=== PATIENT | female | born 1955 ===

== ENCOUNTER 2016-09-30 17:43 | Inpatient (IN) | payer MEDICARE, MEDICAID ==
[2016-09-30 17:44] VITALS: BMI 88.4
--- NOTE | 2016-09-30 18:06 | C.PDOC ---
History Of Present Illness 61 year old patient, with a past medical history of diabetes, hypertension, bilateral above knee amputation, chronic kidney disease, and chronic anemic on procrit, is brought to the ED by ambulance from [facility] for low hemoglobin and worsening renal function. Patient is generally awake and alert. She does not have dementia. Patient denies headache, nausea, vomiting, fever, chills, or any other complaints at this time. Time Seen by Provider: 09/30/16 18:09 Chief Complaint (Nursing): Medical Clearance History Per: Patient, EMS History/Exam Limitations: no limitations Onset/Duration Of Symptoms: Other Current Symptoms Are (Timing): Still Present Severity: None Pain Scale Rating Of: 0 Reports Recently: Treated By A Physician Recent travel outside of the [place]: No Additional History Per: EMS, Correction Past Medical History Reviewed: Historical Data, Nursing Documentation, Vital Signs Vital Signs: Last Vital Signs Temp 97.7 F 09/30/16 18:50 Pulse 64 09/30/16 17:46 Resp 18 09/30/16 17:46 BP 128/63 09/30/16 17:46 Pulse Ox 100 09/30/16 18:56 - Medical History PMH: Anemia, Anxiety, Asthma, COPD, Depression, Diabetes, Emphysema, HTN, Hypercholesterolemia, Hyperlipidemia, Peripheral Edema, Pneumonia, Chronic Kidney Disease Surgical History: - [facility] Procedures AMPUTATION STUMP NICKI (06/24/14) ANGIOPLASTY OR ATHERECTOMY OF OTHER NON-CORONARY VESSEL(S) (12/14/06) APPLICATION OF SPLINT (10/23/04) BELOW KNEE AMPUTAT NEC (12/14/06) CENTRAL VENOUS CATHETER PLACEMENT WITH GUIDANCE (01/30/15) CONTR ABD ARTERIOGRM NEC (10/28/06) CONTR CEREBR ARTERIOGRAM (09/27/04) CONTRAST AORTOGRAM (12/14/06) CONTRAST ARTERIOGRAM NEC (12/14/06) CONTRAST ARTERIOGRAM-LEG (10/28/06) CORONAR ARTERIOGR-2 CATH (08/17/06) DRAINAGE OF GALLBLADDER WITH DRAINAGE DEVICE, PERC APPROACH (02/21/15) ESOPHAGOGASTRODUODENOSCOPY [EGD] W/CLOSED BIOPSY (12/04/11) EXCIS DEBRIDE OF WOUND, INFECT, OR BURN (10/08/11) EXCISION OF SMALL INTESTINE, ENDO, DIAGN (06/26/16) EXCISION OF STOMACH, ENDO, DIAGN (02/21/15) FLUOROSCOPY R UP EXTREM VEIN W L OSM CONTRAST, GUIDANCE (04/08/16) INJECT ANTICOAGULANT (09/18/06) INJECT/INFUSE NEC (05/15/06) INSERTION OF INFUSION DEV INTO SUP VENA CAVA, PERC APPROACH (06/26/16) INSERTION OF [id number] PERIPHERAL VESSEL STENT(S) (10/28/06) INSERTION OF ONE VASCULAR STENT (09/18/06) INSERTION OF THREE VASCULAR STENTS (09/18/06) INTRODUCE OF OTH THERAP SUBST INTO RESP TRACT, VIA OPENING (02/21/15) LEFT HEART CARDIAC CATH (08/17/06) LT HEART ANGIOCARDIOGRAM (08/17/06) MAGNETIC RESONANCE IMAGING OF BRAIN AND BRAIN STEM (05/21/03) MRI OF OTHER AND UNSPECIFIED SITES (09/27/04) NEBULIZER THERAPY (05/26/12) NON-INVASIVE MECHANICAL VENTILATION (10/08/11) NONEXCIS DEBRID OF WOUND, INFECT, OR BURN (09/08/14) PACKED CELL TRANSFUSION (07/18/14) PERC ANGIOPLASTY OR ATHERECTOMY OF PRECER (EXTRACRAN) VES(S) (09/18/06) PERC INSERTION OF CAROTID ARTERY STENT(S) (09/18/06) PROCEDURE ON SINGLE VESSEL (09/18/06) PROCEDURE ON TWO VESSELS (09/18/06) TRANSFUSE NONAUT RED BLOOD CELLS IN PERIPH VEIN, PERC (06/26/16) ULTRASONOGRAPHY OF RIGHT UPPER EXTREMITY VEINS, GUIDANCE (04/08/16) ULTRASONOGRAPHY OF SUPERIOR VENA CAVA, GUIDANCE (12/13/15) UPPER LIMB ENDARTERECTOM (12/14/06) VACCINATION NEC (09/08/14) VENOUS CATHETERIZATION NEC (05/06/12) Family History: States: Unknown Family Hx - Social History Hx Tobacco Use: No Hx Alcohol Use: No Hx Substance Use: No - Immunization History Hx Tetanus Toxoid Vaccination: No Review Of Systems Except As Marked, All Systems Reviewed And Found Negative. Constitutional: Negative for: Fever Gastrointestinal: Negative for: Nausea, Vomiting Neurological: Negative for: Headache Physical Exam - Physical Exam Appears: Non-toxic, No Acute Distress Skin: Warm, Dry, Pale Head: Atraumatic, Normacephalic Eye(s): bilateral: EOMI, Conjunctiva Pale Ear(s): Bilateral: Normal Nose: Normal Oral Mucosa: Moist Lips: Pale Throat: Normal Neck: Normal ROM, Supple Chest: Symmetrical Cardiovascular: Rhythm Regular Respiratory: Normal Breath Sounds (poor air entry), No Rales, No Rhonchi, No Wheezing Gastrointestinal/Abdominal: Soft, No Tenderness, No Guarding, No Rebound, Other (morbidly obese) Rectal: Hemorrhoids, Other (normal brown stool in vault; no gross blood) Back: Normal Inspection, No CVA Tenderness Pelvic: Normal External Exam, Other (groin: excoritated and red from wearing diaper) Extremity: Other (no pressure sores; bilateral stumps are clean and well) Neurological/Psych: Oriented x3 ED Course And Treatment O2 Sat by Pulse Oximetry: 100 (room air) Pulse Ox Interpretation: Normal Progress Note: Plan: VBG, Labs, EKG, Chest x-ray. Case discussed with Dr. Sanders who states the patient usually goes to [facility]. It is requested patient be admitted to the hospitalist for occult bleeding. Medical Decision Making Medical Decision Making: Spoke with Dr. Sanders, requesting hospitalist Disposition - Disposition Disposition: HOSPITALIZED Disposition Time: 18:58 Condition: GUARDED - Clinical Impression Clinical Impression: Diabetes mellitus, Anemia, Chronic renal insufficiency - Scribe Statement The provider has reviewed the documentation as recorded by the Scribjeremiah Abdi Provider Attestation: All medical record entries made by the Scribe were at my direction and personally dictated by me. I have reviewed the chart and agree that the record accurately reflects my personal performance of the history, physical exam, medical decision making, and the department course for this patient. I have also personally directed, reviewed, and agree with the discharge instructions and disposition. Physician Patient Turnover Patient Signed Over To: Vinny Patton Handoff Comments: patient with multiple medical problems sent for anemia and renal isuficiency, pendung labs and dispo
--- NOTE | 2016-09-30 18:45 | RAD ---
HISTORY: Sepsis Patient COMPARISON: Chest x-ray performed 06/27/16 TECHNIQUE: Chest, one view. FINDINGS: Examination limited by habitus. LUNGS: Biapical pleural thickening. Mild pulmonary venous congestion. Small left pleural effusion and or atelectasis/infiltrate. No definite pneumothorax. Please note that chest x-ray has limited sensitivity for the detection of pulmonary masses. CARDIOVASCULAR: Cardiomegaly. OSSEOUS STRUCTURES: Degenerative changes. Osseous demineralization. VISUALIZED UPPER ABDOMEN: Unremarkable. OTHER FINDINGS: None. IMPRESSION: Mild pulmonary venous congestion. Small left pleural effusion and or atelectasis/infiltrate. Cardiomegaly.
[2016-09-30 19:06] LABS: VENOUS BLOOD GAS BASE EXCESS 7.4 mmol/L (0.0-2.0); VENOUS BLOOD GAS PCO2 60 mmHg (40-60); VENOUS BLOOD PH 7.37 (7.32-7.43)
[2016-09-30 19:07] LABS: RBC URINE 75 /hpf (0-3); URINE BILIRUBIN NEGATIVE (NEGATIVE); URINE COLOR Yellow (YELLOW); URINE GLUCOSE (UA) NORMAL (Normal); URINE KETONE NEGATIVE (NEGATIVE); URINE PROTEIN 2+ mg/dL (NEGATIVE); URINE UROBILINOGEN NORMAL mg/dL (0.2-1.0); WBC CLUMPS MANY /hpf; WBC URINE 4193 /hpf (0-5)
[2016-09-30 19:08] LABS: URINE BACTERIA MANY (<OCC); URINE BLOOD 2+ (NEGATIVE); URINE LEUKOCYTE ESTERASE 3+ Leu/uL (Negative)
[2016-09-30 19:09] LABS: BASO # 0.1 K/uL (0.0-0.2); EOS # 0.3 K/uL (0.0-0.7); MONO # 0.5 K/uL (0.0-0.8); MONO % 6.6 % (0.0-10.0)
[2016-09-30] MEDS ORDERED: Ciprofloxacin 400mg/200ml D5W 400 MG/200 ML BAG IVPB STA (19:09)
[2016-09-30 19:12] LABS: POTASSIUM 5.4 mmol/L (3.6-5.2)
[2016-09-30 19:13] LABS: BASO % 0.9 % (0.0-2.0); EOS % 3.5 % (0.0-4.0); HEMATOCRIT 22.1 % (34.0-47.0); LYMPH # 1.2 K/uL (1.0-4.3); LYMPH % 14.8 % (20.0-40.0); MEAN CELL VOLUME 89.6 fL (81.0-99.0); MEAN CORPUSCULAR HEMOGLOBIN 27.6 pg (27.0-31.0); MEAN CORPUSCULAR HGB CONC 30.9 g/dL (33.0-37.0); MEAN PLATELET VOLUME 11.4 fL (7.2-11.7); RED CELL DISTRIBUTION WIDTH 16.5 % (11.5-14.5)
[2016-09-30 19:14] LABS: BILIRUBIN,TOTAL 0.6 mg/dL (0.2-1.3); TOTAL PROTEIN 7.1 g/dL (6.3-8.3)
[2016-09-30 19:15] LABS: CALCIUM 8.5 mg/dl (8.6-10.4)
[2016-09-30 19:26] LABS: TROPONIN I 0.052 ng/mL (0.00-0.120)
[2016-09-30] MEDS ORDERED: Ciprofloxacin 400mg/200ml D5W 400 MG/200 ML BAG IVPB ONE (19:49)
--- NOTE | 2016-09-30 20:11 | CP.PCM.HP ---
<Rashaad Mix - Last Filed: 10/01/16 03:39> History of Present Illness - History of Present Illness History of Present Illness: CC: "shortness of breath" 61 F with PMH anemia, asthma/COPD on O2, DM, HTN, HLD, CKD, bilateral lower extremity amputations [facility] and worsening renal function. As per staff, [facility] noticed the low hemoglobin and poor renal function on labs that were drawn. Patient stated that she was here because of shortness of breath for last 4-5 days. Patient is a poor historian. Patient does not have dementia and is AAO x 3. Besides the shortness of breath, patient did not really complain of much. She denies any pain currently. Nothing exacerbates shortness of breath while oxygen helps. Admits to cough with some production. Denies fever/chills, cp, palpitations, abd pain, n/v/d, constipation, incontinence, urinary symptoms. PMD: Dr. Bee PMH: anemia, asthma/COPD on O2, DM, HTN, HLD, CKD, bilateral lower extremity amputations Meds: As per EMR Allergy: imipenem/cilastatin, oxycodone PSH: bilateral AKA FH: unknown Social: denies tobacco/etoh/illicit drug use, lives at [facility] Present on Admission - Present on Admission Any Indicators Present on Admission: Yes History of DVT/PE: No History of Uncontrolled Diabetes: Yes Urinary Catheter: No Decubitus Ulcer Present: No Review of Systems - Constitutional Constitutional: absent: Chills, Headache - EENT Eyes: absent: Blurred Vision Ears: absent: Ear Discharge, Dizziness Nose/Mouth/Throat: absent: Nasal Congestion, Nasal Discharge, Nose Pain - Cardiovascular Cardiovascular: Dyspnea, Dyspnea on Exertion. absent: Chest Pain, Chest Pain at Rest, Chest Pain with Activity, Claudication, Diaphoresis, Lightheadedness, Palpitations - Respiratory Respiratory: Cough, Dyspnea, Dyspnea on Exertion. absent: Hemoptysis, Wheezing - Gastrointestinal Gastrointestinal: absent: Abdominal Pain, Constipation, Diarrhea, Fecal Incontinence, Nausea, Vomiting - Genitourinary Genitourinary: absent: Change in Urinary Stream, Difficulty Urinating, Dysuria - Musculoskeletal Musculoskeletal: absent: Numbness, Stiffness, Tingling - Integumentary Integumentary: absent: Lesions, New Lesions, Sores - Neurological Neurological: absent: Dizziness, Numbness, Syncope, Tingling, Tremor, Vertigo - Psychiatric Psychiatric: absent: Anxiety, Homicidal Ideation, Suicidal Ideation - Endocrine Endocrine: Fatigue. absent: Palpitations, Polydipsia, Polyphagia, Polyuria - Hematologic/Lymphatic Hematologic: absent: Easy Bleeding, Easy Bruising, Lymphadenopathy Past Patient History - Infectious Disease Hx of Infectious Diseases: None - Past Medical History & Family History Past Medical History?: Yes - Past Social History Smoking Status: Never Smoked - CARDIAC Hx Hypercholesterolemia: Yes Hx Hypertension: Yes Hx Peripheral Edema: Yes - PULMONARY Hx Asthma: Yes Hx Chronic Obstructive Pulmonary Disease (COPD): Yes Hx Emphysema: Yes Hx Pneumonia: Yes - HEENT Hx HEENT Problems: Yes (WEARS RX GLASSES) Hx Glaucoma: Yes - RENAL Hx Chronic Kidney Disease: Yes - HEMATOLOGICAL/ONCOLOGICAL Hx Anemia: Yes - INTEGUMENTARY Hx Dermatological Problems: Yes Other/Comment: notes from last pt visit/previous triage:redness under both breasts and b/l abd folds, healed skin to buttocks and sacrum - GASTROINTESTINAL Hx Gastrointestinal Disorders: Yes Other/Comment: obesity - GENITOURINARY/GYNECOLOGICAL Hx Genitourinary Disorders: Yes Hx Incontinence: Yes Hx Urinary Tract Infection: Yes - PSYCHIATRIC Hx Anxiety: Yes Hx Depression: Yes Hx Substance Use: No - ANESTHESIA Hx Anesthesia: Yes Hx Anesthesia Reactions: No Hx Malignant Hyperthermia: No Meds Allergies/Adverse Reactions: Allergies Allergy/AdvReac Type Severity Reaction Status Date / Time cilastatin sodium Allergy RASH Verified 09/30/16 17:52 [From Primaxin] imipenem [From Primaxin] Allergy RASH Verified 09/30/16 17:52 oxycodone Allergy RASH Verified 09/30/16 17:52 Physical Exam - Constitutional Appears: Non-toxic, No Acute Distress - Head Exam Head Exam: ATRAUMATIC, NORMOCEPHALIC - Eye Exam Eye Exam: EOMI, Normal appearance Pupil Exam: PERRL - ENT Exam ENT Exam: Mucous Membranes Moist - Neck Exam Neck exam: Positive for: Full Rom, Normal Inspection - Respiratory Exam Respiratory Exam: Clear to Auscultation Bilateral, NORMAL BREATHING PATTERN. absent: Accessory Muscle Use, Rales, Rhonchi, Wheezes, Respiratory Distress - Cardiovascular Exam Cardiovascular Exam: REGULAR RHYTHM, +S1, +S2 - GI/Abdominal Exam GI & Abdominal Exam: Normal Bowel Sounds, Soft. absent: Distended, Firm, Guarding, Rebound, Tenderness - Rectal Exam Rectal Exam: Hemorrhoids - Extremities Exam Additional comments: no pressure ulcer patient has bilateral AKA - Back Exam Back exam: absent: CVA tenderness (L), CVA tenderness (R) - Neurological Exam Neurological exam: Alert, CN II-XII Intact, Oriented x3 - Psychiatric Exam Psychiatric exam: Normal Affect, Normal Mood - Skin Skin Exam: Dry, Intact, Pallor Results - Vital Signs Recent Vital Signs: Last Vital Signs Temp 97.7 F 09/30/16 18:50 Pulse 64 09/30/16 17:46 Resp 18 09/30/16 17:46 BP 128/63 09/30/16 17:46 Pulse Ox 100 09/30/16 19:01 - Labs Result Diagrams: 09/30/16 18:59 09/30/16 18:59 Assessment & Plan - Assessment and Plan (Free Text) Plan: Anemia Telemetry hgb 6.8 transfuse 2 units Nephrology consult, Dr. Saeed, help appreciated Iron studies Protein electrophoresis studies Immunofixation Beta-2 microglobulins Procrit 10,000 unit SC MWF NS 60 cc/hr Dyspnea history of asthma and COPD CXR: mild pulmonary congestion. small left pleural effusion vs infiltrate/ atelectasis (see full report) Duonebs Cefepime 1 gm IVPB Q12H Azithromycin 500 mg IVPB daily Lasix 40 mg PO BID DM ISS Accuchecks Insulin aspart 20 units SC ACB/15 units SC ACD HTN Hydralazine 75 mg PO TID HLD Crestor 10 mg PO HS CKD Nephrology consult, Dr. Saeed, help appreciated NS 60 cc/hr Bun/Cr 71/3.7 Prophylactic Measures chemical anticoagulation contraindicated to FOBT+ and anemia Miralax 17 gm PO daily Protonix 40 mg PO daily Gabapentin 100 mg PO TID Maalox 30 ml PO Q6H PRN Tylenol 650 mg PO Q6H PRN HHD with mod carb, renal <Remi Blackwood - Last Filed: 10/01/16 06:19> Results - Vital Signs Recent Vital Signs: Last Vital Signs Temp 98.4 F 10/01/16 04:40 Pulse 72 10/01/16 04:40 Resp 20 10/01/16 04:40 BP 126/51 L 10/01/16 04:40 Pulse Ox 100 10/01/16 04:40 - Labs Result Diagrams: 09/30/16 18:59 09/30/16 18:59 Labs: Laboratory Results - last 24 hr 09/30/16 09/30/16 19:43 21:40 POC Glucose (mg/dL) 135 H Blood Type O POSITIVE Antibody Screen Negative Assessment & Plan - Date & Time Date: 10/01/16 (I have seen and examined the patient. I agree with the findings and plan of care as documented by Dr. Mix. Patient with anemia. Also with CKD. Consult to Nephro. Transfuse 2 units. Iron studies. Retic count. Monitor vitals closely. Also with history of diabetes. NISS and Accuchecks. Monitor for acute changes.) Time: 06:18 Attending/Attestation - Attestation I have personally seen and examined this patient.: Yes I have fully participated in the care of the patient.: Yes I have reviewed all pertinent clinical information: Yes
[2016-09-30] MEDS ORDERED: Alum-Mag Hydrox-Simethicone Susp (30 mL) PO PRN (20:39)
--- NOTE | 2016-09-30 21:07 | CP.PCM.CON ---
History of Present Illness - History of Present Illness History of Present Illness: pt seen and examined, full consult is dictated #[id number] 1. jignesh on ckd 2. anemia 3. r/o MGUS r/o MM repeat sif,uif,upep,spep, fe,tibc, ferritin Past Patient History - Infectious Disease Hx of Infectious Diseases: None - Past Medical History & Family History Past Medical History?: Yes - Past Social History Smoking Status: Never Smoked - CARDIAC Hx Hypercholesterolemia: Yes Hx Hypertension: Yes Hx Peripheral Edema: Yes - PULMONARY Hx Asthma: Yes Hx Chronic Obstructive Pulmonary Disease (COPD): Yes Hx Emphysema: Yes Hx Pneumonia: Yes - HEENT Hx HEENT Problems: Yes (WEARS RX GLASSES) Hx Glaucoma: Yes - RENAL Hx Chronic Kidney Disease: Yes - HEMATOLOGICAL/ONCOLOGICAL Hx Anemia: Yes - INTEGUMENTARY Hx Dermatological Problems: Yes Other/Comment: notes from last pt visit/previous triage:redness under both breasts and b/l abd folds, healed skin to buttocks and sacrum - GASTROINTESTINAL Hx Gastrointestinal Disorders: Yes Other/Comment: obesity - GENITOURINARY/GYNECOLOGICAL Hx Genitourinary Disorders: Yes Hx Incontinence: Yes Hx Urinary Tract Infection: Yes - PSYCHIATRIC Hx Anxiety: Yes Hx Depression: Yes Hx Substance Use: No - ANESTHESIA Hx Anesthesia: Yes Hx Anesthesia Reactions: No Hx Malignant Hyperthermia: No Meds Allergies/Adverse Reactions: Allergies Allergy/AdvReac Type Severity Reaction Status Date / Time cilastatin sodium Allergy RASH Verified 09/30/16 17:52 [From Primaxin] imipenem [From Primaxin] Allergy RASH Verified 09/30/16 17:52 oxycodone Allergy RASH Verified 09/30/16 17:52 - Medications Medications: Current Medications Acetaminophen (Tylenol 325mg Tab) 650 mg PO Q6H PRN PRN Reason: Fever >100.4 F Al Hydrox/Mg Hydrox/Simethicone (Maalox Plus 30 Ml) 30 ml PO Q6 PRN PRN Reason: Heartburn Albuterol/Ipratropium (Duoneb 3 Mg/0.5 Mg (3 Ml) Ud) 3 ml IH RQ4 [facility] Aspirin (Ecotrin) 81 mg PO DAILY [facility] Calcium Acetate (Phoslo) 667 mg PO AC [facility] Carvedilol (Coreg) 12.5 mg PO BID [facility] Dorzolamide HCl (Trusopt) 1 ml OU BID [facility] Epoetin Armin (Procrit) 10,000 unit SC MWF [facility] Stop: 10/06/16 09:01 Furosemide (Lasix) 40 mg PO BID [facility] Gabapentin (Neurontin) 100 mg PO TID [facility] Home Med (Brimonidine 0.15% [Alphagan P 0.15% Opht]) 1 drop OU TID [facility] Hydralazine HCl (Apresoline) 75 mg PO TID [facility] Azithromycin 500 mg/ Sodium (Chloride) 250 mls @ 250 mls/hr IVPB DAILY [facility] Cefepime HCl (Maxipime Iv 1 Gm Premix) 1 gm in 50 mls @ 100 mls/hr IVPB Q12 [facility] Insulin Aspart (Novolog Mix 70/30 (70/30 Units/Ml)) 15 units SC ACD [facility] Insulin Aspart (Novolog Mix 70/30 (70/30 Units/Ml)) 20 units SC ACB [facility] Insulin Human Regular (Novolin R) 0 unit SC ACHS [facility] PRN Reason: Protocol Lorazepam (Ativan) 1 mg PO TID PRN PRN Reason: Anxiety Pantoprazole Sodium (Protonix Ec Tab) 40 mg PO 0630 [facility] Polyethylene Glycol (Miralax) 17 gm PO DAILY [facility] Rosuvastatin Calcium (Crestor) 10 mg PO HS [facility] Results - Vital Signs Recent Vital Signs: Last Vital Signs Temp 97.7 F 09/30/16 18:50 Pulse 64 09/30/16 17:46 Resp 18 09/30/16 17:46 BP 128/63 09/30/16 17:46 Pulse Ox 100 09/30/16 19:01 - Labs Result Diagrams: 09/30/16 18:59 09/30/16 18:59 Labs: Laboratory Results - last 24 hr 09/30/16 19:43 Blood Type O POSITIVE Antibody Screen Negative
[2016-09-30] MEDS ORDERED: Sodium Chloride 0.45% 1,000 ML IV SCH (21:30)
[2016-09-30] MEDS: Cefepime IV 1 gm in Dextrose 1 GM/50 ML BAG IVPB SCH (21:42)
[2016-09-30] MEDS: (Novolin R) Insulin Human Regular 100 units/ml vial SC SCH (22:08)
[2016-10-01] MEDS: Albuterol-Ipratrop 3 mg / 0.5 (3 ml) UD IH SCH ×6 (00:10→23:51)
--- NOTE | 2016-10-01 05:41 | CON ---
DATE: 09/30/2016 The patient is located in room 652, bed A. REQUESTING PHYSICIAN: Dr. Remi Blackwood. REASON FOR RENAL CONSULTATION: Increased BUN and creatinine and for further evaluation and anemia. HISTORY OF PRESENT ILLNESS: The patient is a 61-year-old obese female with a bilateral amputee and a history of longstanding hypertension, diabetes, hyperlipidemia, chronic kidney disease, anxiety, anemia, COPD, asthma, depression, resident of senior care, was admitted through the Emergency Department . The patient was brought in by ambulance from [place], for low H and H and worsening renal function. The patient is awake, not in acute distress. Denies any headache, denies any nausea, vomiting. Denies any fever, cough. Denies any chills. Denies any dysuria or frequency. Denies any black stool and blood in the stool. PAST MEDICAL HISTORY: Significant for longstanding hypertension, diabetes, hyperlipidemia, chronic kidney disease, COPD, asthma, depression, and chronic kidney disease. PAST SURGICAL HISTORY: Status post bilateral below knee amputation. ALLERGIES: SHE IS ALLERGIC TO MARCELO AND IMIPENEM AND OXYCODONE. SOCIAL HISTORY: No smoking, no alcohol, no drugs. FAMILY HISTORY: Not significant. REVIEW OF SYSTEMS: Significant for anemia. All other review of systems are reviewed and are negative. PHYSICAL EXAMINATION: VITAL SIGNS: Blood pressure 147/74, pulse 80, respirations 18, temperature 97.8 , saturation 100%, height 5 feet and weight is 207 pounds. GENERAL: The patient is a 61-year-old elderly female, obese, with bilateral amputation. HEENT: Pupils normal, reactive to light and accommodation. Conjunctivae pale. Sclerae anicteric. Tongue is moist. NECK: Trachea midline. LUNGS: Symmetric on both sides. Bilateral breath sounds present. No crackles. CARDIOVASCULAR: [place] in the fifth intercostal space midclavicular line. S1 and S2 audible. No murmur or gallop. ABDOMEN: Normal in appearance. The patient has mild tenderness in the left lower quadrant and also left flank region. Bowel sounds present. No guarding, no rigidity. No hepatosplenomegaly. CENTRAL NERVOUS SYSTEM: The patient is alert, awake, oriented x 2-3. Sensory and motor system is grossly within normal limits. EXTREMITIES: Bilateral AKA. CURRENT MEDICATIONS: Include as follows: Hydralazine 75 mg p.o. t.i.d. azithromycin 500 mg p.o. 5 mg IV piggyback daily and eyedrops, also Coreg 12.5 mg p.o. b.i.d., Crestor 10 mg at bedtime, DuoNeb inhaler, Ecotrin 81 mg daily, Lasix 40 mg p.o. b.i.d., Maxipime 1 gram q. 12, MiraLax 17 grams p.o. daily, Neurontin 100 mg p.o. t.i.d., Novolin R for sliding scale, NovoLog 70/30 mix 20 units subQ ACD and 15 units subQ ACD, and PhosLo 667 mg p.o. b.i.d., Procrit 10, 000 units 3 times a week, Thursday, Thursday, Thursday, Protonix 40 mg daily, IV fluids half normal saline at 60 mL per hour started. LABORATORY DATA: Include as follows: As of 2016, WBC 8, hemoglobin 6.8 , hematocrit is 22.1, , ABG: pH 7.37 and pCO2 16, pO2 55, bicarbonate is 20 and saturation 95.4, sodium 130, potassium 5.4, chloride 99, CO2 32, BUN 71, creatinine 3.7, and glucose is 90, calcium 8.5, total bili 0.6, AST 22, ALT 17, alkaline phosphatase 50, troponin 0.052, and proBNP 7440, total protein 7.1, albumin is 3.5. Urinalysis: Yellow, turbid, pH is 6, , protein 2+, glucose normal, ketones negative, blood 2+, nitrites negative, bilirubin negative, urobilinogen normal, leukocyte esterase 3+, WBC 4193, RBCs 75 and WBCs, many, bacteria many. Stool for occult blood is positive. Influenza A and B is negative. SUMMARY: The patient is a 61-year-old elderly obese female with hypertension, diabetes, chronic kidney disease, anemia with bilateral amputation and left flank pain. 1. Renal failure, [id number] kidney disease versus progression of chronic kidney disease. Etiology is not clear, rule out diabetic nephropathy, rule out hypertensive nephrosclerosis. r/o MUGS 2. Severe anemia, most likely multifactorial, iron deficiency and cannot rule out ongoing GI loss. 3. Hypertension, c/w current meds , low na diet 4. COPD, c/w nasal o2 We will also repeat a urine immunofixation, serum immunofixation, and protein electrophoresis and also check iron, TIBC, ferritin level. We will continue IV fluids half normal saline at 60 mL per hour. Repeat CBC, BMP in a.m. after transfusion. We will follow with you. Thank you for allowing me to participate in your patient's care and transfuse as per the primary team. Asha Saeed MD cc: [id number] TT: 10/01/2016 05:41:10 Confirmation # [id number] Dictation # [id number] MTDD
[2016-10-01] MEDS: Pantoprazole 40 mg EC Tab PO SCH (06:27)
[2016-10-01 06:38] LABS: BASO % 0.6 % (0.0-2.0); EOS # 0.3 K/uL (0.0-0.7); EOS % 3.7 % (0.0-4.0); HEMATOCRIT 23.7 % (34.0-47.0); LYMPH # 0.8 K/uL (1.0-4.3); LYMPH % 12.2 % (20.0-40.0); MEAN CELL VOLUME 89.4 fL (81.0-99.0); MEAN CORPUSCULAR HEMOGLOBIN 28.4 pg (27.0-31.0); MEAN CORPUSCULAR HGB CONC 31.7 g/dL (33.0-37.0); MEAN PLATELET VOLUME 11.3 fL (7.2-11.7); MONO # 0.4 K/uL (0.0-0.8); MONO % 6.1 % (0.0-10.0); RED CELL DISTRIBUTION WIDTH 15.9 % (11.5-14.5); WHITE BLOOD COUNT 6.7 K/uL (4.8-10.8)
[2016-10-01 06:44] LABS: INR 1.1
[2016-10-01 07:11] LABS: CHOLESTEROL 101 mg/dL (0-199); IRON 51 ug/dL (37-170)
[2016-10-01 07:18] LABS: CHLORIDE 92 mmol/L (98-107)
[2016-10-01 07:19] LABS: POTASSIUM 4.4 mmol/L (3.6-5.2); SODIUM 129 mmol/L (132-148)
[2016-10-01 07:21] LABS: BILIRUBIN,TOTAL < 0.1 mg/dL (0.2-1.3); CARBON DIOXIDE 32 mmol/L (22-30); GFR AFRICAN-AMERICAN 14
[2016-10-01 07:22] LABS: ALB/GLOB RATIO 0.9 (1.0-2.1); ALKALINE PHOSPHATASE 54 U/L (38-126); ALT/SGPT 24 U/L (9-52); AST/SGOT 13 U/L (14-36); BLOOD UREA NITROGEN 66 mg/dL (7-17); CALCIUM 8.2 mg/dl (8.6-10.4); GLUCOSE,RANDOM 136 mg/dL (65-105); TOTAL PROTEIN 6.1 g/dL (6.3-8.3)
[2016-10-01 07:28] LABS: T4 8.92 ug/dL (5.5-11.0)
[2016-10-01 07:41] LABS: THYROID STIMULATING HORMONE 2.45 mIU/L (0.46-4.68)
[2016-10-01] MEDS: (Novolog Mix 70/30) Insulin Aspart/Insulin Aspar 100 units/ml SC SCH ×2 (08:53→17:54)
[2016-10-01] MEDS: (Novolin R) Insulin Human Regular 100 units/ml vial SC SCH ×4 (08:54→23:11)
[2016-10-01] MEDS: EPOETIN ALFA 10,000 UNIT/ML ML SC SCH (08:58)
[2016-10-01] MEDS ORDERED: Home Med 1 UNIT (Brimonidine 0.15% [Alphagan P 0.15% Opht] 1 DROP) OU SCH (10:00)
[2016-10-01] MEDS: Cefepime IV 1 gm in Dextrose 1 GM/50 ML BAG IVPB SCH (10:39)
[2016-10-01] MEDS: POLYETHYLENE GLYCOL 3350 17 GM/Dose PACKET PO SCH (10:41)
[2016-10-01] MEDS: Brimonidine 0.2% Opth Sol (5ml) OU SCH ×3 (11:00→17:55)
[2016-10-01] MEDS: Azithromycin 500 MG in Sodium Chloride 0.9% 250 ML IVPB SCH (11:00)
[2016-10-01] MEDS: Dorzolamide 2% Opht Sol 10ml OU SCH ×2 (11:26→17:56)
--- NOTE | 2016-10-01 12:39 | CP.PCM.CON ---
<Lizeth Scott - Last Filed: 10/01/16 13:34> History of Present Illness - History of Present Illness History of Present Illness: Gastroenterology Fellow/PGY4 Consult Note 61 year old female with history of COPD/asthma on oxygen supplementation, Bilateral AKA, CKD, Hypertension, Hyperlipidemia, and normocytic anemia previously requiring blood transfusions, most recently on discharge 07/01/16 presenting from nursing facility with anemia and worsening renal function. Patient is a poor historian with moments of confusion. She notes being short of breath when not using oxygen supplementation with associated productive cough for the last four days. Denies nausea, vomiting, hematemesis, hemoptysis, abdominal pain, distension, bloating, heartburn, indigestion, acid reflux, diarrhea, constipation, melena, hematochezia, or unintentional weight loss. EGD 11/2011 showed a gastric hyperplastic polyp. Nursing records show no NSAIDs administered. EGD with EUS 02/2015showed acute on chronic emphysematous cholecystitis with eventual percutaneous cholecystostomy tube placement and a gastric hyperplastic polyp. Most recent EGD 06/30/16 to evaluate anemia showed nonbleeding gaastric erosions, erythematous duodenopathy, and a moderate-sized hiatal hernia. Patient refused colonoscopy previously scheduled during inpatient stay on 07/01/16. Family-denies colon cancer Social- denies tobacco, alcohol, illicit drug use Surgery- Bilateral AKA, left labial bartholian abscess debridement Review of Systems - Review of Systems Review of Systems: A 12-point review of systems negative except for as above Past Patient History - Infectious Disease Hx of Infectious Diseases: None - Past Medical History & Family History Past Medical History?: Yes - Past Social History Smoking Status: Never Smoked - CARDIAC Hx Hypercholesterolemia: Yes Hx Hypertension: Yes Hx Peripheral Edema: Yes - PULMONARY Hx Asthma: Yes Hx Chronic Obstructive Pulmonary Disease (COPD): Yes Hx Emphysema: Yes Hx Pneumonia: Yes - HEENT Hx HEENT Problems: Yes (WEARS RX GLASSES) Hx Glaucoma: Yes - RENAL Hx Chronic Kidney Disease: Yes - HEMATOLOGICAL/ONCOLOGICAL Hx Anemia: Yes - INTEGUMENTARY Hx Dermatological Problems: Yes Other/Comment: notes from last pt visit/previous triage:redness under both breasts and b/l abd folds, healed skin to buttocks and sacrum - GASTROINTESTINAL Hx Gastrointestinal Disorders: Yes Other/Comment: obesity - GENITOURINARY/GYNECOLOGICAL Hx Genitourinary Disorders: Yes Hx Incontinence: Yes Hx Urinary Tract Infection: Yes - PSYCHIATRIC Hx Anxiety: Yes Hx Depression: Yes Hx Substance Use: No - ANESTHESIA Hx Anesthesia: Yes Hx Anesthesia Reactions: No Hx Malignant Hyperthermia: No Meds Allergies/Adverse Reactions: Allergies Allergy/AdvReac Type Severity Reaction Status Date / Time cilastatin sodium Allergy RASH Verified 09/30/16 17:52 [From Primaxin] imipenem [From Primaxin] Allergy RASH Verified 09/30/16 17:52 oxycodone Allergy RASH Verified 09/30/16 17:52 - Medications Medications: Current Medications Acetaminophen (Tylenol 325mg Tab) 650 mg PO Q6H PRN PRN Reason: Fever >100.4 F Al Hydrox/Mg Hydrox/Simethicone (Maalox Plus 30 Ml) 30 ml PO Q6 PRN PRN Reason: Heartburn Albuterol/Ipratropium (Duoneb 3 Mg/0.5 Mg (3 Ml) Ud) 3 ml IH RQ4 [facility] Last Admin: 10/01/16 11:20 Dose: 3 ml Aspirin (Ecotrin) 81 mg PO DAILY [facility] Brimonidine Tartrate (Alphagan 0.2% Opht) 0 ml OU TID [facility] Last Admin: 10/01/16 11:00 Dose: 1 drop Calcium Acetate (Phoslo) 667 mg PO AC [facility] Last Admin: 10/01/16 08:52 Dose: 667 mg Carvedilol (Coreg) 12.5 mg PO BID [facility] Last Admin: 10/01/16 10:37 Dose: 12.5 mg Dorzolamide HCl (Trusopt) 1 ml OU BID [facility] Last Admin: 10/01/16 11:26 Dose: 1 drop Epoetin Armin (Procrit) 10,000 unit RI MWF [facility] Stop: 10/06/16 09:01 Last Admin: 10/01/16 08:58 Dose: 10,000 unit Furosemide (Lasix) 40 mg PO BID [facility] Last Admin: 10/01/16 10:37 Dose: 40 mg Gabapentin (Neurontin) 100 mg PO TID [facility] Last Admin: 10/01/16 10:37 Dose: 100 mg Hydralazine HCl (Apresoline) 75 mg PO TID [facility] Last Admin: 10/01/16 10:37 Dose: 75 mg Azithromycin 500 mg/ Sodium (Chloride) 250 mls @ 250 mls/hr IVPB DAILY [facility] Last Admin: 10/01/16 11:00 Dose: 250 mls/hr Sodium Chloride (Sodium Chloride 0.45%) 1,000 mls @ 60 mls/hr IV .[id number] [facility] Last Admin: 10/01/16 03:34 Dose: 60 mls/hr Cefepime HCl 0.5 gm/ Dextrose 50 mls @ 100 mls/hr IVPB DAILY [facility] Insulin Aspart (Novolog Mix 70/30 (70/30 Units/Ml)) 15 units SC ACD [facility] Insulin Aspart (Novolog Mix 70/30 (70/30 Units/Ml)) 20 units SC ACB [facility] Last Admin: 10/01/16 08:53 Dose: 20 units Insulin Human Regular (Novolin R) 0 unit SC ACHS [facility] PRN Reason: Protocol Last Admin: 10/01/16 08:54 Dose: 3 unit Lorazepam (Ativan) 1 mg PO TID PRN PRN Reason: Anxiety Pantoprazole Sodium (Protonix Ec Tab) 40 mg PO 0630 [facility] Last Admin: 10/01/16 06:27 Dose: 40 mg Polyethylene Glycol (Miralax) 17 gm PO DAILY [facility] Last Admin: 10/01/16 10:41 Dose: Not Given Rosuvastatin Calcium (Crestor) 10 mg PO HS [facility] Last Admin: 09/30/16 22:54 Dose: 10 mg Physical Exam - Constitutional Appears: Non-toxic, No Acute Distress - Head Exam Head Exam: ATRAUMATIC, NORMOCEPHALIC - Eye Exam Eye Exam: EOMI, PERRL Pupil Exam: PERRL. absent: Miosis, Mydriatic - ENT Exam ENT Exam: Mucous Membranes Moist, Normal Oropharynx - Neck Exam Neck exam: Positive for: Full Rom, Normal Inspection - Respiratory Exam Respiratory Exam: Clear to Auscultation Bilateral, Rhonchi. absent: Rales, Wheezes - Cardiovascular Exam Cardiovascular Exam: RRR, +S1, +S2. absent: Gallop, Rubs - GI/Abdominal Exam GI & Abdominal Exam: Guarding, Normal Bowel Sounds, Soft, Tenderness. absent: Distended, Organomegaly, Rebound, Rigid Additional comments: diffuse severe tenderness to palpation - Rectal Exam Rectal Exam: Hemorrhoids, NORMAL INSPECTION. absent: Black Stool, Bloody Stool , Fecal Impaction Additional comments: green stool in rectal vault - Extremities Exam Additional comments: B/L AKA, stumps without erythema or induration; thighs with normal inspection - Neurological Exam Neurological exam: Alert, Oriented x3 - Psychiatric Exam Psychiatric exam: Normal Affect, Normal Mood - Skin Skin Exam: Dry, Intact, Normal Color, Warm Results - Vital Signs Recent Vital Signs: Last Vital Signs Temp 98.4 F 10/01/16 07:10 Pulse 77 10/01/16 10:21 Resp 20 10/01/16 07:10 BP 131/51 L 10/01/16 10:37 Pulse Ox 100 10/01/16 07:10 - Labs Result Diagrams: 10/01/16 13:20 10/01/16 06:25 Labs: Laboratory Results - last 24 hr 09/30/16 09/30/16 10/01/16 19:43 21:40 06:25 WBC RBC Hgb Hct MCV MCH MCHC RDW Plt Count MPV Neut % (Auto) Lymph % (Auto) Traverse % (Auto) Eos % (Auto) Baso % (Auto) Neut # Lymph # Traverse # Eos # Baso # PT INR APTT Sodium Potassium Chloride Carbon Dioxide Anion Gap BUN Creatinine Est GFR ( Amer) Est GFR (Non-Af Amer) POC Glucose (mg/dL) 135 H Random Glucose Calcium Iron TIBC % Saturation Ferritin 165.0 Total Bilirubin AST ALT Alkaline Phosphatase Troponin I 0.0590 Total Protein Albumin Globulin Albumin/Globulin Ratio Triglycerides 119 D Cholesterol 101 LDL Cholesterol Direct < 30 HDL Cholesterol 42 Thyroxine (T4) 8.92 TSH 3rd Generation 2.45 Blood Type O POSITIVE Antibody Screen Negative 10/01/16 10/01/16 10/01/16 06:25 06:25 06:25 WBC 6.7 RBC 2.66 L Hgb 7.5 L Hct 23.7 L MCV 89.4 MCH 28.4 MCHC 31.7 L RDW 15.9 H Plt Count 168 MPV 11.3 Neut % (Auto) 77.4 H Lymph % (Auto) 12.2 L Traverse % (Auto) 6.1 Eos % (Auto) 3.7 Baso % (Auto) 0.6 Neut # 5.2 Lymph # 0.8 L Traverse # 0.4 Eos # 0.3 Baso # 0.0 PT 11.8 INR 1.1 APTT 35 H Sodium Potassium Chloride Carbon Dioxide Anion Gap BUN Creatinine Est GFR ( Amer) Est GFR (Non-Af Amer) POC Glucose (mg/dL) Random Glucose Calcium Iron 51 TIBC 172 L % Saturation 30 Ferritin Total Bilirubin AST ALT Alkaline Phosphatase Troponin I Total Protein Albumin Globulin Albumin/Globulin Ratio Triglycerides Cholesterol LDL Cholesterol Direct HDL Cholesterol Thyroxine (T4) TSH 3rd Generation Blood Type Antibody Screen 10/01/16 10/01/16 10/01/16 06:25 06:35 11:08 WBC RBC Hgb Hct MCV MCH MCHC RDW Plt Count MPV Neut % (Auto) Lymph % (Auto) Traverse % (Auto) Eos % (Auto) Baso % (Auto) Neut # Lymph # Traverse # Eos # Baso # PT INR APTT Sodium 129 L Potassium 4.4 Chloride 92 L Carbon Dioxide 32 H Anion Gap 9 L BUN 66 H Creatinine 3.9 H Est GFR ( Amer) 14 Est GFR (Non-Af Amer) 12 POC Glucose (mg/dL) 201 H 121 H Random Glucose 136 H Calcium 8.2 L Iron TIBC % Saturation Ferritin Total Bilirubin < 0.1 L AST 13 L D ALT 24 Alkaline Phosphatase 54 Troponin I 0.0600 Total Protein 6.1 L Albumin 2.8 L Globulin 3.2 Albumin/Globulin Ratio 0.9 L Triglycerides Cholesterol LDL Cholesterol Direct HDL Cholesterol Thyroxine (T4) TSH 3rd Generation Blood Type Antibody Screen Assessment & Plan - Assessment and Plan (Free Text) Assessment: 61 year old female with history of COPD/asthma on oxygen supplementation, Bilateral AKA, CKD, Hypertension, Hyperlipidemia, and normocytic anemia previously requiring blood transfusions, most recently on discharge 07/01/16 presenting from nursing facility with anemia and worsening renal function. Active treatment of abdominal pain, acute on chronic normocytic anemia s/p 1 of 2 units pRBCs, and acute renal insufficiency on CKD. Most recent EGD 06/30/16 to evaluate anemia showed nonbleeding gaastric erosions, erythematous duodenopathy, and a moderate-sized hiatal hernia. Patient refused colonoscopy previously scheduled during inpatient stay on 07/01/16. Plan: >no overt signs of GI blood loss >rectal exam performed showed green stool >ordered CT A/P PO contrast >NPO, await CT results >trial clear liquids once acute pathology ruled out >continue PPI >supportive care: antiemetics, pain control >serial CBC pending >daily labs >on Cefepime and Azithromycin for HCAP coverage >on Lasix for volume overload >will discuss colonoscopy evaluation to evaluate anemia >patient refused colonoscopy evaluation on 07/01/16 >episodes of confusion during history taking >will contact family if unable to make medical decisions for further care >further recommendations based on workup <Ervin Mendez - Last Filed: 10/01/16 13:53> Meds - Medications Medications: Current Medications Acetaminophen (Tylenol 325mg Tab) 650 mg PO Q6H PRN PRN Reason: Fever >100.4 F Al Hydrox/Mg Hydrox/Simethicone (Maalox Plus 30 Ml) 30 ml PO Q6 PRN PRN Reason: Heartburn Albuterol/Ipratropium (Duoneb 3 Mg/0.5 Mg (3 Ml) Ud) 3 ml IH RQ4 [facility] Last Admin: 10/01/16 11:20 Dose: 3 ml Aspirin (Ecotrin) 81 mg PO DAILY [facility] Brimonidine Tartrate (Alphagan 0.2% Opht) 0 ml OU TID [facility] Last Admin: 10/01/16 11:00 Dose: 1 drop Calcium Acetate (Phoslo) 667 mg PO AC [facility] Last Admin: 10/01/16 12:40 Dose: Not Given Carvedilol (Coreg) 12.5 mg PO BID [facility] Last Admin: 10/01/16 10:37 Dose: 12.5 mg Dorzolamide HCl (Trusopt) 1 ml OU BID [facility] Last Admin: 10/01/16 11:26 Dose: 1 drop Epoetin Armin ([facility]) [facility] Stop: 10/06/16 09:01 Last Admin: 10/01/16 08:58 Dose: 10,000 unit Furosemide (Lasix) 40 mg PO BID [facility] Last Admin: 10/01/16 10:37 Dose: 40 mg Gabapentin (Neurontin) 100 mg PO TID [facility] Last Admin: 10/01/16 10:37 Dose: 100 mg Hydralazine HCl (Apresoline) 75 mg PO TID [facility] Last Admin: 10/01/16 10:37 Dose: 75 mg Azithromycin 500 mg/ Sodium (Chloride) 250 mls @ 250 mls/hr IVPB DAILY [facility] Last Admin: 10/01/16 11:00 Dose: 250 mls/hr Sodium Chloride (Sodium Chloride 0.45%) 1,000 mls @ 60 mls/hr IV .[id number] [facility] Last Admin: 10/01/16 03:34 Dose: 60 mls/hr Cefepime HCl 0.5 gm/ Dextrose 50 mls @ 100 mls/hr IVPB DAILY [facility] Insulin Aspart (Novolog Mix 70/30 (70/30 Units/Ml)) 15 units SC ACD [facility] Insulin Aspart (Novolog Mix 70/30 (70/30 Units/Ml)) 20 units SC ACB [facility] Last Admin: 10/01/16 08:53 Dose: 20 units Insulin Human Regular (Novolin R) 0 unit SC ACHS [facility] PRN Reason: Protocol Last Admin: 10/01/16 12:39 Dose: Not Given Lorazepam (Ativan) 1 mg PO TID PRN PRN Reason: Anxiety Pantoprazole Sodium (Protonix Ec Tab) 40 mg PO 0630 [facility] Last Admin: 10/01/16 06:27 Dose: 40 mg Polyethylene Glycol (Miralax) 17 gm PO DAILY [facility] Last Admin: 10/01/16 10:41 Dose: Not Given Rosuvastatin Calcium (Crestor) 10 mg PO HS [facility] Last Admin: 09/30/16 22:54 Dose: 10 mg Results - Vital Signs Recent Vital Signs: Last Vital Signs Temp 98.4 F 10/01/16 07:10 Pulse 77 10/01/16 10:21 Resp 20 10/01/16 07:10 BP 131/51 L 10/01/16 10:37 Pulse Ox 100 10/01/16 07:10 - Labs Result Diagrams: 10/01/16 13:20 10/01/16 06:25 Labs: Laboratory Results - last 24 hr 09/30/16 09/30/16 10/01/16 19:43 21:40 06:25 WBC RBC Hgb Hct MCV MCH MCHC RDW Plt Count MPV Neut % (Auto) Lymph % (Auto) Traverse % (Auto) Eos % (Auto) Baso % (Auto) Neut # Lymph # Traverse # Eos # Baso # PT INR APTT Sodium Potassium Chloride Carbon Dioxide Anion Gap BUN Creatinine Est GFR ( Amer) Est GFR (Non-Af Amer) POC Glucose (mg/dL) 135 H Random Glucose Calcium Iron TIBC % Saturation Ferritin 165.0 Total Bilirubin AST ALT Alkaline Phosphatase Troponin I 0.0590 Total Protein Albumin Globulin Albumin/Globulin Ratio Triglycerides 119 D Cholesterol 101 LDL Cholesterol Direct < 30 HDL Cholesterol 42 Thyroxine (T4) 8.92 TSH 3rd Generation 2.45 Blood Type O POSITIVE Antibody Screen Negative 10/01/16 10/01/16 10/01/16 06:25 06:25 06:25 WBC 6.7 RBC 2.66 L Hgb 7.5 L Hct 23.7 L MCV 89.4 MCH 28.4 MCHC 31.7 L RDW 15.9 H Plt Count 168 MPV 11.3 Neut % (Auto) 77.4 H Lymph % (Auto) 12.2 L Traverse % (Auto) 6.1 Eos % (Auto) 3.7 Baso % (Auto) 0.6 Neut # 5.2 Lymph # 0.8 L Traverse # 0.4 Eos # 0.3 Baso # 0.0 PT 11.8 INR 1.1 APTT 35 H Sodium Potassium Chloride Carbon Dioxide Anion Gap BUN Creatinine Est GFR ( Amer) Est GFR (Non-Af Amer) POC Glucose (mg/dL) Random Glucose Calcium Iron 51 TIBC 172 L % Saturation 30 Ferritin Total Bilirubin AST ALT Alkaline Phosphatase Troponin I Total Protein Albumin Globulin Albumin/Globulin Ratio Triglycerides Cholesterol LDL Cholesterol Direct HDL Cholesterol Thyroxine (T4) TSH 3rd Generation Blood Type Antibody Screen 10/01/16 10/01/16 10/01/16 06:25 06:35 11:08 WBC RBC Hgb Hct MCV MCH MCHC RDW Plt Count MPV Neut % (Auto) Lymph % (Auto) Traverse % (Auto) Eos % (Auto) Baso % (Auto) Neut # Lymph # Traverse # Eos # Baso # PT INR APTT Sodium 129 L Potassium 4.4 Chloride 92 L Carbon Dioxide 32 H Anion Gap 9 L BUN 66 H Creatinine 3.9 H Est GFR ( Amer) 14 Est GFR (Non-Af Amer) 12 POC Glucose (mg/dL) 201 H 121 H Random Glucose 136 H Calcium 8.2 L Iron TIBC % Saturation Ferritin Total Bilirubin < 0.1 L AST 13 L D ALT 24 Alkaline Phosphatase 54 Troponin I 0.0600 Total Protein 6.1 L Albumin 2.8 L Globulin 3.2 Albumin/Globulin Ratio 0.9 L Triglycerides Cholesterol LDL Cholesterol Direct HDL Cholesterol Thyroxine (T4) TSH 3rd Generation Blood Type Antibody Screen 10/01/16 13:20 WBC 5.5 RBC 2.47 L Hgb 6.9 L Hct 22.0 L MCV 88.9 MCH 28.1 MCHC 31.6 L RDW 16.0 H Plt Count 148 MPV 10.5 Neut % (Auto) 76.7 H Lymph % (Auto) 12.3 L Traverse % (Auto) 7.3 Eos % (Auto) 2.8 Baso % (Auto) 0.9 Neut # 4.3 Lymph # 0.7 L Traverse # 0.4 Eos # 0.2 Baso # 0.0 PT INR APTT Sodium Potassium Chloride Carbon Dioxide Anion Gap BUN Creatinine Est GFR ( Amer) Est GFR (Non-Af Amer) POC Glucose (mg/dL) Random Glucose Calcium Iron TIBC % Saturation Ferritin Total Bilirubin AST ALT Alkaline Phosphatase Troponin I Total Protein Albumin Globulin Albumin/Globulin Ratio Triglycerides Cholesterol LDL Cholesterol Direct HDL Cholesterol Thyroxine (T4) TSH 3rd Generation Blood Type Antibody Screen Attending/Attestation - Attestation I have personally seen and examined this patient.: Yes I have fully participated in the care of the patient.: Yes I have reviewed all pertinent clinical information: Yes Notes (Text): 10/01/16 13:46 I have seen and examined patient with GI fellow. Agree with above documentation with the following additions. In brief, this is a 61 year old female with complex medical history including COPD, DM, CKD, HTN, PVD s/p bilateral below knee amputations, who presents to hospital with progressive anemia and worsening renal function. GI called for evaluation of anemia with presence of blood in stool. She describes a productive cough along with dyspnea on minimal exertion/movements for the past few days. She currently is seen resting in bed and complains of diffuse abdominal pain but otherwise denies vomiting, diarrhea, fever/chills, weight loss, melena, rectal bleeding, or change in bowel habits. She had an EGD recently in June 2016 which showed non-bleeding gastric erosions, no prior colonoscopy. CKD Anemia, normocytic, blood in stool DM HTN PVD s/p b/l lower extremity amputations COPD, productive cough Abdominal pain - H/H stable, s/p PRBC transfusion, continue to monitor. Rectal exam performed at bedside shows presence of soft green stool, no blood in rectal vault or mass lesions palpated. - Obtain CT abdomen/pelvis given diffuse abdominal pain and worsening anemia - Obtain iron studies - Continue with PPI therapy - Clear liquid diet as tolerated - Continue with antibiotic therapy as per medical team - Will continue to monitor patient clinical course
[2016-10-01 13:30] LABS: BASO % 0.9 % (0.0-2.0); EOS # 0.2 K/uL (0.0-0.7); EOS % 2.8 % (0.0-4.0); LYMPH # 0.7 K/uL (1.0-4.3); LYMPH % 12.3 % (20.0-40.0); MEAN CELL VOLUME 88.9 fL (81.0-99.0); MEAN CORPUSCULAR HEMOGLOBIN 28.1 pg (27.0-31.0); MEAN CORPUSCULAR HGB CONC 31.6 g/dL (33.0-37.0); MEAN PLATELET VOLUME 10.5 fL (7.2-11.7); MONO # 0.4 K/uL (0.0-0.8); MONO % 7.3 % (0.0-10.0); WHITE BLOOD COUNT 5.5 K/uL (4.8-10.8)
[2016-10-01] MEDS ORDERED: Iohexol 240 (50 ml) PO ONE ×2 (14:30→17:45)
--- NOTE | 2016-10-01 14:39 | CT ---
PROCEDURE: CT Chest without contrast HISTORY: SOB COMPARISON: None. TECHNIQUE: Contiguous axial images were obtained through the chest without intravenous contrast enhancement. Sagittal and coronal reconstructions were performed. Radiation dose (DLP): 882.51 mGy-cm. This CT exam was performed using one or more of the following dose reduction techniques: Automated exposure control, adjustment of the mA and/or kV according to patient size, and/or use of iterative reconstruction technique. FINDINGS: LUNGS: Mild emphysematous change in the lung apices. Bilateral lower lobe compressive atelectasis secondary to pleural effusions. No lito pulmonary infiltrate. MEDIASTINUM: Unremarkable thoracic aorta. No aneurysm. Mild cardiomegaly. Small pericardial effusion. Coronary arterial calcification. Main pulmonary artery unremarkable. No vascular congestion. Solitary enlarged right paratracheal node, 1.3 cm short axis. Uncertain significance. No other enlarged mediastinal or hilar nodes appreciated. PLEURA: Moderate bilateral pleural effusion. BONES: No fracture. No destructive lesion. UPPER ABDOMEN: Grossly unremarkable. OTHER FINDINGS: None. IMPRESSION: Moderate bilateral pleural effusion. Bilateral lower lobe compressive atelectasis. Small pericardial effusion with mild cardiomegaly. Coronary arterial calcification. No lito pulmonary infiltrate. Minimal bilateral apical emphysematous change.
[2016-10-01] MEDS ORDERED: Dextrose 50% SYRINGE Inj (50 ml) IV STA (16:06)
[2016-10-01] MEDS ORDERED: Dextrose 50% SYRINGE Inj (50 ml) ONE (16:09)
--- NOTE | 2016-10-01 18:27 | CON ---
DATE: 10/01/2016 REASON FOR CONSULTATION: Abnormal EKG with evidence of inferolateral ischemia. HISTORY OF PRESENT ILLNESS: The patient is a 61-year-old female, a alf resident wh o has a history of hypertension, diabetes mellitus, history of bilateral above-knee amputation, histo ry of chronic renal insufficiency, was brought in because of GI bleeding. A 12-lead EKG was consiste nt with inferolateral ischemia. The patient was in sinus rhythm. The patient denies chest pain at t his time. The patient was evaluated by me in June of this year when she was admitted because of unresponsiveness when she was waiting ENT specialist's office. The patient at that time had borderli ne troponin elevation. The patient had an echocardiographic study in March of last year which rev ealed normal ejection fraction. SOCIAL HISTORY: The patient is nonsmoker, nondrinker. MEDICATIONS: The patient on hydralazine 75 mg t.i.d., Zithromax 500 mg daily, cefepime 0.5 mg daily, Coreg 12.5 mg once a day, Crestor 10 mg at bedtime, aspirin 81 mg daily, Lasix 40 mg p.o. twice a da y, gabapentin 100 mg t.i.d., PhosLo 1 tablet once a day, Protonix 40 mg p.o. once a day, half-normal saline at 60 mL/hour. REVIEW OF SYSTEMS: No fever or chills. No reported hypertension. No reported ventricular arrhythmi a. PHYSICAL EXAMINATION: GENERAL: The patient is a middle-aged female who does not appear to be in acute distress. VITAL SIGNS: Blood pressure 159/53, heart rate 71, temperature 97.6, respiration 20. HEENT: Pale conjunctivae. CHEST: Clear. HEART: S1, S2 regular. ABDOMEN: Soft. EXTREMITIES: Bilateral below-knee amputation. LABORATORY DATA: CBC: WBC 5.5; hemoglobin 6.9; hematocrit 22.0; platelet count 148,000. SMA-7: So dium 129, potassium 4.4, chloride 92, CO2 of 32, glucose 136, BUN 66, creatinine 3.9. Two sets of tr oponins were negative. EKG revealed sinus rhythm, inferolateral ischemic ST-T wave changes. Repeat PTT 35, INR is 1.1. Chest x-ray revealed significant cardiomegaly with mild CHF. ASSESSMENT: 1. Consider diastolic heart failure. 2. Anemia, most likely related to underlying gastrointestinal bleeding. 3. Chronic renal insufficiency. 4. Inferolateral ischemic EKG changes. Myocardial infarction is ruled out. 5. Peripheral vascular disease, status post bilateral below-knee amputation. RECOMMENDATIONS: Continue hydralazine 75 mg t.i.d. Continue IV Zithromax and IV cefepime. Continue Crestor 10 mg once a day, aspirin 81 mg once a day. Change Lasix to 40 mg intravenously daily. I w ill follow echocardiographic study performed today. Jaquan Solano MD cc: [id number] TT: 10/01/2016 18:26:27 Confirmation # [id number] Dictation # [id number] dn
--- NOTE | 2016-10-01 19:07 | CP.PCM.PN ---
Subjective - Date & Time of Evaluation Date of Evaluation: 10/01/16 Time of Evaluation: 19:06 - Subjective Subjective: pt seen and examined, follow up consult is dictated #[id number] Objective - Vital Signs/Intake and Output Vital Signs (last 24 hours): Temp Pulse Resp BP Pulse Ox 97.9 F 77 18 156/59 H 100 10/01/16 18:06 10/01/16 18:06 10/01/16 18:06 10/01/16 18:06 10/01/16 15:41 Intake and Output: 10/01/16 10/02/16 18:59 06:59 Intake Total 1535 Balance 1535 - Medications Medications: Current Medications Acetaminophen (Tylenol 325mg Tab) 650 mg PO Q6H PRN PRN Reason: Fever >100.4 F Al Hydrox/Mg Hydrox/Simethicone (Maalox Plus 30 Ml) 30 ml PO Q6 PRN PRN Reason: Heartburn Albuterol/Ipratropium (Duoneb 3 Mg/0.5 Mg (3 Ml) Ud) 3 ml IH RQ4 [facility] Last Admin: 10/01/16 15:54 Dose: 3 ml Aspirin (Ecotrin) 81 mg PO DAILY [facility] Brimonidine Tartrate (Alphagan 0.2% Opht) 0 ml OU TID [facility] Last Admin: 10/01/16 17:55 Dose: 1 drop Calcium Acetate (Phoslo) 667 mg PO AC [facility] Last Admin: 10/01/16 17:26 Dose: Not Given Carvedilol (Coreg) 12.5 mg PO BID [facility] Last Admin: 10/01/16 10:37 Dose: 12.5 mg Dorzolamide HCl (Trusopt) 1 ml OU BID [facility] Last Admin: 10/01/16 17:56 Dose: 1 drop Epoetin Ramin (Procrit) 10,[address] MWF [facility] Stop: 10/06/16 09:01 Last Admin: 10/01/16 08:58 Dose: 10,000 unit Furosemide (Lasix) 40 mg IVP DAILY [facility] Gabapentin (Neurontin) 100 mg PO TID [facility] Last Admin: 10/01/16 17:55 Dose: 100 mg Hydralazine HCl (Apresoline) 75 mg PO TID [facility] Last Admin: 10/01/16 14:55 Dose: Not Given Azithromycin 500 mg/ Sodium (Chloride) 250 mls @ 250 mls/hr IVPB DAILY [facility] Last Admin: 10/01/16 11:00 Dose: 250 mls/hr Sodium Chloride (Sodium Chloride 0.45%) 1,000 mls @ 60 mls/hr IV .[id number] [facility] Last Admin: 10/01/16 03:34 Dose: 60 mls/hr Cefepime HCl 0.5 gm/ Dextrose 50 mls @ 100 mls/hr IVPB DAILY [facility] Insulin Aspart (Novolog Mix 70/30 (70/30 Units/Ml)) 15 units SC ACD [facility] Last Admin: 10/01/16 17:54 Dose: Not Given Insulin Aspart (Novolog Mix 70/30 (70/30 Units/Ml)) 20 units SC ACB [facility] Last Admin: 10/01/16 08:53 Dose: 20 units Insulin Human Regular (Novolin R) 0 unit SC ACHS [facility] PRN Reason: Protocol Last Admin: 10/01/16 17:55 Dose: Not Given Lorazepam (Ativan) 1 mg PO TID PRN PRN Reason: Anxiety Pantoprazole Sodium (Protonix Ec Tab) 40 mg PO 0630 [facility] Last Admin: 10/01/16 06:27 Dose: 40 mg Polyethylene Glycol (Miralax) 17 gm PO DAILY [facility] Last Admin: 10/01/16 10:41 Dose: Not Given Rosuvastatin Calcium (Crestor) 10 mg PO HS [facility] Last Admin: 09/30/16 22:54 Dose: 10 mg - Labs Labs: 10/01/16 13:20 10/01/16 06:25 PT 11.8 SECONDS (9.7-12.2) 10/01/16 06:25 INR 1.1 10/01/16 06:25 APTT 35 SECONDS (21-34) H 10/01/16 06:25
--- NOTE | 2016-10-01 19:53 | CP.PCM.PN ---
<Erickson Adams - Last Filed: 10/01/16 19:51> Subjective - Date & Time of Evaluation Date of Evaluation: 10/01/16 Time of Evaluation: 09:00 - Subjective Subjective: Dr. Adams PGY 1 Hospitalist Note Patient seen and examined at bedside. She notes some leg cramping due to the foot of the bed being elevated. She reports her breathing has improved and denies any chest pain, SOB fever, chills, nausea, or vomiting, She has some mild abdominal tenderness but says she has not had a BM yet today. Per nursing, no adverse events over night. Objective - Vital Signs/Intake and Output Vital Signs (last 24 hours): Temp Pulse Resp BP Pulse Ox 98 F 78 20 160/61 H 100 10/01/16 18:51 10/01/16 18:51 10/01/16 18:51 10/01/16 18:51 10/01/16 15:41 Intake and Output: 10/01/16 10/02/16 18:59 06:59 Intake Total 1535 Balance 1535 - Medications Medications: Current Medications Acetaminophen (Tylenol 325mg Tab) 650 mg PO Q6H PRN PRN Reason: Fever >100.4 F Al Hydrox/Mg Hydrox/Simethicone (Maalox Plus 30 Ml) 30 ml PO Q6 PRN PRN Reason: Heartburn Albuterol/Ipratropium (Duoneb 3 Mg/0.5 Mg (3 Ml) Ud) 3 ml IH RQ4 [facility] Last Admin: 10/01/16 15:54 Dose: 3 ml Aspirin (Ecotrin) 81 mg PO DAILY [facility] Brimonidine Tartrate (Alphagan 0.2% Opht) 0 ml OU TID [facility] Last Admin: 10/01/16 17:55 Dose: 1 drop Calcium Acetate (Phoslo) 667 mg PO AC [facility] Last Admin: 10/01/16 17:26 Dose: Not Given Carvedilol (Coreg) 12.5 mg PO BID [facility] Last Admin: 10/01/16 10:37 Dose: 12.5 mg Dorzolamide HCl (Trusopt) 1 ml OU BID [facility] Last Admin: 10/01/16 17:56 Dose: 1 drop Epoetin Armin (Procrit) 10,000 unit SC F [facility] Stop: 10/06/16 09:01 Last Admin: 10/01/16 08:58 Dose: 10,000 unit Furosemide (Lasix) 40 mg IVP DAILY [facility] Gabapentin (Neurontin) 100 mg PO TID [facility] Last Admin: 10/01/16 17:55 Dose: 100 mg Hydralazine HCl (Apresoline) 75 mg PO TID [facility] Last Admin: 10/01/16 14:55 Dose: Not Given Azithromycin 500 mg/ Sodium (Chloride) 250 mls @ 250 mls/hr IVPB DAILY [facility] Last Admin: 10/01/16 11:00 Dose: 250 mls/hr Sodium Chloride (Sodium Chloride 0.45%) 1,000 mls @ 60 mls/hr IV .[id number] [facility] Last Admin: 10/01/16 03:34 Dose: 60 mls/hr Cefepime HCl 0.5 gm/ Dextrose 50 mls @ 100 mls/hr IVPB DAILY [facility] Insulin Aspart (Novolog Mix 70/30 (70/30 Units/Ml)) 15 units SC ACD [facility] Last Admin: 10/01/16 17:54 Dose: Not Given Insulin Aspart (Novolog Mix 70/30 (70/30 Units/Ml)) 20 units SC ACB [facility] Last Admin: 10/01/16 08:53 Dose: 20 units Insulin Human Regular (Novolin R) 0 unit SC ACHS [facility] PRN Reason: Protocol Last Admin: 10/01/16 17:55 Dose: Not Given Lorazepam (Ativan) 1 mg PO TID PRN PRN Reason: Anxiety Pantoprazole Sodium (Protonix Ec Tab) 40 mg PO 0630 [facility] Last Admin: 10/01/16 06:27 Dose: 40 mg Polyethylene Glycol (Miralax) 17 gm PO DAILY [facility] Last Admin: 10/01/16 10:41 Dose: Not Given Rosuvastatin Calcium (Crestor) 10 mg PO HS [facility] Last Admin: 09/30/16 22:54 Dose: 10 mg - Labs Labs: 10/01/16 13:20 10/01/16 06:25 PT 11.8 SECONDS (9.7-12.2) 10/01/16 06:25 INR 1.1 10/01/16 06:25 APTT 35 SECONDS (21-34) H 10/01/16 06:25 - Constitutional Appears: Non-toxic, No Acute Distress - Head Exam Head Exam: ATRAUMATIC, NORMOCEPHALIC - Eye Exam Eye Exam: EOMI, Normal appearance, PERRL Pupil Exam: NORMAL ACCOMODATION, PERRL - ENT Exam ENT Exam: Mucous Membranes Moist, Normal Oropharynx - Neck Exam Neck Exam: Normal Inspection - Respiratory Exam Respiratory Exam: Clear to Ausculation Bilateral, NORMAL BREATHING PATTERN. absent: Rales, Rhonchi, Wheezes - Cardiovascular Exam Cardiovascular Exam: REGULAR RHYTHM, +S1, +S2. absent: Gallop, Rubs, Murmur - GI/Abdominal Exam GI & Abdominal Exam: Soft, Tenderness (left lower quadrant), Normal Bowel Sounds - Extremities Exam Extremities Exam: absent: Normal Inspection (bilateral lower extrememity amputation), Tenderness - Neurological Exam Neurological Exam: Alert, Awake, CN II-XII Intact, Oriented x3 - Psychiatric Exam Psychiatric exam: Normal Affect, Normal Mood - Skin Skin Exam: Dry, Intact, Normal Color, Warm Assessment and Plan - Assessment and Plan (Free Text) Plan: Anemia * Nephrology consult, Dr. Saeed, help appreciated * GI consulted, Dr. Reyna, help appreicated * FOBT positive * Patient on telemetry * Initial hgb 6.8, repeat 7.5 * Transfused only 1 unit, will transfuse 2 more as repeat hgb dropped to 6.9 * Iron studies: Iron 51, TIBC 172, 30% sat, Ferritin 165/ * F/U Protein electrophoresis studies * F/u Immunofixation * f/u Beta-2 microglobulins * Procrit 10,000 unit SC MWF * NS 60 cc/hr Dyspnea * history of asthma and COPD * CXR: mild pulmonary congestion. small left pleural effusion vs infiltrate/ atelectasis (see full report) * Duonebs * Cefepime 1 gm IVPB Q12H * Azithromycin 500 mg IVPB daily * Lasix 40 mg PO BID DM * ISS * Accuchecks * Insulin aspart 20 units SC ACB/15 units SC ACD HTN * Hydralazine 75 mg PO TID, held due to hypotension HLD * Crestor 10 mg PO HS CKD * Nephrology consult, Dr. Saeed, help appreciated * NS 60 cc/hr * Bun/Cr 766/3.9 Prophylactic Measures * chemical anticoagulation contraindicated to FOBT+ and anemia * Miralax 17 gm PO daily * Protonix 40 mg PO daily * Gabapentin 100 mg PO TID * Maalox 30 ml PO Q6H PRN * Tylenol 650 mg PO Q6H PRN * HHD with mod carb, renal Assesment and plan discussed with attending physician. <Ondina Esqueda V - Last Filed: 01/01/17 00:16> Objective - Vital Signs/Intake and Output Vital Signs (last 24 hours): Temp Pulse Resp BP Pulse Ox 98.9 F 92 H 20 121/46 L 100 10/07/16 16:00 10/07/16 16:00 10/07/16 16:00 10/07/16 16:00 10/07/16 16:00 - Labs Labs: 10/07/16 08:32 10/07/16 08:32 PT 12.1 SECONDS (9.7-12.2) 10/02/16 11:22 INR 1.1 10/02/16 11:22 APTT 35 SECONDS (21-34) H 10/01/16 06:25 Attending/Attestation - Attestation I have personally seen and examined this patient.: Yes I have fully participated in the care of the patient.: Yes I have reviewed all pertinent clinical information, including history, physical exam and plan: Yes
[2016-10-02] MEDS: Dextrose 5%/0.9% NS 1,000 ML IV SCH ×2 (02:35→20:47)
[2016-10-02 03:00] LABS: TOTAL PROTEIN, SERUM 5.8 g/dL (6.1-8.1)
[2016-10-02] MEDS: Albuterol-Ipratrop 3 mg / 0.5 (3 ml) UD IH SCH ×6 (03:15→23:32)
[2016-10-02] MEDS: Pantoprazole 40 mg EC Tab PO SCH (05:49)
--- NOTE | 2016-10-02 06:20 | CARD ---
APPROVED REPORT EXAM: Two-dimensional and M-mode echocardiogram with Doppler and color Doppler. Other Information Quality : GoodRhythm : NSR INDICATION Congestive Heart Failure ckd RISK FACTORS Hypertension Obesity Hyperlipidemia Diabetes M-Mode DIMENSIONS RVDd2.65 (2.1-3.2cm)Left Atrium (MM)3.64 (2.5-4.0cm) IVSd1.41 (0.7-1.1cm)Aortic Root2.91 (2.2-3.7cm) LVDd4.82 (4.0-5.6cm)Aortic Cusp Exc.2.00 (1.5-2.0cm) PWd1.19 (0.7-1.1cm)FS (%) 38 % LVDs2.99 (2.0-3.8cm)LVEF (%)68 (>50%) Mitral Valve MV E Goyoyyym383.2cm/sMV A Eilpcnxb54.8cm/sE/A ratio1.2 TDI E/Lateral E'0.0E/Medial E'0.0 Tricuspid Valve TR Peak Hyehalpt557th/sTR Peak Gr.[id number] LEFT VENTRICLE The left ventricle is normal size. There is normal left ventricular wall thickness. Left ventricle systolic function is normal. The Ejection Fraction is 65-70%. There is normal LV segmental wall motion. The left ventricular diastolic function is normal. RIGHT VENTRICLE The right ventricle is normal size. There is normal right ventricular wall thickness. The right ventricular systolic function is normal. ATRIA The left atrium size is normal. The right atrium size is normal. The interatrial septum is intact with no evidence for an atrial septal defect. AORTIC VALVE The aortic valve is normal in structure. No aortic regurgitation is present. There is no aortic valvular stenosis. There is no aortic valvular vegetation. MITRAL VALVE The mitral valve is normal in structure. There is no evidence of mitral valve prolapse. There is no mitral valve stenosis. Mitral regurgitation is mild. TRICUSPID VALVE The tricuspid valve is normal in structure. There is mild tricuspid regurgitation. Right ventricular systolic pressure is estimated at 30-40 mmHg. There is mild pulmonary hypertension. PULMONIC VALVE The pulmonic valve is not well visualized. There is mild pulmonic valvular regurgitation. GREAT VESSELS The aortic root is normal in size. PERICARDIAL EFFUSION There is no significant pericardial effusion. <Conclusion> Left ventricle systolic function is normal. The Ejection Fraction is 65-70%. No aortic regurgitation is present. Mitral regurgitation is mild. There is mild tricuspid regurgitation. There is mild pulmonary hypertension. There is mild pulmonic valvular regurgitation.
--- NOTE | 2016-10-02 07:49 | CARD ---
APPROVED REPORT EKG Measurement Heart [id number] IN [id number] <Conclusion> Normal sinus rhythm T wave abnormality, consider inferolateral ischemia Abnormal ECG
--- NOTE | 2016-10-02 08:18 | PN ---
DATE: 10/01/2016 REQUESTED BY: Dr. Remi Blackwood. REASON FOR RENAL FOLLOWUP: Increased BUN and creatinine, further evaluation. HISTORY OF PRESENT ILLNESS: The patient is a 61-year-old elderly obese female with a past medical history significant for COPD, asthma on oxygen and bilateral AKA, CKD, hypertension, hyperlipidemia, diabetes, anemia, history of gastrointestinal bleed in the past. Status post EGD on 06/30/2016, was found to have nonbleeding gastric erosions Now the patient was admitted with low H and H and increased BUN and creatinine. The patient is not in acute distress. Denies any headache. Denies any chest pain, palpitation. No nausea, vomiting. PHYSICAL EXAMINATION: VITAL SIGNS: Blood pressure 156/59, pulse 77, respiration 18, temperature 97.9. Height 5 feet, weight is 207 pounds, BMI 40.4. GENERAL: The patient is a 61-year-old elderly female with bilateral above-knee amputation. HEENT: Pupils normal, reactive to light and accommodation. Conjunctivae slightly pale. Sclerae anicteric. Tongue is moist. NECK: Trachea is midline. LUNGS: Symmetric on both sides. Bilateral breath sounds present. No crackles. CARDIOVASCULAR: Brilliant in the fifth intercostal space midclavicular line. S1 and S2 audible. No murmur, no gallop. ABDOMEN: Normal in appearance, soft, tympanic. No guarding, no rigidity. No hepatosplenomegaly. CENTRAL NERVOUS SYSTEM: The patient is alert, awake, oriented x 2-3. Sensory and motor system is grossly within normal limits. EXTREMITIES: Bilateral above-knee amputation. CURRENT MEDICATIONS: Include as follows: Alphagan eyedrops, hydralazine 75 mg p.o. t.i.d., 81.1 mg p.o. t.i.d., azithromycin 500 mg daily, cefepime 500 mg daily, Coreg 12.5 mg p.o. b.i.d., Crestor 10 mg at bedtime, DuoNeb inhaler, Ecotrin 81 mg daily, Lasix 40 mg IV daily, Maalox 30 mL q. 6 hours p.r.n., MiraLax 17 grams p.o. daily, Neurontin 100 mg p.o. t.i.d., insulin Novolin R for sliding scale, NovoLog 70/30 20 units subQ before breakfast, 15 units subQ before dinner, PhosLo 667 mg p.o. before meals, Procrit 10,000 units 3 times a week, Thursday, Thursday, Thursday, Protonix 40 mg p.o., IV fluids half normal saline at 60 mL per hour, Tylenol 650 p.o. q. 6 hours p.r.n.,. LABORATORY DATA: Include as follows: As of 10/01/2016. WBC 5.5, hemoglobin 6.9, hematocrit is 22, platelets 148. Chem 7 this morning, sodium 129, potassium 4.4, chloride 92, CO2 32, BUN 66, creatinine 3.9, glucose 136, calcium 8.2, iron is 51, TIBC 172, saturation 30, ferritin 165, total bilirubin 0.1, AST 30, ALT 24, alkaline phosphatase is 54, troponin 0.06, total protein 6.1, albumin is 2.8, globulin 3.2, TSH is 2.45, cholesterol 101, LDL less than 30, HDL 42. Thyroxine is 8.9. Urine culture is positive for gram-negative rods. SUMMARY: The patient is a 61-year-old obese female with hypertension, diabetes, chronic obstructive pulmonary disease, asthma, chronic kidney disease , anemia, increased BUN and creatinine and low H and H. IMPRESSION AND PLAN: 1. 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 2. Anemia, most likely secondary to chronic kidney disease and rule out gastrointestinal bleed and rule out multiple myeloma. 3. Hypertension. 4. Diabetes. Continue insulin, NovoLog 70/30 and also continue blood pressure medications, hydralazine and Coreg, and titrate hydralazine as needed and follow up with GI for further management. The patient is being transfused 1 unit of packed RBC this evening. Will follow with you. Thank you for allowing me to participate in your patient's care. Will check a 24-hour urine protein and creatinine clearance and also will check urine immunofixation. Also, will check serum kappa and lambda light chains. Asha Saeed MD cc: [id number] TT: 10/02/2016 00:29:24 Confirmation # [id number] Dictation # [id number] franny SAMS
[2016-10-02] MEDS: (Novolog Mix 70/30) Insulin Aspart/Insulin Aspar 100 units/ml SC SCH ×2 (08:53→18:36)
[2016-10-02] MEDS: (Novolin R) Insulin Human Regular 100 units/ml vial SC SCH ×4 (08:53→22:00)
--- NOTE | 2016-10-02 09:37 | CP.PCM.PN ---
<SoniaLizeth - Last Filed: 10/02/16 09:35> Subjective - Date & Time of Evaluation Date of Evaluation: 10/02/16 Time of Evaluation: 09:35 - Subjective Subjective: Gastroenterology Fellow/PGY4 Progress Note Patient did not sleep well due to multiple entrances to patient room with blood transfusion. Notes continued abdominal discomfort. No bowel movement. A 12- point review of systems negative except for as above. Objective - Vital Signs/Intake and Output Vital Signs (last 24 hours): Temp Pulse Resp BP Pulse Ox 98.0 F 89 20 152/61 H 100 10/02/16 07:10 10/02/16 07:10 10/02/16 07:10 10/02/16 07:10 10/02/16 07:10 Intake and Output: 10/02/16 10/02/16 06:59 18:59 Intake Total 470 375 Balance 470 375 - Medications Medications: Current Medications Acetaminophen (Tylenol 325mg Tab) 650 mg PO Q6H PRN PRN Reason: Fever >100.4 F Al Hydrox/Mg Hydrox/Simethicone (Maalox Plus 30 Ml) 30 ml PO Q6 PRN PRN Reason: Heartburn Albuterol/Ipratropium (Duoneb 3 Mg/0.5 Mg (3 Ml) Ud) 3 ml IH RQ4 [facility] Last Admin: 10/02/16 07:26 Dose: 3 ml Aspirin (Ecotrin) 81 mg PO DAILY [facility] Brimonidine Tartrate (Alphagan 0.2% Opht) 0 ml OU TID [facility] Last Admin: 10/01/16 17:55 Dose: 1 drop Calcium Acetate (Phoslo) 667 mg PO AC [facility] Last Admin: 10/02/16 08:54 Dose: Not Given Carvedilol (Coreg) 12.5 mg PO BID [facility] Last Admin: 10/01/16 10:37 Dose: 12.5 mg Dorzolamide HCl (Trusopt) 1 ml OU BID [facility] Last Admin: 10/01/16 17:56 Dose: 1 drop Epoetin Armin (Procrit) 10,000 unit SC MWF [facility] Stop: 10/06/16 09:01 Last Admin: 10/01/16 08:58 Dose: 10,000 unit Furosemide (Lasix) 40 mg IVP DAILY [facility] Gabapentin (Neurontin) 100 mg PO TID [facility] Last Admin: 10/01/16 17:55 Dose: 100 mg Hydralazine HCl (Apresoline) 75 mg PO TID [facility] Last Admin: 10/01/16 14:55 Dose: Not Given Azithromycin 500 mg/ Sodium (Chloride) 250 mls @ 250 mls/hr IVPB DAILY [facility] Last Admin: 10/01/16 11:00 Dose: 250 mls/hr Cefepime HCl 0.5 gm/ Dextrose 50 mls @ 100 mls/hr IVPB DAILY [facility] Dextrose/Sodium Chloride (Dextrose 5%/0.9% Ns 1000 Ml) 1,000 mls @ 60 mls/hr IV .[id number] [facility] Last Admin: 10/02/16 02:35 Dose: 60 mls/hr Insulin Aspart (Novolog Mix 70/30 (70/30 Units/Ml)) 15 units SC ACD [facility] Last Admin: 10/01/16 17:54 Dose: Not Given Insulin Aspart (Novolog Mix 70/30 (70/30 Units/Ml)) 20 units SC ACB [facility] Last Admin: 10/02/16 08:53 Dose: Not Given Insulin Human Regular (Novolin R) 0 unit SC ACHS [facility] PRN Reason: Protocol Last Admin: 10/02/16 08:53 Dose: Not Given Lorazepam (Ativan) 1 mg PO TID PRN PRN Reason: Anxiety Pantoprazole Sodium (Protonix Ec Tab) 40 mg PO 0630 [facility] Last Admin: 10/02/16 05:49 Dose: 40 mg Polyethylene Glycol (Miralax) 17 gm PO DAILY [facility] Last Admin: 10/01/16 10:41 Dose: Not Given Rosuvastatin Calcium (Crestor) 10 mg PO HS [facility] Last Admin: 10/01/16 23:10 Dose: 10 mg - Labs Labs: 10/01/16 13:20 10/01/16 06:25 PT 11.8 SECONDS (9.7-12.2) 10/01/16 06:25 INR 1.1 10/01/16 06:25 APTT 35 SECONDS (21-34) H 10/01/16 06:25 - Constitutional Appears: Non-toxic, No Acute Distress - Head Exam Head Exam: ATRAUMATIC, NORMOCEPHALIC - Eye Exam Eye Exam: EOMI, PERRL Pupil Exam: PERRL. absent: Miosis, Mydriatic - ENT Exam ENT Exam: Mucous Membranes Moist, Normal Oropharynx - Neck Exam Neck Exam: Full ROM, Normal Inspection - Respiratory Exam Respiratory Exam: Clear to Ausculation Bilateral. absent: Rales, Rhonchi, Wheezes - Cardiovascular Exam Cardiovascular Exam: RRR, +S1, +S2. absent: Gallop, Rubs - GI/Abdominal Exam GI & Abdominal Exam: Soft, Tenderness, Normal Bowel Sounds. absent: Distended, Firm, Guarding, Rigid, Organomegaly, Rebound - Extremities Exam Additional comments: B/L AKA - Neurological Exam Neurological Exam: Alert, Awake, Oriented x3 - Psychiatric Exam Psychiatric exam: Normal Affect, Normal Mood - Skin Skin Exam: Dry, Intact, Normal Color, Warm Assessment and Plan - Assessment and Plan (Free Text) Assessment: 61 year old female with history of COPD/asthma on oxygen supplementation, Bilateral AKA, CKD, Hypertension, Hyperlipidemia, and normocytic anemia previously requiring blood transfusions, most recently on discharge 07/01/16 presenting from nursing facility with anemia and worsening renal function. Active treatment of abdominal pain, acute on chronic normocytic anemia s/p 3 units pRBCs, and acute renal insufficiency on CKD. Most recent EGD 06/30/16 to evaluate anemia showed nonbleeding gaastric erosions, erythematous duodenopathy , and a moderate-sized hiatal hernia. Patient refused colonoscopy previously scheduled during inpatient stay on 07/01/16. Plan: >no overt signs of GI blood loss >pending CT A/P PO contrast >advance to full liquid diet >supportive care: antiemetics, PPI, pain control >CT chest- moderate B/L pleural effusions >medical team- cefepime, azithromycin, Lasix >medical optimization prior to colonoscopy evaluation >further recommendations based on clinical course <Ervin Mendez - Last Filed: 10/02/16 11:52> Objective - Vital Signs/Intake and Output Vital Signs (last 24 hours): Temp Pulse Resp BP Pulse Ox 98.0 F 89 20 152/60 H 100 10/02/16 07:10 10/02/16 07:10 10/02/16 07:10 10/02/16 10:58 10/02/16 07:10 Intake and Output: 10/02/16 10/02/16 06:59 18:59 Intake Total 470 375 Balance 470 375 - Medications Medications: Current Medications Acetaminophen (Tylenol 325mg Tab) 650 mg PO Q6H PRN PRN Reason: Fever >100.4 F Al Hydrox/Mg Hydrox/Simethicone (Maalox Plus 30 Ml) 30 ml PO Q6 PRN PRN Reason: Heartburn Albuterol/Ipratropium (Duoneb 3 Mg/0.5 Mg (3 Ml) Ud) 3 ml IH RQ4 [facility] Last Admin: 10/02/16 11:01 Dose: 3 ml Aspirin (Ecotrin) 81 mg PO DAILY [facility] Brimonidine Tartrate (Alphagan 0.2% Opht) 0 ml OU TID [facility] Last Admin: 10/02/16 10:43 Dose: 1 drop Calcium Acetate (Phoslo) 667 mg PO AC [facility] Last Admin: 10/02/16 08:54 Dose: Not Given Carvedilol (Coreg) 12.5 mg PO BID [facility] Last Admin: 10/01/16 10:37 Dose: 12.5 mg Dorzolamide HCl (Trusopt) 1 ml OU BID [facility] Last Admin: 10/02/16 10:43 Dose: 1 drop Epoetin Armin (Procrit) 10,000 unit SC MWF [facility] Stop: 10/06/16 09:01 Last Admin: 10/01/16 08:58 Dose: 10,000 unit Furosemide (Lasix) 40 mg IVP DAILY [facility] Last Admin: 10/02/16 10:58 Dose: 40 mg Gabapentin (Neurontin) 100 mg PO TID [facility] Last Admin: 10/02/16 10:42 Dose: 100 mg Hydralazine HCl (Apresoline) 75 mg PO TID [facility] Last Admin: 10/01/16 14:55 Dose: Not Given Azithromycin 500 mg/ Sodium (Chloride) 250 mls @ 250 mls/hr IVPB DAILY [facility] Last Admin: 10/02/16 11:05 Dose: 250 mls/hr Cefepime HCl 0.5 gm/ Dextrose 50 mls @ 100 mls/hr IVPB DAILY [facility] Last Admin: 10/02/16 10:31 Dose: 100 mls/hr Dextrose/Sodium Chloride (Dextrose 5%/0.9% Ns 1000 Ml) 1,000 mls @ 60 mls/hr IV .[id number] [facility] Last Admin: 10/02/16 02:35 Dose: 60 mls/hr Insulin Aspart (Novolog Mix 70/30 (70/30 Units/Ml)) 15 units SC ACD [facility] Last Admin: 10/01/16 17:54 Dose: Not Given Insulin Aspart (Novolog Mix 70/30 (70/30 Units/Ml)) 20 units SC ACB [facility] Last Admin: 10/02/16 08:53 Dose: Not Given Insulin Human Regular (Novolin R) 0 unit SC ACHS [facility] PRN Reason: Protocol Last Admin: 10/02/16 08:53 Dose: Not Given Lorazepam (Ativan) 1 mg PO TID PRN PRN Reason: Anxiety Pantoprazole Sodium (Protonix Ec Tab) 40 mg PO 0630 [facility] Last Admin: 10/02/16 05:49 Dose: 40 mg Polyethylene Glycol (Miralax) 17 gm PO DAILY [facility] Last Admin: 10/02/16 10:44 Dose: 17 gm Rosuvastatin Calcium (Crestor) 10 mg PO HS [facility] Last Admin: 10/01/16 23:10 Dose: 10 mg - Labs Labs: 10/02/16 11:22 10/01/16 06:25 PT 11.8 SECONDS (9.7-12.2) 10/01/16 06:25 INR 1.1 10/01/16 06:25 APTT 35 SECONDS (21-34) H 10/01/16 06:25 Attending/Attestation - Attestation I have personally seen and examined this patient.: Yes I have fully participated in the care of the patient.: Yes I have reviewed all pertinent clinical information, including history, physical exam and plan: Yes Notes (Text): 10/02/16 11:47 I have seen and examined patient with GI fellow. No acute events overnight. She endorses persistent right sided abdominal pain, but otherwise denies nausea , vomiting, diarrhea, fever/chills. She is hungry and asking for her diet to be advanced. Review of vitals shows elevated BP. Obesity COPD / pneumonia CKD PVD s/p bilateral lower extremity amputations HTN Anemia, chronic disease CT imaging reviewed by me showing no acute GI pathology - Liquid diet as tolerated - Continue to monitor H/H s/p PRBC transfusion - Continue with antibiotic therapy as per medical team - Renal workup in progress with 24 hr urine collection given progressive deterioration in renal function - Patient would benefit from colonoscopy evaluation, however can be performed electively as outpatient following resolution of acute symptoms
--- NOTE | 2016-10-02 10:40 | CT ---
PROCEDURE: CT Abdomen and Pelvis without IV contrast. HISTORY: Abdominal pain, anemia COMPARISON: Report from CT abdomen and pelvis without IV contrast performed 12/17/15 (images were not available for review) TECHNIQUE: Contiguous axial images of the abdomen and pelvis. Oral contrast was administered. No IV contrast given. Coronal and Sagittal reformats generated and reviewed. Radiation dose: Total exam DLP = 1169.23 mGy-cm. This CT exam was performed using one or more of the following dose reduction techniques: Automated exposure control, adjustment of the mA and/or kV according to patient size, and/or use of iterative reconstruction technique. FINDINGS: There is limited evaluation of the solid organs without the administration of IV contrast. LOWER THORAX: Partially imaged moderate pericardial effusion. Coronary artery and atherosclerotic calcifications. Moderate bilateral pleural effusions and bilateral compressive consolidations. LIVER: Tiny right hepatic lobe calcification, nonspecific. Otherwise grossly unremarkable unenhanced appearance. GALLBLADDER AND BILE DUCTS: Unremarkable unenhanced appearance. PANCREAS: Fatty atrophy of the pancreas. SPLEEN: Unremarkable unenhanced appearance. ADRENALS: Unremarkable unenhanced appearance. KIDNEYS AND URETERS: No hydronephrosis or obstructing renal calculus. BLADDER: Decompressed urinary bladder containing air. Allred catheter present. REPRODUCTIVE: Uterus is present. APPENDIX: The appendix appears within normal limits of caliber. No secondary signs of acute appendicitis. BOWEL: The stomach is nondistended. The bowel loops appear within normal limits of caliber without evidence of intestinal obstruction. PERITONEUM: No significant free fluid. No definite free air. LYMPH NODES: No bulky lymphadenopathy identified. VASCULATURE: Dense atherosclerotic calcifications of the aorta and branches. No aortic aneurysm. BONES: Fuse osseous demineralization limits evaluation for acute fracture lines. Multilevel degenerative changes. OTHER FINDINGS: 11 mm fat containing umbilical hernia. IMPRESSION: Partially imaged moderate pericardial effusion. Moderate bilateral pleural effusions and bilateral compressive consolidations. Decompressed urinary bladder containing air ; this may be secondary to instrumentation with recent placement of Allred catheter however recommend correlation with urinalysis. Cystitis cannot be excluded. Additional findings as above.
[2016-10-02] MEDS: Brimonidine 0.2% Opth Sol (5ml) OU SCH ×3 (10:43→18:43)
[2016-10-02] MEDS: Dorzolamide 2% Opht Sol 10ml OU SCH ×2 (10:43→18:42)
[2016-10-02] MEDS: POLYETHYLENE GLYCOL 3350 17 GM/Dose PACKET PO SCH (10:44)
[2016-10-02] MEDS: Azithromycin 500 MG in Sodium Chloride 0.9% 250 ML IVPB SCH (11:05)
[2016-10-02 11:28] LABS: BASO % 0.4 % (0.0-2.0); EOS # 0.2 K/uL (0.0-0.7); EOS % 3.1 % (0.0-4.0); HEMATOCRIT 31.3 % (34.0-47.0); LYMPH # 0.8 K/uL (1.0-4.3); LYMPH % 11.3 % (20.0-40.0); MEAN CELL VOLUME 87.8 fL (81.0-99.0); MEAN CORPUSCULAR HEMOGLOBIN 28.9 pg (27.0-31.0); MEAN CORPUSCULAR HGB CONC 32.9 g/dL (33.0-37.0); MEAN PLATELET VOLUME 10.6 fL (7.2-11.7); MONO # 0.5 K/uL (0.0-0.8); MONO % 7.4 % (0.0-10.0); RED CELL DISTRIBUTION WIDTH 15.3 % (11.5-14.5); WHITE BLOOD COUNT 7.2 K/uL (4.8-10.8)
[2016-10-02 11:42] LABS: INR 1.1
[2016-10-02 11:45] LABS: POTASSIUM 4.1 mmol/L (3.6-5.2)
[2016-10-02 11:48] LABS: BILIRUBIN,TOTAL 0.8 mg/dL (0.2-1.3); CALCIUM 7.9 mg/dl (8.6-10.4); PHOSPHOROUS 5.4 mg/dL (2.5-4.5); TOTAL PROTEIN 6.5 g/dL (6.3-8.3)
[2016-10-02 11:50] LABS: MAGNESIUM 2.9 mg/dL (1.6-2.3)
--- NOTE | 2016-10-02 14:26 | PN ---
DATE: 10/02/2016 SUBJECTIVE: The patient denies chest pain. She he is experiencing abdominal discomfort. PHYSICAL EXAMINATION: VITAL SIGNS: Blood pressure 152/60, heart rate 93, temperature 98, respirations 20. HEENT: Pale conjunctivae. CHEST: Clear. HEART: S1, S2 regular. EXTREMITIES: Reveal bilateral above-knee amputation. LABORATORIES: Today's BUN and creatinine are 63 and 3.4, potassium is within normal limits at 4.1 an d glucose is within normal limit at 84. Calcium is within normal 7.9. Phosphorus is above normal at 5.4. Today's hemoglobin and hematocrit 10.3 and 31.3, white count and platelet count are within nor mal limits. Abdomen and pelvis CT scan: Partially imaged moderate pericardial effusion. Moderate b ilateral pleural effusion and bilateral compression consolidation. Decompression of the bladder cont aining air. This may be secondary to instrumentation with recent placement of Allred catheter. [facility] er, recommended correlation with the urinalysis. Cystitis cannot be excluded. ASSESSMENT: 1. Rule out diastolic heart failure. 2. Anemia, status post packed RBC transfusion. 3. Worsening chronic renal insufficiency. 4. Inferolateral ischemic ST-T wave changes by EKG. 5. Peripheral vascular disease, status post bilateral above-knee amputation. 6. Pericardial effusion noted on the recent abdomen CT scan. My review of the echocardiograph study that was performed yesterday revealed no significant pericardial effusion. The ejection fraction is within normal limits at 65-70%. RECOMMENDATIONS: Continue current hydralazine 75 mg t.i.d. Continue IV Zithromax 500 mg daily, IV c efepime at 0.5 gram daily, Coreg at 12.5 mg twice a day, Crestor at 10 mg once a day, aspirin 81 mg o nce a day, Lasix 40 mg intravenous once a day. Jaquan Solano MD cc: [id number] TT: 10/02/2016 14:25:40 Confirmation # [id number] Dictation # [id number] tn
--- NOTE | 2016-10-02 17:21 | CP.PCM.PN ---
Subjective - Date & Time of Evaluation Date of Evaluation: 10/02/16 Time of Evaluation: 17:21 - Subjective Subjective: pt seen and examined, follow up consult is dictated #[id number] Objective - Vital Signs/Intake and Output Vital Signs (last 24 hours): Temp Pulse Resp BP Pulse Ox 98.1 F 82 20 152/60 H 100 10/02/16 15:49 10/02/16 15:49 10/02/16 15:49 10/02/16 10:58 10/02/16 15:49 Intake and Output: 10/02/16 10/02/16 06:59 18:59 Intake Total 470 1235 Output Total 1000 Balance 470 235 - Medications Medications: Current Medications Acetaminophen (Tylenol 325mg Tab) 650 mg PO Q6H PRN PRN Reason: Fever >100.4 F Al Hydrox/Mg Hydrox/Simethicone (Maalox Plus 30 Ml) 30 ml PO Q6 PRN PRN Reason: Heartburn Albuterol/Ipratropium (Duoneb 3 Mg/0.5 Mg (3 Ml) Ud) 3 ml IH RQ4 [facility] Last Admin: 10/02/16 11:01 Dose: 3 ml Aspirin (Ecotrin) 81 mg PO DAILY [facility] Brimonidine Tartrate (Alphagan 0.2% Opht) 0 ml OU TID [facility] Last Admin: 10/02/16 13:17 Dose: 1 drop Calcium Acetate (Phoslo) 667 mg PO AC [facility] Last Admin: 10/02/16 12:53 Dose: 667 mg Carvedilol (Coreg) 12.5 mg PO BID [facility] Last Admin: 10/01/16 10:37 Dose: 12.5 mg Dorzolamide HCl (Trusopt) 1 ml OU BID [facility] Last Admin: 10/02/16 10:43 Dose: 1 drop Epoetin Armin (Procrit) 10,000 unit SC MWF [facility] Stop: 10/06/16 09:01 Last Admin: 10/01/16 08:58 Dose: 10,000 unit Furosemide (Lasix) 40 mg IVP DAILY [facility] Last Admin: 10/02/16 10:58 Dose: 40 mg Gabapentin (Neurontin) 100 mg PO TID [facility] Last Admin: 10/02/16 13:17 Dose: 100 mg Hydralazine HCl (Apresoline) 75 mg PO TID [facility] Last Admin: 10/01/16 14:55 Dose: Not Given Azithromycin 500 mg/ Sodium (Chloride) 250 mls @ 250 mls/hr IVPB DAILY [facility] Last Admin: 10/02/16 11:05 Dose: 250 mls/hr Cefepime HCl 0.5 gm/ Dextrose 50 mls @ 100 mls/hr IVPB DAILY [facility] Last Admin: 10/02/16 10:31 Dose: 100 mls/hr Dextrose/Sodium Chloride (Dextrose 5%/0.9% Ns 1000 Ml) 1,000 mls @ 60 mls/hr IV .[id number] [facility] Last Admin: 10/02/16 02:35 Dose: 60 mls/hr Insulin Aspart (Novolog Mix 70/30 (70/30 Units/Ml)) 15 units SC ACD [facility] Last Admin: 10/01/16 17:54 Dose: Not Given Insulin Aspart (Novolog Mix 70/30 (70/30 Units/Ml)) 20 units SC ACB [facility] Last Admin: 10/02/16 08:53 Dose: Not Given Insulin Human Regular (Novolin R) 0 unit SC ACHS [facility] PRN Reason: Protocol Last Admin: 10/02/16 12:30 Dose: Not Given Lorazepam (Ativan) 1 mg PO TID PRN PRN Reason: Anxiety Pantoprazole Sodium (Protonix Ec Tab) 40 mg PO 0630 [facility] Last Admin: 10/02/16 05:49 Dose: 40 mg Polyethylene Glycol (Miralax) 17 gm PO DAILY [facility] Last Admin: 10/02/16 10:44 Dose: 17 gm Rosuvastatin Calcium (Crestor) 10 mg PO HS [facility] Last Admin: 10/01/16 23:10 Dose: 10 mg - Labs Labs: 10/02/16 11:22 10/02/16 11:22 PT 12.1 SECONDS (9.7-12.2) 10/02/16 11:22 INR 1.1 10/02/16 11:22 APTT 35 SECONDS (21-34) H 10/01/16 06:25
--- NOTE | 2016-10-02 18:06 | CP.PCM.PN ---
<Erickson Adams - Last Filed: 10/02/16 18:02> Subjective - Date & Time of Evaluation Date of Evaluation: 10/02/16 Time of Evaluation: 07:00 - Subjective Subjective: Dr. Adams PG 1 Hospitalist Note Patient seen and evaluate at bedside using wire fence erector service(#[id number]). The patient states after getting blood she is feeling much stronger. Her SOB has mildly improved. She states her abdomen has been tender due to being constipated. She says her last bowel movement was a few days ago. She says when she does have a bowel moment it is hard and hurts. she denies any chest pain, fever, chills, nausea, or vomiting. Per nursing, patient received 3 units of blood but no adverse events. Objective - Vital Signs/Intake and Output Vital Signs (last 24 hours): Temp Pulse Resp BP Pulse Ox 98.1 F 82 20 152/60 H 100 10/02/16 15:49 10/02/16 15:49 10/02/16 15:49 10/02/16 10:58 10/02/16 15:49 Intake and Output: 10/02/16 10/02/16 06:59 18:59 Intake Total 470 1235 Output Total 1000 Balance 470 235 - Medications Medications: Current Medications Acetaminophen (Tylenol 325mg Tab) 650 mg PO Q6H PRN PRN Reason: Fever >100.4 F Al Hydrox/Mg Hydrox/Simethicone (Maalox Plus 30 Ml) 30 ml PO Q6 PRN PRN Reason: Heartburn Albuterol/Ipratropium (Duoneb 3 Mg/0.5 Mg (3 Ml) Ud) 3 ml IH RQ4 [facility] Last Admin: 10/02/16 11:01 Dose: 3 ml Aspirin (Ecotrin) 81 mg PO DAILY [facility] Brimonidine Tartrate (Alphagan 0.2% Opht) 0 ml OU TID [facility] Last Admin: 10/02/16 13:17 Dose: 1 drop Calcium Acetate (Phoslo) 667 mg PO AC [facility] Last Admin: 10/02/16 12:53 Dose: 667 mg Carvedilol (Coreg) 12.5 mg PO BID [facility] Last Admin: 10/01/16 10:37 Dose: 12.5 mg Dorzolamide HCl (Trusopt) 1 ml OU BID [facility] Last Admin: 10/02/16 10:43 Dose: 1 drop Epoetin Armin (Procrit) 10,000 unit SC MWF [facility] Stop: 10/06/16 09:01 Last Admin: 10/01/16 08:58 Dose: 10,000 unit Furosemide (Lasix) 40 mg IVP DAILY [facility] Last Admin: 10/02/16 10:58 Dose: 40 mg Gabapentin (Neurontin) 100 mg PO TID [facility] Last Admin: 10/02/16 13:17 Dose: 100 mg Hydralazine HCl (Apresoline) 75 mg PO TID [facility] Last Admin: 10/01/16 14:55 Dose: Not Given Azithromycin 500 mg/ Sodium (Chloride) 250 mls @ 250 mls/hr IVPB DAILY [facility] Last Admin: 10/02/16 11:05 Dose: 250 mls/hr Cefepime HCl 0.5 gm/ Dextrose 50 mls @ 100 mls/hr IVPB DAILY [facility] Last Admin: 10/02/16 10:31 Dose: 100 mls/hr Dextrose/Sodium Chloride (Dextrose 5%/0.9% Ns 1000 Ml) 1,000 mls @ 60 mls/hr IV .[id number] [facility] Last Admin: 10/02/16 02:35 Dose: 60 mls/hr Insulin Aspart (Novolog Mix 70/30 (70/30 Units/Ml)) 15 units SC ACD [facility] Last Admin: 10/01/16 17:54 Dose: Not Given Insulin Aspart (Novolog Mix 70/30 (70/30 Units/Ml)) 20 units SC ACB [facility] Last Admin: 10/02/16 08:53 Dose: Not Given Insulin Human Regular (Novolin R) 0 unit SC ACHS [facility] PRN Reason: Protocol Last Admin: 10/02/16 12:30 Dose: Not Given Lorazepam (Ativan) 1 mg PO TID PRN PRN Reason: Anxiety Pantoprazole Sodium (Protonix Ec Tab) 40 mg PO 0630 [facility] Last Admin: 10/02/16 05:49 Dose: 40 mg Polyethylene Glycol (Miralax) 17 gm PO DAILY [facility] Last Admin: 10/02/16 10:44 Dose: 17 gm Rosuvastatin Calcium (Crestor) 10 mg PO HS [facility] Last Admin: 10/01/16 23:10 Dose: 10 mg - Labs Labs: 10/02/16 11:22 10/02/16 11:22 PT 12.1 SECONDS (9.7-12.2) 10/02/16 11:22 INR 1.1 10/02/16 11:22 APTT 35 SECONDS (21-34) H 10/01/16 06:25 - Constitutional Appears: Non-toxic, No Acute Distress - Head Exam Head Exam: ATRAUMATIC, NORMOCEPHALIC - Eye Exam Eye Exam: EOMI, Normal appearance, PERRL Pupil Exam: NORMAL ACCOMODATION, PERRL - ENT Exam ENT Exam: Mucous Membranes Moist, Normal Oropharynx - Neck Exam Neck Exam: Normal Inspection. absent: Tenderness, Thyromegaly - Respiratory Exam Respiratory Exam: Clear to Ausculation Bilateral, NORMAL BREATHING PATTERN. absent: Rales, Rhonchi, Wheezes - Cardiovascular Exam Cardiovascular Exam: REGULAR RHYTHM, +S1, +S2. absent: Gallop, Rubs, Murmur - GI/Abdominal Exam GI & Abdominal Exam: Soft, Tenderness (RLQ and LLQ), Normal Bowel Sounds. absent: Distended, Guarding - Extremities Exam Extremities Exam: absent: Normal Inspection (bilateral lower extrememity amputation), Tenderness - Neurological Exam Neurological Exam: Alert, Awake, CN II-XII Intact, Oriented x3 - Psychiatric Exam Psychiatric exam: Normal Affect, Normal Mood - Skin Skin Exam: Dry, Intact, Normal Color, Warm Assessment and Plan - Assessment and Plan (Free Text) Plan: Anemia * Nephrology consult, Dr. Saeed, help appreciated * GI consulted, Dr. Reyna, help appreicated * Likely from chronic kidney disease vs multiple myeloma vs GI bleed * Abdominal CT shows partial pericardial effusion, bilaterl pleural effusions, urinary bladder containing air [see full report] * FOBT positive * Patient on telemetry * Initial hgb 6.8 and transfused 3 units HGB currently 10.3 * Iron studies: Iron 51, TIBC 172, 30% sat, Ferritin 165/ * F/U Protein electrophoresis studies * Immunofixation shows faint IgG and Lambda against a dense polyclonal background may represent developing plasma cell disorder. * Beta-2 microglobulins 18.0 H * Procrit 10,000 unit SC MWF * NS 60 cc/hr Dyspnea * history of asthma and COPD * CXR: mild pulmonary congestion. small left pleural effusion vs infiltrate/ atelectasis (see full report) * Chest CT shows bilateral pleural effusions, bilateral lower lobe compresive atelectasis, small pericardial effusion with mild cardiomegaly [see full report] * Duonebs * Cefepime 1 gm IVPB Q12H * Azithromycin 500 mg IVPB daily * Lasix 40 mg PO BID UTI * Urine cultures grew gram negative rods * continue azithromycin and cefepime * await sensitivities DM * ISS * Accuchecks * Insulin aspart 20 units SC ACB/15 units SC ACD HTN * Hydralazine 75 mg PO TID, held due to hypotension * Resume coreg 12.5 mg PO BID due to BP rising. HLD * Crestor 10 mg PO HS CKD * Nephrology consult, Dr. Saeed, help appreciated * obtaining 24 hr urine protein and creatinine clearance with urine immunofixation * f/u repeat urinalysis * NS 60 cc/hr * Bun/Cr 63/3.4 Prophylactic Measures * chemical anticoagulation contraindicated to FOBT+ and anemia * Miralax 17 gm PO daily * Protonix 40 mg PO daily * Gabapentin 100 mg PO TID * Maalox 30 ml PO Q6H PRN * Tylenol 650 mg PO Q6H PRN * HHD with mod carb, renal Assesment and plan discussed with attending physician. <Ondina Esqueda V - Last Filed: 01/01/17 00:17> Objective - Vital Signs/Intake and Output Vital Signs (last 24 hours): Temp Pulse Resp BP Pulse Ox 98.9 F 92 H 20 121/46 L 100 10/07/16 16:00 10/07/16 16:00 10/07/16 16:00 10/07/16 16:00 10/07/16 16:00 - Labs Labs: 10/07/16 08:32 10/07/16 08:32 PT 12.1 SECONDS (9.7-12.2) 10/02/16 11:22 INR 1.1 10/02/16 11:22 APTT 35 SECONDS (21-34) H 10/01/16 06:25 Attending/Attestation - Attestation I have personally seen and examined this patient.: Yes I have fully participated in the care of the patient.: Yes I have reviewed all pertinent clinical information, including history, physical exam and plan: Yes
--- NOTE | 2016-10-02 23:54 | PN ---
DATE: 10/02/2016 LOCATION: The patient is located in room 652, bed A. REQUESTED BY: Dr. Ondina Esqueda. REASON FOR RENAL CONSULTATION: Follow up chronic kidney disease stage IV-V and for further evaluation. HISTORY OF PRESENT ILLNESS: The patient is a 61-year-old obese female with a past medical history significant for long-standing hypertension, diabetes , asthma, depression, bilateral AKA, was in the half-way and history of anemia, gastritis, hiatal hernia, who was sent from the half-way with low H and H and increased BUN and creatinine. The patient received 2 units of packed RBC today. The patient is feeling better, not in acute distress, denies any headache, dizziness. Denies any chest pain, palpitation. No abdominal pain, no nausea, vomiting, diarrhea. A 24-hour urine protein and creatinine clearance is in progress. PHYSICAL EXAMINATION: VITAL SIGNS: As follows: Blood pressure this morning 152/60, pulse 88, respiration 20, temperature 98.1, saturation 100%, height 5 feet, weight is 207 pounds. GENERAL: The patient is a 61-year-old elderly obese female, moderately built and moderately nourished, not in distress. HEENT: Pupils normal, reactive to light and accommodation. Conjunctivae pink. Sclerae anicteric. Tongue is moist. NECK: Trachea is midline. LUNGS: Symmetric on both sides. Bilateral breath sounds present. Clear on auscultation. CARDIOVASCULAR: [place] in the fifth intercostal space midclavicular line. S1 and S2 audible. No murmur or gallop. ABDOMEN: Normal in appearance, soft, tympanic. No guarding, no rigidity. No hepatosplenomegaly. CENTRAL NERVOUS SYSTEM: The patient is alert, awake, oriented x 3. Sensory system is grossly within normal limits. Motor normal. EXTREMITIES: Bilateral AKA. CURRENT MEDICATIONS: Include as follows, Alphagan eyedrops and hydralazine 75 p.o. t.i.d., 81.1 mg p.o. t.i.d., azithromycin 500 mg daily, cefepime 0.5 grams daily, Coreg 12.5 mg p.o. b.i.d., Crestor 10 mg p.o. at bedtime, DuoNeb inhaler , Ecotrin 81 mg p.o. daily, Lasix 40 mg IV daily and Maalox and MiraLax, gabapentin 100 mg p.o. t.i.d., Novolin R for sliding scale, NovoLog mix 70/30 20 units subQ before breakfast and 70/30 15 units before dinner, PhosLo 667 mg p.o., and Procrit 10,000 units subQ 3 times a week, Protonix 40 mg daily, eyedrops, and Tylenol. LABORATORY DATA: Include as follows: As of 10/02/2016. WBC 7.2, hemoglobin 10.3, hematocrit is 31.3, platelets 151. Sodium is 132, potassium 4.1, chloride 94, CO2 31, BUN 60, creatinine 3.4 and GFR is 17 mL, and glucose is 107 , calcium is 7.9, phosphorus is 5.4 and magnesium 2.9, total bilirubin 0.8, AST 16, ALT 22, alkaline phosphatase 51, total protein 6.5, albumin is 3.2. Serum protein electrophoresis pending. Serum immunofixation, faint band in the gamma IgG and lambda is present aganist a dense polyclonal background. This may represent reaction to inflammatory process and developing plasma cell disorder cannot be excluded. Influenza A and B antibody is negative. CT of the abdomen and pelvis as of 10/01/2016 partially is moderate pericardial effusion, moderate bilateral pleural effusions and bilateral compressive consolidations, decompressed urinary bladder .. This may be secondary to instrumentation with recent placement of Allred catheter. Cystitis cannot be excluded. CT of the chest as of 10/01/2016: Impression: Moderate bilateral pleural effusions, bilateral lower lobe compressive atelectasis, small pericardial effusion with mild cardiomegaly, coronary artery calcification, no flank pulmonary infiltrate , minimal bilaterally apical emphysematous change. SUMMARY: 1. The patient is a 61-year-old obese elderly patient with hypertension, diabetes, chronic obstructive pulmonary disease, asthma, depression, anemia, bilateral above-knee amputation with increased BUN and creatinine, low H and H and status post transfusion and positive monoclonal IgG lambda on immunofixation. 2. Chronic kidney disease IV, rule out diabetic nephropathy, rule out underlying chronic glomerulonephritis such as focal segmental glomerulo sclerosis. 3. Hypertension. Blood pressure is stable. Continue her current medication, hydralazine. 5. Anemia, status post transfusion. H and H is stable. Rule out multiple myeloma, rule out MGUS. Consider hematology evaluation. The patient may need bone marrow biopsy. We will also check PTH intact level. Will follow with you. 6. Continue PhosLo 667 mg 1 tablet p.o. t.i.d. Consider to change PhosLo to Renvela due to coronary calcification. 7. Lasix 40 mg IV q. 12 hours and titrate as needed. Thank you for allowing me to participate in your patient's care. Asha Saeed MD cc: [id number] TT: 10/02/2016 23:53:49 Confirmation # [id number] Dictation # [id number] mn MTDD
[2016-10-03] MEDS: Albuterol-Ipratrop 3 mg / 0.5 (3 ml) UD IH SCH ×5 (03:28→21:30)
[2016-10-03] MEDS: Pantoprazole 40 mg EC Tab PO SCH (05:44)
[2016-10-03 06:31] LABS: BASO % 0.4 % (0.0-2.0); EOS # 0.2 K/uL (0.0-0.7); EOS % 2.7 % (0.0-4.0); HEMATOCRIT 29.9 % (34.0-47.0); LYMPH # 0.8 K/uL (1.0-4.3); LYMPH % 10.8 % (20.0-40.0); MEAN CELL VOLUME 89.3 fL (81.0-99.0); MEAN CORPUSCULAR HEMOGLOBIN 28.7 pg (27.0-31.0); MEAN CORPUSCULAR HGB CONC 32.1 g/dL (33.0-37.0); MEAN PLATELET VOLUME 10.7 fL (7.2-11.7); MONO # 0.7 K/uL (0.0-0.8); MONO % 9.3 % (0.0-10.0); RED CELL DISTRIBUTION WIDTH 15.5 % (11.5-14.5); WHITE BLOOD COUNT 7.1 K/uL (4.8-10.8)
[2016-10-03 06:46] LABS: POTASSIUM 4.3 mmol/L (3.6-5.2)
[2016-10-03 06:48] LABS: BILIRUBIN,TOTAL 0.6 mg/dL (0.2-1.3)
[2016-10-03 06:49] LABS: ALB/GLOB RATIO 0.9 (1.0-2.1); CALCIUM 7.7 mg/dl (8.6-10.4); TOTAL PROTEIN 5.9 g/dL (6.3-8.3)
[2016-10-03] MEDS: (Novolog Mix 70/30) Insulin Aspart/Insulin Aspar 100 units/ml SC SCH ×2 (08:02→19:03)
[2016-10-03] MEDS: (Novolin R) Insulin Human Regular 100 units/ml vial SC SCH ×4 (08:02→22:03)
[2016-10-03 08:06] LABS: BETA 1 GLOBULIN 0.3 g/dL (0.4-0.6); BETA 2 GLOBULIN 0.4 g/dL (0.2-0.5); GAMMA GLOBULIN 1.2 g/dL (0.8-1.7)
[2016-10-03 08:24] LABS: RBC URINE 2 /hpf (0-3); URINE BACTERIA RARE (<OCC); URINE BILIRUBIN NEGATIVE (NEGATIVE); URINE BLOOD NEGATIVE (NEGATIVE); URINE COLOR Yellow (YELLOW); URINE GLUCOSE (UA) 1+ mg/dL (Normal); URINE KETONE NEGATIVE (NEGATIVE); URINE LEUKOCYTE ESTERASE 3+ Leu/uL (Negative); URINE PROTEIN 3+ mg/dL (NEGATIVE); URINE UROBILINOGEN NORMAL mg/dL (0.2-1.0); WBC URINE 10 /hpf (0-5)
[2016-10-03] MEDS: EPOETIN ALFA 10,000 UNIT/ML ML SC SCH (08:41)
[2016-10-03] MEDS ORDERED: Vancomycin 1 gm/NS 200 ml 1 GM/200 ML BAG IVPB STA (10:27)
[2016-10-03] MEDS: Azithromycin 500 MG in Sodium Chloride 0.9% 250 ML IVPB SCH (10:28)
--- NOTE | 2016-10-03 10:38 | CP.PCM.PN ---
Subjective - Date & Time of Evaluation Date of Evaluation: 10/03/16 Time of Evaluation: 10:37 - Subjective Subjective: pt seen and examined, follow up consult is dictated #[id number] increase lasix to 40 mg iv/po bid renal function is stable, consider hematology evaluation to r/o MM r/o MGUS Objective - Vital Signs/Intake and Output Vital Signs (last 24 hours): Temp Pulse Resp BP Pulse Ox 98.2 F 80 20 136/54 L 100 10/03/16 07:20 10/03/16 07:20 10/03/16 07:20 10/03/16 07:20 10/03/16 07:20 Intake and Output: 10/03/16 10/03/16 06:59 18:59 Intake Total 300 Output Total 1300 Balance -1000 - Medications Medications: Current Medications Acetaminophen (Tylenol 325mg Tab) 650 mg PO Q6H PRN PRN Reason: Fever >100.4 F Al Hydrox/Mg Hydrox/Simethicone (Maalox Plus 30 Ml) 30 ml PO Q6 PRN PRN Reason: Heartburn Albuterol/Ipratropium (Duoneb 3 Mg/0.5 Mg (3 Ml) Ud) 3 ml IH RQ4 [facility] Last Admin: 10/03/16 07:54 Dose: 3 ml Aspirin (Ecotrin) 81 mg PO DAILY [facility] Brimonidine Tartrate (Alphagan 0.2% Opht) 0 ml OU TID [facility] Last Admin: 10/02/16 18:43 Dose: 1 drop Calcium Acetate (Phoslo) 667 mg PO AC [facility] Last Admin: 10/03/16 08:41 Dose: 667 mg Carvedilol (Coreg) 12.5 mg PO BID [facility] Last Admin: 10/02/16 18:35 Dose: 12.5 mg Dorzolamide HCl (Trusopt) 1 ml OU BID [facility] Last Admin: 10/02/16 18:42 Dose: 1 drop Epoetin Armin (Procrit) 10,000 unit SC MWF [facility] Stop: 10/06/16 09:01 Last Admin: 10/03/16 08:41 Dose: 10,000 unit Furosemide (Lasix) 40 mg IVP BID [facility] Gabapentin (Neurontin) 100 mg PO TID [facility] Last Admin: 10/02/16 18:36 Dose: 100 mg Hydralazine HCl (Apresoline) 75 mg PO TID [facility] Last Admin: 10/01/16 14:55 Dose: Not Given Azithromycin 500 mg/ Sodium (Chloride) 250 mls @ 250 mls/hr IVPB DAILY [facility] Last Admin: 10/03/16 10:28 Dose: 250 mls/hr Cefepime HCl 0.5 gm/ Dextrose 50 mls @ 100 mls/hr IVPB DAILY [facility] Last Admin: 10/03/16 09:34 Dose: 100 mls/hr Dextrose/Sodium Chloride (Dextrose 5%/0.9% Ns 1000 Ml) 1,000 mls @ 60 mls/hr IV .[id number] [facility] Last Admin: 10/02/16 20:47 Dose: Not Given Vancomycin/Sodium Chloride (Vancocin) 1 gm in 200 mls @ 133.333 mls/hr IVPB STAT [facility] Stop: 10/03/16 11:56 Insulin Aspart (Novolog Mix 70/30 (70/30 Units/Ml)) 15 units SC ACD [facility] Last Admin: 10/02/16 18:36 Dose: 15 units Insulin Aspart (Novolog Mix 70/30 (70/30 Units/Ml)) 20 units SC ACB [facility] Last Admin: 10/03/16 08:02 Dose: Not Given Insulin Human Regular (Novolin R) 0 unit SC ACHS [facility] PRN Reason: Protocol Last Admin: 10/03/16 08:02 Dose: Not Given Lorazepam (Ativan) 1 mg PO TID PRN PRN Reason: Anxiety Pantoprazole Sodium (Protonix Ec Tab) 40 mg PO 0630 [facility] Last Admin: 10/03/16 05:44 Dose: 40 mg Polyethylene Glycol (Miralax) 17 gm PO DAILY [facility] Last Admin: 10/02/16 10:44 Dose: 17 gm Rosuvastatin Calcium (Crestor) 10 mg PO HS [facility] Last Admin: 10/02/16 21:05 Dose: 10 mg - Labs Labs: 10/03/16 06:23 10/03/16 06:23 PT 12.1 SECONDS (9.7-12.2) 10/02/16 11:22 INR 1.1 10/02/16 11:22 APTT 35 SECONDS (21-34) H 10/01/16 06:25
[2016-10-03] MEDS: POLYETHYLENE GLYCOL 3350 17 GM/Dose PACKET PO SCH (10:56)
[2016-10-03] MEDS: Brimonidine 0.2% Opth Sol (5ml) OU SCH ×3 (10:56→18:56)
[2016-10-03] MEDS: Dorzolamide 2% Opht Sol 10ml OU SCH ×2 (10:56→18:56)
--- NOTE | 2016-10-03 13:12 | CP.PCM.PN ---
Subjective - Date & Time of Evaluation Date of Evaluation: 10/03/16 Time of Evaluation: 13:09 - Subjective Subjective: RFV: Anemia S: No acute events. Complains of loose stool x 2 days, but generally has hard stools and constipatoin. refuses miralax. Objective - Vital Signs/Intake and Output Vital Signs (last 24 hours): Temp Pulse Resp BP Pulse Ox 98.2 F 80 20 180/75 H 100 10/03/16 07:20 10/03/16 07:20 10/03/16 07:20 10/03/16 10:56 10/03/16 07:20 Intake and Output: 10/03/16 10/03/16 06:59 18:59 Intake Total 300 Output Total 1300 Balance -1000 - Medications Medications: Current Medications Acetaminophen (Tylenol 325mg Tab) 650 mg PO Q6H PRN PRN Reason: Fever >100.4 F Al Hydrox/Mg Hydrox/Simethicone (Maalox Plus 30 Ml) 30 ml PO Q6 PRN PRN Reason: Heartburn Albuterol/Ipratropium (Duoneb 3 Mg/0.5 Mg (3 Ml) Ud) 3 ml IH RQ4 [facility] Last Admin: 10/03/16 11:19 Dose: 3 ml Aspirin (Ecotrin) 81 mg PO DAILY [facility] Brimonidine Tartrate (Alphagan 0.2% Opht) 0 ml OU TID [facility] Last Admin: 10/03/16 10:56 Dose: 1 drop Calcium Acetate (Phoslo) 667 mg PO AC [facility] Last Admin: 10/03/16 12:50 Dose: 667 mg Carvedilol (Coreg) 12.5 mg PO BID [facility] Last Admin: 10/03/16 10:56 Dose: 12.5 mg Docusate Sodium (Colace) 100 mg PO TID [facility] Dorzolamide HCl (Trusopt) 1 ml OU BID [facility] Last Admin: 10/03/16 10:56 Dose: 1 drop Epoetin Armin (Procrit) 10,000 unit SC MWF [facility] Stop: 10/06/16 09:01 Last Admin: 10/03/16 08:41 Dose: 10,000 unit Furosemide (Lasix) 40 mg IVP BID [facility] Last Admin: 10/03/16 10:56 Dose: 40 mg Gabapentin (Neurontin) 100 mg PO TID [facility] Last Admin: 10/03/16 10:58 Dose: 100 mg Hydralazine HCl (Apresoline) 75 mg PO TID [facility] Last Admin: 10/01/16 14:55 Dose: Not Given Azithromycin 500 mg/ Sodium (Chloride) 250 mls @ 250 mls/hr IVPB DAILY [facility] Last Admin: 10/03/16 10:28 Dose: 250 mls/hr Cefepime HCl 0.5 gm/ Dextrose 50 mls @ 100 mls/hr IVPB DAILY [facility] Last Admin: 10/03/16 09:34 Dose: 100 mls/hr Insulin Aspart (Novolog Mix 70/30 (70/30 Units/Ml)) 15 units SC ACD [facility] Last Admin: 10/02/16 18:36 Dose: 15 units Insulin Aspart (Novolog Mix 70/30 (70/30 Units/Ml)) 20 units SC ACB [facility] Last Admin: 10/03/16 08:02 Dose: Not Given Insulin Human Regular (Novolin R) 0 unit SC ACHS [facility] PRN Reason: Protocol Last Admin: 10/03/16 12:50 Dose: 1 unit Lorazepam (Ativan) 1 mg PO TID PRN PRN Reason: Anxiety Pantoprazole Sodium (Protonix Ec Tab) 40 mg PO 0630 [facility] Last Admin: 10/03/16 05:44 Dose: 40 mg Rosuvastatin Calcium (Crestor) 10 mg PO HS [facility] Last Admin: 10/02/16 21:05 Dose: 10 mg Saccharomyces Boulardii (Florastor) 250 mg PO BID [facility] - Labs Labs: 10/03/16 06:23 10/03/16 06:23 PT 12.1 SECONDS (9.7-12.2) 10/02/16 11:22 INR 1.1 10/02/16 11:22 APTT 35 SECONDS (21-34) H 10/01/16 06:25 - Constitutional Appears: No Acute Distress, Chronically Ill - Head Exam Head Exam: ATRAUMATIC, NORMOCEPHALIC - Eye Exam Eye Exam: Normal appearance. absent: Scleral icterus - ENT Exam ENT Exam: Mucous Membranes Moist, Normal Oropharynx - Respiratory Exam Respiratory Exam: Clear to Ausculation Bilateral, NORMAL BREATHING PATTERN. absent: Respiratory Distress - Cardiovascular Exam Cardiovascular Exam: REGULAR RHYTHM, +S1, +S2 - GI/Abdominal Exam GI & Abdominal Exam: Soft. absent: Distended, Tenderness Additional comments: obese - Neurological Exam Neurological Exam: Alert, Oriented x3 Assessment and Plan - Assessment and Plan (Free Text) Assessment: 61 year old female with h/o morbid obesity, PVD s/p BL LE amputations, CKD, COPD , HTN with anemia. 1. Anemia 2. Constipation Plan: - diet as tolerated - Monitor Hgb - recommend outpatient colonoscopy - probably has anemia of chronic disease or renal failure - stop miralax as patient refuses - start colace tid instead for now
--- NOTE | 2016-10-03 16:28 | PN ---
DATE: 10/03/2016 The patient appears cheerful. She denies chest pain or abdominal pain. PHYSICAL EXAMINATION: VITAL SIGNS: Blood pressure 180/75, heart rate 81, temperature 98.2. HEENT: Pale conjunctivae. CHEST: Clear. HEART: S1, S2 regular. ABDOMEN: Soft. EXTREMITIES: Bilateral above-knee amputations. LABORATORIES: Today's BUN and creatinine are 60 and 3.0. Potassium is within normal limits. Glucos e is elevated at 125. Hemoglobin and hematocrit 9.6 and 29.9. White count and platelet count are wi thin normal limits. ASSESSMENT: 1. Anemia, status post packed RBC transfusion. 2. Advanced renal insufficiency. 3. Inferolateral ischemic EKG changes. Myocardial infarction is ruled out. 4. Peripheral vascular disease, status post bilateral above-knee amputations. 5. Gram-positive bacteremia. 6. Escherichia coli urinary tract infection, vancomycin-resistant Enterococci. RECOMMENDATIONS: Continue hydralazine at 75 mg t.i.d. Continue IV Zithromax at 500 mg daily, IV cef epime at 0.5 grams daily. Continue Lasix 40 mg intravenously twice a day, aspirin 81 mg once a day, Crestor 10 mg once a day. Jaquan Solano MD cc: [id number] TT: 10/03/2016 16:28:09 Confirmation # [id number] Dictation # [id number] lauro
--- NOTE | 2016-10-03 17:03 | CP.PCM.CON ---
History of Present Illness - History of Present Illness History of Present Illness: dictated Past Patient History - Infectious Disease Hx of Infectious Diseases: None - Past Medical History & Family History Past Medical History?: Yes - Past Social History Smoking Status: Never Smoked - CARDIAC Hx Hypertension: Yes - PULMONARY Hx Asthma: Yes Hx Chronic Obstructive Pulmonary Disease (COPD): Yes Hx Emphysema: Yes Hx Pneumonia: Yes - HEENT Hx HEENT Problems: Yes (WEARS RX GLASSES) Hx Glaucoma: Yes - RENAL Hx Chronic Kidney Disease: Yes - ENDOCRINE/METABOLIC Hx Diabetes Mellitus Type 2: Yes - HEMATOLOGICAL/ONCOLOGICAL Hx Anemia: Yes - INTEGUMENTARY Hx Dermatological Problems: Yes Other/Comment: notes from last pt visit/previous triage:redness under both breasts and b/l abd folds, healed skin to buttocks and sacrum - GASTROINTESTINAL Hx Gastrointestinal Disorders: Yes Other/Comment: obesity - GENITOURINARY/GYNECOLOGICAL Hx Genitourinary Disorders: Yes Hx Incontinence: Yes Hx Urinary Tract Infection: Yes - PSYCHIATRIC Hx Anxiety: Yes Hx Depression: Yes Hx Substance Use: No - ANESTHESIA Hx Anesthesia: Yes Hx Anesthesia Reactions: No Hx Malignant Hyperthermia: No Meds Allergies/Adverse Reactions: Allergies Allergy/AdvReac Type Severity Reaction Status Date / Time cilastatin sodium Allergy RASH Verified 09/30/16 17:52 [From Primaxin] imipenem [From Primaxin] Allergy RASH Verified 09/30/16 17:52 oxycodone Allergy RASH Verified 09/30/16 17:52 - Medications Medications: Current Medications Acetaminophen (Tylenol 325mg Tab) 650 mg PO Q6H PRN PRN Reason: Fever >100.4 F Al Hydrox/Mg Hydrox/Simethicone (Maalox Plus 30 Ml) 30 ml PO Q6 PRN PRN Reason: Heartburn Albuterol/Ipratropium (Duoneb 3 Mg/0.5 Mg (3 Ml) Ud) 3 ml IH RQ4 [facility] Last Admin: 10/03/16 11:19 Dose: 3 ml Aspirin (Ecotrin) 81 mg PO DAILY [facility] Brimonidine Tartrate (Alphagan 0.2% Opht) 0 ml OU TID [facility] Last Admin: 10/03/16 13:27 Dose: 1 drop Calcium Acetate (Phoslo) 667 mg PO AC [facility] Last Admin: 10/03/16 12:50 Dose: 667 mg Carvedilol (Coreg) 12.5 mg PO BID [facility] Last Admin: 10/03/16 10:56 Dose: 12.5 mg Docusate Sodium (Colace) 100 mg PO TID [facility] Last Admin: 10/03/16 13:27 Dose: 100 mg Dorzolamide HCl (Trusopt) 1 ml OU BID [facility] Last Admin: 10/03/16 10:56 Dose: 1 drop Epoetin Armin (Procrit) 10,000 unit SC MWF [facility] Stop: 10/06/16 09:01 Last Admin: 10/03/16 08:41 Dose: 10,000 unit Furosemide (Lasix) 40 mg IVP BID [facility] Last Admin: 10/03/16 10:56 Dose: 40 mg Gabapentin (Neurontin) 100 mg PO TID [facility] Last Admin: 10/03/16 13:27 Dose: 100 mg Hydralazine HCl (Apresoline) 75 mg PO TID [facility] Last Admin: 10/01/16 14:55 Dose: Not Given Tigecycline 100 mg/ Sodium (Chloride) 100 mls @ 100 mls/hr IVPB ONCE ONE Stop: 10/03/16 17:56 Tigecycline 50 mg/ Dextrose 100 mls @ 100 mls/hr IVPB Q12H [facility] Insulin Aspart (Novolog Mix 70/30 (70/30 Units/Ml)) 15 units SC ACD [facility] Last Admin: 10/02/16 18:36 Dose: 15 units Insulin Aspart (Novolog Mix 70/30 (70/30 Units/Ml)) 20 units SC ACB [facility] Last Admin: 10/03/16 08:02 Dose: Not Given Insulin Human Regular (Novolin R) 0 unit SC ACHS [facility] PRN Reason: Protocol Last Admin: 10/03/16 12:50 Dose: 1 unit Lorazepam (Ativan) 1 mg PO TID PRN PRN Reason: Anxiety Pantoprazole Sodium (Protonix Ec Tab) 40 mg PO 0630 [facility] Last Admin: 10/03/16 05:44 Dose: 40 mg Rosuvastatin Calcium (Crestor) 10 mg PO HS [facility] Last Admin: 10/02/16 21:05 Dose: 10 mg Saccharomyces Boulardii (Florastor) 250 mg PO BID [facility] Results - Vital Signs Recent Vital Signs: Last Vital Signs Temp 98.2 F 10/03/16 07:20 Pulse 81 10/03/16 13:00 Resp 20 10/03/16 07:20 BP 180/75 H 10/03/16 10:56 Pulse Ox 100 10/03/16 07:20 - Labs Result Diagrams: 10/03/16 06:23 10/03/16 06:23 Labs: Laboratory Results - last 24 hr 10/01/16 10/02/16 10/02/16 06:25 21:34 21:48 WBC RBC Hgb Hct MCV MCH MCHC RDW Plt Count MPV Neut % (Auto) Lymph % (Auto) [place] % (Auto) Eos % (Auto) Baso % (Auto) Neut # Lymph # [place] # Eos # Baso # Sodium Potassium Chloride Carbon Dioxide Anion Gap BUN Creatinine Est GFR ( Amer) Est GFR (Non-Af Amer) POC Glucose (mg/dL) 62 L 55 L Random Glucose Calcium Total Bilirubin AST ALT Alkaline Phosphatase Total Protein Albumin Albumin (PEP) 2.8 L Globulin Albumin/Globulin Ratio Khtur-6-Uscruolww 0.3 Lyfaq-1-Lyhehzuir 0.7 Ejnh-4-Oubpvses 0.3 L Vwmw-2-Bvwneaam 0.4 Gamma Globulins 1.2 Abnorm Protein Band 1 TEST NOT PERFORMED Abnorm Protein Band 2 TEST NOT PERFORMED Abnorm Protein Band 3 TEST NOT PERFORMED Urine Color Urine Clarity Urine pH Ur Specific [place] Urine Protein Urine Glucose (UA) Urine Ketones Urine Blood Urine Nitrate Urine Bilirubin Urine Urobilinogen Ur Leukocyte Esterase Urine WBC (Auto) Urine RBC (Auto) Ur Squamous Epith Cells Urine Bacteria Urine Collection Time Urine Total Volume Creatinine Clearance Ur Protein 24 Hr Calc BRYAN & SPEP Interp See note 10/02/16 10/03/16 10/03/16 22:08 00:54 00:54 WBC RBC Hgb Hct MCV MCH MCHC RDW Plt Count MPV Neut % (Auto) Lymph % (Auto) [place] % (Auto) Eos % (Auto) Baso % (Auto) Neut # Lymph # [place] # Eos # Baso # Sodium Potassium Chloride Carbon Dioxide Anion Gap BUN Creatinine 3.4 H Est GFR ( Amer) Est GFR (Non-Af Amer) POC Glucose (mg/dL) 73 Random Glucose Calcium Total Bilirubin AST ALT Alkaline Phosphatase Total Protein Albumin Albumin (PEP) Globulin Albumin/Globulin Ratio Oleco-4-Exmvvclsf Jeokc-9-Jznwfigvb Msli-1-Nsietjrk Wzms-4-Vvxoltak Gamma Globulins Abnorm Protein Band 1 Abnorm Protein Band 2 Abnorm Protein Band 3 Urine Color Urine Clarity Urine pH Ur Specific [place] Urine Protein Urine Glucose (UA) Urine Ketones Urine Blood Urine Nitrate Urine Bilirubin Urine Urobilinogen Ur Leukocyte Esterase Urine WBC (Auto) Urine RBC (Auto) Ur Squamous Epith Cells Urine Bacteria Urine Collection Time 24 24 Urine Total Volume 2400 2400 Creatinine Clearance 12.0 L Ur Protein 24 Hr Calc BRYAN & SPEP Interp 10/03/16 10/03/16 10/03/16 02:24 06:22 06:23 WBC 7.1 RBC 3.35 L Hgb 9.6 L Hct 29.9 L MCV 89.3 MCH 28.7 MCHC 32.1 L RDW 15.5 H Plt Count 141 MPV 10.7 Neut % (Auto) 76.8 H Lymph % (Auto) 10.8 L [place] % (Auto) 9.3 Eos % (Auto) 2.7 Baso % (Auto) 0.4 Neut # 5.4 Lymph # 0.8 L [place] # 0.7 Eos # 0.2 Baso # 0.0 Sodium Potassium Chloride Carbon Dioxide Anion Gap BUN Creatinine Est GFR ( Amer) Est GFR (Non-Af Amer) POC Glucose (mg/dL) 102 144 H Random Glucose Calcium Total Bilirubin AST ALT Alkaline Phosphatase Total Protein Albumin Albumin (PEP) Globulin Albumin/Globulin Ratio [place]da[place]-0-Tgvtvtpbp Pprlv-1-Baermirfq Mxtn-6-Rxwrjgjp Hqbb-1-Pyklfmko Gamma Globulins Abnorm Protein Band 1 Abnorm Protein Band 2 Abnorm Protein Band 3 Urine Color Urine Clarity Urine pH Ur Specific [place] Urine Protein Urine Glucose (UA) Urine Ketones Urine Blood Urine Nitrate Urine Bilirubin Urine Urobilinogen Ur Leukocyte Esterase Urine WBC (Auto) Urine RBC (Auto) Ur Squamous Epith Cells Urine Bacteria Urine Collection Time Urine Total Volume Creatinine Clearance Ur Protein 24 Hr Calc BRYAN & SPEP Interp 10/03/16 10/03/16 10/03/16 06:23 08:11 08:37 WBC RBC Hgb Hct MCV MCH MCHC RDW Plt Count MPV Neut % (Auto) Lymph % (Auto) [place] % (Auto) Eos % (Auto) Baso % (Auto) Neut # Lymph # [place] # Eos # Baso # Sodium 132 Potassium 4.3 Chloride 97 L Carbon Dioxide 30 Anion Gap 9 L BUN 60 H Creatinine 3.0 H Est GFR ( Amer) 19 Est GFR (Non-Af Amer) 16 POC Glucose (mg/dL) Random Glucose 125 H Calcium 7.7 L Total Bilirubin 0.6 AST 18 ALT 16 Alkaline Phosphatase 44 Total Protein 5.9 L Albumin 2.8 L Albumin (PEP) Globulin 3.0 Albumin/Globulin Ratio 0.9 L Ndgzg-9-Uvwvbtxfv Sumfs-3-Zpuekawep Pumz-5-Erxrzrtg Dsob-5-Zrbpeiwq Gamma Globulins Abnorm Protein Band 1 Abnorm Protein Band 2 Abnorm Protein Band 3 Urine Color Yellow Urine Clarity Hazy Urine pH 7.0 Ur Specific [place] 1.009 Urine Protein 3+ H Urine Glucose (UA) 1+ Urine Ketones Negative Urine Blood Negative Urine Nitrate Negative Urine Bilirubin Negative Urine Urobilinogen Normal Ur Leukocyte Esterase 3+ H Urine WBC (Auto) 10 H Urine RBC (Auto) 2 Ur Squamous Epith Cells 6 H Urine Bacteria Rare Urine Collection Time 24 Urine Total Volume 2400 Creatinine Clearance Ur Protein 24 Hr Calc 9864.0 H BRYAN & SPEP Interp 10/03/16 11:56 WBC RBC Hgb Hct MCV MCH MCHC RDW Plt Count MPV Neut % (Auto) Lymph % (Auto) [place] % (Auto) Eos % (Auto) Baso % (Auto) Neut # Lymph # [place] # Eos # Baso # Sodium Potassium Chloride Carbon Dioxide Anion Gap BUN Creatinine Est GFR ( Amer) Est GFR (Non-Af Amer) POC Glucose (mg/dL) 194 H Random Glucose Calcium Total Bilirubin AST ALT Alkaline Phosphatase Total Protein Albumin Albumin (PEP) Globulin Albumin/Globulin Ratio Swqcq-3-Mhvbvwjdj Sckdc-8-Lbxrgqzjn Dwdl-3-Srcbigvj Gbqj-3-Bikmsbww Gamma Globulins Abnorm Protein Band 1 Abnorm Protein Band 2 Abnorm Protein Band 3 Urine Color Urine Clarity Urine pH Ur Specific [place] Urine Protein Urine Glucose (UA) Urine Ketones Urine Blood Urine Nitrate Urine Bilirubin Urine Urobilinogen Ur Leukocyte Esterase Urine WBC (Auto) Urine RBC (Auto) Ur Squamous Epith Cells Urine Bacteria Urine Collection Time Urine Total Volume Creatinine Clearance Ur Protein 24 Hr Calc BRYAN & SPEP Interp
[2016-10-03] MEDS: Saccharomyces Boulardi 250 mg Cap PO SCH (18:54)
--- NOTE | 2016-10-03 21:29 | CP.PCM.PN ---
<Erickson Adams - Last Filed: 10/03/16 21:26> Subjective - Date & Time of Evaluation Date of Evaluation: 10/03/16 Time of Evaluation: 07:15 - Subjective Subjective: Dr. Adams PG 1 Hospitalist Note Patient seen and evaluate at bedside She states her SOB has improved and she had a soft bowel movment which improved her breathing and abdominal pain. She states it was liquid and she did not like this but it made her abdomen feel better. She reports some burning when she urinates but denies any chest pain, fever, chills, nausea, or vomiting. Per nursing, patient no adverse events. Objective - Vital Signs/Intake and Output Vital Signs (last 24 hours): Temp Pulse Resp BP Pulse Ox 98.0 F 81 20 160/80 H 100 10/03/16 15:30 10/03/16 15:30 10/03/16 15:30 10/03/16 18:56 10/03/16 15:30 Intake and Output: 10/03/16 10/04/16 18:59 06:59 Intake Total 1010 Balance 1010 - Medications Medications: Current Medications Acetaminophen (Tylenol 325mg Tab) 650 mg PO Q6H PRN PRN Reason: Fever >100.4 F Al Hydrox/Mg Hydrox/Simethicone (Maalox Plus 30 Ml) 30 ml PO Q6 PRN PRN Reason: Heartburn Albuterol/Ipratropium (Duoneb 3 Mg/0.5 Mg (3 Ml) Ud) 3 ml IH RQ4 [facility] Last Admin: 10/03/16 11:19 Dose: 3 ml Aspirin (Ecotrin) 81 mg PO DAILY [facility] Brimonidine Tartrate (Alphagan 0.2% Opht) 0 ml OU TID [facility] Last Admin: 10/03/16 18:56 Dose: 1 drop Calcium Acetate (Phoslo) 667 mg PO AC [facility] Last Admin: 10/03/16 18:55 Dose: 667 mg Carvedilol (Coreg) 12.5 mg PO BID [facility] Last Admin: 10/03/16 18:55 Dose: 12.5 mg Docusate Sodium (Colace) 100 mg PO TID [facility] Last Admin: 10/03/16 19:15 Dose: 100 mg Dorzolamide HCl (Trusopt) 1 ml OU BID [facility] Last Admin: 10/03/16 18:56 Dose: 1 drop Epoetin Armin (Procrit) 10,000 unit SC MWF [facility] Stop: 10/06/16 09:01 Last Admin: 10/03/16 08:41 Dose: 10,000 unit Furosemide (Lasix) 40 mg IVP BID [facility] Last Admin: 10/03/16 18:56 Dose: 40 mg Gabapentin (Neurontin) 100 mg PO TID [facility] Last Admin: 10/03/16 18:55 Dose: 100 mg Hydralazine HCl (Apresoline) 75 mg PO TID [facility] Last Admin: 10/01/16 14:55 Dose: Not Given Tigecycline 50 mg/ Sodium (Chloride) 100 mls @ 100 mls/hr IVPB Q12H [facility] Insulin Aspart (Novolog Mix 70/30 (70/30 Units/Ml)) 15 units SC ACD [facility] Last Admin: 10/03/16 19:03 Dose: Not Given Insulin Aspart (Novolog Mix 70/30 (70/30 Units/Ml)) 20 units SC ACB [facility] Last Admin: 10/03/16 08:02 Dose: Not Given Insulin Human Regular (Novolin R) 0 unit SC ACHS [facility] PRN Reason: Protocol Last Admin: 10/03/16 19:05 Dose: 1 unit Lorazepam (Ativan) 1 mg PO TID PRN PRN Reason: Anxiety Pantoprazole Sodium (Protonix Ec Tab) 40 mg PO 0630 [facility] Last Admin: 10/03/16 05:44 Dose: 40 mg Rosuvastatin Calcium (Crestor) 10 mg PO HS [facility] Last Admin: 10/02/16 21:05 Dose: 10 mg Saccharomyces Boulardii (Florastor) 250 mg PO BID [facility] Last Admin: 10/03/16 18:54 Dose: 250 mg - Labs Labs: 10/03/16 06:23 10/03/16 06:23 PT 12.1 SECONDS (9.7-12.2) 10/02/16 11:22 INR 1.1 10/02/16 11:22 APTT 35 SECONDS (21-34) H 10/01/16 06:25 - Constitutional Appears: Non-toxic, No Acute Distress - Head Exam Head Exam: ATRAUMATIC, NORMOCEPHALIC - Eye Exam Eye Exam: EOMI, Normal appearance, PERRL Pupil Exam: NORMAL ACCOMODATION, PERRL - ENT Exam ENT Exam: Mucous Membranes Moist, Normal Oropharynx - Neck Exam Neck Exam: Normal Inspection - Respiratory Exam Respiratory Exam: Decreased Breath Sounds (bilateral lower lobes), Clear to Ausculation Bilateral, Wheezes, NORMAL BREATHING PATTERN. absent: Rales, Rhonchi - Cardiovascular Exam Cardiovascular Exam: REGULAR RHYTHM, +S1, +S2. absent: Gallop, Rubs, Murmur - GI/Abdominal Exam GI & Abdominal Exam: Soft, Normal Bowel Sounds. absent: Distended, Firm, Guarding, Tenderness - Extremities Exam Extremities Exam: Normal Capillary Refill. absent: Normal Inspection ( bilateral lower extremeity amputation), Tenderness - Neurological Exam Neurological Exam: Alert, Awake, CN II-XII Intact, Oriented x3 - Psychiatric Exam Psychiatric exam: Normal Affect, Normal Mood - Skin Skin Exam: Dry, Intact, Normal Color, Warm Assessment and Plan - Assessment and Plan (Free Text) Plan: Anemia * Nephrology consult, Dr. Saeed, help appreciated * GI consulted, Dr. Reyna, help appreicated * Likely from chronic kidney disease vs multiple myeloma vs GI bleed * Abdominal CT shows partial pericardial effusion, bilaterl pleural effusions, urinary bladder containing air [see full report] * FOBT positive * Patient on telemetry * Initial hgb 6.8 and transfused 3 units HGB currently 9.6 * Iron studies: Iron 51, TIBC 172, 30% sat, Ferritin 165/ * Protein electrophoresis studies show alpha 1 and 2 normal, low Beta 1 * Immunofixation shows faint IgG and Lambda against a dense polyclonal background may represent developing plasma cell disorder. * Beta-2 microglobulins 18.0 H * Procrit 10,000 unit SC MWF * NS 60 cc/hr Dyspnea * history of asthma and COPD * CXR: mild pulmonary congestion. small left pleural effusion vs infiltrate/ atelectasis (see full report) * Chest CT shows bilateral pleural effusions, bilateral lower lobe compresive atelectasis, small pericardial effusion with mild cardiomegaly [see full report] * Duonebs * Cefepime 1 gm IVPB Q12H * Azithromycin 500 mg IVPB daily * Lasix 40 mg PO BID UTI * Urine cultures grew gram negative rods * continue azithromycin and cefepime * ESBL + * contact precautions * ID consulted, follow up recs DM * ISS * Accuchecks * Insulin aspart 20 units SC ACB/15 units SC ACD HTN * Hydralazine 75 mg PO TID, held due to hypotension * Resume coreg 12.5 mg PO BID due to BP rising. HLD * Crestor 10 mg PO HS CKD * Nephrology consult, Dr. Saeed, help appreciated * obtaining 24 hr urine protein and creatinine clearance with urine immunofixation * urinalysis +LE * NS 60 cc/hr * Bun/Cr 60/3.0 * 24 hr urine protein 9864.0 Prophylactic Measures * chemical anticoagulation contraindicated to FOBT+ and anemia * Miralax 17 gm PO daily * Protonix 40 mg PO daily * Gabapentin 100 mg PO TID * Maalox 30 ml PO Q6H PRN * Tylenol 650 mg PO Q6H PRN * HHD with mod carb, renal Assesment and plan discussed with attending physician. <Ondina Esqueda V - Last Filed: 01/01/17 00:18> Objective - Vital Signs/Intake and Output Vital Signs (last 24 hours): Temp Pulse Resp BP Pulse Ox 98.9 F 92 H 20 121/46 L 100 10/07/16 16:00 10/07/16 16:00 10/07/16 16:00 10/07/16 16:00 10/07/16 16:00 - Labs Labs: 10/07/16 08:32 10/07/16 08:32 PT 12.1 SECONDS (9.7-12.2) 10/02/16 11:22 INR 1.1 10/02/16 11:22 APTT 35 SECONDS (21-34) H 10/01/16 06:25 Attending/Attestation - Attestation I have personally seen and examined this patient.: Yes I have fully participated in the care of the patient.: Yes I have reviewed all pertinent clinical information, including history, physical exam and plan: Yes
--- NOTE | 2016-10-03 21:34 | CON ---
DATE: 10/03/2016 REQUESTING PHYSICIAN: Dr. Esqueda. HISTORY OF PRESENT ILLNESS: This patient is a 61-year-old female. She was admitted here with shortn ess of breath on 09/30/16. I am asked to see her because of abnormal cultures. She is a 61-year-old. She is obese with a history of asthma, COPD, diabetes type 2, hypertension, hyperlipidemia, chronic kidney disease and bilateral lower extremity amputations. She was brought in by the ambulance from [facility] with worsening kidney functions and anemia. She had low hemoglobin. She is on oxyge n at this time. She denies any urinary symptoms. She has bilateral AKA and comes from the [facility] with shortness of breath and anemia. PAST MEDICAL HISTORY: Is significant for anemia, asthma, COPD, diabetes, hypertension, hyperlipidemi a, renal failure and bilateral lower extremity amputations. ALLERGIES: SHE IS ALLERGIC TO IMIPENEM AND OXYCODONE. PAST SURGICAL HISTORY: Bilateral AKA. FAMILY HISTORY: Not known SOCIAL HISTORY: She is an ex-smoker. No history of ETOH or drug abuse. She lives [facility]. REVIEW OF SYSTEMS: She denied any chills or any headaches. She has no ear, nose or throat problems. She did come in with shortness of breath. Denied any chest pain. She has been wheezing. She also had cough, dyspnea on exertion. No history of nausea, vomiting, or diarrhea. She denied any dysuri a. She is bedbound because of AKA. No muscle problems. No joint pains. No neurological problems. No psych problems reported. MEDICATIONS: I find she is on albuterol, hydroxide, aspirin, Zithromax, calcium acetate, Coreg , cefepime, Colace, Epogen, furosemide, gabapentin, hydralazine, insulin, lorazepam, pantoprazole, Cr estor, and vancomycin, which was just discontinued; she got a gram today. PHYSICAL EXAMINATION: VITAL SIGNS: She has a blood pressure of 180/75, pulse is 81. Temperature this morning was 98.2 and saturation 100%. GENERAL: She is alert, awake. Her voice is kind of hoarse, unable to comprehend much. She is on 2 liters nasal cannula. HEENT: Head is atraumatic, normocephalic. Appears . Her eyes are reacting to light. Tongue i s dry. NECK: Supple. FISH is flat. LUNGS: Have bilateral mild expiratory wheeze. HEART: S1, S2 is regular. No murmurs appreciated. ABDOMEN: Flabby, nontender, no guarding, no rigidity present. EXTREMITIES: Has bilateral AKA stumps. Has healed surgical scars and there is no drainage. BACK: I cannot evaluate , she is obese. LABORATORY DATA: White count is 7.1, hemoglobin 9.6, hematocrit 29.9, platelet count is 141. Sodium is 132, potassium is 4.3, chloride is 97, CO2 is 30, BUN is 60 and creatinine is 3, so she does have renal failure. She did get 1 dose of this. She had a chest CT done 2 days back and the chest CT/CA T scan shows moderate bilateral pleural effusion, bilateral lower lobe compressive atelectasis, small pericardial effusion with mild cardiomegaly, no lito pulmonary infiltrate, minimal bilateral apical emphysematous changes noted. She also had abdominal and pelvic CT that showed partially imaged mod erate pericardial effusion, moderate bilateral pleural effusion with consolidation, decompressed urin hussein bladder, so cystitis cannot be excluded. So, has as cystitis. At this time, her culture reports I want to go over. The culture shows GPCs and they have not been finalized, whether it is Staphyloc occus aureus or Staphylococcus epi. Actually there is a coagulase negative staph. She does not have any IV, she only has a Hep-Lock. The urine has E. coli, which is Tygacil sensitive, gentamicin sens itive, Bactrim sensitive, but she is in renal failure. So at this time, will cover her for the chronic obstructive pulmonary disease exacerbation. She did get 1 dose of vancomycin, but I think that is probably a contaminant. Will repeat the blood cultures again tomorrow. It may be due to her skin; she is obese and has comes from a longterm and she d oes not have any catheters and she is on cefepime and Zithromax at this time. Will discontinue the Z ithromax and discontinue the cefepime and get her on Tygacil at this time and will follow with you. Maggie López MD cc: [id number] TT: 10/03/2016 21:34:08 Confirmation # [id number] Dictation # [id number] dn
--- NOTE | 2016-10-03 22:51 | PN ---
DATE: 10/03/2016 REQUESTING PHYSICIAN: Dr. Ondina Esqueda REASON FOR FOLLOWUP: Acute renal failure on chronic kidney disease. HISTORY OF PRESENT ILLNESS: The patient is a 61-year-old elderly obese female with a history of longstanding hypertension, diabetes, COPD, asthma, chronic kidney disease, bilateral AKA. Was admitted with severe anemia. The patient is feeling much better this morning, not in acute distress and denies any headache, dizziness. Denies any chest pain, palpitations. Denies any fever or cough. PHYSICAL EXAMINATION: VITAL SIGNS: This morning as follows: Blood pressure 180/75, pulse 81, respirations 20, temperature 98. Height is 5 feet, weight is 207 pounds. GENERAL: The patient is a 61-year-old elderly female, not in acute distress. HEENT: Pupils normal, reactive to light and accommodation. Conjunctivae pink. Sclerae anicteric. Tongue is moist. NECK: Trachea is midline. LUNGS: Symmetric on both sides. Bilateral breath sounds present. Occasional basal crackles present. CARDIOVASCULAR: Boaz in the fifth intercostal space, midclavicular line. ABDOMEN: Normal in appearance, soft, tympanitic. No guarding, no rigidity. No hepatosplenomegaly. CENTRAL NERVOUS SYSTEM: The patient is alert, awake, oriented x 3. Nonfocal neuro examination. Cranial nerves II through XII grossly intact. Sensory and motor system is within normal limits. EXTREMITIES: Bilateral AKA. MEDICATIONS: Include Alphagan eyedrops, hydralazine 75 mg p.o. t.i.d., , Colace 100 mg p.o. t.i.d., Coreg 12.5 mg p.o. b.i.d., Crestor 10 mg at bedtime, DuoNeb inhaler, Ecotrin 81 mg p.o. daily, Florastor 250 mg p.o. b.i.d., Lasix 40 mg IV b.i.d., Neurontin 100 mg p.o. t.i.d., Novolin 70/30 at 20 units subQ a.c.b. and 50 units a.c.d., Procrit 10,000 units 3 times a week, Protonix 40 mg p.o. daily , tigecycline 50 mg q. 12 hours, and also Tylenol 650 p.o. q. 6 hours. LABORATORY DATA: Include as follows: As of 10/03/2016, WBC 7.1, hemoglobin 9.6 , hematocrit is 29.9, platelets 141. Sodium 132, potassium 4.3, chloride 97, CO2 of 30, BUN 60, creatinine 3.0. Glucose 125, calcium 7.7, total protein 5.9 , albumin is 2.8, globulin is 3.0. Urinalysis: Yellow, hazy, pH is 7, specific gravity 1009, protein 3+, glucose 1+, leukocyte esterase 3+, WBC 10, RBC 2 and squamous epithelial 6. A 24-hour urine collection: : 24-hour urine protein is 9.8 grams and creatinine clearance is about 12. Stool for leukocytes is negative and stool for C. diff toxin is negative. SUMMARY: The patient is a 61-year-old elderly female with hypertension , diabetes, chronic obstructive pulmonary disease, asthma, chronic kidney disease, anemia, who was admitted with worsening renal function and low H and H. 1. Renal failure, olddg-gv-awhmrig kidney disease. Renal function is stable. Etiology is not clear, rule out diabetic nephropathy, rule out monoclonal gammopathy of undetermined significance. 2. Anemia, etiology is not clear. Again cannot rule out secondary to chronic kidney disease, rule out iron deficiency anemia, rule out multiple myeloma, rule out monoclonal gammopathy of undetermined significance. 3. Congestive heart failure. 4. Hypertension We will continue Epogen 3 times a week and continue Lasix 40 mg q. 12 hours. We will follow with you. Thank you for allowing me to participate in your patient's care. Asha Saeed MD cc: [phone] TT: 10/03/2016 22:50:45 Confirmation # [id number] Dictation # [id number] ln MTDD
[2016-10-04] MEDS: Albuterol-Ipratrop 3 mg / 0.5 (3 ml) UD IH SCH ×6 (00:18→19:41)
--- NOTE | 2016-10-04 01:43 | CP.PCM.PN ---
Addendum entered and electronically signed by Kisha Seay 10/04/16 02:40: Patient had BP of 190/98 She was given stat dose of hydralazine 10mg IVP Repeat BP 150/63 Patient had no complaints of chest pain, palpitations, SOB Original Note: <DawoodKisha craig - Last Filed: 10/04/16 02:35> Subjective - Date & Time of Evaluation Date of Evaluation: 10/04/16 Time of Evaluation: 02:35 - Subjective Subjective: PGY1 Medicine note for Dr. Esqueda Patient seen and examined at bedside. Patient was complaining that the blood pressure cuff was hurting her arm a lot and was refusing to have her BP measured. Patient denied any chest pain, palpitations, SOB, cough, abdominal pain, nausea, vomiting, bowel/bladder complaints, pain in her legs. Objective - Vital Signs/Intake and Output Vital Signs (last 24 hours): Temp Pulse Resp BP Pulse Ox 98.3 F 86 20 177/72 H 100 10/03/16 23:30 10/03/16 23:30 10/03/16 23:30 10/03/16 23:30 10/03/16 23:30 Intake and Output: 10/03/16 10/04/16 18:59 06:59 Intake Total 1010 Balance 1010 - Medications Medications: Current Medications Acetaminophen (Tylenol 325mg Tab) 650 mg PO Q6H PRN PRN Reason: Fever >100.4 F Al Hydrox/Mg Hydrox/Simethicone (Maalox Plus 30 Ml) 30 ml PO Q6 PRN PRN Reason: Heartburn Albuterol/Ipratropium (Duoneb 3 Mg/0.5 Mg (3 Ml) Ud) 3 ml IH RQ4 [facility] Last Admin: 10/04/16 00:18 Dose: Not Given Aspirin (Ecotrin) 81 mg PO DAILY [facility] Brimonidine Tartrate (Alphagan 0.2% Opht) 0 ml OU TID [facility] Last Admin: 10/03/16 18:56 Dose: 1 drop Calcium Acetate (Phoslo) 667 mg PO AC [facility] Last Admin: 10/03/16 18:55 Dose: 667 mg Carvedilol (Coreg) 12.5 mg PO BID [facility] Last Admin: 10/03/16 18:55 Dose: 12.5 mg Docusate Sodium (Colace) 100 mg PO TID [facility] Last Admin: 10/03/16 19:15 Dose: 100 mg Dorzolamide HCl (Trusopt) 1 ml OU BID [facility] Last Admin: 10/03/16 18:56 Dose: 1 drop Epoetin Armin (Procrit) 10,000 unit SC MWF [facility] Stop: 10/06/16 09:01 Last Admin: 10/03/16 08:41 Dose: 10,000 unit Furosemide (Lasix) 40 mg IVP BID [facility] Last Admin: 10/03/16 18:56 Dose: 40 mg Gabapentin (Neurontin) 100 mg PO TID [facility] Last Admin: 10/03/16 18:55 Dose: 100 mg Hydralazine HCl (Apresoline) 75 mg PO TID [facility] Last Admin: 10/01/16 14:55 Dose: Not Given Tigecycline 50 mg/ Sodium (Chloride) 100 mls @ 100 mls/hr IVPB Q12H [facility] Insulin Aspart (Novolog Mix 70/30 (70/30 Units/Ml)) 15 units SC ACD [facility] Last Admin: 10/03/16 19:03 Dose: Not Given Insulin Aspart (Novolog Mix 70/30 (70/30 Units/Ml)) 20 units SC ACB [facility] Last Admin: 10/03/16 08:02 Dose: Not Given Insulin Human Regular (Novolin R) 0 unit SC ACHS [facility] PRN Reason: Protocol Last Admin: 10/03/16 22:03 Dose: Not Given Lorazepam (Ativan) 1 mg PO TID PRN PRN Reason: Anxiety Pantoprazole Sodium (Protonix Ec Tab) 40 mg PO 0630 [facility] Last Admin: 10/03/16 05:44 Dose: 40 mg Rosuvastatin Calcium (Crestor) 10 mg PO HS [facility] Last Admin: 10/03/16 22:02 Dose: 10 mg Saccharomyces Boulardii (Florastor) 250 mg PO BID [facility] Last Admin: 10/03/16 18:54 Dose: 250 mg - Labs Labs: 10/03/16 06:23 10/03/16 06:23 PT 12.1 SECONDS (9.7-12.2) 10/02/16 11:22 INR 1.1 10/02/16 11:22 APTT 35 SECONDS (21-34) H 10/01/16 06:25 - Constitutional Appears: Non-toxic, No Acute Distress - Head Exam Head Exam: NORMAL INSPECTION - Eye Exam Eye Exam: Normal appearance - ENT Exam ENT Exam: Mucous Membranes Moist - Neck Exam Neck Exam: Normal Inspection - Respiratory Exam Respiratory Exam: Wheezes, NORMAL BREATHING PATTERN. absent: Rales, Rhonchi - Cardiovascular Exam Cardiovascular Exam: REGULAR RHYTHM, +S1, +S2 - GI/Abdominal Exam GI & Abdominal Exam: Soft, Normal Bowel Sounds. absent: Tenderness - Extremities Exam Additional comments: b/l LE amputation - Neurological Exam Neurological Exam: Alert, Awake - Psychiatric Exam Psychiatric exam: Anxious - Skin Skin Exam: Dry, Intact, Normal Color, Warm Assessment and Plan - Assessment and Plan (Free Text) Assessment: 61 F with PMH anemia, asthma/COPD on O2, DM, HTN, HLD, CKD, bilateral lower extremity amputations was brought in by ambulance [facility] for severe anemia and worsening renal function Plan: Anemia * Nephrology consult, Dr. Saeed, help appreciated * GI consulted, Dr. Reyna, help appreicated * Likely from chronic kidney disease vs multiple myeloma vs GI bleed * Abdominal CT shows partial pericardial effusion, bilaterl pleural effusions, urinary bladder containing air [see full report] * FOBT positive * Patient on telemetry * Initial hgb 6.8 and transfused 3 units HGB currently 9.6 * Iron studies: Iron 51, TIBC 172, 30% sat, Ferritin 165/ * Protein electrophoresis studies show alpha 1 and 2 normal, low Beta 1 * Immunofixation shows faint IgG and Lambda against a dense polyclonal background may represent developing plasma cell disorder. * Beta-2 microglobulins 18.0 H * Procrit 10,000 unit SC MWF * NS 60 cc/hr Dyspnea * history of asthma and COPD * CXR: mild pulmonary congestion. small left pleural effusion vs infiltrate/ atelectasis (see full report) * Chest CT shows bilateral pleural effusions, bilateral lower lobe compresive atelectasis, small pericardial effusion with mild cardiomegaly [see full report] * Duonebs * Cefepime 1 gm IVPB Q12H * Azithromycin 500 mg IVPB daily * Lasix 40 mg PO BID UTI * Urine cultures grew gram negative rods * continue azithromycin and cefepime * ESBL + * contact precautions * ID consulted, follow up recs DM * ISS * Accuchecks * Insulin aspart 20 units SC ACB/15 units SC ACD HTN * Hydralazine 75 mg PO TID, held due to hypotension * Resume coreg 12.5 mg PO BID due to BP rising. HLD * Crestor 10 mg PO HS CKD * Nephrology consult, Dr. Saeed, help appreciated * obtaining 24 hr urine protein and creatinine clearance with urine immunofixation * urinalysis +LE * NS 60 cc/hr * Bun/Cr 60/3.0 * 24 hr urine protein 9864.0 Prophylactic Measures * chemical anticoagulation contraindicated to FOBT+ and anemia * Miralax 17 gm PO daily * Protonix 40 mg PO daily * Gabapentin 100 mg PO TID * Maalox 30 ml PO Q6H PRN * Tylenol 650 mg PO Q6H PRN * HHD with mod carb, renal <Ondina Esqueda V - Last Filed: 10/04/16 16:06> Objective - Vital Signs/Intake and Output Vital Signs (last 24 hours): Temp Pulse Resp BP Pulse Ox 98.1 F 85 20 158/72 H 100 10/04/16 13:25 10/04/16 13:25 10/04/16 08:08 10/04/16 13:25 10/04/16 08:08 Intake and Output: 10/04/16 10/04/16 06:59 18:59 Intake Total 370 Balance 370 - Medications Medications: Current Medications Acetaminophen (Tylenol 325mg Tab) 650 mg PO Q6H PRN PRN Reason: Fever >100.4 F Al Hydrox/Mg Hydrox/Simethicone (Maalox Plus 30 Ml) 30 ml PO Q6 PRN PRN Reason: Heartburn Last Admin: 10/04/16 10:34 Dose: 30 ml Albuterol/Ipratropium (Duoneb 3 Mg/0.5 Mg (3 Ml) Ud) 3 ml IH RQ4 [facility] Last Admin: 10/04/16 13:12 Dose: 3 ml Aspirin (Ecotrin) 81 mg PO DAILY [facility] Brimonidine Tartrate (Alphagan 0.2% Opht) 0 ml OU TID [facility] Last Admin: 10/04/16 10:38 Dose: 10 drop Calcium Acetate (Phoslo) 667 mg PO AC [facility] Last Admin: 10/04/16 08:20 Dose: 667 mg Carvedilol (Coreg) 12.5 mg PO BID [facility] Last Admin: 10/04/16 10:35 Dose: 12.5 mg Docusate Sodium (Colace) 100 mg PO TID [facility] Last Admin: 10/04/16 10:36 Dose: 100 mg Dorzolamide HCl (Trusopt) 1 ml OU BID [facility] Last Admin: 10/04/16 10:38 Dose: 1 drop Epoetin Armin (Procrit) 10,000 unit SC MWF [facility] Stop: 10/06/16 09:01 Last Admin: 10/03/16 08:41 Dose: 10,000 unit Furosemide (Lasix) 40 mg IVP BID [facility] Last Admin: 10/04/16 10:39 Dose: 40 mg Gabapentin (Neurontin) 100 mg PO TID [facility] Last Admin: 10/04/16 10:36 Dose: 100 mg Hydralazine HCl (Apresoline) 75 mg PO TID [facility] Last Admin: 10/01/16 14:55 Dose: Not Given Tigecycline 50 mg/ Sodium (Chloride) 100 mls @ 100 mls/hr IVPB Q12H [facility] Last Admin: 10/04/16 05:30 Dose: 100 mls/hr Insulin Aspart (Novolog Mix 70/30 (70/30 Units/Ml)) 15 units SC ACD [facility] Last Admin: 10/03/16 19:03 Dose: Not Given Insulin Aspart (Novolog Mix 70/30 (70/30 Units/Ml)) 20 units SC ACB [facility] Last Admin: 10/04/16 08:15 Dose: 20 units Insulin Human Regular (Novolin R) 0 unit SC ACHS [facility] PRN Reason: Protocol Last Admin: 10/04/16 08:15 Dose: 1 unit Lorazepam (Ativan) 1 mg PO TID PRN PRN Reason: Anxiety Pantoprazole Sodium (Protonix Ec Tab) 40 mg PO 0630 [facility] Last Admin: 10/04/16 05:31 Dose: 40 mg Rosuvastatin Calcium (Crestor) 10 mg PO HS [facility] Last Admin: 10/03/16 22:02 Dose: 10 mg Saccharomyces Boulardii (Florastor) 250 mg PO BID [facility] Last Admin: 10/04/16 10:37 Dose: 250 mg - Labs Labs: 10/04/16 08:30 10/04/16 08:30 PT 12.1 SECONDS (9.7-12.2) 10/02/16 11:22 INR 1.1 10/02/16 11:22 APTT 35 SECONDS (21-34) H 10/01/16 06:25 Attending/Attestation - Attestation I have personally seen and examined this patient.: Yes I have fully participated in the care of the patient.: Yes I have reviewed all pertinent clinical information, including history, physical exam and plan: Yes Notes (Text): Patient seen, examined, and case discussed with day-time resident. Patient seen at bedside. Patient reports she has had three bowel movements which looks like diarrhea and questionable black. Advised CP and nurse, next time she has diarrhea to collect samples for C. dif, occult blood, ova and parasite, and culture. It was reportable black?? Hemoglobin is stable given patient has required 3 units of PRBC transfusion during hospitalization. Patient does not have sacral decub per examination. Patient's AKA are clean, do not appear infected. Patient's upper extremities do not appear swollen. Assessment/Plan 1) Anemia * Nephrology consult, Dr. Saeed, help appreciated * GI consulted, Dr. Reyna, help appreciated * Abdominal/Pelvis PO Contrast CT (10/02/16): partial pericardial effusion, bilateral pleural effusions, b/l Compressive consolidations. Decompress urinary bladder (patient has bahena) * CT Chest (10/01/16): moderate b/l pleural effusion. B/L lower lobe compressive atelectasis. Small pericardial effusion with mild cardiomegaly. Coronary arterial calcification. No lito pulmonary infiltrate. Minimal b/l apical emphysematous change. * FOBT positive * Patient on telemetry * Iron studies: Iron 51, TIBC 172, 30% sat, Ferritin 165 * Procrit 10,000 unit SC MWF (2 out of 3) given * GI has signed off. Recommended for outpatient colonoscopy per 10/03 note * Patient has received 3 units of PRBC during hospitalization * Hgb on admission: 6.8---->10.4 2) Dyspnea * history of COPD * CXR: mild pulmonary congestion. small left pleural effusion vs infiltrate/ atelectasis (see full report) * Chest CT shows bilateral pleural effusions, bilateral lower lobe compresive atelectasis, small pericardial effusion with mild cardiomegaly [see full report] * Duonebs * Cefepime 1 gm IVPB Q12H * Azithromycin 500 mg IVPB daily * Lasix 40 mg IV BID 3) ESBL + UTI * Infectious disease (Dr. López) on board-->help appreciated * ESBL+ UTI (09/30/16) * Patient started on loading dose of Tigecycline 100mg IVX1, and Tigecycline 50mg IV Q12 hours (active since 10/03/16) * Florastor 250mg PO bid 4) Diabetes type 2 * Uncontrolled * Accuchecks QAC and HS * Novolog 70/30 20 units SC ACB/15 units SC ACD * Pending [id number] * Gabapentin 100 mg PO TID 5) Hypertension * Uncontrolled * Note: patient requires bigger blood pressure cuff and they use a smaller one which causes great pressure for her * Lasix 40mg IV BID * Coreg 12.5mg PO bid * Hydralazine held on 10/01 due to hypotension 6) Hyperlipidemia * Crestor 10mg POqHS * LDL< 30, HDL 42, chol: 101, T 7) Acute on Chronic Kidney Disease * Nephrology consult, Dr. Saeed, help appreciated * obtaining 24 hr urine protein and creatinine clearance with urine immunofixation * urinalysis +LE * NS 60 cc/hr * Bun/Cr 60/3.0 * 24 hr urine protein 9864.0 * Phoslo 667mg PO AC * EPO 10,000 units SC MWF 8) Bactermia * 09/30/16 18:45 Blood Culture: no growth after 3 days * 09/30/16 18:49 Blood culture: gram positive cocci-->given one time dose of Vancomycin 500mg IV X1 * 10/03/16 11:28 Blood culture: No growth after 24 hours * 10/03/16 15:30 Blood culture: No growth after 24 hours * Likely contamination 9) Congestive Heart Failure * Echocardiogram (10/02/16): left ventricle systolic function is normal, EF: 65- 70%, no aortic regurgitation is present, mitral regurgitation is mild, mild trciuspid regurgitation, mild pulmonary hypertension, mild pulmonic valvular regurgitation * Cardiology (Dr. Solano) on board help appreciated * Coreg 12.5mg PO bid * Crestor 10mg POqHS * Aspirin 81mg Po daily * Lasix 40mg IV BID * Chronic Diastolic dysfunction * No pericardial effusion noted on Echo. 10) Prophylactic Measures * chemical anticoagulation contraindicated to FOBT+ and anemia * Protonix 40 mg PO daily for GI ppx * Tylenol 650 mg PO Q6H PRN * HHD with mod carb, renal 11) Diarrhea * stop colace and miralax * Ordered for stool studies and C. dif
[2016-10-04] MEDS: Pantoprazole 40 mg EC Tab PO SCH (05:31)
[2016-10-04 07:06] LABS: CREATININE, 24 HOUR URINE 0.84 g/24 h (0.63-2.50); CREATININE, URINE 0.35 g/L
[2016-10-04] MEDS: (Novolog Mix 70/30) Insulin Aspart/Insulin Aspar 100 units/ml SC SCH ×2 (08:15→18:01)
[2016-10-04] MEDS: (Novolin R) Insulin Human Regular 100 units/ml vial SC SCH ×4 (08:15→21:45)
[2016-10-04 08:49] LABS: BASO % 0.5 % (0.0-2.0); EOS # 0.2 K/uL (0.0-0.7); EOS % 2.3 % (0.0-4.0); HEMATOCRIT 32.2 % (34.0-47.0); LYMPH # 0.5 K/uL (1.0-4.3); LYMPH % 6.1 % (20.0-40.0); MEAN CELL VOLUME 89.8 fL (81.0-99.0); MEAN CORPUSCULAR HEMOGLOBIN 29.1 pg (27.0-31.0); MEAN CORPUSCULAR HGB CONC 32.4 g/dL (33.0-37.0); MEAN PLATELET VOLUME 10.8 fL (7.2-11.7); MONO # 0.6 K/uL (0.0-0.8); MONO % 6.9 % (0.0-10.0); NRBC % 0.1 % (0.0-2.0); PLATELET COUNT 150 K/uL (130-400); RED CELL DISTRIBUTION WIDTH 15.2 % (11.5-14.5); WHITE BLOOD COUNT 8.5 K/uL (4.8-10.8)
[2016-10-04 09:09] LABS: POTASSIUM 4.2 mmol/L (3.6-5.2)
[2016-10-04 09:11] LABS: BILIRUBIN,TOTAL 0.5 mg/dL (0.2-1.3)
[2016-10-04 09:12] LABS: ALB/GLOB RATIO 0.9 (1.0-2.1); CALCIUM 8.1 mg/dl (8.6-10.4); TOTAL PROTEIN 6.3 g/dL (6.3-8.3)
[2016-10-04 09:17] LABS: MAGNESIUM 2.7 mg/dL (1.6-2.3); PHOSPHOROUS 4.9 mg/dL (2.5-4.5)
[2016-10-04 10:35] LABS: TOTAL CELLS COUNTED 100
[2016-10-04 10:36] LABS: NEUTROPHIL 87 % (50-75)
[2016-10-04] MEDS: Saccharomyces Boulardi 250 mg Cap PO SCH ×2 (10:37→18:00)
[2016-10-04] MEDS: Brimonidine 0.2% Opth Sol (5ml) OU SCH ×3 (10:38→17:59)
[2016-10-04] MEDS: Dorzolamide 2% Opht Sol 10ml OU SCH ×2 (10:38→17:59)
--- NOTE | 2016-10-04 11:23 | CP.PCM.PN ---
Subjective - Date & Time of Evaluation Date of Evaluation: 10/04/16 Time of Evaluation: 11:22 - Subjective Subjective: pt seen and examined, follow up consult is dictated #[id number] Objective - Vital Signs/Intake and Output Vital Signs (last 24 hours): Temp Pulse Resp BP Pulse Ox 98 F 90 20 182/74 H 100 10/04/16 08:08 10/04/16 08:08 10/04/16 08:08 10/04/16 10:39 10/04/16 08:08 Intake and Output: 10/04/16 10/04/16 06:59 18:59 Intake Total 370 Balance 370 - Medications Medications: Current Medications Acetaminophen (Tylenol 325mg Tab) 650 mg PO Q6H PRN PRN Reason: Fever >100.4 F Al Hydrox/Mg Hydrox/Simethicone (Maalox Plus 30 Ml) 30 ml PO Q6 PRN PRN Reason: Heartburn Last Admin: 10/04/16 10:34 Dose: 30 ml Albuterol/Ipratropium (Duoneb 3 Mg/0.5 Mg (3 Ml) Ud) 3 ml IH RQ4 [facility] Last Admin: 10/04/16 08:21 Dose: 3 ml Aspirin (Ecotrin) 81 mg PO DAILY [facility] Brimonidine Tartrate (Alphagan 0.2% Opht) 0 ml OU TID [facility] Last Admin: 10/04/16 10:38 Dose: 10 drop Calcium Acetate (Phoslo) 667 mg PO AC [facility] Last Admin: 10/04/16 08:20 Dose: 667 mg Carvedilol (Coreg) 12.5 mg PO BID [facility] Last Admin: 10/04/16 10:35 Dose: 12.5 mg Docusate Sodium (Colace) 100 mg PO TID [facility] Last Admin: 10/04/16 10:36 Dose: 100 mg Dorzolamide HCl (Trusopt) 1 ml OU BID [facility] Last Admin: 10/04/16 10:38 Dose: 1 drop Epoetin Armin (Procrit) 10,000 unit SC MWF [facility] Stop: 10/06/16 09:01 Last Admin: 10/03/16 08:41 Dose: 10,000 unit Furosemide (Lasix) 40 mg IVP BID [facility] Last Admin: 10/04/16 10:39 Dose: 40 mg Gabapentin (Neurontin) 100 mg PO TID [facility] Last Admin: 10/04/16 10:36 Dose: 100 mg Hydralazine HCl (Apresoline) 75 mg PO TID [facility] Last Admin: 10/01/16 14:55 Dose: Not Given Tigecycline 50 mg/ Sodium (Chloride) 100 mls @ 100 mls/hr IVPB Q12H [facility] Last Admin: 10/04/16 05:30 Dose: 100 mls/hr Insulin Aspart (Novolog Mix 70/30 (70/30 Units/Ml)) 15 units SC ACD [facility] Last Admin: 10/03/16 19:03 Dose: Not Given Insulin Aspart (Novolog Mix 70/30 (70/30 Units/Ml)) 20 units SC ACB [facility] Last Admin: 10/04/16 08:15 Dose: 20 units Insulin Human Regular (Novolin R) 0 unit SC ACHS [facility] PRN Reason: Protocol Last Admin: 10/04/16 08:15 Dose: 1 unit Lorazepam (Ativan) 1 mg PO TID PRN PRN Reason: Anxiety Pantoprazole Sodium (Protonix Ec Tab) 40 mg PO 0630 [facility] Last Admin: 10/04/16 05:31 Dose: 40 mg Rosuvastatin Calcium (Crestor) 10 mg PO HS [facility] Last Admin: 10/03/16 22:02 Dose: 10 mg Saccharomyces Boulardii (Florastor) 250 mg PO BID [facility] Last Admin: 10/04/16 10:37 Dose: 250 mg - Labs Labs: 10/04/16 08:30 10/04/16 08:30 PT 12.1 SECONDS (9.7-12.2) 10/02/16 11:22 INR 1.1 10/02/16 11:22 APTT 35 SECONDS (21-34) H 10/01/16 06:25
--- NOTE | 2016-10-04 15:13 | PN ---
DATE: 10/04/2016 SUBJECTIVE: The patient denies any chest pain or shortness of breath. PHYSICAL EXAMINATION: VITAL SIGNS: Blood pressure 158/72, heart rate 85, temperature 98.1, respirations 20. HEENT: Pale conjunctivae. CHEST: Clear. HEART: S1, S2 regular. EXTREMITIES: Bilateral above-knee amputation. LABORATORIES: Today's BUN and creatinine 61 and 3.0. Glucose is 176, calcium is 8.1. Magnesium is 2.7 and phosphorus 4.9, both magnesium and phosphorus are above normal. Today's hemoglobin and hemat ocrit 10.4 and 33.2, white count and platelet count are within normal limit. ASSESSMENT: 1. Advanced renal insufficiency. 2. Bilateral pleural effusions, compression atelectasis. 3. Hypertension. 4. Urinary tract infection . 5. Ischemic inferolateral EKG changes, myocardial infarction is ruled out. RECOMMENDATIONS: Continue hydralazine 75 mg b.i.d., Coreg 12.5 mg twice a day, Crestor 10 mg once a day, aspirin 81 mg once a day, Lasix 40 mg intravenous twice a day. The patient is being followed by his patient relations specialist, Dr. Saeed. Jaquan Solano MD cc: [id number] TT: 10/04/2016 15:12:35 Confirmation # [id number] Dictation # [id number] david
[2016-10-04] MEDS: Cefepime IV 1 gm in Dextrose 1 GM/50 ML BAG IVPB SCH (17:57)
[2016-10-04] MEDS: Lactobacillus Acidophilus 500 MU Cap PO SCH (18:02)
--- NOTE | 2016-10-04 19:44 | CP.PCM.PN ---
Subjective - Date & Time of Evaluation Date of Evaluation: 10/04/16 Time of Evaluation: 03:15 - Subjective Subjective: dictated Objective - Vital Signs/Intake and Output Vital Signs (last 24 hours): Temp Pulse Resp BP Pulse Ox 97 F L 81 20 196/82 H 100 10/04/16 15:00 10/04/16 15:00 10/04/16 15:00 10/04/16 18:01 10/04/16 15:00 - Medications Medications: Current Medications Acetaminophen (Tylenol 325mg Tab) 650 mg PO Q6H PRN PRN Reason: Fever >100.4 F Al Hydrox/Mg Hydrox/Simethicone (Maalox Plus 30 Ml) 30 ml PO Q6 PRN PRN Reason: Heartburn Last Admin: 10/04/16 10:34 Dose: 30 ml Albuterol/Ipratropium (Duoneb 3 Mg/0.5 Mg (3 Ml) Ud) 3 ml IH RQ4 [facility] Last Admin: 10/04/16 19:41 Dose: 3 ml Aspirin (Ecotrin) 81 mg PO DAILY [facility] Brimonidine Tartrate (Alphagan 0.2% Opht) 0 ml OU TID [facility] Last Admin: 10/04/16 17:59 Dose: 1 drop Calcium Acetate (Phoslo) 667 mg PO AC [facility] Last Admin: 10/04/16 18:01 Dose: 667 mg Carvedilol (Coreg) 12.5 mg PO BID [facility] Last Admin: 10/04/16 18:01 Dose: 12.5 mg Dorzolamide HCl (Trusopt) 1 ml OU BID [facility] Last Admin: 10/04/16 17:59 Dose: 1 drop Epoetin Armin (Procrit) 10,000 unit MN MWF [facility] Stop: 10/06/16 09:01 Last Admin: 10/03/16 08:41 Dose: 10,000 unit Furosemide (Lasix) 40 mg IVP BID [facility] Last Admin: 10/04/16 18:00 Dose: 40 mg Gabapentin (Neurontin) 100 mg PO TID [facility] Last Admin: 10/04/16 18:01 Dose: 100 mg Hydralazine HCl (Apresoline) 75 mg PO TID [facility] Last Admin: 10/04/16 18:00 Dose: 75 mg Tigecycline 50 mg/ Sodium (Chloride) 100 mls @ 100 mls/hr IVPB Q12H [facility] Last Admin: 10/04/16 17:58 Dose: 100 mls/hr Cefepime HCl (Maxipime Iv 1 Gm Premix) 1 gm in 50 mls @ 100 mls/hr IVPB Q24H [facility] Last Admin: 10/04/16 17:57 Dose: 100 mls/hr Insulin Aspart (Novolog Mix 70/30 (70/30 Units/Ml)) 15 units SC ACD [facility] Last Admin: 10/04/16 18:01 Dose: Not Given Insulin Aspart (Novolog Mix 70/30 (70/30 Units/Ml)) 20 units SC ACB [facility] Last Admin: 10/04/16 08:15 Dose: 20 units Insulin Human Regular (Novolin R) 0 unit SC ACHS [facility] PRN Reason: Protocol Last Admin: 10/04/16 17:58 Dose: 1 unit Lactobacillus Acidophilus (Bacid Acidophilus) 1 cap PO BID [facility] Last Admin: 10/04/16 18:02 Dose: 1 cap Lorazepam (Ativan) 1 mg PO TID PRN PRN Reason: Anxiety Pantoprazole Sodium (Protonix Ec Tab) 40 mg PO 0630 [facility] Last Admin: 10/04/16 05:31 Dose: 40 mg Rosuvastatin Calcium (Crestor) 10 mg PO HS [facility] Last Admin: 10/03/16 22:02 Dose: 10 mg Saccharomyces Boulardii (Florastor) 250 mg PO BID [facility] Last Admin: 10/04/16 18:00 Dose: 250 mg - Labs Labs: 10/04/16 08:30 10/04/16 08:30 PT 12.1 SECONDS (9.7-12.2) 10/02/16 11:22 INR 1.1 10/02/16 11:22 APTT 35 SECONDS (21-34) H 10/01/16 06:25
[2016-10-05] MEDS: Albuterol-Ipratrop 3 mg / 0.5 (3 ml) UD IH SCH ×6 (01:33→19:26)
[2016-10-05] MEDS: Pantoprazole 40 mg EC Tab PO SCH (06:26)
[2016-10-05 07:50] LABS: BASO % 0.6 % (0.0-2.0); EOS # 0.2 K/uL (0.0-0.7); EOS % 2.8 % (0.0-4.0); HEMATOCRIT 32.9 % (34.0-47.0); LYMPH # 0.8 K/uL (1.0-4.3); LYMPH % 10.8 % (20.0-40.0); MEAN CELL VOLUME 89.8 fL (81.0-99.0); MEAN CORPUSCULAR HEMOGLOBIN 28.9 pg (27.0-31.0); MEAN CORPUSCULAR HGB CONC 32.2 g/dL (33.0-37.0); MEAN PLATELET VOLUME 10.8 fL (7.2-11.7); MONO # 0.6 K/uL (0.0-0.8); MONO % 8.2 % (0.0-10.0); NRBC % 0.1 % (0.0-2.0); RED CELL DISTRIBUTION WIDTH 15.3 % (11.5-14.5); WHITE BLOOD COUNT 7.6 K/uL (4.8-10.8)
[2016-10-05 08:09] LABS: POTASSIUM 3.9 mmol/L (3.6-5.2)
[2016-10-05 08:11] LABS: ALB/GLOB RATIO 0.9 (1.0-2.1); BILIRUBIN,TOTAL 0.5 mg/dL (0.2-1.3); CALCIUM 8.6 mg/dl (8.6-10.4); PHOSPHOROUS 5.4 mg/dL (2.5-4.5); TOTAL PROTEIN 6.1 g/dL (6.3-8.3)
[2016-10-05 08:12] LABS: MAGNESIUM 2.6 mg/dL (1.6-2.3)
[2016-10-05] MEDS: (Novolin R) Insulin Human Regular 100 units/ml vial SC SCH ×4 (08:20→23:08)
[2016-10-05] MEDS: (Novolog Mix 70/30) Insulin Aspart/Insulin Aspar 100 units/ml SC SCH ×2 (08:25→18:28)
[2016-10-05] MEDS: Lactobacillus Acidophilus 500 MU Cap PO SCH ×2 (10:03→18:27)
[2016-10-05] MEDS: Dorzolamide 2% Opht Sol 10ml OU SCH ×2 (10:05→23:07)
[2016-10-05] MEDS: Brimonidine 0.2% Opth Sol (5ml) OU SCH ×3 (10:06→23:07)
[2016-10-05] MEDS: Saccharomyces Boulardi 250 mg Cap PO SCH ×2 (10:06→18:26)
[2016-10-05] MEDS: Cefepime IV 1 gm in Dextrose 1 GM/50 ML BAG IVPB SCH (16:10)
--- NOTE | 2016-10-05 17:50 | CP.PCM.PN ---
<Bhanu Aguilar - Last Filed: 10/05/16 18:09> Subjective - Date & Time of Evaluation Date of Evaluation: 10/05/16 Time of Evaluation: 17:45 - Subjective Subjective: Medicine progress note. Attending: Dr. Esqueda Pt seen and examined at bedside. No acute distress. pt continues to have diarrhea, multiple episodes. Non bloody. Will give immodium. Denies fevers, chills, vomiting, syncope, cp, sob. Objective - Vital Signs/Intake and Output Vital Signs (last 24 hours): Temp Pulse Resp BP Pulse Ox 99.4 F 88 20 142/74 99 10/05/16 16:00 10/05/16 16:00 10/05/16 16:00 10/05/16 16:00 10/05/16 16:00 Intake and Output: 10/05/16 10/05/16 06:59 18:59 Intake Total 390 100 Balance 390 100 - Medications Medications: Current Medications Acetaminophen (Tylenol 325mg Tab) 650 mg PO Q6H PRN PRN Reason: Fever >100.4 F Last Admin: 10/05/16 10:04 Dose: 650 mg Al Hydrox/Mg Hydrox/Simethicone (Maalox Plus 30 Ml) 30 ml PO Q6 PRN PRN Reason: Heartburn Last Admin: 10/04/16 10:34 Dose: 30 ml Albuterol/Ipratropium (Duoneb 3 Mg/0.5 Mg (3 Ml) Ud) 3 ml IH RQ4 [facility] Last Admin: 10/05/16 15:40 Dose: 3 ml Aspirin (Ecotrin) 81 mg PO DAILY [facility] Brimonidine Tartrate (Alphagan 0.2% Opht) 0 ml OU TID [facility] Last Admin: 10/05/16 13:44 Dose: 1 drop Calcium Acetate (Phoslo) 667 mg PO AC [facility] Last Admin: 10/05/16 12:05 Dose: 667 mg Carvedilol (Coreg) 12.5 mg PO BID [facility] Last Admin: 10/05/16 10:03 Dose: 12.5 mg Dorzolamide HCl (Trusopt) 1 ml OU BID [facility] Last Admin: 10/05/16 10:05 Dose: 1 drop Epoetin Armin (Procrit) 10,000 unit SC F [facility] Stop: 10/06/16 09:01 Last Admin: 10/03/16 08:41 Dose: 10,000 unit Furosemide (Lasix) 40 mg IVP BID [facility] Last Admin: 10/05/16 10:01 Dose: 40 mg Gabapentin (Neurontin) 100 mg PO TID [facility] Last Admin: 10/05/16 13:42 Dose: 100 mg Hydralazine HCl (Apresoline) 75 mg PO TID [facility] Last Admin: 10/05/16 13:41 Dose: 75 mg Tigecycline 50 mg/ Sodium (Chloride) 100 mls @ 100 mls/hr IVPB Q12H [facility] Last Admin: 10/05/16 06:25 Dose: 100 mls/hr Cefepime HCl (Maxipime Iv 1 Gm Premix) 1 gm in 50 mls @ 100 mls/hr IVPB Q24H [facility] Last Admin: 10/05/16 16:10 Dose: 100 mls/hr Insulin Aspart (Novolog Mix 70/30 (70/30 Units/Ml)) 15 units SC ACD [facility] Last Admin: 10/04/16 18:01 Dose: Not Given Insulin Aspart (Novolog Mix 70/30 (70/30 Units/Ml)) 20 units SC ACB [facility] Last Admin: 10/05/16 08:25 Dose: 20 units Insulin Human Regular (Novolin R) 0 unit SC ACHS [facility] PRN Reason: Protocol Last Admin: 10/05/16 12:05 Dose: 1 unit Lactobacillus Acidophilus (Bacid Acidophilus) 1 cap PO BID [facility] Last Admin: 10/05/16 10:03 Dose: 1 cap Loperamide HCl (Imodium) 2 mg PO QID PRN PRN Reason: Diarrhea Last Admin: 10/05/16 11:58 Dose: 2 mg Lorazepam (Ativan) 1 mg PO TID PRN PRN Reason: Anxiety Pantoprazole Sodium (Protonix Ec Tab) 40 mg PO 0630 [facility] Last Admin: 10/05/16 06:26 Dose: 40 mg Rosuvastatin Calcium (Crestor) 10 mg PO HS [facility] Last Admin: 10/04/16 21:33 Dose: 10 mg Saccharomyces Boulardii (Florastor) 250 mg PO BID [facility] Last Admin: 10/05/16 10:06 Dose: 250 mg - Labs Labs: 10/05/16 07:38 10/05/16 07:38 PT 12.1 SECONDS (9.7-12.2) 10/02/16 11:22 INR 1.1 10/02/16 11:22 APTT 35 SECONDS (21-34) H 10/01/16 06:25 - Constitutional Appears: Non-toxic, No Acute Distress - Head Exam Head Exam: ATRAUMATIC, NORMAL INSPECTION, NORMOCEPHALIC - Eye Exam Eye Exam: EOMI - ENT Exam ENT Exam: Mucous Membranes Moist - Neck Exam Neck Exam: Full ROM, Normal Inspection - Respiratory Exam Respiratory Exam: NORMAL BREATHING PATTERN. absent: Respiratory Distress - Cardiovascular Exam Cardiovascular Exam: REGULAR RHYTHM, +S1, +S2 - GI/Abdominal Exam GI & Abdominal Exam: Distended, Normal Bowel Sounds. absent: Tenderness - Extremities Exam Additional comments: B/L amputations - Back Exam Back Exam: NORMAL INSPECTION - Neurological Exam Neurological Exam: Alert, Awake - Psychiatric Exam Psychiatric exam: Agitated - Skin Skin Exam: Dry, Intact, Normal Color, Warm Assessment and Plan - Assessment and Plan (Free Text) Assessment: This is a 61 year old female with past medical hx of anemia, asthma/COPD on O2 , DM, HTN, HLD, CKD, bilateral lower extremity amputations was brought in by ambulance from detention for severe anemia and worsening renal function Anemia * Nephrology consult, Dr. Saeed, help appreciated * GI consulted, Dr. Reyna, help appreicated * Likely from chronic kidney disease vs multiple myeloma vs GI bleed * Abdominal CT shows partial pericardial effusion, bilaterl pleural effusions, urinary bladder containing air [see full report] * FOBT positive * Patient on telemetry * Initial hgb 6.8 and transfused 3 units HGB currently stable * Iron studies: Iron 51, TIBC 172, 30% sat, Ferritin 165 * Protein electrophoresis studies show alpha 1 and 2 normal, low Beta 1 * Immunofixation shows faint IgG and Lambda against a dense polyclonal background may represent developing plasma cell disorder. * Beta-2 microglobulins 18.0 H * Procrit 10,000 unit SC MWF * NS 60 cc/hr Dyspnea * history of asthma and COPD * CXR: mild pulmonary congestion. small left pleural effusion vs infiltrate/ atelectasis (see full report) * Chest CT shows bilateral pleural effusions, bilateral lower lobe compresive atelectasis, small pericardial effusion with mild cardiomegaly [see full report] * Duonebs * Cefepime 1 gm IVPB daily day 2 * Lasix 40 mg PO BID UTI * Urine cultures grew gram negative rods * continue cefepime , tigecycline 50 mg q 12 * ESBL + * contact precautions * ID consulted, follow up recs * f/u repeat urine culture straight cath DM * ISS * Accuchecks * Insulin aspart 20 units SC ACB/15 units SC ACD HTN * Hydralazine 75 mg PO TID, held due to hypotension * Resume coreg 12.5 mg PO BID due to BP rising. HLD * Crestor 10 mg PO HS CKD * Nephrology consult, Dr. Saeed, help appreciated * obtaining 24 hr urine protein and creatinine clearance with urine immunofixation * urinalysis +LE * 24 hr urine protein 9864.0 Prophylactic Measures * chemical anticoagulation contraindicated to FOBT+ and anemia * Protonix 40 mg PO daily * will add imodium for diarrhea * Gabapentin 100 mg PO TID * Maalox 30 ml PO Q6H PRN * Tylenol 650 mg PO Q6H PRN * HHD with mod carb, renal <Ondina Esqueda V - Last Filed: 01/01/17 00:18> Objective - Vital Signs/Intake and Output Vital Signs (last 24 hours): Temp Pulse Resp BP Pulse Ox 98.9 F 92 H 20 121/46 L 100 10/07/16 16:00 10/07/16 16:00 10/07/16 16:00 10/07/16 16:00 10/07/16 16:00 - Labs Labs: 10/07/16 08:32 10/07/16 08:32 PT 12.1 SECONDS (9.7-12.2) 10/02/16 11:22 INR 1.1 10/02/16 11:22 APTT 35 SECONDS (21-34) H 10/01/16 06:25 Attending/Attestation - Attestation I have personally seen and examined this patient.: Yes I have fully participated in the care of the patient.: Yes I have reviewed all pertinent clinical information, including history, physical exam and plan: Yes
--- NOTE | 2016-10-05 17:51 | PN ---
DATE: 10/05/2016 SUBJECTIVE: The patient is cheerful with her Mother's Day gifts and the daughter is at the bedside. She denies any chest pain. She complains of right earache. PHYSICAL EXAMINATION: VITAL SIGNS: Blood pressure 141/ , heart rate 78, temperature 98.8, respiration 18. HEENT: Pale conjunctivae. CHEST: Clear. HEART: S1, S2 regular. EXTREMITIES: Bilateral above-knee amputation. LABORATORIES: Hemoglobin and hematocrit 10.6 and 32.9, white count and platelet count are within nor mal limits. Today's 67 and 2.9. Glucose 128. ASSESSMENT: 1. Anemia, status post packed RBC transfusion. 2. Chronic renal insufficiency. 3. Abnormal EKG with evidence of inferolateral ischemia. Myocardial infarction is ruled out. 4. Peripheral vascular disease, status post bilateral above-knee amputation. 5. Right earache. 6. Urinary tract infection. RECOMMENDATIONS: Continue current hydralazine 75 mg t.i.d., Coreg 12.5 mg twice a day, aspirin 81 mg once a day, Lasix 40 mg intravenous twice a day, Protonix 40 mg p.o. once a day. I requested ENT co nsultation from Dr. Irizarry and discussed the case with the patient's daughter at the bedside. Jaquan Solano MD cc: [id number] TT: 10/05/2016 17:50:52 Confirmation # [id number] Dictation # [id number] mn
[2016-10-06] MEDS: Albuterol-Ipratrop 3 mg / 0.5 (3 ml) UD IH SCH (01:04)
[2016-10-06] MEDS: Pantoprazole 40 mg EC Tab PO SCH (06:17)
[2016-10-06 07:11] LABS: BASO # 0.1 K/uL (0.0-0.2); EOS # 0.2 K/uL (0.0-0.7); EOS % 2.3 % (0.0-4.0); LYMPH % 10.1 % (20.0-40.0); MEAN CELL VOLUME 89.1 fL (81.0-99.0); MEAN CORPUSCULAR HEMOGLOBIN 29.2 pg (27.0-31.0); MEAN CORPUSCULAR HGB CONC 32.7 g/dL (33.0-37.0); MEAN PLATELET VOLUME 10.6 fL (7.2-11.7); MONO # 0.8 K/uL (0.0-0.8); MONO % 7.9 % (0.0-10.0); NRBC % 0.1 % (0.0-2.0); RED CELL DISTRIBUTION WIDTH 15.5 % (11.5-14.5); WHITE BLOOD COUNT 9.5 K/uL (4.8-10.8)
--- NOTE | 2016-10-06 07:26 | PN ---
DATE: 10/04/2016 SUBJECTIVE: The patient is complaining of having diarrhea and scared to eat, but she denies any urinary symptoms. Her voice is kind of hoarse, cannot make out much. PHYSICAL EXAMINATION Much: VITAL SIGNS: T-max is 97.1, pulse is 81, blood pressure is 147/62, respirations are 20. HEENT: Head is atraumatic, normocephalic. NECK: Supple. LUNGS: Clear. No crackles or rales heard. HEART: S1, S2 is _regular____. ABDOMEN: Soft, flabby, nontender. EXTREMITIES: She has bilateral AKA's. LABORATORY DATA: White count is 8.5, hemoglobin 10.4, hematocrit 32.2, platelet count is 150. Chemistry shows sodium 135, potassium 4.2, chloride 96, CO2 is 29, BUN is 61, creatinine is 3.0. So she has renal insufficiency. Clostridium difficile has been negative. It has been checked twice and she is being worked up for gammopathy. I found her culture; her culture showed blood culture was Staphylococcus epidermidis and the repeat cultures are negative. I think it was probably a contaminant. She has a peripheral IV. 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 I am still waiting for the ID and sensitivity. Hence, I have left the Maxipime on as it would cover salmonella and salmonella-type organisms if that is growing in the stool and at this time she is on 2 antibiotics. Will put her on Bacid and will follow further and she remains with renal insufficiency, bilateral BKA and is being worked up for monoclonal gammopathy of undetermined significance. Maggie López MD cc: [id number] TT: 10/04/2016 20:08:21 Confirmation # [id number] Dictation # [id number] luis miguel SAMS
[2016-10-06 07:27] LABS: POTASSIUM 3.7 mmol/L (3.6-5.2)
--- NOTE | 2016-10-06 07:28 | PN ---
DATE: 10/04/2016 The patient is located in room 667, bed B. REQUESTED BY: Dr. Ondina Arellano REASON FOR RENAL CONSULTATION: Followup of CKD for further evaluation. HISTORY OF PRESENT ILLNESS: The patient is a 61-year-old elderly obese female with a history of longstanding hypertension, diabetes, CHF, anemia, COPD, asthma and bilateral amputations who was admitted with anemia and increased BUN and creatinine. The patient received 2 units of packed RBC since she was admitted to the hospital. H and H is stable. The patient is not in acute distress. The patient is also being treated for CHF with Lasix. The patient is not in acute distress. No chest pain, no palpitations, no fever and no cough. Complains of loose bowel movements. PHYSICAL EXAMINATION: VITAL SIGNS: This afternoon, blood pressure 182/74, pulse 90, respirations 20, temperature 98.1 and saturation 100% on 2 liters nasal cannula. Height 5 feet and weight is 207 pounds. GENERAL: The patient is a 61-year-old elderly female with bilateral amputations , not in distress. HEENT: Pupils normal, reactive to light and accommodation. Conjunctivae pink. Sclerae anicteric. Tongue is moist. NECK: Trachea is midline. LUNGS: Symmetric on both sides. Bilateral breath sounds present. Occasional basal crackles present. CARDIOVASCULAR: [place] in the fifth intercostal space midclavicular line. S1 and S2 audible. No murmur or gallop. ABDOMEN: Normal in appearance. Soft and tympanic. No guarding and no rigidity. No hepatosplenomegaly. CENTRAL NERVOUS SYSTEM: The patient is alert, awake, oriented x 3 and nonfocal on examination. Sensory and motor system is within normal limits. EXTREMITIES: Bilateral AKA. CURRENT MEDICATIONS: Include as follows:, hydralazine 75 mg p.o. t.i.d., ASA81 mg p.o. t.i.d., , Coreg 12.5 mg b.i.d., Crestor 10 mg p.o. at bedtime, DuoNeb inhaler, Ecotrin 81 mg p.o. daily, Florastor 250 mg p.o. b.i.d., Lasix 40 mg IV b.i.d., Maalox and also Neurontin 100 mg p.o. t.i.d., Novolin R for sliding scale, NovoLog 70/30 15 units subcu a.c.d. and PhosLo 667 mg p.o., Procrit 10,000 units 3 times a week, Protonix 40 mg daily, tigecycline, Tylenol. LABORATORY DATA: Include as follows: As of 10/04/2016 WBC 8.5, hemoglobin 10.5 , hematocrit is 32.2 and platelets 150. Sodium 135, potassium is 4.2, chloride 96, CO2 29, BUN 61, glucose 176, calcium 8.1, phosphorus 4.9 and magnesium 2.7. Total bilirubin 0.5, AST 16, ALT 15, alk phos is 57, total protein 6.3, albumin is 3 and vancomycin level is 13.7. Stool for occult blood is positive. Stool C. diff toxin is negative. As of 09/30/2016, urine culture is positive for E. coli and blood culture positive for Staph aureus and coag negative. Urine culture positive for E. coli and sensitive to Bactrim and also nitrofurantoin, gentamicin and tigecycline. A repeat blood culture as of 10/03 is negative day #1 and urine culture positive for multiple species and stool culture, SUMMARY: The patient is a 61-year-old obese female with hypertension, diabetes, anemia, chronic kidney disease and asthma who was admitted with low H and H and increased BUN and creatinine. 1. Acute renal failure on chronic kidney disease: Renal function is slightly better. The etiology is not clear, rule out diabetic nephropathy with massive proteinuria. Rule out MGUS and multiple myeloma also. 2. Anemia secondary to CKD, rule out multiple myeloma, rule out MGUS. 3. CHF. 4. Hypertension. 5. Proteinuria, rule out DM nephropathy versus chronic GN. Workup is so far within normal limits. Serological workup, hepatitis B and C. Continue gentle IV hydration. Continue gentle diuresis. Continue IV antibiotics as per the ID recommendations. Consider bone marrow biopsy when the patient is stable. Will follow with you. Thank you for allowing me to participate in your patient's care. Asha Saeed MD cc: [phone] TT: 10/04/2016 22:44:19 Confirmation # [id number] Dictation # [id number] sn MTDD
[2016-10-06 07:30] LABS: ALB/GLOB RATIO 0.8 (1.0-2.1); BILIRUBIN,TOTAL 0.5 mg/dL (0.2-1.3); PHOSPHOROUS 5.2 mg/dL (2.5-4.5); TOTAL PROTEIN 5.5 g/dL (6.3-8.3)
[2016-10-06 07:31] LABS: CALCIUM 7.9 mg/dl (8.6-10.4); MAGNESIUM 2.3 mg/dL (1.6-2.3)
[2016-10-06] MEDS: (Novolog Mix 70/30) Insulin Aspart/Insulin Aspar 100 units/ml SC SCH ×2 (08:36→17:47)
--- NOTE | 2016-10-06 08:36 | CON ---
DATE: 10/06/2016 REASON FOR CONSULTATION: Hearing loss history. This is a 61-year-old female with a multiple-year history of hearing loss in both ears, constant and moderate in intensity. No ringing. The patient states that she has had pain in the right ear for th e past 10 days, which has resolved. There is no pain now. The pain was constant and mild to moderat e in intensity. PAST MEDICAL HISTORY: As noted in the chart by me. MEDICATIONS: As noted in the chart by me. PHYSICAL EXAMINATION: HEAD: Atraumatic, normocephalic. FACE: Good facial movements bilaterally. CONSTITUTIONAL: Well-developed, well-nourished. COMMUNICATION: The patient communicates very appropriately. However, the patient has history of a C VA. Therefore, she speaks slowly. EXTERNAL NOSE AND EARS: No masses, no lesions, no erythema, no edema. EARS: Wax noted in both ear canals obstructing the TM partially. However, TM can be viewed. There is no fluid noted behind the TM and ____ obstructed view. INTERNAL NOSE: Deviated septum. No masses, no lesions, no erythema, no edema. ORAL CAVITY, OROPHARYNX: No masses, no lesions, no erythema, no edema. LIPS, GUMS: No masses, no lesions, no erythema, no edema. NECK: Supple. THYROID: No thyromegaly. No goiter. LYMPH NODES: No lymphadenopathy of the neck. ASSESSMENT: 1. Hearing loss. 2. Ear wax. 3. Deviated septum. PLAN: The patient is to follow up in the office for ear wax removal and hearing test as an outpatien t. Yogi Irizarry MD cc: [phone] TT: 10/06/2016 08:36:04 Confirmation # [id number] Dictation # [id number] david
[2016-10-06] MEDS: EPOETIN ALFA 10,000 UNIT/ML ML SC SCH (08:37)
[2016-10-06] MEDS: (Novolin R) Insulin Human Regular 100 units/ml vial SC SCH ×4 (08:37→22:00)
[2016-10-06] MEDS: Lactobacillus Acidophilus 500 MU Cap PO SCH ×2 (10:25→18:08)
[2016-10-06] MEDS: Saccharomyces Boulardi 250 mg Cap PO SCH ×2 (10:26→18:07)
[2016-10-06] MEDS: Brimonidine 0.2% Opth Sol (5ml) OU SCH ×3 (10:27→18:06)
[2016-10-06] MEDS: Dorzolamide 2% Opht Sol 10ml OU SCH ×2 (10:28→18:07)
--- NOTE | 2016-10-06 10:56 | RAD ---
HISTORY: effusions COMPARISON: Comparison made with prior chest radiograph 09/30/2016. Comparison also made with CT scan chest 10/01/2016 FINDINGS: LUNGS: Mild pulmonary venous congestive changes. Mild early bilateral lower lobe atelectasis/infiltrate changes and small bilateral effusions. In the PLEURA: No apparent pneumothorax apparent. CARDIOVASCULAR: Heart appears enlarged. OSSEOUS STRUCTURES: No significant abnormalities. VISUALIZED UPPER ABDOMEN: Normal. OTHER FINDINGS: None. IMPRESSION: Mild pulmonary vascular congestive changes. Mild bilateral lower lobe early atelectasis/infiltrate changes and small bilateral effusions. Cardiomegaly.
[2016-10-06 15:10] LABS: RBC URINE 3 /hpf (0-3); URINE BACTERIA RARE (<OCC); URINE BILIRUBIN NEGATIVE (NEGATIVE); URINE BLOOD NEGATIVE (NEGATIVE); URINE COLOR Yellow (YELLOW); URINE GLUCOSE (UA) 1+ mg/dL (Normal); URINE HYALINE CAST 0-2 /lpf (0-2); URINE KETONE NEGATIVE (NEGATIVE); URINE LEUKOCYTE ESTERASE 1+ Leu/uL (Negative); URINE PROTEIN 2+ mg/dL (NEGATIVE); URINE UROBILINOGEN NORMAL mg/dL (0.2-1.0); WBC URINE 12 /hpf (0-5)
[2016-10-06 15:55] VITALS: RESP 20
--- NOTE | 2016-10-06 16:17 | CP.PCM.PN ---
Subjective - Date & Time of Evaluation Date of Evaluation: 10/06/16 Time of Evaluation: 04:00 - Subjective Subjective: dictated Objective - Vital Signs/Intake and Output Vital Signs (last 24 hours): Temp Pulse Resp BP Pulse Ox 98.4 F 69 20 100/60 100 10/06/16 15:51 10/06/16 15:51 10/06/16 15:51 10/06/16 15:51 10/06/16 15:51 Intake and Output: 10/06/16 10/06/16 06:59 18:59 Intake Total 390 Balance 390 - Medications Medications: Current Medications Acetaminophen (Tylenol 325mg Tab) 650 mg PO Q6H PRN PRN Reason: Fever >100.4 F Last Admin: 10/05/16 10:04 Dose: 650 mg Al Hydrox/Mg Hydrox/Simethicone (Maalox Plus 30 Ml) 30 ml PO Q6 PRN PRN Reason: Heartburn Last Admin: 10/04/16 10:34 Dose: 30 ml Aspirin (Ecotrin) 81 mg PO DAILY [facility] Brimonidine Tartrate (Alphagan 0.2% Opht) 0 ml OU TID [facility] Last Admin: 10/06/16 14:24 Dose: 1 drop Calcium Acetate (Phoslo) 667 mg PO AC [facility] Last Admin: 10/06/16 12:37 Dose: 667 mg Carvedilol (Coreg) 12.5 mg PO BID [facility] Last Admin: 10/06/16 10:26 Dose: 12.5 mg Dorzolamide HCl (Trusopt) 1 ml OU BID [facility] Last Admin: 10/06/16 10:28 Dose: 1 drop Furosemide (Lasix) 40 mg IVP BID [facility] Last Admin: 10/06/16 10:28 Dose: 40 mg Gabapentin (Neurontin) 100 mg PO TID [facility] Last Admin: 10/06/16 14:24 Dose: 100 mg Hydralazine HCl (Apresoline) 75 mg PO TID [facility] Last Admin: 10/06/16 14:24 Dose: 75 mg Tigecycline 50 mg/ Sodium (Chloride) 100 mls @ 100 mls/hr IVPB Q12H [facility] Last Admin: 10/06/16 06:17 Dose: 100 mls/hr Insulin Aspart (Novolog Mix 70/30 (70/30 Units/Ml)) 15 units SC ACD [facility] Last Admin: 10/05/16 18:28 Dose: Not Given Insulin Aspart (Novolog Mix 70/30 (70/30 Units/Ml)) 20 units SC ACB [facility] Last Admin: 10/06/16 08:36 Dose: 20 units Insulin Human Regular (Novolin R) 0 unit SC ACHS [facility] PRN Reason: Protocol Last Admin: 10/06/16 11:52 Dose: Not Given Lactobacillus Acidophilus (Bacid Acidophilus) 1 cap PO BID [facility] Last Admin: 10/06/16 10:25 Dose: 1 cap Loperamide HCl (Imodium) 2 mg PO QID PRN PRN Reason: Diarrhea Last Admin: 10/06/16 12:40 Dose: 2 mg Lorazepam (Ativan) 1 mg PO TID PRN PRN Reason: Anxiety Pantoprazole Sodium (Protonix Ec Tab) 40 mg PO 0630 [facility] Last Admin: 10/06/16 06:17 Dose: 40 mg Rosuvastatin Calcium (Crestor) 10 mg PO HS [facility] Last Admin: 10/05/16 22:02 Dose: 10 mg Saccharomyces Boulardii (Florastor) 250 mg PO BID [facility] Last Admin: 10/06/16 10:26 Dose: 250 mg - Labs Labs: 10/06/16 07:05 10/06/16 07:05 PT 12.1 SECONDS (9.7-12.2) 10/02/16 11:22 INR 1.1 10/02/16 11:22 APTT 35 SECONDS (21-34) H 10/01/16 06:25
--- NOTE | 2016-10-06 16:44 | PN ---
DATE: 10/06/2016 She has still been complaining of diarrhea and has been on Imodium. She denies any fever, no chills. No shortness of breath. I have discontinued her Maxipime as she has not needed and Tygacil will be tomorrow day 5, can be discontinued. Her urine culture, however, comes out multiple species. She i s obese with bilateral amputee, but I would call off the antibiotics tomorrow. PHYSICAL EXAMINATION VITAL SIGNS: T-max is 98.4, pulse 69, blood pressure is 100/60, respirations are 20. HEENT: Head is atraumatic, normocephalic. NECK: Supple. LUNGS: Clear, occasional wheeze. HEART: S1, S2 is regular. ABDOMEN: Soft. EXTREMITIES: Bilateral amputee. LABORATORY DATA: White count is 9.5. Creatinine is 2.8 and BUN is 75. So, creatinine is little bet ter and UA done today shows only 1+ leukocyte, WBC 12, RBC 3, but shows 2+ protein, so she is being f ollowed by the piccoloist also. We will see what they have to say. Maggie López MD cc: [id number] TT: 10/06/2016 16:44:06 Confirmation # [id number] Dictation # [id number] sn
--- NOTE | 2016-10-06 17:54 | CP.PCM.PN ---
<Erickson Adams - Last Filed: 10/06/16 17:50> Subjective - Date & Time of Evaluation Date of Evaluation: 10/06/16 Time of Evaluation: 07:45 - Subjective Subjective: Dr. Adams PGY 1 Hospitalist Note Patient seen and evaluated at bedside. She complains of abdominal pain and diarrhea so she is afraid to eat. Per the tech, she has soft bowel movements and not liquid. She has complained of constipation the past few days. She denies any fever, chills, nausea, SOB, or chest pain. Per nursing, the patient complains of hand pain due to the IVS's Objective - Vital Signs/Intake and Output Vital Signs (last 24 hours): Temp Pulse Resp BP Pulse Ox 98.4 F 69 20 100/60 100 10/06/16 15:51 10/06/16 15:51 10/06/16 15:51 10/06/16 15:51 10/06/16 15:51 Intake and Output: 10/06/16 10/06/16 06:59 18:59 Intake Total 390 Balance 390 - Medications Medications: Current Medications Acetaminophen (Tylenol 325mg Tab) 650 mg PO Q6H PRN PRN Reason: Fever >100.4 F Last Admin: 10/05/16 10:04 Dose: 650 mg Al Hydrox/Mg Hydrox/Simethicone (Maalox Plus 30 Ml) 30 ml PO Q6 PRN PRN Reason: Heartburn Last Admin: 10/04/16 10:34 Dose: 30 ml Aspirin (Ecotrin) 81 mg PO DAILY [facility] Brimonidine Tartrate (Alphagan 0.2% Opht) 0 ml OU TID [facility] Last Admin: 10/06/16 14:24 Dose: 1 drop Calcium Acetate (Phoslo) 667 mg PO AC [facility] Last Admin: 10/06/16 12:37 Dose: 667 mg Carvedilol (Coreg) 12.5 mg PO BID [facility] Last Admin: 10/06/16 10:26 Dose: 12.5 mg Dorzolamide HCl (Trusopt) 1 ml OU BID [facility] Last Admin: 10/06/16 10:28 Dose: 1 drop Furosemide (Lasix) 40 mg IVP BID [facility] Last Admin: 10/06/16 10:28 Dose: 40 mg Gabapentin (Neurontin) 100 mg PO TID [facility] Last Admin: 10/06/16 14:24 Dose: 100 mg Hydralazine HCl (Apresoline) 75 mg PO TID [facility] Last Admin: 10/06/16 14:24 Dose: 75 mg Tigecycline 50 mg/ Sodium (Chloride) 100 mls @ 100 mls/hr IVPB Q12H [facility] Last Admin: 10/06/16 06:17 Dose: 100 mls/hr Insulin Aspart (Novolog Mix 70/30 (70/30 Units/Ml)) 15 units SC ACD [facility] Last Admin: 10/05/16 18:28 Dose: Not Given Insulin Aspart (Novolog Mix 70/30 (70/30 Units/Ml)) 20 units SC ACB [facility] Last Admin: 10/06/16 08:36 Dose: 20 units Insulin Human Regular (Novolin R) 0 unit SC ACHS [facility] PRN Reason: Protocol Last Admin: 10/06/16 11:52 Dose: Not Given Lactobacillus Acidophilus (Bacid Acidophilus) 1 cap PO BID [facility] Last Admin: 10/06/16 10:25 Dose: 1 cap Loperamide HCl (Imodium) 2 mg PO QID PRN PRN Reason: Diarrhea Last Admin: 10/06/16 12:40 Dose: 2 mg Lorazepam (Ativan) 1 mg PO TID PRN PRN Reason: Anxiety Pantoprazole Sodium (Protonix Ec Tab) 40 mg PO 0630 [facility] Last Admin: 10/06/16 06:17 Dose: 40 mg Rosuvastatin Calcium (Crestor) 10 mg PO HS [facility] Last Admin: 10/05/16 22:02 Dose: 10 mg Saccharomyces Boulardii (Florastor) 250 mg PO BID [facility] Last Admin: 10/06/16 10:26 Dose: 250 mg - Labs Labs: 10/06/16 07:05 10/06/16 07:05 PT 12.1 SECONDS (9.7-12.2) 10/02/16 11:22 INR 1.1 10/02/16 11:22 APTT 35 SECONDS (21-34) H 10/01/16 06:25 - Constitutional Appears: Non-toxic, No Acute Distress - Head Exam Head Exam: ATRAUMATIC, NORMOCEPHALIC - Eye Exam Eye Exam: EOMI, Normal appearance, PERRL Pupil Exam: NORMAL ACCOMODATION, PERRL - ENT Exam ENT Exam: Mucous Membranes Moist. absent: Normal Oropharynx - Neck Exam Neck Exam: Full ROM, Normal Inspection. absent: Tenderness - Respiratory Exam Respiratory Exam: Clear to Ausculation Bilateral, NORMAL BREATHING PATTERN. absent: Rales, Rhonchi, Wheezes - Cardiovascular Exam Cardiovascular Exam: REGULAR RHYTHM, +S1, +S2. absent: Gallop, Rubs, Murmur - GI/Abdominal Exam GI & Abdominal Exam: Guarding (LLQ), Soft, Tenderness (diffuse), Normal Bowel Sounds - Extremities Exam Extremities Exam: absent: Normal Inspection (Bilateral lower extremity ampuation ), Tenderness - Neurological Exam Neurological Exam: Alert, Awake, CN II-XII Intact, Oriented x3 - Psychiatric Exam Psychiatric exam: Normal Affect, Normal Mood - Skin Skin Exam: Dry, Intact, Normal Color, Warm Assessment and Plan - Assessment and Plan (Free Text) Assessment: This is a 61 year old female with past medical hx of anemia, asthma/COPD on O2 , DM, HTN, HLD, CKD, bilateral lower extremity amputations was brought in by ambulance from senior living for severe anemia and worsening renal function. Found to have a UTI and complaint of SOB. Plan: Anemia * Nephrology consult, Dr. Saeed, help appreciated * GI consulted, Dr. Reyna, help appreicated * Likely from chronic kidney disease vs multiple myeloma vs GI bleed * Abdominal CT shows partial pericardial effusion, bilaterl pleural effusions, urinary bladder containing air [see full report] * FOBT positive * Patient on telemetry * Initial hgb 6.8 and transfused 3 units HGB currently stable * Iron studies: Iron 51, TIBC 172, 30% sat, Ferritin 165 * Protein electrophoresis studies show alpha 1 and 2 normal, low Beta 1 * Immunofixation shows faint IgG and Lambda against a dense polyclonal background may represent developing plasma cell disorder. * Beta-2 microglobulins 18.0 H * Procrit 10,000 unit SC MWF Dyspnea * history of asthma and COPD * CXR: mild pulmonary congestion. small left pleural effusion vs infiltrate/ atelectasis (see full report) * Chest CT shows bilateral pleural effusions, bilateral lower lobe compresive atelectasis, small pericardial effusion with mild cardiomegaly [see full report] * Duonebs * Cefepime 1 gm IVPB daily day 2 * Lasix 40 mg PO BID Abdominal Pain * Abdominal CT showed moderate pleural effusion, pericardial effusion, and decromressed urinary bladder [see full report] * continue maalox * imodium given for diarrhea * continue bacid UTI * Urine cultures grew gram negative rods * continue cefepime , tigecycline 50 mg q 12 * ESBL + * contact precautions * ID consulted, follow up recs * PICC line ordered due to poor IV access * f/u repeat urine culture straight cath DM * ISS * Accuchecks * Insulin aspart 20 units SC ACB/15 units SC ACD HTN * Hydralazine 75 mg PO TID, held due to hypotension * Resume coreg 12.5 mg PO BID due to BP rising. HLD * Crestor 10 mg PO HS CKD * Nephrology consult, Dr. Saeed, help appreciated * obtaining 24 hr urine protein and creatinine clearance with urine immunofixation * urinalysis +LE * 24 hr urine protein 9864.0 Prophylactic Measures * chemical anticoagulation contraindicated to FOBT+ and anemia * Protonix 40 mg PO daily * Gabapentin 100 mg PO TID * Maalox 30 ml PO Q6H PRN * Tylenol 650 mg PO Q6H PRN * HHD with mod carb, renal Assessment and plan discussed with attending. <Barrett Olivo H - Last Filed: 10/06/16 18:39> Objective - Vital Signs/Intake and Output Vital Signs (last 24 hours): Temp Pulse Resp BP Pulse Ox 98.4 F 67 20 100/60 100 10/06/16 15:51 10/06/16 16:00 10/06/16 15:51 10/06/16 15:51 10/06/16 15:51 Intake and Output: 10/06/16 10/06/16 06:59 18:59 Intake Total 390 Balance 390 - Medications Medications: Current Medications Acetaminophen (Tylenol 325mg Tab) 650 mg PO Q6H PRN PRN Reason: Fever >100.4 F Last Admin: 10/05/16 10:04 Dose: 650 mg Al Hydrox/Mg Hydrox/Simethicone (Maalox Plus 30 Ml) 30 ml PO Q6 PRN PRN Reason: Heartburn Last Admin: 10/04/16 10:34 Dose: 30 ml Aspirin (Ecotrin) 81 mg PO DAILY [facility] Brimonidine Tartrate (Alphagan 0.2% Opht) 0 ml OU TID [facility] Last Admin: 10/06/16 18:06 Dose: 1 drop Calcium Acetate (Phoslo) 667 mg PO AC [facility] Last Admin: 10/06/16 18:07 Dose: 667 mg Carvedilol (Coreg) 12.5 mg PO BID [facility] Last Admin: 10/06/16 10:26 Dose: 12.5 mg Dorzolamide HCl (Trusopt) 1 ml OU BID [facility] Last Admin: 10/06/16 18:07 Dose: 1 drop Furosemide (Lasix) 40 mg IVP BID [facility] Last Admin: 10/06/16 10:28 Dose: 40 mg Gabapentin (Neurontin) 100 mg PO TID [facility] Last Admin: 10/06/16 18:07 Dose: 100 mg Hydralazine HCl (Apresoline) 75 mg PO TID [facility] Last Admin: 10/06/16 18:23 Dose: Not Given Tigecycline 50 mg/ Sodium (Chloride) 100 mls @ 100 mls/hr IVPB Q12H [facility] Last Admin: 10/06/16 18:08 Dose: 100 mls/hr Insulin Aspart (Novolog Mix 70/30 (70/30 Units/Ml)) 15 units SC ACD [facility] Last Admin: 10/06/16 17:47 Dose: Not Given Insulin Aspart (Novolog Mix 70/30 (70/30 Units/Ml)) 20 units SC ACB [facility] Last Admin: 10/06/16 08:36 Dose: 20 units Insulin Human Regular (Novolin R) 0 unit SC ACHS [facility] PRN Reason: Protocol Last Admin: 10/06/16 17:47 Dose: Not Given Lactobacillus Acidophilus (Bacid Acidophilus) 1 cap PO BID [facility] Last Admin: 10/06/16 18:08 Dose: 1 cap Loperamide HCl (Imodium) 2 mg PO QID PRN PRN Reason: Diarrhea Last Admin: 10/06/16 12:40 Dose: 2 mg Lorazepam (Ativan) 1 mg PO TID PRN PRN Reason: Anxiety Pantoprazole Sodium (Protonix Ec Tab) 40 mg PO 0630 [facility] Last Admin: 10/06/16 06:17 Dose: 40 mg Rosuvastatin Calcium (Crestor) 10 mg PO HS [facility] Last Admin: 10/05/16 22:02 Dose: 10 mg Saccharomyces Boulardii (Florastor) 250 mg PO BID [facility] Last Admin: 10/06/16 18:07 Dose: 250 mg - Labs Labs: 10/06/16 07:05 10/06/16 07:05 PT 12.1 SECONDS (9.7-12.2) 10/02/16 11:22 INR 1.1 10/02/16 11:22 APTT 35 SECONDS (21-34) H 10/01/16 06:25 Attending/Attestation - Attestation I have personally seen and examined this patient.: Yes I have fully participated in the care of the patient.: Yes I have reviewed all pertinent clinical information, including history, physical exam and plan: Yes Notes (Text): 10/06/16 18:33 Medical Attending: Patient was seen and examined by me, Agree with the above note by the resident. Reviewed previous notes and discussed with lpn medical assistant as this is the first time I am meeting patient. Patient is comming from senior living. History of bilateral BKA as well as DM, COPD, CKD The patient has several problems - she intially came with anemia that probably is secondary to a history of ongoing CKD for sometime now. Also she intially had + urine and + blood cultures - the repeat studies are negative at this time. She remains on IV abx. Today will repeat the UA as well as a repeat CXRAY. thank you Barrett Olivo
[2016-10-07] MEDS: Pantoprazole 40 mg EC Tab PO SCH (05:48)
[2016-10-07] MEDS: (Novolin R) Insulin Human Regular 100 units/ml vial SC SCH ×2 (08:41→11:39)
[2016-10-07 08:44] LABS: BASO # 0.1 K/uL (0.0-0.2); BASO % 0.7 % (0.0-2.0); EOS # 0.3 K/uL (0.0-0.7); EOS % 3.3 % (0.0-4.0); HEMATOCRIT 33.8 % (34.0-47.0); LYMPH # 1.1 K/uL (1.0-4.3); LYMPH % 13.3 % (20.0-40.0); MEAN CELL VOLUME 90.1 fL (81.0-99.0); MEAN CORPUSCULAR HEMOGLOBIN 28.7 pg (27.0-31.0); MEAN CORPUSCULAR HGB CONC 31.9 g/dL (33.0-37.0); MEAN PLATELET VOLUME 10.2 fL (7.2-11.7); MONO # 0.7 K/uL (0.0-0.8); MONO % 8.3 % (0.0-10.0); NRBC % 0.1 % (0.0-2.0); RED CELL DISTRIBUTION WIDTH 15.6 % (11.5-14.5); WHITE BLOOD COUNT 8.2 K/uL (4.8-10.8)
[2016-10-07 08:58] LABS: POTASSIUM 3.6 mmol/L (3.6-5.2)
[2016-10-07 09:00] LABS: ALB/GLOB RATIO 0.7 (1.0-2.1); BILIRUBIN,TOTAL 0.4 mg/dL (0.2-1.3); TOTAL PROTEIN 5.5 g/dL (6.3-8.3)
[2016-10-07 09:01] LABS: CALCIUM 8.1 mg/dl (8.6-10.4)
[2016-10-07] MEDS: Lactobacillus Acidophilus 500 MU Cap PO SCH (09:45)
[2016-10-07] MEDS: (Novolog Mix 70/30) Insulin Aspart/Insulin Aspar 100 units/ml SC SCH (09:46)
[2016-10-07] MEDS: Brimonidine 0.2% Opth Sol (5ml) OU SCH ×2 (09:47→14:22)
[2016-10-07] MEDS: Dorzolamide 2% Opht Sol 10ml OU SCH (09:48)
[2016-10-07] MEDS: Saccharomyces Boulardi 250 mg Cap PO SCH (10:05)
--- NOTE | 2016-10-07 14:24 | CP.PCM.DIS ---
<Erickson Adams - Last Filed: 10/07/16 19:16> Provider - Provider Date of Admission: 09/30/16 19:31 Attending physician: Ondina Esqueda DO Consults: Dr. Jaquan Irizarry Time Spent in preparation of Discharge (in minutes): 55 Hospital Course - Lab Results Lab Results: Micro Results 10/03/16 11:28 Blood Blood Culture - Preliminary NO GROWTH AFTER 4 DAYS 10/06/16 15:00 Urine,Catheterized Urine Culture - Final No Growth (<1,000 CFU/ML) 10/03/16 15:30 Blood Blood Culture - Preliminary NO GROWTH AFTER 3 DAYS 10/03/16 15:15 Stool Stool Culture - Final NO SALMONELLA, SHIGELLA OR CAMPYLOBACTER ISOLATED. 10/03/16 15:15 Rectum Ova and Parasite Concentrate Exam - Final 10/03/16 Unknown Urine,Allred Urine Culture - Final MULTIPLE SPECIES. SUGGEST REPEAT SPECIMEN. Most Recent Lab Values WBC 8.2 K/uL (4.8-10.8) 10/07/16 08:32 RBC 3.75 Mil/uL (3.80-5.20) L 10/07/16 08:32 Hgb 10.8 g/dL (11.0-16.0) L 10/07/16 08:32 Hct 33.8 % (34.0-47.0) L 10/07/16 08:32 MCV 90.1 fL (81.0-99.0) 10/07/16 08:32 MCH 28.7 pg (27.0-31.0) 10/07/16 08:32 MCHC 31.9 g/dL (33.0-37.0) L 10/07/16 08:32 RDW 15.6 % (11.5-14.5) H 10/07/16 08:32 Plt Count 170 K/uL (130-400) 10/07/16 08:32 MPV 10.2 fL (7.2-11.7) 10/07/16 08:32 Neut % (Auto) 74.4 % (50.0-75.0) 10/07/16 08:32 Lymph % (Auto) 13.3 % (20.0-40.0) L 10/07/16 08:32 Cook % (Auto) 8.3 % (0.0-10.0) 10/07/16 08:32 Eos % (Auto) 3.3 % (0.0-4.0) 10/07/16 08:32 Baso % (Auto) 0.7 % (0.0-2.0) 10/07/16 08:32 Neut # 6.1 K/uL (1.8-7.0) 10/07/16 08:32 Lymph # 1.1 K/uL (1.0-4.3) 10/07/16 08:32 Cook # 0.7 K/uL (0.0-0.8) 10/07/16 08:32 Eos # 0.3 K/uL (0.0-0.7) 10/07/16 08:32 Baso # 0.1 K/uL (0.0-0.2) 10/07/16 08:32 Neutrophils % (Manual) 87 % (50-75) H 10/04/16 08:30 Lymphocytes % (Manual) 6 % (20-40) L 10/04/16 08:30 Monocytes % (Manual) 7 % (0-10) 10/04/16 08:30 Platelet Estimate Normal (NORMAL) 10/04/16 08:30 Polychromasia Slight 10/04/16 08:30 Hypochromasia (manual) Slight 10/04/16 08:30 Poikilocytosis (manual Slight 10/04/16 08:30 Anisocytosis (manual) Slight 10/04/16 08:30 Microcytosis (manual) Slight 10/04/16 08:30 Macrocytosis (manual) Slight 10/04/16 08:30 Tear Drop Cells Slight 10/04/16 08:30 Ovalocytes Slight 10/04/16 08:30 PT 12.1 SECONDS (9.7-12.2) 10/02/16 11:22 INR 1.1 10/02/16 11:22 APTT 35 SECONDS (21-34) H 10/01/16 06:25 pO2 55 mm/Hg (30-55) 09/30/16 19:00 VBG pH 7.37 (7.32-7.43) 09/30/16 19:00 VBG pCO2 60 mmHg (40-60) 09/30/16 19:00 VBG HCO3 30.4 mmol/L 09/30/16 19:00 VBG Total CO2 36.5 mmol/L (22-28) H 09/30/16 19:00 VBG O2 Sat (Calc) 95.4 % (40-65) H 09/30/16 19:00 VBG Base Excess 7.4 mmol/L (0.0-2.0) H 09/30/16 19:00 VBG Potassium 5.2 mmol/L (3.6-5.2) 09/30/16 19:00 Sodium 133.0 mmol/l (132-148) 09/30/16 19:00 Chloride 101.0 mmol/L (98-107) 09/30/16 19:00 Glucose 86 mg/dl (65-105) 09/30/16 19:00 Lactate 0.6 mmol/L (0.7-2.1) L 09/30/16 19:00 Sodium 137 mmol/L (132-148) 10/07/16 08:32 Potassium 3.6 mmol/L (3.6-5.2) 10/07/16 08:32 Chloride 100 mmol/L (98-107) 10/07/16 08:32 Carbon Dioxide 27 mmol/L (22-30) 10/07/16 08:32 Anion Gap 13 (10-20) 10/07/16 08:32 BUN 80 mg/dL (7-17) H 10/07/16 08:32 Creatinine 3.1 MG/DL (0.7-1.2) H 10/07/16 08:32 Est GFR ( Amer) 18 10/07/16 08:32 Est GFR (Non-Af Amer) 15 10/07/16 08:32 POC Glucose (mg/dL) 129 mg/dL (65-110) H 10/07/16 11:37 Random Glucose 87 mg/dL (65-105) 10/07/16 08:32 Hemoglobin A1c 6.2 % (4.2-6.5) 10/04/16 16:56 Calcium 8.1 mg/dl (8.6-10.4) L 10/07/16 08:32 Phosphorus 5.2 mg/dL (2.5-4.5) H 10/06/16 07:05 Magnesium 2.3 mg/dL (1.6-2.3) 10/06/16 07:05 Iron 51 ug/dL (37-170) 10/01/16 06:25 TIBC 172 ug/dL (250-450) L 10/01/16 06:25 % Saturation 30 (20-55) 10/01/16 06:25 Ferritin 165.0 ng/mL 10/01/16 06:25 Total Bilirubin 0.4 mg/dL (0.2-1.3) 10/07/16 08:32 AST 16 U/L (14-36) 10/07/16 08:32 ALT 23 U/L (9-52) 10/07/16 08:32 Alkaline Phosphatase 57 U/L (38-126) 10/07/16 08:32 Troponin I 0.0590 ng/mL (0.00-0.120) 10/01/16 06:25 NT-Pro-B Natriuret Pep 7540 pg/mL (0-900) H 09/30/16 18:59 Total Protein 5.5 g/dL (6.3-8.3) L 10/07/16 08:32 Total Protein (PEP) 5.8 g/dL (6.1-8.1) L 10/01/16 06:25 Albumin 2.2 g/dL (3.5-5.0) L 10/07/16 08:32 Albumin (PEP) 2.8 g/dL (3.8-4.8) L 10/01/16 06:25 Globulin 3.2 gm/dL (2.2-3.9) 10/07/16 08:32 Albumin/Globulin Ratio 0.7 (1.0-2.1) L 10/07/16 08:32 Knspe-8-Zymfczuxw 0.3 g/dL (0.2-0.3) 10/01/16 06:25 Fesau-4-Adhosbwzr 0.7 g/dL (0.5-0.9) 10/01/16 06:25 Amnk-0-Rloesfxt 0.3 g/dL (0.4-0.6) L 10/01/16 06:25 Unfh-0-Tbelayhj 0.4 g/dL (0.2-0.5) 10/01/16 06:25 Befk-1-Erdmrayzktqev 18.00 mg/L (<or= 2.51) H 10/01/16 06:25 Gamma Globulins 1.2 g/dL (0.8-1.7) 10/01/16 06:25 Abnorm Protein Band 1 TEST NOT PERFORMED 10/01/16 06:25 Abnorm Protein Band 2 TEST NOT PERFORMED 10/01/16 06:25 Abnorm Protein Band 3 TEST NOT PERFORMED 10/01/16 06:25 Triglycerides 119 mg/dL (0-149) D 10/01/16 06:25 Cholesterol 101 mg/dL (0-199) 10/01/16 06:25 LDL Cholesterol Direct < 30 mg/dL (0-129) 10/01/16 06:25 HDL Cholesterol 42 mg/dL (30-70) 10/01/16 06:25 Thyroxine (T4) 8.92 ug/dL (5.5-11.0) 10/01/16 06:25 TSH 3rd Generation 2.45 mIU/L (0.46-4.68) 10/01/16 06:25 Venous Blood Potassium 5.2 mmol/L (3.6-5.2) 09/30/16 19:00 Urine Color Yellow (YELLOW) 10/06/16 14:58 Urine Clarity Clear (Clear) 10/06/16 14:58 Urine pH 6.0 (5.0-8.0) 10/06/16 14:58 Ur Specific Mason 1.011 (1.003-1.030) 10/06/16 14:58 Urine Protein 2+ mg/dL (NEGATIVE) H 10/06/16 14:58 Urine Glucose (UA) 1+ mg/dL (Normal) 10/06/16 14:58 Urine Ketones Negative mg/dL (NEGATIVE) 10/06/16 14:58 Urine Blood Negative (NEGATIVE) 10/06/16 14:58 Urine Nitrate Negative (NEGATIVE) 10/06/16 14:58 Urine Bilirubin Negative (NEGATIVE) 10/06/16 14:58 Urine Urobilinogen Normal mg/dL (0.2-1.0) 10/06/16 14:58 Ur Leukocyte Esterase 1+ Rustam/uL (Negative) H 10/06/16 14:58 Urine WBC (Auto) 12 /hpf (0-5) H 10/06/16 14:58 Urine RBC (Auto) 3 /hpf (0-3) 10/06/16 14:58 Urine WBC Clumps (Auto) Many /hpf (NONE) H 09/30/16 18:52 Ur Squamous Epith Cells 6 /hpf (0-5) H 10/03/16 08:11 Urine Bacteria Rare (<OCC) 10/06/16 14:58 Hyaline Casts 0-2 /lpf (0-2) 10/06/16 14:58 Urine Collection Time 24 HRS 10/03/16 08:37 Urine Total Volume 2400 mL 10/03/16 08:37 Urine Creatinine 0.35 g/L 10/01/16 08:37 Ur Creatinine 24 Hour 0.84 g/24 h (0.63-2.50) 10/01/16 08:37 Creatinine Clearance 12.0 mL/min (87-107) L 10/03/16 00:54 Ur Total Protein 24 Hr 7942 mg/24 h (<150) H 10/01/16 08:37 Protein/Creat Ratio 24h 9481 mg/g creat (</=84) H 10/01/16 08:37 Urine Total Protein 3309 mg/L (50-240) H 10/01/16 08:37 Ur Protein 24 Hr Calc 9864.0 mg/24hr (42-225) H 10/03/16 08:37 Stool Occult Blood Positive (NEGATIVE) H 10/04/16 13:54 Stool Leukocytes, Qual Negative (NEGATIVE) 10/03/16 16:00 Random Vancomycin 13.79 ug/mL 10/04/16 08:30 BRYAN & SPEP Interp See note 10/01/16 06:25 Serum Immunofixation See note 10/01/16 06:25 C. difficile Ag & Toxin Negative (NEGATIVE) 10/04/16 Unknown Influenza Typ A,B (EIA) Negative for flu a/b (NEGATIVE) 09/30/16 18:07 Blood Type O POSITIVE 09/30/16 19:43 Antibody Screen Negative 09/30/16 19:43 - Hospital Course Hospital Course: CC: "shortness of breath" HPI: 61 F with PMH anemia, asthma/COPD on O2, DM, HTN, HLD, CKD, bilateral lower extremity amputations was brought in by ambulance from shelter for severe anemia and worsening renal function. As per staff, shelter noticed the low hemoglobin and poor renal function on labs that were drawn. Patient stated that she was here because of shortness of breath for last 4-5 days. Patient is a poor historian. Patient does not have dementia and is AAO x 3. Besides the shortness of breath, patient did not really complain of much. She denies any pain currently. Nothing exacerbates shortness of breath while oxygen helps. Admits to cough with some production. Denies fever/chills, cp, palpitations, abd pain, n/v/d, constipation, incontinence, urinary symptoms. Hospital course: Patient is a 61 y/o F who presented with complaint of SOB. She was found to be anemic with worsening renal function. A chest x ray performed showed mild pulmonary congestion. small left pleural effusion vs infiltrate/ atelectasis. A chest CT was performed showing bilateral pleural effusions, bilateral lower lobe compresive atelectasis, small pericardial effusion with mild cardiomegally. She complained of abdominal pain and a CT of the abdomen showed moderate pleural effusion, pericardial effusion, and decromressed urinary bladder. Nephrology, cardiology, and GI were consulted. The patient was transfused 3 units of PRBC and started on procrit. Immunofixation was performed showing faint IgG and Lambda against a dense polyclonal background may represent developing plasma cell disorder. Her cardiac enzymes remained negative and no changes to her EKG. 24 hour urine was collected showing elevated protein confirming CKD. She was found to have a UTI which grew ESBL and ID was consulted. She was started on IV tigecycline. Her SOB and abdominal pain improved. A repeat urine and blood culture was performed negative for growth. She was determined medically stable for discharge. She was sent back to the nursing facility with 1 day of Tigacycline and advised to resume home medications and see her regular doctor. If her symptoms worsen, she is to return to the emergency room. This is a brief summary of the patient's stay at this facility. For more detail , see patient's full chart. - Date & Time of H&P Date of H&P: 09/30/16 Time of H&P: 20:11 Discharge Exam - Head Exam Head Exam: ATRAUMATIC, NORMOCEPHALIC - Eye Exam Eye Exam: EOMI, Normal appearance, PERRL Pupil Exam: NORMAL ACCOMODATION, PERRL - ENT Exam ENT Exam: Mucous Membranes Moist, Normal Oropharynx - Respiratory Exam Respiratory Exam: NORMAL BREATHING PATTERN. absent: Rales, Rhonchi, Wheezes - Cardiovascular Exam Cardiovascular Exam: REGULAR RHYTHM, +S1, +S2. absent: Gallop, Rubs, Systolic Murmur - GI/Abdominal Exam GI & Abdominal Exam: Normal Bowel Sounds, Soft. absent: Distended, Firm, Guarding, Tenderness - Extremities Exam Additional comments: bilateral lower ext amputation - Back Exam Back exam: absent: NORMAL INSPECTION, rash noted, tenderness - Neurological Exam Neurological exam: Alert, CN II-XII Intact, Oriented x3 - Psychiatric Exam Psychiatric exam: Normal Affect, Normal Mood - Skin Skin Exam: Dry, Intact, Normal Color, Warm Discharge Plan - Follow Up Plan Condition: FAIR Disposition: REHAB FACILITY/REHAB UNIT Instructions: Heart Failure (DC), Gastrointestinal Bleeding (DC), Acute Kidney Injury (DC), Renal Failure Diet (DC), Diabetes Mellitus Type 2 in Adults (DC), Basic Carbohydrate Counting (DC), Hypertension (DC), Anemia (DC) Additional Instructions: You are medically stable for discharge. You will need one more day of antibiotic therapy of Tigacycline at the shelter. Please make sure to see your primary care physician. If your symptoms worsen or new symptoms arise, please return to the emergency department. <Barrett Olivo - Last Filed: 10/08/16 07:48> Provider - Provider Date of Admission: 09/30/16 19:31 Attending physician: Ondina Esqueda, Hospital Course - Lab Results Lab Results: Micro Results 10/03/16 15:30 Blood Blood Culture - Preliminary NO GROWTH AFTER 4 DAYS 10/03/16 11:28 Blood Blood Culture - Preliminary NO GROWTH AFTER 4 DAYS 10/06/16 15:00 Urine,Catheterized Urine Culture - Final No Growth (<1,000 CFU/ML) 10/03/16 15:15 Stool Stool Culture - Final NO SALMONELLA, SHIGELLA OR CAMPYLOBACTER ISOLATED. 10/03/16 15:15 Rectum Ova and Parasite Concentrate Exam - Final 10/03/16 Unknown Urine,Allred Urine Culture - Final MULTIPLE SPECIES. SUGGEST REPEAT SPECIMEN. Most Recent Lab Values WBC 8.2 K/uL (4.8-10.8) 10/07/16 08:32 RBC 3.75 Mil/uL (3.80-5.20) L 10/07/16 08:32 Hgb 10.8 g/dL (11.0-16.0) L 10/07/16 08:32 Hct 33.8 % (34.0-47.0) L 10/07/16 08:32 MCV 90.1 fL (81.0-99.0) 10/07/16 08:32 MCH 28.7 pg (27.0-31.0) 10/07/16 08:32 MCHC 31.9 g/dL (33.0-37.0) L 10/07/16 08:32 RDW 15.6 % (11.5-14.5) H 10/07/16 08:32 Plt Count 170 K/uL (130-400) 10/07/16 08:32 MPV 10.2 fL (7.2-11.7) 10/07/16 08:32 Neut % (Auto) 74.4 % (50.0-75.0) 10/07/16 08:32 Lymph % (Auto) 13.3 % (20.0-40.0) L 10/07/16 08:32 Cook % (Auto) 8.3 % (0.0-10.0) 10/07/16 08:32 Eos % (Auto) 3.3 % (0.0-4.0) 10/07/16 08:32 Baso % (Auto) 0.7 % (0.0-2.0) 10/07/16 08:32 Neut # 6.1 K/uL (1.8-7.0) 10/07/16 08:32 Lymph # 1.1 K/uL (1.0-4.3) 10/07/16 08:32 Cook # 0.7 K/uL (0.0-0.8) 10/07/16 08:32 Eos # 0.3 K/uL (0.0-0.7) 10/07/16 08:32 Baso # 0.1 K/uL (0.0-0.2) 10/07/16 08:32 Neutrophils % (Manual) 87 % (50-75) H 10/04/16 08:30 Lymphocytes % (Manual) 6 % (20-40) L 10/04/16 08:30 Monocytes % (Manual) 7 % (0-10) 10/04/16 08:30 Platelet Estimate Normal (NORMAL) 10/04/16 08:30 Polychromasia Slight 10/04/16 08:30 Hypochromasia (manual) Slight 10/04/16 08:30 Poikilocytosis (manual Slight 10/04/16 08:30 Anisocytosis (manual) Slight 10/04/16 08:30 Microcytosis (manual) Slight 10/04/16 08:30 Macrocytosis (manual) Slight 10/04/16 08:30 Tear Drop Cells Slight 10/04/16 08:30 Ovalocytes Slight 10/04/16 08:30 PT 12.1 SECONDS (9.7-12.2) 10/02/16 11:22 INR 1.1 10/02/16 11:22 APTT 35 SECONDS (21-34) H 10/01/16 06:25 pO2 55 mm/Hg (30-55) 09/30/16 19:00 VBG pH 7.37 (7.32-7.43) 09/30/16 19:00 VBG pCO2 60 mmHg (40-60) 09/30/16 19:00 VBG HCO3 30.4 mmol/L 09/30/16 19:00 VBG Total CO2 36.5 mmol/L (22-28) H 09/30/16 19:00 VBG O2 Sat (Calc) 95.4 % (40-65) H 09/30/16 19:00 VBG Base Excess 7.4 mmol/L (0.0-2.0) H 09/30/16 19:00 VBG Potassium 5.2 mmol/L (3.6-5.2) 09/30/16 19:00 Sodium 133.0 mmol/l (132-148) 09/30/16 19:00 Chloride 101.0 mmol/L (98-107) 09/30/16 19:00 Glucose 86 mg/dl (65-105) 09/30/16 19:00 Lactate 0.6 mmol/L (0.7-2.1) L 09/30/16 19:00 Sodium 137 mmol/L (132-148) 10/07/16 08:32 Potassium 3.6 mmol/L (3.6-5.2) 10/07/16 08:32 Chloride 100 mmol/L (98-107) 10/07/16 08:32 Carbon Dioxide 27 mmol/L (22-30) 10/07/16 08:32 Anion Gap 13 (10-20) 10/07/16 08:32 BUN 80 mg/dL (7-17) H 10/07/16 08:32 Creatinine 3.1 MG/DL (0.7-1.2) H 10/07/16 08:32 Est GFR ( Amer) 18 10/07/16 08:32 Est GFR (Non-Af Amer) 15 10/07/16 08:32 POC Glucose (mg/dL) 154 mg/dL (65-110) H 10/07/16 16:58 Random Glucose 87 mg/dL (65-105) 10/07/16 08:32 Hemoglobin A1c 6.2 % (4.2-6.5) 10/04/16 16:56 Calcium 8.1 mg/dl (8.6-10.4) L 10/07/16 08:32 Phosphorus 5.2 mg/dL (2.5-4.5) H 10/06/16 07:05 Magnesium 2.3 mg/dL (1.6-2.3) 10/06/16 07:05 Iron 51 ug/dL (37-170) 10/01/16 06:25 TIBC 172 ug/dL (250-450) L 10/01/16 06:25 % Saturation 30 (20-55) 10/01/16 06:25 Ferritin 165.0 ng/mL 10/01/16 06:25 Total Bilirubin 0.4 mg/dL (0.2-1.3) 10/07/16 08:32 AST 16 U/L (14-36) 10/07/16 08:32 ALT 23 U/L (9-52) 10/07/16 08:32 Alkaline Phosphatase 57 U/L (38-126) 10/07/16 08:32 Troponin I 0.0590 ng/mL (0.00-0.120) 10/01/16 06:25 NT-Pro-B Natriuret Pep 7540 pg/mL (0-900) H 09/30/16 18:59 Total Protein 5.5 g/dL (6.3-8.3) L 10/07/16 08:32 Total Protein (PEP) 5.8 g/dL (6.1-8.1) L 10/01/16 06:25 Albumin 2.2 g/dL (3.5-5.0) L 10/07/16 08:32 Albumin (PEP) 2.8 g/dL (3.8-4.8) L 10/01/16 06:25 Globulin 3.2 gm/dL (2.2-3.9) 10/07/16 08:32 Albumin/Globulin Ratio 0.7 (1.0-2.1) L 10/07/16 08:32 Zkuou-8-Mdogmairj 6.2 Relative % 10/01/16 08:37 Ryqnr-8-Vawovdqmb 6.1 Relative % 10/01/16 08:37 Beta Globulins 10.9 Relative % 10/01/16 08:37 Eqhb-2-Jkdterli 0.3 g/dL (0.4-0.6) L 10/01/16 06:25 Ixup-8-Fhotcqnd 0.4 g/dL (0.2-0.5) 10/01/16 06:25 Vrrg-1-Idseluqckugfq 18.00 mg/L (<or= 2.51) H 10/01/16 06:25 Gamma Globulins 16.5 Relative % 10/01/16 08:37 Abnorm Protein Band 1 TEST NOT PERFORMED 10/01/16 06:25 Abnorm Protein Band 2 TEST NOT PERFORMED 10/01/16 06:25 Abnorm Protein Band 3 TEST NOT PERFORMED 10/01/16 06:25 Triglycerides 119 mg/dL (0-149) D 10/01/16 06:25 Cholesterol 101 mg/dL (0-199) 10/01/16 06:25 LDL Cholesterol Direct < 30 mg/dL (0-129) 10/01/16 06:25 HDL Cholesterol 42 mg/dL (30-70) 10/01/16 06:25 Thyroxine (T4) 8.92 ug/dL (5.5-11.0) 10/01/16 06:25 TSH 3rd Generation 2.45 mIU/L (0.46-4.68) 10/01/16 06:25 Venous Blood Potassium 5.2 mmol/L (3.6-5.2) 09/30/16 19:00 Urine Color Yellow (YELLOW) 10/06/16 14:58 Urine Clarity Clear (Clear) 10/06/16 14:58 Urine pH 6.0 (5.0-8.0) 10/06/16 14:58 Ur Specific Mason 1.011 (1.003-1.030) 10/06/16 14:58 Urine Protein 2+ mg/dL (NEGATIVE) H 10/06/16 14:58 Urine Glucose (UA) 1+ mg/dL (Normal) 10/06/16 14:58 Urine Ketones Negative mg/dL (NEGATIVE) 10/06/16 14:58 Urine Blood Negative (NEGATIVE) 10/06/16 14:58 Urine Nitrate Negative (NEGATIVE) 10/06/16 14:58 Urine Bilirubin Negative (NEGATIVE) 10/06/16 14:58 Urine Urobilinogen Normal mg/dL (0.2-1.0) 10/06/16 14:58 Ur Leukocyte Esterase 1+ Rustam/uL (Negative) H 10/06/16 14:58 Urine WBC (Auto) 12 /hpf (0-5) H 10/06/16 14:58 Urine RBC (Auto) 3 /hpf (0-3) 10/06/16 14:58 Urine WBC Clumps (Auto) Many /hpf (NONE) H 09/30/16 18:52 Ur Squamous Epith Cells 6 /hpf (0-5) H 10/03/16 08:11 Urine Bacteria Rare (<OCC) 10/06/16 14:58 Hyaline Casts 0-2 /lpf (0-2) 10/06/16 14:58 Urine Collection Time 24 HRS 10/03/16 08:37 Urine Total Volume 2400 mL 10/03/16 08:37 Urine Creatinine 0.35 g/L 10/01/16 08:37 Ur Creatinine 24 Hour 0.84 g/24 h (0.63-2.50) 10/01/16 08:37 Creatinine Clearance 12.0 mL/min (87-107) L 10/03/16 00:54 Ur Total Protein 24 Hr 7942 mg/24 h (<150) H 10/01/16 08:37 Protein/Creat Ratio 24h 9481 mg/g creat (</=84) H 10/01/16 08:37 Urine Total Protein 3309 mg/L (50-240) H 10/01/16 08:37 Ur Protein 24 Hr Calc 9864.0 mg/24hr (42-225) H 10/03/16 08:37 Urine Albumin (PEP) 60.3 Relative % 10/01/16 08:37 Ur Protein Fractions See note 10/01/16 08:37 Stool Occult Blood Positive (NEGATIVE) H 10/04/16 13:54 Stool Leukocytes, Qual Negative (NEGATIVE) 10/03/16 16:00 Random Vancomycin 13.79 ug/mL 10/04/16 08:30 BRYAN & SPEP Interp See note 10/01/16 06:25 Serum Immunofixation See note 10/01/16 06:25 C. difficile Ag & Toxin Negative (NEGATIVE) 10/04/16 Unknown Influenza Typ A,B (EIA) Negative for flu a/b (NEGATIVE) 09/30/16 18:07 Blood Type O POSITIVE 09/30/16 19:43 Antibody Screen Negative 09/30/16 19:43 Attending/Attestation - Attestation I have personally seen and examined this patient.: Yes I have fully participated in the care of the patient.: Yes I have reviewed all pertinent clinical information, including history, physical exam and plan: Yes Notes (Text): Medical Attending: Patient was seen and examined by me. Agree with the above note by the medical device engineer. This is a patient with multiple medical problems and history of bilateral amputations. When she first came to the hospital she had extensive anemia and this was felt to be secondary to the patient's ongoing chronic kidney disease. She received 3 units of PRBCs and we have been following the Hgb and it has been stable for the past several days. She also has been on abx as well, as mentioned above in resident note she did have positive cultures and the repeat cultures have been negative. She will need one more additional day of IV abx when she returns to shelter thank you
[2016-10-07 15:10] LABS: GAMMA GLOBULIN 16.5 Relative %
--- NOTE | 2016-10-07 15:22 | CP.PCM.PN ---
Subjective - Date & Time of Evaluation Date of Evaluation: 10/07/16 Time of Evaluation: 03:15 - Subjective Subjective: dictated Objective - Vital Signs/Intake and Output Vital Signs (last 24 hours): Temp Pulse Resp BP Pulse Ox 98.2 F 85 20 145/63 99 10/07/16 08:11 10/07/16 08:11 10/07/16 08:11 10/07/16 09:53 10/07/16 08:11 Intake and Output: 10/07/16 10/07/16 06:59 18:59 Intake Total 300 Balance 300 - Medications Medications: Current Medications Acetaminophen (Tylenol 325mg Tab) 650 mg PO Q6H PRN PRN Reason: Fever >100.4 F Last Admin: 10/05/16 10:04 Dose: 650 mg Al Hydrox/Mg Hydrox/Simethicone (Maalox Plus 30 Ml) 30 ml PO Q6 PRN PRN Reason: Heartburn Last Admin: 10/04/16 10:34 Dose: 30 ml Aspirin (Ecotrin) 81 mg PO DAILY [facility] Brimonidine Tartrate (Alphagan 0.2% Opht) 0 ml OU TID [facility] Last Admin: 10/07/16 14:22 Dose: 1 drop Calcium Acetate (Phoslo) 667 mg PO AC [facility] Last Admin: 10/07/16 11:57 Dose: 667 mg Carvedilol (Coreg) 12.5 mg PO BID [facility] Last Admin: 10/07/16 09:44 Dose: 12.5 mg Dorzolamide HCl (Trusopt) 1 ml OU BID [facility] Last Admin: 10/07/16 09:48 Dose: 1 drop Furosemide (Lasix) 40 mg IVP BID [facility] Last Admin: 10/07/16 09:53 Dose: 40 mg Gabapentin (Neurontin) 100 mg PO TID [facility] Last Admin: 10/07/16 14:28 Dose: 100 mg Hydralazine HCl (Apresoline) 75 mg PO TID [facility] Last Admin: 10/07/16 14:22 Dose: 75 mg Tigecycline 50 mg/ Sodium (Chloride) 100 mls @ 100 mls/hr IVPB Q12H [facility] Last Admin: 10/07/16 05:35 Dose: 100 mls/hr Insulin Aspart (Novolog Mix 70/30 (70/30 Units/Ml)) 15 units SC ACD [facility] Last Admin: 10/06/16 17:47 Dose: Not Given Insulin Aspart (Novolog Mix 70/30 (70/30 Units/Ml)) 20 units SC ACB [facility] Last Admin: 10/07/16 09:46 Dose: 20 units Insulin Human Regular (Novolin R) 0 unit SC ACHS [facility] PRN Reason: Protocol Last Admin: 10/07/16 11:39 Dose: Not Given Lactobacillus Acidophilus (Bacid Acidophilus) 1 cap PO BID [facility] Last Admin: 10/07/16 09:45 Dose: 1 cap Loperamide HCl (Imodium) 2 mg PO QID PRN PRN Reason: Diarrhea Last Admin: 10/06/16 12:40 Dose: 2 mg Lorazepam (Ativan) 1 mg PO TID PRN PRN Reason: Anxiety Pantoprazole Sodium (Protonix Ec Tab) 40 mg PO 0630 [facility] Last Admin: 10/07/16 05:48 Dose: 40 mg Rosuvastatin Calcium (Crestor) 10 mg PO HS [facility] Last Admin: 10/06/16 21:57 Dose: 10 mg Saccharomyces Boulardii (Florastor) 250 mg PO BID [facility] Last Admin: 10/07/16 10:05 Dose: Not Given - Labs Labs: 10/07/16 08:32 10/07/16 08:32 PT 12.1 SECONDS (9.7-12.2) 10/02/16 11:22 INR 1.1 10/02/16 11:22 APTT 35 SECONDS (21-34) H 10/01/16 06:25
[2016-10-07 16:19] VITALS: BP 121/46; PULSE 92; TEMP 98.9; O2SAT 100
== END 2016-10-07 17:42 | DRG 812 ==
LOC: C.ER 17:43 → C.6T 19:31
PROVIDERS: ADMIT Hospitalist; ATTEND Hospitalist
PROC: 30233N1 Transfusion of Nonautologous Red Blood Cells into Peripheral Vein, Percutaneous Approach (ICD-10-PCS; principal; 2016-10-03)
DX: D50.9 Iron deficiency anemia, unspecified (principal); N17.9 Acute kidney failure, unspecified; E11.22 Type 2 diabetes mellitus with diabetic chronic kidney disease; E11.51 Type 2 diabetes mellitus with diabetic peripheral angiopathy without gangrene; I12.9 Hypertensive chronic kidney disease with stage 1 through stage 4 chronic kidney disease, or unspecified chronic kidney disease; N18.9 Chronic kidney disease, unspecified; E11.649 Type 2 diabetes mellitus with hypoglycemia without coma; J44.9 Chronic obstructive pulmonary disease, unspecified; J45.909 Unspecified asthma, uncomplicated; F32.9 Major depressive disorder, single episode, unspecified; E78.5 Hyperlipidemia, unspecified; E66.9 Obesity, unspecified; H40.9 Unspecified glaucoma; Z89.612 Acquired absence of left leg above knee; Z89.611 Acquired absence of right leg above knee; Z79.4 Long term (current) use of insulin; Z87.440 Personal history of urinary (tract) infections; Z99.81 Dependence on supplemental oxygen; Z87.01 Personal history of pneumonia (recurrent)

== ENCOUNTER 2016-11-14 18:30 | Inpatient (IN) | payer MEDICARE, MEDICAID ==
[2016-11-14 18:30] VITALS: BMI 45.9
--- NOTE | 2016-11-14 19:24 | C.PDOC ---
Chief Complaint (Nursing): Altered Mental Status Past Medical History Vital Signs: Last Vital Signs Temp 98.2 F 11/14/16 19:03 Pulse Resp BP Pulse Ox - Medical History PMH: Anemia, Anxiety, Asthma, COPD, Depression, Diabetes, Emphysema, HTN, Hypercholesterolemia, Hyperlipidemia, Peripheral Edema, Pneumonia, Chronic Kidney Disease Surgical History: - [facility] Procedures AMPUTATION STUMP NICKI (06/24/14) ANGIOPLASTY OR ATHERECTOMY OF OTHER NON-CORONARY VESSEL(S) (12/14/06) APPLICATION OF SPLINT (10/23/04) BELOW KNEE AMPUTAT NEC (12/14/06) CENTRAL VENOUS CATHETER PLACEMENT WITH GUIDANCE (01/30/15) CONTR ABD ARTERIOGRM NEC (10/28/06) CONTR CEREBR ARTERIOGRAM (09/27/04) CONTRAST AORTOGRAM (12/14/06) CONTRAST ARTERIOGRAM NEC (12/14/06) CONTRAST ARTERIOGRAM-LEG (10/28/06) CORONAR ARTERIOGR-2 CATH (08/17/06) DRAINAGE OF GALLBLADDER WITH DRAINAGE DEVICE, PERC APPROACH (02/21/15) ESOPHAGOGASTRODUODENOSCOPY [EGD] W/CLOSED BIOPSY (12/04/11) EXCIS DEBRIDE OF WOUND, INFECT, OR BURN (10/08/11) EXCISION OF SMALL INTESTINE, ENDO, DIAGN (06/26/16) EXCISION OF STOMACH, ENDO, DIAGN (02/21/15) FLUOROSCOPY R UP EXTREM VEIN W L OSM CONTRAST, GUIDANCE (04/08/16) INJECT ANTICOAGULANT (09/18/06) INJECT/INFUSE NEC (05/15/06) INSERT INFUSION DEV IN R INT JUGULAR VEIN, PERC (10/31/16) INSERTION OF INFUSION DEV INTO SUP VENA CAVA, PERC APPROACH (06/26/16) INSERTION OF [id number] PERIPHERAL VESSEL STENT(S) (10/28/06) INSERTION OF ONE VASCULAR STENT (09/18/06) INSERTION OF THREE VASCULAR STENTS (09/18/06) INTRODUCE OF OTH THERAP SUBST INTO RESP TRACT, VIA OPENING (02/21/15) LEFT HEART CARDIAC CATH (08/17/06) LT HEART ANGIOCARDIOGRAM (08/17/06) MAGNETIC RESONANCE IMAGING OF BRAIN AND BRAIN STEM (05/21/03) MRI OF OTHER AND UNSPECIFIED SITES (09/27/04) NEBULIZER THERAPY (01/02/13) NON-INVASIVE MECHANICAL VENTILATION (10/08/11) NONEXCIS DEBRID OF WOUND, INFECT, OR BURN (09/08/14) PACKED CELL TRANSFUSION (07/18/14) PERC ANGIOPLASTY OR ATHERECTOMY OF PRECER (EXTRACRAN) VES(S) (09/18/06) PERC INSERTION OF CAROTID ARTERY STENT(S) (09/18/06) PERFORMANCE OF URINARY FILTRATION, SINGLE (10/31/16) PROCEDURE ON SINGLE VESSEL (09/18/06) PROCEDURE ON TWO VESSELS (09/18/06) TRANSFUSE NONAUT RED BLOOD CELLS IN PERIPH VEIN, PERC (10/31/16) ULTRASONOGRAPHY OF RIGHT JUGULAR VEINS, GUIDANCE (10/31/16) ULTRASONOGRAPHY OF RIGHT UPPER EXTREMITY VEINS, GUIDANCE (04/08/16) ULTRASONOGRAPHY OF SUPERIOR VENA CAVA, GUIDANCE (12/13/15) UPPER LIMB ENDARTERECTOM (12/14/06) VACCINATION NEC (09/08/14) VENOUS CATHETERIZATION NEC (05/06/12) Family History: States: Unknown Family Hx - Social History Hx Tobacco Use: No Hx Alcohol Use: No Hx Substance Use: No - Immunization History Hx Tetanus Toxoid Vaccination: No
--- NOTE | 2016-11-14 19:25 | C.PDOC ---
History Of Present Illness 61 y/o female brought by EMS from retirement for altered mental status and vomiting. Patient has been in altered mental status since 1745 and is currently at ED unresponsive. Patient is on Dialysis x3 times a week, last dialysis was yesterday. Chief Complaint (Nursing): Altered Mental Status History Per: EMS History/Exam Limitations: Clinical Condition Usual Baseline: Non-responsive Past Medical History Reviewed: Historical Data, Nursing Documentation, Vital Signs Vital Signs: Last Vital Signs Temp 98.2 F 11/14/16 19:03 Pulse 109 H 11/14/16 20:19 Resp 18 11/14/16 20:19 BP 124/78 11/14/16 20:19 Pulse Ox 100 11/14/16 21:39 - Medical History PMH: Anemia, Anxiety, Asthma, COPD, Depression, Diabetes, Emphysema, HTN, Hypercholesterolemia, Hyperlipidemia, Peripheral Edema, Pneumonia, Chronic Kidney Disease Surgical History: - [facility] Procedures AMPUTATION STUMP NICKI (06/24/14) ANGIOPLASTY OR ATHERECTOMY OF OTHER NON-CORONARY VESSEL(S) (12/14/06) APPLICATION OF SPLINT (10/23/04) BELOW KNEE AMPUTAT NEC (12/14/06) CENTRAL VENOUS CATHETER PLACEMENT WITH GUIDANCE (01/30/15) CONTR ABD ARTERIOGRM NEC (10/28/06) CONTR CEREBR ARTERIOGRAM (09/27/04) CONTRAST AORTOGRAM (12/14/06) CONTRAST ARTERIOGRAM NEC (12/14/06) CONTRAST ARTERIOGRAM-LEG (10/28/06) CORONAR ARTERIOGR-2 CATH (08/17/06) DRAINAGE OF GALLBLADDER WITH DRAINAGE DEVICE, PERC APPROACH (02/21/15) ESOPHAGOGASTRODUODENOSCOPY [EGD] W/CLOSED BIOPSY (12/04/11) EXCIS DEBRIDE OF WOUND, INFECT, OR BURN (10/08/11) EXCISION OF SMALL INTESTINE, ENDO, DIAGN (06/26/16) EXCISION OF STOMACH, ENDO, DIAGN (02/21/15) FLUOROSCOPY R UP EXTREM VEIN W L OSM CONTRAST, GUIDANCE (04/08/16) INJECT ANTICOAGULANT (09/18/06) INJECT/INFUSE NEC (05/15/06) INSERT INFUSION DEV IN R INT JUGULAR VEIN, PERC (10/31/16) INSERTION OF INFUSION DEV INTO SUP VENA CAVA, PERC APPROACH (06/26/16) INSERTION OF [id number] PERIPHERAL VESSEL STENT(S) (10/28/06) INSERTION OF ONE VASCULAR STENT (09/18/06) INSERTION OF THREE VASCULAR STENTS (09/18/06) INTRODUCE OF OTH THERAP SUBST INTO RESP TRACT, VIA OPENING (02/21/15) LEFT HEART CARDIAC CATH (08/17/06) LT HEART ANGIOCARDIOGRAM (08/17/06) MAGNETIC RESONANCE IMAGING OF BRAIN AND BRAIN STEM (05/21/03) MRI OF OTHER AND UNSPECIFIED SITES (09/27/04) NEBULIZER THERAPY (05/26/12) NON-INVASIVE MECHANICAL VENTILATION (10/08/11) NONEXCIS DEBRID OF WOUND, INFECT, OR BURN (09/08/14) PACKED CELL TRANSFUSION (07/18/14) PERC ANGIOPLASTY OR ATHERECTOMY OF PRECER (EXTRACRAN) VES(S) (09/18/06) PERC INSERTION OF CAROTID ARTERY STENT(S) (09/18/06) PERFORMANCE OF URINARY FILTRATION, SINGLE (10/31/16) PROCEDURE ON SINGLE VESSEL (09/18/06) PROCEDURE ON TWO VESSELS (09/18/06) TRANSFUSE NONAUT RED BLOOD CELLS IN PERIPH VEIN, PERC (10/31/16) ULTRASONOGRAPHY OF RIGHT JUGULAR VEINS, GUIDANCE (10/31/16) ULTRASONOGRAPHY OF RIGHT UPPER EXTREMITY VEINS, GUIDANCE (04/08/16) ULTRASONOGRAPHY OF SUPERIOR VENA CAVA, GUIDANCE (12/13/15) UPPER LIMB ENDARTERECTOM (12/14/06) VACCINATION NEC (09/08/14) VENOUS CATHETERIZATION NEC (05/06/12) Family History: States: Unknown Family Hx - Social History Hx Tobacco Use: No Hx Alcohol Use: No Hx Substance Use: No - Immunization History Hx Tetanus Toxoid Vaccination: No Review Of Systems Review Of Systems: ROS cannot be obtained secondary to pt's inabilty to answer questions. Physical Exam - Physical Exam Appears: Other (Lethargic, Non verbal) Skin: Warm Oral Mucosa: Moist Cardiovascular: Rhythm Regular, No Murmur Respiratory: Normal Breath Sounds, No Rales, No Rhonchi, No Wheezing Gastrointestinal/Abdominal: Soft, No Tenderness, No Guarding, No Rebound Extremity: No Pedal Edema, Other (Bilateral Amputation above knees) Neurological/Psych: Other (Non-verbal, Unresponsive ) ED Course And Treatment - Laboratory Results Result Diagrams: 11/14/16 19:32 11/14/16 19:32 ECG: Interpreted By Me, Viewed By Me ECG Rhythm: Sinus Rhythm, Nonspecific Changes ECG Interpretation: No Acute Changes, Abnormal Interpretation Of ECG: NSR, non spc ST-T changes. Abnormal tarcings. Rate From EC O2 Sat by Pulse Oximetry: 100 (RA) Pulse Ox Interpretation: Normal Medical Decision Making Medical Decision Making: Patient intubated 7 1/2 tube pH 7.04 Elevated pCO2 Disposition Discussed With Dr.: Remi Blackwood Doctor Will See Patient In The: Hospital Counseled Patient/Family Regarding: Diagnosis - Disposition Referrals: Mark Sheikh MD [Staff Provider] - (for ICU admission) Disposition: HOSPITALIZED Disposition Time: 21:42 Condition: GUARDED - POA Present On Arrival: None - Clinical Impression Clinical Impression: Respiratory failure, COPD (chronic obstructive pulmonary disease), ESRD (end stage renal disease) on dialysis - Scribe Statement The provider has reviewed the documentation as recorded by the Scribjeremiah Samaniego All medical record entries made by the Scribe were at my direction and personally dictated by me. I have reviewed the chart and agree that the record accurately reflects my personal performance of the history, physical exam, medical decision making, and the department course for this patient. I have also personally directed, reviewed, and agree with the discharge instructions and disposition.
[2016-11-14 19:40] LABS: BASO % 0.5 % (0.0-2.0); EOS # 0.1 K/uL (0.0-0.7); EOS % 1.6 % (0.0-4.0); HEMOGLOBIN 13.2 g/dL (11.0-16.0); LYMPH # 0.6 K/uL (1.0-4.3); LYMPH % 7.2 % (20.0-40.0); MEAN CELL VOLUME 91.8 fL (81.0-99.0); MEAN CORPUSCULAR HEMOGLOBIN 28.6 pg (27.0-31.0); MEAN CORPUSCULAR HGB CONC 31.2 g/dL (33.0-37.0); MEAN PLATELET VOLUME 10.9 fL (7.2-11.7); MONO # 0.4 K/uL (0.0-0.8); NEUT # 7.3 K/uL (1.8-7.0); NEUT % 85.7 % (50.0-75.0); NRBC % 0.2 % (0.0-2.0); PLATELET COUNT 184 K/uL (130-400); RBC 4.62 Mil/uL (3.80-5.20); RED CELL DISTRIBUTION WIDTH 18.4 % (11.5-14.5); WHITE BLOOD COUNT 8.5 K/uL (4.8-10.8)
[2016-11-14 19:47] LABS: ALBUMIN 2.9 g/dL (3.5-5.0)
[2016-11-14 19:50] LABS: ALB/GLOB RATIO 0.8 (1.0-2.1)
--- NOTE | 2016-11-14 20:39 | CT ---
EXAM: CT Head Without Intravenous Contrast CLINICAL HISTORY: 61 years old, female; Signs and symptoms; Other: Unresponsive; Additional info: Unresponsiveness TECHNIQUE: Axial computed tomography images of the head/brain without intravenous contrast. This CT exam was performed using one or more of the following dose reduction techniques: automated exposure control, adjustment of the mA and/or kV according to patient size, and/or use of iterative reconstruction technique. EXAM DATE/TIME: Exam ordered 11/14/2016 7:22 PM COMPARISON: No relevant prior studies available. FINDINGS: Artifacts: Motion artifact degrades image quality. Brain: Low-density is noted within the periventricular white matter extending into the de leon radiata and centrum semiovale bilaterally. 3 mm focal low density in the right basal ganglia suggests small lacunar infarct. A nonspecific punctate gyral calcification is noted high in the right posterior parietal occipital lobe and is unchanged from previous. No hemorrhage. No edema. Ventricles: Unremarkable. No ventriculomegaly. Bones/joints: Unremarkable. No acute fracture. Soft tissues: There are multiple punctate calcifications noted within the subcutaneous fat overlying the bony calvarium. Some are tubular in nature suggesting a vascular etiology . Sinuses: Unremarkable as visualized. No acute sinusitis. Mastoid air cells: There is opacification of the mastoid air cells bilaterally. Other findings: There is mild age-appropriate atrophy. IMPRESSION: 1. No change from 06/26/2016 2. Small vessel ischemic change noted in the deep white matter. 3. 3 mm lacunar infarct in right basal ganglia. No change. 4. Bilateral mastoid air cell opacification. No change from previous..
[2016-11-14 21:09] LABS: VENOUS BLOOD GAS BASE EXCESS -0.9 mmol/L (0.0-2.0); VENOUS BLOOD GAS PCO2 124 mmHg (40-60); VENOUS BLOOD GAS PO2 66 mm/Hg (30-55); VENOUS BLOOD PH 7.04 (7.32-7.43)
[2016-11-14 21:14] LABS: ANISOCYTOSIS SLIGHT; BASOPHIL 1 % (0-2); LYMPHOCYTE 5 % (20-40); MONOCYTE 4 % (0-10); NEUTROPHIL 90 % (50-75); PLATELET ESTIMATE NORMAL (NORMAL); TOTAL CELLS COUNTED 100
[2016-11-14] MEDS ORDERED: Propofol 10 mg/ml Inj (20 ML) ONE (21:22)
[2016-11-14 21:38] LABS: SQUAMOUS EPITHIAL 25 /hpf (0-5); URINE BILIRUBIN NEGATIVE (NEGATIVE); URINE BLOOD 1+ (NEGATIVE); URINE CLARITY Turbid (Clear); URINE COLOR Yellow (YELLOW); URINE GLUCOSE (UA) 3+ mg/dL (Normal); URINE LEUKOCYTE ESTERASE 2+ Leu/uL (Negative); URINE NITRATE NEGATIVE (NEGATIVE); URINE PROTEIN 2+ mg/dL (NEGATIVE); URINE UROBILINOGEN NORMAL mg/dL (0.2-1.0)
[2016-11-14] MEDS ORDERED: Labetalol 25mg/5ml Syringe IV STA (22:06)
[2016-11-14] MEDS ORDERED: Labetalol 25mg/5ml Syringe ONE ×3 (22:13→23:42)
[2016-11-14] MEDS ORDERED: Labetalol 25mg/5ml Syringe IVP STA ×2 (22:50→23:36)
--- NOTE | 2016-11-14 23:28 | CP.PCM.HP ---
<Tala Delacruz - Last Filed: 11/15/16 03:35> History of Present Illness - History of Present Illness History of Present Illness: Chief Complaint: "Altered Mental Status" 61 year old female who presents to the emergency room for altered mental status. Unable to get a good history because patient was intubated and not alert. As per Emergency Room nurse the patient was admitted for altered mental status from the skilled nursing. Per the EMS they stated the patient is normally alert and oriented to person, time and place at baseline. PMD: as per skilled nursing records Dr. Lisset Bee History was noted from the skilled nursing: Past Medical History: Diabetes, Hypertension, hypercholesterolemia, peripheral neuropathy, peripheral vascular disease, chronic obstructive pulmonary disease, anemia, constipation, anxiety, GERD, urinary tract infections, obesity, glaucoma , insomnia, Chronic Kidney Disease Past Surgical History:Complete traumatic amputation at the knee level bilaterally Medications: unable to get information as patient is intubated Allergies: unable to get information as patient is intubated Family History:unable to get information as patient is intubated Social: Patient lives in [facility]: [place] Present on Admission - Present on Admission Any Indicators Present on Admission: Yes History of Uncontrolled Diabetes: Yes Review of Systems - Review of Systems Systems not reviewed;Unavailable: Intubated (Could not get ROS because the patient is intubated) Past Patient History - Infectious Disease Hx of Infectious Diseases: None - Past Medical History & Family History Past Medical History?: Yes - Past Social History Smoking Status: Never Smoked - CARDIAC Hx Hypercholesterolemia: Yes Hx Hypertension: Yes Hx Peripheral Edema: Yes - PULMONARY Hx Asthma: Yes Hx Chronic Obstructive Pulmonary Disease (COPD): Yes Hx Emphysema: Yes Hx Pneumonia: Yes - HEENT Hx HEENT Problems: Yes (WEARS RX GLASSES) Hx Glaucoma: Yes - RENAL Hx Chronic Kidney Disease: Yes - HEMATOLOGICAL/ONCOLOGICAL Hx Anemia: Yes - INTEGUMENTARY Hx Dermatological Problems: Yes Other/Comment: notes from last pt visit/previous triage:redness under both breasts and b/l abd folds, healed skin to buttocks and sacrum - GASTROINTESTINAL Hx Gastrointestinal Disorders: Yes Other/Comment: obesity - GENITOURINARY/GYNECOLOGICAL Hx Genitourinary Disorders: Yes Hx Incontinence: Yes Hx Urinary Tract Infection: Yes - PSYCHIATRIC Hx Anxiety: Yes Hx Depression: Yes Hx Substance Use: No - ANESTHESIA Hx Anesthesia: Yes Hx Anesthesia Reactions: No Hx Malignant Hyperthermia: No Meds Allergies/Adverse Reactions: Allergies Allergy/AdvReac Type Severity Reaction Status Date / Time cilastatin sodium Allergy RASH Verified 11/14/16 18:46 [From Primaxin] imipenem [From Primaxin] Allergy RASH Verified 11/14/16 18:46 oxycodone Allergy RASH Verified 11/14/16 18:46 Physical Exam - Constitutional Additional comments: Patient is intubated - Neck Exam Neck exam: Positive for: Normal Inspection - Respiratory Exam Additional comments: Patient is Intubated - Cardiovascular Exam Cardiovascular Exam: REGULAR RHYTHM, +S1, +S2 - GI/Abdominal Exam GI & Abdominal Exam: Normal Bowel Sounds, Soft - Neurological Exam Neurological exam: Altered Results - Vital Signs Recent Vital Signs: Last Vital Signs Temp 98.2 F 11/14/16 19:03 Pulse 93 H 11/14/16 23:22 Resp 19 11/14/16 23:22 BP 240/78 H 11/14/16 23:22 Pulse Ox 100 11/14/16 23:22 - Labs Result Diagrams: 11/14/16 19:32 11/14/16 19:32 Assessment & Plan - Assessment and Plan (Free Text) Assessment: 61 year old female who presents to the emergency room for altered mental status. Plan: 1.) Altered Mental Status * Intubated * Admitted to ICU * NPO Diet * f/u Chest X-ray * f/u with patient's Son: Corey Edwards 2.) Diabetes * Novolin 3.) Chronic Kidney Disease * Nephrology Consult: Dr. Ant Lee ---> help appreciated 4.) Hypertension * Hydralazine 10mg IVP Q6H * Labetalol 20mg 5.) COPD * Duoneb 3ml INH RQ2 PRN for shortness of breath * Duoneb 3ml INH RQ4 ELIZABETH .) Prophylaxis * Heparin 5,000 units IV Q12 * Protonix 40mg IVP Daily <Remi Blackwood - Last Filed: 11/15/16 06:27> Results - Vital Signs Recent Vital Signs: Last Vital Signs Temp 98.4 F 11/15/16 04:00 Pulse 113 H 11/15/16 04:09 Resp 18 11/15/16 04:09 BP 107/81 11/15/16 04:10 Pulse Ox 100 11/15/16 04:09 - Labs Result Diagrams: 11/14/16 19:32 11/14/16 19:32 Labs: Laboratory Results - last 24 hr 11/15/16 11/15/16 11/15/16 00:55 01:38 04:20 Puncture Site Rb Rr pCO2 30 L 36 pO2 72 L 229 H HCO3 26.1 23.8 ABG pH 7.51 H 7.41 ABG Total CO2 24.8 23.9 ABG O2 Saturation 98.5 H 99.7 H ABG Base Excess 1.5 -1.4 ABG Hemoglobin 12.2 13.4 ABG Carboxyhemoglobin 1.6 H 1.4 POC ABG HHb (Measured) 1.5 0.3 ABG Methemoglobin 1.4 1.4 Rg Test Na Pos A-a O2 Difference 318.0 154.0 Respiratory Index 4.4 0.7 Hgb O2 Saturation 95.5 96.9 Mechanical Rate 20 14 FiO2 60.0 60.0 Tidal Volume 450 450 PEEP 5 5 POC Glucose (mg/dL) 229 H 11/15/16 05:58 Puncture Site pCO2 pO2 HCO3 ABG pH ABG Total CO2 ABG O2 Saturation ABG Base Excess ABG Hemoglobin ABG Carboxyhemoglobin POC ABG HHb (Measured) ABG Methemoglobin Rg Test A-a O2 Difference Respiratory Index Hgb O2 Saturation Mechanical Rate FiO2 Tidal Volume PEEP POC Glucose (mg/dL) 150 H Assessment & Plan - Date & Time Date: 11/15/16 (I have seen and examined the patient. I agree with the findings and plan of care as documented by Dr. Delacruz. Patient with altered mental status. ABG showed hypercapnia. Intubated in ED. Admit to ICU for further management. Consult nephro for ESRD dependent on dialysis. Monitor for acute changes.) Time: 06:26 Attending/Attestation - Attestation I have personally seen and examined this patient.: Yes I have fully participated in the care of the patient.: Yes I have reviewed all pertinent clinical information: Yes
[2016-11-14] MEDS ORDERED: Propofol 10 mg/ml 1,000 MG/100 ML VIAL ONE (23:49)
--- NOTE | 2016-11-15 | CP.PCM.CON ---
History of Present Illness - History of Present Illness History of Present Illness: Attending: Remi Blackwood MD Reason for Consult: Critical Care Management Chief Complaint: AMS HPI: This hx is obtained from review of the Medical records and the halfway 's notes. She is a 61 years old female residing at [facility] and has hx of DM II; HTN; CKD and COPD. She was brought to the ED because of Change in Mental Status and vomiting. In the ED she was unresponsive. Her ABG indicated a PH of 7.04; PCO2 of 124; PO2 of 66 and HCO2 of 23. The patient was Intubated in the ED and placed on the mechanical ventilator. PMH: COPD with Emphysemia; DM II; HTN; CKD on Dialysis; Anxiety depressive disorder; GI bleed; glaucoma PSH: Bilateral AKA; Right IJ Permacath for dialysis SH: No Alcohol; No illegal drug use; No smoking; Live at [facility] FH: Unknown family history Allergies: Primaxin; Oxycodone Review of Systems - Review of Systems Systems not reviewed;Unavailable: Respiratory Distress, Altered Mental Status Review of Systems: Review of systems limited ecause of the patient's unresponsiveness. Past Patient History - Infectious Disease Hx of Infectious Diseases: None - Past Medical History & Family History Past Medical History?: Yes - Past Social History Smoking Status: Never Smoked Chewing Tobacco Use: No Cigar Use: No Alcohol: None Drugs: Denies Home Situation {Lives}: [facility] - CARDIAC Hx Hypercholesterolemia: Yes Hx Hypertension: Yes Hx Peripheral Edema: Yes - PULMONARY Hx Asthma: Yes Hx Chronic Obstructive Pulmonary Disease (COPD): Yes Hx Emphysema: Yes Hx Pneumonia: Yes - NEUROLOGICAL Hx Neurological Disorder: No - HEENT Hx HEENT Problems: Yes (WEARS RX GLASSES) Hx Glaucoma: Yes - RENAL Hx Chronic Kidney Disease: Yes - ENDOCRINE/METABOLIC Hx Diabetes Mellitus Type 2: Yes - HEMATOLOGICAL/ONCOLOGICAL Hx Anemia: Yes - INTEGUMENTARY Hx Dermatological Problems: Yes Other/Comment: notes from last pt visit/previous triage:redness under both breasts and b/l abd folds, healed skin to buttocks and sacrum - MUSCULOSKELETAL/RHEUMATOLOGICAL Hx Osteomyelitis: Yes - GASTROINTESTINAL Hx Gastrointestinal Disorders: Yes Other/Comment: obesity - GENITOURINARY/GYNECOLOGICAL Hx Genitourinary Disorders: Yes Hx Incontinence: Yes Hx Urinary Tract Infection: Yes - PSYCHIATRIC Hx Anxiety: Yes Hx Depression: Yes Hx Substance Use: No - SURGICAL HISTORY Other/Comment: bilateral AKA - ANESTHESIA Hx Anesthesia: Yes Hx Anesthesia Reactions: No Hx Malignant Hyperthermia: No Meds Allergies/Adverse Reactions: Allergies Allergy/AdvReac Type Severity Reaction Status Date / Time cilastatin sodium Allergy RASH Verified 11/14/16 18:46 [From Primaxin] imipenem [From Primaxin] Allergy RASH Verified 11/14/16 18:46 oxycodone Allergy RASH Verified 11/14/16 18:46 - Medications Medications: Current Medications Propofol (Diprivan) 1,000 mg in 100 mls @ 2.858 mls/hr IV .Q24H PRN; Protocol; 5 MCG/KG/MIN PRN Reason: TITRATE PER MD ORDER Physical Exam - Constitutional Appears: Other (Unresponsive) - Head Exam Additional comments: Oropharyngeal intubation. - Eye Exam Eye Exam: Normal appearance Pupil Exam: NORMAL ACCOMODATION - ENT Exam ENT Exam: Mucous Membranes Moist, Normal Exam, Normal External Ear Exam - Neck Exam Neck exam: Positive for: Normal Inspection. Negative for: Lymphadenopathy - Respiratory Exam Respiratory Exam: absent: Rales, Rhonchi, Wheezes - Cardiovascular Exam Cardiovascular Exam: REGULAR RHYTHM, RRR, +S1, +S2. absent: Gallop - GI/Abdominal Exam Additional comments: Obese, Soft, decreased bowel sounds, no viceromegalies - Rectal Exam Rectal Exam: Deferred - Extremities Exam Additional comments: Bilateral Above the kne amputation - Back Exam Back exam: NORMAL INSPECTION - Neurological Exam Additional comments: Intubated and on the mechanical ventilator. on Diprivan; no facial droop; Responds to pain DTR conserved. no focal neurological findings. - Skin Skin Exam: Dry, Intact, Normal Color, Warm Results - Vital Signs Recent Vital Signs: Last Vital Signs Temp 98.2 F 11/14/16 19:03 Pulse 93 H 11/14/16 23:22 Resp 19 11/14/16 23:22 BP 240/78 H 11/14/16 23:22 Pulse Ox 100 11/14/16 23:22 - Labs Result Diagrams: 11/14/16 19:32 11/14/16 19:32 - EKG Data EKG comments: NSR 100/min Proonged QT. - Imaging and Cardiology Chest x-ray Status: Image reviewed by me Additional comment: Dialysis catheter at right upper chest wall. cardiomyopathy , Haziness at the left lung base vs breast mass. CT scan - head Status: Image reviewed by me, Report reviewed by me Additional comment: Old 3mm lacunar infarct at right basal ganglia. Assessment & Plan - Assessment and Plan (Free Text) Assessment: #. Acute on chronic Hypercarbic Respiratory Failure #. Respiratory and Metabolic Acidosis #. AMS with Unresponsiveness secondary to CO2 narcosis #. Hypertensive Urgency #. Hypokalemia #. DM II #. COPD #.Morbid Obesity Plan: 61 years old female residing at [facility] and has hx of DM II ; HTN; CKD and COPD. She was brought to the ED because of Change in Mental Status and vomiting. In the ED she was unresponsive. Her VBG indicated a PH of 7.04; PCO2 of 124; PO2 of 66 and HCO2 of 23. The patient was Intubated in the ED. #. Acute on chronic Hypercarbic Respiratory Failure #. Respiratory and Metabolic Acidosis #. AMS with Unresponsiveness secondary to CO2 narcosis #. Hypertensive Urgency #. Hypokalemia #. DM II #. COPD #.Morbid Obesity # CKD Plan: - Admit to ICU - Mechanical ventilation settings AC 20; TV 450; PEEP 5; Fi o2 60% - Diprivan for sedation - Duoneb Q4h - Follow ABG - Patient received IV labetalol 20mg x3 with no improvement in blood pressure - [id number] IV given and Q6H - Will start Cardene Drip if BP is not controlled - NG or OG for medication and feeding. - Nephrology Dr Saeed - Date & Time Date: 11/15/16 Time: 00:00
[2016-11-15] MEDS: Propofol 10 mg/ml 1,000 MG/100 ML VIAL IV PRN ×6 (00:25→23:08)
[2016-11-15] MEDS ORDERED: (Novolin R) Insulin Human Regular 100 units/ml vial SC SCH (01:00)
[2016-11-15 01:03] LABS: ARTERIAL BLOOD GAS HCO3 26.1 mmol/L (21-28); ARTERIAL BLOOD GAS HEMOGLOBIN 12.2 g/dL (11.7-17.4); ARTERIAL BLOOD GAS O2 SAT 98.5 % (95-98); ARTERIAL BLOOD GAS PCO2 30 mm/Hg (35-45); ARTERIAL BLOOD GAS PH 7.51 (7.35-7.45); ARTERIAL BLOOD GAS PO2 72 mm/Hg (80-100); ARTERIAL BLOOD GAS TCO2 24.8 mmol/L (22-28)
[2016-11-15] MEDS ORDERED: Albuterol-Ipratrop 3 mg / 0.5 (3 ml) UD INH PRN (02:10)
[2016-11-15] MEDS: Albuterol-Ipratrop 3 mg / 0.5 (3 ml) UD INH SCH ×5 (03:06→19:52)
[2016-11-15 04:29] LABS: ABG ALLEN TEST POS; ARTERIAL BLOOD GAS HCO3 23.8 mmol/L (21-28); ARTERIAL BLOOD GAS HEMOGLOBIN 13.4 g/dL (11.7-17.4); ARTERIAL BLOOD GAS O2 SAT 99.7 % (95-98); ARTERIAL BLOOD GAS PCO2 36 mm/Hg (35-45); ARTERIAL BLOOD GAS PH 7.41 (7.35-7.45); ARTERIAL BLOOD GAS PO2 229 mm/Hg (80-100); ARTERIAL BLOOD GAS TCO2 23.9 mmol/L (22-28)
[2016-11-15 06:27] LABS: INR 1.1; PROTHROMBIN TIME 12.3 SECONDS (9.7-12.2)
[2016-11-15 06:35] LABS: ALBUMIN 2.5 g/dL (3.5-5.0)
[2016-11-15 06:39] LABS: ALB/GLOB RATIO 0.8 (1.0-2.1); CALCIUM 7.6 mg/dl (8.6-10.4)
[2016-11-15 06:48] LABS: BASO % 0.6 % (0.0-2.0); HEMOGLOBIN 12.9 g/dL (11.0-16.0); LYMPH # 0.6 K/uL (1.0-4.3); LYMPH % 6.7 % (20.0-40.0); MEAN CELL VOLUME 91.1 fL (81.0-99.0); MEAN CORPUSCULAR HEMOGLOBIN 29.1 pg (27.0-31.0); MEAN PLATELET VOLUME 11.2 fL (7.2-11.7); MONO # 0.5 K/uL (0.0-0.8); MONO % 6.2 % (0.0-10.0); NEUT # 7.3 K/uL (1.8-7.0); NEUT % 86.5 % (50.0-75.0); NRBC % 0.1 % (0.0-2.0); PLATELET COUNT 158 K/uL (130-400); RBC 4.44 Mil/uL (3.80-5.20); RED CELL DISTRIBUTION WIDTH 18.1 % (11.5-14.5); WHITE BLOOD COUNT 8.4 K/uL (4.8-10.8)
[2016-11-15] MEDS: (Novolin R) Insulin Human Regular 100 units/ml vial SC SCH ×3 (06:48→17:23)
--- NOTE | 2016-11-15 10:10 | CP.PCM.CON ---
History of Present Illness - History of Present Illness History of Present Illness: pt seen and examined, full consult is dictated #[id number] 1. esrd 2, htn 3.dm 4. cpod 5. acute resp. failure , hypoxic, on vent for hd today and tts Past Patient History - Infectious Disease Hx of Infectious Diseases: None - Past Medical History & Family History Past Medical History?: Yes - Past Social History Smoking Status: Never Smoked - CARDIAC Hx Hypercholesterolemia: Yes Hx Hypertension: Yes Hx Peripheral Edema: Yes - PULMONARY Hx Asthma: Yes Hx Chronic Obstructive Pulmonary Disease (COPD): Yes Hx Emphysema: Yes Hx Pneumonia: Yes - HEENT Hx HEENT Problems: Yes (WEARS RX GLASSES) Hx Glaucoma: Yes - RENAL Hx Chronic Kidney Disease: Yes - HEMATOLOGICAL/ONCOLOGICAL Hx Anemia: Yes - INTEGUMENTARY Hx Dermatological Problems: Yes Other/Comment: notes from last pt visit/previous triage:redness under both breasts and b/l abd folds, healed skin to buttocks and sacrum - GASTROINTESTINAL Hx Gastrointestinal Disorders: Yes Other/Comment: obesity - GENITOURINARY/GYNECOLOGICAL Hx Genitourinary Disorders: Yes Hx Incontinence: Yes Hx Urinary Tract Infection: Yes - PSYCHIATRIC Hx Anxiety: Yes Hx Depression: Yes Hx Substance Use: No - ANESTHESIA Hx Anesthesia: Yes Hx Anesthesia Reactions: No Hx Malignant Hyperthermia: No Meds Allergies/Adverse Reactions: Allergies Allergy/AdvReac Type Severity Reaction Status Date / Time cilastatin sodium Allergy RASH Verified 11/14/16 18:46 [From Primaxin] imipenem [From Primaxin] Allergy RASH Verified 11/14/16 18:46 oxycodone Allergy RASH Verified 11/14/16 18:46 - Medications Medications: Current Medications Albuterol/Ipratropium (Duoneb 3 Mg/0.5 Mg (3 Ml) Ud) 3 ml INH RQ4 [facility] Last Admin: 11/15/16 07:55 Dose: 3 ml Albuterol/Ipratropium (Duoneb 3 Mg/0.5 Mg (3 Ml) Ud) 3 ml INH RQ2 PRN PRN Reason: Shortness of Breath Heparin Sodium (Porcine) (Heparin) 5,000 units SC Q12 [facility] Last Admin: 11/15/16 09:26 Dose: 5,000 units Hydralazine HCl (Apresoline) 10 mg IVP Q6H [facility] Last Admin: 11/15/16 08:11 Dose: 10 mg Propofol (Diprivan) 1,000 mg in 100 mls @ 2.858 mls/hr IV .Q24H PRN; Protocol; 5 MCG/KG/MIN PRN Reason: TITRATE PER MD ORDER Last Admin: 11/15/16 08:04 Dose: 20 mcg/kg/min, 11.43 mls/hr Insulin Human Regular (Novolin R) 0 unit SC Q6H [facility] PRN Reason: Protocol Last Admin: 11/15/16 06:48 Dose: Not Given Ondansetron HCl (Zofran Inj) 4 mg IVP Q6H PRN PRN Reason: Nausea/Vomiting Pantoprazole Sodium (Protonix Inj) 40 mg IVP DAILY [facility] Last Admin: 11/15/16 09:26 Dose: 40 mg Results - Vital Signs Recent Vital Signs: Last Vital Signs Temp 99.6 F 11/15/16 08:00 Pulse 102 H 11/15/16 10:00 Resp 14 11/15/16 10:00 BP 148/37 L 11/15/16 10:00 Pulse Ox 100 11/15/16 10:00 - Labs Result Diagrams: 11/15/16 06:17 11/15/16 06:17 Labs: Laboratory Results - last 24 hr 11/15/16 11/15/16 11/15/16 00:55 01:38 04:20 WBC RBC Hgb Hct MCV MCH MCHC RDW Plt Count MPV Neut % (Auto) Lymph % (Auto) [place] % (Auto) Eos % (Auto) Baso % (Auto) Neut # Lymph # [place] # Eos # Baso # PT INR Puncture Site Rb Rr pCO2 30 L 36 pO2 72 L 229 H HCO3 26.1 23.8 ABG pH 7.51 H 7.41 ABG Total CO2 24.8 23.9 ABG O2 Saturation 98.5 H 99.7 H ABG Base Excess 1.5 -1.4 ABG Hemoglobin 12.2 13.4 ABG Carboxyhemoglobin 1.6 H 1.4 POC ABG HHb (Measured) 1.5 0.3 ABG Methemoglobin 1.4 1.4 Rg Test Na Pos A-a O2 Difference 318.0 154.0 Respiratory Index 4.4 0.7 Hgb O2 Saturation 95.5 96.9 Mechanical Rate 20 14 FiO2 60.0 60.0 Tidal Volume 450 450 PEEP 5 5 Sodium Potassium Chloride Carbon Dioxide Anion Gap BUN Creatinine Est GFR ( Amer) Est GFR (Non-Af Amer) POC Glucose (mg/dL) 229 H Random Glucose Calcium Phosphorus Magnesium Total Bilirubin AST ALT Alkaline Phosphatase Total Protein Albumin Globulin Albumin/Globulin Ratio 11/15/16 11/15/16 11/15/16 05:58 06:17 06:17 WBC 8.4 RBC 4.44 Hgb 12.9 Hct 40.4 MCV 91.1 MCH 29.1 MCHC 32.0 L RDW 18.1 H Plt Count 158 MPV 11.2 Neut % (Auto) 86.5 H Lymph % (Auto) 6.7 L [place] % (Auto) 6.2 Eos % (Auto) 0.0 Baso % (Auto) 0.6 Neut # 7.3 H Lymph # 0.6 L [place] # 0.5 Eos # 0.0 Baso # 0.0 PT 12.3 H INR 1.1 Puncture Site pCO2 pO2 HCO3 ABG pH ABG Total CO2 ABG O2 Saturation ABG Base Excess ABG Hemoglobin ABG Carboxyhemoglobin POC ABG HHb (Measured) ABG Methemoglobin Rg Test A-a O2 Difference Respiratory Index Hgb O2 Saturation Mechanical Rate FiO2 Tidal Volume PEEP Sodium Potassium Chloride Carbon Dioxide Anion Gap BUN Creatinine Est GFR ( Amer) Est GFR (Non-Af Amer) POC Glucose (mg/dL) 150 H Random Glucose Calcium Phosphorus Magnesium Total Bilirubin AST ALT Alkaline Phosphatase Total Protein Albumin Globulin Albumin/Globulin Ratio 11/15/16 06:17 WBC RBC Hgb Hct MCV MCH MCHC RDW Plt Count MPV Neut % (Auto) Lymph % (Auto) [place] % (Auto) Eos % (Auto) Baso % (Auto) Neut # Lymph # [place] # Eos # Baso # PT INR Puncture Site pCO2 pO2 HCO3 ABG pH ABG Total CO2 ABG O2 Saturation ABG Base Excess ABG Hemoglobin ABG Carboxyhemoglobin POC ABG HHb (Measured) ABG Methemoglobin Gr Test A-a O2 Difference Respiratory Index Hgb O2 Saturation Mechanical Rate FiO2 Tidal Volume PEEP Sodium 136 Potassium 3.1 L Chloride 99 Carbon Dioxide 24 Anion Gap 16 BUN 16 Creatinine 2.1 H Est GFR ( Amer) 29 Est GFR (Non-Af Amer) 24 POC Glucose (mg/dL) Random Glucose 156 H Calcium 7.6 L Phosphorus 4.1 Magnesium 2.0 Total Bilirubin 0.7 AST 23 ALT 18 Alkaline Phosphatase 57 Total Protein 5.7 L Albumin 2.5 L Globulin 3.2 Albumin/Globulin Ratio 0.8 L
[2016-11-15 10:18] LABS: ANISOCYTOSIS SLIGHT; LYMPHOCYTE 7 % (20-40); MONOCYTE 4 % (0-10); NEUTROPHIL 89 % (50-75); PLATELET ESTIMATE NORMAL (NORMAL); TOTAL CELLS COUNTED 100
[2016-11-15 10:19] LABS: LARGE PLATELETS PRESENT; POIKILOCYTOSIS SLIGHT; POLYCHROMIC SLIGHT; TARGET CELLS SLIGHT; TEARDROP CELLS SLIGHT
[2016-11-15 10:20] LABS: OVALOCYTES SLIGHT
--- NOTE | 2016-11-15 12:10 | RAD ---
HISTORY: S/P INTUBATION COMPARISON: 10/06/2016 FINDINGS: LUNGS: No active pulmonary disease. PLEURA: Hazy opacity at left costophrenic angle suggests possible small left pleural effusion. No evidence of right pleural effusion. CARDIOVASCULAR: Normal heart size. Endotracheal tube tip positioned approximately 5.9 cm above the tracheal lottie. Nasogastric tube extends to left upper quadrant of abdomen. Right tunneled central venous dialysis catheter. OSSEOUS STRUCTURES: No significant abnormalities. VISUALIZED UPPER ABDOMEN: Normal. OTHER FINDINGS: None. IMPRESSION: Possible small left pleural effusion. ET tube, NG tube grossly appropriate position.
--- NOTE | 2016-11-15 12:15 | RAD ---
HISTORY: Resp failure on vent COMPARISON: 11/14/2016 FINDINGS: LUNGS: No infiltrate. Linear atelectasis mid left lung. PLEURA: Possible small left pleural effusion. No pneumothorax. CARDIOVASCULAR: ET tube, NG tube and tunneled central venous dialysis catheter are all grossly unchanged. OSSEOUS STRUCTURES: No significant abnormalities. VISUALIZED UPPER ABDOMEN: Normal. OTHER FINDINGS: None. IMPRESSION: Possible small left pleural effusion. Lines and tubes are unchanged.
[2016-11-15] MEDS: MethylPREDNISolone 40 mg Vial IVP SCH ×2 (13:10→21:36)
--- NOTE | 2016-11-15 15:37 | CON ---
DATE: 11/15/2016 REQUESTING PHYSICIAN: Dr. Remi Blackwood. REASON FOR RENAL CONSULTATION: End-stage renal disease on hemodialysis 3 times a week, Thursday, , Thursday. HISTORY OF PRESENT ILLNESS: The patient is a 61-year-old obese female who is a resident of [facility] for a long time with a past medical history significant for hypertension, cuca betes, COPD, asthma, chronic kidney disease, bilateral AKA, anemia with a past medical history signif icant for severe anemia requiring transfusion on the previous admission, was status post cardiac cath , recently was started on hemodialysis, apparently in [facility] a few weeks ago, now patient w as admitted from the [facility] after she vomited and altered mental status and patient was brought to the Emergency Room. In the Emergency Room, patient was found to have severe CO2 reten tion and pH of 7.0, intubated in the Emergency Room and admitted to ICU and renal consult is requeste d for continuation of hemodialysis. The patient is not in distress, opens eyes to verbal stimuli. PAST MEDICAL HISTORY: Significant again for hypertension, longstanding diabetes, COPD, asthma, bilat eral AKA, severe anemia, status post cardiac cath. PAST SURGICAL HISTORY: Bilateral AKA's and right internal jugular Perm-A-Cath placement, status post cardiac cath. ALLERGIES: ALLERGIC TO CILASTATIN, IMIPENEM AND OXYCODONE. SOCIAL HISTORY: No smoking, no alcohol, no drugs. PERSONAL HISTORY: The patient is a resident of [facility]. CURRENT MEDICATIONS: Include as follows: Hydralazine 10 mg IV q. 6 hours, Diprivan IV, DuoNeb inhal er, subcutaneous heparin 5000 q. 12 hours, Novolin R for sliding scale, Protonix 40 mg IV daily, Solu -Medrol 40 mg IV q. 8 hours, Zofran 4 mg IV q. 6 hours. FAMILY HISTORY: Not significant. REVIEW OF SYSTEMS: Significant for acute altered mental status, vomiting, severe respiratory acidosi s and hypoxia, on ventilator. All other review of systems are reviewed and are negative. PHYSICAL EXAMINATION: VITAL SIGNS: Blood pressure 148/37, pulse 102, respirations 14, temperature 99.6, saturation 100%, h eight 4 feet 10 inches, weight is 202 pounds. GENERAL: The patient is a 61-year-old elderly female on ventilator, well built, well nourished, open s eyes to verbal stimuli. HEENT: Pupils normal, react to light and accommodation. Conjunctivae pink. Sclerae anicteric. Ton lorena is moist. NECK: Trachea is midline, on ventilator. LUNGS: Symmetric on both sides. Bilateral breath sounds present. No crackles. CARDIOVASCULAR: [place] in the fifth intercostal space midclavicular line. S1 and S2 audible. No murm ur or gallop. ABDOMEN: Normal in appearance, soft, tympanic. No guarding, no rigidity. No hepatosplenomegaly. CENTRAL NERVOUS SYSTEM: The patient is on ventilator, on Diprivan. EXTREMITIES: Bilateral AKA's. LABORATORY DATA: Includes as follows: As of 11/15/2016, WBC 8.4, hemoglobin 12.9, hematocrit is 40. 4, platelet 158. Neutrophils 89, lymphs 7, monos 4. PT 12.3, INR 1.1. ABG on admission last night on 11/14/2016, 0821 hours, pH 7.0, pCO2 124, bicarbonate is 23.8, saturation 90.8, this is VBG. CURRENT LABORATORY DATA: Includes ABG 7.41, pCO2 36, pO2 is 229, saturation 99.7. Vent setting AC 1 4, tidal volume 450, FiO2 60%, PEEP of 5. Sodium 136, potassium 3.1, chloride 99, CO2 24, BUN 16, cr eatinine 2.1, glucose 156, calcium 7.6, phosphorus 4.1, magnesium 2.0. Total bilirubin 0.7, AST 23, ALT 18, alkaline phosphatase is 57, total protein 5.7, albumin is 2.5. Urinalysis: Yellow, turbid, pH 6, specific gravity 1.027, glucose 3+, protein 2+, ketones 1+, blood 1+, nitrites negative, biliru bin negative, urobilinogen normal, leukocyte esterase 2+, WBC is 686, RBC 84. SUMMARY: The patient is a 61-year-old elderly female with a history of hypertension, diabetes, anemi a, bilateral above-knee amputations, chronic obstructive pulmonary disease, asthma, anemia, status po st transfusion in the past, who was recently started on hemodialysis about 2 weeks ago in [facility] by Dr. Hilario and Dr. Arias's group, was admitted with respiratory failure, vomiting, altered mental status and CO2 retention. 1. End-stage renal disease. Continue hemodialysis 3 times a week, Thursday, , Thursday. 2. Acute respiratory failure, hypoxic. Continue mechanical ventilation and follow with pulmonary. 3. Hypertension. Blood pressure is stable. Continue her current medication. 4. Diabetes. Monitor sugars. PLAN: Try to contact patient's next of kin for consent for dialysis. Unable to reach the family, le ft a message to the patient's son. We will try to reach out again. Will schedule for hemodialysis t sylvester and requested ICU attending to contact the patient's family to obtain consent if possible. Thank you for allowing me to participate in your patient's care. Asha Saeed MD cc: [id number] TT: 11/15/2016 15:36:52 Confirmation # [id number] Dictation # [id number] lauro
--- NOTE | 2016-11-15 18:05 | CP.PCM.PN ---
Subjective - Date & Time of Evaluation Date of Evaluation: 11/15/16 Time of Evaluation: 18:00 - Subjective Subjective: Medical Attending Note Follow-up: Acute Respiratory Failure Patient seen and examined at bedside. Patient receiving dialysis at bedside. patient is awake, sedated, unable to answer questions given clinical state. Objective - Vital Signs/Intake and Output Vital Signs (last 24 hours): Temp Pulse Resp BP Pulse Ox 98.4 F 102 H 14 129/45 L 100 11/15/16 17:50 11/15/16 17:50 11/15/16 17:00 11/15/16 17:50 11/15/16 17:50 Intake and Output: 11/15/16 11/15/16 06:59 18:59 Intake Total 55.0 381 Output Total 185 62 Balance -130.0 319 - Medications Medications: Current Medications Albuterol/Ipratropium (Duoneb 3 Mg/0.5 Mg (3 Ml) Ud) 3 ml INH RQ4 [facility] Last Admin: 11/15/16 11:18 Dose: 3 ml Albuterol/Ipratropium (Duoneb 3 Mg/0.5 Mg (3 Ml) Ud) 3 ml INH RQ2 PRN PRN Reason: Shortness of Breath Heparin Sodium (Porcine) (Heparin) 5,000 units SC Q12 [facility] Last Admin: 11/15/16 09:26 Dose: 5,000 units Hydralazine HCl (Apresoline) 10 mg IVP Q6H [facility] Last Admin: 11/15/16 13:17 Dose: 10 mg Propofol (Diprivan) 1,000 mg in 100 mls @ 2.858 mls/hr IV .Q24H PRN; Protocol; 5 MCG/KG/MIN PRN Reason: TITRATE PER MD ORDER Last Admin: 11/15/16 17:17 Dose: 20 mcg/kg/min, 11.43 mls/hr Insulin Human Regular (Novolin R) 0 unit SC Q6H [facility]ETH PRN Reason: Protocol Last Admin: 11/15/16 17:23 Dose: Not Given Methylprednisolone (Solu-Medrol) 40 mg IVP Q8 [facility] Last Admin: 11/15/16 13:10 Dose: 40 mg Ondansetron HCl (Zofran Inj) 4 mg IVP Q6H PRN PRN Reason: Nausea/Vomiting Pantoprazole Sodium (Protonix Inj) 40 mg IVP DAILY [facility] Last Admin: 11/15/16 09:26 Dose: 40 mg - Labs Labs: 11/15/16 06:17 11/15/16 06:17 PT 12.3 SECONDS (9.7-12.2) H 11/15/16 06:17 INR 1.1 11/15/16 06:17 - Constitutional Appears: Non-toxic, No Acute Distress - Head Exam Head Exam: NORMAL INSPECTION Additional comments: on dialysis intubated opens eyes to verbal commands - Eye Exam Eye Exam: absent: Nystagmus, Scleral icterus - ENT Exam ENT Exam: Mucous Membranes Moist - Respiratory Exam Respiratory Exam: Decreased Breath Sounds, NORMAL BREATHING PATTERN. absent: Respiratory Distress, Stridor Additional comments: intubated - Cardiovascular Exam Cardiovascular Exam: Tachycardia, +S1, +S2 - GI/Abdominal Exam GI & Abdominal Exam: Soft, Normal Bowel Sounds. absent: Distended, Firm, Guarding, Rigid, Tenderness, Rebound - Extremities Exam Additional comments: bilateral AKA - Neurological Exam Neurological Exam: Awake - Skin Skin Exam: Dry, Normal Color, Warm Assessment and Plan (1) Acute respiratory failure Assessment & Plan: Intubated in the ED on admission PH: 7.04, CO2: 124 on admission history of COPD Pulmonary consult (Dr. Quach)--f/u recommendations Duonebs 3ml INH RQ4 HR Solumedrol 40mg IVP Q 8 hours On sedation Chest xray (11/15/16): possible small left pleural effusion. Line and tubes are unchanged Status: Acute (2) COPD (chronic obstructive pulmonary disease) Assessment & Plan: Pulmonary Consult (Dr. Quach)-->on board help appreciated Status: Chronic (3) Hyperlipidemia Assessment & Plan: Lipid panel in AM Status: Chronic (4) Congestive heart failure Assessment & Plan: Echocardiogram (10/02/16): left ventricle systolic function is normal, EF: 65-70% , no aortic regurgitation is present, mitral regurgitation is mild, mild trciuspid regurgitation, mild pulmonary hypertension, mild pulmonic valvular regurgitation patient recently started on dialysis about 2 weeks ago Status: Chronic (5) Diabetes mellitus Assessment & Plan: * Uncontrolled * Accuchecks Q6H * insulin sliding scale subq6H * Pending [id number] Status: Chronic (6) ESRD (end stage renal disease) on dialysis Assessment & Plan: Nephrology consult, Dr. Saeed, help appreciated Patient recently started on dialysis about 2 weeks ago at [place] per review of EMR patient is currently on dialysis Status: Chronic (7) HTN (hypertension) Assessment & Plan: Patient is currently on dialysis Monitor blood pressure Status: Chronic (8) Prophylactic measure Assessment & Plan: heparin 5000 units subq 12 hours Protonix 40mg IV q daily for GI ppx Pending blood and urine cultures Status: Acute
[2016-11-16] MEDS: Albuterol-Ipratrop 3 mg / 0.5 (3 ml) UD INH SCH ×5 (00:16→15:59)
[2016-11-16] MEDS: Propofol 10 mg/ml 1,000 MG/100 ML VIAL IV PRN ×7 (04:01→23:18)
[2016-11-16 05:38] LABS: ARTERIAL BLOOD GAS HCO3 29.2 mmol/L (21-28); ARTERIAL BLOOD GAS HEMOGLOBIN 11.1 g/dL (11.7-17.4); ARTERIAL BLOOD GAS O2 SAT 99.4 % (95-98); ARTERIAL BLOOD GAS PCO2 37 mm/Hg (35-45); ARTERIAL BLOOD GAS PO2 247 mm/Hg (80-100)
[2016-11-16] MEDS: (Novolin R) Insulin Human Regular 100 units/ml vial SC SCH ×4 (06:06→17:33)
[2016-11-16] MEDS: MethylPREDNISolone 40 mg Vial IVP SCH ×3 (06:07→21:49)
[2016-11-16 06:21] LABS: PROTHROMBIN TIME 11.5 SECONDS (9.7-12.2)
[2016-11-16 06:26] LABS: CALCIUM 7.4 mg/dl (8.6-10.4); HDL CHOLESTEROL 50 mg/dL (30-70)
[2016-11-16 06:37] LABS: LDL CHOLESTEROL 62 mg/dL (0-129)
--- NOTE | 2016-11-16 08:27 | CP.CCUPN ---
CCU Subjective - Physician Review Events Since Last Encounter (Free Text): 11/16/16 08:27 Patient with a history of end-stage renal disease on dialysis hypertension diabetes COPD hypercapnic respiratory failure admitted with acute respiratory failure, intubated currently on ventilator. Patient has a bilateral a below-knee amputation. Peripheral vascular disease. Patient also has a right-sided hemodialysis catheter. Currently sedated. On ventilator. Oxygen is improving. PH is improving. Patient had low-grade fever last night. Currently having diarrhea. Opening her eyes. On examination: Vital signs reviewed Patient is on ventilator. Chest bilateral good air entry, minimal expiratory wheezing noted regular heart sound, abdomen nontender. Extremities patient has a bilateral a bony amputation. Sacral healed decubiti noted Patient's labs reviewed in Chest x-ray clear lungs noted Assessment and recommendation: 60-year-old female with history of end-stage renal disease, on dialysis, hypertension, diabetes, COPD, chronic hypercapnia, with a possible chronic respiratory failure, admitted with acute exacerbation of respiratory failure, on ventilator. Patient received is improving. We will plan CPAP trial today. Reduce FiO2. Patient received dialysis. We will do the culture and microbiology workup. Low-grade fever. We'll start the patient on IV antibiotic if needed. And will follow the patient CCU Objective - Vital Signs / Intake & Output Vital Signs (Last 4 hours): Vital Signs Pulse Resp BP Pulse Ox 11/16/16 07:00 97 H 16 130/87 100 11/16/16 06:00 99 H 14 141/66 100 11/16/16 05:00 97 H 14 146/50 L 100 Intake and Output (Last 8hrs): Intake & Output 11/15/16 11/16/16 11/16/16 22:59 06:59 14:59 Intake Total 517.3 545.5 146.5 Output Total 14 10 0 Balance 503.3 535.5 146.5 Weight 202 lb 6.502 oz 212 lb 6 oz Intake: IV 250 200 100 Intake, IV Amount 107.3 170.5 16.5 Left Hand 107.3 170.5 16.5 Tube Feeding 160 175 30 Output: Urine 14 10 0 2-way Urethral 14 10 0 Other: # Bowel Movements 1 - Medications Active Medications: Active Medications Generic Name Dose Route Start Last Admin Trade Name Freq PRN Reason Stop Dose Admin Albuterol/Ipratropium 3 ml 11/15/16 04:00 06/25/17 07:47 Duoneb 3 Mg/0.5 Mg (3 Ml) Ud INH 3 ml RQ4 ELIZABETH Administration Albuterol/Ipratropium 3 ml 11/15/16 02:10 Duoneb 3 Mg/0.5 Mg (3 Ml) Ud INH RQ2 PRN Shortness of Breath Heparin Sodium (Porcine) 5,000 units 11/15/16 10:00 11/15/16 21:35 Heparin SC 5,000 units Q12 ELIZABETH Administration Hydralazine HCl 10 mg 11/15/16 02:15 11/16/16 07:59 Apresoline IVP 10 mg Q6H ELIZABETH Administration Propofol 1,000 mg in 100 mls @ 2.858 mls/hr 11/14/16 23:47 11/16/16 07:15 Diprivan IV 30 mcg/kg/min .Q24H PRN 17.146 mls/hr TITRATE PER MD ORDER Administration Protocol 5 MCG/KG/MIN Insulin Human Regular 0 unit 11/15/16 06:00 11/16/16 06:06 Novolin R SC 2 unit Q6H ELIZABETH Administration Protocol Methylprednisolone 40 mg 11/15/16 14:00 11/16/16 06:07 Solu-Medrol IVP 40 mg Q8 ELIZABETH Administration Ondansetron HCl 4 mg 11/15/16 00:37 Zofran Inj IVP Q6H PRN Nausea/Vomiting Pantoprazole Sodium 40 mg 11/15/16 10:00 11/15/16 09:26 Protonix Inj IVP 40 mg DAILY ELIZABETH Administration - Patient Studies Lab Studies: Lab Studies 11/16/16 11/16/16 11/16/16 Range/Units 06:08 06:08 06:08 Neutrophils % (Manual) (50-75) % Lymphocytes % (Manual) (20-40) % Monocytes % (Manual) (0-10) % Platelet Estimate (NORMAL) Large Platelets Polychromasia Poikilocytosis (manual Anisocytosis (manual) Target Cells Tear Drop Cells Ovalocytes PT 11.5 (9.7-12.2) SECONDS INR 1.0 APTT 31 (21-34) SECONDS Puncture Site pCO2 (35-45) mm/Hg pO2 (80-100) mm/Hg HCO3 (21-28) mmol/L ABG pH (7.35-7.45) ABG Total CO2 (22-28) mmol/L ABG O2 Saturation (95-98) % ABG Base Excess (-2.0-3.0) mmol/L ABG Hemoglobin (11.7-17.4) g/dL ABG Carboxyhemoglobin (0.5-1.5) % POC ABG HHb (Measured) (0.0-5.0) % ABG Methemoglobin (0.0-3.0) % Rg Test A-a O2 Difference mm/Hg Respiratory Index Hgb O2 Saturation (95.0-98.0) % Mechanical Rate FiO2 % Tidal Volume PEEP Sodium 132 (132-148) mmol/L Potassium 2.7 L (3.6-5.2) mmol/L Chloride 96 L (98-107) mmol/L Carbon Dioxide 26 (22-30) mmol/L Anion Gap 13 (10-20) BUN 14 (7-17) mg/dL Creatinine 1.8 H (0.7-1.2) MG/DL Est GFR ( Amer) 34 Est GFR (Non-Af Amer) 28 POC Glucose (mg/dL) (65-110) mg/dL Random Glucose 212 H (65-105) mg/dL Calcium 7.4 L (8.6-10.4) mg/dl Triglycerides 159 H D (0-149) mg/dL Cholesterol 138 (0-199) mg/dL LDL Cholesterol Direct 62 (0-129) mg/dL HDL Cholesterol 50 (30-70) mg/dL 11/16/16 11/16/16 11/16/16 Range/Units 05:33 05:28 00:43 Neutrophils % (Manual) (50-75) % Lymphocytes % (Manual) (20-40) % Monocytes % (Manual) (0-10) % Platelet Estimate (NORMAL) Large Platelets Polychromasia Poikilocytosis (manual Anisocytosis (manual) Target Cells Tear Drop Cells Ovalocytes PT (9.7-12.2) SECONDS INR APTT (21-34) SECONDS Puncture Site Rb pCO2 37 (35-45) mm/Hg pO2 247 H (80-100) mm/Hg HCO3 29.2 H (21-28) mmol/L ABG pH 7.50 H (7.35-7.45) ABG Total CO2 30.0 H (22-28) mmol/L ABG O2 Saturation 99.4 H (95-98) % ABG Base Excess 5.5 H (-2.0-3.0) mmol/L ABG Hemoglobin 11.1 L (11.7-17.4) g/dL ABG Carboxyhemoglobin 1.4 (0.5-1.5) % POC ABG HHb (Measured) 0.6 (0.0-5.0) % ABG Methemoglobin 1.3 (0.0-3.0) % Rg Test Na A-a O2 Difference -8.0 mm/Hg Respiratory Index 0 Hgb O2 Saturation 96.7 (95.0-98.0) % Mechanical Rate 16 FiO2 40.0 % Tidal Volume 500 PEEP 5 Sodium (132-148) mmol/L Potassium (3.6-5.2) mmol/L Chloride (98-107) mmol/L Carbon Dioxide (22-30) mmol/L Anion Gap (10-20) BUN (7-17) mg/dL Creatinine (0.7-1.2) MG/DL Est GFR ( Amer) Est GFR (Non-Af Amer) POC Glucose (mg/dL) 226 H 224 H (65-110) mg/dL Random Glucose (65-105) mg/dL Calcium (8.6-10.4) mg/dl Triglycerides (0-149) mg/dL Cholesterol (0-199) mg/dL LDL Cholesterol Direct (0-129) mg/dL HDL Cholesterol (30-70) mg/dL 11/15/16 11/15/16 11/15/16 Range/Units 17:21 11:34 06:17 Neutrophils % (Manual) 89 H (50-75) % Lymphocytes % (Manual) 7 L (20-40) % Monocytes % (Manual) 4 (0-10) % Platelet Estimate Normal (NORMAL) Large Platelets Present Polychromasia Slight Poikilocytosis (manual Slight Anisocytosis (manual) Slight Target Cells Slight Tear Drop Cells Slight Ovalocytes Slight PT (9.7-12.2) SECONDS INR APTT (21-34) SECONDS Puncture Site pCO2 (35-45) mm/Hg pO2 (80-100) mm/Hg HCO3 (21-28) mmol/L ABG pH (7.35-7.45) ABG Total CO2 (22-28) mmol/L ABG O2 Saturation (95-98) % ABG Base Excess (-2.0-3.0) mmol/L ABG Hemoglobin (11.7-17.4) g/dL ABG Carboxyhemoglobin (0.5-1.5) % POC ABG HHb (Measured) (0.0-5.0) % ABG Methemoglobin (0.0-3.0) % Rg Test A-a O2 Difference mm/Hg Respiratory Index Hgb O2 Saturation (95.0-98.0) % Mechanical Rate FiO2 % Tidal Volume PEEP Sodium (132-148) mmol/L Potassium (3.6-5.2) mmol/L Chloride (98-107) mmol/L Carbon Dioxide (22-30) mmol/L Anion Gap (10-20) BUN (7-17) mg/dL Creatinine (0.7-1.2) MG/DL Est GFR ( Amer) Est GFR (Non-Af Amer) POC Glucose (mg/dL) 139 H 153 H (65-110) mg/dL Random Glucose (65-105) mg/dL Calcium (8.6-10.4) mg/dl Triglycerides (0-149) mg/dL Cholesterol (0-199) mg/dL LDL Cholesterol Direct (0-129) mg/dL HDL Cholesterol (30-70) mg/dL Laboratory Results - last 24 hr 11/15/16 11/15/16 11/15/16 06:17 11:34 17:21 Neutrophils % (Manual) 89 H Lymphocytes % (Manual) 7 L Monocytes % (Manual) 4 Platelet Estimate Normal Large Platelets Present Polychromasia Slight Poikilocytosis (manual Slight Anisocytosis (manual) Slight Target Cells Slight Tear Drop Cells Slight Ovalocytes Slight PT INR APTT Puncture Site pCO2 pO2 HCO3 ABG pH ABG Total CO2 ABG O2 Saturation ABG Base Excess ABG Hemoglobin ABG Carboxyhemoglobin POC ABG HHb (Measured) ABG Methemoglobin Rg Test A-a O2 Difference Respiratory Index Hgb O2 Saturation Mechanical Rate FiO2 Tidal Volume PEEP Sodium Potassium Chloride Carbon Dioxide Anion Gap BUN Creatinine Est GFR ( Amer) Est GFR (Non-Af Amer) POC Glucose (mg/dL) 153 H 139 H Random Glucose Calcium Triglycerides Cholesterol LDL Cholesterol Direct HDL Cholesterol 11/16/16 11/16/16 11/16/16 00:43 05:28 05:33 Neutrophils % (Manual) Lymphocytes % (Manual) Monocytes % (Manual) Platelet Estimate Large Platelets Polychromasia Poikilocytosis (manual Anisocytosis (manual) Target Cells Tear Drop Cells Ovalocytes PT INR APTT Puncture Site Rb pCO2 37 pO2 247 H HCO3 29.2 H ABG pH 7.50 H ABG Total CO2 30.0 H ABG O2 Saturation 99.4 H ABG Base Excess 5.5 H ABG Hemoglobin 11.1 L ABG Carboxyhemoglobin 1.4 POC ABG HHb (Measured) 0.6 ABG Methemoglobin 1.3 Rg Test Na A-a O2 Difference -8.0 Respiratory Index 0 Hgb O2 Saturation 96.7 Mechanical Rate 16 FiO2 40.0 Tidal Volume 500 PEEP 5 Sodium Potassium Chloride Carbon Dioxide Anion Gap BUN Creatinine Est GFR ( Amer) Est GFR (Non-Af Amer) POC Glucose (mg/dL) 224 H 226 H Random Glucose Calcium Triglycerides Cholesterol LDL Cholesterol Direct HDL Cholesterol 11/16/16 11/16/16 11/16/16 06:08 06:08 06:08 Neutrophils % (Manual) Lymphocytes % (Manual) Monocytes % (Manual) Platelet Estimate Large Platelets Polychromasia Poikilocytosis (manual Anisocytosis (manual) Target Cells Tear Drop Cells Ovalocytes PT 11.5 INR 1.0 APTT 31 Puncture Site pCO2 pO2 HCO3 ABG pH ABG Total CO2 ABG O2 Saturation ABG Base Excess ABG Hemoglobin ABG Carboxyhemoglobin POC ABG HHb (Measured) ABG Methemoglobin Rg Test A-a O2 Difference Respiratory Index Hgb O2 Saturation Mechanical Rate FiO2 Tidal Volume PEEP Sodium 132 Potassium 2.7 L Chloride 96 L Carbon Dioxide 26 Anion Gap 13 BUN 14 Creatinine 1.8 H Est GFR ( Amer) 34 Est GFR (Non-Af Amer) 28 POC Glucose (mg/dL) Random Glucose 212 H Calcium 7.4 L Triglycerides 159 H D Cholesterol 138 LDL Cholesterol Direct 62 HDL Cholesterol 50 Fingerstick Blood Sugar Results: 226 Critical Care Progress Note - Nutrition Nutrition: Nutrition Category Date Time Status NPO Diet [DIET] Diets 11/15/16 Breakfast Active
[2016-11-16] MEDS: Saccharomyces Boulardi 250 mg Cap PO SCH ×2 (09:45→17:32)
--- NOTE | 2016-11-16 11:59 | RAD ---
HISTORY: respiratory failure COMPARISON: 11/15/2016 FINDINGS: LUNGS: No active pulmonary disease. PLEURA: No significant pleural effusion identified, no pneumothorax apparent. CARDIOVASCULAR: Tunneled central venous dialysis catheter. Endotracheal tube and nasogastric tube are unchanged. OSSEOUS STRUCTURES: No significant abnormalities. VISUALIZED UPPER ABDOMEN: Normal. OTHER FINDINGS: None. IMPRESSION: No active disease.
[2016-11-16] MEDS: Dorzolamide 2% Opht Sol 10ml OU SCH ×2 (12:24→17:33)
--- NOTE | 2016-11-16 15:21 | CP.PCM.PN ---
Subjective - Date & Time of Evaluation Date of Evaluation: 11/16/16 Time of Evaluation: 09:40 - Subjective Subjective: Medical Attending Note Follow-up: Acute Respiratory Failure Patient seen, examined and case discussed with ICU. Will attempt extubation tomorrow. Patient is awake, alert, on low sedation, intubated on PRVC. No family present. Unable to retrieve ROS seconday to clinical condition. Objective - Vital Signs/Intake and Output Vital Signs (last 24 hours): Temp Pulse Resp BP Pulse Ox 99.1 F 87 14 182/35 H 100 11/16/16 12:00 11/16/16 14:01 11/16/16 14:01 11/16/16 14:01 11/16/16 14:01 Intake and Output: 11/16/16 11/16/16 06:59 18:59 Intake Total 818.8 805.8 Output Total 10 0 Balance 808.8 805.8 - Medications Medications: Current Medications Albuterol/Ipratropium (Duoneb 3 Mg/0.5 Mg (3 Ml) Ud) 3 ml INH RQ8 PENDING SALE TO [facility] Last Admin: 11/16/16 11:29 Dose: Not Given Aspirin (Aspirin Chewable) 81 mg NG DAILY PENDING SALE TO [facility] Last Admin: 11/16/16 13:37 Dose: 81 mg Carvedilol (Coreg) 12.5 mg PO BID PENDING SALE TO [facility] Last Admin: 11/16/16 09:44 Dose: 12.5 mg Dorzolamide HCl (Trusopt) 0 ml OU BID PENDING SALE TO [facility] Last Admin: 11/16/16 12:24 Dose: 1 drop Gabapentin (Neurontin) 100 mg PO TID PENDING SALE TO [facility] Last Admin: 11/16/16 13:34 Dose: 100 mg Heparin Sodium (Porcine) (Heparin) 5,000 units SC Q12 PENDING SALE TO [facility] Last Admin: 11/16/16 09:45 Dose: 5,000 units Propofol (Diprivan) 1,000 mg in 100 mls @ 2.858 mls/hr IV .Q24H PRN; Protocol; 5 MCG/KG/MIN PRN Reason: TITRATE PER MD ORDER Last Admin: 11/16/16 13:46 Dose: 35 mcg/kg/min, 20.003 mls/hr Insulin Human Regular (Novolin R) 0 unit SC Q6H ELIZABETH PRN Reason: Protocol Last Admin: 11/16/16 12:25 Dose: 2 unit Methylprednisolone (Solu-Medrol) 40 mg IVP Q12 PENDING SALE TO [facility] Last Admin: 11/16/16 09:46 Dose: 40 mg Pantoprazole Sodium (Protonix Inj) 40 mg IVP DAILY PENDING SALE TO [facility] Last Admin: 11/16/16 09:45 Dose: 40 mg Rosuvastatin Calcium (Crestor) 10 mg PO HS PENDING SALE TO [facility] Saccharomyces Boulardii (Florastor) 250 mg PO BID PENDING SALE TO [facility] Last Admin: 11/16/16 09:45 Dose: 250 mg - Labs Labs: 11/15/16 06:17 11/16/16 06:08 PT 11.5 SECONDS (9.7-12.2) 11/16/16 06:08 INR 1.0 11/16/16 06:08 APTT 31 SECONDS (21-34) 11/16/16 06:08 - Constitutional Appears: Non-toxic, No Acute Distress - Head Exam Head Exam: NORMAL INSPECTION - Eye Exam Eye Exam: EOMI. absent: Scleral icterus - ENT Exam ENT Exam: Mucous Membranes Moist - Respiratory Exam Respiratory Exam: Clear to Ausculation Bilateral. absent: Rales, Rhonchi, Respiratory Distress Additional comments: intubated on vent - Cardiovascular Exam Cardiovascular Exam: REGULAR RHYTHM, +S1, +S2 - GI/Abdominal Exam GI & Abdominal Exam: Soft, Normal Bowel Sounds. absent: Distended, Firm, Guarding, Rigid, Tenderness - Extremities Exam Additional comments: bilateral AKA - Neurological Exam Neurological Exam: Alert, Awake - Psychiatric Exam Psychiatric exam: Normal Affect, Normal Mood - Skin Skin Exam: Dry, Normal Color, Warm Assessment and Plan (1) Acute respiratory failure Status: Acute (2) COPD (chronic obstructive pulmonary disease) Status: Chronic (3) Hyperlipidemia Status: Chronic (4) Congestive heart failure Status: Chronic (5) Diabetes mellitus Status: Chronic (6) ESRD (end stage renal disease) on dialysis Status: Chronic (7) HTN (hypertension) Status: Chronic (8) Hypokalemia Status: Acute (9) Prophylactic measure Status: Acute - Assessment and Plan (Free Text) Assessment: Assessment and Plan (1) Acute respiratory failure Assessment & Plan: Intubated in the ED on admission PH: 7.04, CO2: 124 on admission history of COPD Pulmonary consult (Dr. Quach)--f/u recommendations Duonebs 3ml INH RQ8 HR Solumedrol 40mg IVP Q 8 hours CPAP trial Chest xray (11/15/16): possible small left pleural effusion. Line and tubes are unchanged Chest Xray 11/16/16): No active disease Sputum culture pending Status: Acute (2) COPD (chronic obstructive pulmonary disease) Assessment & Plan: Pulmonary Consult (Dr. Quach)-->on board help appreciated Solumdedrol 40mg IV Q 12hours Duonebs 3ml INH RQ8HR Status: Chronic (3) Hyperlipidemia Assessment & Plan: Lipid panel: TG mildly elevated Crestor 10mg POqHS Status: Chronic (4) Congestive heart failure Assessment & Plan: Echocardiogram (10/02/16): left ventricle systolic function is normal, EF: 65-70% , no aortic regurgitation is present, mitral regurgitation is mild, mild trciuspid regurgitation, mild pulmonary hypertension, mild pulmonic valvular regurgitation patient recently started on dialysis about 2 weeks ago Crestor 10mg POqHS Aspirin 81mg PO daily Coreg 12.5mg PO Q12 Status: Chronic (5) Diabetes mellitus Assessment & Plan: Uncontrolled Accuchecks Q6H insulin sliding scale subq6H Pending [id number] Status: Chronic (6) ESRD (end stage renal disease) on dialysis Assessment & Plan: Nephrology consult, Dr. Saeed, help appreciated Patient recently started on dialysis about 2 weeks ago at [place] per review of EMR Status: Chronic (7) HTN (hypertension) Assessment & Plan: Monitor blood pressure Status: Chronic (8) Prophylactic measure Assessment & Plan: heparin 5000 units subq 12 hours Protonix 40mg IV q daily for GI ppx Pending blood and urine cultures Status: Acute (9) Diarrhea Assessment & Plan: Ordered for C. dif, stool ova and parasite, and culture d/c protonx; started on pepcid 20mg IVq daily Blood cultures (11/14/16): no growth X 24 hours X2 Urine culture: no growth Florastor 250mg PO bid Status: Acute (10) Hypokalemia Assessment & Plan: replete potassium Status: Acute
[2016-11-16] MEDS ORDERED: Potassium Chloride 20 mEq/15 ml LIQ UD PO ONE (15:34)
[2016-11-17] MEDS: (Novolin R) Insulin Human Regular 100 units/ml vial SC SCH ×4 (00:08→17:47)
[2016-11-17] MEDS: Albuterol-Ipratrop 3 mg / 0.5 (3 ml) UD INH SCH ×4 (00:22→23:44)
[2016-11-17] MEDS: Propofol 10 mg/ml 1,000 MG/100 ML VIAL IV PRN ×3 (04:00→17:48)
[2016-11-17 05:33] LABS: ARTERIAL BLOOD GAS HCO3 29.2 mmol/L (21-28); ARTERIAL BLOOD GAS HEMOGLOBIN 14.4 g/dL (11.7-17.4); ARTERIAL BLOOD GAS PCO2 45 mm/Hg (35-45); ARTERIAL BLOOD GAS PH 7.44 (7.35-7.45); ARTERIAL BLOOD GAS PO2 113 mm/Hg (80-100)
[2016-11-17 06:21] LABS: HEMOGLOBIN 10.9 g/dL (11.0-16.0); MEAN CELL VOLUME 89.1 fL (81.0-99.0); MEAN CORPUSCULAR HEMOGLOBIN 28.6 pg (27.0-31.0); MEAN CORPUSCULAR HGB CONC 32.1 g/dL (33.0-37.0); MEAN PLATELET VOLUME 11.9 fL (7.2-11.7); RBC 3.8 Mil/uL (3.80-5.20); RED CELL DISTRIBUTION WIDTH 17.2 % (11.5-14.5); WHITE BLOOD COUNT 5.6 K/uL (4.8-10.8)
[2016-11-17 06:29] LABS: ALBUMIN 2.4 g/dL (3.5-5.0)
[2016-11-17 06:32] LABS: ALB/GLOB RATIO 0.8 (1.0-2.1); CALCIUM 7.5 mg/dl (8.6-10.4); MAGNESIUM 1.9 mg/dL (1.6-2.3)
--- NOTE | 2016-11-17 07:26 | CP.CCUPN ---
CCU Subjective - Physician Review Subjective (Free Text): 11/17/16 13:42 Patient seen and examined at bedside. No acute events overnight. Low grade temp 100F overnight Patient having some diarrhea- C Diff negative Patient tolerating CPAP+PS (5, 15, 40%) and tube feeds @ 35cc/hr Alert and responsive on low sedation ROS unobtainable CCU Objective - Vital Signs / Intake & Output Vital Signs (Last 4 hours): Vital Signs Temp Pulse Resp BP Pulse Ox 11/17/16 07:01 174/43 H 11/17/16 07:00 82 14 100 11/17/16 06:01 73 12 172/38 H 100 11/17/16 05:01 171/43 H 11/17/16 05:00 78 14 100 11/17/16 04:58 86 15 166/44 H 11/17/16 04:01 182/47 H 11/17/16 04:00 99.6 F 75 14 100 Intake and Output (Last 8hrs): Intake & Output 11/16/16 11/17/16 11/17/16 22:59 06:59 14:59 Intake Total 629.8 756 57 Output Total 140 100 115 Balance 489.8 656 -58 Weight 194 lb 5 oz Intake: IV 140 300 Intake, IV Amount 159.8 176 22 Left Hand 159.8 176 22 Tube Feeding 280 280 35 Other 50 Output: Urine 140 100 15 2-way Urethral 140 100 15 Stool 100 - Physical Exam Head: Positive for: Atraumatic, Normocephalic Pupils: Positive for: PERRL Extroacular Muscles: Positive for: EOMI Conjunctiva: Positive for: Normal. Negative for: Injected, Icteric Mouth: Positive for: Moist Mucous Membranes, Other (ET tube in place) Respiratory/Chest: Negative for: Respiratory Distress, Accessory Muscle Use, Rales, Retracting, Rhonchi Cardiovascular: Positive for: Regular Rate and Rhythm, Normal S1, S2 Abdomen: Positive for: Normal Bowel Sounds. Negative for: Tenderness Lower Extremity: Positive for: Other (b/l AKA). Negative for: Normal Inspection Skin: Positive for: Warm, Dry, Normal Color Psychiatric: Positive for: Alert - Medications Active Medications: Active Medications Generic Name Dose Route Start Last Admin Trade Name Freq PRN Reason Stop Dose Admin Albuterol/Ipratropium 3 ml 11/16/16 08:45 11/17/16 00:22 Duoneb 3 Mg/0.5 Mg (3 Ml) Ud INH 3 ml RQ8 [facility] Administration Aspirin 81 mg 11/16/16 10:15 11/16/16 13:37 Aspirin Chewable NG 81 mg DAILY [facility] Administration Carvedilol 12.5 mg 11/16/16 22:00 11/16/16 21:49 Coreg PO 12.5 mg Q12 [facility] Administration Dorzolamide HCl 0 ml 11/16/16 10:00 11/16/16 17:33 Trusopt OU 1 drop BID [facility] Administration Famotidine 20 mg 11/17/16 10:00 Pepcid IVP DAILY [facility] Gabapentin 100 mg 11/16/16 10:00 11/16/16 17:33 Neurontin PO 100 mg TID [facility] Administration Heparin Sodium (Porcine) 5,000 units 11/15/16 10:00 11/16/16 21:48 Heparin SC 5,000 units Q12 [facility] Administration Propofol 1,000 mg in 100 mls @ 2.858 mls/hr 11/14/16 23:47 11/17/16 06:31 Diprivan IV 40 mcg/kg/min .Q24H PRN 22.861 mls/hr TITRATE PER MD ORDER Administration Protocol 5 MCG/KG/MIN Insulin Human Regular 0 unit 11/15/16 06:00 11/17/16 05:13 Novolin R SC 3 unit Q6H [facility] Administration Protocol Methylprednisolone 40 mg 11/16/16 10:00 11/16/16 21:49 Solu-Medrol IVP 40 mg Q12 [facility] Administration Rosuvastatin Calcium 10 mg 11/16/16 22:00 11/16/16 22:04 Crestor PO 10 mg HS [facility] Administration Saccharomyces Boulardii 250 mg 11/16/16 10:00 11/16/16 17:32 Florastor PO 250 mg BID [facility] Administration - Patient Studies Lab Studies: Microbiology Studies 11/16/16 Unknown Ova and Parasite Concentrate Exam - Final Stool 11/16/16 08:28 Gram Stain - Final Trachasp 11/15/16 Unknown MRSA Culture (Admit) - Final Naris MRSA NOT DETECTED Lab Studies 11/17/16 11/17/16 11/17/16 Range/Units 06:09 06:09 05:30 WBC 5.6 (4.8-10.8) K/uL RBC 3.80 (3.80-5.20) Mil/uL Hgb 10.9 L D (11.0-16.0) g/dL Hct 33.9 L (34.0-47.0) % MCV 89.1 D (81.0-99.0) fL MCH 28.6 (27.0-31.0) pg MCHC 32.1 L (33.0-37.0) g/dL RDW 17.2 H (11.5-14.5) % Plt Count 124 L D (130-400) K/uL MPV 11.9 H (7.2-11.7) fL Puncture Site Rb pCO2 45 (35-45) mm/Hg pO2 113 H (80-100) mm/Hg HCO3 29.2 H (21-28) mmol/L ABG pH 7.44 (7.35-7.45) ABG Total CO2 32.0 H (22-28) mmol/L ABG O2 Saturation 99.0 H (95-98) % ABG Base Excess 5.5 H (-2.0-3.0) mmol/L ABG Hemoglobin 14.4 (11.7-17.4) g/dL ABG Carboxyhemoglobin 1.5 (0.5-1.5) % POC ABG HHb (Measured) 1.0 (0.0-5.0) % ABG Methemoglobin 1.4 (0.0-3.0) % Rg Test Na A-a O2 Difference 116.0 mm/Hg Respiratory Index 1.0 Hgb O2 Saturation 96.1 (95.0-98.0) % Mechanical Rate 14 FiO2 40.0 % Tidal Volume 450 PEEP 5 Sodium 132 (132-148) mmol/L Potassium 2.6 L (3.6-5.2) mmol/L Chloride 96 L (98-107) mmol/L Carbon Dioxide 27 (22-30) mmol/L Anion Gap 12 (10-20) BUN 24 H (7-17) mg/dL Creatinine 2.3 H (0.7-1.2) MG/DL Est GFR ( Amer) 26 Est GFR (Non-Af Amer) 21 POC Glucose (mg/dL) (65-110) mg/dL Random Glucose 228 H (65-105) mg/dL Calcium 7.5 L (8.6-10.4) mg/dl Phosphorus 2.7 (2.5-4.5) mg/dL Magnesium 1.9 (1.6-2.3) mg/dL Total Bilirubin 0.4 (0.2-1.3) mg/dL AST 16 (14-36) U/L ALT 20 (9-52) U/L Alkaline Phosphatase 84 (38-126) U/L Total Protein 5.6 L (6.3-8.3) g/dL Albumin 2.4 L (3.5-5.0) g/dL Globulin 3.1 (2.2-3.9) gm/dL Albumin/Globulin Ratio 0.8 L (1.0-2.1) C. difficile Ag & Toxin (NEGATIVE) 11/17/16 11/16/16 11/16/16 Range/Units 05:08 Unknown 23:34 WBC (4.8-10.8) K/uL RBC (3.80-5.20) Mil/uL Hgb (11.0-16.0) g/dL Hct (34.0-47.0) % MCV (81.0-99.0) fL MCH (27.0-31.0) pg MCHC (33.0-37.0) g/dL RDW (11.5-14.5) % Plt Count (130-400) K/uL MPV (7.2-11.7) fL Puncture Site pCO2 (35-45) mm/Hg pO2 (80-100) mm/Hg HCO3 (21-28) mmol/L ABG pH (7.35-7.45) ABG Total CO2 (22-28) mmol/L ABG O2 Saturation (95-98) % ABG Base Excess (-2.0-3.0) mmol/L ABG Hemoglobin (11.7-17.4) g/dL ABG Carboxyhemoglobin (0.5-1.5) % POC ABG HHb (Measured) (0.0-5.0) % ABG Methemoglobin (0.0-3.0) % Rg Test A-a O2 Difference mm/Hg Respiratory Index Hgb O2 Saturation (95.0-98.0) % Mechanical Rate FiO2 % Tidal Volume PEEP Sodium (132-148) mmol/L Potassium (3.6-5.2) mmol/L Chloride (98-107) mmol/L Carbon Dioxide (22-30) mmol/L Anion Gap (10-20) BUN (7-17) mg/dL Creatinine (0.7-1.2) MG/DL Est GFR ( Amer) Est GFR (Non-Af Amer) POC Glucose (mg/dL) 250 H 331 H (65-110) mg/dL Random Glucose (65-105) mg/dL Calcium (8.6-10.4) mg/dl Phosphorus (2.5-4.5) mg/dL Magnesium (1.6-2.3) mg/dL Total Bilirubin (0.2-1.3) mg/dL AST (14-36) U/L ALT (9-52) U/L Alkaline Phosphatase (38-126) U/L Total Protein (6.3-8.3) g/dL Albumin (3.5-5.0) g/dL Globulin (2.2-3.9) gm/dL Albumin/Globulin Ratio (1.0-2.1) C. difficile Ag & Toxin Negative (NEGATIVE) 11/16/16 11/16/16 Range/Units 17:26 12:17 WBC (4.8-10.8) K/uL RBC (3.80-5.20) Mil/uL Hgb (11.0-16.0) g/dL Hct (34.0-47.0) % MCV (81.0-99.0) fL MCH (27.0-31.0) pg MCHC (33.0-37.0) g/dL RDW (11.5-14.5) % Plt Count (130-400) K/uL MPV (7.2-11.7) fL Puncture Site pCO2 (35-45) mm/Hg pO2 (80-100) mm/Hg HCO3 (21-28) mmol/L ABG pH (7.35-7.45) ABG Total CO2 (22-28) mmol/L ABG O2 Saturation (95-98) % ABG Base Excess (-2.0-3.0) mmol/L ABG Hemoglobin (11.7-17.4) g/dL ABG Carboxyhemoglobin (0.5-1.5) % POC ABG HHb (Measured) (0.0-5.0) % ABG Methemoglobin (0.0-3.0) % Rg Test A-a O2 Difference mm/Hg Respiratory Index Hgb O2 Saturation (95.0-98.0) % Mechanical Rate FiO2 % Tidal Volume PEEP Sodium (132-148) mmol/L Potassium (3.6-5.2) mmol/L Chloride (98-107) mmol/L Carbon Dioxide (22-30) mmol/L Anion Gap (10-20) BUN (7-17) mg/dL Creatinine (0.7-1.2) MG/DL Est GFR ( Amer) Est GFR (Non-Af Amer) POC Glucose (mg/dL) 325 H 237 H (65-110) mg/dL Random Glucose (65-105) mg/dL Calcium (8.6-10.4) mg/dl Phosphorus (2.5-4.5) mg/dL Magnesium (1.6-2.3) mg/dL Total Bilirubin (0.2-1.3) mg/dL AST (14-36) U/L ALT (9-52) U/L Alkaline Phosphatase (38-126) U/L Total Protein (6.3-8.3) g/dL Albumin (3.5-5.0) g/dL Globulin (2.2-3.9) gm/dL Albumin/Globulin Ratio (1.0-2.1) C. difficile Ag & Toxin (NEGATIVE) Laboratory Results - last 24 hr 11/16/16 11/16/16 11/16/16 12:17 17:26 23:34 WBC RBC Hgb Hct MCV MCH MCHC RDW Plt Count MPV Puncture Site pCO2 pO2 HCO3 ABG pH ABG Total CO2 ABG O2 Saturation ABG Base Excess ABG Hemoglobin ABG Carboxyhemoglobin POC ABG HHb (Measured) ABG Methemoglobin Rg Test A-a O2 Difference Respiratory Index Hgb O2 Saturation Mechanical Rate FiO2 Tidal Volume PEEP Sodium Potassium Chloride Carbon Dioxide Anion Gap BUN Creatinine Est GFR ( Amer) Est GFR (Non-Af Amer) POC Glucose (mg/dL) 237 H 325 H 331 H Random Glucose Calcium Phosphorus Magnesium Total Bilirubin AST ALT Alkaline Phosphatase Total Protein Albumin Globulin Albumin/Globulin Ratio C. difficile Ag & Toxin 11/16/16 11/17/16 11/17/16 Unknown 05:08 05:30 WBC RBC Hgb Hct MCV MCH MCHC RDW Plt Count MPV Puncture Site Rb pCO2 45 pO2 113 H HCO3 29.2 H ABG pH 7.44 ABG Total CO2 32.0 H ABG O2 Saturation 99.0 H ABG Base Excess 5.5 H ABG Hemoglobin 14.4 ABG Carboxyhemoglobin 1.5 POC ABG HHb (Measured) 1.0 ABG Methemoglobin 1.4 Rg Test Na A-a O2 Difference 116.0 Respiratory Index 1.0 Hgb O2 Saturation 96.1 Mechanical Rate 14 FiO2 40.0 Tidal Volume 450 PEEP 5 Sodium Potassium Chloride Carbon Dioxide Anion Gap BUN Creatinine Est GFR ( Amer) Est GFR (Non-Af Amer) POC Glucose (mg/dL) 250 H Random Glucose Calcium Phosphorus Magnesium Total Bilirubin AST ALT Alkaline Phosphatase Total Protein Albumin Globulin Albumin/Globulin Ratio C. difficile Ag & Toxin Negative 11/17/16 11/17/16 06:09 06:09 WBC 5.6 RBC 3.80 Hgb 10.9 L D Hct 33.9 L MCV 89.1 D MCH 28.6 MCHC 32.1 L RDW 17.2 H Plt Count 124 L D MPV 11.9 H Puncture Site pCO2 pO2 HCO3 ABG pH ABG Total CO2 ABG O2 Saturation ABG Base Excess ABG Hemoglobin ABG Carboxyhemoglobin POC ABG HHb (Measured) ABG Methemoglobin Rg Test A-a O2 Difference Respiratory Index Hgb O2 Saturation Mechanical Rate FiO2 Tidal Volume PEEP Sodium 132 Potassium 2.6 L Chloride 96 L Carbon Dioxide 27 Anion Gap 12 BUN 24 H Creatinine 2.3 H Est GFR ( Amer) 26 Est GFR (Non-Af Amer) 21 POC Glucose (mg/dL) Random Glucose 228 H Calcium 7.5 L Phosphorus 2.7 Magnesium 1.9 Total Bilirubin 0.4 AST 16 ALT 20 Alkaline Phosphatase 84 Total Protein 5.6 L Albumin 2.4 L Globulin 3.1 Albumin/Globulin Ratio 0.8 L C. difficile Ag & Toxin Fingerstick Blood Sugar Results: 331 Review of Systems - Review of Systems Systems not reviewed;Unavailable: Intubated Assessment/Plan - Assessment and Plan (Free Text) Assessment: 61 F PMHx DMII, HTN, CKD, COPD brought in from alf for AMS and vomiting Plan: Neuro -Alert and responsive on low sedation -Diprivan gtt -CT head: no change from 06/26/16; small vessel ischemic change in deep white matter; 3mm lacunar infarct in R basal ganglia; no change; b/l mastoid air cell opacification -no acute issues HEENT -Hx of glaucoma -Dorzolamide bid Cardiovascular -Hx CHF -Echo (10/02/16): left ventricle systolic function is normal, EF: 65-70%, no aortic regurgitation is present, mitral regurgitation is mild, mild trciuspid regurgitation, mild pulmonary hypertension, mild pulmonic valvular regurgitation -Lipid panel WNL -ASA 81mg ng daily -Crestor 10mg po hs -Coreg 12.5mg po q12 Respiratory -CXR 11/17: prominent bibasilar airspace opacities w/ b/l pleural effusions. Cardiomegaly; Degenerative changes in spine and shoulders -Trach asp: gram negative rods -Duoneb 3ml inh q8 -Solumedrol 40mg ivp q12 -Cefepime 1gm ivpb q24 -Pulm Dr Quach consulted GI -some diarrhea -Florastor 250mg po bid -C Diff negative -negative ova and parasite Renal -ESRD on HD TTS -Nephrology Dr Saeed ID -Trach asp: gram negative rods -Blood culture negative -negative MRSA in nares -Urine culture negative -cefepime 1gm ivpb q24 -ID Dr Anne following Endo -HgbA1c 5 -Accucheck q6H -RISS q6 -Neurontin 100mg po tid Heme -no acute issues -H&H stable MSK -b/l AKA -no acute issues DVT ppx: Heparin 5000u sc q12 GI ppx: Pepcid 20mg ivp daily Code status: full code Case discussed with Dr Jie Seay PGY2
--- NOTE | 2016-11-17 08:32 | RAD ---
Chest x-ray single frontal view History: Intubated. Comparison: 11/16/2016 Findings: Lines and tubes in stable position. Moderate venous congestion. Left basilar airspace opacity with small left pleural effusion. Cardiomegaly. Degenerative changes in the spine and shoulders. Impression: Lines and tubes in stable position. Moderate venous congestion. Left basilar airspace opacity with small left pleural effusion. Cardiomegaly.
[2016-11-17] MEDS: Saccharomyces Boulardi 250 mg Cap PO SCH ×2 (09:25→17:46)
[2016-11-17] MEDS: MethylPREDNISolone 40 mg Vial IVP SCH ×2 (09:26→22:00)
[2016-11-17] MEDS: Dorzolamide 2% Opht Sol 10ml OU SCH ×2 (09:26→19:39)
[2016-11-17] MEDS ORDERED: Potassium Chloride 20 mEq/15 ml LIQ UD PO ONE (09:51)
--- NOTE | 2016-11-17 10:12 | CP.PCM.PN ---
Subjective - Date & Time of Evaluation Date of Evaluation: 11/17/16 Time of Evaluation: 10:11 - Subjective Subjective: pt seen and examined, follow up consult is dictated #[id number] for hd in am supplement k+ mg 1 gm ivpb x1 Objective - Vital Signs/Intake and Output Vital Signs (last 24 hours): Temp Pulse Resp BP Pulse Ox 98.8 F 73 14 153/35 H 99 11/17/16 08:00 11/17/16 09:01 11/17/16 09:01 11/17/16 09:25 11/17/16 09:01 Intake and Output: 11/17/16 11/17/16 06:59 18:59 Intake Total 1068.6 237.5 Output Total 240 145 Balance 828.6 92.5 - Medications Medications: Current Medications Albuterol/Ipratropium (Duoneb 3 Mg/0.5 Mg (3 Ml) Ud) 3 ml INH RQ8 [facility] Last Admin: 11/17/16 08:38 Dose: 3 ml Aspirin (Aspirin Chewable) 81 mg NG DAILY [facility] Last Admin: 11/17/16 09:25 Dose: 81 mg Carvedilol (Coreg) 12.5 mg PO Q12 [facility] Last Admin: 11/17/16 09:25 Dose: 12.5 mg Dorzolamide HCl (Trusopt) 0 ml OU BID [facility] Last Admin: 11/17/16 09:26 Dose: 1 drop Famotidine (Pepcid) 20 mg IVP DAILY [facility] Last Admin: 11/17/16 09:26 Dose: 20 mg Gabapentin (Neurontin) 100 mg PO TID [facility] Last Admin: 11/17/16 09:26 Dose: 100 mg Heparin Sodium (Porcine) (Heparin) 5,000 units SC Q12 [facility] Last Admin: 11/17/16 09:25 Dose: 5,000 units Propofol (Diprivan) 1,000 mg in 100 mls @ 2.858 mls/hr IV .Q24H PRN; Protocol; 5 MCG/KG/MIN PRN Reason: TITRATE PER MD ORDER Last Titration: 11/17/16 09:39 Dose: 30 mcg/kg/min, 17.146 mls/hr Potassium Chloride (Potassium Chloride 10 Meq/100 Ml) 10 meq in 100 mls @ 100 mls/hr IVPB Q1 [facility] Stop: 11/17/16 12:59 Ceftriaxone Sodium 1 gm/ (Sodium Chloride) 100 mls @ 100 mls/hr IVPB DAILY [facility] Insulin Human Regular (Novolin R) 0 unit SC Q6H [facility] PRN Reason: Protocol Last Admin: 11/17/16 05:13 Dose: 3 unit Methylprednisolone (Solu-Medrol) 40 mg IVP Q12 [facility] Last Admin: 11/17/16 09:26 Dose: 40 mg Rosuvastatin Calcium (Crestor) 10 mg PO HS [facility] Last Admin: 11/16/16 22:04 Dose: 10 mg Saccharomyces Boulardii (Florastor) 250 mg PO BID [facility] Last Admin: 11/17/16 09:25 Dose: 250 mg - Labs Labs: 11/17/16 06:09 11/17/16 06:09 PT 11.5 SECONDS (9.7-12.2) 11/16/16 06:08 INR 1.0 11/16/16 06:08 APTT 31 SECONDS (21-34) 11/16/16 06:08
--- NOTE | 2016-11-17 10:23 | CP.PCM.CON ---
History of Present Illness - History of Present Illness History of Present Illness: 61 years old female residing at [facility] was brought to the ED because of Change in Mental Status and vomiting. In the ED she was unresponsive. Her ABG indicated a PH of 7.04; PCO2 of 124; PO2 of 66 and HCO2 of 23. The patient was Intubated in the ED and placed on the mechanical ventilator. ID consulted for gram neg rods in sputum ? allergy Primaxin PMH: COPD with Emphysemia; DM II; HTN; CKD on Dialysis; Anxiety depressive disorder; GI bleed; glaucoma PSH: Bilateral AKA; Right IJ Permacath for dialysis SH: No Alcohol; No illegal drug use; No smoking; Live at [facility] FH: Unknown family history Allergies: Primaxin; Oxycodone Review of Systems - Review of Systems Systems not reviewed;Unavailable: Intubated - Constitutional Constitutional: As Per HPI - EENT Eyes: absent: As Per HPI, Blind Spots, Blurred Vision, Change in Vision, Decreased Night Vision, Diplopia, Discharge, Dry Eye, Exophthalmos, Floaters, Irritation, Itchy Eyes, Loss of Peripheral Vision, Pain, Photophobia, Requires Corrective Lenses, Sees Flashes, Spots in Vision, Tunnel Vision, Other Visual Disturbances, Loss of Vision, Other Ears: absent: As Per HPI, Decreased Hearing, Ear Discharge, Ear Pain, Tinnitus, Abnormal Hearing, Disequilibrium, Dizziness, Other Nose/Mouth/Throat: absent: As Per HPI, Epistaxis, Nasal Congestion, Nasal Discharge, Nasal Obstruction, Nasal Trauma, Nose Pain, Post Nasal Drip, Sinus Pain, Sinus Pressure, Bleeding Gums, Change in Voice, Dental Pain, Dry Mouth, Dysphagia, Halitosis, Hoarsness, Lip Swelling, Mouth Lesions, Mouth Pain, Odynophagia, Sore Throat, Throat Swelling, Tongue Swelling, Facial Pain, Neck Pain, Neck Mass, Other - Breasts Breasts: absent: As Per HPI, Change in Shape, Mass, Pain, Nipple Discharge, Nipple Inversion, Skin Changes, Swelling, Other - Cardiovascular Cardiovascular: absent: As Per HPI, Acrocyanosis, Chest Pain, Chest Pain at Rest , Chest Pain with Activity, Claudication, Diaphoresis, Dyspnea, Dyspnea on Exertion, Edema, Irregular Heart Rhythm, Pain Radiating to Arm/Neck/Jaw, Leg Edema, Leg Ulcers, Lightheadedness, Orthopnea, Palpitations, Paroxysmal Nocturnal Dyspnea, Pedal Edema, Radiating Pain, Rapid Heart Rate, Slow Heart Rate, Syncope, Other - Respiratory Respiratory: As Per HPI - Gastrointestinal Gastrointestinal: absent: As Per HPI, Abdominal Pain, Belching, Bloating, Change in Bowel Habits, Change in Stool Character, Coffee Ground Emesis, Constipation, Cramping, Diarrhea, Dyspepsia, Dysphagia, Early Satiety, Excessive Flatus, Fecal Incontinence, Heartburn, Hematemesis, Hematochezia, Loose Stools, Melena, Nausea, Odynophagia, Temesmus, Vomiting, Other - Genitourinary Genitourinary: absent: As Per HPI, Change in Urinary Stream, Difficulty Urinating, Dysuria, Flank Pain, Hematuria, Pyuria, Nocturia, Urinary Incontinence, Urinary Frequency, Urinary Hesitance, Urinary Urgency, Voiding Freq/Small Amts, Freq UTI, Hx Renal/Bladder Calculi, Hx /Renal Surgery, Bladder Distension, Other - Reproductive: Female Reproductive:Female: absent: As Per HPI, Amenorrhea, Amenorrhea/ Control, Currently Menstual, Cycle <21 Days, Cycle >35 Days, Cycle Variable, Menses 1-7 Days, Menses >/= 8 Days, Menses Variable, Cycle > 4 Weeks Between, No Menses for 6 Months, Heavy Menses, Light Menses, Normal Menses, Spotting Between Cycles , S/P Hysterectomy, Menopausal, Post Menopausal, Premenarche, Abnormal Vaginal Bleeding, Dysmenorrhea, Dyspareunia, Genital Lesions, Genital Pruritis, Pelvic Pain, Prolapse Symptoms, Sexual Dysfunction, Vaginal Discharge, Vaginal Dryness , Vaginal Odor, Vaginal Pruritis, Other - Menstruation Menstruation: absent: As Per HPI, Amenorrhea, Amenorrhea/ Control, Currently Menstual, Cycle <21 Days, Cycle >35 Days, Cycle Variable, Menses 1-7 Days, Menses >/= 8 Days, Menses Variable, Cycle > 4 Weeks Between, No Menses for 6 Months, Heavy Menses, Light Menses, Normal Menses, Spotting Between Cycles , S/P Hysterectomy, Menopausal, Post Menopausal, Premenarche, Abnormal Vaginal Bleeding, Dysmenorrhea, Other - Musculoskeletal Musculoskeletal: absent: As Per HPI, Abnormal Gait, Arthralgias, Atrophy, Back Pain, Deformity, Joint Swelling, Limited Range of Motion, Loss of Height, Muscle Cramps, Muscle Weakness, Myalgias, Neck Pain, Numbness, Radiating Pain into Limb, Stiffness, Tingling, Other - Integumentary Integumentary: absent: As Per HPI, Acne, Alopecia, Bleeding Lesions, Change in Hair, Change in Nails, Change in Pigmentation, Changing Lesions, Dry Skin, Erythema, Furuncle, Hirsutism, Lesions, New Lesions, Non-Healing Lesions, Photosensitivity, Pruritus, Rash, Skin Pain, Skin Ulcer, Sores, Striae, Swelling , Unusual Bruising, Wounds, Jaundice, Other - Neurological Neurological: absent: As Per HPI, Abnormal Gait, Abnormal Hearing, Abnormal Movements, Abnormal Speech, Behavioral Changes, Burning Sensations, Confusion, Convulsions, Disequilibrium, Dizziness, Numbness, Focal Weakness, Frequent Falls , Headaches, Lack of Coordination, Loss of Vision, Memory Loss, Paresthesias, Radicular Pain, Restless Legs, Sensory Deficit, Syncope, Tingling, Tremor, Vertigo, Weakness, Other Visual Disturbances, Other - Psychiatric Psychiatric: absent: As Per HPI, Abnormal Sleep Pattern, Anhedonia, Anxiety, Auditory Hallucinations, Behavioral Changes, Change in Appetite, Change in Libido, Confusion, Depression, Difficulty Concentrating, Hallucinations, Homicidal Ideation, Hopelessness, Irritability, Memory Loss, Mood Swings, Panic Attacks, Paranoia, Suicidal Ideation, Visual Hallucinations, Tactile Hallucinations, Other - Endocrine Endocrine: absent: As Per HPI, Change in Body Appearance, Change in Libido, Cold Intolorance, Deepening of Voice, Excessive Sweating, Fatigue, Flushing, Heat Intolorance, Increase in Ring/Shoe/Hat Size, Palpitations, Polydipsia, Polyphagia, Polyuria, Other - Hematologic/Lymphatic Hematologic: absent: As Per HPI, Easy Bleeding, Easy Bruising, Lymphadenopathy, Other Past Patient History - Infectious Disease Hx of Infectious Diseases: None - Past Medical History & Family History Past Medical History?: Yes - Past Social History Smoking Status: Never Smoked - CARDIAC Hx Hypercholesterolemia: Yes Hx Hypertension: Yes Hx Peripheral Edema: Yes - PULMONARY Hx Asthma: Yes Hx Chronic Obstructive Pulmonary Disease (COPD): Yes Hx Emphysema: Yes Hx Pneumonia: Yes - HEENT Hx HEENT Problems: Yes (WEARS RX GLASSES) Hx Glaucoma: Yes - RENAL Hx Chronic Kidney Disease: Yes - HEMATOLOGICAL/ONCOLOGICAL Hx Anemia: Yes - INTEGUMENTARY Hx Dermatological Problems: Yes Other/Comment: notes from last pt visit/previous triage:redness under both breasts and b/l abd folds, healed skin to buttocks and sacrum - GASTROINTESTINAL Hx Gastrointestinal Disorders: Yes Other/Comment: obesity - GENITOURINARY/GYNECOLOGICAL Hx Genitourinary Disorders: Yes Hx Incontinence: Yes Hx Urinary Tract Infection: Yes - PSYCHIATRIC Hx Anxiety: Yes Hx Depression: Yes Hx Substance Use: No - ANESTHESIA Hx Anesthesia: Yes Hx Anesthesia Reactions: No Hx Malignant Hyperthermia: No Meds Allergies/Adverse Reactions: Allergies Allergy/AdvReac Type Severity Reaction Status Date / Time cilastatin sodium Allergy RASH Verified 11/14/16 18:46 [From Primaxin] imipenem [From Primaxin] Allergy RASH Verified 11/14/16 18:46 oxycodone Allergy RASH Verified 11/14/16 18:46 - Medications Medications: Current Medications Albuterol/Ipratropium (Duoneb 3 Mg/0.5 Mg (3 Ml) Ud) 3 ml INH RQ8 [facility] Last Admin: 11/17/16 08:38 Dose: 3 ml Aspirin (Aspirin Chewable) 81 mg NG DAILY [facility] Last Admin: 11/17/16 09:25 Dose: 81 mg Carvedilol (Coreg) 12.5 mg PO Q12 [facility] Last Admin: 11/17/16 09:25 Dose: 12.5 mg Dorzolamide HCl (Trusopt) 0 ml OU BID [facility] Last Admin: 11/17/16 09:26 Dose: 1 drop Famotidine (Pepcid) 20 mg IVP DAILY [facility] Last Admin: 11/17/16 09:26 Dose: 20 mg Gabapentin (Neurontin) 100 mg PO TID [facility] Last Admin: 11/17/16 09:26 Dose: 100 mg Heparin Sodium (Porcine) (Heparin) 5,000 units SC Q12 [facility] Last Admin: 11/17/16 09:25 Dose: 5,000 units Propofol (Diprivan) 1,000 mg in 100 mls @ 2.858 mls/hr IV .Q24H PRN; Protocol; 5 MCG/KG/MIN PRN Reason: TITRATE PER MD ORDER Last Titration: 11/17/16 09:39 Dose: 30 mcg/kg/min, 17.146 mls/hr Potassium Chloride (Potassium Chloride 10 Meq/100 Ml) 10 meq in 100 mls @ 100 mls/hr IVPB Q1 [facility] Stop: 11/17/16 12:59 Last Admin: 11/17/16 10:15 Dose: 100 mls/hr Ceftriaxone Sodium 1 gm/ (Sodium Chloride) 100 mls @ 100 mls/hr IVPB DAILY [facility] Insulin Human Regular (Novolin R) 0 unit SC Q6H [facility] PRN Reason: Protocol Last Admin: 11/17/16 05:13 Dose: 3 unit Methylprednisolone (Solu-Medrol) 40 mg IVP Q12 [facility] Last Admin: 11/17/16 09:26 Dose: 40 mg Rosuvastatin Calcium (Crestor) 10 mg PO HS [facility] Last Admin: 11/16/16 22:04 Dose: 10 mg Saccharomyces Boulardii (Florastor) 250 mg PO BID [facility] Last Admin: 11/17/16 09:25 Dose: 250 mg Physical Exam - Constitutional Appears: Non-toxic, Confused, Chronically Ill - Head Exam Head Exam: ATRAUMATIC, NORMAL INSPECTION, NORMOCEPHALIC - Eye Exam Eye Exam: PERRL. absent: Scleral icterus Pupil Exam: PERRL - ENT Exam ENT Exam: Mucous Membranes Dry, Normal External Ear Exam, Normal Oropharynx - Neck Exam Neck exam: Negative for: Lymphadenopathy - Respiratory Exam Respiratory Exam: Decreased Breath Sounds, Rhonchi - Cardiovascular Exam Cardiovascular Exam: REGULAR RHYTHM, +S1, +S2 - GI/Abdominal Exam GI & Abdominal Exam: Diminished Bowel Sounds, Distended, Soft. absent: Rebound , Rigid, Tenderness - Rectal Exam Rectal Exam: Deferred - Exam Exam: NORMAL INSPECTION - Extremities Exam Extremities exam: Negative for: calf tenderness, pedal edema, tenderness, pedal pulses present Additional comments: bilat AKA - Back Exam Back exam: absent: CVA tenderness (L), CVA tenderness (R) - Neurological Exam Neurological exam: Alert, Altered, CN II-XII Intact - Psychiatric Exam Psychiatric exam: Depressed - Skin Skin Exam: Dry Results - Vital Signs Recent Vital Signs: Last Vital Signs Temp 98.8 F 11/17/16 08:00 Pulse 73 11/17/16 09:01 Resp 14 11/17/16 09:01 BP 153/35 H 11/17/16 09:25 Pulse Ox 99 11/17/16 09:01 - Labs Result Diagrams: 11/17/16 06:09 11/17/16 06:09 Labs: Laboratory Results - last 24 hr 11/16/16 11/16/16 11/16/16 06:08 12:17 17:26 WBC RBC Hgb Hct MCV MCH MCHC RDW Plt Count MPV Puncture Site pCO2 pO2 HCO3 ABG pH ABG Total CO2 ABG O2 Saturation ABG Base Excess ABG Hemoglobin ABG Carboxyhemoglobin POC ABG HHb (Measured) ABG Methemoglobin Rg Test A-a O2 Difference Respiratory Index Hgb O2 Saturation Mechanical Rate FiO2 Tidal Volume PEEP Sodium Potassium Chloride Carbon Dioxide Anion Gap BUN Creatinine Est GFR ( Amer) Est GFR (Non-Af Amer) POC Glucose (mg/dL) 237 H 325 H Random Glucose Hemoglobin A1c 5.0 Calcium Phosphorus Magnesium Total Bilirubin AST ALT Alkaline Phosphatase Total Protein Albumin Globulin Albumin/Globulin Ratio C. difficile Ag & Toxin 11/16/16 11/16/16 11/17/16 23:34 Unknown 05:08 WBC RBC Hgb Hct MCV MCH MCHC RDW Plt Count MPV Puncture Site pCO2 pO2 HCO3 ABG pH ABG Total CO2 ABG O2 Saturation ABG Base Excess ABG Hemoglobin ABG Carboxyhemoglobin POC ABG HHb (Measured) ABG Methemoglobin Rg Test A-a O2 Difference Respiratory Index Hgb O2 Saturation Mechanical Rate FiO2 Tidal Volume PEEP Sodium Potassium Chloride Carbon Dioxide Anion Gap BUN Creatinine Est GFR ( Amer) Est GFR (Non-Af Amer) POC Glucose (mg/dL) 331 H 250 H Random Glucose Hemoglobin A1c Calcium Phosphorus Magnesium Total Bilirubin AST ALT Alkaline Phosphatase Total Protein Albumin Globulin Albumin/Globulin Ratio C. difficile Ag & Toxin Negative 11/17/16 11/17/16 11/17/16 05:30 06:09 06:09 WBC 5.6 RBC 3.80 Hgb 10.9 L D Hct 33.9 L MCV 89.1 D MCH 28.6 MCHC 32.1 L RDW 17.2 H Plt Count 124 L D MPV 11.9 H Puncture Site Rb pCO2 45 pO2 113 H HCO3 29.2 H ABG pH 7.44 ABG Total CO2 32.0 H ABG O2 Saturation 99.0 H ABG Base Excess 5.5 H ABG Hemoglobin 14.4 ABG Carboxyhemoglobin 1.5 POC ABG HHb (Measured) 1.0 ABG Methemoglobin 1.4 Rg Test Na A-a O2 Difference 116.0 Respiratory Index 1.0 Hgb O2 Saturation 96.1 Mechanical Rate 14 FiO2 40.0 Tidal Volume 450 PEEP 5 Sodium 132 Potassium 2.6 L Chloride 96 L Carbon Dioxide 27 Anion Gap 12 BUN 24 H Creatinine 2.3 H Est GFR ( Amer) 26 Est GFR (Non-Af Amer) 21 POC Glucose (mg/dL) Random Glucose 228 H Hemoglobin A1c Calcium 7.5 L Phosphorus 2.7 Magnesium 1.9 Total Bilirubin 0.4 AST 16 ALT 20 Alkaline Phosphatase 84 Total Protein 5.6 L Albumin 2.4 L Globulin 3.1 Albumin/Globulin Ratio 0.8 L C. difficile Ag & Toxin Assessment & Plan (1) Acute respiratory failure Status: Acute (2) COPD (chronic obstructive pulmonary disease) Status: Chronic (3) ESRD (end stage renal disease) on dialysis Status: Chronic (4) Congestive heart failure Status: Chronic (5) Diabetes mellitus Status: Chronic (6) HTN (hypertension) Status: Chronic - Assessment and Plan (Free Text) Assessment: resp failure pneumonia LLL copd chf dm ams await final culture reports cont empiric rx
[2016-11-17] MEDS ORDERED: Gentamicin 80 mg in 0.9% NS 80 MG/100 ML BAG IVPB ONE (10:43)
--- NOTE | 2016-11-17 11:45 | CP.PCM.CON ---
History of Present Illness - History of Present Illness History of Present Illness: Reason for consultation: respiratory failure on ventilatory support/COPD 61 years old female residing at [facility] and has hx of DM II ; HTN; CKD and COPD. She was brought to the ED because of Change in Mental Status and vomiting. In the ED she was unresponsive. Her ABG indicated a PH of 7.04; PCO2 of 124; PO2 of 66 and HCO2 of 23. The patient was Intubated in the ED and placed on the mechanical ventilator. total patient was placed on CPAP and tolerating it. Patient awake responsive. On hemodialysis PMH: COPD with Emphysemia; DM II; HTN; CKD on Dialysis; Anxiety depressive disorder; GI bleed; glaucoma PSH: Bilateral AKA; Right IJ Permacath for dialysis SH: No Alcohol; No illegal drug use; No smoking; Live at [facility] FH: Unknown family history Review of Systems - Review of Systems Systems not reviewed;Unavailable: Intubated Past Patient History - Infectious Disease Hx of Infectious Diseases: None - Past Medical History & Family History Past Medical History?: Yes - Past Social History Smoking Status: Never Smoked - CARDIAC Hx Hypercholesterolemia: Yes Hx Hypertension: Yes Hx Peripheral Edema: Yes - PULMONARY Hx Asthma: Yes Hx Chronic Obstructive Pulmonary Disease (COPD): Yes Hx Emphysema: Yes Hx Pneumonia: Yes - HEENT Hx HEENT Problems: Yes (WEARS RX GLASSES) Hx Glaucoma: Yes - RENAL Hx Chronic Kidney Disease: Yes - HEMATOLOGICAL/ONCOLOGICAL Hx Anemia: Yes - INTEGUMENTARY Hx Dermatological Problems: Yes Other/Comment: notes from last pt visit/previous triage:redness under both breasts and b/l abd folds, healed skin to buttocks and sacrum - GASTROINTESTINAL Hx Gastrointestinal Disorders: Yes Other/Comment: obesity - GENITOURINARY/GYNECOLOGICAL Hx Genitourinary Disorders: Yes Hx Incontinence: Yes Hx Urinary Tract Infection: Yes - PSYCHIATRIC Hx Anxiety: Yes Hx Depression: Yes Hx Substance Use: No - ANESTHESIA Hx Anesthesia: Yes Hx Anesthesia Reactions: No Hx Malignant Hyperthermia: No Meds Allergies/Adverse Reactions: Allergies Allergy/AdvReac Type Severity Reaction Status Date / Time cilastatin sodium Allergy RASH Verified 11/14/16 18:46 [From Primaxin] imipenem [From Primaxin] Allergy RASH Verified 11/14/16 18:46 oxycodone Allergy RASH Verified 11/14/16 18:46 - Medications Medications: Current Medications Albuterol/Ipratropium (Duoneb 3 Mg/0.5 Mg (3 Ml) Ud) 3 ml INH RQ8 [facility] Last Admin: 11/17/16 08:38 Dose: 3 ml Aspirin (Aspirin Chewable) 81 mg NG DAILY [facility] Last Admin: 11/17/16 09:25 Dose: 81 mg Carvedilol (Coreg) 12.5 mg PO Q12 [facility] Last Admin: 11/17/16 09:25 Dose: 12.5 mg Dorzolamide HCl (Trusopt) 0 ml OU BID [facility] Last Admin: 11/17/16 09:26 Dose: 1 drop Famotidine (Pepcid) 20 mg IVP DAILY [facility] Last Admin: 11/17/16 09:26 Dose: 20 mg Gabapentin (Neurontin) 100 mg PO TID [facility] Last Admin: 11/17/16 09:26 Dose: 100 mg Heparin Sodium (Porcine) (Heparin) 5,000 units SC Q12 [facility] Last Admin: 11/17/16 09:25 Dose: 5,000 units Propofol (Diprivan) 1,000 mg in 100 mls @ 2.858 mls/hr IV .Q24H PRN; Protocol; 5 MCG/KG/MIN PRN Reason: TITRATE PER MD ORDER Last Titration: 11/17/16 09:39 Dose: 30 mcg/kg/min, 17.146 mls/hr Potassium Chloride (Potassium Chloride 10 Meq/100 Ml) 10 meq in 100 mls @ 100 mls/hr IVPB Q1 [facility] Stop: 11/17/16 12:59 Last Admin: 11/17/16 11:11 Dose: 100 mls/hr Cefepime HCl (Maxipime Iv 1 Gm Premix) 1 gm in 50 mls @ 100 mls/hr IVPB Q24H [facility] Insulin Human Regular (Novolin R) 0 unit SC Q6H [facility] PRN Reason: Protocol Last Admin: 11/17/16 05:13 Dose: 3 unit Methylprednisolone (Solu-Medrol) 40 mg IVP Q12 [facility] Last Admin: 11/17/16 09:26 Dose: 40 mg Rosuvastatin Calcium (Crestor) 10 mg PO HS [facility] Last Admin: 11/16/16 22:04 Dose: 10 mg Saccharomyces Boulardii (Florastor) 250 mg PO BID [facility] Last Admin: 11/17/16 09:25 Dose: 250 mg Physical Exam - Head Exam Head Exam: ATRAUMATIC, NORMOCEPHALIC - Eye Exam Eye Exam: Normal appearance - ENT Exam ENT Exam: Mucous Membranes Moist - Neck Exam Neck exam: Positive for: Normal Inspection - Respiratory Exam Respiratory Exam: Decreased Breath Sounds - Cardiovascular Exam Cardiovascular Exam: REGULAR RHYTHM - GI/Abdominal Exam GI & Abdominal Exam: Normal Bowel Sounds, Soft - Extremities Exam Additional comments: bilateral above-knee and patient - Neurological Exam Neurological exam: Alert Results - Vital Signs Recent Vital Signs: Last Vital Signs Temp 98.8 F 11/17/16 08:00 Pulse 78 11/17/16 11:00 Resp 15 11/17/16 11:00 BP 109/91 H 11/17/16 11:02 Pulse Ox 100 11/17/16 11:00 - Labs Result Diagrams: 11/17/16 06:09 11/17/16 06:09 Labs: Laboratory Results - last 24 hr 11/16/16 11/16/16 11/16/16 06:08 12:17 17:26 WBC RBC Hgb Hct MCV MCH MCHC RDW Plt Count MPV Puncture Site pCO2 pO2 HCO3 ABG pH ABG Total CO2 ABG O2 Saturation ABG Base Excess ABG Hemoglobin ABG Carboxyhemoglobin POC ABG HHb (Measured) ABG Methemoglobin Rg Test A-a O2 Difference Respiratory Index Hgb O2 Saturation Mechanical Rate FiO2 Tidal Volume PEEP Sodium Potassium Chloride Carbon Dioxide Anion Gap BUN Creatinine Est GFR ( Amer) Est GFR (Non-Af Amer) POC Glucose (mg/dL) 237 H 325 H Random Glucose Hemoglobin A1c 5.0 Calcium Phosphorus Magnesium Total Bilirubin AST ALT Alkaline Phosphatase Total Protein Albumin Globulin Albumin/Globulin Ratio C. difficile Ag & Toxin 11/16/16 11/16/16 11/17/16 23:34 Unknown 05:08 WBC RBC Hgb Hct MCV MCH MCHC RDW Plt Count MPV Puncture Site pCO2 pO2 HCO3 ABG pH ABG Total CO2 ABG O2 Saturation ABG Base Excess ABG Hemoglobin ABG Carboxyhemoglobin POC ABG HHb (Measured) ABG Methemoglobin Rg Test A-a O2 Difference Respiratory Index Hgb O2 Saturation Mechanical Rate FiO2 Tidal Volume PEEP Sodium Potassium Chloride Carbon Dioxide Anion Gap BUN Creatinine Est GFR ( Amer) Est GFR (Non-Af Amer) POC Glucose (mg/dL) 331 H 250 H Random Glucose Hemoglobin A1c Calcium Phosphorus Magnesium Total Bilirubin AST ALT Alkaline Phosphatase Total Protein Albumin Globulin Albumin/Globulin Ratio C. difficile Ag & Toxin Negative 11/17/16 11/17/16 11/17/16 05:30 06:09 06:09 WBC 5.6 RBC 3.80 Hgb 10.9 L D Hct 33.9 L MCV 89.1 D MCH 28.6 MCHC 32.1 L RDW 17.2 H Plt Count 124 L D MPV 11.9 H Puncture Site Rb pCO2 45 pO2 113 H HCO3 29.2 H ABG pH 7.44 ABG Total CO2 32.0 H ABG O2 Saturation 99.0 H ABG Base Excess 5.5 H ABG Hemoglobin 14.4 ABG Carboxyhemoglobin 1.5 POC ABG HHb (Measured) 1.0 ABG Methemoglobin 1.4 Rg Test Na A-a O2 Difference 116.0 Respiratory Index 1.0 Hgb O2 Saturation 96.1 Mechanical Rate 14 FiO2 40.0 Tidal Volume 450 PEEP 5 Sodium 132 Potassium 2.6 L Chloride 96 L Carbon Dioxide 27 Anion Gap 12 BUN 24 H Creatinine 2.3 H Est GFR ( Amer) 26 Est GFR (Non-Af Amer) 21 POC Glucose (mg/dL) Random Glucose 228 H Hemoglobin A1c Calcium 7.5 L Phosphorus 2.7 Magnesium 1.9 Total Bilirubin 0.4 AST 16 ALT 20 Alkaline Phosphatase 84 Total Protein 5.6 L Albumin 2.4 L Globulin 3.1 Albumin/Globulin Ratio 0.8 L C. difficile Ag & Toxin Assessment & Plan (1) Acute respiratory failure Status: Acute Comment: patient tolerating since morning. wean to extubate (2) Hypokalemia Status: Acute Comment: patient on hemodialysis, supplement potassium (3) COPD (chronic obstructive pulmonary disease) Status: Chronic Comment: continue IV steroids and nebulizer treatment (4) ESRD (end stage renal disease) on dialysis Status: Chronic
[2016-11-17] MEDS: Cefepime IV 1 gm in Dextrose 1 GM/50 ML BAG IVPB SCH (12:41)
--- NOTE | 2016-11-17 13:12 | RAD ---
Chest x-ray single frontal view History: PICC line insertion. Comparison: 11/17/2016 Findings: Left PICC line with tip extending into the cavoatrial junction/right atrium. Endotracheal tube extending into the mid thoracic trachea. NG tube extending into the stomach. Right central venous catheter extending into the right atrium. Moderate venous congestion. Prominent bibasilar airspace opacities with bilateral pleural effusions. Cardiomegaly. Degenerative changes in the spine and shoulders. Impression: Left PICC line with tip extending into the cavoatrial junction/right atrium. Endotracheal tube extending into the mid thoracic trachea. NG tube extending into the stomach. Right central venous catheter extending into the right atrium. Moderate venous congestion. Prominent bibasilar airspace opacities with bilateral pleural effusions. Cardiomegaly. Degenerative changes in the spine and shoulders.
--- NOTE | 2016-11-17 23:39 | PN ---
DATE: 11/17/2016 The patient is located in ICU, bed 6. REQUESTING PHYSICIAN: Dr. Remi Blackwood. REASON FOR RENAL CONSULTATION: End-stage renal disease, for continuation of hemodialysis. HISTORY OF PRESENT ILLNESS: The patient is a 61-year-old elderly female with a past medical history significant for long-standing hypertension, diabetes, anemia, bilateral AKA, COPD, asthma, who was recently started on hemodialysis in [facility], status post cardiac catheterizations about a month ago. The patient was admitted from the group home with vomiting and respiratory failure, CO2 retention and hypoxemia. The patient was intubated. Since admission, the patient is arousable, not in distress, on CPAP this morning. PHYSICAL EXAMINATION: VITAL SIGNS: Her This morning, blood pressure 174/32, pulse 76, respirations 17 , saturation 99%, FIO2 of 40% and temperature 97.6. Height 4 feet 10 inches and weight is 194 pounds. GENERAL: The patient is a 61-year-old elderly female on ventilator, arousable, tried to follow commands. HEENT: Pupils normal, reactive to light and accommodation. Conjunctivae pink. Sclerae anicteric. On ventilator. NECK: No thyroid enlargement. LUNGS: Symmetric on both sides. Bilateral breath sounds present. Clear on auscultation. CARDIOVASCULAR: [place] in the fifth intercostal space midclavicular line. S1 and S2 audible. No murmur or gallop. ABDOMEN: Normal in appearance, soft, tympanic. No guarding, no rigidity. No hepatosplenomegaly. CENTRAL NERVOUS SYSTEM: The patient is on ventilator, arousable. Tries to follow commands. EXTREMITIES: Bilateral AKA. CURRENT MEDICATIONS: Include as follows: Aspirin 81 mg daily, cefepime 1 gram q. 24 hours and Coreg 12.5 mg p.o. q. 12 hours, Crestor 10 mg at bedtime and DuoNeb inhaler q. 8 hours and Florastor 250 mg p.o. b.i.d. and gentamicin 80 mg IV piggyback x 1 and gabapentin 100 mg p.o. t.i.d. and insulin for sliding scale, Pepcid 20 mg IV daily and potassium chloride 10 mEq IV piggyback x 1, and KCl 20 mEq p.o. x 1 also given on 11/16/2016, KCl 40 mEq p.o. x 1 dose today , methylprednisone 40 mg IV q. 12 hours and eyedrops. LABORATORY DATA: Include as follows: As of 11/17/2016, WBC 5.6, hemoglobin 10.9, hematocrit is 33.9, platelets 124. ABG: pH 7.44 and pCO2 of 45,, saturation 99%. Vent settings: AC 14, tidal volume 450, FiO2 40%, PEEP of 5. Sodium 132, potassium 2.6, chloride 96, CO2 of 27, BUN 24, creatinine 2.3, glucose 228, calcium 7.5, phosphorus 2.7, magnesium 1.9, total bilirubin 0.4, AST 16, ALT 20, alkaline phosphatase is 84, total protein 5.6, albumin is 2.4, stool for C. diff toxin is negative as of 11/16/2016. Other reports, blood culture x 2 negative as of 11/14/2016 day 3, and urine culture is negative. MRSA screening is negative. As of 11/16/2016, blood culture x 1 negative day 1 again. Sputum culture positive for gram-negative rods. Stool culture is pending and stool for ova and parasite is negative. SUMMARY: The patient is a 61-year-old elderly female with bilateral amputation, AKA, hypertension, diabetes, anemia, end-stage renal disease, started on hemodialysis recently, a few weeks ago in , now admitted with respiratory failure from the group home on ventilator. 1. End-stage renal disease. Continue hemodialysis 3 times a week. 2. Hypokalemia, rule out gastrointestinal loss, check stool. Check urine for electrolytes. 3. Acute respiratory failure. We will continue to follow up pulmonary and also club licensee and possible extubation as per the club licensee, , if the patient tolerates CPAP. The patient will be scheduled for hemodialysis in a.m. We will follow with you. Thank you for allowing me to participate in your patient's care. Asha Saeed MD cc: [id number] TT: 11/17/2016 23:38:59 Confirmation # [id number] Dictation # [id number] [facility]
[2016-11-18] MEDS: (Novolin R) Insulin Human Regular 100 units/ml vial SC SCH ×5 (00:30→23:44)
[2016-11-18] MEDS: Propofol 10 mg/ml 1,000 MG/100 ML VIAL IV PRN ×2 (03:27→06:02)
[2016-11-18 04:23] LABS: ARTERIAL BLOOD GAS HCO3 26.4 mmol/L (21-28); ARTERIAL BLOOD GAS HEMOGLOBIN 11.7 g/dL (11.7-17.4); ARTERIAL BLOOD GAS O2 SAT 98.7 % (95-98); ARTERIAL BLOOD GAS PCO2 41 mm/Hg (35-45); ARTERIAL BLOOD GAS PH 7.42 (7.35-7.45); ARTERIAL BLOOD GAS PO2 100 mm/Hg (80-100); ARTERIAL BLOOD GAS TCO2 27.9 mmol/L (22-28)
[2016-11-18 06:34] LABS: ALBUMIN 2.2 g/dL (3.5-5.0)
[2016-11-18 06:37] LABS: ALB/GLOB RATIO 0.8 (1.0-2.1)
[2016-11-18 06:38] LABS: CALCIUM 7.1 mg/dl (8.6-10.4); MAGNESIUM 1.8 mg/dL (1.6-2.3)
[2016-11-18 06:39] LABS: BASO % 0.3 % (0.0-2.0); LYMPH # 0.2 K/uL (1.0-4.3); LYMPH % 4.7 % (20.0-40.0); MEAN CELL VOLUME 90.1 fL (81.0-99.0); MEAN CORPUSCULAR HEMOGLOBIN 28.8 pg (27.0-31.0); MEAN CORPUSCULAR HGB CONC 31.9 g/dL (33.0-37.0); MEAN PLATELET VOLUME 11.5 fL (7.2-11.7); MONO # 0.3 K/uL (0.0-0.8); MONO % 6.7 % (0.0-10.0); NEUT # 4.6 K/uL (1.8-7.0); NEUT % 88.3 % (50.0-75.0); NRBC % 0.1 % (0.0-2.0); PLATELET COUNT 108 K/uL (130-400); RBC 3.82 Mil/uL (3.80-5.20); RED CELL DISTRIBUTION WIDTH 17.5 % (11.5-14.5); WHITE BLOOD COUNT 5.2 K/uL (4.8-10.8)
--- NOTE | 2016-11-18 07:21 | CP.CCUPN ---
<Kisha Seay - Last Filed: 11/18/16 15:37> CCU Subjective - Physician Review Subjective (Free Text): 11/18/16 15:38 Patient extubated this AM and tolerating ventimask Afebrile overnight. Patient is AO x 1 and ROS unobtainable. NPO until swallow eval is passed. CCU Objective - Vital Signs / Intake & Output Vital Signs (Last 4 hours): Vital Signs Temp Pulse Resp BP Pulse Ox 11/18/16 07:00 76 14 100 11/18/16 06:59 74 12 174/67 H 100 11/18/16 06:00 68 6 L 100 11/18/16 05:56 69 13 171/48 H 100 11/18/16 05:00 74 15 100 11/18/16 04:15 70 14 186/36 H 99 11/18/16 04:00 98.3 F 76 14 100 11/18/16 03:32 72 13 229/58 H 100 11/18/16 03:29 79 11 L 233/62 H 100 Intake and Output (Last 8hrs): Intake & Output 11/17/16 11/18/16 11/18/16 22:59 06:59 14:59 Intake Total 277.5 332.0 Output Total 160 200 Balance 117.5 132.0 Intake: IV 20 200 Intake, IV Amount 82.5 132.0 Left PICC 82.5 132.0 Tube Feeding 175 Output: Urine 60 200 2-way Urethral 60 200 Stool 100 - Physical Exam Head: Positive for: Atraumatic, Normocephalic Pupils: Positive for: PERRL Extroacular Muscles: Positive for: EOMI Conjunctiva: Positive for: Normal. Negative for: Injected, Icteric Mouth: Positive for: Moist Mucous Membranes Respiratory/Chest: Negative for: Respiratory Distress, Accessory Muscle Use, Rales, Retracting, Rhonchi Cardiovascular: Positive for: Regular Rate and Rhythm, Normal S1, S2 Abdomen: Positive for: Normal Bowel Sounds. Negative for: Tenderness Lower Extremity: Positive for: Other (b/l AKA). Negative for: Normal Inspection Skin: Positive for: Warm, Dry, Normal Color Psychiatric: Positive for: Alert. Negative for: Oriented x 3 - Medications Active Medications: Active Medications Generic Name Dose Route Start Last Admin Trade Name Freq PRN Reason Stop Dose Admin Albuterol/Ipratropium 3 ml 11/16/16 08:45 11/17/16 23:44 Duoneb 3 Mg/0.5 Mg (3 Ml) Ud INH 3 ml RQ8 [facility]ETH Administration Aspirin 81 mg 11/16/16 10:15 11/17/16 09:25 Aspirin Chewable NG 81 mg DAILY [facility] Administration Carvedilol 12.5 mg 11/16/16 22:00 11/17/16 22:20 Coreg PO 12.5 mg Q12 [facility] Administration Dorzolamide HCl 0 ml 11/16/16 10:00 11/17/16 19:39 Trusopt OU 1 drop BID [facility] Administration Famotidine 20 mg 11/17/16 10:00 11/17/16 09:26 Pepcid IVP 20 mg DAILY [facility] Administration Gabapentin 100 mg 11/16/16 10:00 11/17/16 17:46 Neurontin PO 100 mg TID [facility] Administration Heparin Sodium (Porcine) 5,000 units 11/15/16 10:00 11/17/16 22:00 Heparin SC 5,000 units Q12 [facility] Administration Propofol 1,000 mg in 100 mls @ 2.858 mls/hr 11/14/16 23:47 11/18/16 06:02 Diprivan IV 35 mcg/kg/min .Q24H PRN 20.003 mls/hr TITRATE PER MD ORDER Administration Protocol 5 MCG/KG/MIN Cefepime HCl 1 gm in 50 mls @ 100 mls/hr 11/17/16 10:30 11/17/16 12:41 Maxipime Iv 1 Gm Premix IVPB 100 mls/hr Q24H [facility] Administration Insulin Human Regular 0 unit 11/15/16 06:00 11/18/16 06:10 Novolin R SC Not Given Q6H [facility] Protocol Methylprednisolone 40 mg 11/16/16 10:00 11/17/16 22:00 Solu-Medrol IVP 40 mg Q12 [facility] Administration Rosuvastatin Calcium 10 mg 11/16/16 22:00 11/17/16 22:00 Crestor PO 10 mg HS [facility] Administration Saccharomyces Boulardii 250 mg 11/16/16 10:00 11/17/16 17:46 Florastor PO 250 mg BID [facility] Administration - Patient Studies Lab Studies: Microbiology Studies 11/16/16 08:28 Blood Culture - Preliminary Blood-Venous NO GROWTH AFTER 24 HOURS 11/16/16 08:28 Gram Stain - Final Trachasp Sputum Culture - Preliminary Gram Negative Abdullahi Lab Studies 11/18/16 11/18/16 11/18/16 Range/Units 06:16 06:16 05:56 WBC 5.2 (4.8-10.8) K/uL RBC 3.82 (3.80-5.20) Mil/uL Hgb 11.0 (11.0-16.0) g/dL Hct 34.4 (34.0-47.0) % MCV 90.1 (81.0-99.0) fL MCH 28.8 (27.0-31.0) pg MCHC 31.9 L (33.0-37.0) g/dL RDW 17.5 H (11.5-14.5) % Plt Count 108 L (130-400) K/uL MPV 11.5 (7.2-11.7) fL Neut % (Auto) 88.3 H (50.0-75.0) % Lymph % (Auto) 4.7 L (20.0-40.0) % [place] % (Auto) 6.7 (0.0-10.0) % Eos % (Auto) 0.0 (0.0-4.0) % Baso % (Auto) 0.3 (0.0-2.0) % Neut # 4.6 (1.8-7.0) K/uL Lymph # 0.2 L (1.0-4.3) K/uL [place] # 0.3 (0.0-0.8) K/uL Eos # 0.0 (0.0-0.7) K/uL Baso # 0.0 (0.0-0.2) K/uL Puncture Site pCO2 (35-45) mm/Hg pO2 (80-100) mm/Hg HCO3 (21-28) mmol/L ABG pH (7.35-7.45) ABG Total CO2 (22-28) mmol/L ABG O2 Saturation (95-98) % ABG Base Excess (-2.0-3.0) mmol/L ABG Hemoglobin (11.7-17.4) g/dL ABG Carboxyhemoglobin (0.5-1.5) % POC ABG HHb (Measured) (0.0-5.0) % ABG Methemoglobin (0.0-3.0) % Rg Test A-a O2 Difference mm/Hg Respiratory Index Hgb O2 Saturation (95.0-98.0) % Mechanical Rate FiO2 % Tidal Volume PEEP Sodium 131 L (132-148) mmol/L Potassium 3.2 L (3.6-5.2) mmol/L Chloride 98 (98-107) mmol/L Carbon Dioxide 25 (22-30) mmol/L Anion Gap 11 (10-20) BUN 34 H (7-17) mg/dL Creatinine 2.2 H (0.7-1.2) MG/DL Est GFR ( Amer) 27 Est GFR (Non-Af Amer) 23 POC Glucose (mg/dL) 146 H (65-110) mg/dL Random Glucose 397 H (65-105) mg/dL Hemoglobin A1c (4.2-6.5) % Calcium 7.1 L (8.6-10.4) mg/dl Phosphorus 3.0 (2.5-4.5) mg/dL Magnesium 1.8 (1.6-2.3) mg/dL Total Bilirubin 0.4 (0.2-1.3) mg/dL AST 10 L D (14-36) U/L ALT 23 (9-52) U/L Alkaline Phosphatase 114 (38-126) U/L Total Protein 4.9 L (6.3-8.3) g/dL Albumin 2.2 L (3.5-5.0) g/dL Globulin 2.7 (2.2-3.9) gm/dL Albumin/Globulin Ratio 0.8 L (1.0-2.1) 11/18/16 11/17/16 11/17/16 Range/Units 04:15 23:35 17:32 WBC (4.8-10.8) K/uL RBC (3.80-5.20) Mil/uL Hgb (11.0-16.0) g/dL Hct (34.0-47.0) % MCV (81.0-99.0) fL MCH (27.0-31.0) pg MCHC (33.0-37.0) g/dL RDW (11.5-14.5) % Plt Count (130-400) K/uL MPV (7.2-11.7) fL Neut % (Auto) (50.0-75.0) % Lymph % (Auto) (20.0-40.0) % [place] % (Auto) (0.0-10.0) % Eos % (Auto) (0.0-4.0) % Baso % (Auto) (0.0-2.0) % Neut # (1.8-7.0) K/uL Lymph # (1.0-4.3) K/uL [place] # (0.0-0.8) K/uL Eos # (0.0-0.7) K/uL Baso # (0.0-0.2) K/uL Puncture Site Rb pCO2 41 (35-45) mm/Hg pO2 100 (80-100) mm/Hg HCO3 26.4 (21-28) mmol/L ABG pH 7.42 (7.35-7.45) ABG Total CO2 27.9 (22-28) mmol/L ABG O2 Saturation 98.7 H (95-98) % ABG Base Excess 1.9 (-2.0-3.0) mmol/L ABG Hemoglobin 11.7 (11.7-17.4) g/dL ABG Carboxyhemoglobin 1.7 H (0.5-1.5) % POC ABG HHb (Measured) 1.3 (0.0-5.0) % ABG Methemoglobin 1.3 (0.0-3.0) % Rg Test Na A-a O2 Difference 134.0 mm/Hg Respiratory Index 1.3 Hgb O2 Saturation 95.8 (95.0-98.0) % Mechanical Rate 14 FiO2 40.0 % Tidal Volume 450 PEEP 5 Sodium (132-148) mmol/L Potassium (3.6-5.2) mmol/L Chloride (98-107) mmol/L Carbon Dioxide (22-30) mmol/L Anion Gap (10-20) BUN (7-17) mg/dL Creatinine (0.7-1.2) MG/DL Est GFR ( Amer) Est GFR (Non-Af Amer) POC Glucose (mg/dL) 357 H 282 H (65-110) mg/dL Random Glucose (65-105) mg/dL Hemoglobin A1c (4.2-6.5) % Calcium (8.6-10.4) mg/dl Phosphorus (2.5-4.5) mg/dL Magnesium (1.6-2.3) mg/dL Total Bilirubin (0.2-1.3) mg/dL AST (14-36) U/L ALT (9-52) U/L Alkaline Phosphatase (38-126) U/L Total Protein (6.3-8.3) g/dL Albumin (3.5-5.0) g/dL Globulin (2.2-3.9) gm/dL Albumin/Globulin Ratio (1.0-2.1) 11/17/16 11/16/16 Range/Units 12:51 06:08 WBC (4.8-10.8) K/uL RBC (3.80-5.20) Mil/uL Hgb (11.0-16.0) g/dL Hct (34.0-47.0) % MCV (81.0-99.0) fL MCH (27.0-31.0) pg MCHC (33.0-37.0) g/dL RDW (11.5-14.5) % Plt Count (130-400) K/uL MPV (7.2-11.7) fL Neut % (Auto) (50.0-75.0) % Lymph % (Auto) (20.0-40.0) % [place] % (Auto) (0.0-10.0) % Eos % (Auto) (0.0-4.0) % Baso % (Auto) (0.0-2.0) % Neut # (1.8-7.0) K/uL Lymph # (1.0-4.3) K/uL [place] # (0.0-0.8) K/uL Eos # (0.0-0.7) K/uL Baso # (0.0-0.2) K/uL Puncture Site pCO2 (35-45) mm/Hg pO2 (80-100) mm/Hg HCO3 (21-28) mmol/L ABG pH (7.35-7.45) ABG Total CO2 (22-28) mmol/L ABG O2 Saturation (95-98) % ABG Base Excess (-2.0-3.0) mmol/L ABG Hemoglobin (11.7-17.4) g/dL ABG Carboxyhemoglobin (0.5-1.5) % POC ABG HHb (Measured) (0.0-5.0) % ABG Methemoglobin (0.0-3.0) % Rg Test A-a O2 Difference mm/Hg Respiratory Index Hgb O2 Saturation (95.0-98.0) % Mechanical Rate FiO2 % Tidal Volume PEEP Sodium (132-148) mmol/L Potassium (3.6-5.2) mmol/L Chloride (98-107) mmol/L Carbon Dioxide (22-30) mmol/L Anion Gap (10-20) BUN (7-17) mg/dL Creatinine (0.7-1.2) MG/DL Est GFR ( Amer) Est GFR (Non-Af Amer) POC Glucose (mg/dL) 285 H (65-110) mg/dL Random Glucose (65-105) mg/dL Hemoglobin A1c 5.0 (4.2-6.5) % Calcium (8.6-10.4) mg/dl Phosphorus (2.5-4.5) mg/dL Magnesium (1.6-2.3) mg/dL Total Bilirubin (0.2-1.3) mg/dL AST (14-36) U/L ALT (9-52) U/L Alkaline Phosphatase (38-126) U/L Total Protein (6.3-8.3) g/dL Albumin (3.5-5.0) g/dL Globulin (2.2-3.9) gm/dL Albumin/Globulin Ratio (1.0-2.1) Laboratory Results - last 24 hr 11/16/16 11/17/16 11/17/16 06:08 12:51 17:32 WBC RBC Hgb Hct MCV MCH MCHC RDW Plt Count MPV Neut % (Auto) Lymph % (Auto) [place] % (Auto) Eos % (Auto) Baso % (Auto) Neut # Lymph # [place] # Eos # Baso # Puncture Site pCO2 pO2 HCO3 ABG pH ABG Total CO2 ABG O2 Saturation ABG Base Excess ABG Hemoglobin ABG Carboxyhemoglobin POC ABG HHb (Measured) ABG Methemoglobin Rg Test A-a O2 Difference Respiratory Index Hgb O2 Saturation Mechanical Rate FiO2 Tidal Volume PEEP Sodium Potassium Chloride Carbon Dioxide Anion Gap BUN Creatinine Est GFR ( Amer) Est GFR (Non-Af Amer) POC Glucose (mg/dL) 285 H 282 H Random Glucose Hemoglobin A1c 5.0 Calcium Phosphorus Magnesium Total Bilirubin AST ALT Alkaline Phosphatase Total Protein Albumin Globulin Albumin/Globulin Ratio 11/17/16 11/18/16 11/18/16 23:35 04:15 05:56 WBC RBC Hgb Hct MCV MCH MCHC RDW Plt Count MPV Neut % (Auto) Lymph % (Auto) [place] % (Auto) Eos % (Auto) Baso % (Auto) Neut # Lymph # [place] # Eos # Baso # Puncture Site Rb pCO2 41 pO2 100 HCO3 26.4 ABG pH 7.42 ABG Total CO2 27.9 ABG O2 Saturation 98.7 H ABG Base Excess 1.9 ABG Hemoglobin 11.7 ABG Carboxyhemoglobin 1.7 H POC ABG HHb (Measured) 1.3 ABG Methemoglobin 1.3 Rg Test Na A-a O2 Difference 134.0 Respiratory Index 1.3 Hgb O2 Saturation 95.8 Mechanical Rate 14 FiO2 40.0 Tidal Volume 450 PEEP 5 Sodium Potassium Chloride Carbon Dioxide Anion Gap BUN Creatinine Est GFR ( Amer) Est GFR (Non-Af Amer) POC Glucose (mg/dL) 357 H 146 H Random Glucose Hemoglobin A1c Calcium Phosphorus Magnesium Total Bilirubin AST ALT Alkaline Phosphatase Total Protein Albumin Globulin Albumin/Globulin Ratio 11/18/16 11/18/16 06:16 06:16 WBC 5.2 RBC 3.82 Hgb 11.0 Hct 34.4 MCV 90.1 MCH 28.8 MCHC 31.9 L RDW 17.5 H Plt Count 108 L MPV 11.5 Neut % (Auto) 88.3 H Lymph % (Auto) 4.7 L [place] % (Auto) 6.7 Eos % (Auto) 0.0 Baso % (Auto) 0.3 Neut # 4.6 Lymph # 0.2 L [place] # 0.3 Eos # 0.0 Baso # 0.0 Puncture Site pCO2 pO2 HCO3 ABG pH ABG Total CO2 ABG O2 Saturation ABG Base Excess ABG Hemoglobin ABG Carboxyhemoglobin POC ABG HHb (Measured) ABG Methemoglobin Rg Test A-a O2 Difference Respiratory Index Hgb O2 Saturation Mechanical Rate FiO2 Tidal Volume PEEP Sodium 131 L Potassium 3.2 L Chloride 98 Carbon Dioxide 25 Anion Gap 11 BUN 34 H Creatinine 2.2 H Est GFR ( Amer) 27 Est GFR (Non-Af Amer) 23 POC Glucose (mg/dL) Random Glucose 397 H Hemoglobin A1c Calcium 7.1 L Phosphorus 3.0 Magnesium 1.8 Total Bilirubin 0.4 AST 10 L D ALT 23 Alkaline Phosphatase 114 Total Protein 4.9 L Albumin 2.2 L Globulin 2.7 Albumin/Globulin Ratio 0.8 L Fingerstick Blood Sugar Results: 146 Review of Systems - Review of Systems Systems not reviewed;Unavailable: Acuity of Condition Assessment/Plan - Assessment and Plan (Free Text) Assessment: 61 F PMHx DMII, HTN, CKD, COPD brought in from retirement for AMS and vomiting Plan: Neuro -Alert and responsive on low sedation -Diprivan gtt -CT head: no change from 06/26/16; small vessel ischemic change in deep white matter; 3mm lacunar infarct in R basal ganglia; no change; b/l mastoid air cell opacification -no acute issues HEENT -Hx of glaucoma -Dorzolamide bid Cardiovascular -Hx CHF -Echo (10/02/16): left ventricle systolic function is normal, EF: 65-70%, no aortic regurgitation is present, mitral regurgitation is mild, mild trciuspid regurgitation, mild pulmonary hypertension, mild pulmonic valvular regurgitation -Lipid panel WNL -ASA 81mg ng daily -Crestor 10mg po hs -Coreg 12.5mg po q12 Respiratory -Extubated this AM- tolerating ventimask -CXR 11/17: prominent bibasilar airspace opacities w/ b/l pleural effusions. Cardiomegaly; Degenerative changes in spine and shoulders -Trach asp: Klebsiella pneumoniae -Duoneb 3ml inh q8 -Solumedrol 40mg ivp q12 -Tigecycline 50mg ivpb q12 -Pulm Dr Quach consulted GI -some diarrhea -Florastor 250mg po bid -C Diff negative -negative ova and parasite Renal -ESRD on HD TTS -Nephrology Dr Saeed ID -Trach asp: Klebsiella pna -Blood culture negative -negative MRSA in nares -Urine culture negative -Tigecycline 50mg ivpb q12 -ID Dr Anne following Endo -HgbA1c 5 -Accucheck q6H -RISS q6 -Neurontin 100mg po tid Heme -no acute issues -H&H stable MSK -b/l AKA -no acute issues DVT ppx: Heparin 5000u sc q12 GI ppx: Pepcid 20mg ivp daily Code status: full code Case discussed with Dr Main Seay PGY2 <Lai Quach S - Last Filed: 11/18/16 16:21> CCU Subjective - Physician Review Critical Care Time Spent (in minutes): 30 CCU Objective - Vital Signs / Intake & Output Vital Signs (Last 4 hours): Vital Signs Temp Pulse Resp BP Pulse Ox 11/18/16 15:00 89 20 100 11/18/16 14:35 87 12 96/69 L 91 L 11/18/16 14:32 89 12 77/57 L 85 L 11/18/16 14:00 98 F 86 27 H 95 11/18/16 13:32 76 30 H 170/40 H 95 11/18/16 13:00 75 14 100 11/18/16 12:38 80 10 L 144/71 100 11/18/16 12:36 81 15 149/120 H 100 11/18/16 12:33 81 14 155/122 H 99 11/18/16 12:31 81 14 167/120 H 100 Intake and Output (Last 8hrs): Intake & Output 11/18/16 11/18/16 11/18/16 06:59 14:59 22:59 Intake Total 332.0 239.0 100 Output Total 200 300 20 Balance 132.0 -61.0 80 Weight 200 lb 200 lb Intake: IV 200 Intake, IV Amount 132.0 99.0 100 Left Hand 0 Left PICC 132.0 99.0 100 Right Hand 0 Tube Feeding 140 0 Output: Urine 200 100 20 2-way Urethral 200 100 20 Stool 200 - Medications Active Medications: Active Medications Generic Name Dose Route Start Last Admin Trade Name Freq PRN Reason Stop Dose Admin Albuterol/Ipratropium 3 ml 11/16/16 08:45 11/18/16 15:53 Duoneb 3 Mg/0.5 Mg (3 Ml) Ud INH 3 ml RQ8 [facility]ETH Administration Aspirin 81 mg 11/16/16 10:15 11/18/16 12:01 Aspirin Chewable NG 81 mg DAILY [facility] Administration Carvedilol 12.5 mg 11/16/16 22:00 11/18/16 15:08 Coreg PO Not Given Q12 [facility] Dorzolamide HCl 0 ml 11/16/16 10:00 11/18/16 12:10 Trusopt OU 1 drop BID [facility] Administration Famotidine 20 mg 11/17/16 10:00 11/18/16 12:10 Pepcid IVP 20 mg DAILY [facility] Administration Gabapentin 100 mg 11/16/16 10:00 11/18/16 14:10 Neurontin PO 100 mg TID [facility] Administration Heparin Sodium (Porcine) 5,000 units 11/15/16 10:00 11/18/16 12:10 Heparin SC 5,000 units Q12 [facility] Administration Tigecycline 50 mg/ Sodium 100 mls @ 100 mls/hr 11/19/16 10:00 Chloride IVPB Q12H [facility] Insulin Glargine 10 unit 11/18/16 22:00 Lantus SC HS [facility] Insulin Human Regular 0 unit 11/15/16 06:00 11/18/16 12:15 Novolin R SC 2 unit Q6H [facility] Administration Protocol Methylprednisolone 40 mg 11/16/16 10:00 11/18/16 12:10 Solu-Medrol IVP 40 mg Q12 [facility] Administration Rosuvastatin Calcium 10 mg 11/16/16 22:00 11/17/16 22:00 Crestor PO 10 mg HS [facility] Administration Saccharomyces Boulardii 250 mg 11/16/16 10:00 11/18/16 12:10 Florastor PO 250 mg BID [facility] Administration - Patient Studies Lab Studies: Microbiology Studies 11/18/16 14:00 [facility]16 Unknown Stool Culture - Final Stool NO SALMONELLA, SHIGELLA OR CAMPYLOBACTER ISOLATED. Ova and Parasite Concentrate Exam - Final 11/16/16 08:28 Blood Culture - Preliminary Blood-Venous NO GROWTH AFTER 48 HOURS 11/16/16 08:28 Gram Stain - Final [facility] Sputum Culture - Preliminary Klebsiella Pneumoniae Lab Studies 11/18/16 11/18/16 11/18/16 Range/Units 11:32 07:38 06:16 WBC (4.8-10.8) K/uL RBC (3.80-5.20) Mil/uL Hgb (11.0-16.0) g/dL Hct (34.0-47.0) % MCV (81.0-99.0) fL MCH (27.0-31.0) pg MCHC (33.0-37.0) g/dL RDW (11.5-14.5) % Plt Count (130-400) K/uL MPV (7.2-11.7) fL Neut % (Auto) (50.0-75.0) % Lymph % (Auto) (20.0-40.0) % [place] % (Auto) (0.0-10.0) % Eos % (Auto) (0.0-4.0) % Baso % (Auto) (0.0-2.0) % Neut # (1.8-7.0) K/uL Lymph # (1.0-4.3) K/uL [place] # (0.0-0.8) K/uL Eos # (0.0-0.7) K/uL Baso # (0.0-0.2) K/uL Neutrophils % (Manual) (50-75) % Lymphocytes % (Manual) (20-40) % Monocytes % (Manual) (0-10) % Platelet Estimate (NORMAL) Hypochromasia (manual) Poikilocytosis (manual Anisocytosis (manual) Gould Cells Puncture Site pCO2 (35-45) mm/Hg pO2 (80-100) mm/Hg HCO3 (21-28) mmol/L ABG pH (7.35-7.45) ABG Total CO2 (22-28) mmol/L ABG O2 Saturation (95-98) % ABG Base Excess (-2.0-3.0) mmol/L ABG Hemoglobin (11.7-17.4) g/dL ABG Carboxyhemoglobin (0.5-1.5) % POC ABG HHb (Measured) (0.0-5.0) % ABG Methemoglobin (0.0-3.0) % Rg Test A-a O2 Difference mm/Hg Respiratory Index Hgb O2 Saturation (95.0-98.0) % Mechanical Rate FiO2 % Tidal Volume PEEP Sodium 131 L (132-148) mmol/L Potassium 3.2 L (3.6-5.2) mmol/L Chloride 98 (98-107) mmol/L Carbon Dioxide 25 (22-30) mmol/L Anion Gap 11 (10-20) BUN 34 H (7-17) mg/dL Creatinine 2.2 H (0.7-1.2) MG/DL Est GFR ( Amer) 27 Est GFR (Non-Af Amer) 23 POC Glucose (mg/dL) 244 H 449 H* (65-110) mg/dL Random Glucose 397 H (65-105) mg/dL Calcium 7.1 L (8.6-10.4) mg/dl Phosphorus 3.0 (2.5-4.5) mg/dL Magnesium 1.8 (1.6-2.3) mg/dL Total Bilirubin 0.4 (0.2-1.3) mg/dL AST 10 L D (14-36) U/L ALT 23 (9-52) U/L Alkaline Phosphatase 114 (38-126) U/L Total Protein 4.9 L (6.3-8.3) g/dL Albumin 2.2 L (3.5-5.0) g/dL Globulin 2.7 (2.2-3.9) gm/dL Albumin/Globulin Ratio 0.8 L (1.0-2.1) 11/18/16 11/18/16 11/18/16 Range/Units 06:16 05:56 04:15 WBC 5.2 (4.8-10.8) K/uL RBC 3.82 (3.80-5.20) Mil/uL Hgb 11.0 (11.0-16.0) g/dL Hct 34.4 (34.0-47.0) % MCV 90.1 (81.0-99.0) fL MCH 28.8 (27.0-31.0) pg MCHC 31.9 L (33.0-37.0) g/dL RDW 17.5 H (11.5-14.5) % Plt Count 108 L (130-400) K/uL MPV 11.5 (7.2-11.7) fL Neut % (Auto) 88.3 H (50.0-75.0) % Lymph % (Auto) 4.7 L (20.0-40.0) % [place] % (Auto) 6.7 (0.0-10.0) % Eos % (Auto) 0.0 (0.0-4.0) % Baso % (Auto) 0.3 (0.0-2.0) % Neut # 4.6 (1.8-7.0) K/uL Lymph # 0.2 L (1.0-4.3) K/uL [place] # 0.3 (0.0-0.8) K/uL Eos # 0.0 (0.0-0.7) K/uL Baso # 0.0 (0.0-0.2) K/uL Neutrophils % (Manual) 90 H (50-75) % Lymphocytes % (Manual) 5 L (20-40) % Monocytes % (Manual) 5 (0-10) % Platelet Estimate Slightly decreased L (NORMAL) Hypochromasia (manual) Slight Poikilocytosis (manual Slight Anisocytosis (manual) Slight Brenda Cells Slight Puncture Site Rb pCO2 41 (35-45) mm/Hg pO2 100 (80-100) mm/Hg HCO3 26.4 (21-28) mmol/L ABG pH 7.42 (7.35-7.45) ABG Total CO2 27.9 (22-28) mmol/L ABG O2 Saturation 98.7 H (95-98) % ABG Base Excess 1.9 (-2.0-3.0) mmol/L ABG Hemoglobin 11.7 (11.7-17.4) g/dL ABG Carboxyhemoglobin 1.7 H (0.5-1.5) % POC ABG HHb (Measured) 1.3 (0.0-5.0) % ABG Methemoglobin 1.3 (0.0-3.0) % Rg Test Na A-a O2 Difference 134.0 mm/Hg Respiratory Index 1.3 Hgb O2 Saturation 95.8 (95.0-98.0) % Mechanical Rate 14 FiO2 40.0 % Tidal Volume 450 PEEP 5 Sodium (132-148) mmol/L Potassium (3.6-5.2) mmol/L Chloride (98-107) mmol/L Carbon Dioxide (22-30) mmol/L Anion Gap (10-20) BUN (7-17) mg/dL Creatinine (0.7-1.2) MG/DL Est GFR ( Amer) Est GFR (Non-Af Amer) POC Glucose (mg/dL) 146 H (65-110) mg/dL Random Glucose (65-105) mg/dL Calcium (8.6-10.4) mg/dl Phosphorus (2.5-4.5) mg/dL Magnesium (1.6-2.3) mg/dL Total Bilirubin (0.2-1.3) mg/dL AST (14-36) U/L ALT (9-52) U/L Alkaline Phosphatase (38-126) U/L Total Protein (6.3-8.3) g/dL Albumin (3.5-5.0) g/dL Globulin (2.2-3.9) gm/dL Albumin/Globulin Ratio (1.0-2.1) 11/17/16 11/17/16 Range/Units 23:35 17:32 WBC (4.8-10.8) K/uL RBC (3.80-5.20) Mil/uL Hgb (11.0-16.0) g/dL Hct (34.0-47.0) % MCV (81.0-99.0) fL MCH (27.0-31.0) pg MCHC (33.0-37.0) g/dL RDW (11.5-14.5) % Plt Count (130-400) K/uL MPV (7.2-11.7) fL Neut % (Auto) (50.0-75.0) % Lymph % (Auto) (20.0-40.0) % [place] % (Auto) (0.0-10.0) % Eos % (Auto) (0.0-4.0) % Baso % (Auto) (0.0-2.0) % Neut # (1.8-7.0) K/uL Lymph # (1.0-4.3) K/uL [place] # (0.0-0.8) K/uL Eos # (0.0-0.7) K/uL Baso # (0.0-0.2) K/uL Neutrophils % (Manual) (50-75) % Lymphocytes % (Manual) (20-40) % Monocytes % (Manual) (0-10) % Platelet Estimate (NORMAL) Hypochromasia (manual) Poikilocytosis (manual Anisocytosis (manual) Gould Cells Puncture Site pCO2 (35-45) mm/Hg pO2 (80-100) mm/Hg HCO3 (21-28) mmol/L ABG pH (7.35-7.45) ABG Total CO2 (22-28) mmol/L ABG O2 Saturation (95-98) % ABG Base Excess (-2.0-3.0) mmol/L ABG Hemoglobin (11.7-17.4) g/dL ABG Carboxyhemoglobin (0.5-1.5) % POC ABG HHb (Measured) (0.0-5.0) % ABG Methemoglobin (0.0-3.0) % Rg Test A-a O2 Difference mm/Hg Respiratory Index Hgb O2 Saturation (95.0-98.0) % Mechanical Rate FiO2 % Tidal Volume PEEP Sodium (132-148) mmol/L Potassium (3.6-5.2) mmol/L Chloride (98-107) mmol/L Carbon Dioxide (22-30) mmol/L Anion Gap (10-20) BUN (7-17) mg/dL Creatinine (0.7-1.2) MG/DL Est GFR ( Amer) Est GFR (Non-Af Amer) POC Glucose (mg/dL) 357 H 282 H (65-110) mg/dL Random Glucose (65-105) mg/dL Calcium (8.6-10.4) mg/dl Phosphorus (2.5-4.5) mg/dL Magnesium (1.6-2.3) mg/dL Total Bilirubin (0.2-1.3) mg/dL AST (14-36) U/L ALT (9-52) U/L Alkaline Phosphatase (38-126) U/L Total Protein (6.3-8.3) g/dL Albumin (3.5-5.0) g/dL Globulin (2.2-3.9) gm/dL Albumin/Globulin Ratio (1.0-2.1) Laboratory Results - last 24 hr 11/17/16 11/17/16 11/18/16 17:32 23:35 04:15 WBC RBC Hgb Hct MCV MCH MCHC RDW Plt Count MPV Neut % (Auto) Lymph % (Auto) [place] % (Auto) Eos % (Auto) Baso % (Auto) Neut # Lymph # [place] # Eos # Baso # Neutrophils % (Manual) Lymphocytes % (Manual) Monocytes % (Manual) Platelet Estimate Hypochromasia (manual) Poikilocytosis (manual Anisocytosis (manual) Gould Cells Puncture Site Rb pCO2 41 pO2 100 HCO3 26.4 ABG pH 7.42 ABG Total CO2 27.9 ABG O2 Saturation 98.7 H ABG Base Excess 1.9 ABG Hemoglobin 11.7 ABG Carboxyhemoglobin 1.7 H POC ABG HHb (Measured) 1.3 ABG Methemoglobin 1.3 Rg Test Na A-a O2 Difference 134.0 Respiratory Index 1.3 Hgb O2 Saturation 95.8 Mechanical Rate 14 FiO2 40.0 Tidal Volume 450 PEEP 5 Sodium Potassium Chloride Carbon Dioxide Anion Gap BUN Creatinine Est GFR ( Amer) Est GFR (Non-Af Amer) POC Glucose (mg/dL) 282 H 357 H Random Glucose Calcium Phosphorus Magnesium Total Bilirubin AST ALT Alkaline Phosphatase Total Protein Albumin Globulin Albumin/Globulin Ratio 11/18/16 11/18/16 11/18/16 05:56 06:16 06:16 WBC 5.2 RBC 3.82 Hgb 11.0 Hct 34.4 MCV 90.1 MCH 28.8 MCHC 31.9 L RDW 17.5 H Plt Count 108 L MPV 11.5 Neut % (Auto) 88.3 H Lymph % (Auto) 4.7 L [place] % (Auto) 6.7 Eos % (Auto) 0.0 Baso % (Auto) 0.3 Neut # 4.6 Lymph # 0.2 L [place] # 0.3 Eos # 0.0 Baso # 0.0 Neutrophils % (Manual) 90 H Lymphocytes % (Manual) 5 L Monocytes % (Manual) 5 Platelet Estimate Slightly decreased L Hypochromasia (manual) Slight Poikilocytosis (manual Slight Anisocytosis (manual) Slight Gould Cells Slight Puncture Site pCO2 pO2 HCO3 ABG pH ABG Total CO2 ABG O2 Saturation ABG Base Excess ABG Hemoglobin ABG Carboxyhemoglobin POC ABG HHb (Measured) ABG Methemoglobin Rg Test A-a O2 Difference Respiratory Index Hgb O2 Saturation Mechanical Rate FiO2 Tidal Volume PEEP Sodium 131 L Potassium 3.2 L Chloride 98 Carbon Dioxide 25 Anion Gap 11 BUN 34 H Creatinine 2.2 H Est GFR ( Amer) 27 Est GFR (Non-Af Amer) 23 POC Glucose (mg/dL) 146 H Random Glucose 397 H Calcium 7.1 L Phosphorus 3.0 Magnesium 1.8 Total Bilirubin 0.4 AST 10 L D ALT 23 Alkaline Phosphatase 114 Total Protein 4.9 L Albumin 2.2 L Globulin 2.7 Albumin/Globulin Ratio 0.8 L 11/18/16 11/18/16 07:38 11:32 WBC RBC Hgb Hct MCV MCH MCHC RDW Plt Count MPV Neut % (Auto) Lymph % (Auto) [place] % (Auto) Eos % (Auto) Baso % (Auto) Neut # Lymph # [place] # Eos # Baso # Neutrophils % (Manual) Lymphocytes % (Manual) Monocytes % (Manual) Platelet Estimate Hypochromasia (manual) Poikilocytosis (manual Anisocytosis (manual) Brenda Cells Puncture Site pCO2 pO2 HCO3 ABG pH ABG Total CO2 ABG O2 Saturation ABG Base Excess ABG Hemoglobin ABG Carboxyhemoglobin POC ABG HHb (Measured) ABG Methemoglobin Rg Test A-a O2 Difference Respiratory Index Hgb O2 Saturation Mechanical Rate FiO2 Tidal Volume PEEP Sodium Potassium Chloride Carbon Dioxide Anion Gap BUN Creatinine Est GFR ( Amer) Est GFR (Non-Af Amer) POC Glucose (mg/dL) 449 H* 244 H Random Glucose Calcium Phosphorus Magnesium Total Bilirubin AST ALT Alkaline Phosphatase Total Protein Albumin Globulin Albumin/Globulin Ratio Assessment/Plan (1) Acute respiratory failure Current Visit: Yes Status: Acute (2) Hypokalemia Current Visit: Yes Status: Acute (3) COPD (chronic obstructive pulmonary disease) Current Visit: Yes Status: Chronic (4) ESRD (end stage renal disease) on dialysis Current Visit: Yes Status: Chronic Attending/Attestation - Attestation I have personally seen and examined this patient.: Yes I have fully participated in the care of the patient.: Yes I have reviewed all pertinent clinical information: Yes Notes (Text): 11/18/16 16:20 patient seen and examined in the intensive care unit. Case discussed with house staff in the morning rounds. Patient extubated after weaning trial Status post hemodialysis Continue present treatment
[2016-11-18 08:29] LABS: ANISOCYTOSIS SLIGHT; HYPOCHROMIC SLIGHT; LYMPHOCYTE 5 % (20-40); MONOCYTE 5 % (0-10); NEUTROPHIL 90 % (50-75); PLATELET ESTIMATE SLIGHTLY DECREASED (NORMAL); POIKILOCYTOSIS SLIGHT; TOTAL CELLS COUNTED 100
[2016-11-18 08:30] LABS: BURR CELLS SLIGHT
[2016-11-18] MEDS ORDERED: (Novolin R) Insulin Human Regular 100 units/ml vial SC ONE (08:38)
[2016-11-18] MEDS: Albuterol-Ipratrop 3 mg / 0.5 (3 ml) UD INH SCH ×3 (08:41→23:38)
[2016-11-18] MEDS ORDERED: Potassium Chloride 20 mEq/15 ml LIQ UD PO ONE (10:15)
[2016-11-18] MEDS: Dorzolamide 2% Opht Sol 10ml OU SCH ×2 (12:10→17:02)
[2016-11-18] MEDS: Saccharomyces Boulardi 250 mg Cap PO SCH ×2 (12:10→17:00)
[2016-11-18] MEDS: MethylPREDNISolone 40 mg Vial IVP SCH ×2 (12:10→21:38)
--- NOTE | 2016-11-18 12:12 | CP.PCM.PN ---
Subjective - Date & Time of Evaluation Date of Evaluation: 11/18/16 Time of Evaluation: 12:12 - Subjective Subjective: pt seen and examined during hd, uf goal is about 2.5 lit , pt remains intubated, arousable. under sedation Objective - Vital Signs/Intake and Output Vital Signs (last 24 hours): Temp Pulse Resp BP Pulse Ox 98.3 F 75 14 140/59 L 100 11/18/16 09:20 11/18/16 09:20 11/18/16 09:20 11/18/16 11:20 11/18/16 09:20 Intake and Output: 11/18/16 11/18/16 06:59 18:59 Intake Total 433.0 16.5 Output Total 300 200 Balance 133.0 -183.5 - Medications Medications: Current Medications Albuterol/Ipratropium (Duoneb 3 Mg/0.5 Mg (3 Ml) Ud) 3 ml INH RQ8 [facility] Last Admin: 11/18/16 08:41 Dose: 3 ml Aspirin (Aspirin Chewable) 81 mg NG DAILY [facility] Last Admin: 11/17/16 09:25 Dose: 81 mg Carvedilol (Coreg) 12.5 mg PO Q12 [facility] Last Admin: 11/17/16 22:20 Dose: 12.5 mg Dorzolamide HCl (Trusopt) 0 ml OU BID [facility] Last Admin: 11/17/16 19:39 Dose: 1 drop Famotidine (Pepcid) 20 mg IVP DAILY [facility] Last Admin: 11/17/16 09:26 Dose: 20 mg Gabapentin (Neurontin) 100 mg PO TID [facility] Last Admin: 11/17/16 17:46 Dose: 100 mg Heparin Sodium (Porcine) (Heparin) 5,000 units SC Q12 [facility] Last Admin: 11/17/16 22:00 Dose: 5,000 units Propofol (Diprivan) 1,000 mg in 100 mls @ 2.858 mls/hr IV .Q24H PRN; Protocol; 5 MCG/KG/MIN PRN Reason: TITRATE PER MD ORDER Last Admin: 11/18/16 06:02 Dose: 35 mcg/kg/min, 20.003 mls/hr Cefepime HCl (Maxipime Iv 1 Gm Premix) 1 gm in 50 mls @ 100 mls/hr IVPB Q24H [facility] Last Admin: 11/17/16 12:41 Dose: 100 mls/hr Insulin Glargine (Lantus) 10 unit SC HS [facility] Insulin Human Regular (Novolin R) 0 unit SC Q6H [facility] PRN Reason: Protocol Last Admin: 11/18/16 06:10 Dose: Not Given Methylprednisolone (Solu-Medrol) 40 mg IVP Q12 [facility] Last Admin: 11/17/16 22:00 Dose: 40 mg Rosuvastatin Calcium (Crestor) 10 mg PO HS [facility] Last Admin: 11/17/16 22:00 Dose: 10 mg Saccharomyces Boulardii (Florastor) 250 mg PO BID [facility] Last Admin: 11/17/16 17:46 Dose: 250 mg - Labs Labs: 11/18/16 06:16 11/18/16 06:16 PT 11.5 SECONDS (9.7-12.2) 11/16/16 06:08 INR 1.0 11/16/16 06:08 APTT 31 SECONDS (21-34) 11/16/16 06:08 - Constitutional Appears: Well, Other - Head Exam Head Exam: ATRAUMATIC, NORMOCEPHALIC - Eye Exam Eye Exam: EOMI, Normal appearance, PERRL Pupil Exam: NORMAL ACCOMODATION, PERRL - ENT Exam ENT Exam: Mucous Membranes Moist, Normal Exam - Neck Exam Neck Exam: Full ROM, Normal Inspection. absent: Lymphadenopathy - Respiratory Exam Additional comments: pt is on ventilator, under sedation, b/l bs+ - Cardiovascular Exam Cardiovascular Exam: REGULAR RHYTHM, +S1, +S2. absent: Murmur - Rectal Exam Rectal Exam: Deferred - Extremities Exam Additional comments: B/L AKA - Back Exam Additional comments: on ventilator, under sedation, arousable, moving both UE - Psychiatric Exam Additional comments: on vent Assessment and Plan - Assessment and Plan (Free Text) Plan: 61 yo obese HF with pmh/o htn, dm, esrd, copd/asthma , resident of [place] was admitted with AMS, resp. failure, intubated in the ER and admitted to icu,pt is being dilayzed 1. ESRD, c/w HD 3 x aweek, TTS stable hd tx, had a UF ab out 2.5 lit 2. Acute resp. failure, may be sec to copd exaccerbation, r/o pneumonia 3. HTN, bp is stable, 4. DM, continue to monitor sugars 5. GNR in sputum, iv abx as per pulmonary
--- NOTE | 2016-11-18 12:33 | RAD ---
Chest x-ray single frontal view History: Intubated. Comparison: 11/17/2016 Findings: Lines and tubes in stable position. Moderate to severe venous congestion. Bibasilar airspace opacities with small bilateral pleural effusions. Cardiomegaly. Impression: Lines and tubes in stable position. Moderate to severe venous congestion. Bibasilar airspace opacities with small bilateral pleural effusions. Cardiomegaly.
--- NOTE | 2016-11-18 12:48 | CP.PCM.PN ---
Subjective - Date & Time of Evaluation Date of Evaluation: 11/18/16 Time of Evaluation: 07:00 - Subjective Subjective: growing CRE sputum start Tygacil lungs less congested no fever Objective - Vital Signs/Intake and Output Vital Signs (last 24 hours): Temp Pulse Resp BP Pulse Ox 98.2 F 83 14 137/58 L 100 11/18/16 12:20 11/18/16 12:20 11/18/16 12:20 11/18/16 12:20 11/18/16 12:20 Intake and Output: 11/18/16 11/18/16 06:59 18:59 Intake Total 433.0 16.5 Output Total 300 200 Balance 133.0 -183.5 - Medications Medications: Current Medications Albuterol/Ipratropium (Duoneb 3 Mg/0.5 Mg (3 Ml) Ud) 3 ml INH RQ8 [facility] Last Admin: 11/18/16 08:41 Dose: 3 ml Aspirin (Aspirin Chewable) 81 mg NG DAILY [facility] Last Admin: 11/17/16 09:25 Dose: 81 mg Carvedilol (Coreg) 12.5 mg PO Q12 [facility] Last Admin: 11/17/16 22:20 Dose: 12.5 mg Dorzolamide HCl (Trusopt) 0 ml OU BID [facility] Last Admin: 11/17/16 19:39 Dose: 1 drop Famotidine (Pepcid) 20 mg IVP DAILY [facility] Last Admin: 11/17/16 09:26 Dose: 20 mg Gabapentin (Neurontin) 100 mg PO TID [facility] Last Admin: 11/17/16 17:46 Dose: 100 mg Heparin Sodium (Porcine) (Heparin) 5,000 units SC Q12 [facility] Last Admin: 11/17/16 22:00 Dose: 5,000 units Propofol (Diprivan) 1,000 mg in 100 mls @ 2.858 mls/hr IV .Q24H PRN; Protocol; 5 MCG/KG/MIN PRN Reason: TITRATE PER MD ORDER Last Admin: 11/18/16 06:02 Dose: 35 mcg/kg/min, 20.003 mls/hr Cefepime HCl (Maxipime Iv 1 Gm Premix) 1 gm in 50 mls @ 100 mls/hr IVPB Q24H [facility] Last Admin: 11/17/16 12:41 Dose: 100 mls/hr Tigecycline 100 mg/ Sodium (Chloride) 100 mls @ 100 mls/hr IVPB ONCE ONE Stop: 11/18/16 14:29 Tigecycline 50 mg/ Sodium (Chloride) 100 mls @ 100 mls/hr IVPB Q12H [facility] Insulin Glargine (Lantus) 10 unit SC HS [facility] Insulin Human Regular (Novolin R) 0 unit SC Q6H [facility] PRN Reason: Protocol Last Admin: 11/18/16 06:10 Dose: Not Given Methylprednisolone (Solu-Medrol) 40 mg IVP Q12 [facility] Last Admin: 11/17/16 22:00 Dose: 40 mg Rosuvastatin Calcium (Crestor) 10 mg PO HS [facility] Last Admin: 11/17/16 22:00 Dose: 10 mg Saccharomyces Boulardii (Florastor) 250 mg PO BID [facility] Last Admin: 11/17/16 17:46 Dose: 250 mg - Labs Labs: 11/18/16 06:16 11/18/16 06:16 PT 11.5 SECONDS (9.7-12.2) 11/16/16 06:08 INR 1.0 11/16/16 06:08 APTT 31 SECONDS (21-34) 11/16/16 06:08 Assessment and Plan (1) Acute respiratory failure Status: Acute (2) COPD (chronic obstructive pulmonary disease) Status: Chronic (3) ESRD (end stage renal disease) on dialysis Status: Chronic (4) Congestive heart failure Status: Chronic (5) Diabetes mellitus Status: Chronic (6) HTN (hypertension) Status: Chronic
[2016-11-18] MEDS: Cefepime IV 1 gm in Dextrose 1 GM/50 ML BAG IVPB SCH (15:08)
--- NOTE | 2016-11-18 17:13 | CP.PCM.PN ---
Subjective - Date & Time of Evaluation Date of Evaluation: 11/18/16 Time of Evaluation: 17:14 - Subjective Subjective: confused extubated now has diff speaking loud likely due to intubation recent Objective - Vital Signs/Intake and Output Vital Signs (last 24 hours): Temp Pulse Resp BP Pulse Ox 98 F 95 H 24 118/78 96 11/18/16 14:00 11/18/16 16:32 11/18/16 16:32 11/18/16 16:32 11/18/16 16:32 Intake and Output: 11/18/16 11/18/16 06:59 18:59 Intake Total 433.0 339.0 Output Total 300 320 Balance 133.0 19.0 - Medications Medications: Current Medications Albuterol/Ipratropium (Duoneb 3 Mg/0.5 Mg (3 Ml) Ud) 3 ml INH RQ8 [facility] Last Admin: 11/18/16 15:53 Dose: 3 ml Aspirin (Aspirin Chewable) 81 mg NG DAILY [facility] Last Admin: 11/18/16 12:01 Dose: 81 mg Carvedilol (Coreg) 12.5 mg PO Q12 [facility] Last Admin: 11/18/16 15:08 Dose: Not Given Dorzolamide HCl (Trusopt) 0 ml OU BID [facility] Last Admin: 11/18/16 17:02 Dose: 1 drop Famotidine (Pepcid) 20 mg IVP DAILY [facility] Last Admin: 11/18/16 12:10 Dose: 20 mg Gabapentin (Neurontin) 100 mg PO TID [facility] Last Admin: 11/18/16 17:02 Dose: 100 mg Heparin Sodium (Porcine) (Heparin) 5,000 units SC Q12 [facility] Last Admin: 11/18/16 12:10 Dose: 5,000 units Tigecycline 50 mg/ Sodium (Chloride) 100 mls @ 100 mls/hr IVPB Q12H [facility] Insulin Glargine (Lantus) 10 unit SC HS [facility] Insulin Human Regular (Novolin R) 0 unit SC Q6H [facility] PRN Reason: Protocol Last Admin: 11/18/16 12:15 Dose: 2 unit Methylprednisolone (Solu-Medrol) 40 mg IVP Q12 [facility] Last Admin: 11/18/16 12:10 Dose: 40 mg Rosuvastatin Calcium (Crestor) 10 mg PO HS [facility] Last Admin: 11/17/16 22:00 Dose: 10 mg Saccharomyces Boulardii (Florastor) 250 mg PO BID [facility] Last Admin: 11/18/16 17:00 Dose: 250 mg - Labs Labs: 11/18/16 06:16 11/18/16 06:16 PT 11.5 SECONDS (9.7-12.2) 11/16/16 06:08 INR 1.0 11/16/16 06:08 APTT 31 SECONDS (21-34) 11/16/16 06:08 - Constitutional Appears: Well, Non-toxic, No Acute Distress - Head Exam Head Exam: ATRAUMATIC - ENT Exam Additional comments: ng tube - Respiratory Exam Respiratory Exam: Rhonchi, NORMAL BREATHING PATTERN. absent: Clear to Ausculation Bilateral - Cardiovascular Exam Cardiovascular Exam: REGULAR RHYTHM, +S1, +S2 - GI/Abdominal Exam GI & Abdominal Exam: Soft, Normal Bowel Sounds, Organomegaly. absent: Tenderness Additional comments: obese - Neurological Exam Neurological Exam: Alert, Awake. absent: Oriented x3 Assessment and Plan - Assessment and Plan (Free Text) Assessment: 61 F PMHx DMII, HTN, CKD, COPD brought in from senior care for AMS and vomiting Plan: Neuro -Alert and responsive on low sedation oriented x 1 confused -Diprivan gtt -CT head: no change from 06/26/16; small vessel ischemic change in deep white matter; 3mm lacunar infarct in R basal ganglia; no change; b/l mastoid air cell opacification -no acute issues HEENT -Hx of glaucoma -Dorzolamide bid Cardiovascular -Hx CHF Diastolic -Echo (10/02/16): left ventricle systolic function is normal, EF: 65-70%, no aortic regurgitation is present, mitral regurgitation is mild, mild trciuspid regurgitation, mild pulmonary hypertension, mild pulmonic valvular regurgitation -Lipid panel WNL -ASA 81mg ng daily -Crestor 10mg po hs -Coreg 12.5mg po q12 Respiratory dx: PNEUMONIA Klebsiella -Extubated this AM- tolerating ventimask -CXR 11/17: prominent bibasilar airspace opacities w/ b/l pleural effusions. Cardiomegaly; Degenerative changes in spine and shoulders -Trach asp: Klebsiella pneumoniae -Duoneb 3ml inh q8 -Solumedrol 40mg ivp q12 -Tigecycline 50mg ivpb q12 -Pulm Dr Quach consulted GI dx: Diarrhea -some diarrhea -Florastor 250mg po bid -C Diff negative -negative ova and parasite Renal dx: Esrd on HD -ESRD on HD TTS -Nephrology Dr Saeed ID -Trach asp: Klebsiella pna -Blood culture negative -negative MRSA in nares -Urine culture negative -Tigecycline 50mg ivpb q12 -ID Dr Anne following Endo: DM very well controlled or currently a1c is 5. -HgbA1c 5 -Accucheck q6H -RISS q6 -Neurontin 100mg po tid Heme -no acute issues -H&H stable MSK -b/l AKA -no acute issues DVT ppx: Heparin 5000u sc q12 [facility] ppx: Pepcid 20mg ivp daily Code status: full code
[2016-11-18] MEDS: (Lantus) Insulin Glargine, Recombinant SC SCH (21:39)
[2016-11-19] MEDS: (Novolin R) Insulin Human Regular 100 units/ml vial SC SCH ×3 (06:21→18:04)
[2016-11-19 06:26] LABS: ALBUMIN 2.5 g/dL (3.5-5.0); BASO % 0.3 % (0.0-2.0); HEMOGLOBIN 11.8 g/dL (11.0-16.0); LYMPH # 0.4 K/uL (1.0-4.3); LYMPH % 3.4 % (20.0-40.0); MEAN CELL VOLUME 89.7 fL (81.0-99.0); MEAN CORPUSCULAR HEMOGLOBIN 28.6 pg (27.0-31.0); MEAN CORPUSCULAR HGB CONC 31.9 g/dL (33.0-37.0); MEAN PLATELET VOLUME 11.8 fL (7.2-11.7); MONO # 0.6 K/uL (0.0-0.8); MONO % 5.6 % (0.0-10.0); NEUT # 9.6 K/uL (1.8-7.0); NEUT % 90.7 % (50.0-75.0); NRBC % 0.1 % (0.0-2.0); PLATELET COUNT 120 K/uL (130-400); RBC 4.12 Mil/uL (3.80-5.20); RED CELL DISTRIBUTION WIDTH 17.4 % (11.5-14.5); WHITE BLOOD COUNT 10.6 K/uL (4.8-10.8)
[2016-11-19 06:29] LABS: CALCIUM 7.7 mg/dl (8.6-10.4); MAGNESIUM 1.9 mg/dL (1.6-2.3)
[2016-11-19 06:40] LABS: ALB/GLOB RATIO 0.9 (1.0-2.1)
--- NOTE | 2016-11-19 07:39 | CP.CCUPN ---
<Kisha Seay - Last Filed: 11/19/16 08:17> CCU Subjective - Physician Review Subjective (Free Text): 11/19/16 08:17 Patient seen and examined. No acute events overnight as per nursing. Extubated and tolerating ventimask. AO x 1. Stable for transfer to [facility] CCU Objective - Vital Signs / Intake & Output Vital Signs (Last 4 hours): Vital Signs Temp Pulse Resp BP Pulse Ox 11/19/16 07:00 104 H 22 95 11/19/16 06:53 103 H 28 H 165/60 H 98 11/19/16 06:29 104 H 13 149/128 H 96 11/19/16 06:00 102 H 15 100 11/19/16 05:29 102 H 11 L 148/97 H 11/19/16 05:00 102 H 15 88 L 11/19/16 04:44 99 H 17 145/89 99 11/19/16 04:30 106 H 11 L 163/137 H 100 11/19/16 04:00 99.5 F 102 H 24 100 11/19/16 03:49 97 H 22 159/49 H 99 Intake and Output (Last 8hrs): Intake & Output 11/18/16 11/19/16 11/19/16 22:59 06:59 14:59 Intake Total 240 280 35 Output Total 60 325 30 Balance 180 -45 5 Weight 200 lb Intake: Intake, IV Amount 100 Left PICC 100 Tube Feeding 140 280 35 Output: Urine 60 175 30 2-way Urethral 60 175 30 Stool 150 - Physical Exam Head: Positive for: Atraumatic, Normocephalic Pupils: Positive for: PERRL Extroacular Muscles: Positive for: EOMI Conjunctiva: Positive for: Normal. Negative for: Injected, Icteric Mouth: Positive for: Moist Mucous Membranes Respiratory/Chest: Negative for: Respiratory Distress, Accessory Muscle Use, Rales, Retracting, Rhonchi Cardiovascular: Positive for: Regular Rate and Rhythm, Normal S1, S2 Abdomen: Positive for: Normal Bowel Sounds. Negative for: Tenderness Lower Extremity: Positive for: Other (b/l AKA). Negative for: Normal Inspection Skin: Positive for: Warm, Dry, Normal Color Psychiatric: Positive for: Alert. Negative for: Oriented x 3 - Medications Active Medications: Active Medications Generic Name Dose Route Start Last Admin Trade Name Freq PRN Reason Stop Dose Admin Albuterol/Ipratropium 3 ml 11/16/16 08:45 11/18/16 23:38 Duoneb 3 Mg/0.5 Mg (3 Ml) Ud INH 3 ml RQ8 ELIZABETH Administration Aspirin 81 mg 11/16/16 10:15 11/18/16 12:01 Aspirin Chewable NG 81 mg DAILY ELIZABETH Administration Carvedilol 12.5 mg 11/16/16 22:00 11/18/16 21:38 Coreg PO 12.5 mg Q12 ELIZABETH Administration Dorzolamide HCl 0 ml 11/16/16 10:00 11/18/16 17:02 Trusopt OU 1 drop BID ELIZABETH Administration Famotidine 20 mg 11/17/16 10:00 11/18/16 12:10 Pepcid IVP 20 mg DAILY ELIZABETH Administration Gabapentin 100 mg 11/16/16 10:00 11/18/16 17:02 Neurontin PO 100 mg TID ELIZABETH Administration Heparin Sodium (Porcine) 5,000 units 11/15/16 10:00 11/18/16 21:38 Heparin SC 5,000 units Q12 ELIZABETH Administration Tigecycline 50 mg/ Sodium 100 mls @ 100 mls/hr 11/19/16 10:00 Chloride IVPB Q12H ELIZABETH Insulin Glargine 10 unit 11/18/16 22:00 11/18/16 21:39 Lantus SC 10 units HS ELIZABETH Administration Insulin Human Regular 0 unit 11/15/16 06:00 11/19/16 06:21 Novolin R SC 3 unit Q6H ELIZABETH Administration Protocol Methylprednisolone 40 mg 11/16/16 10:00 11/18/16 21:38 Solu-Medrol IVP 40 mg Q12 ELIZABETH Administration Rosuvastatin Calcium 10 mg 11/16/16 22:00 11/18/16 21:38 Crestor PO 10 mg HS ELIZABETH Administration Saccharomyces Boulardii 250 mg 11/16/16 10:00 11/18/16 17:00 Florastor PO 250 mg BID ELIZABETH Administration - Patient Studies Lab Studies: Microbiology Studies 11/18/16 14:00 Gram Stain - Final Trachasp 11/16/16 Unknown Stool Culture - Final Stool NO SALMONELLA, SHIGELLA OR CAMPYLOBACTER ISOLATED. Ova and Parasite Concentrate Exam - Final 11/16/16 08:28 Blood Culture - Preliminary Blood-Venous NO GROWTH AFTER 48 HOURS 11/16/16 08:28 Gram Stain - Final Trachasp Sputum Culture - Preliminary Klebsiella Pneumoniae Lab Studies 11/19/16 11/19/16 11/19/16 Range/Units 06:03 06:03 06:00 WBC 10.6 D (4.8-10.8) K/uL RBC 4.12 (3.80-5.20) Mil/uL Hgb 11.8 (11.0-16.0) g/dL Hct 37.0 (34.0-47.0) % MCV 89.7 (81.0-99.0) fL MCH 28.6 (27.0-31.0) pg MCHC 31.9 L (33.0-37.0) g/dL RDW 17.4 H (11.5-14.5) % Plt Count 120 L (130-400) K/uL MPV 11.8 H (7.2-11.7) fL Neut % (Auto) 90.7 H (50.0-75.0) % Lymph % (Auto) 3.4 L (20.0-40.0) % Alexander % (Auto) 5.6 (0.0-10.0) % Eos % (Auto) 0.0 (0.0-4.0) % Baso % (Auto) 0.3 (0.0-2.0) % Neut # 9.6 H (1.8-7.0) K/uL Lymph # 0.4 L (1.0-4.3) K/uL Alexander # 0.6 (0.0-0.8) K/uL Eos # 0.0 (0.0-0.7) K/uL Baso # 0.0 (0.0-0.2) K/uL Neutrophils % (Manual) (50-75) % Lymphocytes % (Manual) (20-40) % Monocytes % (Manual) (0-10) % Platelet Estimate (NORMAL) Hypochromasia (manual) Poikilocytosis (manual Anisocytosis (manual) Brenda Cells Sodium 134 (132-148) mmol/L Potassium 3.4 L (3.6-5.2) mmol/L Chloride 98 (98-107) mmol/L Carbon Dioxide 29 (22-30) mmol/L Anion Gap 10 (10-20) BUN 34 H (7-17) mg/dL Creatinine 1.7 H (0.7-1.2) MG/DL Est GFR ( Amer) 37 Est GFR (Non-Af Amer) 30 POC Glucose (mg/dL) 258 H (65-110) mg/dL Random Glucose 265 H (65-105) mg/dL Calcium 7.7 L (8.6-10.4) mg/dl Phosphorus 2.7 (2.5-4.5) mg/dL Magnesium 1.9 (1.6-2.3) mg/dL Total Bilirubin 0.7 (0.2-1.3) mg/dL AST 22 (14-36) U/L ALT 19 (9-52) U/L Alkaline Phosphatase 149 H D (38-126) U/L Total Protein 5.4 L (6.3-8.3) g/dL Albumin 2.5 L (3.5-5.0) g/dL Globulin 2.9 (2.2-3.9) gm/dL Albumin/Globulin Ratio 0.9 L (1.0-2.1) 11/18/16 11/18/16 11/18/16 Range/Units 23:40 17:46 11:32 WBC (4.8-10.8) K/uL RBC (3.80-5.20) Mil/uL Hgb (11.0-16.0) g/dL Hct (34.0-47.0) % MCV (81.0-99.0) fL MCH (27.0-31.0) pg MCHC (33.0-37.0) g/dL RDW (11.5-14.5) % Plt Count (130-400) K/uL MPV (7.2-11.7) fL Neut % (Auto) (50.0-75.0) % Lymph % (Auto) (20.0-40.0) % Alexander % (Auto) (0.0-10.0) % Eos % (Auto) (0.0-4.0) % Baso % (Auto) (0.0-2.0) % Neut # (1.8-7.0) K/uL Lymph # (1.0-4.3) K/uL Alexander # (0.0-0.8) K/uL Eos # (0.0-0.7) K/uL Baso # (0.0-0.2) K/uL Neutrophils % (Manual) (50-75) % Lymphocytes % (Manual) (20-40) % Monocytes % (Manual) (0-10) % Platelet Estimate (NORMAL) Hypochromasia (manual) Poikilocytosis (manual Anisocytosis (manual) Juliette Cells Sodium (132-148) mmol/L Potassium (3.6-5.2) mmol/L Chloride (98-107) mmol/L Carbon Dioxide (22-30) mmol/L Anion Gap (10-20) BUN (7-17) mg/dL Creatinine (0.7-1.2) MG/DL Est GFR ( Amer) Est GFR (Non-Af Amer) POC Glucose (mg/dL) 204 H 215 H 244 H (65-110) mg/dL Random Glucose (65-105) mg/dL Calcium (8.6-10.4) mg/dl Phosphorus (2.5-4.5) mg/dL Magnesium (1.6-2.3) mg/dL Total Bilirubin (0.2-1.3) mg/dL AST (14-36) U/L ALT (9-52) U/L Alkaline Phosphatase (38-126) U/L Total Protein (6.3-8.3) g/dL Albumin (3.5-5.0) g/dL Globulin (2.2-3.9) gm/dL Albumin/Globulin Ratio (1.0-2.1) 11/18/16 11/18/16 Range/Units 07:38 06:16 WBC (4.8-10.8) K/uL RBC (3.80-5.20) Mil/uL Hgb (11.0-16.0) g/dL Hct (34.0-47.0) % MCV (81.0-99.0) fL MCH (27.0-31.0) pg MCHC (33.0-37.0) g/dL RDW (11.5-14.5) % Plt Count (130-400) K/uL MPV (7.2-11.7) fL Neut % (Auto) (50.0-75.0) % Lymph % (Auto) (20.0-40.0) % Alexander % (Auto) (0.0-10.0) % Eos % (Auto) (0.0-4.0) % Baso % (Auto) (0.0-2.0) % Neut # (1.8-7.0) K/uL Lymph # (1.0-4.3) K/uL Alexander # (0.0-0.8) K/uL Eos # (0.0-0.7) K/uL Baso # (0.0-0.2) K/uL Neutrophils % (Manual) 90 H (50-75) % Lymphocytes % (Manual) 5 L (20-40) % Monocytes % (Manual) 5 (0-10) % Platelet Estimate Slightly decreased L (NORMAL) Hypochromasia (manual) Slight Poikilocytosis (manual Slight Anisocytosis (manual) Slight Brenda Cells Slight Sodium (132-148) mmol/L Potassium (3.6-5.2) mmol/L Chloride (98-107) mmol/L Carbon Dioxide (22-30) mmol/L Anion Gap (10-20) BUN (7-17) mg/dL Creatinine (0.7-1.2) MG/DL Est GFR ( Amer) Est GFR (Non-Af Amer) POC Glucose (mg/dL) 449 H* (65-110) mg/dL Random Glucose (65-105) mg/dL Calcium (8.6-10.4) mg/dl Phosphorus (2.5-4.5) mg/dL Magnesium (1.6-2.3) mg/dL Total Bilirubin (0.2-1.3) mg/dL AST (14-36) U/L ALT (9-52) U/L Alkaline Phosphatase (38-126) U/L Total Protein (6.3-8.3) g/dL Albumin (3.5-5.0) g/dL Globulin (2.2-3.9) gm/dL Albumin/Globulin Ratio (1.0-2.1) Laboratory Results - last 24 hr 11/18/16 11/18/16 11/18/16 06:16 07:38 11:32 WBC RBC Hgb Hct MCV MCH MCHC RDW Plt Count MPV Neut % (Auto) Lymph % (Auto) Alexander % (Auto) Eos % (Auto) Baso % (Auto) Neut # Lymph # Alexander # Eos # Baso # Neutrophils % (Manual) 90 H Lymphocytes % (Manual) 5 L Monocytes % (Manual) 5 Platelet Estimate Slightly decreased L Hypochromasia (manual) Slight Poikilocytosis (manual Slight Anisocytosis (manual) Slight Juliette Cells Slight Sodium Potassium Chloride Carbon Dioxide Anion Gap BUN Creatinine Est GFR ( Amer) Est GFR (Non-Af Amer) POC Glucose (mg/dL) 449 H* 244 H Random Glucose Calcium Phosphorus Magnesium Total Bilirubin AST ALT Alkaline Phosphatase Total Protein Albumin Globulin Albumin/Globulin Ratio 11/18/16 11/18/16 11/19/16 17:46 23:40 06:00 WBC RBC Hgb Hct MCV MCH MCHC RDW Plt Count MPV Neut % (Auto) Lymph % (Auto) Alexander % (Auto) Eos % (Auto) Baso % (Auto) Neut # Lymph # Alexander # Eos # Baso # Neutrophils % (Manual) Lymphocytes % (Manual) Monocytes % (Manual) Platelet Estimate Hypochromasia (manual) Poikilocytosis (manual Anisocytosis (manual) Juliette Cells Sodium Potassium Chloride Carbon Dioxide Anion Gap BUN Creatinine Est GFR ( Amer) Est GFR (Non-Af Amer) POC Glucose (mg/dL) 215 H 204 H 258 H Random Glucose Calcium Phosphorus Magnesium Total Bilirubin AST ALT Alkaline Phosphatase Total Protein Albumin Globulin Albumin/Globulin Ratio 11/19/16 11/19/16 06:03 06:03 WBC 10.6 D RBC 4.12 Hgb 11.8 Hct 37.0 MCV 89.7 MCH 28.6 MCHC 31.9 L RDW 17.4 H Plt Count 120 L MPV 11.8 H Neut % (Auto) 90.7 H Lymph % (Auto) 3.4 L Alexander % (Auto) 5.6 Eos % (Auto) 0.0 Baso % (Auto) 0.3 Neut # 9.6 H Lymph # 0.4 L Alexander # 0.6 Eos # 0.0 Baso # 0.0 Neutrophils % (Manual) Lymphocytes % (Manual) Monocytes % (Manual) Platelet Estimate Hypochromasia (manual) Poikilocytosis (manual Anisocytosis (manual) Juliette Cells Sodium 134 Potassium 3.4 L Chloride 98 Carbon Dioxide 29 Anion Gap 10 BUN 34 H Creatinine 1.7 H Est GFR ( Amer) 37 Est GFR (Non-Af Amer) 30 POC Glucose (mg/dL) Random Glucose 265 H Calcium 7.7 L Phosphorus 2.7 Magnesium 1.9 Total Bilirubin 0.7 AST 22 ALT 19 Alkaline Phosphatase 149 H D Total Protein 5.4 L Albumin 2.5 L Globulin 2.9 Albumin/Globulin Ratio 0.9 L Fingerstick Blood Sugar Results: 258 Review of Systems - Review of Systems Systems not reviewed;Unavailable: Altered Mental Status Assessment/Plan - Assessment and Plan (Free Text) Assessment: 61 F PMHx DMII, HTN, CKD, COPD brought in from senior care for AMS and vomiting Plan: Neuro -Alert and responsive on low sedation -Diprivan gtt -CT head: no change from 06/26/16; small vessel ischemic change in deep white matter; 3mm lacunar infarct in R basal ganglia; no change; b/l mastoid air cell opacification -no acute issues HEENT -Hx of glaucoma -Dorzolamide bid Cardiovascular -Hx CHF -Echo (10/02/16): left ventricle systolic function is normal, EF: 65-70%, no aortic regurgitation is present, mitral regurgitation is mild, mild trciuspid regurgitation, mild pulmonary hypertension, mild pulmonic valvular regurgitation -Lipid panel WNL -ASA 81mg ng daily -Crestor 10mg po hs -Coreg 12.5mg po q12 Respiratory -Extubated- tolerating ventimask -CXR 11/17: prominent bibasilar airspace opacities w/ b/l pleural effusions. Cardiomegaly; Degenerative changes in spine and shoulders -Trach asp: Klebsiella pneumoniae -Duoneb 3ml inh q8 -Solumedrol 40mg ivp q12 -Tigecycline 50mg ivpb q12 -Pulm Dr Quach consulted GI -some diarrhea -Florastor 250mg po bid -C Diff negative -negative ova and parasite Renal -ESRD on HD TTS -Nephrology Dr Saeed ID -Trach asp: Klebsiella pna -Blood culture negative -negative MRSA in nares -Urine culture negative -Tigecycline 50mg ivpb q12 -ID Dr Anne following Endo -HgbA1c 5 -Accucheck q6H -RISS q6 -Neurontin 100mg po tid Heme -no acute issues -H&H stable MSK -b/l AKA -no acute issues DVT ppx: Heparin 5000u sc q12 GI ppx: Pepcid 20mg ivp daily Code status: full code Dispo: stable for transfer to [facility] Case discussed with Dr Main Seay PGY2 <Lai Quach - Last Filed: 11/19/16 16:13> CCU Objective - Vital Signs / Intake & Output Vital Signs (Last 4 hours): Vital Signs Pulse Resp BP Pulse Ox 11/19/16 15:03 106 H 15 137/100 H 100 11/19/16 15:00 102 H 19 99 11/19/16 14:19 98 H 19 172/145 H 99 11/19/16 14:00 97 H 14 93 L 11/19/16 13:29 92 H 11 L 189/118 H 100 11/19/16 13:12 92 H 17 185/72 H 99 11/19/16 13:08 93 H 20 171/153 H 100 11/19/16 13:00 94 H 30 H 100 11/19/16 12:32 85 26 H 194/46 H 100 Intake and Output (Last 8hrs): Intake & Output 11/19/16 11/19/16 11/19/16 06:59 14:59 22:59 Intake Total 280 480 35 Output Total 325 150 Balance -45 330 35 Intake: Intake, IV Amount 200 Left PICC 200 Tube Feeding 280 280 35 Output: Urine 175 150 2-way Urethral 175 150 Stool 150 - Medications Active Medications: Active Medications Generic Name Dose Route Start Last Admin Trade Name Ivanq PRN Reason Stop Dose Admin Albuterol/Ipratropium 3 ml 11/16/16 08:45 11/19/16 15:57 Duoneb 3 Mg/0.5 Mg (3 Ml) Ud INH 3 ml RQ8 ELIZABETH Administration Aspirin 81 mg 11/16/16 10:15 11/19/16 09:47 Aspirin Chewable NG 81 mg DAILY ELIZABETH Administration Carvedilol 12.5 mg 11/16/16 22:00 11/19/16 09:47 Coreg PO 12.5 mg Q12 ELIZABETH Administration Dorzolamide HCl 0 ml 11/16/16 10:00 11/19/16 09:47 Trusopt OU 1 drop BID ELIZABETH Administration Famotidine 20 mg 11/17/16 10:00 11/19/16 09:46 Pepcid IVP 20 mg DAILY ELIZABETH Administration Gabapentin 100 mg 11/16/16 10:00 11/19/16 14:12 Neurontin PO 100 mg TID ELIZABETH Administration Hydralazine HCl 10 mg 11/19/16 13:44 11/19/16 14:07 Apresoline IVP 10 mg Q6H PRN Administration SBP above 180 mm Hg Tigecycline 50 mg/ Sodium 100 mls @ 100 mls/hr 11/19/16 10:00 11/19/16 09:49 Chloride IVPB 100 mls/hr Q12H ELIZABETH Administration Insulin Glargine 10 unit 11/18/16 22:00 11/18/16 21:39 Lantus SC 10 units HS ELIZABETH Administration Insulin Human Regular 0 unit 11/15/16 06:00 11/19/16 12:12 Novolin R SC Not Given Q6H ELIZABETH Protocol Methylprednisolone 40 mg 11/16/16 10:00 11/19/16 09:46 Solu-Medrol IVP 40 mg Q12 ELIZABETH Administration Rosuvastatin Calcium 10 mg 11/16/16 22:00 11/18/16 21:38 Crestor PO 10 mg HS ELIZABETH Administration Saccharomyces Boulardii 250 mg 11/16/16 10:00 11/19/16 09:47 Florastor PO 250 mg BID ELIZABETH Administration - Patient Studies Lab Studies: Microbiology Studies 11/16/16 08:28 Blood Culture - Preliminary Blood-Venous NO GROWTH AFTER 3 DAYS 11/18/16 14:00 Gram Stain - Final Trachasp Sputum Culture - Preliminary Gram Negative Abdullahi 11/16/16 08:28 Gram Stain - Final Trachasp Sputum Culture - Final Klebsiella Pneumoniae 11/16/16 Unknown Stool Culture - Final Stool NO SALMONELLA, SHIGELLA OR CAMPYLOBACTER ISOLATED. Ova and Parasite Concentrate Exam - Final Lab Studies 11/19/16 11/19/16 11/19/16 Range/Units 12:00 06:03 06:03 WBC 10.6 D (4.8-10.8) K/uL RBC 4.12 (3.80-5.20) Mil/uL Hgb 11.8 (11.0-16.0) g/dL Hct 37.0 (34.0-47.0) % MCV 89.7 (81.0-99.0) fL MCH 28.6 (27.0-31.0) pg MCHC 31.9 L (33.0-37.0) g/dL RDW 17.4 H (11.5-14.5) % Plt Count 120 L (130-400) K/uL MPV 11.8 H (7.2-11.7) fL Neut % (Auto) 90.7 H (50.0-75.0) % Lymph % (Auto) 3.4 L (20.0-40.0) % Alexander % (Auto) 5.6 (0.0-10.0) % Eos % (Auto) 0.0 (0.0-4.0) % Baso % (Auto) 0.3 (0.0-2.0) % Neut # 9.6 H (1.8-7.0) K/uL Lymph # 0.4 L (1.0-4.3) K/uL Alexander # 0.6 (0.0-0.8) K/uL Eos # 0.0 (0.0-0.7) K/uL Baso # 0.0 (0.0-0.2) K/uL Neutrophils % (Manual) 90 H (50-75) % Band Neutrophils % 2 (0-2) % Lymphocytes % (Manual) 4 L (20-40) % Monocytes % (Manual) 4 (0-10) % Platelet Estimate Slightly decreased L (NORMAL) Large Platelets Present Anisocytosis (manual) Slight Sodium 134 (132-148) mmol/L Potassium 3.4 L (3.6-5.2) mmol/L Chloride 98 (98-107) mmol/L Carbon Dioxide 29 (22-30) mmol/L Anion Gap 10 (10-20) BUN 34 H (7-17) mg/dL Creatinine 1.7 H (0.7-1.2) MG/DL Est GFR ( Amer) 37 Est GFR (Non-Af Amer) 30 POC Glucose (mg/dL) 132 H (65-110) mg/dL Random Glucose 265 H (65-105) mg/dL Calcium 7.7 L (8.6-10.4) mg/dl Phosphorus 2.7 (2.5-4.5) mg/dL Magnesium 1.9 (1.6-2.3) mg/dL Total Bilirubin 0.7 (0.2-1.3) mg/dL AST 22 (14-36) U/L ALT 19 (9-52) U/L Alkaline Phosphatase 149 H D (38-126) U/L Total Protein 5.4 L (6.3-8.3) g/dL Albumin 2.5 L (3.5-5.0) g/dL Globulin 2.9 (2.2-3.9) gm/dL Albumin/Globulin Ratio 0.9 L (1.0-2.1) 11/19/16 11/18/16 11/18/16 Range/Units 06:00 23:40 17:46 WBC (4.8-10.8) K/uL RBC (3.80-5.20) Mil/uL Hgb (11.0-16.0) g/dL Hct (34.0-47.0) % MCV (81.0-99.0) fL MCH (27.0-31.0) pg MCHC (33.0-37.0) g/dL RDW (11.5-14.5) % Plt Count (130-400) K/uL MPV (7.2-11.7) fL Neut % (Auto) (50.0-75.0) % Lymph % (Auto) (20.0-40.0) % Alexander % (Auto) (0.0-10.0) % Eos % (Auto) (0.0-4.0) % Baso % (Auto) (0.0-2.0) % Neut # (1.8-7.0) K/uL Lymph # (1.0-4.3) K/uL Alexander # (0.0-0.8) K/uL Eos # (0.0-0.7) K/uL Baso # (0.0-0.2) K/uL Neutrophils % (Manual) (50-75) % Band Neutrophils % (0-2) % Lymphocytes % (Manual) (20-40) % Monocytes % (Manual) (0-10) % Platelet Estimate (NORMAL) Large Platelets Anisocytosis (manual) Sodium (132-148) mmol/L Potassium (3.6-5.2) mmol/L Chloride (98-107) mmol/L Carbon Dioxide (22-30) mmol/L Anion Gap (10-20) BUN (7-17) mg/dL Creatinine (0.7-1.2) MG/DL Est GFR ( Amer) Est GFR (Non-Af Amer) POC Glucose (mg/dL) 258 H 204 H 215 H (65-110) mg/dL Random Glucose (65-105) mg/dL Calcium (8.6-10.4) mg/dl Phosphorus (2.5-4.5) mg/dL Magnesium (1.6-2.3) mg/dL Total Bilirubin (0.2-1.3) mg/dL AST (14-36) U/L ALT (9-52) U/L Alkaline Phosphatase (38-126) U/L Total Protein (6.3-8.3) g/dL Albumin (3.5-5.0) g/dL Globulin (2.2-3.9) gm/dL Albumin/Globulin Ratio (1.0-2.1) Laboratory Results - last 24 hr 11/18/16 11/18/16 11/19/16 17:46 23:40 06:00 WBC RBC Hgb Hct MCV MCH MCHC RDW Plt Count MPV Neut % (Auto) Lymph % (Auto) Alexander % (Auto) Eos % (Auto) Baso % (Auto) Neut # Lymph # Alexander # Eos # Baso # Neutrophils % (Manual) Band Neutrophils % Lymphocytes % (Manual) Monocytes % (Manual) Platelet Estimate Large Platelets Anisocytosis (manual) Sodium Potassium Chloride Carbon Dioxide Anion Gap BUN Creatinine Est GFR ( Amer) Est GFR (Non-Af Amer) POC Glucose (mg/dL) 215 H 204 H 258 H Random Glucose Calcium Phosphorus Magnesium Total Bilirubin AST ALT Alkaline Phosphatase Total Protein Albumin Globulin Albumin/Globulin Ratio 11/19/16 11/19/16 11/19/16 06:03 06:03 12:00 WBC 10.6 D RBC 4.12 Hgb 11.8 Hct 37.0 MCV 89.7 MCH 28.6 MCHC 31.9 L RDW 17.4 H Plt Count 120 L MPV 11.8 H Neut % (Auto) 90.7 H Lymph % (Auto) 3.4 L Alexander % (Auto) 5.6 Eos % (Auto) 0.0 Baso % (Auto) 0.3 Neut # 9.6 H Lymph # 0.4 L Alexander # 0.6 Eos # 0.0 Baso # 0.0 Neutrophils % (Manual) 90 H Band Neutrophils % 2 Lymphocytes % (Manual) 4 L Monocytes % (Manual) 4 Platelet Estimate Slightly decreased L Large Platelets Present Anisocytosis (manual) Slight Sodium 134 Potassium 3.4 L Chloride 98 Carbon Dioxide 29 Anion Gap 10 BUN 34 H Creatinine 1.7 H Est GFR ( Amer) 37 Est GFR (Non-Af Amer) 30 POC Glucose (mg/dL) 132 H Random Glucose 265 H Calcium 7.7 L Phosphorus 2.7 Magnesium 1.9 Total Bilirubin 0.7 AST 22 ALT 19 Alkaline Phosphatase 149 H D Total Protein 5.4 L Albumin 2.5 L Globulin 2.9 Albumin/Globulin Ratio 0.9 L Assessment/Plan (1) Acute respiratory failure Current Visit: Yes Status: Acute (2) Hypokalemia Current Visit: Yes Status: Acute (3) COPD (chronic obstructive pulmonary disease) Current Visit: Yes Status: Chronic (4) ESRD (end stage renal disease) on dialysis Current Visit: Yes Status: Chronic Attending/Attestation - Attestation I have personally seen and examined this patient.: Yes I have fully participated in the care of the patient.: Yes I have reviewed all pertinent clinical information: Yes Notes (Text): 11/19/16 16:12 patient seen and examined. Case discussed with house staff in the morning rounds. Extubated yesterday and in no respiratory distress Continue present treatmen, hemodialysis in transfer to telemetry
[2016-11-19] MEDS: Albuterol-Ipratrop 3 mg / 0.5 (3 ml) UD INH SCH ×2 (07:48→15:57)
[2016-11-19 08:31] LABS: ANISOCYTOSIS SLIGHT; BANDS 2 % (0-2); LARGE PLATELETS PRESENT; LYMPHOCYTE 4 % (20-40); MONOCYTE 4 % (0-10); NEUTROPHIL 90 % (50-75); PLATELET ESTIMATE SLIGHTLY DECREASED (NORMAL); TOTAL CELLS COUNTED 100
[2016-11-19] MEDS: MethylPREDNISolone 40 mg Vial IVP SCH ×2 (09:46→21:27)
[2016-11-19] MEDS: Saccharomyces Boulardi 250 mg Cap PO SCH ×2 (09:47→18:07)
[2016-11-19] MEDS: Dorzolamide 2% Opht Sol 10ml OU SCH ×2 (09:47→18:07)
--- NOTE | 2016-11-19 09:54 | CP.PCM.PN ---
Subjective - Date & Time of Evaluation Date of Evaluation: 11/19/16 Time of Evaluation: 09:00 - Subjective Subjective: Medical Attending Note: Follow-up: Acute Respiratory Failure Patient seen and examined. Patient is status post extubation as of yesterday. Patient is speaking softly. Patient denies pain. Patient denies diarrhea. Objective - Vital Signs/Intake and Output Vital Signs (last 24 hours): Temp Pulse Resp BP Pulse Ox 99.9 F H 108 H 17 152/68 H 100 11/19/16 08:00 11/19/16 09:29 11/19/16 09:29 11/19/16 09:47 11/19/16 09:29 Intake and Output: 11/19/16 11/19/16 06:59 18:59 Intake Total 385 105 Output Total 355 30 Balance 30 75 - Medications Medications: Current Medications Albuterol/Ipratropium (Duoneb 3 Mg/0.5 Mg (3 Ml) Ud) 3 ml INH RQ8 [facility] Last Admin: 11/19/16 07:48 Dose: 3 ml Aspirin (Aspirin Chewable) 81 mg NG DAILY [facility] Last Admin: 11/19/16 09:47 Dose: 81 mg Carvedilol (Coreg) 12.5 mg PO Q12 [facility] Last Admin: 11/19/16 09:47 Dose: 12.5 mg Dorzolamide HCl (Trusopt) 0 ml OU BID [facility] Last Admin: 11/19/16 09:47 Dose: 1 drop Famotidine (Pepcid) 20 mg IVP DAILY [facility] Last Admin: 11/19/16 09:46 Dose: 20 mg Gabapentin (Neurontin) 100 mg PO TID [facility] Last Admin: 11/19/16 09:47 Dose: 100 mg Heparin Sodium (Porcine) (Heparin) 5,000 units SC Q12 [facility] Last Admin: 11/19/16 09:46 Dose: 5,000 units Tigecycline 50 mg/ Sodium (Chloride) 100 mls @ 100 mls/hr IVPB Q12H [facility] Last Admin: 11/19/16 09:49 Dose: 100 mls/hr Potassium Chloride (Potassium Chloride 20 Meq/100 Ml) 20 meq in 100 mls @ 50 mls/hr IVPB ONCE ONE Stop: 11/19/16 09:59 Last Admin: 11/19/16 09:48 Dose: 50 mls/hr Insulin Glargine (Lantus) 10 unit SC HS [facility] Last Admin: 11/18/16 21:39 Dose: 10 units Insulin Human Regular (Novolin R) 0 unit SC Q6H [facility] PRN Reason: Protocol Last Admin: 11/19/16 06:21 Dose: 3 unit Methylprednisolone (Solu-Medrol) 40 mg IVP Q12 [facility] Last Admin: 11/19/16 09:46 Dose: 40 mg Rosuvastatin Calcium (Crestor) 10 mg PO HS [facility] Last Admin: 11/18/16 21:38 Dose: 10 mg Saccharomyces Boulardii (Florastor) 250 mg PO BID [facility] Last Admin: 11/19/16 09:47 Dose: 250 mg - Labs Labs: 11/19/16 06:03 11/19/16 06:03 PT 11.5 SECONDS (9.7-12.2) 11/16/16 06:08 INR 1.0 11/16/16 06:08 APTT 31 SECONDS (21-34) 11/16/16 06:08 - Constitutional Appears: Non-toxic, No Acute Distress - Head Exam Head Exam: NORMAL INSPECTION - Eye Exam Eye Exam: EOMI - ENT Exam ENT Exam: Mucous Membranes Dry - Respiratory Exam Respiratory Exam: Decreased Breath Sounds, Rales, NORMAL BREATHING PATTERN - Cardiovascular Exam Cardiovascular Exam: REGULAR RHYTHM, +S1, +S2 - GI/Abdominal Exam GI & Abdominal Exam: Soft, Normal Bowel Sounds. absent: Distended, Guarding, Rigid, Tenderness, Rebound - Extremities Exam Additional comments: b/l AKAs - Back Exam Back Exam: absent: CVA tenderness (L), CVA tenderness (R) - Neurological Exam Neurological Exam: Alert, Awake - Skin Skin Exam: Dry, Normal Color, Warm Assessment and Plan (1) Acute respiratory failure Status: Acute (2) COPD (chronic obstructive pulmonary disease) Status: Chronic (3) Hyperlipidemia Status: Chronic (4) Congestive heart failure Status: Chronic (5) Diabetes mellitus Status: Chronic (6) ESRD (end stage renal disease) on dialysis Status: Chronic (7) HTN (hypertension) Status: Chronic (8) Hypokalemia Status: Acute (9) Prophylactic measure Status: Acute - Assessment and Plan (Free Text) Assessment: (1) Acute respiratory failure Assessment & Plan: Intubated in the ED on admission PH: 7.04, CO2: 124 on admission history of COPD Pulmonary consult (Dr. Quach)--->help appreciated Duonebs 3ml INH RQ8 HR Solumedrol 40mg IVP Q 12 hours Extubation 11/18 Chest xray (11/15/16): possible small left pleural effusion. Line and tubes are unchanged Chest Xray 11/16/16): No active disease Pending chest xray today Sputum culture (11/18/16): gram negative ariadne Sputum culture (11/16/16): Klebsiella pneumoniae Infectious disease (Dr. Anne) on board-->help appreciated Tigeyclcine 50mg IV 12 hours (Active since 11/19/16); changed fro,m Maxipime 1 gram IV Q 24hours Status: Acute (2) COPD (chronic obstructive pulmonary disease) Assessment & Plan: Pulmonary Consult (Dr. Quach)-->on board help appreciated Solumdedrol 40mg IV Q 12hours Duonebs 3ml INH RQ8HR Pending chest xray today Sputum culture (11/18/16): gram negative ariadne Sputum culture (11/16/16): Klebsiella pneumoniae Status: Chronic (3) Hyperlipidemia Assessment & Plan: Lipid panel: TG mildly elevated Crestor 10mg POqHS Status: Chronic (4) Congestive heart failure Assessment & Plan: Echocardiogram (10/02/16): left ventricle systolic function is normal, EF: 65-70% , no aortic regurgitation is present, mitral regurgitation is mild, mild trciuspid regurgitation, mild pulmonary hypertension, mild pulmonic valvular regurgitation patient recently started on dialysis about 2 weeks ago Crestor 10mg POqHS Aspirin 81mg PO daily Coreg 12.5mg PO Q12 Status: Chronic (5) Diabetes mellitus Assessment & Plan: Uncontrolled Accuchecks Q6H insulin sliding scale subq6H hgba1c: 5.0 controlled lantus 10 units subqHS Neurotonin 100mg PO tid Status: Chronic (6) ESRD (end stage renal disease) on dialysis Assessment & Plan: Nephrology consult, Dr. Saeed, help appreciated Patient recently started on dialysis about 2 weeks ago at [facility] per review of EMR Dialysis: T/[facility]/Sat Status: Chronic (7) HTN (hypertension) Assessment & Plan: Monitor blood pressure Coreg 12.5mg PO Q12 Status: Chronic (8) Thrombocytopenia Assessment & Plan: d/c heparin 5000 units subq 12 hours-->ordered for heparin induced thrombocytopenia Florastor 250mg PO bid Status: Acute (9) Diarrhea Assessment & Plan: pepcid 20mg IVq daily Blood cultures (11/14/16): no growth X 4 days X2 Urine culture (11/14/16): no growth MRSA (11/15/16): MRSA not detected Blood culture (11/16/16): no growth after 48 houts 11/16/16: No salmonella, shigella, or campylobacter Urine culture: no growth Florastor 250mg PO bid C dif: negative Status: Acute (10) Prophylactic care Assessment & Plan: d/c heparin secondary to thrombocytopenia Pepcid 20mg IV q daily Status: Acute
--- NOTE | 2016-11-19 10:55 | RAD ---
HISTORY: congestion COMPARISON: 11/18/2016 FINDINGS: The right-sided dual lumen central venous catheter terminates in the right atrium. The left PICC line terminates in the SVC. The nasogastric tube terminates in the stomach. LUNGS: Bilateral lower lobe atelectasis/ airspace disease is suspected. There is mild pulmonary venous congestion. PLEURA: There are moderate bilateral pleural effusions, larger on the left. No pneumothorax. CARDIOVASCULAR: Normal. OSSEOUS STRUCTURES: No significant abnormalities. VISUALIZED UPPER ABDOMEN: Normal. OTHER FINDINGS: None. IMPRESSION: Moderate bilateral pleural effusions, larger on the left. Bibasilar atelectasis/pneumonia cannot be excluded.
--- NOTE | 2016-11-19 12:44 | CP.PCM.PN ---
Subjective - Date & Time of Evaluation Date of Evaluation: 11/19/16 Time of Evaluation: 12:44 - Subjective Subjective: pt seen and examined by me, no complaints, s/p extubation, on face mask no chest pain, no nausea, no vomitings, no abd. apin pt is on isolation for Multi drug resistant organism in the sputum, K.pneumonia Objective - Vital Signs/Intake and Output Vital Signs (last 24 hours): Temp Pulse Resp BP Pulse Ox 99.9 F H 88 28 H 121/71 100 11/19/16 08:00 11/19/16 12:00 11/19/16 12:00 11/19/16 11:29 11/19/16 12:00 Intake and Output: 11/19/16 11/19/16 06:59 18:59 Intake Total 385 410 Output Total 355 150 Balance 30 260 - Medications Medications: Current Medications Albuterol/Ipratropium (Duoneb 3 Mg/0.5 Mg (3 Ml) Ud) 3 ml INH RQ8 [facility] Last Admin: 11/19/16 07:48 Dose: 3 ml Aspirin (Aspirin Chewable) 81 mg NG DAILY [facility] Last Admin: 11/19/16 09:47 Dose: 81 mg Carvedilol (Coreg) 12.5 mg PO Q12 [facility] Last Admin: 11/19/16 09:47 Dose: 12.5 mg Dorzolamide HCl (Trusopt) 0 ml OU BID [facility] Last Admin: 11/19/16 09:47 Dose: 1 drop Famotidine (Pepcid) 20 mg IVP DAILY [facility] Last Admin: 11/19/16 09:46 Dose: 20 mg Gabapentin (Neurontin) 100 mg PO TID [facility] Last Admin: 11/19/16 09:47 Dose: 100 mg Tigecycline 50 mg/ Sodium (Chloride) 100 mls @ 100 mls/hr IVPB Q12H [facility] Last Admin: 11/19/16 09:49 Dose: 100 mls/hr Insulin Glargine (Lantus) 10 unit SC HS [facility] Last Admin: 11/18/16 21:39 Dose: 10 units Insulin Human Regular (Novolin R) 0 unit SC Q6H [facility] PRN Reason: Protocol Last Admin: 11/19/16 12:12 Dose: Not Given Methylprednisolone (Solu-Medrol) 40 mg IVP Q12 [facility] Last Admin: 11/19/16 09:46 Dose: 40 mg Rosuvastatin Calcium (Crestor) 10 mg PO HS [facility] Last Admin: 11/18/16 21:38 Dose: 10 mg Saccharomyces Boulardii (Florastor) 250 mg PO BID [facility] Last Admin: 11/19/16 09:47 Dose: 250 mg - Labs Labs: 11/19/16 06:03 11/19/16 06:03 PT 11.5 SECONDS (9.7-12.2) 11/16/16 06:08 INR 1.0 11/16/16 06:08 APTT 31 SECONDS (21-34) 11/16/16 06:08 - Constitutional Appears: Well, Non-toxic, No Acute Distress - Head Exam Head Exam: ATRAUMATIC, NORMAL INSPECTION, NORMOCEPHALIC - Eye Exam Eye Exam: EOMI, PERRL Pupil Exam: NORMAL ACCOMODATION, PERRL - ENT Exam ENT Exam: Mucous Membranes Moist - Neck Exam Neck Exam: Normal Inspection - Respiratory Exam Respiratory Exam: Clear to Ausculation Bilateral, NORMAL BREATHING PATTERN - Cardiovascular Exam Cardiovascular Exam: REGULAR RHYTHM, +S1, +S2 - GI/Abdominal Exam GI & Abdominal Exam: Soft, Normal Bowel Sounds - Rectal Exam Rectal Exam: Deferred - Extremities Exam Additional comments: B/L AKA - Neurological Exam Neurological Exam: Alert, Awake Assessment and Plan - Assessment and Plan (Free Text) Plan: 61 yo Obese HF with pmh/o htn, dm esrd, anemia, chf, copd/ asthma, ,esrd on hd 3 x aweek, resident of [place] was admitted with resp. failure, intubated and admitted to icu, s/p extubation 1. esrd, c/w hd 3 x a week 2. s/p resp. failure 3, r/o pneumonia vs bronchitis sputum c/s positive for MDR k.pneumonia 4. hypokalemia, supplement k+ as needed, to keep arround 4.0
--- NOTE | 2016-11-19 18:42 | CP.PCM.PN ---
Subjective - Date & Time of Evaluation Date of Evaluation: 11/19/16 Time of Evaluation: 07:00 - Subjective Subjective: Patient is status post extubation as of yesterday. Patient is speaking softly. Patient denies pain. Patient denies diarrhea. Objective - Vital Signs/Intake and Output Vital Signs (last 24 hours): Temp Pulse Resp BP Pulse Ox 99.2 F 102 H 12 164/35 H 100 11/19/16 16:00 11/19/16 18:00 11/19/16 18:00 11/19/16 17:47 11/19/16 18:00 Intake and Output: 11/19/16 11/19/16 06:59 18:59 Intake Total 385 620 Output Total 355 150 Balance 30 470 - Medications Medications: Current Medications Albuterol/Ipratropium (Duoneb 3 Mg/0.5 Mg (3 Ml) Ud) 3 ml INH RQ8 [facility] Last Admin: 11/19/16 15:57 Dose: 3 ml Amlodipine Besylate (Norvasc) 5 mg PO DAILY [facility] Aspirin (Aspirin Chewable) 81 mg NG DAILY [facility] Last Admin: 11/19/16 09:47 Dose: 81 mg Carvedilol (Coreg) 25 mg PO Q12 [facility] Dorzolamide HCl (Trusopt) 0 ml OU BID [facility] Last Admin: 11/19/16 18:07 Dose: 1 drop Famotidine (Pepcid) 20 mg IVP DAILY [facility] Last Admin: 11/19/16 09:46 Dose: 20 mg Gabapentin (Neurontin) 100 mg PO TID [facility] Last Admin: 11/19/16 18:04 Dose: 100 mg Hydralazine HCl (Apresoline) 10 mg IVP Q6H [facility] PRN Reason: SBP above 180 mm Hg Last Admin: 11/19/16 14:07 Dose: 10 mg Tigecycline 50 mg/ Sodium (Chloride) 100 mls @ 100 mls/hr IVPB Q12H [facility] Last Admin: 11/19/16 09:49 Dose: 100 mls/hr Insulin Glargine (Lantus) 10 unit SC HS [facility] Last Admin: 11/18/16 21:39 Dose: 10 units Insulin Human Regular (Novolin R) 0 unit SC Q6H [facility] PRN Reason: Protocol Last Admin: 11/19/16 18:04 Dose: 2 unit Methylprednisolone (Solu-Medrol) 40 mg IVP Q12 [facility] Last Admin: 11/19/16 09:46 Dose: 40 mg Rosuvastatin Calcium (Crestor) 10 mg PO HS [facility] Last Admin: 11/18/16 21:38 Dose: 10 mg Saccharomyces Boulardii (Florastor) 250 mg PO BID [facility] Last Admin: 11/19/16 18:07 Dose: 250 mg - Labs Labs: 11/19/16 06:03 11/19/16 06:03 PT 11.5 SECONDS (9.7-12.2) 11/16/16 06:08 INR 1.0 11/16/16 06:08 APTT 31 SECONDS (21-34) 11/16/16 06:08 - Constitutional Appears: Non-toxic, Chronically Ill - Head Exam Head Exam: NORMOCEPHALIC - Eye Exam Eye Exam: PERRL. absent: Scleral icterus - ENT Exam ENT Exam: Mucous Membranes Dry - Neck Exam Neck Exam: absent: Lymphadenopathy - Respiratory Exam Respiratory Exam: Decreased Breath Sounds, Rhonchi - Cardiovascular Exam Cardiovascular Exam: REGULAR RHYTHM, +S1, +S2 - GI/Abdominal Exam GI & Abdominal Exam: Distended, Soft. absent: Tenderness - Rectal Exam Rectal Exam: Deferred - Exam Exam: NORMAL INSPECTION - Extremities Exam Extremities Exam: absent: Pedal Edema - Back Exam Back Exam: absent: CVA tenderness (L), CVA tenderness (R) Assessment and Plan (1) Acute respiratory failure Status: Acute (2) COPD (chronic obstructive pulmonary disease) Status: Chronic (3) ESRD (end stage renal disease) on dialysis Status: Chronic (4) Congestive heart failure Status: Chronic (5) Diabetes mellitus Status: Chronic (6) HTN (hypertension) Status: Chronic
[2016-11-19] MEDS: (Lantus) Insulin Glargine, Recombinant SC SCH (21:28)
[2016-11-20] MEDS: Albuterol-Ipratrop 3 mg / 0.5 (3 ml) UD INH SCH ×3 (00:19→15:54)
[2016-11-20] MEDS: (Novolin R) Insulin Human Regular 100 units/ml vial SC SCH ×4 (01:23→17:49)
[2016-11-20 06:47] LABS: BASO % 0.2 % (0.0-2.0); HEMOGLOBIN 11.8 g/dL (11.0-16.0); LYMPH # 0.3 K/uL (1.0-4.3); LYMPH % 2.4 % (20.0-40.0); MEAN CELL VOLUME 90.8 fL (81.0-99.0); MEAN CORPUSCULAR HGB CONC 30.9 g/dL (33.0-37.0); MEAN PLATELET VOLUME 12.3 fL (7.2-11.7); MONO # 0.7 K/uL (0.0-0.8); MONO % 5.4 % (0.0-10.0); NEUT # 12.8 K/uL (1.8-7.0); PLATELET COUNT 127 K/uL (130-400); RBC 4.19 Mil/uL (3.80-5.20); RED CELL DISTRIBUTION WIDTH 17.7 % (11.5-14.5); WHITE BLOOD COUNT 13.9 K/uL (4.8-10.8)
[2016-11-20 07:18] LABS: ALBUMIN 2.4 g/dL (3.5-5.0)
[2016-11-20 07:22] LABS: ALB/GLOB RATIO 0.8 (1.0-2.1); CALCIUM 7.5 mg/dl (8.6-10.4)
[2016-11-20 08:24] LABS: MONOCYTE 5 % (0-10); TOTAL CELLS COUNTED 100
[2016-11-20 08:25] LABS: ANISOCYTOSIS SLIGHT; HYPOCHROMIC SLIGHT; LYMPHOCYTE 5 % (20-40); NEUTROPHIL 90 % (50-75); PLATELET ESTIMATE SLIGHTLY DECREASED (NORMAL); POIKILOCYTOSIS SLIGHT
[2016-11-20] MEDS: Saccharomyces Boulardi 250 mg Cap PO SCH ×2 (09:29→17:04)
[2016-11-20] MEDS: MethylPREDNISolone 40 mg Vial IVP SCH ×2 (09:30→21:48)
[2016-11-20] MEDS: Dorzolamide 2% Opht Sol 10ml OU SCH ×2 (09:31→17:05)
--- NOTE | 2016-11-20 12:25 | CP.PCM.PN ---
Subjective - Date & Time of Evaluation Date of Evaluation: 11/20/16 Time of Evaluation: 10:00 - Subjective Subjective: patient seen and examined in the intensive care unit during hemodialysis Awake responsive no respiratory distress Remains hypertensive Objective - Vital Signs/Intake and Output Vital Signs (last 24 hours): Temp Pulse Resp BP Pulse Ox 98 F 84 11 L 188/44 H 100 11/20/16 09:40 11/20/16 12:08 11/20/16 12:08 11/20/16 12:09 11/20/16 12:08 Intake and Output: 11/20/16 11/20/16 06:59 18:59 Intake Total 655 Output Total 400 Balance 255 - Medications Medications: Current Medications Albuterol/Ipratropium (Duoneb 3 Mg/0.5 Mg (3 Ml) Ud) 3 ml INH RQ8 [facility] Last Admin: 11/20/16 07:57 Dose: 3 ml Amlodipine Besylate (Norvasc) 5 mg PO DAILY [facility] Last Admin: 11/20/16 09:29 Dose: 5 mg Aspirin (Aspirin Chewable) 81 mg NG DAILY [facility] Last Admin: 11/20/16 09:29 Dose: 81 mg Carvedilol (Coreg) 25 mg PO Q12 [facility] Last Admin: 11/20/16 11:46 Dose: Not Given Dorzolamide HCl (Trusopt) 0 ml OU BID [facility] Last Admin: 11/20/16 09:31 Dose: 1 drop Famotidine (Pepcid) 20 mg IVP DAILY [facility] Last Admin: 11/20/16 09:29 Dose: 20 mg Gabapentin (Neurontin) 100 mg PO TID [facility] Last Admin: 11/20/16 09:29 Dose: 100 mg Heparin Sodium (Porcine) (Heparin) 5,000 units SC Q12 [facility] Hydralazine HCl (Apresoline) 10 mg IVP Q6H [facility]N PRN Reason: SBP above 180 mm Hg Last Admin: 11/20/16 11:47 Dose: 10 mg Tigecycline 50 mg/ Sodium (Chloride) 100 mls @ 100 mls/hr IVPB Q12H [facility] Last Admin: 11/20/16 09:30 Dose: 100 mls/hr Insulin Glargine (Lantus) 10 unit SC HS [facility] Last Admin: 11/19/16 21:28 Dose: 10 units Insulin Human Regular (Novolin R) 0 unit SC Q6H [facility] PRN Reason: Protocol Last Admin: 11/20/16 11:54 Dose: Not Given Methylprednisolone (Solu-Medrol) 40 mg IVP Q12 [facility] Last Admin: 11/20/16 09:30 Dose: 40 mg Rosuvastatin Calcium (Crestor) 10 mg PO HS [facility] Last Admin: 11/19/16 21:27 Dose: 10 mg Saccharomyces Boulardii (Florastor) 250 mg PO BID [facility] Last Admin: 11/20/16 09:29 Dose: 250 mg - Labs Labs: 11/20/16 06:31 11/20/16 06:31 PT 11.5 SECONDS (9.7-12.2) 11/16/16 06:08 INR 1.0 11/16/16 06:08 APTT 31 SECONDS (21-34) 11/16/16 06:08 - Head Exam Head Exam: ATRAUMATIC, NORMOCEPHALIC - Eye Exam Eye Exam: Normal appearance - ENT Exam ENT Exam: Mucous Membranes Moist - Neck Exam Neck Exam: Normal Inspection - Respiratory Exam Respiratory Exam: Decreased Breath Sounds - Cardiovascular Exam Cardiovascular Exam: REGULAR RHYTHM - GI/Abdominal Exam GI & Abdominal Exam: Soft, Normal Bowel Sounds Assessment and Plan (1) Acute respiratory failure Assessment & Plan: status post extubation in no respiratory distress Status: Acute (2) Hypokalemia Status: Acute (3) COPD (chronic obstructive pulmonary disease) Assessment & Plan: continue nebulizer treatment Start tapering steroids Status: Chronic (4) ESRD (end stage renal disease) on dialysis Status: Chronic
--- NOTE | 2016-11-20 14:43 | CP.PCM.PN ---
<Alejandra Buckley - Last Filed: 11/20/16 17:53> Subjective - Date & Time of Evaluation Date of Evaluation: 11/20/16 Time of Evaluation: 14:43 - Subjective Subjective: Medicine Progress Note- Dr. Esqueda Service Patient was seen and examined at bedside. Patient is status post extubation for 2 days. Patient is able to indicate she has pain in her abdomen and pain in her throat. Patient denies having chest pain, palpitations, nausea, and vomiting. Objective - Vital Signs/Intake and Output Vital Signs (last 24 hours): Temp Pulse Resp BP Pulse Ox 98.2 F 88 11 L 172/52 H 97 11/20/16 12:00 11/20/16 14:24 11/20/16 14:24 11/20/16 14:24 11/20/16 14:24 Intake and Output: 11/20/16 11/20/16 06:59 18:59 Intake Total 655 Output Total 400 Balance 255 - Medications Medications: Current Medications Albuterol/Ipratropium (Duoneb 3 Mg/0.5 Mg (3 Ml) Ud) 3 ml INH RQ8 [facility] Last Admin: 11/20/16 07:57 Dose: 3 ml Amlodipine Besylate (Norvasc) 5 mg PO DAILY [facility] Last Admin: 11/20/16 09:29 Dose: 5 mg Aspirin (Aspirin Chewable) 81 mg NG DAILY [facility] Last Admin: 11/20/16 09:29 Dose: 81 mg Carvedilol (Coreg) 25 mg PO Q12 [facility] Last Admin: 11/20/16 11:46 Dose: Not Given Dorzolamide HCl (Trusopt) 0 ml OU BID [facility] Last Admin: 11/20/16 09:31 Dose: 1 drop Famotidine (Pepcid) 20 mg IVP DAILY [facility] Last Admin: 11/20/16 09:29 Dose: 20 mg Gabapentin (Neurontin) 100 mg PO TID [facility] Last Admin: 11/20/16 13:10 Dose: 100 mg Heparin Sodium (Porcine) (Heparin) 5,000 units SC Q12 [facility] Hydralazine HCl (Apresoline) 10 mg IVP Q6H PRN PRN Reason: SBP above 180 mm Hg Last Admin: 11/20/16 11:47 Dose: 10 mg Tigecycline 50 mg/ Sodium (Chloride) 100 mls @ 100 mls/hr IVPB Q12H [facility] Last Admin: 11/20/16 09:30 Dose: 100 mls/hr Insulin Glargine (Lantus) 10 unit SC [facility] Last Admin: 11/19/16 21:28 Dose: 10 units Insulin Human Regular (Novolin R) 0 unit SC Q6H [facility] PRN Reason: Protocol Last Admin: 11/20/16 11:54 Dose: Not Given Methylprednisolone (Solu-Medrol) 40 mg IVP Q12 [facility] Last Admin: 11/20/16 09:30 Dose: 40 mg Rosuvastatin Calcium (Crestor) 10 mg PO HS [facility] Last Admin: 11/19/16 21:27 Dose: 10 mg Saccharomyces Boulardii (Florastor) 250 mg PO BID [facility] Last Admin: 11/20/16 09:29 Dose: 250 mg - Labs Labs: 11/20/16 06:31 11/20/16 06:31 PT 11.5 SECONDS (9.7-12.2) 11/16/16 06:08 INR 1.0 11/16/16 06:08 APTT 31 SECONDS (21-34) 11/16/16 06:08 - Constitutional Appears: Chronically Ill - Head Exam Head Exam: NORMAL INSPECTION, NORMOCEPHALIC - Eye Exam Eye Exam: Normal appearance - ENT Exam ENT Exam: Mucous Membranes Moist - Respiratory Exam Respiratory Exam: Decreased Breath Sounds, Rhonchi, Wheezes, NORMAL BREATHING PATTERN - Cardiovascular Exam Cardiovascular Exam: REGULAR RHYTHM, +S1, +S2 - GI/Abdominal Exam GI & Abdominal Exam: Soft, Tenderness (with palpation), Normal Bowel Sounds - Extremities Exam Extremities Exam: absent: Normal Inspection Additional comments: bilateral AKA - Neurological Exam Neurological Exam: Alert, Awake - Skin Skin Exam: Dry, Normal Color, Warm Assessment and Plan (1) Acute respiratory failure Assessment & Plan: Intubated in the ED on admission PH: 7.04, CO2: 124 on admission history of COPD Pulmonary consult (Dr. Quach)--->help appreciated Duonebs 3ml INH RQ8 HR Solumedrol 40mg IVP Q 12 hours Extubation 11/18 Chest xray (11/15/16): possible small left pleural effusion. Line and tubes are unchanged Chest Xray 11/16/16): No active disease Chest xray (11/19/16): moderate bilateral pleural effusionsm larger on left; bibasilare atelectasis/pneumonia cannot be excluded. Sputum culture (11/18/16): gram negative ariadne Sputum culture (11/16/16): Klebsiella pneumoniae, multidrug resistant Infectious disease (Dr. Anne) on board-->help appreciated Tigeyclcine 50mg IV 12 hours- day 2 (Active since 11/19/16); changed from Maxipime 1 gram IV Q 24hours F/U on liver function and kidney function tests Monitor WBCs (13.9 on 11/20/16) Aspiration precaution initiated Head of bed 30 degree ordered Status: Acute (2) COPD (chronic obstructive pulmonary disease) Assessment & Plan: Pulmonary Consult (Dr. Quach)-->on board help appreciated Solumdedrol 40mg IV Q 12hours Duonebs 3ml INH RQ8HR Pending chest xray today Sputum culture (11/18/16): gram negative ariadne Sputum culture (11/16/16): Klebsiella pneumoniae, multidrug resistant Status: Chronic (3) Hyperlipidemia Assessment & Plan: Lipid panel: TG mildly elevated Crestor 10mg POqHS Status: Chronic (4) Congestive heart failure Assessment & Plan: Echocardiogram (10/02/16): left ventricle systolic function is normal, EF: 65-70% , no aortic regurgitation is present, mitral regurgitation is mild, mild tricuspid regurgitation, mild pulmonary hypertension, mild pulmonic valvular regurgitation Patient recently started on dialysis about 2 weeks ago Crestor 10mg POqHS Aspirin 81mg PO daily Coreg 12.5mg PO Q12 Status: Chronic (5) Thrombocytopenia Assessment & Plan: d/c heparin 5000 units subq 12 hours-->ordered for heparin induced thrombocytopenia F/U on Heparin induced platelet antibody and heparin-induce thrombocyte Status: Acute (6) ESRD (end stage renal disease) on dialysis Assessment & Plan: Nephrology consult, Dr. Saeed, help appreciated Patient recently started on dialysis about 2 weeks ago at [place] per review of EMR Dialysis: T/Treasure/Sat Monitor BP during dialysis days. Status: Chronic (7) Diabetes mellitus Assessment & Plan: Hgba1c: 5.0 controlled Accuchecks Q6H insulin sliding scale QACHS lantus 10 units subqHS Neurotonin 100mg PO tid Status: Chronic (8) HTN (hypertension) Assessment & Plan: Monitor blood pressure Coreg 12.5mg PO Q12 Monitor BP during dialysis days Status: Chronic (9) Diarrhea Assessment & Plan: pepcid 20mg IVq daily Blood cultures (11/14/16): no growth X 4 days X2 Urine culture (11/14/16): no growth MRSA (11/15/16): MRSA not detected Blood culture (11/16/16): no growth after 48 hours 11/16/16: No salmonella, shigella, or campylobacter Urine culture: no growth Florastor 250mg PO bid C dif: negative Status: Acute (10) Malnutrition Assessment & Plan: Low albumin at 2.4 (11/20/16) Financial Economist consulted Status: Acute (11) Prophylactic measure Assessment & Plan: d/c heparin secondary to thrombocytopenia Pepcid 20mg IV q daily Florastor 250mg PO bid Status: Acute <Ondina Esqueda V - Last Filed: 11/21/16 07:50> Objective - Vital Signs/Intake and Output Vital Signs (last 24 hours): Temp Pulse Resp BP Pulse Ox 99.2 F 97 H 24 153/30 H 100 11/21/16 04:00 11/21/16 06:25 11/21/16 06:25 11/21/16 06:25 11/21/16 06:25 Intake and Output: 11/21/16 11/21/16 06:59 18:59 Intake Total 100 Output Total 450 Balance -350 - Medications Medications: Current Medications Albuterol/Ipratropium (Duoneb 3 Mg/0.5 Mg (3 Ml) Ud) 3 ml INH RQ8 [facility] Last Admin: 11/21/16 00:23 Dose: 3 ml Amlodipine Besylate (Norvasc) 5 mg PO DAILY [facility] Last Admin: 11/20/16 09:29 Dose: 5 mg Aspirin (Aspirin Chewable) 81 mg NG DAILY [facility] Last Admin: 11/20/16 09:29 Dose: 81 mg Carvedilol (Coreg) 25 mg PO Q12 [facility] Last Admin: 11/20/16 21:46 Dose: 25 mg Dorzolamide HCl (Trusopt) 0 ml OU BID [facility] Last Admin: 11/20/16 17:05 Dose: 1 drop Famotidine (Pepcid) 20 mg IVP DAILY [facility] Last Admin: 11/20/16 09:29 Dose: 20 mg Gabapentin (Neurontin) 100 mg PO TID [facility] Last Admin: 11/20/16 17:05 Dose: 100 mg Hydralazine HCl (Apresoline) 10 mg IVP Q6H PRN PRN Reason: SBP above 180 mm Hg Last Admin: 11/20/16 11:47 Dose: 10 mg Tigecycline 50 mg/ Sodium (Chloride) 100 mls @ 100 mls/hr IVPB Q12H [facility] Last Admin: 11/20/16 21:00 Dose: 100 mls/hr Insulin Glargine (Lantus) 10 unit SC HS [facility] Last Admin: 11/20/16 21:48 Dose: 10 units Insulin Human Regular (Novolin R) 0 unit SC Q6H [facility] PRN Reason: Protocol Last Admin: 11/21/16 06:02 Dose: Not Given Methylprednisolone (Solu-Medrol) 40 mg IVP Q12 [facility] Last Admin: 11/20/16 21:48 Dose: 40 mg Rosuvastatin Calcium (Crestor) 10 mg PO HS [facility] Last Admin: 11/20/16 21:45 Dose: 10 mg Saccharomyces Boulardii (Florastor) 250 mg PO BID [facility] Last Admin: 11/20/16 17:04 Dose: 250 mg - Labs Labs: 11/21/16 06:22 11/21/16 06:22 PT 11.5 SECONDS (9.7-12.2) 11/16/16 06:08 INR 1.0 11/16/16 06:08 APTT 31 SECONDS (21-34) 11/16/16 06:08 Assessment and Plan (1) Acute respiratory failure Status: Acute (2) COPD (chronic obstructive pulmonary disease) Status: Chronic (3) Hyperlipidemia Status: Chronic (4) Congestive heart failure Status: Chronic (5) Diabetes mellitus Status: Chronic (6) ESRD (end stage renal disease) on dialysis Status: Chronic (7) HTN (hypertension) Status: Chronic (8) Hypokalemia Status: Acute (9) Prophylactic measure Status: Acute Attending/Attestation - Attestation I have personally seen and examined this patient.: Yes I have fully participated in the care of the patient.: Yes I have reviewed all pertinent clinical information, including history, physical exam and plan: Yes Notes (Text): This is late computer entry for 11/20/16. Patient seen, examined, and case discussed with day-time resident Patient seen at bedside. patient is hard of hearing but understands in [place]. I've had patient in prior admission. Patient is pending swallow eval to determine if she can eat by mouth. Patient still ordered for tube feedings. Patient has multidrug resistent Klebsiella pneumonia; currently on Tigecycline per infectious disease and on contact precautions. Order repeat chest xray tomorrow. Patient completed dialysis today, potassium bath adjusted given K+3.5 per discussion with the nurse, and also noted patient has alot of thick secretions while suctioning. Patient has a PICC line. Discontinue heparin secondary to thrombocytopenia. Turn q2 hours and wound care PRN. Patient has rectocel, bahena, and PICC line and on venti mask at bedside. Assessment/Plan (1) Acute respiratory failure Assessment & Plan: Intubated in the ED on admission PH: 7.04, CO2: 124 on admission history of COPD Pulmonary consult (Dr. Quach)--->help appreciated--taper off steroids Duonebs 3ml INH RQ8 HR Solumedrol 40mg IVP Q 12 hours Extubation 11/18 Ordered for chest xray tomorrow. Chest xray (11/15/16): possible small left pleural effusion. Line and tubes are unchanged Chest Xray 11/16/16): No active disease Status: Acute (2) Multi-drug resistant Klebsiella pneumonia Assessment & Plan: Sputum culture (11/18/16): Klebsiella pneumoniae-->on Tigecycline Sputum culture (11/16/16): Klebsiella pneumoniae Infectious disease (Dr. Anne) on board-->help appreciated Tigeyclcine 50mg IV 12 hours (Active since 11/19/16); changed fro,m Maxipime 1 gram IV Q 24hours Has PICC alexandre Contact precautions Status: Acute (3) Leukocytosis Sputum culture (11/18/16): Klebsiella pneumoniae-->on Tigecycline Sputum culture (11/16/16): Klebsiella pneumoniae Infectious disease (Dr. Anne) on board-->help appreciated Tigeyclcine 50mg IV 12 hours (Active since 11/19/16); changed fro,m Maxipime 1 gram IV Q 24hours Has PICC alexandre Contact precautions May need repeat cultures if continues to uptrend Ordered for repeat chest xray tomorrow Blood cultures (11/14/16): no growth X 5days Urine culture (11/14/16): no growth MRSA (11/15/16): MRSA not detected Blood culture (11/16/16): no growth after 3 days 11/16/16: No salmonella, shigella, or campylobacter Urine culture: no growth Florastor 250mg PO bid C dif: negative has bahena, PICC line, and rectocel Status: Acute (4) COPD (chronic obstructive pulmonary disease) Assessment & Plan: Pulmonary Consult (Dr. Quach)-->on board help appreciated-->taper steroids Solumdedrol 40mg IV Q 12hours Duonebs 3ml INH RQ8HR Order for chest xray tomorrow Status: Chronic (5) Hyperlipidemia Assessment & Plan: Lipid panel: TG mildly elevated Crestor 10mg POqHS Status: Chronic (6) Congestive heart failure Assessment & Plan: Echocardiogram (10/02/16): left ventricle systolic function is normal, EF: 65-70% , no aortic regurgitation is present, mitral regurgitation is mild, mild trciuspid regurgitation, mild pulmonary hypertension, mild pulmonic valvular regurgitation patient recently started on dialysis about 2 weeks ago Crestor 10mg POqHS Aspirin 81mg PO daily Coreg 12.5mg PO Q12 Status: Chronic (7) Diabetes mellitus Assessment & Plan: Accuchecks Q6H insulin sliding scale subq6H hgba1c: 5.0 controlled lantus 10 units subqHS Neurotonin 100mg PO tid Status: Chronic (8) ESRD (end stage renal disease) on dialysis Assessment & Plan: Nephrology consult, Dr. Saeed, help appreciated Patient recently started on dialysis about 2 weeks ago at [place] per review of EMR Dialysis: T/Treasure/Sat Status: Chronic (9) HTN (hypertension) Assessment & Plan: Monitor blood pressure Coreg 12.5mg PO Q12 Status: Chronic (10) Thrombocytopenia Assessment & Plan: d/c heparin 5000 units subq 12 hours-->ordered for heparin induced thrombocytopenia Florastor 250mg PO bid Status: Acute (11) Loose stool Assessment & Plan: pepcid 20mg IVq daily Blood cultures (11/14/16): no growth X 4 days X2 Urine culture (11/14/16): no growth MRSA (11/15/16): MRSA not detected Blood culture (11/16/16): no growth after 48 houts 11/16/16: No salmonella, shigella, or campylobacter Urine culture: no growth Florastor 250mg PO bid C dif: negative Status: Acute (12) Prophylactic care Assessment & Plan: d/c heparin secondary to thrombocytopenia Pepcid 20mg IV q daily turnq2 hours wound care Status: Acute
--- NOTE | 2016-11-20 18:36 | CP.PCM.PN ---
Subjective - Date & Time of Evaluation Date of Evaluation: 11/20/16 Time of Evaluation: 18:36 - Subjective Subjective: pt pt seen and examined by me, on face mask, not in acute distress, loose bm, pt has rectal tube. s/p HD today, had a uf about 2 lit Objective - Vital Signs/Intake and Output Vital Signs (last 24 hours): Temp Pulse Resp BP Pulse Ox 99.1 F 89 26 H 114/36 L 99 11/20/16 16:00 11/20/16 18:00 11/20/16 18:00 11/20/16 17:24 11/20/16 18:00 Intake and Output: 11/20/16 11/20/16 06:59 18:59 Intake Total 655 920 Output Total 400 150 Balance 255 770 - Medications Medications: Current Medications Albuterol/Ipratropium (Duoneb 3 Mg/0.5 Mg (3 Ml) Ud) 3 ml INH RQ8 [facility] Last Admin: 11/20/16 15:54 Dose: 3 ml Amlodipine Besylate (Norvasc) 5 mg PO DAILY [facility] Last Admin: 11/20/16 09:29 Dose: 5 mg Aspirin (Aspirin Chewable) 81 mg NG DAILY [facility] Last Admin: 11/20/16 09:29 Dose: 81 mg Carvedilol (Coreg) 25 mg PO Q12 [facility] Last Admin: 11/20/16 11:46 Dose: Not Given Dorzolamide HCl (Trusopt) 0 ml OU BID [facility] Last Admin: 11/20/16 17:05 Dose: 1 drop Famotidine (Pepcid) 20 mg IVP DAILY [facility] Last Admin: 11/20/16 09:29 Dose: 20 mg Gabapentin (Neurontin) 100 mg PO TID [facility] Last Admin: 11/20/16 17:05 Dose: 100 mg Hydralazine HCl (Apresoline) 10 mg IVP Q6H PRN PRN Reason: SBP above 180 mm Hg Last Admin: 11/20/16 11:47 Dose: 10 mg Tigecycline 50 mg/ Sodium (Chloride) 100 mls @ 100 mls/hr IVPB Q12H [facility] Last Admin: 11/20/16 09:30 Dose: 100 mls/hr Insulin Glargine (Lantus) 10 unit SC HS [facility] Last Admin: 11/19/16 21:28 Dose: 10 units Insulin Human Regular (Novolin R) 0 unit SC Q6H [facility] PRN Reason: Protocol Last Admin: 11/20/16 17:49 Dose: 2 unit Methylprednisolone (Solu-Medrol) 40 mg IVP Q12 [facility] Last Admin: 11/20/16 09:30 Dose: 40 mg Rosuvastatin Calcium (Crestor) 10 mg PO HS [facility] Last Admin: 11/19/16 21:27 Dose: 10 mg Saccharomyces Boulardii (Florastor) 250 mg PO BID [facility] Last Admin: 11/20/16 17:04 Dose: 250 mg - Labs Labs: 11/20/16 06:31 11/20/16 06:31 PT 11.5 SECONDS (9.7-12.2) 11/16/16 06:08 INR 1.0 11/16/16 06:08 APTT 31 SECONDS (21-34) 11/16/16 06:08 - Constitutional Appears: Well, Non-toxic, No Acute Distress - Head Exam Head Exam: ATRAUMATIC, NORMAL INSPECTION, NORMOCEPHALIC - Eye Exam Eye Exam: EOMI, Normal appearance, PERRL Pupil Exam: NORMAL ACCOMODATION, PERRL - ENT Exam ENT Exam: Mucous Membranes Moist - Neck Exam Neck Exam: Lymphadenopathy, Normal Inspection - Respiratory Exam Respiratory Exam: NORMAL BREATHING PATTERN Additional comments: on face mask - Cardiovascular Exam Cardiovascular Exam: REGULAR RHYTHM, +S1, +S2 - GI/Abdominal Exam GI & Abdominal Exam: Soft, Tenderness, Normal Bowel Sounds - Rectal Exam Rectal Exam: Deferred - Extremities Exam Additional comments: b/l AKA - Neurological Exam Neurological Exam: Alert, Awake Additional comments: oriented x 2-3 Assessment and Plan - Assessment and Plan (Free Text) Plan: 61 yo HF with pmh/o htn, dm, chf, copd/ [place] was admitted with sob, resp failure, s/p intubation and extubated 2 days ago, esrd on he 3 x aweek 1. ESRD, 2. htn 3. dm 4. copd 5. b/l effusion 6. r/o pneumonia c/w hd 3 x aweek TTS, had a uf about 2 lit today +MDRO , k. pneumonia in the sputum, c/w iv abx as per ID
--- NOTE | 2016-11-20 21:16 | CARD ---
APPROVED REPORT EKG Measurement Heart [id number] <Conclusion> Normal sinus rhythm T wave abnormality, consider inferior ischemia Prolonged QT Abnormal ECG
[2016-11-20] MEDS: (Lantus) Insulin Glargine, Recombinant SC SCH (21:48)
[2016-11-21] MEDS: Albuterol-Ipratrop 3 mg / 0.5 (3 ml) UD INH SCH ×5 (00:23→19:19)
[2016-11-21] MEDS: (Novolin R) Insulin Human Regular 100 units/ml vial SC SCH ×4 (06:02→17:31)
[2016-11-21 06:43] LABS: BASO % 0.2 % (0.0-2.0); HEMOGLOBIN 11.9 g/dL (11.0-16.0); LYMPH # 0.4 K/uL (1.0-4.3); LYMPH % 2.2 % (20.0-40.0); MEAN CELL VOLUME 89.5 fL (81.0-99.0); MEAN CORPUSCULAR HEMOGLOBIN 27.8 pg (27.0-31.0); MEAN CORPUSCULAR HGB CONC 31.1 g/dL (33.0-37.0); MEAN PLATELET VOLUME 12.1 fL (7.2-11.7); MONO # 0.7 K/uL (0.0-0.8); MONO % 3.8 % (0.0-10.0); NEUT # 16.5 K/uL (1.8-7.0); NEUT % 93.8 % (50.0-75.0); NRBC % 0.1 % (0.0-2.0); PLATELET COUNT 144 K/uL (130-400); RBC 4.27 Mil/uL (3.80-5.20); RED CELL DISTRIBUTION WIDTH 17.9 % (11.5-14.5); WHITE BLOOD COUNT 17.6 K/uL (4.8-10.8)
[2016-11-21 06:58] LABS: ALBUMIN 2.4 g/dL (3.5-5.0)
[2016-11-21 07:01] LABS: ALB/GLOB RATIO 0.8 (1.0-2.1)
[2016-11-21 07:02] LABS: CALCIUM 7.4 mg/dl (8.6-10.4)
--- NOTE | 2016-11-21 07:47 | CP.CCUPN ---
CCU Subjective - Physician Review Subjective (Free Text): 11/19/16 08:17 Patient seen and examined. No acute events overnight as per nursing. Extubated and tolerating ventimask. AO x 1. Stable for transfer to [facility] CCU Objective - Vital Signs / Intake & Output Vital Signs (Last 4 hours): Vital Signs Temp Pulse Resp BP Pulse Ox 11/21/16 06:25 97 H 24 153/30 H 100 11/21/16 06:00 97 H 12 100 11/21/16 05:25 94 H 19 139/104 H 100 11/21/16 05:00 95 H 100 11/21/16 04:46 87 24 132/38 L 98 11/21/16 04:42 91 H 25 H 143/35 L 98 11/21/16 04:25 96 H 21 166/42 H 92 L 11/21/16 04:00 99.2 F 96 H 19 91 L Intake and Output (Last 8hrs): Intake & Output 11/20/16 11/21/16 11/21/16 22:59 06:59 14:59 Intake Total 920 100 Output Total 150 450 Balance 770 -350 Intake: Intake, IV Amount 100 100 Left Upper arm 100 100 Tube Feeding 420 Other 400 Output: Urine 100 150 2-way Urethral 100 150 Stool 50 300 - Physical Exam Head: Positive for: Atraumatic, Normocephalic Pupils: Positive for: PERRL Extroacular Muscles: Positive for: EOMI Conjunctiva: Positive for: Normal. Negative for: Injected, Icteric Mouth: Positive for: Moist Mucous Membranes Respiratory/Chest: Negative for: Respiratory Distress, Accessory Muscle Use, Rales, Retracting, Rhonchi Cardiovascular: Positive for: Regular Rate and Rhythm, Normal S1, S2 Abdomen: Positive for: Normal Bowel Sounds. Negative for: Tenderness Lower Extremity: Positive for: Other (b/l AKA). Negative for: Normal Inspection Skin: Positive for: Warm, Dry, Normal Color Psychiatric: Positive for: Alert. Negative for: Oriented x 3 - Medications Active Medications: Active Medications Generic Name Dose Route Start Last Admin Trade Name Freq PRN Reason Stop Dose Admin Albuterol/Ipratropium 3 ml 11/16/16 08:45 11/21/16 00:23 Duoneb 3 Mg/0.5 Mg (3 Ml) Ud INH 3 ml RQ8 [facility] Administration Amlodipine Besylate 5 mg 11/20/16 10:00 11/20/16 09:29 Norvasc PO 5 mg DAILY [facility] Administration Aspirin 81 mg 11/16/16 10:15 11/20/16 09:29 Aspirin Chewable NG 81 mg DAILY [facility] Administration Carvedilol 25 mg 11/19/16 16:58 11/20/16 21:46 Coreg PO 25 mg Q12 [facility] Administration Dorzolamide HCl 0 ml 11/16/16 10:00 11/20/16 17:05 Trusopt OU 1 drop BID [facility] Administration Famotidine 20 mg 11/17/16 10:00 11/20/16 09:29 Pepcid IVP 20 mg DAILY [facility] Administration Gabapentin 100 mg 11/16/16 10:00 11/20/16 17:05 Neurontin PO 100 mg TID [facility] Administration Hydralazine HCl 10 mg 11/19/16 13:44 11/20/16 11:47 Apresoline IVP 10 mg Q6H PRN Administration SBP above 180 mm Hg Tigecycline 50 mg/ Sodium 100 mls @ 100 mls/hr 11/19/16 10:00 11/20/16 21:00 Chloride IVPB 100 mls/hr Q12H [facility] Administration Insulin Glargine 10 unit 11/18/16 22:00 11/20/16 21:48 Lantus SC 10 units HS [facility] Administration Insulin Human Regular 0 unit 11/15/16 06:00 11/21/16 06:02 Novolin R SC Not Given Q6H [facility] Protocol Methylprednisolone 40 mg 11/16/16 10:00 11/20/16 21:48 Solu-Medrol IVP 40 mg Q12 [facility] Administration Rosuvastatin Calcium 10 mg 11/16/16 22:00 11/20/16 21:45 Crestor PO 10 mg HS [facility] Administration Saccharomyces Boulardii 250 mg 11/16/16 10:00 11/20/16 17:04 Florastor PO 250 mg BID [facility]ETH Administration - Patient Studies Lab Studies: Microbiology Studies 11/16/16 08:28 Blood Culture - Preliminary Blood-Venous NO GROWTH AFTER 4 DAYS 11/18/16 14:00 Gram Stain - Final Trachasp Sputum Culture - Final Klebsiella Pneumoniae Ssp Pneu Lab Studies 11/21/16 11/21/16 11/21/16 Range/Units 06:22 06:22 05:38 WBC 17.6 H (4.8-10.8) K/uL RBC 4.27 (3.80-5.20) Mil/uL Hgb 11.9 (11.0-16.0) g/dL Hct 38.2 (34.0-47.0) % MCV 89.5 (81.0-99.0) fL MCH 27.8 (27.0-31.0) pg MCHC 31.1 L (33.0-37.0) g/dL RDW 17.9 H (11.5-14.5) % Plt Count 144 (130-400) K/uL MPV 12.1 H (7.2-11.7) fL Neut % (Auto) 93.8 H (50.0-75.0) % Lymph % (Auto) 2.2 L (20.0-40.0) % [place] % (Auto) 3.8 (0.0-10.0) % Eos % (Auto) 0.0 (0.0-4.0) % Baso % (Auto) 0.2 (0.0-2.0) % Neut # 16.5 H (1.8-7.0) K/uL Lymph # 0.4 L (1.0-4.3) K/uL [place] # 0.7 (0.0-0.8) K/uL Eos # 0.0 (0.0-0.7) K/uL Baso # 0.0 (0.0-0.2) K/uL Neutrophils % (Manual) (50-75) % Lymphocytes % (Manual) (20-40) % Monocytes % (Manual) (0-10) % Platelet Estimate (NORMAL) Hypochromasia (manual) Poikilocytosis (manual Anisocytosis (manual) Sodium 135 (132-148) mmol/L Potassium 3.8 (3.6-5.2) mmol/L Chloride 99 (98-107) mmol/L Carbon Dioxide 30 (22-30) mmol/L Anion Gap 10 (10-20) BUN 53 H (7-17) mg/dL Creatinine 1.8 H (0.7-1.2) MG/DL Est GFR ( Amer) 34 Est GFR (Non-Af Amer) 28 POC Glucose (mg/dL) 137 H (65-110) mg/dL Random Glucose 123 H (65-105) mg/dL Calcium 7.4 L (8.6-10.4) mg/dl Phosphorus 2.5 (2.5-4.5) mg/dL Magnesium 2.0 (1.6-2.3) mg/dL Total Bilirubin 0.5 (0.2-1.3) mg/dL AST 27 (14-36) U/L ALT 14 (9-52) U/L Alkaline Phosphatase 147 H (38-126) U/L Total Protein 5.3 L (6.3-8.3) g/dL Albumin 2.4 L (3.5-5.0) g/dL Globulin 2.9 (2.2-3.9) gm/dL Albumin/Globulin Ratio 0.8 L (1.0-2.1) Stool Leukocytes, Qual (NEGATIVE) C. difficile Ag & Toxin (NEGATIVE) 11/20/16 11/20/16 11/20/16 Range/Units Unknown Unknown 23:43 WBC (4.8-10.8) K/uL RBC (3.80-5.20) Mil/uL Hgb (11.0-16.0) g/dL Hct (34.0-47.0) % MCV (81.0-99.0) fL MCH (27.0-31.0) pg MCHC (33.0-37.0) g/dL RDW (11.5-14.5) % Plt Count (130-400) K/uL MPV (7.2-11.7) fL Neut % (Auto) (50.0-75.0) % Lymph % (Auto) (20.0-40.0) % [place] % (Auto) (0.0-10.0) % Eos % (Auto) (0.0-4.0) % Baso % (Auto) (0.0-2.0) % Neut # (1.8-7.0) K/uL Lymph # (1.0-4.3) K/uL [place] # (0.0-0.8) K/uL Eos # (0.0-0.7) K/uL Baso # (0.0-0.2) K/uL Neutrophils % (Manual) (50-75) % Lymphocytes % (Manual) (20-40) % Monocytes % (Manual) (0-10) % Platelet Estimate (NORMAL) Hypochromasia (manual) Poikilocytosis (manual Anisocytosis (manual) Sodium (132-148) mmol/L Potassium (3.6-5.2) mmol/L Chloride (98-107) mmol/L Carbon Dioxide (22-30) mmol/L Anion Gap (10-20) BUN (7-17) mg/dL Creatinine (0.7-1.2) MG/DL Est GFR ( Amer) Est GFR (Non-Af Amer) POC Glucose (mg/dL) 141 H (65-110) mg/dL Random Glucose (65-105) mg/dL Calcium (8.6-10.4) mg/dl Phosphorus (2.5-4.5) mg/dL Magnesium (1.6-2.3) mg/dL Total Bilirubin (0.2-1.3) mg/dL AST (14-36) U/L ALT (9-52) U/L Alkaline Phosphatase (38-126) U/L Total Protein (6.3-8.3) g/dL Albumin (3.5-5.0) g/dL Globulin (2.2-3.9) gm/dL Albumin/Globulin Ratio (1.0-2.1) Stool Leukocytes, Qual Negative (NEGATIVE) C. difficile Ag & Toxin Negative (NEGATIVE) 11/20/16 11/20/16 11/20/16 Range/Units 17:42 11:49 06:31 WBC (4.8-10.8) K/uL RBC (3.80-5.20) Mil/uL Hgb (11.0-16.0) g/dL Hct (34.0-47.0) % MCV (81.0-99.0) fL MCH (27.0-31.0) pg MCHC (33.0-37.0) g/dL RDW (11.5-14.5) % Plt Count (130-400) K/uL MPV (7.2-11.7) fL Neut % (Auto) (50.0-75.0) % Lymph % (Auto) (20.0-40.0) % [place] % (Auto) (0.0-10.0) % Eos % (Auto) (0.0-4.0) % Baso % (Auto) (0.0-2.0) % Neut # (1.8-7.0) K/uL Lymph # (1.0-4.3) K/uL [place] # (0.0-0.8) K/uL Eos # (0.0-0.7) K/uL Baso # (0.0-0.2) K/uL Neutrophils % (Manual) 90 H (50-75) % Lymphocytes % (Manual) 5 L (20-40) % Monocytes % (Manual) 5 (0-10) % Platelet Estimate Slightly decreased L (NORMAL) Hypochromasia (manual) Slight Poikilocytosis (manual Slight Anisocytosis (manual) Slight Sodium (132-148) mmol/L Potassium (3.6-5.2) mmol/L Chloride (98-107) mmol/L Carbon Dioxide (22-30) mmol/L Anion Gap (10-20) BUN (7-17) mg/dL Creatinine (0.7-1.2) MG/DL Est GFR ( Amer) Est GFR (Non-Af Amer) POC Glucose (mg/dL) 235 H 134 H (65-110) mg/dL Random Glucose (65-105) mg/dL Calcium (8.6-10.4) mg/dl Phosphorus (2.5-4.5) mg/dL Magnesium (1.6-2.3) mg/dL Total Bilirubin (0.2-1.3) mg/dL AST (14-36) U/L ALT (9-52) U/L Alkaline Phosphatase (38-126) U/L Total Protein (6.3-8.3) g/dL Albumin (3.5-5.0) g/dL Globulin (2.2-3.9) gm/dL Albumin/Globulin Ratio (1.0-2.1) Stool Leukocytes, Qual (NEGATIVE) C. difficile Ag & Toxin (NEGATIVE) Laboratory Results - last 24 hr 11/20/16 11/20/16 11/20/16 06:31 11:49 17:42 WBC RBC Hgb Hct MCV MCH MCHC RDW Plt Count MPV Neut % (Auto) Lymph % (Auto) [place] % (Auto) Eos % (Auto) Baso % (Auto) Neut # Lymph # [place] # Eos # Baso # Neutrophils % (Manual) 90 H Lymphocytes % (Manual) 5 L Monocytes % (Manual) 5 Platelet Estimate Slightly decreased L Hypochromasia (manual) Slight Poikilocytosis (manual Slight Anisocytosis (manual) Slight Sodium Potassium Chloride Carbon Dioxide Anion Gap BUN Creatinine Est GFR ( Amer) Est GFR (Non-Af Amer) POC Glucose (mg/dL) 134 H 235 H Random Glucose Calcium Phosphorus Magnesium Total Bilirubin AST ALT Alkaline Phosphatase Total Protein Albumin Globulin Albumin/Globulin Ratio Stool Leukocytes, Qual C. difficile Ag & Toxin 11/20/16 11/20/16 11/20/16 23:43 Unknown Unknown WBC RBC Hgb Hct MCV MCH MCHC RDW Plt Count MPV Neut % (Auto) Lymph % (Auto) [place] % (Auto) Eos % (Auto) Baso % (Auto) Neut # Lymph # [place] # Eos # Baso # Neutrophils % (Manual) Lymphocytes % (Manual) Monocytes % (Manual) Platelet Estimate Hypochromasia (manual) Poikilocytosis (manual Anisocytosis (manual) Sodium Potassium Chloride Carbon Dioxide Anion Gap BUN Creatinine Est GFR ( Amer) Est GFR (Non-Af Amer) POC Glucose (mg/dL) 141 H Random Glucose Calcium Phosphorus Magnesium Total Bilirubin AST ALT Alkaline Phosphatase Total Protein Albumin Globulin Albumin/Globulin Ratio Stool Leukocytes, Qual Negative C. difficile Ag & Toxin Negative 11/21/16 11/21/16 11/21/16 05:38 06:22 06:22 WBC 17.6 H RBC 4.27 Hgb 11.9 Hct 38.2 MCV 89.5 MCH 27.8 MCHC 31.1 L RDW 17.9 H Plt Count 144 MPV 12.1 H Neut % (Auto) 93.8 H Lymph % (Auto) 2.2 L [place] % (Auto) 3.8 Eos % (Auto) 0.0 Baso % (Auto) 0.2 Neut # 16.5 H Lymph # 0.4 L [place] # 0.7 Eos # 0.0 Baso # 0.0 Neutrophils % (Manual) Lymphocytes % (Manual) Monocytes % (Manual) Platelet Estimate Hypochromasia (manual) Poikilocytosis (manual Anisocytosis (manual) Sodium 135 Potassium 3.8 Chloride 99 Carbon Dioxide 30 Anion Gap 10 BUN 53 H Creatinine 1.8 H Est GFR ( Amer) 34 Est GFR (Non-Af Amer) 28 POC Glucose (mg/dL) 137 H Random Glucose 123 H Calcium 7.4 L Phosphorus 2.5 Magnesium 2.0 Total Bilirubin 0.5 AST 27 ALT 14 Alkaline Phosphatase 147 H Total Protein 5.3 L Albumin 2.4 L Globulin 2.9 Albumin/Globulin Ratio 0.8 L Stool Leukocytes, Qual C. difficile Ag & Toxin Fingerstick Blood Sugar Results: 235
[2016-11-21 08:22] LABS: BANDS 2 % (0-2); LYMPHOCYTE 1 % (20-40); MONOCYTE 1 % (0-10); NEUTROPHIL 96 % (50-75); PLATELET ESTIMATE NORMAL (NORMAL); TOTAL CELLS COUNTED 100
[2016-11-21 08:23] LABS: ANISOCYTOSIS SLIGHT; LARGE PLATELETS PRESENT
[2016-11-21 08:47] LABS: ARTERIAL BLOOD GAS HEMOGLOBIN 11.9 g/dL (11.7-17.4); ARTERIAL BLOOD GAS O2 SAT 99.8 % (95-98); ARTERIAL BLOOD GAS PCO2 43 mm/Hg (35-45); ARTERIAL BLOOD GAS PH 7.45 (7.35-7.45); ARTERIAL BLOOD GAS PO2 117 mm/Hg (80-100); ARTERIAL BLOOD GAS TCO2 31.2 mmol/L (22-28)
[2016-11-21] MEDS: Dorzolamide 2% Opht Sol 10ml OU SCH ×2 (09:15→17:47)
[2016-11-21] MEDS: MethylPREDNISolone 40 mg Vial IVP SCH ×2 (09:16→22:45)
[2016-11-21] MEDS: Saccharomyces Boulardi 250 mg Cap PO SCH ×2 (09:16→17:47)
[2016-11-21] MEDS: Acetylcysteine 20% Inhal Soln (4ml) INH SCH ×3 (10:20→19:19)
--- NOTE | 2016-11-21 10:34 | RAD ---
Chest x-ray single frontal view History: Pneumonia. Comparison: 11/19/2016 Findings: Interval near complete/complete opacification of the left opal thorax suggestive for lung collapse and or pleural effusion. Heart is obscured. Moderate venous congestion in the right opal thorax. Lines and tubes stable position. Degenerative changes in the spine and shoulders. Impression: Interval near complete/complete opacification of the left opal thorax suggestive for lung collapse and or pleural effusion. Heart is obscured. Moderate venous congestion in the right opal thorax.
--- NOTE | 2016-11-21 13:40 | RAD ---
HISTORY: mucous plug COMPARISON: Comparison made with prior study 11/21/2016 FINDINGS: LUNGS: Re- demonstrated is near complete opacification left opal thorax with some minimal aeration in the left infrahilar region. Mild right basilar atelectasis. There may also be small right-sided effusion. There also appears to be mild central pulmonary vascular congestion. Small right upper lobe nodular density probably represents a tiny granuloma. . PLEURA: No significant pleural effusion identified, no pneumothorax apparent. CARDIOVASCULAR: Normal. OSSEOUS STRUCTURES: No significant abnormalities. VISUALIZED UPPER ABDOMEN: Normal. OTHER FINDINGS: No change right IJ large-bore catheter with tip in the SVC/RA junction. Left-sided PICC line with tip in the upper SVC/RA junction unchanged. NGT is present, tip of which has not been included on this film though distal aspect does lie well below EG junction. IMPRESSION: Support lines and tubes as above. Re- demonstrated is near complete opacification left opal thorax with some minimal aeration in the left infrahilar region. Mild right basilar atelectasis. There may also be small right-sided effusion. There also appears to be mild central pulmonary vascular congestion. Small right upper lobe nodular density probably represents a tiny granuloma. .
--- NOTE | 2016-11-21 13:56 | CP.PCM.PN ---
Subjective - Date & Time of Evaluation Date of Evaluation: 11/21/16 Time of Evaluation: 09:00 - Subjective Subjective: PGY1 on medicine Dr. Canas's service: Patient seen and examined at bedside this morning. Patient responds to name. Patient is not oriented to place or time. Objective - Vital Signs/Intake and Output Vital Signs (last 24 hours): Temp Pulse Resp BP Pulse Ox 98.2 F 90 16 119/91 H 88 L 11/21/16 12:00 11/21/16 13:00 11/21/16 13:00 11/21/16 12:24 11/21/16 13:00 Intake and Output: 11/21/16 11/21/16 06:59 18:59 Intake Total 100 170 Output Total 450 Balance -350 170 - Medications Medications: Current Medications Acetylcysteine (Acetylcysteine 20%) 4 ml INH RQ6 [facility] Last Admin: 11/21/16 13:37 Dose: 4 ml Albuterol/Ipratropium (Duoneb 3 Mg/0.5 Mg (3 Ml) Ud) 3 ml INH RQ6 [facility] Last Admin: 11/21/16 13:37 Dose: 3 ml Amlodipine Besylate (Norvasc) 5 mg PO DAILY [facility] Last Admin: 11/21/16 09:16 Dose: 5 mg Aspirin (Aspirin Chewable) 81 mg NG DAILY [facility] Last Admin: 11/21/16 09:16 Dose: 81 mg Carvedilol (Coreg) 25 mg PO Q12 [facility] Last Admin: 11/21/16 09:16 Dose: 25 mg Dorzolamide HCl (Trusopt) 0 ml OU BID [facility] Last Admin: 11/21/16 09:15 Dose: 1 drop Famotidine (Pepcid) 20 mg IVP DAILY [facility] Last Admin: 11/21/16 09:16 Dose: 20 mg Gabapentin (Neurontin) 100 mg PO TID [facility] Last Admin: 11/21/16 13:40 Dose: 100 mg Hydralazine HCl (Apresoline) 10 mg IVP Q6H PRN PRN Reason: SBP above 180 mm Hg Last Admin: 11/20/16 11:47 Dose: 10 mg Tigecycline 50 mg/ Sodium (Chloride) 100 mls @ 100 mls/hr IVPB Q12H [facility] Last Admin: 11/21/16 09:17 Dose: 100 mls/hr Insulin Glargine (Lantus) 10 unit SC HS [facility] Last Admin: 11/20/16 21:48 Dose: 10 units Insulin Human Regular (Novolin R) 0 unit SC Q6H [facility] PRN Reason: Protocol Last Admin: 11/21/16 12:45 Dose: Not Given Methylprednisolone (Solu-Medrol) 40 mg IVP Q12 [facility] Last Admin: 11/21/16 09:16 Dose: 40 mg Rosuvastatin Calcium (Crestor) 10 mg PO [facility] Last Admin: 11/20/16 21:45 Dose: 10 mg Saccharomyces Boulardii (Florastor) 250 mg PO BID [facility] Last Admin: 11/21/16 09:16 Dose: 250 mg - Labs Labs: 11/21/16 06:22 11/21/16 06:22 PT 11.5 SECONDS (9.7-12.2) 11/16/16 06:08 INR 1.0 11/16/16 06:08 APTT 31 SECONDS (21-34) 11/16/16 06:08 - Constitutional Appears: No Acute Distress - Head Exam Head Exam: NORMAL INSPECTION - ENT Exam ENT Exam: Mucous Membranes Moist - Respiratory Exam Respiratory Exam: Decreased Breath Sounds (left lung ) - Cardiovascular Exam Cardiovascular Exam: REGULAR RHYTHM, +S1, +S2 - GI/Abdominal Exam GI & Abdominal Exam: Soft, Normal Bowel Sounds - Extremities Exam Additional comments: bilateral lower extremity amputation. - Neurological Exam Neurological Exam: Awake. absent: Oriented x3 (oriented to person) - Skin Skin Exam: Dry, Intact, Warm Assessment and Plan - Assessment and Plan (Free Text) Plan: 1.) Acute respiratory failure Intubated in the ED on admission PH: 7.04, CO2: 124 on admission history of COPD Pulmonary consult (Dr. Quach)--->help appreciated--taper off steroids Duonebs 3ml INH RQ8 HR Solumedrol 40mg IVP Q 12 hours Extubation 11/18 Ordered for chest xray tomorrow. Chest xray (11/15/16): possible small left pleural effusion. Line and tubes are unchanged Chest Xray 11/16/16): No active disease Chest Xray (11/21/16): Interval near complete opacification of the left opal thorax. Suggestive for lung collapse and or pleural effusion. - Bronchoscope performed (Dr. Quach) 11/21/16): Thick secretions were aspirated and mucomyst 2cc was infused. 2.) Multi-drug resistant Klebsiella pneumonia Sputum culture (11/18/16): Klebsiella pneumoniae-->on Tigecycline Sputum culture (11/16/16): Klebsiella pneumoniae Infectious disease (Dr. Anne) on board-->help appreciated Tigeyclcine 50mg IV 12 hours (Active since 11/19/16); changed fro,m Maxipime 1 gram IV Q 24hours Has PICC alexandre Contact precautions 3.) Leukocytosis Sputum culture (11/18/16): Klebsiella pneumoniae-->on Tigecycline Sputum culture (11/16/16): Klebsiella pneumoniae Infectious disease (Dr. Anne) on board-->help appreciated Tigeyclcine 50mg IV 12 hours (Active since 11/19/16); changed fro,m Maxipime 1 gram IV Q 24hours Has PICC alex[place]re Contact precautions May need repeat cultures if continues to uptrend Ordered for repeat chest xray tomorrow Blood cultures (11/14/16): no growth X 5days Urine culture (11/14/16): no growth MRSA (11/15/16): MRSA not detected Blood culture (11/16/16): no growth after 3 days 11/16/16: No salmonella, shigella, or campylobacter Urine culture: no growth Florastor 250mg PO bid C dif: negative has bahena, PICC line, and rectocel 4.) Chronic Obstructive Pulmonary Disease Pulmonary Consult (Dr. Quach)-->on board help appreciated-->taper steroids Solumdedrol 40mg IV Q 12hours Duonebs 3ml INH RQ8HR Order for chest xray tomorrow 5.) Hyperlipidemia Lipid panel: TG mildly elevated Crestor 10mg POqHS 6.) Congestive Heart Failure Echocardiogram (10/02/16): left ventricle systolic function is normal, EF: 65-70% , no aortic regurgitation is present, mitral regurgitation is mild, mild trciuspid regurgitation, mild pulmonary hypertension, mild pulmonic valvular regurgitation patient recently started on dialysis about 2 weeks ago Crestor 10mg POqHS Aspirin 81mg PO daily Coreg 12.5mg PO Q12 7.) Diabetes Accuchecks Q6H insulin sliding scale subq6H hgba1c: 5.0 controlled lantus 10 units subqHS Neurotonin 100mg PO tid 8.) End Stage Renal Disease on Dialysis Nephrology consult, Dr. Saeed, help appreciated Patient recently started on dialysis about 2 weeks ago at [facility] per review of EMR Dialysis: T/[facility]/Sat 9.) Hypertension Monitor blood pressure Coreg 12.5mg PO Q12 10.) Thrombocytopenia d/c heparin 5000 units subq 12 hours-->ordered for heparin induced thrombocytopenia Florastor 250mg PO bid 11.) Loose Stool pepcid 20mg IVq daily Blood cultures (11/14/16): no growth X 4 days X2 Urine culture (11/14/16): no growth MRSA (11/15/16): MRSA not detected Blood culture (11/16/16): no growth after 48 houts 11/16/16: No salmonella, shigella, or campylobacter Urine culture: no growth Florastor 250mg PO bid C dif: negative f/u Repeat C. Diff 12.) Prophylaxis Restarted heparin (11/21/16) Pepcid 20mg IV q daily turnq2 hours wound care
[2016-11-21] MEDS ORDERED: Lidocaine 2% Inj (20ml) ONE (16:05)
[2016-11-21] MEDS ORDERED: EPINEPHrine 1 mg/ml (1:1000) Inj ONE (16:06)
[2016-11-21] MEDS ORDERED: Propofol 10 mg/ml Inj (20 ML) ONE ×2 (16:15→16:18)
--- NOTE | 2016-11-21 16:20 | CP.PCM.PN ---
Subjective - Date & Time of Evaluation Date of Evaluation: 11/21/16 Time of Evaluation: 08:00 - Subjective Subjective: extubated lethargic nad Objective - Vital Signs/Intake and Output Vital Signs (last 24 hours): Temp Pulse Resp BP Pulse Ox 98.2 F 90 15 115/95 H 100 11/21/16 12:00 11/21/16 15:24 11/21/16 15:24 11/21/16 15:24 11/21/16 15:24 Intake and Output: 11/21/16 11/21/16 06:59 18:59 Intake Total 100 170 Output Total 450 Balance -350 170 - Medications Medications: Current Medications Acetylcysteine (Acetylcysteine 20%) 4 ml INH RQ6 [facility] Last Admin: 11/21/16 13:37 Dose: 4 ml Albuterol/Ipratropium (Duoneb 3 Mg/0.5 Mg (3 Ml) Ud) 3 ml INH RQ6 [facility] Last Admin: 11/21/16 13:37 Dose: 3 ml Amlodipine Besylate (Norvasc) 5 mg PO DAILY [facility] Last Admin: 11/21/16 09:16 Dose: 5 mg Aspirin (Aspirin Chewable) 81 mg NG DAILY [facility] Last Admin: 11/21/16 09:16 Dose: 81 mg Carvedilol (Coreg) 25 mg PO Q12 [facility] Last Admin: 11/21/16 09:16 Dose: 25 mg Dorzolamide HCl (Trusopt) 0 ml OU BID [facility] Last Admin: 11/21/16 09:15 Dose: 1 drop Famotidine (Pepcid) 20 mg IVP DAILY [facility] Last Admin: 11/21/16 09:16 Dose: 20 mg Gabapentin (Neurontin) 100 mg PO TID [facility] Last Admin: 11/21/16 13:40 Dose: 100 mg Heparin Sodium (Porcine) (Heparin) 5,000 units SC Q8 [facility] Hydralazine HCl (Apresoline) 10 mg IVP Q6H PRN PRN Reason: SBP above 180 mm Hg Last Admin: 11/20/16 11:47 Dose: 10 mg Tigecycline 50 mg/ Sodium (Chloride) 100 mls @ 100 mls/hr IVPB Q12H [facility] Last Admin: 11/21/16 09:17 Dose: 100 mls/hr Insulin Glargine (Lantus) 10 unit SC HS [facility] Last Admin: 11/20/16 21:48 Dose: 10 units Insulin Human Regular (Novolin R) 0 unit SC Q6H [facility] PRN Reason: Protocol Last Admin: 11/21/16 12:45 Dose: Not Given Methylprednisolone (Solu-Medrol) 40 mg IVP Q12 [facility] Last Admin: 11/21/16 09:16 Dose: 40 mg Rosuvastatin Calcium (Crestor) 10 mg PO HS [facility] Last Admin: 11/20/16 21:45 Dose: 10 mg Saccharomyces Boulardii (Florastor) 250 mg PO BID [facility] Last Admin: 11/21/16 09:16 Dose: 250 mg - Labs Labs: 11/21/16 06:22 11/21/16 06:22 PT 11.5 SECONDS (9.7-12.2) 11/16/16 06:08 INR 1.0 11/16/16 06:08 APTT 31 SECONDS (21-34) 11/16/16 06:08 - Constitutional Appears: Non-toxic, Chronically Ill - Eye Exam Eye Exam: PERRL. absent: Scleral icterus - ENT Exam ENT Exam: Mucous Membranes Dry, Normal External Ear Exam - Neck Exam Neck Exam: absent: Lymphadenopathy - Respiratory Exam Respiratory Exam: Decreased Breath Sounds, Rhonchi Assessment and Plan (1) Acute respiratory failure Status: Acute (2) COPD (chronic obstructive pulmonary disease) Status: Chronic (3) ESRD (end stage renal disease) on dialysis Status: Chronic (4) Congestive heart failure Status: Chronic (5) Diabetes mellitus Status: Chronic (6) HTN (hypertension) Status: Chronic
--- NOTE | 2016-11-21 17:34 | CP.PCM.PN ---
Subjective - Date & Time of Evaluation Date of Evaluation: 11/21/16 Time of Evaluation: 09:00 - Subjective Subjective: patient seen and examined. Lying comfortably in no acute distress Saturation is100% Chest x-ray showed left lung collapse/atelectasis Patient mental status same with poor cough reflex Objective - Vital Signs/Intake and Output Vital Signs (last 24 hours): Temp Pulse Resp BP Pulse Ox 99 F 82 23 131/34 L 98 11/21/16 16:00 11/21/16 17:23 11/21/16 17:23 11/21/16 17:23 11/21/16 17:23 Intake and Output: 11/21/16 11/21/16 06:59 18:59 Intake Total 100 170 Output Total 450 Balance -350 170 - Medications Medications: Current Medications Acetylcysteine (Acetylcysteine 20%) 4 ml INH RQ6 [facility] Last Admin: 11/21/16 13:37 Dose: 4 ml Albuterol/Ipratropium (Duoneb 3 Mg/0.5 Mg (3 Ml) Ud) 3 ml INH RQ6 [facility] Last Admin: 11/21/16 13:37 Dose: 3 ml Amlodipine Besylate (Norvasc) 5 mg PO DAILY [facility] Last Admin: 11/21/16 09:16 Dose: 5 mg Aspirin (Aspirin Chewable) 81 mg NG DAILY [facility] Last Admin: 11/21/16 09:16 Dose: 81 mg Carvedilol (Coreg) 25 mg PO Q12 [facility] Last Admin: 11/21/16 09:16 Dose: 25 mg Dorzolamide HCl (Trusopt) 0 ml OU BID [facility] Last Admin: 11/21/16 09:15 Dose: 1 drop Famotidine (Pepcid) 20 mg IVP DAILY [facility] Last Admin: 11/21/16 09:16 Dose: 20 mg Gabapentin (Neurontin) 100 mg PO TID [facility] Last Admin: 11/21/16 13:40 Dose: 100 mg Heparin Sodium (Porcine) (Heparin) 5,000 units SC Q8 [facility] Hydralazine HCl (Apresoline) 10 mg IVP Q6H PRN PRN Reason: SBP above 180 mm Hg Last Admin: 11/20/16 11:47 Dose: 10 mg Tigecycline 50 mg/ Sodium (Chloride) 100 mls @ 100 mls/hr IVPB Q12H [facility] Last Admin: 11/21/16 09:17 Dose: 100 mls/hr Insulin Glargine (Lantus) 10 unit SC HS [facility] Last Admin: 11/20/16 21:48 Dose: 10 units Insulin Human Regular (Novolin R) 0 unit SC Q6H [facility] PRN Reason: Protocol Last Admin: 11/21/16 17:31 Dose: Not Given Methylprednisolone (Solu-Medrol) 40 mg IVP Q12 [facility] Last Admin: 11/21/16 09:16 Dose: 40 mg Rosuvastatin Calcium (Crestor) 10 mg PO HS [facility] Last Admin: 11/20/16 21:45 Dose: 10 mg Saccharomyces Boulardii (Florastor) 250 mg PO BID [facility] Last Admin: 11/21/16 09:16 Dose: 250 mg - Labs Labs: 11/21/16 06:22 11/21/16 06:22 PT 11.5 SECONDS (9.7-12.2) 11/16/16 06:08 INR 1.0 11/16/16 06:08 APTT 31 SECONDS (21-34) 11/16/16 06:08 - Head Exam Head Exam: ATRAUMATIC, NORMOCEPHALIC - Eye Exam Eye Exam: Normal appearance - ENT Exam ENT Exam: Mucous Membranes Moist - Neck Exam Neck Exam: Normal Inspection - Respiratory Exam Respiratory Exam: Decreased Breath Sounds - Cardiovascular Exam Cardiovascular Exam: REGULAR RHYTHM - GI/Abdominal Exam GI & Abdominal Exam: Soft, Normal Bowel Sounds - Extremities Exam Extremities Exam: Normal Inspection Assessment and Plan (1) Acute respiratory failure Assessment & Plan: status post extubation few days ago and lying comfortably in no acute distress Status post bronchoscopy and bronchoalveolar lavage for left lung collapse, copious amount of thick purulent secretions Partial reexpansion Continue nebulizer treatment and Mucomyst Continue antibio and chest PT Status: Acute (2) Hypokalemia Status: Acute (3) COPD (chronic obstructive pulmonary disease) Status: Chronic (4) ESRD (end stage renal disease) on dialysis Status: Chronic
--- NOTE | 2016-11-21 17:36 | RAD ---
HISTORY: s/p bronchoscopy COMPARISON: Chest radiograph 10:47 a.m. FINDINGS: LUNGS: In situ NGT, the tip of which has not been included on this film however distal aspect appears to lie below EG junction. Right IJ dialysis catheter with tips in the SVC. Left sided PICC line with tip in the brachiocephalic/SVC junction. Marked improvement previously noted near complete opacification left opal thorax with improved aeration in the left upper and to a lesser degree left midlung field. Improved atelectasis right lung base. Questionable left-sided effusion PLEURA: As above. No apparent pneumothorax CARDIOVASCULAR: Heart size difficult to assess due to silhouetting left cardiac border OSSEOUS STRUCTURES: No significant abnormalities. VISUALIZED UPPER ABDOMEN: Normal. OTHER FINDINGS: None. IMPRESSION: In situ support lines and tubes as above. Marked improvement previously noted near complete opacification left opal thorax with improved aeration in the left upper and to a lesser degree left midlung field. Improved atelectasis right lung base. Questionable left-sided effusion
--- NOTE | 2016-11-21 19:02 | CP.PCM.PN ---
Subjective - Date & Time of Evaluation Date of Evaluation: 11/21/16 Time of Evaluation: 17:00 - Subjective Subjective: FIBEROPTIC PROCEDURAL NOTE Fiberoptic procedure was done after consent was received from son. Risks and benefits explained in great detail. Procedure was done under sedation by anesthesiologist. Bronchoscope was passed through right nostril into the throat; copious amounts of purulent secretions aspirated. Later the bronchoscope was passed into the trachea which was filled with thick purulent secretions- aspirated. Bronchoscope passed to right and then left side. Thick secretions were aspirated and mucomyst 2cc was infused. Due to thickness of purulent secretions, unable to suction out completely. Patient tolerated procedure well. CXR showed partial reexpansion of left lung. Bronchial washings sent for studies. Objective - Vital Signs/Intake and Output Vital Signs (last 24 hours): Temp Pulse Resp BP Pulse Ox 99 F 82 23 131/34 L 98 11/21/16 16:00 11/21/16 17:23 11/21/16 17:23 11/21/16 17:23 11/21/16 17:23 Intake and Output: 11/21/16 11/21/16 06:59 18:59 Intake Total 100 170 Output Total 450 Balance -350 170 - Medications Medications: Current Medications Acetylcysteine (Acetylcysteine 20%) 4 ml INH RQ6 [facility] Last Admin: 11/21/16 13:37 Dose: 4 ml Albuterol/Ipratropium (Duoneb 3 Mg/0.5 Mg (3 Ml) Ud) 3 ml INH RQ6 [facility] Last Admin: 11/21/16 13:37 Dose: 3 ml Amlodipine Besylate (Norvasc) 5 mg PO DAILY [facility] Last Admin: 11/21/16 09:16 Dose: 5 mg Aspirin (Aspirin Chewable) 81 mg NG DAILY [facility] Last Admin: 11/21/16 09:16 Dose: 81 mg Carvedilol (Coreg) 25 mg PO Q12 [facility] Last Admin: 11/21/16 09:16 Dose: 25 mg Dorzolamide HCl (Trusopt) 0 ml OU BID [facility] Last Admin: 11/21/16 17:47 Dose: 1 drop Famotidine (Pepcid) 20 mg IVP DAILY [facility] Last Admin: 11/21/16 09:16 Dose: 20 mg Gabapentin (Neurontin) 100 mg PO TID [facility] Last Admin: 11/21/16 17:47 Dose: 100 mg Heparin Sodium (Porcine) (Heparin) 5,000 units SC Q8 [facility] Hydralazine HCl (Apresoline) 10 mg IVP Q6H PRN PRN Reason: SBP above 180 mm Hg Last Admin: 11/20/16 11:47 Dose: 10 mg Tigecycline 50 mg/ Sodium (Chloride) 100 mls @ 100 mls/hr IVPB Q12H [facility] Last Admin: 11/21/16 09:17 Dose: 100 mls/hr Insulin Glargine (Lantus) 10 unit SC HS [facility] Last Admin: 11/20/16 21:48 Dose: 10 units Insulin Human Regular (Novolin R) 0 unit SC Q6H [facility] PRN Reason: Protocol Last Admin: 11/21/16 17:31 Dose: Not Given Methylprednisolone (Solu-Medrol) 40 mg IVP Q12 [facility] Last Admin: 11/21/16 09:16 Dose: 40 mg Rosuvastatin Calcium (Crestor) 10 mg PO HS [facility] Last Admin: 11/20/16 21:45 Dose: 10 mg Saccharomyces Boulardii (Florastor) 250 mg PO BID [facility] Last Admin: 11/21/16 17:47 Dose: 250 mg - Labs Labs: 11/21/16 06:22 11/21/16 06:22 PT 11.5 SECONDS (9.7-12.2) 11/16/16 06:08 INR 1.0 11/16/16 06:08 APTT 31 SECONDS (21-34) 11/16/16 06:08 Assessment and Plan (1) Acute respiratory failure Status: Acute (2) Hypokalemia Status: Acute (3) COPD (chronic obstructive pulmonary disease) Status: Chronic (4) ESRD (end stage renal disease) on dialysis Status: Chronic
--- NOTE | 2016-11-21 19:27 | CP.PCM.PN ---
Subjective - Date & Time of Evaluation Date of Evaluation: 11/21/16 Time of Evaluation: 19:27 - Subjective Subjective: pt seen and examined by me, no complaints + cough, + loose BM Objective - Vital Signs/Intake and Output Vital Signs (last 24 hours): Temp Pulse Resp BP Pulse Ox 99 F 89 21 156/42 H 98 11/21/16 16:00 11/21/16 19:00 11/21/16 19:00 11/21/16 18:23 11/21/16 19:00 Intake and Output: 11/21/16 11/22/16 18:59 06:59 Intake Total 600 Output Total 200 Balance 400 - Medications Medications: Current Medications Acetylcysteine (Acetylcysteine 20%) 4 ml INH RQ6 [facility] Last Admin: 11/21/16 19:19 Dose: 4 ml Albuterol/Ipratropium (Duoneb 3 Mg/0.5 Mg (3 Ml) Ud) 3 ml INH RQ6 [facility] Last Admin: 11/21/16 19:19 Dose: 3 ml Amlodipine Besylate (Norvasc) 5 mg PO DAILY [facility] Last Admin: 11/21/16 09:16 Dose: 5 mg Aspirin (Aspirin Chewable) 81 mg NG DAILY [facility] Last Admin: 11/21/16 09:16 Dose: 81 mg Carvedilol (Coreg) 25 mg PO Q12 [facility] Last Admin: 11/21/16 09:16 Dose: 25 mg Dorzolamide HCl (Trusopt) 0 ml OU BID [facility] Last Admin: 11/21/16 17:47 Dose: 1 drop Famotidine (Pepcid) 20 mg IVP DAILY [facility] Last Admin: 11/21/16 09:16 Dose: 20 mg Gabapentin (Neurontin) 100 mg PO TID [facility] Last Admin: 11/21/16 17:47 Dose: 100 mg Heparin Sodium (Porcine) (Heparin) 5,000 units SC Q8 [facility] Hydralazine HCl (Apresoline) 10 mg IVP Q6H PRN PRN Reason: SBP above 180 mm Hg Last Admin: 11/20/16 11:47 Dose: 10 mg Tigecycline 50 mg/ Sodium (Chloride) 100 mls @ 100 mls/hr IVPB Q12H [facility] Last Admin: 11/21/16 09:17 Dose: 100 mls/hr Insulin Glargine (Lantus) 10 unit SC HS [facility] Last Admin: 11/20/16 21:48 Dose: 10 units Insulin Human Regular (Novolin R) 0 unit SC Q6H [facility] PRN Reason: Protocol Last Admin: 11/21/16 17:31 Dose: Not Given Methylprednisolone (Solu-Medrol) 40 mg IVP Q12 [facility] Last Admin: 11/21/16 09:16 Dose: 40 mg Rosuvastatin Calcium (Crestor) 10 mg PO HS [facility] Last Admin: 11/20/16 21:45 Dose: 10 mg Saccharomyces Boulardii (Florastor) 250 mg PO BID [facility] Last Admin: 11/21/16 17:47 Dose: 250 mg - Labs Labs: 11/21/16 06:22 11/21/16 06:22 PT 11.5 SECONDS (9.7-12.2) 11/16/16 06:08 INR 1.0 11/16/16 06:08 APTT 31 SECONDS (21-34) 11/16/16 06:08 - Constitutional Appears: Well, No Acute Distress - Head Exam Head Exam: ATRAUMATIC, NORMAL INSPECTION, NORMOCEPHALIC - Eye Exam Eye Exam: EOMI, Normal appearance, PERRL Pupil Exam: NORMAL ACCOMODATION - ENT Exam ENT Exam: Mucous Membranes Moist - Neck Exam Neck Exam: Full ROM, Lymphadenopathy, Normal Inspection - Respiratory Exam Respiratory Exam: Decreased Breath Sounds, NORMAL BREATHING PATTERN - Cardiovascular Exam Cardiovascular Exam: REGULAR RHYTHM, +S1, +S2 - GI/Abdominal Exam GI & Abdominal Exam: Soft, Tenderness, Normal Bowel Sounds Additional comments: mild diffuse lower abdominal tenderness+ - Rectal Exam Rectal Exam: Deferred Additional comments: deferred - Extremities Exam Additional comments: b/l AKA - Neurological Exam Neurological Exam: Alert, Awake Additional comments: oriented x 1-2 Assessment and Plan - Assessment and Plan (Free Text) Plan: 61 yo obese HF with h/o htn, dm copd, chf, b/l aka esrd, resp. failure, pneumonia, s/p extubation 1. ESRD, 2. hTN 3. DM 4. pneumonia c/w hemodialysis 3x aweek, TTS c/w iv abx a sper id
[2016-11-21] MEDS: (Lantus) Insulin Glargine, Recombinant SC SCH (22:45)
[2016-11-22] MEDS: Acetylcysteine 20% Inhal Soln (4ml) INH SCH ×4 (02:38→19:45)
[2016-11-22] MEDS: Albuterol-Ipratrop 3 mg / 0.5 (3 ml) UD INH SCH ×4 (02:38→19:45)
[2016-11-22 05:48] LABS: ABG ALLEN TEST POS; ARTERIAL BLOOD GAS HCO3 26.7 mmol/L (21-28); ARTERIAL BLOOD GAS HEMOGLOBIN 11.4 g/dL (11.7-17.4); ARTERIAL BLOOD GAS O2 SAT 99.3 % (95-98); ARTERIAL BLOOD GAS PCO2 46 mm/Hg (35-45); ARTERIAL BLOOD GAS PH 7.39 (7.35-7.45); ARTERIAL BLOOD GAS PO2 144 mm/Hg (80-100); ARTERIAL BLOOD GAS TCO2 29.2 mmol/L (22-28)
[2016-11-22] MEDS: (Novolin R) Insulin Human Regular 100 units/ml vial SC SCH ×3 (06:00→11:48)
[2016-11-22 06:58] LABS: ALBUMIN 2.2 g/dL (3.5-5.0)
[2016-11-22 07:01] LABS: ALB/GLOB RATIO 0.8 (1.0-2.1)
[2016-11-22 07:02] LABS: CALCIUM 7.4 mg/dl (8.6-10.4); MAGNESIUM 2.1 mg/dL (1.6-2.3)
[2016-11-22 07:04] LABS: BASO % 0.1 % (0.0-2.0); HEMOGLOBIN 11.3 g/dL (11.0-16.0); LYMPH # 0.9 K/uL (1.0-4.3); MEAN CELL VOLUME 90.1 fL (81.0-99.0); MEAN CORPUSCULAR HEMOGLOBIN 27.8 pg (27.0-31.0); MEAN CORPUSCULAR HGB CONC 30.8 g/dL (33.0-37.0); MONO % 11.2 % (0.0-10.0); NEUT # 14.8 K/uL (1.8-7.0); NEUT % 83.7 % (50.0-75.0); PLATELET COUNT 149 K/uL (130-400); RBC 4.07 Mil/uL (3.80-5.20); RED CELL DISTRIBUTION WIDTH 18.1 % (11.5-14.5); WHITE BLOOD COUNT 17.6 K/uL (4.8-10.8)
[2016-11-22 08:37] LABS: ANISOCYTOSIS SLIGHT; HYPOCHROMIC SLIGHT; LYMPHOCYTE 2 % (20-40); MONOCYTE 6 % (0-10); NEUTROPHIL 92 % (50-75); PLATELET ESTIMATE NORMAL (NORMAL); TOTAL CELLS COUNTED 100
--- NOTE | 2016-11-22 10:18 | RAD ---
HISTORY: s/p bronchoscopy COMPARISON: 11/21/2016. FINDINGS: The right-sided dual lumen central venous catheter terminates in the right atrium. The nasogastric tube terminates in the stomach. The left PICC line terminates in the SVC. LUNGS: Lung markings are accentuated. There is a small left pleural effusion. PLEURA: No significant pleural effusion identified, no pneumothorax apparent. CARDIOVASCULAR: There is persistent severe cardiomegaly. OSSEOUS STRUCTURES: No significant abnormalities. VISUALIZED UPPER ABDOMEN: Normal. OTHER FINDINGS: None. IMPRESSION: Severe cardiomegaly, pulmonary venous congestion and small left pleural effusion. Stable position of lines and nasogastric tube.
[2016-11-22] MEDS: MethylPREDNISolone 40 mg Vial IVP SCH (21:58)
[2016-11-22] MEDS: (Lantus) Insulin Glargine, Recombinant SC SCH (21:59)
[2016-11-23] MEDS: (Novolin R) Insulin Human Regular 100 units/ml vial SC SCH ×4 (00:14→17:40)
[2016-11-23] MEDS: Acetylcysteine 20% Inhal Soln (4ml) INH SCH ×4 (01:55→20:06)
[2016-11-23] MEDS: Albuterol-Ipratrop 3 mg / 0.5 (3 ml) UD INH SCH ×4 (01:55→20:06)
[2016-11-23 07:35] LABS: BASO % 0.4 % (0.0-2.0); HEMOGLOBIN 11.8 g/dL (11.0-16.0); LYMPH # 0.4 K/uL (1.0-4.3); LYMPH % 3.7 % (20.0-40.0); MEAN CELL VOLUME 89.5 fL (81.0-99.0); MEAN CORPUSCULAR HEMOGLOBIN 28.4 pg (27.0-31.0); MEAN CORPUSCULAR HGB CONC 31.7 g/dL (33.0-37.0); MEAN PLATELET VOLUME 11.5 fL (7.2-11.7); MONO # 0.5 K/uL (0.0-0.8); MONO % 4.7 % (0.0-10.0); NEUT # 9.3 K/uL (1.8-7.0); NEUT % 91.2 % (50.0-75.0); PLATELET COUNT 147 K/uL (130-400); RBC 4.14 Mil/uL (3.80-5.20); RED CELL DISTRIBUTION WIDTH 17.5 % (11.5-14.5); WHITE BLOOD COUNT 10.1 K/uL (4.8-10.8)
[2016-11-23 07:45] LABS: ALBUMIN 2.3 g/dL (3.5-5.0)
[2016-11-23 07:48] LABS: ALB/GLOB RATIO 0.8 (1.0-2.1)
[2016-11-23 07:49] LABS: CALCIUM 7.4 mg/dl (8.6-10.4); MAGNESIUM 2.1 mg/dL (1.6-2.3)
[2016-11-23 09:22] LABS: ANISOCYTOSIS SLIGHT; HYPOCHROMIC SLIGHT; LYMPHOCYTE 2 % (20-40); MONOCYTE 4 % (0-10); NEUTROPHIL 94 % (50-75); PLATELET ESTIMATE NORMAL (NORMAL); TOTAL CELLS COUNTED 100
[2016-11-23] MEDS: MethylPREDNISolone 40 mg Vial IVP SCH ×2 (10:13→21:20)
[2016-11-23] MEDS: Saccharomyces Boulardi 250 mg Cap PO SCH ×2 (10:16→17:41)
[2016-11-23] MEDS: Dorzolamide 2% Opht Sol 10ml OU SCH ×2 (10:16→17:42)
--- NOTE | 2016-11-23 10:17 | CP.PCM.PN ---
Subjective - Date & Time of Evaluation Date of Evaluation: 11/22/16 Time of Evaluation: 21:07 - Subjective Subjective: patient seen earlier in day documentation delayed due to malfunction of meditech confused wants to pull out tubes ng tube has ongoing diarrhea not able to answer questions due to confusion Objective - Vital Signs/Intake and Output Vital Signs (last 24 hours): Temp Pulse Resp BP Pulse Ox 99.1 F 98 H 18 123/70 98 11/23/16 04:00 11/23/16 04:00 11/23/16 04:00 11/23/16 10:14 11/23/16 04:00 Intake and Output: 11/23/16 11/23/16 06:59 18:59 Intake Total 25 Output Total 250 Balance -225 - Medications Medications: Current Medications Acetylcysteine (Acetylcysteine 20%) 4 ml INH RQ6 [facility] Last Admin: 11/23/16 07:59 Dose: 4 ml Albuterol/Ipratropium (Duoneb 3 Mg/0.5 Mg (3 Ml) Ud) 3 ml INH RQ6 [facility] Last Admin: 11/23/16 07:59 Dose: 3 ml Amlodipine Besylate (Norvasc) 5 mg PO DAILY [facility] Last Admin: 11/23/16 10:15 Dose: 5 mg Aspirin (Aspirin Chewable) 81 mg NG DAILY [facility] Last Admin: 11/23/16 10:14 Dose: 81 mg Carvedilol (Coreg) 25 mg PO Q12 [facility] Last Admin: 11/23/16 10:14 Dose: 25 mg Dorzolamide HCl (Trusopt) 0 ml OU BID [facility] Last Admin: 11/23/16 10:16 Dose: 1 drop Famotidine (Pepcid) 20 mg IVP DAILY [facility] Last Admin: 11/23/16 10:13 Dose: 20 mg Gabapentin (Neurontin) 100 mg PO TID [facility] Last Admin: 11/23/16 10:14 Dose: 100 mg Heparin Sodium (Porcine) (Heparin) 5,000 units SC Q8 [facility] Last Admin: 11/23/16 06:08 Dose: 5,000 units Hydralazine HCl (Apresoline) 10 mg IVP Q6H PRN PRN Reason: SBP above 180 mm Hg Last Admin: 11/20/16 11:47 Dose: 10 mg Tigecycline 50 mg/ Sodium (Chloride) 100 mls @ 100 mls/hr IVPB Q12H [facility] Last Admin: 11/23/16 10:12 Dose: 100 mls/hr Insulin Glargine (Lantus) 10 unit SC [facility] Last Admin: 11/22/16 21:59 Dose: 10 units Insulin Human Regular (Novolin R) 0 unit SC Q6H [facility] PRN Reason: Protocol Last Admin: 11/23/16 06:09 Dose: 2 unit Methylprednisolone (Solu-Medrol) 40 mg IVP Q12 [facility] Last Admin: 11/23/16 10:13 Dose: 40 mg Rosuvastatin Calcium (Crestor) 10 mg PO [facility] Last Admin: 11/22/16 21:56 Dose: 10 mg Saccharomyces Boulardii (Florastor) 250 mg PO BID [facility] Last Admin: 11/23/16 10:16 Dose: 250 mg - Labs Labs: 11/23/16 07:33 11/23/16 07:33 PT 11.5 SECONDS (9.7-12.2) 11/16/16 06:08 INR 1.0 11/16/16 06:08 APTT 31 SECONDS (21-34) 11/16/16 06:08 - Constitutional Appears: Non-toxic, No Acute Distress, Confused, Chronically Ill - Head Exam Head Exam: ATRAUMATIC - Respiratory Exam Respiratory Exam: Rhonchi, Wheezes. absent: Clear to Ausculation Bilateral, Rales, Respiratory Distress, NORMAL BREATHING PATTERN - Cardiovascular Exam Cardiovascular Exam: REGULAR RHYTHM, +S1, +S2 - GI/Abdominal Exam GI & Abdominal Exam: Soft, Normal Bowel Sounds, Organomegaly. absent: Tenderness Additional comments: obese - Extremities Exam Additional comments: b/l bka - Neurological Exam Neurological Exam: Alert, Awake. absent: Oriented x3 Assessment and Plan - Assessment and Plan (Free Text) Assessment: 1.) Acute respiratory failure now resolved extubated on 11/18 Bronch for mucus plug Intubated in the ED on admission PH: 7.04, CO2: 124 on admission history of COPD Pulmonary consult (Dr. Quach)--->help appreciated--taper off steroids Duonebs 3ml INH RQ8 [facility] Solumedrol 40mg IVP Q 12 hours Extubation 11/18 Ordered for chest xray tomorrow. Chest xray (11/15/16): possible small left pleural effusion. Line and tubes are unchanged Chest Xray 11/16/16): No active disease Chest Xray (11/21/16): Interval near complete opacification of the left opal thorax. Suggestive for lung collapse and or pleural effusion. - Bronchoscope performed (Dr. Quach) 11/21/16): Thick secretions were aspirated and mucomyst 2cc was infused. 2.) Multi-drug resistant Klebsiella pneumonia Sputum culture (11/18/16): Klebsiella pneumoniae-->on Tigecycline Sputum culture (11/16/16): Klebsiella pneumoniae Infectious disease (Dr. Anne) on board-->help appreciated Tigeyclcine 50mg IV 12 hours (Active since 11/19/16); changed fro,m Maxipime 1 gram IV Q 24hours Has PICC alexandre Contact precautions 3.) Leukocytosis Sputum culture (11/18/16): Klebsiella pneumoniae-->on Tigecycline Sputum culture (11/16/16): Klebsiella pneumoniae Infectious disease (Dr. Anne) on board-->help appreciated Tigeyclcine 50mg IV 12 hours (Active since 11/19/16); changed fro,m Maxipime 1 gram IV Q 24hours Has PICC alexandre Contact precautions May need repeat cultures if continues to uptrend Ordered for repeat chest xray tomorrow Blood cultures (11/14/16): no growth X 5days Urine culture (11/14/16): no growth MRSA (11/15/16): MRSA not detected Blood culture (11/16/16): no growth after 3 days 11/16/16: No salmonella, shigella, or campylobacter Urine culture: no growth Florastor 250mg PO bid C dif: negative has bahena, PICC line, and rectocel 4.) Chronic Obstructive Pulmonary Disease Pulmonary Consult (Dr. Quach)-->on board help appreciated-->taper steroids Solumdedrol 40mg IV Q 12hours Duonebs 3ml INH [id number] Order for chest xray tomorrow 5.) Hyperlipidemia Lipid panel: TG mildly elevated Crestor 10mg POqHS 6.) Congestive Heart Failure Echocardiogram (10/02/16): left ventricle systolic function is normal, EF: 65-70% , no aortic regurgitation is present, mitral regurgitation is mild, mild trciuspid regurgitation, mild pulmonary hypertension, mild pulmonic valvular regurgitation patient recently started on dialysis about 2 weeks ago Crestor 10mg POqHS Aspirin 81mg PO daily Coreg 12.5mg PO Q12 7.) Diabetes Accuchecks Q6H insulin sliding scale subq6H hgba1c: 5.0 controlled lantus 10 units subqHS Neurotonin 100mg PO tid 8.) End Stage Renal Disease on Dialysis Nephrology consult, Dr. Saeed, help appreciated Patient recently started on dialysis about 2 weeks ago at [place] per review of EMR Dialysis: T/[facility]/Sat 9.) Hypertension Monitor blood pressure Coreg 12.5mg PO Q12 10.) Thrombocytopenia d/c heparin 5000 units subq 12 hours-->ordered for heparin induced thrombocytopenia Florastor 250mg PO bid 11.) Loose Stool/diarrhea c diff neg pepcid 20mg IVq daily Blood cultures (11/14/16): no growth X 4 days X2 Urine culture (11/14/16): no growth MRSA (11/15/16): MRSA not detected Blood culture (11/16/16): no growth after 48 houts 11/16/16: No salmonella, shigella, or campylobacter Urine culture: no growth Florastor 250mg PO bid C dif: negative f/u Repeat C. Diff 12.) Prophylaxis Restarted heparin (11/21/16) Pepcid 20mg IV q daily turnq2 hours wound care
--- NOTE | 2016-11-23 10:18 | CP.PCM.PN ---
Subjective - Date & Time of Evaluation Date of Evaluation: 11/23/16 Time of Evaluation: 17:31 - Subjective Subjective: confused no sob still with diarrhea Objective - Vital Signs/Intake and Output Vital Signs (last 24 hours): Temp Pulse Resp BP Pulse Ox 99.1 F 98 H 18 123/70 98 11/23/16 04:00 11/23/16 04:00 11/23/16 04:00 11/23/16 10:14 11/23/16 04:00 Intake and Output: 11/23/16 11/23/16 06:59 18:59 Intake Total 25 Output Total 250 Balance -225 - Medications Medications: Current Medications Acetylcysteine (Acetylcysteine 20%) 4 ml INH RQ6 [facility] Last Admin: 11/23/16 07:59 Dose: 4 ml Albuterol/Ipratropium (Duoneb 3 Mg/0.5 Mg (3 Ml) Ud) 3 ml INH RQ6 [facility] Last Admin: 11/23/16 07:59 Dose: 3 ml Amlodipine Besylate (Norvasc) 5 mg PO DAILY [facility] Last Admin: 11/23/16 10:15 Dose: 5 mg Aspirin (Aspirin Chewable) 81 mg NG DAILY [facility] Last Admin: 11/23/16 10:14 Dose: 81 mg Carvedilol (Coreg) 25 mg PO Q12 [facility] Last Admin: 11/23/16 10:14 Dose: 25 mg Dorzolamide HCl (Trusopt) 0 ml OU BID [facility] Last Admin: 11/23/16 10:16 Dose: 1 drop Famotidine (Pepcid) 20 mg IVP DAILY [facility] Last Admin: 11/23/16 10:13 Dose: 20 mg Gabapentin (Neurontin) 100 mg PO TID [facility] Last Admin: 11/23/16 10:14 Dose: 100 mg Heparin Sodium (Porcine) (Heparin) 5,000 units SC Q8 [facility] Last Admin: 11/23/16 06:08 Dose: 5,000 units Hydralazine HCl (Apresoline) 10 mg IVP Q6H PRN PRN Reason: SBP above 180 mm Hg Last Admin: 11/20/16 11:47 Dose: 10 mg Tigecycline 50 mg/ Sodium (Chloride) 100 mls @ 100 mls/hr IVPB Q12H [facility] Last Admin: 11/23/16 10:12 Dose: 100 mls/hr Insulin Glargine (Lantus) 10 unit SC HS [facility] Last Admin: 11/22/16 21:59 Dose: 10 units Insulin Human Regular (Novolin R) 0 unit SC Q6H [facility] PRN Reason: Protocol Last Admin: 11/23/16 06:09 Dose: 2 unit Methylprednisolone (Solu-Medrol) 40 mg IVP Q12 [facility] Last Admin: 11/23/16 10:13 Dose: 40 mg Rosuvastatin Calcium (Crestor) 10 mg PO [facility] Last Admin: 11/22/16 21:56 Dose: 10 mg Saccharomyces Boulardii (Florastor) 250 mg PO BID [facility] Last Admin: 11/23/16 10:16 Dose: 250 mg - Labs Labs: 11/23/16 07:33 11/23/16 07:33 PT 11.5 SECONDS (9.7-12.2) 11/16/16 06:08 INR 1.0 11/16/16 06:08 APTT 31 SECONDS (21-34) 11/16/16 06:08 - Constitutional Appears: Non-toxic, No Acute Distress, Confused - Head Exam Head Exam: ATRAUMATIC - ENT Exam ENT Exam: Mucous Membranes Dry Additional comments: ng tube - Respiratory Exam Respiratory Exam: Rhonchi, Wheezes, NORMAL BREATHING PATTERN. absent: Accessory Muscle Use, Clear to Ausculation Bilateral, Respiratory Distress, Stridor - Cardiovascular Exam Cardiovascular Exam: REGULAR RHYTHM, +S1, +S2 - GI/Abdominal Exam GI & Abdominal Exam: Soft, Normal Bowel Sounds. absent: Tenderness, Organomegaly Additional comments: obese - Extremities Exam Additional comments: b/l bka - Neurological Exam Neurological Exam: Alert, Awake. absent: Oriented x3 Assessment and Plan - Assessment and Plan (Free Text) Assessment: 1.) Acute respiratory failure now resolved extubated on 11/18 Bronch for mucus plug Intubated in the ED on admission PH: 7.04, CO2: 124 on admission history of COPD Pulmonary consult (Dr. Quach)--->help appreciated--taper off steroids Duonebs 3ml INH RQ8 HR Solumedrol 40mg IVP Q 12 hours Extubation 11/18 Ordered for chest xray tomorrow. Chest xray (11/15/16): possible small left pleural effusion. Line and tubes are unchanged Chest Xray 11/16/16): No active disease Chest Xray (11/21/16): Interval near complete opacification of the left opal thorax. Suggestive for lung collapse and or pleural effusion. - Bronchoscope performed (Dr. Quach) 11/21/16): Thick secretions were aspirated and mucomyst 2cc was infused. 2.) Multi-drug resistant Klebsiella pneumonia Sputum culture (11/18/16): Klebsiella pneumoniae-->on Tigecycline Sputum culture (11/16/16): Klebsiella pneumoniae Infectious disease (Dr. Anne) on board-->help appreciated Tigeyclcine 50mg IV 12 hours (Active since 11/19/16); changed fro,m Maxipime 1 gram IV Q 24hours Has PICC alexandre Contact precautions 3.) Leukocytosis Sputum culture (11/18/16): Klebsiella pneumoniae-->on Tigecycline Sputum culture (11/16/16): Klebsiella pneumoniae Infectious disease (Dr. Anne) on board-->help appreciated Tigeyclcine 50mg IV 12 hours (Active since 11/19/16); changed fro,m Maxipime 1 gram IV Q 24hours Has PICC alexandre Contact precautions May need repeat cultures if continues to uptrend Ordered for repeat chest xray tomorrow Blood cultures (11/14/16): no growth X 5days Urine culture (11/14/16): no growth MRSA (11/15/16): MRSA not detected Blood culture (11/16/16): no growth after 3 days 11/16/16: No salmonella, shigella, or campylobacter Urine culture: no growth Florastor 250mg PO bid C dif: negative has bahena, PICC line, and rectocel 4.) Chronic Obstructive Pulmonary Disease Pulmonary Consult (Dr. Quach)-->on board help appreciated-->taper steroids Solumdedrol 40mg IV Q 12hours Duonebs 3ml INH RQ8HR Order for chest xray tomorrow 5.) Hyperlipidemia Lipid panel: TG mildly elevated Crestor 10mg POqHS 6.) Congestive Heart Failure Echocardiogram (10/02/16): left ventricle systolic function is normal, EF: 65-70% , no aortic regurgitation is present, mitral regurgitation is mild, mild trciuspid regurgitation, mild pulmonary hypertension, mild pulmonic valvular regurgitation patient recently started on dialysis about 2 weeks ago Crestor 10mg POqHS Aspirin 81mg PO daily Coreg 12.5mg PO Q12 7.) Diabetes Accuchecks Q6H insulin sliding scale subq6H hgba1c: 5.0 controlled lantus 10 units subqHS Neurotonin 100mg PO tid 8.) End Stage Renal Disease on Dialysis Nephrology consult, Dr. Saeed, help appreciated Patient recently started on dialysis about 2 weeks ago at [place] per review of EMR Dialysis: T/[facility]/Sat 9.) Hypertension Monitor blood pressure Coreg 12.5mg PO Q12 10.) Thrombocytopenia d/c heparin 5000 units subq 12 hours-->ordered for heparin induced thrombocytopenia Florastor 250mg PO bid 11.) Loose Stool/diarrhea c diff neg pepcid 20mg IVq daily Blood cultures (11/14/16): no growth X 4 days X2 Urine culture (11/14/16): no growth MRSA (11/15/16): MRSA not detected Blood culture (11/16/16): no growth after 48 houts 11/16/16: No salmonella, shigella, or campylobacter Urine culture: no growth Florastor 250mg PO bid C dif: negative f/u Repeat C. Diff 12.) Prophylaxis Restarted heparin (11/21/16) Pepcid 20mg IV q daily turnq2 hours wound care
[2016-11-23] MEDS: (Lantus) Insulin Glargine, Recombinant SC SCH (21:23)
[2016-11-24] MEDS: (Novolin R) Insulin Human Regular 100 units/ml vial SC SCH ×4 (00:44→18:41)
--- NOTE | 2016-11-24 07:19 | CP.PCM.PN ---
Objective - Vital Signs/Intake and Output Vital Signs (last 24 hours): Temp Pulse Resp BP Pulse Ox 98 F 88 15 123/100 H 97 11/24/16 03:00 11/23/16 20:00 11/23/16 19:00 11/23/16 21:19 11/23/16 19:00 Intake and Output: 11/24/16 11/24/16 06:59 18:59 Intake Total 75 Output Total 125 Balance -50 - Medications Medications: Current Medications Acetylcysteine (Acetylcysteine 20%) [address] [facility] Last Admin: 11/23/16 20:06 Dose: 4 ml Albuterol/Ipratropium (Duoneb 3 Mg/0.5 Mg (3 Ml) Ud) [address] [facility] Last Admin: 11/23/16 20:06 Dose: 3 ml Amlodipine Besylate (Norvasc) [address] [facility] Last Admin: 11/23/16 10:15 Dose: 5 mg Aspirin (Aspirin Chewable) [address] [facility] Last Admin: 11/23/16 10:14 Dose: 81 mg Carvedilol (Coreg) [address] [facility] Last Admin: 11/23/16 21:19 Dose: 25 mg Dorzolamide HCl (Trusopt) [address] [facility] Last Admin: 11/23/16 17:42 Dose: 1 drop Famotidine (Pepcid) [address] [facility] Last Admin: 11/23/16 10:13 Dose: 20 mg Gabapentin (Neurontin) [address] [facility] Last Admin: 11/23/16 17:41 Dose: 100 mg Heparin Sodium (Porcine) (Heparin) 5,[address] [facility] Last Admin: 11/24/16 06:19 Dose: 5,000 units Hydralazine HCl (Apresoline) 10 mg IVP Q6H PRN PRN Reason: SBP above 180 mm Hg Last Admin: 11/20/16 11:47 Dose: 10 mg Tigecycline 50 mg/ Sodium (Chloride) 100 mls @ 100 mls/hr IVPB Q12H [facility] Last Admin: 11/23/16 21:22 Dose: 100 mls/hr Insulin Glargine (Lantus) [address] [facility] Last Admin: 11/23/16 21:23 Dose: 10 units Insulin Human Regular (Novolin R) [address] [facility] PRN Reason: Protocol Last Admin: 11/24/16 06:20 Dose: Not Given Methylprednisolone (Solu-Medrol) [address] [facility] Last Admin: 11/23/16 21:20 Dose: 40 mg Rosuvastatin Calcium (Crestor) [address] [facility] Last Admin: 11/23/16 21:20 Dose: 10 mg Saccharomyces Boulardii (Florastor) [address] [facility] Last Admin: 11/23/16 17:41 Dose: 250 mg - Labs Labs: 11/23/16 07:33 11/23/16 07:33 PT 11.5 SECONDS (9.7-12.2) 11/16/16 06:08 INR 1.0 11/16/16 06:08 APTT 31 SECONDS (21-34) 11/16/16 06:08
[2016-11-24] MEDS: Albuterol-Ipratrop 3 mg / 0.5 (3 ml) UD INH SCH ×3 (08:51→20:25)
[2016-11-24] MEDS: Acetylcysteine 20% Inhal Soln (4ml) INH SCH ×3 (08:51→20:25)
[2016-11-24] MEDS: MethylPREDNISolone 40 mg Vial IVP SCH ×3 (10:35→21:36)
[2016-11-24] MEDS: Saccharomyces Boulardi 250 mg Cap PO SCH ×3 (10:36→18:40)
--- NOTE | 2016-11-24 10:38 | RAD ---
HISTORY: pneumonia, cough COMPARISON: 11/22/2016 FINDINGS: LUNGS: No active pulmonary disease. PLEURA: Hazy opacity at left costophrenic angle may reflect small pleural effusion. No right pleural effusion. No pneumothorax. CARDIOVASCULAR: Normal heart size. Right tunneled central venous dialysis catheter. Nasogastric tube left PICC catheter. All unchanged. OSSEOUS STRUCTURES: No significant abnormalities. VISUALIZED UPPER ABDOMEN: Normal. OTHER FINDINGS: None. IMPRESSION: Possible small left pleural effusion. Lines and tubes unchanged. No infiltrate.
[2016-11-24] MEDS: Dorzolamide 2% Opht Sol 10ml OU SCH ×2 (10:39→18:42)
[2016-11-24 10:57] LABS: BASO % 0.2 % (0.0-2.0); HEMOGLOBIN 11.5 g/dL (11.0-16.0); LYMPH # 0.5 K/uL (1.0-4.3); MEAN CELL VOLUME 88.7 fL (81.0-99.0); MEAN CORPUSCULAR HEMOGLOBIN 27.9 pg (27.0-31.0); MEAN CORPUSCULAR HGB CONC 31.5 g/dL (33.0-37.0); MONO # 0.7 K/uL (0.0-0.8); MONO % 9.2 % (0.0-10.0); NEUT # 6.7 K/uL (1.8-7.0); NEUT % 84.6 % (50.0-75.0); PLATELET COUNT 150 K/uL (130-400); RBC 4.12 Mil/uL (3.80-5.20); RED CELL DISTRIBUTION WIDTH 17.6 % (11.5-14.5); WHITE BLOOD COUNT 7.9 K/uL (4.8-10.8)
--- NOTE | 2016-11-24 11:08 | CP.PCM.PN ---
Subjective - Date & Time of Evaluation Date of Evaluation: 11/24/16 Time of Evaluation: 09:30 - Subjective Subjective: patient seen and examined. Lying comfortably in no acute distress Saturation 100% diarrhea persists reexpansion of left lung noted Objective - Vital Signs/Intake and Output Vital Signs (last 24 hours): Temp Pulse Resp BP Pulse Ox 98.6 F 78 16 156/29 H 100 11/24/16 08:00 11/24/16 08:00 11/24/16 08:00 11/24/16 10:40 11/24/16 08:00 Intake and Output: 11/24/16 11/24/16 06:59 18:59 Intake Total 75 300 Output Total 125 300 Balance -50 0 - Medications Medications: Current Medications Acetylcysteine (Acetylcysteine 20%) 4 ml INH RQ6 [facility] Last Admin: 11/24/16 08:51 Dose: 4 ml Albuterol/Ipratropium (Duoneb 3 Mg/0.5 Mg (3 Ml) Ud) 3 ml INH RQ6 [facility] Last Admin: 11/24/16 08:51 Dose: 3 ml Amlodipine Besylate (Norvasc) 5 mg PO DAILY [facility] Last Admin: 11/24/16 10:38 Dose: 5 mg Aspirin (Aspirin Chewable) 81 mg NG DAILY [facility] Last Admin: 11/24/16 10:39 Dose: 81 mg Carvedilol (Coreg) 25 mg PO Q12 [facility] Last Admin: 11/24/16 10:40 Dose: 25 mg Dorzolamide HCl (Trusopt) 0 ml OU BID [facility] Last Admin: 11/24/16 10:39 Dose: 1 drop Famotidine (Pepcid) 20 mg IVP DAILY [facility] Last Admin: 11/24/16 10:42 Dose: 20 mg Gabapentin (Neurontin) 100 mg PO TID [facility] Last Admin: 11/24/16 10:43 Dose: Not Given Heparin Sodium (Porcine) (Heparin) 5,000 units SC Q8 [facility] Last Admin: 11/24/16 06:19 Dose: 5,000 units Hydralazine HCl (Apresoline) 10 mg IVP Q6H PRN PRN Reason: SBP above 180 mm Hg Last Admin: 11/20/16 11:47 Dose: 10 mg Tigecycline 50 mg/ Sodium (Chloride) 100 mls @ 100 mls/hr IVPB Q12H [facility] Last Admin: 11/24/16 10:38 Dose: 100 mls/hr Insulin Glargine (Lantus) 10 unit SC HS [facility] Last Admin: 11/23/16 21:23 Dose: 10 units Insulin Human Regular (Novolin R) 0 unit SC Q6H [facility] PRN Reason: Protocol Last Admin: 11/24/16 06:20 Dose: Not Given Methylprednisolone (Solu-Medrol) 40 mg IVP Q12 [facility] Last Admin: 11/24/16 10:38 Dose: 40 mg Rosuvastatin Calcium (Crestor) 10 mg PO HS [facility] Last Admin: 11/23/16 21:20 Dose: 10 mg Saccharomyces Boulardii (Florastor) 250 mg PO BID [facility] Last Admin: 11/24/16 10:37 Dose: 250 mg - Labs Labs: 11/24/16 10:33 11/23/16 07:33 PT 11.5 SECONDS (9.7-12.2) 11/16/16 06:08 INR 1.0 11/16/16 06:08 APTT 31 SECONDS (21-34) 11/16/16 06:08 - Head Exam Head Exam: ATRAUMATIC, NORMOCEPHALIC - Eye Exam Eye Exam: Normal appearance - ENT Exam ENT Exam: Mucous Membranes Moist - Neck Exam Neck Exam: Normal Inspection - Respiratory Exam Respiratory Exam: Decreased Breath Sounds Assessment and Plan (1) Collapse of left lung Assessment & Plan: status post bronchoscopy and bronchial lavage with reexpansion of lung Continue nebulizer treatment chest PT and Mucomyst Continue antibiotics Status: Acute (2) Hypokalemia Status: Acute (3) COPD (chronic obstructive pulmonary disease) Status: Chronic (4) ESRD (end stage renal disease) on dialysis Status: Chronic
[2016-11-24 11:14] LABS: ALBUMIN 2.1 g/dL (3.5-5.0)
[2016-11-24 11:17] LABS: ALB/GLOB RATIO 0.8 (1.0-2.1)
[2016-11-24 11:18] LABS: CALCIUM 7.2 mg/dl (8.6-10.4)
[2016-11-24 11:35] LABS: ANISOCYTOSIS SLIGHT; LYMPHOCYTE 8 % (20-40); MONOCYTE 11 % (0-10); NEUTROPHIL 81 % (50-75); PLATELET ESTIMATE NORMAL (NORMAL); TOTAL CELLS COUNTED 100
[2016-11-24 11:36] LABS: POIKILOCYTOSIS SLIGHT
[2016-11-24 11:37] LABS: BURR CELLS SLIGHT; OVALOCYTES SLIGHT
--- NOTE | 2016-11-24 11:56 | CP.PCM.PN ---
Subjective - Date & Time of Evaluation Date of Evaluation: 11/24/16 Time of Evaluation: 11:54 - Subjective Subjective: pt seen and examined by me, c/o lower back pain, no sob,pt is not in acute distress Objective - Vital Signs/Intake and Output Vital Signs (last 24 hours): Temp Pulse Resp BP Pulse Ox 98.6 F 78 16 156/29 H 100 11/24/16 08:00 11/24/16 08:00 11/24/16 08:00 11/24/16 10:40 11/24/16 08:00 Intake and Output: 11/24/16 11/24/16 06:59 18:59 Intake Total 75 300 Output Total 125 300 Balance -50 0 - Medications Medications: Current Medications Acetylcysteine (Acetylcysteine 20%) 4 ml INH RQ6 [facility] Last Admin: 11/24/16 08:51 Dose: 4 ml Albuterol/Ipratropium (Duoneb 3 Mg/0.5 Mg (3 Ml) Ud) 3 ml INH RQ6 [facility] Last Admin: 11/24/16 08:51 Dose: 3 ml Amlodipine Besylate (Norvasc) 5 mg PO DAILY [facility] Last Admin: 11/24/16 10:38 Dose: 5 mg Aspirin (Aspirin Chewable) 81 mg NG DAILY [facility] Last Admin: 11/24/16 10:39 Dose: 81 mg Carvedilol (Coreg) 25 mg PO Q12 [facility] Last Admin: 11/24/16 10:40 Dose: 25 mg Dorzolamide HCl (Trusopt) 0 ml OU BID [facility] Last Admin: 11/24/16 10:39 Dose: 1 drop Famotidine (Pepcid) 20 mg IVP DAILY [facility] Last Admin: 11/24/16 10:42 Dose: 20 mg Gabapentin (Neurontin) 100 mg PO TID [facility] Last Admin: 11/24/16 10:43 Dose: Not Given Heparin Sodium (Porcine) (Heparin) 5,000 units SC Q8 [facility] Last Admin: 11/24/16 06:19 Dose: 5,000 units Hydralazine HCl (Apresoline) 10 mg IVP Q6H PRN PRN Reason: SBP above 180 mm Hg Last Admin: 11/20/16 11:47 Dose: 10 mg Tigecycline 50 mg/ Sodium (Chloride) 100 mls @ 100 mls/hr IVPB Q12H [facility] Last Admin: 11/24/16 10:38 Dose: 100 mls/hr Insulin Glargine (Lantus) 10 unit SC [facility] Last Admin: 11/23/16 21:23 Dose: 10 units Insulin Human Regular (Novolin R) 0 unit SC Q6H [facility] PRN Reason: Protocol Last Admin: 11/24/16 06:20 Dose: Not Given Methylprednisolone (Solu-Medrol) 40 mg IVP Q12 [facility] Last Admin: 11/24/16 10:38 Dose: 40 mg Rosuvastatin Calcium (Crestor) 10 mg PO [facility] Last Admin: 11/23/16 21:20 Dose: 10 mg Saccharomyces Boulardii (Florastor) 250 mg PO BID [facility] Last Admin: 11/24/16 10:37 Dose: 250 mg - Labs Labs: 11/24/16 10:33 11/24/16 10:33 PT 11.5 SECONDS (9.7-12.2) 11/16/16 06:08 INR 1.0 11/16/16 06:08 APTT 31 SECONDS (21-34) 11/16/16 06:08 - Constitutional Appears: Well, No Acute Distress - Head Exam Head Exam: ATRAUMATIC, NORMAL INSPECTION, NORMOCEPHALIC - Eye Exam Eye Exam: EOMI, Normal appearance, PERRL Pupil Exam: NORMAL ACCOMODATION, PERRL - ENT Exam ENT Exam: Mucous Membranes Moist, Normal Exam - Neck Exam Neck Exam: Full ROM, Normal Inspection - Respiratory Exam Respiratory Exam: Clear to Ausculation Bilateral, NORMAL BREATHING PATTERN - Cardiovascular Exam Cardiovascular Exam: REGULAR RHYTHM, +S1, +S2 - GI/Abdominal Exam GI & Abdominal Exam: Soft, Normal Bowel Sounds Additional comments: non tender, no hsm, no guarding, no rigidity - Extremities Exam Additional comments: b/l AKA - Neurological Exam Neurological Exam: Alert, Awake Additional comments: oriented x 2 - Skin Skin Exam: Normal Color, Warm Assessment and Plan - Assessment and Plan (Free Text) Plan: 61 yo Obese HF with pmh/o htn, dm, chf,esrd, copd/asthma, was admitted with sob , AMS, pt is being treated for chf, pneumonia 1. ESRD, c/w hd 3 x aweek TTS 2. HTN, bp is stable, c/w current meds, norvasc, hydralazinem coreg 3. Pneumonia, c/w iv abx as per pulmonary/ ID 4. COPD, c/w steriods and inhallers per pulmonary
--- NOTE | 2016-11-24 12:03 | CP.PCM.PN ---
Subjective - Date & Time of Evaluation Date of Evaluation: 11/24/16 Time of Evaluation: 09:00 - Subjective Subjective: cont to improve extubated alert and awake afeb Objective - Vital Signs/Intake and Output Vital Signs (last 24 hours): Temp Pulse Resp BP Pulse Ox 98.6 F 78 16 156/29 H 100 11/24/16 08:00 11/24/16 08:00 11/24/16 08:00 11/24/16 10:40 11/24/16 08:00 Intake and Output: 11/24/16 11/24/16 06:59 18:59 Intake Total 75 300 Output Total 125 300 Balance -50 0 - Medications Medications: Current Medications Acetylcysteine (Acetylcysteine 20%) 4 ml INH RQ6 [facility] Last Admin: 11/24/16 08:51 Dose: 4 ml Albuterol/Ipratropium (Duoneb 3 Mg/0.5 Mg (3 Ml) Ud) 3 ml INH RQ6 [facility] Last Admin: 11/24/16 08:51 Dose: 3 ml Amlodipine Besylate (Norvasc) 5 mg PO DAILY [facility] Last Admin: 11/24/16 10:38 Dose: 5 mg Aspirin (Aspirin Chewable) 81 mg NG DAILY [facility] Last Admin: 11/24/16 10:39 Dose: 81 mg Carvedilol (Coreg) 25 mg PO Q12 [facility] Last Admin: 11/24/16 10:40 Dose: 25 mg Dorzolamide HCl (Trusopt) 0 ml OU BID [facility] Last Admin: 11/24/16 10:39 Dose: 1 drop Famotidine (Pepcid) 20 mg IVP DAILY [facility] Last Admin: 11/24/16 10:42 Dose: 20 mg Gabapentin (Neurontin) 100 mg PO TID [facility] Last Admin: 11/24/16 10:43 Dose: Not Given Heparin Sodium (Porcine) (Heparin) 5,000 units SC Q8 [facility] Last Admin: 11/24/16 06:19 Dose: 5,000 units Hydralazine HCl (Apresoline) 10 mg IVP Q6H PRN PRN Reason: SBP above 180 mm Hg Last Admin: 11/20/16 11:47 Dose: 10 mg Hydrocortisone (Anusol-Hc) 0 gm [place] BID [facility] Tigecycline 50 mg/ Sodium (Chloride) 100 mls @ 100 mls/hr IVPB Q12H [facility] Last Admin: 11/24/16 10:38 Dose: 100 mls/hr Insulin Glargine (Lantus) 10 unit SC HS [facility] Last Admin: 11/23/16 21:23 Dose: 10 units Insulin Human Regular (Novolin R) 0 unit SC Q6H [facility] PRN Reason: Protocol Last Admin: 11/24/16 06:20 Dose: Not Given Methylprednisolone (Solu-Medrol) 40 mg IVP Q12 [facility] Last Admin: 11/24/16 10:38 Dose: 40 mg Rosuvastatin Calcium (Crestor) 10 mg PO HS [facility] Last Admin: 11/23/16 21:20 Dose: 10 mg Saccharomyces Boulardii (Florastor) 250 mg PO BID [facility] Last Admin: 11/24/16 10:37 Dose: 250 mg - Labs Labs: 11/24/16 10:33 11/24/16 10:33 PT 11.5 SECONDS (9.7-12.2) 11/16/16 06:08 INR 1.0 11/16/16 06:08 APTT 31 SECONDS (21-34) 11/16/16 06:08 - Constitutional Appears: Non-toxic, Chronically Ill - Head Exam Head Exam: NORMOCEPHALIC - Eye Exam Eye Exam: PERRL - ENT Exam ENT Exam: Mucous Membranes Dry, Normal External Ear Exam - Neck Exam Neck Exam: absent: Lymphadenopathy - Respiratory Exam Respiratory Exam: Decreased Breath Sounds - Cardiovascular Exam Cardiovascular Exam: REGULAR RHYTHM - GI/Abdominal Exam GI & Abdominal Exam: Distended, Soft - Rectal Exam Rectal Exam: Deferred - Exam Exam: NORMAL INSPECTION Assessment and Plan (1) Acute respiratory failure Status: Acute (2) COPD (chronic obstructive pulmonary disease) Status: Chronic (3) ESRD (end stage renal disease) on dialysis Status: Chronic (4) Congestive heart failure Status: Chronic (5) Diabetes mellitus Status: Chronic (6) HTN (hypertension) Status: Chronic
[2016-11-24] MEDS: Hydrocortisone 2.5% Rectal Cream(30 gm) PR SCH ×2 (12:24→18:42)
--- NOTE | 2016-11-24 12:31 | CP.PCM.PN ---
<Alejandra Buckley - Last Filed: 11/24/16 19:21> Subjective - Date & Time of Evaluation Date of Evaluation: 11/24/16 Time of Evaluation: 12:31 - Subjective Subjective: Medicine Progress Note- Dr. Esqueda Service Patient was seen and examined at bedside in no acute distress. Patient complained of perianal pain and burning. She also admits to having a cough, but not sure of she has phlegm. Patient is oriented to person, but not to place or time. Patient denies chest pain, palpitations, nausea, vomiting, and dizziness. Objective - Vital Signs/Intake and Output Vital Signs (last 24 hours): Temp Pulse Resp BP Pulse Ox 98.6 F 78 16 156/29 H 100 11/24/16 08:00 11/24/16 08:00 11/24/16 08:00 11/24/16 10:40 11/24/16 08:00 Intake and Output: 11/24/16 11/24/16 06:59 18:59 Intake Total 75 300 Output Total 125 300 Balance -50 0 - Medications Medications: Current Medications Acetylcysteine (Acetylcysteine 20%) 4 ml INH RQ6 [facility] Last Admin: 11/24/16 08:51 Dose: 4 ml Albuterol/Ipratropium (Duoneb 3 Mg/0.5 Mg (3 Ml) Ud) 3 ml INH RQ6 [facility] Last Admin: 11/24/16 08:51 Dose: 3 ml Amlodipine Besylate (Norvasc) 5 mg PO DAILY [facility] Last Admin: 11/24/16 10:38 Dose: 5 mg Aspirin (Aspirin Chewable) 81 mg NG DAILY [facility] Last Admin: 11/24/16 10:39 Dose: 81 mg Carvedilol (Coreg) 25 mg PO Q12 [facility] Last Admin: 11/24/16 10:40 Dose: 25 mg Dorzolamide HCl (Trusopt) 0 ml OU BID [facility] Last Admin: 11/24/16 10:39 Dose: 1 drop Famotidine (Pepcid) 20 mg IVP DAILY [facility] Last Admin: 11/24/16 10:42 Dose: 20 mg Gabapentin (Neurontin) 100 mg PO TID [facility] Last Admin: 11/24/16 10:43 Dose: Not Given Heparin Sodium (Porcine) (Heparin) 5,000 units SC Q8 [facility] Last Admin: 11/24/16 06:19 Dose: 5,000 units Hydralazine HCl (Apresoline) 10 mg IVP Q6H PRN PRN Reason: SBP above 180 mm Hg Last Admin: 11/20/16 11:47 Dose: 10 mg Hydrocortisone (Anusol-Hc) 0 gm [place] BID [facility] Last Admin: 11/24/16 12:24 Dose: 1 applic Tigecycline 50 mg/ Sodium (Chloride) 100 mls @ 100 mls/hr IVPB Q12H [facility] Last Admin: 11/24/16 10:38 Dose: 100 mls/hr Insulin Glargine (Lantus) 10 unit SC HS [facility] Last Admin: 11/23/16 21:23 Dose: 10 units Insulin Human Regular (Novolin R) 0 unit SC Q6H [facility] PRN Reason: Protocol Last Admin: 11/24/16 12:07 Dose: Not Given Methylprednisolone (Solu-Medrol) 40 mg IVP Q12 [facility] Last Admin: 11/24/16 10:38 Dose: 40 mg Rosuvastatin Calcium (Crestor) 10 mg PO [facility] Last Admin: 11/23/16 21:20 Dose: 10 mg Saccharomyces Boulardii (Florastor) 250 mg PO BID [facility] Last Admin: 11/24/16 10:37 Dose: 250 mg - Labs Labs: 11/24/16 10:33 11/24/16 10:33 PT 11.5 SECONDS (9.7-12.2) 11/16/16 06:08 INR 1.0 11/16/16 06:08 APTT 31 SECONDS (21-34) 11/16/16 06:08 - Constitutional Appears: No Acute Distress - Head Exam Head Exam: NORMAL INSPECTION, NORMOCEPHALIC - Eye Exam Eye Exam: EOMI, Normal appearance - ENT Exam ENT Exam: Mucous Membranes Moist - Neck Exam Neck Exam: Normal Inspection - Respiratory Exam Respiratory Exam: Rhonchi, Wheezes. absent: Clear to Ausculation Bilateral - Cardiovascular Exam Cardiovascular Exam: +S1, +S2 - GI/Abdominal Exam GI & Abdominal Exam: Soft, Normal Bowel Sounds - Extremities Exam Extremities Exam: absent: Normal Inspection (B/L AKA amputation) - Neurological Exam Neurological Exam: Alert, Awake. absent: Oriented x3 - Psychiatric Exam Psychiatric exam: Normal Affect, Normal Mood - Skin Skin Exam: Dry, Intact, Normal Color, Warm Assessment and Plan (1) Acute respiratory failure Assessment & Plan: Intubated in the ED on admission PH: 7.04, CO2: 124 on admission history of COPD Pulmonary consult (Dr. Quach)--->help appreciated Duonebs 3ml INH RQ8 HR Solumedrol 40mg IVP Q 12 hours Extubation 11/18 Chest xray (11/15/16): possible small left pleural effusion. Line and tubes are unchanged Chest Xray 11/16/16): No active disease Chest xray (11/19/16): moderate bilateral pleural effusionsm larger on left; bibasilare atelectasis/pneumonia cannot be excluded. Chest Xray (11/21/16): Interval near complete opacification of the left opal thorax. Suggestive for lung collapse and or pleural effusion. - Bronchoscope performed (Dr. Quach) 11/21/16): Thick secretions were aspirated and mucomyst 2cc was infused. Chest xray (11/22/16): severe cardiomegaly, pulmonary venous congestion and small left pleural effusion. Chest xray (11/24/16): possible small left pleural effusion. no infiltrate Sputum culture (11/18/16): gram negative ariadne Sputum culture (11/16/16): Klebsiella pneumoniae, multidrug resistant Infectious disease (Dr. Anne) on board-->help appreciated Tigeyclcine 50mg IV 12 hours- day 2 (Active since 11/19/16); changed from Maxipime 1 gram IV Q 24hours Monitor WBCs (13.9 on 11/20/16) 7.9 on 11/24/16 Aspiration precaution initiated Head of bed 30 degree ordered Status: Acute (2) COPD (chronic obstructive pulmonary disease) Assessment & Plan: Pulmonary Consult (Dr. Quach)-->on board help appreciated-->taper steroids Solumdedrol 40mg IV Q 12hours Duonebs 3ml INH RQ8HR Chest xray (11/22/16): severe cardiomegaly, pulmonary venous congestion and small left pleural effusion. Chest xray (11/24/16): possible small left pleural effusion. no infiltrate Status: Chronic (3) Hyperlipidemia Assessment & Plan: Lipid panel: TG mildly elevated Crestor 10mg POqHS Status: Chronic (4) Congestive heart failure Assessment & Plan: Echocardiogram (10/02/16): left ventricle systolic function is normal, EF: 65-70% , no aortic regurgitation is present, mitral regurgitation is mild, mild trciuspid regurgitation, mild pulmonary hypertension, mild pulmonic valvular regurgitation Patient recently started on dialysis about 2 weeks ago Crestor 10mg POqHS Aspirin 81mg PO daily Coreg 12.5mg PO Q12 Status: Chronic (5) Thrombocytopenia Assessment & Plan: d/c heparin 5000 units subq 12 hours-->ordered for heparin induced thrombocytopenia Status: Acute (6) ESRD (end stage renal disease) on dialysis Assessment & Plan: Nephrology consult, Dr. Saeed, help appreciated Patient recently started on dialysis about 2 weeks ago at [facility] per review of EMR Dialysis: T/[facility]/Sat Status: Chronic (7) Diabetes mellitus Assessment & Plan: Accuchecks Q6H Insulin sliding scale subq6H Hgba1c: 5.0 controlled Lantus 10 units subqHS Neurotonin 100mg PO tid Status: Chronic (8) HTN (hypertension) Assessment & Plan: Monitor blood pressure Coreg 12.5mg PO Q12 146/53 on 11/24/16 Status: Chronic (9) Diarrhea Assessment & Plan: Pepcid 20mg IVq daily Blood cultures (11/14/16): no growth X 4 days X2 Urine culture (11/14/16): no growth MRSA (11/15/16): MRSA not detected Blood culture (11/16/16): no growth after 48 hours 11/16/16: No salmonella, shigella, or campylobacter Urine culture: no growth Florastor 250mg PO bid C dif: negative on 11/16, 11/20, 11/21, 11/22 Anusol started 11/24/16 Status: Acute (10) Malnutrition Assessment & Plan: Low albumin at 2.1 (11/24/16) Maintenance Team Leader consulted Status: Acute (11) Leukocytosis Assessment & Plan: Sputum culture (11/18/16): Klebsiella pneumoniae-->on Tigecycline Sputum culture (11/16/16): Klebsiella pneumoniae Infectious disease (Dr. Anne) on board-->help appreciated Tigeyclcine 50mg IV 12 hours (Active since 11/19/16); changed from Maxipime 1 gram IV Q 24hours Has PICC line Contact precautions May need repeat cultures if continues to uptrend Chest xray (11/22/16): severe cardiomegaly, pulmonary venous congestion and small left pleural effusion. Chest xray (11/24/16): possible small left pleural effusion. no infiltrate Blood cultures (11/14/16): no growth X 5days Urine culture (11/14/16): no growth MRSA (11/15/16): MRSA not detected Blood culture (11/16/16): no growth after 3 days 11/16/16: No salmonella, shigella, or campylobacter Urine culture: no growth Florastor 250mg PO bid C dif: negative Has bahena, PICC line, and rectocel Status: Acute (12) Prophylactic measure Assessment & Plan: Restarted heparin (11/21/16) Pepcid 20mg IV q daily Florastor 250mg PO bid Turn Q2 hours Wound care Palliative care consult Status: Acute <Ondina Esqueda V - Last Filed: 11/24/16 23:23> Objective - Vital Signs/Intake and Output Vital Signs (last 24 hours): Temp Pulse Resp BP Pulse Ox 98.1 F 70 20 163/50 H 96 11/24/16 15:55 11/24/16 16:30 11/24/16 15:55 11/24/16 21:36 11/24/16 15:55 Intake and Output: 11/24/16 11/25/16 18:59 06:59 Intake Total 650 300 Output Total 600 250 Balance 50 50 - Medications Medications: Current Medications Acetylcysteine (Acetylcysteine 20%) 4 ml INH RQ6 [facility] Last Admin: 11/24/16 20:25 Dose: 4 ml Albuterol/Ipratropium (Duoneb 3 Mg/0.5 Mg (3 Ml) Ud) 3 ml INH RQ6 [facility] Last Admin: 11/24/16 20:25 Dose: 3 ml Amlodipine Besylate (Norvasc) 5 mg PO DAILY [facility] Last Admin: 11/24/16 10:38 Dose: 5 mg Aspirin (Aspirin Chewable) 81 mg NG DAILY [facility] Last Admin: 11/24/16 10:39 Dose: 81 mg Carvedilol (Coreg) 25 mg PO Q12 [facility] Last Admin: 11/24/16 21:36 Dose: 25 mg Dorzolamide HCl (Trusopt) 0 ml OU BID [facility] Last Admin: 11/24/16 18:42 Dose: 1 drop Famotidine (Pepcid) 20 mg IVP DAILY [facility] Last Admin: 11/24/16 10:42 Dose: 20 mg Gabapentin (Neurontin) 100 mg PO TID [facility] Last Admin: 11/24/16 18:40 Dose: 100 mg Hydralazine HCl (Apresoline) 10 mg IVP Q6H PRN PRN Reason: SBP above 180 mm Hg Last Admin: 11/20/16 11:47 Dose: 10 mg Hydrocortisone (Anusol-Hc) 0 gm [place] BID [facility] Last Admin: 11/24/16 18:42 Dose: 1 applic Tigecycline 50 mg/ Sodium (Chloride) 100 mls @ 100 mls/hr IVPB Q12H [facility] Last Admin: 11/24/16 21:35 Dose: 100 mls/hr Insulin Glargine (Lantus) 10 unit SC HS [facility] Last Admin: 11/24/16 21:38 Dose: 10 units Insulin Human Regular (Novolin R) 0 unit SC Q6H [facility] PRN Reason: Protocol Last Admin: 11/24/16 18:41 Dose: Not Given Methylprednisolone (Solu-Medrol) 40 mg IVP Q12 [facility] Last Admin: 11/24/16 21:36 Dose: 40 mg Rosuvastatin Calcium (Crestor) 10 mg PO HS [facility] Last Admin: 11/24/16 21:36 Dose: 10 mg Saccharomyces Boulardii (Florastor) 250 mg PO BID [facility] Last Admin: 11/24/16 18:40 Dose: 250 mg - Labs Labs: 11/24/16 10:33 11/24/16 10:33 PT 11.5 SECONDS (9.7-12.2) 11/16/16 06:08 INR 1.0 11/16/16 06:08 APTT 31 SECONDS (21-34) 11/16/16 06:08 Assessment and Plan (1) Acute respiratory failure Status: Acute (2) COPD (chronic obstructive pulmonary disease) Status: Chronic (3) Hyperlipidemia Status: Chronic (4) Congestive heart failure Status: Chronic (5) Diabetes mellitus Status: Chronic (6) ESRD (end stage renal disease) on dialysis Status: Chronic (7) HTN (hypertension) Status: Chronic (8) Hypokalemia Status: Acute (9) Prophylactic measure Status: Acute Attending/Attestation - Attestation I have personally seen and examined this patient.: Yes I have fully participated in the care of the patient.: Yes I have reviewed all pertinent clinical information, including history, physical exam and plan: Yes Notes (Text): Patient seen, examined and case discussed with day-time internet marketing consultant. Patient seen in ICU BED 16 prior to transfer to the floor. Patient is hard of hearing, but reports today is Thursday and reports she came in yesterday. Explained to the patient she has been here for a week in the ICU and that today is November 24. Patient reports rectal irritation and loose stool. Patient has a Flexseal connected. Patient started on Anusol to give symptomatic relief. Patient is currently on NGT tube feedings. Awaiting swallow re-eval to determine if patient can feed by mouth or not. Patient is currently on Tigecycline for mutlidrug resistent Klebsella. Patient' s repeat chest xray does not show acute changes from prior. Consult Palliative care for goals of care discussion with patient's son. 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 Heparin discontinued.
[2016-11-24] MEDS: (Lantus) Insulin Glargine, Recombinant SC SCH (21:38)
[2016-11-25] MEDS: Albuterol-Ipratrop 3 mg / 0.5 (3 ml) UD INH SCH ×4 (02:13→19:45)
[2016-11-25] MEDS: Acetylcysteine 20% Inhal Soln (4ml) INH SCH ×4 (02:13→19:46)
--- NOTE | 2016-11-25 06:46 | CP.PCM.PN ---
<Ondina Esqueda V - Last Filed: 11/25/16 18:54> Objective - Vital Signs/Intake and Output Vital Signs (last 24 hours): Temp Pulse Resp BP Pulse Ox 98.9 F 80 20 194/81 H 99 11/25/16 16:00 11/25/16 16:00 11/25/16 16:00 11/25/16 16:00 11/25/16 16:00 Intake and Output: 11/25/16 11/25/16 06:59 18:59 Intake Total 300 200 Output Total 450 380 Balance -150 -180 - Medications Medications: Current Medications Acetylcysteine (Acetylcysteine 20%) 4 ml INH RQ6 [facility] Last Admin: 11/25/16 13:25 Dose: 4 ml Albuterol/Ipratropium (Duoneb 3 Mg/0.5 Mg (3 Ml) Ud) 3 ml INH RQ6 [facility] Last Admin: 11/25/16 13:25 Dose: 3 ml Amlodipine Besylate (Norvasc) 5 mg PO DAILY [facility] Last Admin: 11/25/16 13:13 Dose: 5 mg Aspirin (Aspirin Chewable) 81 mg NG DAILY [facility] Last Admin: 11/25/16 12:53 Dose: 81 mg Benzonatate (Tessalon Perles) 100 mg PO TID PRN PRN Reason: Sore Throat Carvedilol (Coreg) 25 mg PO Q12 [facility] Last Admin: 11/25/16 11:16 Dose: Not Given Dorzolamide HCl (Trusopt) 0 ml OU BID [facility] Last Admin: 11/25/16 17:52 Dose: 1 drop Famotidine (Pepcid) 20 mg IVP DAILY [facility] Last Admin: 11/25/16 12:54 Dose: 20 mg Gabapentin (Neurontin) 100 mg PO TID [facility] Last Admin: 11/25/16 17:46 Dose: 100 mg Hydralazine HCl (Apresoline) 10 mg IVP Q6H PRN PRN Reason: SBP above 180 mm Hg Last Admin: 11/25/16 17:46 Dose: 10 mg Hydrocortisone (Anusol-Hc) 0 gm SC Q8H [facility] Last Admin: 11/25/16 17:46 Dose: 1 applic Tigecycline 50 mg/ Sodium (Chloride) 100 mls @ 100 mls/hr IVPB Q12H [facility] Last Admin: 11/25/16 12:55 Dose: 100 mls/hr Insulin Glargine (Lantus) 10 unit SC HS [facility] Last Admin: 11/24/16 21:38 Dose: 10 units Insulin Human Regular (Novolin R) 0 unit SC Q6H [facility] PRN Reason: Protocol Last Admin: 11/25/16 17:52 Dose: Not Given Methylprednisolone (Solu-Medrol) 40 mg IVP Q12 [facility] Last Admin: 11/25/16 11:16 Dose: Not Given Rosuvastatin Calcium (Crestor) 10 mg PO HS [facility] Last Admin: 11/24/16 21:36 Dose: 10 mg Saccharomyces Boulardii (Florastor) 250 mg PO BID [facility] Last Admin: 11/25/16 17:46 Dose: 250 mg - Labs Labs: 11/25/16 09:08 11/25/16 09:08 PT 11.5 SECONDS (9.7-12.2) 11/16/16 06:08 INR 1.0 11/16/16 06:08 APTT 31 SECONDS (21-34) 11/16/16 06:08 Assessment and Plan (1) Acute respiratory failure Status: Acute (2) COPD (chronic obstructive pulmonary disease) Status: Chronic (3) Hyperlipidemia Status: Chronic (4) Congestive heart failure Status: Chronic (5) Diabetes mellitus Status: Chronic (6) ESRD (end stage renal disease) on dialysis Status: Chronic (7) HTN (hypertension) Status: Chronic (8) Hypokalemia Status: Acute (9) Prophylactic measure Status: Acute Attending/Attestation - Attestation I have personally seen and examined this patient.: Yes I have fully participated in the care of the patient.: Yes I have reviewed all pertinent clinical information, including history, physical exam and plan: Yes Notes (Text): Patient seen, examined, and case discussed with day-time resident Patient seen at bedside. patient is hard of hearing but understands in Cambodian. Patient seen and examined post-dialysis. Discussed with patient's son at bedside. Patient received her eye-glass which helps her in seeing and is hard of hearing but is responsive and communicative with her son. per discussion with son, patient has an intense disgust for current president when asked orientation type questions and wont respond to it normally. Patient has periods of forgetfulness noted by the son but does not compared to when she was first admitted. Reaffirmed with son-->patient is FULL CODE. Patient is a long-term resident at [facility]. Patient will likely need moth exterminator IV antibiotics for multidrug resistant Klebsiella. Will need to discuss with infectious disease. 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 Changed her Anusol dosing TID for michelle-rectal pain. Patient has adverse/allergic to narcotic medications will cause delirium per son. Patient started on Tessolon perles for sore throat pain. Cannot start phenegran w codeine secondary to narcotic side effect. Patient has rectocel, bahena, and PICC line and NGT tube for feedings. Patient is pending swallow eval to restart diet. Assessment/Plan (1) Acute respiratory failure Assessment & Plan: Intubated in the ED on admission PH: 7.04, CO2: 124 on admission history of COPD Pulmonary consult (Dr. Quach)--->help appreciated--taper off steroids Duonebs 3ml INH RQ8 HR Solumedrol 40mg IVP Q 12 hours Extubation 11/18 Chest xray (11/15/16): possible small left pleural effusion. Line and tubes are unchanged Chest Xray 11/16/16): No active disease Chest xray (11/24/16): possible small left pleural effusion. lines and tubes unchanged. No infiltrate Status: Acute (2) Multi-drug resistant Klebsiella pneumonia Assessment & Plan: Sputum culture (11/18/16): Klebsiella pneumoniae-->on Tigecycline Sputum culture (11/16/16): Klebsiella pneumoniae Infectious disease (Dr. Anne) on board-->help appreciated Tigeyclcine 50mg IV 12 hours (Active since 11/19/16) Has PICC alexandre Contact precautions Status: Acute (3) Leukocytosis Sputum culture (11/18/16): Klebsiella pneumoniae-->on Tigecycline Sputum culture (11/16/16): Klebsiella pneumoniae Infectious disease (Dr. Anne) on board-->help appreciated Tigeyclcine 50mg IV 12 hours (Active since 11/19/16) Has PICC alexandre Contact precautions Blood cultures (11/14/16): no growth X 5days Blood cultures (11/16/16): no growth X 5days Urine culture (11/14/16): no growth MRSA (11/15/16): MRSA not detected 11/16/16: No salmonella, shigella, or campylobacter Urine culture: no growth Florastor 250mg PO bid C dif: negative has bahena, PICC line, and rectocel Status: Acute (4) COPD (chronic obstructive pulmonary disease) Assessment & Plan: Pulmonary Consult (Dr. Quach)-->on board help appreciated-->taper steroids Solumdedrol 40mg IV Q 12hours Duonebs 3ml INH RQ8HR Status: Chronic (5) Hyperlipidemia Assessment & Plan: Lipid panel: TG mildly elevated Crestor 10mg POqHS Status: Chronic (6) Congestive heart failure Assessment & Plan: Echocardiogram (10/02/16): left ventricle systolic function is normal, EF: 65-70% , no aortic regurgitation is present, mitral regurgitation is mild, mild trciuspid regurgitation, mild pulmonary hypertension, mild pulmonic valvular regurgitation patient recently started on dialysis about 2 weeks ago Crestor 10mg POqHS Aspirin 81mg PO daily Coreg 25mg PO Q12 Status: Chronic (7) Diabetes mellitus Assessment & Plan: Accuchecks Q6H insulin sliding scale subq6H hgba1c: 5.0 controlled lantus 10 units subqHS Neurotonin 100mg PO tid Status: Chronic (8) ESRD (end stage renal disease) on dialysis Assessment & Plan: Nephrology consult, Dr. 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 Dheeraj Og Patient was seen and examined at bedside in no acute distress. Patient states she still has perianal pain and shortness of breath. She is oriented to person, but not place and time. Patient denies chest carney, abdominal pain, headache, nausea, and vomiting. Objective - Vital Signs/Intake and Output Vital Signs (last 24 hours): Temp Pulse Resp BP Pulse Ox 98.3 F 72 20 163/57 H 98 11/24/16 23:25 11/25/16 04:05 11/24/16 23:25 11/24/16 23:25 11/24/16 23:25 Intake and Output: 11/24/16 11/25/16 18:59 06:59 Intake Total 650 300 Output Total 600 450 Balance 50 -150 - Medications Medications: Current Medications Acetylcysteine (Acetylcysteine 20%) 4 ml INH RQ6 [facility] Last Admin: 11/25/16 02:13 Dose: 4 ml Albuterol/Ipratropium (Duoneb 3 Mg/0.5 Mg (3 Ml) Ud) 3 ml INH RQ6 [facility] Last Admin: 11/25/16 02:13 Dose: 3 ml Amlodipine Besylate (Norvasc) 5 mg PO DAILY [facility] Last Admin: 11/24/16 10:38 Dose: 5 mg Aspirin (Aspirin Chewable) 81 mg NG DAILY [facility] Last Admin: 11/24/16 10:39 Dose: 81 mg Carvedilol (Coreg) 25 mg PO Q12 [facility] Last Admin: 11/24/16 21:36 Dose: 25 mg Dorzolamide HCl (Trusopt) 0 ml OU BID [facility] Last Admin: 11/24/16 18:42 Dose: 1 drop Famotidine (Pepcid) 20 mg IVP DAILY [facility] Last Admin: 11/24/16 10:42 Dose: 20 mg Gabapentin (Neurontin) 100 mg PO TID [facility] Last Admin: 11/24/16 18:40 Dose: 100 mg Hydralazine HCl (Apresoline) 10 mg IVP Q6H PRN PRN Reason: SBP above 180 mm Hg Last Admin: 11/20/16 11:47 Dose: 10 mg Hydrocortisone (Anusol-Hc) 0 gm SC BID [facility] Last Admin: 11/24/16 18:42 Dose: 1 applic Tigecycline 50 mg/ Sodium (Chloride) 100 mls @ 100 mls/hr IVPB Q12H [facility] Last Admin: 11/24/16 21:35 Dose: 100 mls/hr Insulin Glargine (Lantus) 10 unit SC [facility] Last Admin: 11/24/16 21:38 Dose: 10 units Insulin Human Regular (Novolin R) 0 unit SC Q6H [facility] PRN Reason: Protocol Last Admin: 11/24/16 18:41 Dose: Not Given Methylprednisolone (Solu-Medrol) 40 mg IVP Q12 [facility] Last Admin: 11/24/16 21:36 Dose: 40 mg Rosuvastatin Calcium (Crestor) 10 mg PO HS [facility] Last Admin: 11/24/16 21:36 Dose: 10 mg Saccharomyces Boulardii (Florastor) 250 mg PO BID [facility] Last Admin: 11/24/16 18:40 Dose: 250 mg - Labs Labs: 11/24/16 10:33 11/24/16 10:33 PT 11.5 SECONDS (9.7-12.2) 11/16/16 06:08 INR 1.0 11/16/16 06:08 APTT 31 SECONDS (21-34) 11/16/16 06:08 - Constitutional Appears: No Acute Distress - Head Exam Head Exam: NORMAL INSPECTION, NORMOCEPHALIC - Eye Exam Eye Exam: EOMI, Normal appearance - ENT Exam ENT Exam: Mucous Membranes Moist - Respiratory Exam Respiratory Exam: Rhonchi, Wheezes. absent: Clear to Ausculation Bilateral - Cardiovascular Exam Cardiovascular Exam: +S1, +S2 - GI/Abdominal Exam GI & Abdominal Exam: Soft, Normal Bowel Sounds - Extremities Exam Extremities Exam: absent: Normal Inspection Additional comments: B/L AKA - Neurological Exam Neurological Exam: Alert, Awake. absent: Oriented x3 - Psychiatric Exam Psychiatric exam: Normal Affect, Normal Mood - Skin Skin Exam: Dry, Intact, Normal Color, Warm Assessment and Plan (1) Acute respiratory failure Assessment & Plan: Intubated in the ED on admission PH: 7.04, CO2: 124 on admission History of COPD Pulmonary consult (Dr. Quach)--->help appreciated Duonebs 3ml INH RQ8 HR Solumedrol 40mg IVP Q 12 hours Extubation 11/18 Chest xray (11/15/16): possible small left pleural effusion. Line and tubes are unchanged Chest Xray 11/16/16): No active disease Chest xray (11/19/16): moderate bilateral pleural effusionsm larger on left; bibasilare atelectasis/pneumonia cannot be excluded. Chest Xray (11/21/16): Interval near complete opacification of the left opal thorax. Suggestive for lung collapse and or pleural effusion. - Bronchoscope performed (Dr. Quach) 11/21/16): Thick secretions were aspirated and mucomyst 2cc was infused. Chest xray (11/22/16): severe cardiomegaly, pulmonary venous congestion and small left pleural effusion. Chest xray (11/24/16): possible small left pleural effusion. no infiltrate Sputum culture (11/18/16): gram negative ariadne Sputum culture (11/16/16): Klebsiella pneumoniae, multidrug resistant Infectious disease (Dr. Anne) on board-->help appreciated Tigeyclcine 50mg IV 12 hours- day 2 (Active since 11/19/16); changed from Maxipime 1 gram IV Q 24hours Monitor WBCs (13.9 on 11/20/16) 7.9 on 11/24/16 Aspiration precaution initiated Head of bed 30 degree ordered Swallow eval ordered on 11/25/16 Status: Acute (2) COPD (chronic obstructive pulmonary disease) Assessment & Plan: Pulmonary Consult (Dr. Quach)-->on board help appreciated-->taper steroids Solumdedrol 40mg IV Q 12hours Duonebs 3ml INH RQ8HR Chest xray (11/22/16): severe cardiomegaly, pulmonary venous congestion and small left pleural effusion. Chest xray (11/24/16): possible small left pleural effusion. no infiltrate Status: Chronic (3) Hyperlipidemia Assessment & Plan: Lipid panel: TG mildly elevated Crestor 10mg POqHS Status: Chronic (4) Congestive heart failure Assessment & Plan: Echocardiogram (10/02/16): left ventricle systolic function is normal, EF: 65-70% , no aortic regurgitation is present, mitral regurgitation is mild, mild trciuspid regurgitation, mild pulmonary hypertension, mild pulmonic valvular regurgitation Patient recently started on dialysis about 2 weeks ago Patient had dialysis today, 11/25/16 Crestor 10mg POqHS Aspirin 81mg PO daily Coreg 25mg PO Q12 Status: Chronic (5) Thrombocytopenia Assessment & Plan: Discontinued Heparin 5000 units subq 12 hours 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 Saeed, help appreciated Patient recently started on dialysis about 2 weeks ago at [place] per review of EMR Dialysis: T/Treasure/Sat Received dialysis today, 11/25/16 Status: Chronic (7) Diabetes mellitus Assessment & Plan: Accuchecks Q6H Insulin sliding scale subq6H Hgba1c: 5.0 controlled Lantus 10 units subqHS Neurotonin 100mg PO tid Status: Chronic (8) HTN (hypertension) Assessment & Plan: Monitor blood pressure Coreg 25mg PO Q12 Norvasc 5mg PO daily Status: Chronic (9) Diarrhea Assessment & Plan: Pepcid 20mg IVq daily Blood cultures (11/14/16): no growth X 4 days X2 Urine culture (11/14/16): no growth MRSA (11/15/16): MRSA not detected Blood culture (11/16/16): no growth after 48 hours 11/16/16: No salmonella, shigella, or campylobacter Urine culture: no growth Florastor 250mg PO bid C dif: negative on 11/16, 11/20, 11/21, 11/22 Anusol increased to TID 11/25/16 Status: Acute (10) Malnutrition Assessment & Plan: Low albumin at 2.1 (11/24/16) Body Mechanic consulted Tube feeding rate @25ml/hr as of 11/25/16 Goal as per illusionist is 35ml/hr Status: Acute (11) Leukocytosis Assessment & Plan: Sputum culture (11/18/16): Klebsiella pneumoniae-->on Tigecycline Sputum culture (11/16/16): Klebsiella pneumoniae Infectious disease (Dr. Anne) on board-->help appreciated Tigeyclcine 50mg IV 12 hours (Active since 11/19/16); changed from Maxipime 1 gram IV Q 24hours Has PICC line Contact precautions May need repeat cultures if continues to uptrend Chest xray (11/22/16): severe cardiomegaly, pulmonary venous congestion and small left pleural effusion. Chest xray (11/24/16): possible small left pleural effusion. no infiltrate Blood cultures (11/14/16): no growth X 5days Urine culture (11/14/16): no growth MRSA (11/15/16): MRSA not detected Blood culture (11/16/16): no growth after 3 days 11/16/16: No salmonella, shigella, or campylobacter Urine culture: no growth Florastor 250mg PO bid C dif: negative Has bahena, PICC line, and rectocel Status: Acute (12) Prophylactic measure Assessment & Plan: Restarted heparin (11/21/16) Pepcid 20mg IV q daily Florastor 250mg PO bid Turn Q2 hours Wound care Palliative care consult Swallow eval orderd 11/25/16 Status: Acute
[2016-11-25] MEDS: (Novolin R) Insulin Human Regular 100 units/ml vial SC SCH ×4 (07:17→17:52)
[2016-11-25 09:26] LABS: BASO % 0.3 % (0.0-2.0); HEMOGLOBIN 12.1 g/dL (11.0-16.0); LYMPH # 0.3 K/uL (1.0-4.3); LYMPH % 4.1 % (20.0-40.0); MEAN CELL VOLUME 89.1 fL (81.0-99.0); MEAN CORPUSCULAR HEMOGLOBIN 28.2 pg (27.0-31.0); MEAN CORPUSCULAR HGB CONC 31.7 g/dL (33.0-37.0); MEAN PLATELET VOLUME 12.5 fL (7.2-11.7); MONO # 0.5 K/uL (0.0-0.8); MONO % 6.3 % (0.0-10.0); NEUT # 6.8 K/uL (1.8-7.0); NEUT % 89.3 % (50.0-75.0); NRBC % 0.1 % (0.0-2.0); PLATELET COUNT 152 K/uL (130-400); RBC 4.28 Mil/uL (3.80-5.20); RED CELL DISTRIBUTION WIDTH 17.9 % (11.5-14.5); WHITE BLOOD COUNT 7.7 K/uL (4.8-10.8)
[2016-11-25 09:46] LABS: ALBUMIN 2.1 g/dL (3.5-5.0)
[2016-11-25 09:50] LABS: CALCIUM 7.3 mg/dl (8.6-10.4); MAGNESIUM 2.4 mg/dL (1.6-2.3)
[2016-11-25 10:01] LABS: ALB/GLOB RATIO 0.8 (1.0-2.1)
[2016-11-25] MEDS: Dorzolamide 2% Opht Sol 10ml OU SCH ×2 (11:15→17:52)
[2016-11-25] MEDS: Saccharomyces Boulardi 250 mg Cap PO SCH ×2 (11:16→17:46)
[2016-11-25] MEDS: MethylPREDNISolone 40 mg Vial IVP SCH ×2 (11:16→22:59)
[2016-11-25] MEDS: Hydrocortisone 2.5% Rectal Cream(30 gm) PR SCH ×3 (11:16→22:59)
[2016-11-25 11:17] LABS: LYMPHOCYTE 4 % (20-40); MONOCYTE 5 % (0-10); NEUTROPHIL 91 % (50-75); PLATELET ESTIMATE NORMAL (NORMAL); TOTAL CELLS COUNTED 100
--- NOTE | 2016-11-25 12:51 | CP.PCM.PN ---
Subjective - Date & Time of Evaluation Date of Evaluation: 11/25/16 Time of Evaluation: 12:49 - Subjective Subjective: pt seen and examined by me, c/o lower back pain, no sob, s/p hd this morning, had a uf about 2 lit, on peg feeding Objective - Vital Signs/Intake and Output Vital Signs (last 24 hours): Temp Pulse Resp BP Pulse Ox 98.3 F 80 20 95/49 L 99 11/25/16 09:00 11/25/16 09:00 11/25/16 09:00 11/25/16 11:00 11/25/16 09:00 Intake and Output: 11/25/16 11/25/16 06:59 18:59 Intake Total 300 Output Total 450 Balance -150 - Medications Medications: Current Medications Acetylcysteine (Acetylcysteine 20%) 4 ml INH RQ6 [facility] Last Admin: 11/25/16 07:38 Dose: 4 ml Albuterol/Ipratropium (Duoneb 3 Mg/0.5 Mg (3 Ml) Ud) 3 ml INH RQ6 [facility] Last Admin: 11/25/16 07:38 Dose: 3 ml Amlodipine Besylate (Norvasc) 5 mg PO DAILY [facility] Last Admin: 11/24/16 10:38 Dose: 5 mg Aspirin (Aspirin Chewable) 81 mg NG DAILY [facility] Last Admin: 11/24/16 10:39 Dose: 81 mg Carvedilol (Coreg) 25 mg PO Q12 [facility] Last Admin: 11/25/16 11:16 Dose: Not Given Dorzolamide HCl (Trusopt) 0 ml OU BID [facility] Last Admin: 11/25/16 11:15 Dose: Not Given Famotidine (Pepcid) 20 mg IVP DAILY [facility] Last Admin: 11/24/16 10:42 Dose: 20 mg Gabapentin (Neurontin) 100 mg PO TID [facility] Last Admin: 11/25/16 11:16 Dose: Not Given Hydralazine HCl (Apresoline) 10 mg IVP Q6H PRN PRN Reason: SBP above 180 mm Hg Last Admin: 11/20/16 11:47 Dose: 10 mg Hydrocortisone (Anusol-Hc) 0 gm [place] BID [facility] Last Admin: 11/25/16 11:16 Dose: Not Given Tigecycline 50 mg/ Sodium (Chloride) 100 mls @ 100 mls/hr IVPB Q12H [facility] Insulin Glargine (Lantus) 10 unit SC [facility] Last Admin: 11/24/16 21:38 Dose: 10 units Insulin Human Regular (Novolin R) 0 unit SC Q6H [facility] PRN Reason: Protocol Last Admin: 11/25/16 08:20 Dose: 1 unit Methylprednisolone (Solu-Medrol) 40 mg IVP Q12 [facility] Last Admin: 11/25/16 11:16 Dose: Not Given Rosuvastatin Calcium (Crestor) 10 mg PO HS [facility] Last Admin: 11/24/16 21:36 Dose: 10 mg Saccharomyces Boulardii (Florastor) 250 mg PO BID [facility] Last Admin: 11/25/16 11:16 Dose: Not Given - Labs Labs: 11/25/16 09:08 11/25/16 09:08 PT 11.5 SECONDS (9.7-12.2) 11/16/16 06:08 INR 1.0 11/16/16 06:08 APTT 31 SECONDS (21-34) 11/16/16 06:08 - Constitutional Appears: Well, No Acute Distress - Head Exam Head Exam: ATRAUMATIC, NORMAL INSPECTION, NORMOCEPHALIC - Eye Exam Eye Exam: EOMI, Normal appearance, PERRL Pupil Exam: NORMAL ACCOMODATION, PERRL - ENT Exam ENT Exam: Mucous Membranes Moist - Neck Exam Neck Exam: Full ROM, Normal Inspection - Respiratory Exam Respiratory Exam: Clear to Ausculation Bilateral, NORMAL BREATHING PATTERN Additional comments: symmetry, b/l bs+ - Cardiovascular Exam Cardiovascular Exam: REGULAR RHYTHM, +S1, +S2 - GI/Abdominal Exam GI & Abdominal Exam: Soft, Normal Bowel Sounds Additional comments: non tender , no guarding, no rigidity - Rectal Exam Rectal Exam: Deferred - Extremities Exam Additional comments: B/L aka - Neurological Exam Neurological Exam: Alert, Awake Additional comments: oriented x 2-3 Assessment and Plan - Assessment and Plan (Free Text) Plan: 61 yo HF with pmh/o htn,dm, chf, copd/asthma esrd, s/p peg was admitted with sob , ams, resp. failure, pneumonia, s/p extubation 1. ESRD, c/w hd 3 x aweek TTS 2. HTn, bp is stable c/w, norvasc, hydralazine, coerg 3. COPD, c/w solumedrol and anhaller as per pulmonary 4. DM, continue insulin , follow up accuchecks 5. Pneumonia, c/w iv abx as per pulmonary/ID
--- NOTE | 2016-11-25 15:34 | CP.PCM.PN ---
Subjective - Date & Time of Evaluation Date of Evaluation: 11/25/16 Time of Evaluation: 12:00 - Subjective Subjective: patient seen and examined. Lying comfortably in no acute distress Complaining of slight cough Afebrile Objective - Vital Signs/Intake and Output Vital Signs (last 24 hours): Temp Pulse Resp BP Pulse Ox 97.6 F 73 20 133/77 99 11/25/16 12:00 11/25/16 12:00 11/25/16 09:00 11/25/16 12:00 11/25/16 09:00 Intake and Output: 11/25/16 11/25/16 06:59 18:59 Intake Total 300 Output Total 450 Balance -150 - Medications Medications: Current Medications Acetylcysteine (Acetylcysteine 20%) 4 ml INH RQ6 [facility] Last Admin: 11/25/16 13:25 Dose: 4 ml Albuterol/Ipratropium (Duoneb 3 Mg/0.5 Mg (3 Ml) Ud) 3 ml INH RQ6 [facility] Last Admin: 11/25/16 13:25 Dose: 3 ml Amlodipine Besylate (Norvasc) 5 mg PO DAILY [facility] Last Admin: 11/25/16 13:13 Dose: 5 mg Aspirin (Aspirin Chewable) 81 mg NG DAILY [facility] Last Admin: 11/25/16 12:53 Dose: 81 mg Benzonatate (Tessalon Perles) 100 mg PO TID PRN PRN Reason: Sore Throat Carvedilol (Coreg) 25 mg PO Q12 [facility] Last Admin: 11/25/16 11:16 Dose: Not Given Dorzolamide HCl (Trusopt) 0 ml OU BID [facility] Last Admin: 11/25/16 11:15 Dose: Not Given Famotidine (Pepcid) 20 mg IVP DAILY [facility] Last Admin: 11/25/16 12:54 Dose: 20 mg Gabapentin (Neurontin) 100 mg PO TID [facility] Last Admin: 11/25/16 13:01 Dose: 100 mg Hydralazine HCl (Apresoline) 10 mg IVP Q6H PRN PRN Reason: SBP above 180 mm Hg Last Admin: 11/20/16 11:47 Dose: 10 mg Hydrocortisone (Anusol-Hc) 0 gm [place] Q8H [facility] Tigecycline 50 mg/ Sodium (Chloride) 100 mls @ 100 mls/hr IVPB Q12H [facility] Last Admin: 11/25/16 12:55 Dose: 100 mls/hr Insulin Glargine (Lantus) 10 unit SC HS [facility] Last Admin: 11/24/16 21:38 Dose: 10 units Insulin Human Regular (Novolin R) 0 unit SC Q6H [facility] PRN Reason: Protocol Last Admin: 11/25/16 12:54 Dose: 1 unit Methylprednisolone (Solu-Medrol) 40 mg IVP Q12 [facility] Last Admin: 11/25/16 11:16 Dose: Not Given Rosuvastatin Calcium (Crestor) 10 mg PO HS [facility] Last Admin: 11/24/16 21:36 Dose: 10 mg Saccharomyces Boulardii (Florastor) 250 mg PO BID [facility] Last Admin: 11/25/16 11:16 Dose: Not Given - Labs Labs: 11/25/16 09:08 11/25/16 09:08 PT 11.5 SECONDS (9.7-12.2) 11/16/16 06:08 INR 1.0 11/16/16 06:08 APTT 31 SECONDS (21-34) 11/16/16 06:08 - Head Exam Head Exam: ATRAUMATIC, NORMOCEPHALIC - Eye Exam Eye Exam: Normal appearance - ENT Exam ENT Exam: Mucous Membranes Moist - Neck Exam Neck Exam: Normal Inspection - Respiratory Exam Respiratory Exam: Clear to Ausculation Bilateral - Cardiovascular Exam Cardiovascular Exam: REGULAR RHYTHM Assessment and Plan (1) Collapse of left lung Assessment & Plan: status post bronchoscopy and reexpansion of left Continue nebulizer treatment and Mucomyst Continue antibiotics BiPAP at night Status: Acute (2) Hypokalemia Status: Acute (3) COPD (chronic obstructive pulmonary disease) Status: Chronic (4) ESRD (end stage renal disease) on dialysis Status: Chronic
[2016-11-25] MEDS: (Lantus) Insulin Glargine, Recombinant SC SCH (22:59)
[2016-11-26] MEDS: (Novolin R) Insulin Human Regular 100 units/ml vial SC SCH ×4 (00:45→17:44)
[2016-11-26] MEDS: Acetylcysteine 20% Inhal Soln (4ml) INH SCH ×4 (01:26→19:37)
[2016-11-26] MEDS: Albuterol-Ipratrop 3 mg / 0.5 (3 ml) UD INH SCH ×4 (01:26→19:37)
[2016-11-26 08:23] LABS: BASO # 0.1 K/uL (0.0-0.2); BASO % 0.8 % (0.0-2.0); HEMOGLOBIN 12.4 g/dL (11.0-16.0); LYMPH # 0.4 K/uL (1.0-4.3); LYMPH % 2.8 % (20.0-40.0); MEAN CELL VOLUME 89.3 fL (81.0-99.0); MEAN CORPUSCULAR HEMOGLOBIN 27.8 pg (27.0-31.0); MEAN CORPUSCULAR HGB CONC 31.2 g/dL (33.0-37.0); MEAN PLATELET VOLUME 12.1 fL (7.2-11.7); MONO # 0.3 K/uL (0.0-0.8); MONO % 2.2 % (0.0-10.0); NEUT # 14.1 K/uL (1.8-7.0); NEUT % 94.2 % (50.0-75.0); NRBC % 0.1 % (0.0-2.0); PLATELET COUNT 137 K/uL (130-400); RBC 4.44 Mil/uL (3.80-5.20); RED CELL DISTRIBUTION WIDTH 18.5 % (11.5-14.5)
[2016-11-26 08:46] LABS: ALBUMIN 2.1 g/dL (3.5-5.0)
[2016-11-26 08:49] LABS: ALB/GLOB RATIO 0.8 (1.0-2.1); CALCIUM 7.1 mg/dl (8.6-10.4); MAGNESIUM 2.1 mg/dL (1.6-2.3)
[2016-11-26 09:18] LABS: LYMPHOCYTE 3 % (20-40); MONOCYTE 2 % (0-10); NEUTROPHIL 95 % (50-75); PLATELET ESTIMATE NORMAL (NORMAL); TOTAL CELLS COUNTED 100
--- NOTE | 2016-11-26 10:30 | CP.PCM.PN ---
Subjective - Date & Time of Evaluation Date of Evaluation: 11/26/16 Time of Evaluation: 10:30 - Subjective Subjective: Medicine Progress Note- Dr. Esqueda Service Patient was seen and examined at bedside in no acute distress. Patient was in a pleasant mood. She complained of needing to go to the bathroom. Patient is orients to self but no place or time. Patient denies having chest pain, abdominal pain, nausea, vomiting, and headache. Objective - Vital Signs/Intake and Output Vital Signs (last 24 hours): Temp Pulse Resp BP Pulse Ox 97.8 F 87 20 194/72 H 97 11/26/16 08:17 11/26/16 08:17 11/26/16 08:17 11/26/16 08:17 11/26/16 08:17 - Medications Medications: Current Medications Acetylcysteine (Acetylcysteine 20%) 4 ml INH RQ6 [facility] Last Admin: 11/26/16 08:49 Dose: 4 ml Albuterol/Ipratropium (Duoneb 3 Mg/0.5 Mg (3 Ml) Ud) 3 ml INH RQ6 [facility] Last Admin: 11/26/16 08:49 Dose: 3 ml Amlodipine Besylate (Norvasc) 5 mg PO DAILY [facility] Last Admin: 11/25/16 13:13 Dose: 5 mg Aspirin (Aspirin Chewable) 81 mg NG DAILY [facility] Last Admin: 11/25/16 12:53 Dose: 81 mg Benzonatate (Tessalon Perles) 100 mg PO TID PRN PRN Reason: Sore Throat Carvedilol (Coreg) 25 mg PO Q12 [facility] Last Admin: 11/25/16 22:59 Dose: 25 mg Dorzolamide HCl (Trusopt) 0 ml OU BID [facility] Last Admin: 11/25/16 17:52 Dose: 1 drop Famotidine (Pepcid) 20 mg IVP DAILY [facility] Last Admin: 11/25/16 12:54 Dose: 20 mg Gabapentin (Neurontin) 100 mg PO TID [facility] Last Admin: 11/25/16 17:46 Dose: 100 mg Hydralazine HCl (Apresoline) 10 mg IVP Q6H PRN PRN Reason: SBP above 180 mm Hg Last Admin: 11/25/16 17:46 Dose: 10 mg Hydrocortisone (Anusol-Hc) 0 gm AK Q8H [facility] Last Admin: 11/25/16 22:59 Dose: 1 applic Tigecycline 50 mg/ Sodium (Chloride) 100 mls @ 100 mls/hr IVPB Q12H [facility] Last Admin: 11/25/16 22:59 Dose: 100 mls/hr Insulin Glargine (Lantus) 10 unit SC HS [facility] Last Admin: 11/25/16 22:59 Dose: 10 units Insulin Human Regular (Novolin R) 0 unit SC Q6H [facility] PRN Reason: Protocol Last Admin: 11/26/16 08:20 Dose: Not Given Methylprednisolone (Solu-Medrol) 40 mg IVP Q12 [facility] Last Admin: 11/25/16 22:59 Dose: 40 mg Rosuvastatin Calcium (Crestor) 10 mg PO HS [facility] Last Admin: 11/25/16 22:59 Dose: 10 mg Saccharomyces Boulardii (Florastor) 250 mg PO BID [facility] Last Admin: 11/25/16 17:46 Dose: 250 mg - Labs Labs: 11/26/16 08:00 11/26/16 08:00 PT 11.5 SECONDS (9.7-12.2) 11/16/16 06:08 INR 1.0 11/16/16 06:08 APTT 31 SECONDS (21-34) 11/16/16 06:08 - Constitutional Appears: No Acute Distress - Head Exam Head Exam: NORMAL INSPECTION, NORMOCEPHALIC - Eye Exam Eye Exam: EOMI, Normal appearance - ENT Exam ENT Exam: Mucous Membranes Moist - Neck Exam Neck Exam: Normal Inspection - Respiratory Exam Respiratory Exam: absent: Clear to Ausculation Bilateral, Rhonchi, Wheezes - Cardiovascular Exam Cardiovascular Exam: +S1, +S2 - GI/Abdominal Exam GI & Abdominal Exam: Soft, Normal Bowel Sounds - Extremities Exam Extremities Exam: absent: Normal Inspection Additional comments: b/l AKA - Neurological Exam Neurological Exam: Alert, Awake. absent: Oriented x3 - Psychiatric Exam Psychiatric exam: Normal Affect, Normal Mood - Skin Skin Exam: Dry, Intact, Normal Color, Warm Assessment and Plan (1) Acute respiratory failure Assessment & Plan: Intubated in the ED on admission PH: 7.04, CO2: 124 on admission History of COPD Pulmonary consult (Dr. Quach)--->help appreciated Duonebs 3ml INH RQ8 HR Solumedrol 40mg IVP Q 12 hours Extubation 11/18 Chest xray (11/15/16): possible small left pleural effusion. Line and tubes are unchanged Chest Xray 11/16/16): No active disease Chest xray (11/19/16): moderate bilateral pleural effusionsm larger on left; bibasilare atelectasis/pneumonia cannot be excluded. Chest Xray (11/21/16): Interval near complete opacification of the left opal thorax. Suggestive for lung collapse and or pleural effusion. - Bronchoscope performed (Dr. Quach) 11/21/16): Thick secretions were aspirated and mucomyst 2cc was infused. Chest xray (11/22/16): severe cardiomegaly, pulmonary venous congestion and small left pleural effusion. Chest xray (11/24/16): possible small left pleural effusion. no infiltrate Sputum culture (11/18/16): gram negative ariadne Sputum culture (11/16/16): Klebsiella pneumoniae, multidrug resistant Infectious disease (Dr. Anne) on board-->help appreciated Tigeyclcine 50mg IV 12 hours- day 2 (Active since 11/19/16); changed from Maxipime 1 gram IV Q 24hours Monitor WBCs (13.9 on 11/20/16) 7.9 on 11/24/16 Aspiration precaution initiated Head of bed 30 degree ordered Swallow eval- failed; patient is to remain on NPO diet (11/26/16) ABG (11/26/16)- f/u Status: Acute (2) COPD (chronic obstructive pulmonary disease) Assessment & Plan: Pulmonary Consult (Dr. Quach)-->on board help appreciated-->taper steroids Solumdedrol 40mg IV Q 12hours Duonebs 3ml INH RQ8HR Chest xray (11/22/16): severe cardiomegaly, pulmonary venous congestion and small left pleural effusion. Chest xray (11/24/16): possible small left pleural effusion. no infiltrate Status: Chronic (3) Hyperlipidemia Assessment & Plan: Lipid panel: TG mildly elevated Crestor 10mg POqHS Status: Chronic (4) Congestive heart failure Assessment & Plan: Echocardiogram (10/02/16): left ventricle systolic function is normal, EF: 65-70% , no aortic regurgitation is present, mitral regurgitation is mild, mild trciuspid regurgitation, mild pulmonary hypertension, mild pulmonic valvular regurgitation Patient recently started on dialysis about 2 weeks ago Patient had dialysis on 11/25/16 Crestor 10mg POqHS Aspirin 81mg PO daily Coreg 25mg PO Q12 Status: Chronic (5) Thrombocytopenia Assessment & Plan: Discontinued Heparin 5000 units subq 12 hours 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 Saeed, help appreciated Patient recently started on dialysis about 2 weeks ago at [place] per review of EMR Dialysis: T/[facility]/Sat Received dialysis on 11/25/16 Status: Chronic (7) Diabetes mellitus Assessment & Plan: Accuchecks Q6H Insulin sliding scale subq6H Hgba1c: 5.0 controlled Lantus 10 units subqHS Neurotonin 100mg PO tid Status: Chronic (8) HTN (hypertension) Assessment & Plan: Monitor blood pressure Coreg 25mg PO Q12 Norvasc 5mg PO daily Status: Chronic (9) Diarrhea Assessment & Plan: Pepcid 20mg IVq daily Blood cultures (11/14/16): no growth X 4 days X2 Urine culture (11/14/16): no growth MRSA (11/15/16): MRSA not detected Blood culture (11/16/16): no growth after 48 hours 11/16/16: No salmonella, shigella, or campylobacter Urine culture: no growth Florastor 250mg PO bid C dif: negative on 11/16, 11/20, 11/21, 11/22 Anusol increased to TID 11/25/16 Status: Acute (10) Malnutrition Assessment & Plan: Low albumin at 2.1 (11/24/16) Manager Administrative Services consulted Tube feeding rate @25ml/hr as of 11/25/16 Goal as per metal sprayer production is 35ml/hr Status: Acute (11) Leukocytosis Assessment & Plan: Sputum culture (11/18/16): Klebsiella pneumoniae-->on Tigecycline Sputum culture (11/16/16): Klebsiella pneumoniae Infectious disease (Dr. Anne) on board-->help appreciated Tigeyclcine 50mg IV 12 hours (Active since 11/19/16); changed from Maxipime 1 gram IV Q 24hours Has PICC line Contact precautions May need repeat cultures if continues to uptrend Chest xray (11/22/16): severe cardiomegaly, pulmonary venous congestion and small left pleural effusion. Chest xray (11/24/16): possible small left pleural effusion. no infiltrate Blood cultures (11/14/16): no growth X 5days Urine culture (11/14/16): no growth MRSA (11/15/16): MRSA not detected Blood culture (11/16/16): no growth after 3 days 11/16/16: No salmonella, shigella, or campylobacter Urine culture: no growth Florastor 250mg PO bid C dif: negative Has bahena, PICC line, and rectocel Patients WBC on 11/26/16: 15 UA: f/u Urine cx: f/u Blood cx: f/u Status: Acute (12) Prophylactic measure Assessment & Plan: Pepcid 20mg IV q daily Florastor 250mg PO bid Turn Q2 hours Wound care Palliative care consult Swallow eval orderd 11/25/16 Status: Acute
[2016-11-26] MEDS: Hydrocortisone 2.5% Rectal Cream(30 gm) PR SCH ×2 (11:04→16:30)
[2016-11-26] MEDS: Dorzolamide 2% Opht Sol 10ml OU SCH ×3 (11:05→17:51)
[2016-11-26] MEDS: Saccharomyces Boulardi 250 mg Cap PO SCH ×2 (11:05→17:51)
[2016-11-26] MEDS: MethylPREDNISolone 40 mg Vial IVP SCH ×2 (11:06→21:43)
--- NOTE | 2016-11-26 12:02 | CP.PCM.PN ---
Subjective - Date & Time of Evaluation Date of Evaluation: 11/26/16 Time of Evaluation: 12:00 - Subjective Subjective: pt seen and examined by me, pt is not in acute distress, c/o lower back pain, + rectal tube and bahena cath+ Objective - Vital Signs/Intake and Output Vital Signs (last 24 hours): Temp Pulse Resp BP Pulse Ox 97.8 F 87 20 194/72 H 97 11/26/16 08:17 11/26/16 08:17 11/26/16 08:17 11/26/16 11:05 11/26/16 08:17 - Medications Medications: Current Medications Acetylcysteine (Acetylcysteine 20%) 4 ml INH RQ6 [facility] Last Admin: 11/26/16 08:49 Dose: 4 ml Albuterol/Ipratropium (Duoneb 3 Mg/0.5 Mg (3 Ml) Ud) 3 ml INH RQ6 [facility] Last Admin: 11/26/16 08:49 Dose: 3 ml Amlodipine Besylate (Norvasc) 5 mg PO DAILY [facility] Last Admin: 11/26/16 11:05 Dose: 5 mg Aspirin (Aspirin Chewable) 81 mg NG DAILY [facility] Last Admin: 11/26/16 11:03 Dose: 81 mg Benzonatate (Tessalon Perles) 100 mg PO TID PRN PRN Reason: Sore Throat Carvedilol (Coreg) 25 mg PO Q12 [facility] Last Admin: 11/26/16 11:05 Dose: 25 mg Dorzolamide HCl (Trusopt) 0 ml OU BID [facility] Last Admin: 11/26/16 11:06 Dose: 1 drop Famotidine (Pepcid) 20 mg IVP DAILY [facility] Last Admin: 11/26/16 11:04 Dose: 20 mg Gabapentin (Neurontin) 100 mg PO TID [facility] Last Admin: 11/26/16 11:06 Dose: 100 mg Hydralazine HCl (Apresoline) 10 mg IVP Q6H PRN PRN Reason: SBP above 180 mm Hg Last Admin: 11/25/16 17:46 Dose: 10 mg Hydrocortisone (Anusol-Hc) 0 gm [place] Q8H [facility] Last Admin: 11/26/16 11:04 Dose: 1 applic Tigecycline 50 mg/ Sodium (Chloride) 100 mls @ 100 mls/hr IVPB Q12H [facility] Last Admin: 11/26/16 11:04 Dose: 100 mls/hr Insulin Glargine (Lantus) 10 unit SC HS [facility] Last Admin: 11/25/16 22:59 Dose: 10 units Insulin Human Regular (Novolin R) 0 unit SC Q6H [facility] PRN Reason: Protocol Last Admin: 11/26/16 08:20 Dose: Not Given Methylprednisolone (Solu-Medrol) 40 mg IVP Q12 [facility] Last Admin: 11/26/16 11:06 Dose: 40 mg Rosuvastatin Calcium (Crestor) 10 mg PO HS [facility] Last Admin: 11/25/16 22:59 Dose: 10 mg Saccharomyces Boulardii (Florastor) 250 mg PO BID [facility] Last Admin: 11/26/16 11:05 Dose: 250 mg - Labs Labs: 11/26/16 08:00 11/26/16 08:00 PT 11.5 SECONDS (9.7-12.2) 11/16/16 06:08 INR 1.0 11/16/16 06:08 APTT 31 SECONDS (21-34) 11/16/16 06:08 - Constitutional Appears: Well, No Acute Distress - Head Exam Head Exam: ATRAUMATIC, NORMAL INSPECTION, NORMOCEPHALIC - Eye Exam Eye Exam: EOMI, Normal appearance Pupil Exam: NORMAL ACCOMODATION, PERRL - ENT Exam ENT Exam: Mucous Membranes Moist - Neck Exam Neck Exam: Full ROM, Normal Inspection - Respiratory Exam Respiratory Exam: Clear to Ausculation Bilateral, NORMAL BREATHING PATTERN - Cardiovascular Exam Cardiovascular Exam: REGULAR RHYTHM, +S1, +S2 - GI/Abdominal Exam GI & Abdominal Exam: Soft, Normal Bowel Sounds Additional comments: no guarding, no rigidity - Rectal Exam Rectal Exam: Deferred - Extremities Exam Additional comments: b/l AKA - Neurological Exam Neurological Exam: Alert, Awake, Oriented x3 - Psychiatric Exam Psychiatric exam: Normal Affect, Normal Mood - Skin Skin Exam: Normal Color, Warm Assessment and Plan - Assessment and Plan (Free Text) Plan: 61 yo HF with htn, dm, copd, chf, pneumonia, esrd, s/p extubation 1. ESRD, c/w hd 3 x aweek TTS 2. HTN, bp is stable, c/w coreg, hydralazine, norvasc 3. Pneumonia, c/w iv abx a sper pulmonary
--- NOTE | 2016-11-26 13:31 | CP.PCM.CON ---
History of Present Illness - History of Present Illness History of Present Illness: Palliative consult Requested by Tone GARDNER Reason: End of life care discussion Patient is a 61 yo female admitted from CT with AMS and vomiting. In ED patient was unresponsive in acute respiratory failure needing the intubation and MV support. CXR was significant for Pneumonia. Tygacil IV, Solu Medrol, and Neb Tx. Started. Patient was also found to have sputum C&S positive. Patient extubated on 11/18/16 and transferred to floor on o2 via NC. PMH: ESKD on HD, COPD, anemia, DM, B/L BKA Soc. Hx: , [place] resident, has 2 sons Fam . Hx: father from complications of DM and HTN, mother of unknown causes when patient as 4 yo Review of Systems - Constitutional Constitutional: Weakness - EENT Eyes: absent: As Per HPI, Blind Spots, Blurred Vision, Change in Vision, Decreased Night Vision, Diplopia, Discharge, Dry Eye, Exophthalmos, Floaters, Irritation, Itchy Eyes, Loss of Peripheral Vision, Pain, Photophobia, Requires Corrective Lenses, Sees Flashes, Spots in Vision, Tunnel Vision, Other Visual Disturbances, Loss of Vision, Other Ears: absent: As Per HPI, Decreased Hearing, Ear Discharge, Ear Pain, Tinnitus, Abnormal Hearing, Disequilibrium, Dizziness, Other Nose/Mouth/Throat: absent: As Per HPI, Epistaxis, Nasal Congestion, Nasal Discharge, Nasal Obstruction, Nasal Trauma, Nose Pain, Post Nasal Drip, Sinus Pain, Sinus Pressure, Bleeding Gums, Change in Voice, Dental Pain, Dry Mouth, Dysphagia, Halitosis, Hoarsness, Lip Swelling, Mouth Lesions, Mouth Pain, Odynophagia, Sore Throat, Throat Swelling, Tongue Swelling, Facial Pain, Neck Pain, Neck Mass, Other - Breasts Breasts: absent: As Per HPI, Change in Shape, Mass, Pain, Nipple Discharge, Nipple Inversion, Skin Changes, Swelling, Other - Cardiovascular Cardiovascular: Dyspnea - Respiratory Respiratory: Dyspnea - Gastrointestinal Gastrointestinal: Diarrhea - Genitourinary Additional comments: On HD - Reproductive: Female Reproductive:Female: Post Menopausal - Menstruation Menstruation: Post Menopausal - Musculoskeletal Additional comments: B/L BKA - Integumentary Integumentary: Dry Skin - Neurological Neurological: Confusion, Memory Loss, Weakness - Psychiatric Psychiatric: Difficulty Concentrating, Memory Loss - Endocrine Endocrine: Change in Body Appearance - Hematologic/Lymphatic Hematologic: absent: As Per HPI, Easy Bleeding, Easy Bruising, Lymphadenopathy, Other Past Patient History - Infectious Disease Hx of Infectious Diseases: None - Past Medical History & Family History Past Medical History?: Yes - Past Social History Smoking Status: Never Smoked - CARDIAC Hx Hypertension: Yes - PULMONARY Hx Chronic Obstructive Pulmonary Disease (COPD): Yes (ASTHMA,) - HEENT Hx HEENT Problems: Yes (WEARS RX GLASSES) Hx Glaucoma: Yes - RENAL Hx Chronic Kidney Disease: Yes - ENDOCRINE/METABOLIC Hx Diabetes Mellitus Type 2: Yes - HEMATOLOGICAL/ONCOLOGICAL Hx Anemia: Yes - INTEGUMENTARY Hx Dermatological Problems: Yes Other/Comment: notes from last pt visit/previous triage:redness under both breasts and b/l abd folds, healed skin to buttocks and sacrum - GASTROINTESTINAL Hx Gastrointestinal Disorders: Yes Other/Comment: obesity - GENITOURINARY/GYNECOLOGICAL Hx Genitourinary Disorders: Yes Hx Incontinence: Yes Hx Urinary Tract Infection: Yes - PSYCHIATRIC Hx Anxiety: Yes Hx Depression: Yes Hx Substance Use: No - ANESTHESIA Hx Anesthesia: Yes Hx Anesthesia Reactions: No Hx Malignant Hyperthermia: No Meds Allergies/Adverse Reactions: Allergies Allergy/AdvReac Type Severity Reaction Status Date / Time cilastatin sodium Allergy RASH Verified 11/14/16 18:46 [From Primaxin] imipenem [From Primaxin] Allergy RASH Verified 11/14/16 18:46 oxycodone Allergy RASH Verified 11/14/16 18:46 - Medications Medications: Current Medications Acetylcysteine (Acetylcysteine 20%) 4 ml INH RQ6 [facility] Last Admin: 11/26/16 08:49 Dose: 4 ml Albuterol/Ipratropium (Duoneb 3 Mg/0.5 Mg (3 Ml) Ud) 3 ml INH RQ6 [facility] Last Admin: 11/26/16 08:49 Dose: 3 ml Amlodipine Besylate (Norvasc) 5 mg PO DAILY [facility] Last Admin: 11/26/16 11:05 Dose: 5 mg Aspirin (Aspirin Chewable) 81 mg NG DAILY [facility] Last Admin: 11/26/16 11:03 Dose: 81 mg Benzonatate (Tessalon Perles) 100 mg PO TID PRN PRN Reason: Sore Throat Carvedilol (Coreg) 25 mg PO Q12 [facility] Last Admin: 11/26/16 11:05 Dose: 25 mg Dorzolamide HCl (Trusopt) 0 ml OU BID [facility] Last Admin: 11/26/16 11:06 Dose: 1 drop Famotidine (Pepcid) 20 mg IVP DAILY [facility] Last Admin: 11/26/16 11:04 Dose: 20 mg Gabapentin (Neurontin) 100 mg PO TID [facility] Last Admin: 11/26/16 11:06 Dose: 100 mg Hydralazine HCl (Apresoline) 10 mg IVP Q6H PRN PRN Reason: SBP above 180 mm Hg Last Admin: 11/25/16 17:46 Dose: 10 mg Hydrocortisone (Anusol-Hc) 0 gm [place] Q8H [facility] Last Admin: 11/26/16 11:04 Dose: 1 applic Tigecycline 50 mg/ Sodium (Chloride) 100 mls @ 100 mls/hr IVPB Q12H [facility] Last Admin: 11/26/16 11:04 Dose: 100 mls/hr Insulin Glargine (Lantus) 10 unit SC [facility] Last Admin: 11/25/16 22:59 Dose: 10 units Insulin Human Regular (Novolin R) 0 unit SC Q6H [facility] PRN Reason: Protocol Last Admin: 11/26/16 08:20 Dose: Not Given Methylprednisolone (Solu-Medrol) 40 mg IVP Q12 [facility] Last Admin: 11/26/16 11:06 Dose: 40 mg Rosuvastatin Calcium (Crestor) 10 mg PO [facility] Last Admin: 11/25/16 22:59 Dose: 10 mg Saccharomyces Boulardii (Florastor) 250 mg PO BID [facility] Last Admin: 11/26/16 11:05 Dose: 250 mg Physical Exam - Constitutional Appears: Chronically Ill - Head Exam Head Exam: ATRAUMATIC, NORMAL INSPECTION, NORMOCEPHALIC - Eye Exam Eye Exam: EOMI, Normal appearance, PERRL Pupil Exam: NORMAL ACCOMODATION, PERRL - ENT Exam ENT Exam: Mucous Membranes Moist, Normal Exam Additional comments: NGT for feedings - Neck Exam Neck exam: Positive for: Normal Inspection - Respiratory Exam Respiratory Exam: Decreased Breath Sounds, NORMAL BREATHING PATTERN - Cardiovascular Exam Cardiovascular Exam: Tachycardia, REGULAR RHYTHM, +S1, +S2 - GI/Abdominal Exam GI & Abdominal Exam: Normal Bowel Sounds, Soft - Rectal Exam Additional comments: Rectal ppuch in place - Exam Additional comments: Allred cath - Extremities Exam Additional comments: B/L BKA - Back Exam Back exam: NORMAL INSPECTION - Neurological Exam Neurological exam: Alert, Altered - Psychiatric Exam Psychiatric exam: Flat Affect - Skin Skin Exam: Dry, Normal Color, Warm Results - Vital Signs Recent Vital Signs: Last Vital Signs Temp 97.8 F 11/26/16 08:17 Pulse 87 11/26/16 08:17 Resp 20 11/26/16 08:17 BP 194/72 H 11/26/16 11:05 Pulse Ox 97 11/26/16 08:17 - Labs Result Diagrams: 11/26/16 08:00 11/26/16 08:00 Labs: Laboratory Results - last 24 hr 11/22/16 11/25/16 11/25/16 17:52 17:24 21:49 WBC RBC Hgb Hct MCV MCH MCHC RDW Plt Count MPV Neut % (Auto) Lymph % (Auto) Bennett % (Auto) Eos % (Auto) Baso % (Auto) Neut # Lymph # Bennett # Eos # Baso # Neutrophils % (Manual) Lymphocytes % (Manual) Monocytes % (Manual) Platelet Estimate RBC Morphology Sodium Potassium Chloride Carbon Dioxide Anion Gap BUN Creatinine Est GFR ( Amer) Est GFR (Non-Af Amer) POC Glucose (mg/dL) 237 H 137 H 143 H Random Glucose Calcium Phosphorus Magnesium Total Bilirubin AST ALT Alkaline Phosphatase Total Protein Albumin Globulin Albumin/Globulin Ratio 11/26/16 11/26/16 11/26/16 00:18 06:42 08:00 WBC 15.0 H D RBC 4.44 Hgb 12.4 Hct 39.6 MCV 89.3 MCH 27.8 MCHC 31.2 L RDW 18.5 H Plt Count 137 MPV 12.1 H Neut % (Auto) 94.2 H Lymph % (Auto) 2.8 L Bennett % (Auto) 2.2 Eos % (Auto) 0.0 Baso % (Auto) 0.8 Neut # 14.1 H Lymph # 0.4 L Bennett # 0.3 Eos # 0.0 Baso # 0.1 Neutrophils % (Manual) 95 H Lymphocytes % (Manual) 3 L Monocytes % (Manual) 2 Platelet Estimate Normal RBC Morphology Normal Sodium Potassium Chloride Carbon Dioxide Anion Gap BUN Creatinine Est GFR ( Amer) Est GFR (Non-Af Amer) POC Glucose (mg/dL) 138 H 149 H Random Glucose Calcium Phosphorus Magnesium Total Bilirubin AST ALT Alkaline Phosphatase Total Protein Albumin Globulin Albumin/Globulin Ratio 11/26/16 11/26/16 08:00 12:06 WBC RBC Hgb Hct MCV MCH MCHC RDW Plt Count MPV Neut % (Auto) Lymph % (Auto) Bennett % (Auto) Eos % (Auto) Baso % (Auto) Neut # Lymph # Bennett # Eos # Baso # Neutrophils % (Manual) Lymphocytes % (Manual) Monocytes % (Manual) Platelet Estimate RBC Morphology Sodium 139 Potassium 3.7 Chloride 105 Carbon Dioxide 29 Anion Gap 9 L BUN 80 H Creatinine 2.2 H Est GFR ( Amer) 27 Est GFR (Non-Af Amer) 23 POC Glucose (mg/dL) 167 H Random Glucose 173 H Calcium 7.1 L Phosphorus 4.1 Magnesium 2.1 Total Bilirubin 0.6 AST 29 ALT 27 Alkaline Phosphatase 186 H D Total Protein 5.0 L Albumin 2.1 L Globulin 2.8 Albumin/Globulin Ratio 0.8 L Assessment & Plan - Assessment and Plan (Free Text) Assessment: Palliative consult Code status Full Code, no advance directive on chart I reviewed medical records, all diagnostic studies, examined patient in the bed and discussed goals of care over the phone with her son Jerry Nicole Except as marked, all systems reviewed and are negative. Patient is alert, in no acute distress. patient answers simple questions, makes eye contacts but has no recall of the events at time of admission and ICU stay. NGT in place. Swallow eval pending. Plan is to resume diet. Breath sounds are diminished to bases. Denies cough, chest pain. patient complains of lower back pain. B/L AKA. Flex seal in place, stool loose. BP 194/72, HR 87, O2Sat 975 NC, afebrile. WBC 15.0. Goals of care discussed with patient's son Mr. Jerry Nicole. Mr. Edwards has visited his mother yesterday and as per him , patient is resuming her base behavior but still shows memory loss and inability to concentrate. According to him, prior to this incident patient was fully alert, with clear speech and able to eat. Mr. Edwards is very devoted to his mother. He understands her complex medical Hx. However,, Mr. Edwards values longevity over the comfort and believes his mother is in the same way. he would want all appropriate medical intervetions to be applied to support his mother's life if it should be the case, including the MV assistance. Impression * Patient is recovering after the acute episode of respiratory distress, S/P extubation * Patient is alert, with memory loss, unable to advocate for her self * Patient is bed ridden at risk for pressure sore development * Patient's son Mr. Jerry Nicole is advocating for patient and prefers Full Code * There is body image disturbance, debility and need for full assistance with ADLs * * Suggestion * Promote safety * Promote skin integrity * Max assistance with ADLs * FULL CODE * Would transfer back to CT once the swallow eval successful Thank you for consulting palliative care
[2016-11-26 15:18] LABS: ABG ALLEN TEST A; ARTERIAL BLOOD GAS HCO3 27.3 mmol/L (21-28); ARTERIAL BLOOD GAS O2 SAT 97.5 % (95-98); ARTERIAL BLOOD GAS PCO2 38 mm/Hg (35-45); ARTERIAL BLOOD GAS PH 7.46 (7.35-7.45); ARTERIAL BLOOD GAS PO2 75 mm/Hg (80-100); ARTERIAL BLOOD GAS TCO2 28.2 mmol/L (22-28)
--- NOTE | 2016-11-26 16:26 | CP.PCM.PN ---
Subjective - Date & Time of Evaluation Date of Evaluation: 11/26/16 Time of Evaluation: 10:00 - Subjective Subjective: awake alert on tygacil for esbl + Klebs ngt in place Objective - Vital Signs/Intake and Output Vital Signs (last 24 hours): Temp Pulse Resp BP Pulse Ox 97.8 F 81 20 173/57 H 97 11/26/16 08:17 11/26/16 14:43 11/26/16 08:17 11/26/16 14:43 11/26/16 08:17 - Medications Medications: Current Medications Acetylcysteine (Acetylcysteine 20%) 4 ml INH RQ6 [facility] Last Admin: 11/26/16 15:47 Dose: Not Given Albuterol/Ipratropium (Duoneb 3 Mg/0.5 Mg (3 Ml) Ud) 3 ml INH RQ6 [facility] Last Admin: 11/26/16 15:47 Dose: Not Given Amlodipine Besylate (Norvasc) 5 mg PO DAILY [facility] Last Admin: 11/26/16 11:05 Dose: 5 mg Aspirin (Aspirin Chewable) 81 mg NG DAILY [facility] Last Admin: 11/26/16 11:03 Dose: 81 mg Benzonatate (Tessalon Perles) 100 mg PO TID PRN PRN Reason: Sore Throat Carvedilol (Coreg) 25 mg PO Q12 [facility] Last Admin: 11/26/16 11:05 Dose: 25 mg Dorzolamide HCl (Trusopt) 0 ml OU BID [facility] Last Admin: 11/26/16 11:06 Dose: 1 drop Famotidine (Pepcid) 20 mg IVP DAILY [facility] Last Admin: 11/26/16 11:04 Dose: 20 mg Gabapentin (Neurontin) 100 mg PO TID [facility] Last Admin: 11/26/16 14:34 Dose: 100 mg Hydralazine HCl (Apresoline) 10 mg IVP Q6H PRN PRN Reason: SBP above 180 mm Hg Last Admin: 11/26/16 14:43 Dose: 10 mg Hydrocortisone (Anusol-Hc) 0 gm [place] Q8H [facility] Last Admin: 11/26/16 11:04 Dose: 1 applic Tigecycline 50 mg/ Sodium (Chloride) 100 mls @ 100 mls/hr IVPB Q12H [facility] Last Admin: 11/26/16 11:04 Dose: 100 mls/hr Insulin Glargine (Lantus) 10 unit SC HS [facility] Last Admin: 11/25/16 22:59 Dose: 10 units Insulin Human Regular (Novolin R) 0 unit SC Q6H [facility] PRN Reason: Protocol Last Admin: 11/26/16 14:34 Dose: 1 unit Methylprednisolone (Solu-Medrol) 40 mg IVP Q12 [facility] Last Admin: 11/26/16 11:06 Dose: 40 mg Rosuvastatin Calcium (Crestor) 10 mg PO HS [facility] Last Admin: 11/25/16 22:59 Dose: 10 mg Saccharomyces Boulardii (Florastor) 250 mg PO BID [facility] Last Admin: 11/26/16 11:05 Dose: 250 mg - Labs Labs: 11/26/16 08:00 11/26/16 08:00 PT 11.5 SECONDS (9.7-12.2) 11/16/16 06:08 INR 1.0 11/16/16 06:08 APTT 31 SECONDS (21-34) 11/16/16 06:08 - Constitutional Appears: Non-toxic, Chronically Ill - Head Exam Head Exam: NORMOCEPHALIC - Eye Exam Eye Exam: PERRL. absent: Scleral icterus - ENT Exam ENT Exam: Mucous Membranes Dry - Neck Exam Neck Exam: absent: Lymphadenopathy - Respiratory Exam Respiratory Exam: Decreased Breath Sounds, Rhonchi - Cardiovascular Exam Cardiovascular Exam: REGULAR RHYTHM - GI/Abdominal Exam GI & Abdominal Exam: Distended - Extremities Exam Additional comments: bilat bka Assessment and Plan (1) Acute respiratory failure Status: Acute (2) COPD (chronic obstructive pulmonary disease) Status: Chronic (3) ESRD (end stage renal disease) on dialysis Status: Chronic (4) Congestive heart failure Status: Chronic (5) Diabetes mellitus Status: Chronic (6) HTN (hypertension) Status: Chronic (7) S/P AKA (above knee amputation) bilateral Status: Acute (8) S/P AKA (above knee amputation) bilateral Status: Acute
--- NOTE | 2016-11-26 17:38 | CP.PCM.PN ---
Subjective - Date & Time of Evaluation Date of Evaluation: 11/26/16 Time of Evaluation: 15:25 - Subjective Subjective: patient seen and examined. Lying comfortably in no acute distress Denies fever chills, gonzales chest pain Objective - Vital Signs/Intake and Output Vital Signs (last 24 hours): Temp Pulse Resp BP Pulse Ox 98.5 F 79 20 142/62 99 11/26/16 15:37 11/26/16 15:37 11/26/16 15:37 11/26/16 15:37 11/26/16 15:37 Intake and Output: 11/26/16 11/26/16 06:59 18:59 Intake Total 310 Output Total 200 Balance 110 - Medications Medications: Current Medications Acetylcysteine (Acetylcysteine 20%) 4 ml INH RQ6 [facility] Last Admin: 11/26/16 15:47 Dose: Not Given Albuterol/Ipratropium (Duoneb 3 Mg/0.5 Mg (3 Ml) Ud) 3 ml INH RQ6 [facility] Last Admin: 11/26/16 15:47 Dose: Not Given Amlodipine Besylate (Norvasc) 5 mg PO DAILY [facility] Last Admin: 11/26/16 11:05 Dose: 5 mg Aspirin (Aspirin Chewable) 81 mg NG DAILY [facility] Last Admin: 11/26/16 11:03 Dose: 81 mg Benzonatate (Tessalon Perles) 100 mg PO TID PRN PRN Reason: Sore Throat Carvedilol (Coreg) 25 mg PO Q12 [facility] Last Admin: 11/26/16 11:05 Dose: 25 mg Dorzolamide HCl (Trusopt) 0 ml OU BID [facility] Last Admin: 11/26/16 11:06 Dose: 1 drop Famotidine (Pepcid) 20 mg IVP DAILY [facility] Last Admin: 11/26/16 11:04 Dose: 20 mg Gabapentin (Neurontin) 100 mg PO TID [facility] Last Admin: 11/26/16 14:34 Dose: 100 mg Hydralazine HCl (Apresoline) 10 mg IVP Q6H PRN PRN Reason: SBP above 180 mm Hg Last Admin: 11/26/16 14:43 Dose: 10 mg Hydrocortisone (Anusol-Hc) 0 gm [place] Q8H [facility] Last Admin: 11/26/16 11:04 Dose: 1 applic Tigecycline 50 mg/ Sodium (Chloride) 100 mls @ 100 mls/hr IVPB Q12H [facility] Last Admin: 11/26/16 11:04 Dose: 100 mls/hr Insulin Glargine (Lantus) 10 unit SC HS [facility] Last Admin: 11/25/16 22:59 Dose: 10 units Insulin Human Regular (Novolin R) 0 unit SC Q6H [facility] PRN Reason: Protocol Last Admin: 11/26/16 14:34 Dose: 1 unit Methylprednisolone (Solu-Medrol) 40 mg IVP Q12 [facility] Last Admin: 11/26/16 11:06 Dose: 40 mg Rosuvastatin Calcium (Crestor) 10 mg PO HS [facility] Last Admin: 11/25/16 22:59 Dose: 10 mg Saccharomyces Boulardii (Florastor) 250 mg PO BID [facility] Last Admin: 11/26/16 11:05 Dose: 250 mg - Labs Labs: 11/26/16 08:00 11/26/16 08:00 PT 11.5 SECONDS (9.7-12.2) 11/16/16 06:08 INR 1.0 11/16/16 06:08 APTT 31 SECONDS (21-34) 11/16/16 06:08 - Head Exam Head Exam: ATRAUMATIC, NORMOCEPHALIC - Eye Exam Eye Exam: Normal appearance - ENT Exam ENT Exam: Mucous Membranes Moist - Neck Exam Neck Exam: Normal Inspection - Respiratory Exam Respiratory Exam: Clear to Ausculation Bilateral - Cardiovascular Exam Cardiovascular Exam: REGULAR RHYTHM Assessment and Plan (1) Collapse of left lung Assessment & Plan: status post bronchoscopy with reexpansion of lung Followup chest x-ray and continue antibiotic nebulizer treatment and BiPAP as needed Status: Acute (2) Hypokalemia Status: Acute (3) COPD (chronic obstructive pulmonary disease) Status: Chronic (4) ESRD (end stage renal disease) on dialysis Status: Chronic
[2016-11-26] MEDS: (Lantus) Insulin Glargine, Recombinant SC SCH (21:47)
[2016-11-27] MEDS: (Novolin R) Insulin Human Regular 100 units/ml vial SC SCH ×4 (00:27→18:52)
[2016-11-27] MEDS: Acetylcysteine 20% Inhal Soln (4ml) INH SCH ×4 (01:09→19:21)
[2016-11-27] MEDS: Albuterol-Ipratrop 3 mg / 0.5 (3 ml) UD INH SCH ×4 (01:09→19:21)
[2016-11-27] MEDS: Hydrocortisone 2.5% Rectal Cream(30 gm) PR SCH ×4 (06:24→23:16)
[2016-11-27 08:17] LABS: BASO % 0.1 % (0.0-2.0); HEMOGLOBIN 12.2 g/dL (11.0-16.0); LYMPH # 0.4 K/uL (1.0-4.3); LYMPH % 3.4 % (20.0-40.0); MEAN CELL VOLUME 89.3 fL (81.0-99.0); MEAN CORPUSCULAR HEMOGLOBIN 27.8 pg (27.0-31.0); MEAN CORPUSCULAR HGB CONC 31.2 g/dL (33.0-37.0); MEAN PLATELET VOLUME 12.4 fL (7.2-11.7); MONO # 0.2 K/uL (0.0-0.8); MONO % 1.3 % (0.0-10.0); NEUT # 11.8 K/uL (1.8-7.0); NEUT % 95.2 % (50.0-75.0); RED CELL DISTRIBUTION WIDTH 18.2 % (11.5-14.5); WHITE BLOOD COUNT 12.4 K/uL (4.8-10.8)
[2016-11-27 08:23] LABS: PLATELET COUNT 122 K/uL (130-400)
[2016-11-27 08:30] LABS: ALB/GLOB RATIO 0.8 (1.0-2.1)
[2016-11-27 08:31] LABS: CALCIUM 7.1 mg/dl (8.6-10.4); MAGNESIUM 2.2 mg/dL (1.6-2.3)
[2016-11-27 08:59] LABS: LYMPHOCYTE 3 % (20-40); MONOCYTE 1 % (0-10); NEUTROPHIL 96 % (50-75); TOTAL CELLS COUNTED 100
[2016-11-27 09:00] LABS: ANISOCYTOSIS SLIGHT; PLATELET ESTIMATE SLIGHTLY DECREASED (NORMAL)
--- NOTE | 2016-11-27 10:08 | CP.PCM.PN ---
Subjective - Date & Time of Evaluation Date of Evaluation: 11/27/16 Time of Evaluation: 16:00 - Subjective Subjective: Patient seen and examined. Lying comfortably in the week of distress Denies any complaints Reexpansion of left lung Follow-up chest x-ray Continue nebulizer treatment Switch to by mouth prednisone Objective - Vital Signs/Intake and Output Vital Signs (last 24 hours): Temp Pulse Resp BP Pulse Ox 97.7 F 88 20 164/54 H 99 11/27/16 08:33 11/27/16 08:33 11/26/16 23:15 11/27/16 08:33 11/27/16 08:33 Intake and Output: 11/27/16 11/27/16 06:59 18:59 Intake Total 100 Output Total 450 Balance -350 - Medications Medications: Current Medications Acetylcysteine (Acetylcysteine 20%) 4 ml INH RQ6 [facility] Last Admin: 11/27/16 07:20 Dose: 4 ml Albuterol/Ipratropium (Duoneb 3 Mg/0.5 Mg (3 Ml) Ud) 3 ml INH RQ6 [facility] Last Admin: 11/27/16 07:20 Dose: 3 ml Amlodipine Besylate (Norvasc) 5 mg PO DAILY [facility] Last Admin: 11/26/16 11:05 Dose: 5 mg Aspirin (Aspirin Chewable) 81 mg NG DAILY [facility] Last Admin: 11/26/16 11:03 Dose: 81 mg Benzonatate (Tessalon Perles) 100 mg PO TID PRN PRN Reason: Sore Throat Carvedilol (Coreg) 25 mg PO Q12 [facility] Last Admin: 11/26/16 21:43 Dose: 25 mg Dorzolamide HCl (Trusopt) 0 ml OU BID [facility] Last Admin: 11/26/16 17:51 Dose: 1 drop Famotidine (Pepcid) 20 mg IVP DAILY [facility] Last Admin: 11/26/16 11:04 Dose: 20 mg Gabapentin (Neurontin) 100 mg PO TID [facility] Last Admin: 11/26/16 17:50 Dose: 100 mg Hydralazine HCl (Apresoline) 10 mg IVP Q6H PRN PRN Reason: SBP above 180 mm Hg Last Admin: 11/26/16 23:54 Dose: 10 mg Hydrocortisone (Anusol-Hc) 0 gm [place] Q8H [facility] Last Admin: 11/27/16 06:24 Dose: 1 applic Tigecycline 50 mg/ Sodium (Chloride) 100 mls @ 100 mls/hr IVPB Q12H [facility] Last Admin: 11/26/16 22:56 Dose: 100 mls/hr Insulin Glargine (Lantus) 10 unit SC HS [facility] Last Admin: 11/26/16 21:47 Dose: 10 units Insulin Human Regular (Novolin R) 0 unit SC Q6H [facility] PRN Reason: Protocol Last Admin: 11/27/16 06:25 Dose: 3 unit Methylprednisolone (Solu-Medrol) 40 mg IVP Q12 [facility] Last Admin: 11/26/16 21:43 Dose: 40 mg Rosuvastatin Calcium (Crestor) 10 mg PO HS [facility] Last Admin: 11/26/16 21:43 Dose: 10 mg Saccharomyces Boulardii (Florastor) 250 mg PO BID [facility] Last Admin: 11/26/16 17:51 Dose: 250 mg - Labs Labs: 11/27/16 08:04 11/27/16 08:04 PT 11.5 SECONDS (9.7-12.2) 11/16/16 06:08 INR 1.0 11/16/16 06:08 APTT 31 SECONDS (21-34) 11/16/16 06:08 Assessment and Plan (1) Collapse of left lung Status: Acute (2) Hypokalemia Status: Acute (3) COPD (chronic obstructive pulmonary disease) Status: Chronic (4) ESRD (end stage renal disease) on dialysis Status: Chronic
[2016-11-27] MEDS: MethylPREDNISolone 40 mg Vial IVP SCH ×2 (10:14→22:05)
[2016-11-27] MEDS: Saccharomyces Boulardi 250 mg Cap PO SCH ×2 (10:15→18:51)
--- NOTE | 2016-11-27 10:34 | CP.PCM.PN ---
Subjective - Date & Time of Evaluation Date of Evaluation: 11/27/16 Time of Evaluation: 10:31 - Subjective Subjective: pt seen and examined by me, c/o pain in back and in bot stumps and abdominal pain, no sob, Objective - Vital Signs/Intake and Output Vital Signs (last 24 hours): Temp Pulse Resp BP Pulse Ox 97.7 F 88 20 164/54 H 99 11/27/16 08:33 11/27/16 08:33 11/26/16 23:15 11/27/16 10:20 11/27/16 08:33 Intake and Output: 11/27/16 11/27/16 06:59 18:59 Intake Total 100 Output Total 450 Balance -350 - Medications Medications: Current Medications Acetylcysteine (Acetylcysteine 20%) 4 ml INH RQ6 [facility] Last Admin: 11/27/16 07:20 Dose: 4 ml Albuterol/Ipratropium (Duoneb 3 Mg/0.5 Mg (3 Ml) Ud) 3 ml INH RQ6 [facility] Last Admin: 11/27/16 07:20 Dose: 3 ml Amlodipine Besylate (Norvasc) 5 mg PO DAILY [facility] Last Admin: 11/27/16 10:22 Dose: 5 mg Aspirin (Aspirin Chewable) 81 mg NG DAILY [facility] Last Admin: 11/27/16 10:15 Dose: 81 mg Benzonatate (Tessalon Perles) 100 mg PO TID PRN PRN Reason: Sore Throat Carvedilol (Coreg) 25 mg PO Q12 [facility] Last Admin: 11/27/16 10:20 Dose: 25 mg Dorzolamide HCl (Trusopt) 0 ml OU BID [facility] Last Admin: 11/26/16 17:51 Dose: 1 drop Famotidine (Pepcid) 20 mg IVP DAILY [facility] Last Admin: 11/27/16 10:15 Dose: 20 mg Gabapentin (Neurontin) 100 mg PO TID [facility] Last Admin: 11/27/16 10:15 Dose: 100 mg Hydralazine HCl (Apresoline) 10 mg IVP Q6H PRN PRN Reason: SBP above 180 mm Hg Last Admin: 11/26/16 23:54 Dose: 10 mg Hydrocortisone (Anusol-Hc) 0 gm [place] Q8H [facility] Last Admin: 11/27/16 06:24 Dose: 1 applic Tigecycline 50 mg/ Sodium (Chloride) 100 mls @ 100 mls/hr IVPB Q12H [facility] Last Admin: 11/26/16 22:56 Dose: 100 mls/hr Insulin Glargine (Lantus) 10 unit SC [facility] Last Admin: 11/26/16 21:47 Dose: 10 units Insulin Human Regular (Novolin R) 0 unit SC Q6H [facility] PRN Reason: Protocol Last Admin: 11/27/16 06:25 Dose: 3 unit Methylprednisolone (Solu-Medrol) 40 mg IVP Q12 [facility] Last Admin: 11/27/16 10:14 Dose: 40 mg Rosuvastatin Calcium (Crestor) 10 mg PO HS [facility] Last Admin: 11/26/16 21:43 Dose: 10 mg Saccharomyces Boulardii (Florastor) 250 mg PO BID [facility] Last Admin: 11/27/16 10:15 Dose: 250 mg - Labs Labs: 11/27/16 08:04 11/27/16 08:04 PT 11.5 SECONDS (9.7-12.2) 11/16/16 06:08 INR 1.0 11/16/16 06:08 APTT 31 SECONDS (21-34) 11/16/16 06:08 - Constitutional Appears: Well, Non-toxic, No Acute Distress - Head Exam Head Exam: ATRAUMATIC, NORMAL INSPECTION, NORMOCEPHALIC - Eye Exam Eye Exam: EOMI, PERRL Pupil Exam: NORMAL ACCOMODATION, PERRL - ENT Exam ENT Exam: Mucous Membranes Moist - Neck Exam Neck Exam: Normal Inspection - Respiratory Exam Respiratory Exam: Clear to Ausculation Bilateral, NORMAL BREATHING PATTERN - Cardiovascular Exam Cardiovascular Exam: REGULAR RHYTHM, +S1, +S2 - GI/Abdominal Exam GI & Abdominal Exam: Soft, Normal Bowel Sounds Additional comments: diffuse mild tenderness, no guarding, no rigidity - Rectal Exam Rectal Exam: Deferred Additional comments: rectal tube+ - Extremities Exam Additional comments: b/l AKA - Neurological Exam Neurological Exam: Alert, Awake Additional comments: oriented x 2 - Skin Skin Exam: Normal Color, Warm Assessment and Plan - Assessment and Plan (Free Text) Plan: 61 yo Obese HF with pmh/o htn, dm, copd, chf, esrd, s/p resp.failure, s/p extubation, pneumonia 1. ESRD 2. HTN 3.COPD c/w hd 3 x aweek TTS uf a stolerated c/w iv abx a s per pulmonary and ID for MDRO in sputum K.pneumonia analgesics as needed
[2016-11-27] MEDS: Dorzolamide 2% Opht Sol 10ml OU SCH ×2 (12:29→18:51)
--- NOTE | 2016-11-27 18:01 | CP.PCM.PN ---
Subjective - Date & Time of Evaluation Date of Evaluation: 11/27/16 Time of Evaluation: 09:00 - Subjective Subjective: day 03/07 iv tygacil completed cxr to be repeated Objective - Vital Signs/Intake and Output Vital Signs (last 24 hours): Temp Pulse Resp BP Pulse Ox 97 F L 76 18 123/43 L 100 11/27/16 16:05 11/27/16 16:05 11/27/16 16:05 11/27/16 16:05 11/27/16 16:05 Intake and Output: 11/27/16 11/27/16 06:59 18:59 Intake Total 100 480 Output Total 450 500 Balance -350 -20 - Medications Medications: Current Medications Acetylcysteine (Acetylcysteine 20%) 4 ml INH RQ6 [facility] Last Admin: 11/27/16 13:37 Dose: Not Given Albuterol/Ipratropium (Duoneb 3 Mg/0.5 Mg (3 Ml) Ud) 3 ml INH RQ6 [facility] Last Admin: 11/27/16 13:37 Dose: Not Given Amlodipine Besylate (Norvasc) 5 mg PO DAILY [facility] Last Admin: 11/27/16 10:22 Dose: 5 mg Aspirin (Aspirin Chewable) 81 mg NG DAILY [facility] Last Admin: 11/27/16 10:15 Dose: 81 mg Benzonatate (Tessalon Perles) 100 mg PO TID PRN PRN Reason: Sore Throat Carvedilol (Coreg) 25 mg PO Q12 [facility] Last Admin: 11/27/16 10:20 Dose: 25 mg Dorzolamide HCl (Trusopt) 0 ml OU BID [facility] Last Admin: 11/27/16 12:29 Dose: 1 drop Famotidine (Pepcid) 20 mg IVP DAILY [facility] Last Admin: 11/27/16 10:15 Dose: 20 mg Gabapentin (Neurontin) 100 mg PO TID [facility] Last Admin: 11/27/16 15:14 Dose: Not Given Hydralazine HCl (Apresoline) 10 mg IVP Q6H PRN PRN Reason: SBP above 180 mm Hg Last Admin: 11/26/16 23:54 Dose: 10 mg Hydrocortisone (Anusol-Hc) [address] Q8H [facility] Last Admin: 11/27/16 15:39 Dose: Not Given Tigecycline 50 mg/ Sodium (Chloride) 100 mls @ 100 mls/hr IVPB Q12H [facility] Last Admin: 11/27/16 11:30 Dose: Not Given Insulin Glargine (Lantus) 10 unit SC HS [facility] Last Admin: 11/26/16 21:47 Dose: 10 units Insulin Human Regular (Novolin R) 0 unit SC Q6H [facility] PRN Reason: Protocol Last Admin: 11/27/16 12:34 Dose: 2 unit Methylprednisolone (Solu-Medrol) 40 mg IVP Q12 [facility] Last Admin: 11/27/16 10:14 Dose: 40 mg Rosuvastatin Calcium (Crestor) 10 mg PO HS [facility] Last Admin: 11/26/16 21:43 Dose: 10 mg Saccharomyces Boulardii (Florastor) 250 mg PO BID [facility] Last Admin: 11/27/16 10:15 Dose: 250 mg - Labs Labs: 11/27/16 08:04 11/27/16 08:04 PT 11.5 SECONDS (9.7-12.2) 11/16/16 06:08 INR 1.0 11/16/16 06:08 APTT 31 SECONDS (21-34) 11/16/16 06:08 Assessment and Plan (1) Acute respiratory failure Status: Acute (2) COPD (chronic obstructive pulmonary disease) Status: Chronic (3) ESRD (end stage renal disease) on dialysis Status: Chronic (4) Congestive heart failure Status: Chronic (5) Diabetes mellitus Status: Chronic (6) HTN (hypertension) Status: Chronic (7) S/P AKA (above knee amputation) bilateral Status: Acute (8) S/P AKA (above knee amputation) bilateral Status: Acute
--- NOTE | 2016-11-27 18:37 | RAD ---
HISTORY: r/o pneumonia COMPARISON: Chest x-ray performed 11/24/16 TECHNIQUE: Chest, one view. FINDINGS: Examination limited by habitus. Multiple external wires and leads obscure evaluation of the underlying parenchyma. Right-sided central venous catheter extending to the cavoatrial junction. Left-sided PICC with distal tip at the expected location of the cavoatrial junction. Nasogastric tube extends expected location of the stomach. LUNGS: Opacity at the left lung base may reflect atelectasis/ infiltrate and or small effusion. No definite pneumothorax. Please note that chest x-ray has limited sensitivity for the detection of pulmonary masses. CARDIOVASCULAR: Cardiomegaly. Atherosclerotic calcifications of the aorta. OSSEOUS STRUCTURES: No acute osseous abnormality identified. VISUALIZED UPPER ABDOMEN: Unremarkable. OTHER FINDINGS: None. IMPRESSION: Support lines and tubes as above. Cardiomegaly. Atherosclerotic calcifications of the aorta. Opacity at the left lung base may reflect atelectasis/ infiltrate and or small effusion.
--- NOTE | 2016-11-27 21:46 | CP.PCM.PN ---
Subjective - Date & Time of Evaluation Date of Evaluation: 11/27/16 Time of Evaluation: 21:44 - Subjective Subjective: Medicine Progress Note- Dr. Esqueda Service Patient was seen and examined at bedside in no acute distress. Patient was alert and talkative, but was not oriented to place or time. Patient reports having perianal pain that was progressing. She also reports having a mild headache. Patient denies having chest pain, palpitations, abdominal pain, nausea , vomiting, and dizziness. Objective - Vital Signs/Intake and Output Vital Signs (last 24 hours): Temp Pulse Resp BP Pulse Ox 97 F L 76 18 123/43 L 100 11/27/16 16:05 11/27/16 16:05 11/27/16 16:05 11/27/16 16:05 11/27/16 16:05 Intake and Output: 11/27/16 11/28/16 18:59 06:59 Intake Total 480 Output Total 500 Balance -20 - Medications Medications: Current Medications Acetylcysteine (Acetylcysteine 20%) 4 ml INH RQ6 [facility] Last Admin: 11/27/16 19:21 Dose: 4 ml Albuterol/Ipratropium (Duoneb 3 Mg/0.5 Mg (3 Ml) Ud) 3 ml INH RQ6 [facility] Last Admin: 11/27/16 19:21 Dose: 3 ml Amlodipine Besylate (Norvasc) 5 mg PO DAILY [facility] Last Admin: 11/27/16 10:22 Dose: 5 mg Aspirin (Aspirin Chewable) 81 mg NG DAILY [facility] Last Admin: 11/27/16 10:15 Dose: 81 mg Benzonatate (Tessalon Perles) 100 mg PO TID PRN PRN Reason: Sore Throat Carvedilol (Coreg) 25 mg PO Q12 [facility] Last Admin: 11/27/16 10:20 Dose: 25 mg Dorzolamide HCl (Trusopt) 0 ml OU BID [facility] Last Admin: 11/27/16 12:29 Dose: 1 drop Famotidine (Pepcid) 20 mg IVP DAILY [facility] Last Admin: 11/27/16 10:15 Dose: 20 mg Gabapentin (Neurontin) 100 mg PO TID [facility] Last Admin: 11/27/16 18:51 Dose: 100 mg Hydralazine HCl (Apresoline) 10 mg IVP Q6H PRN PRN Reason: SBP above 180 mm Hg Last Admin: 11/26/16 23:54 Dose: 10 mg Hydrocortisone (Anusol-Hc) 0 gm [place] Q8H [facility] Last Admin: 11/27/16 15:39 Dose: Not Given Tigecycline 50 mg/ Sodium (Chloride) 100 mls @ 100 mls/hr IVPB Q12H [facility] Last Admin: 11/27/16 11:30 Dose: Not Given Insulin Glargine (Lantus) 10 unit SC [facility] Last Admin: 11/26/16 21:47 Dose: 10 units Insulin Human Regular (Novolin R) 0 unit SC Q6H [facility] PRN Reason: Protocol Last Admin: 11/27/16 18:52 Dose: 2 unit Methylprednisolone (Solu-Medrol) 40 mg IVP Q12 [facility] Last Admin: 11/27/16 10:14 Dose: 40 mg Rosuvastatin Calcium (Crestor) 10 mg PO [facility] Last Admin: 11/26/16 21:43 Dose: 10 mg Saccharomyces Boulardii (Florastor) 250 mg PO BID [facility] Last Admin: 11/27/16 10:15 Dose: 250 mg - Labs Labs: 11/27/16 08:04 11/27/16 08:04 PT 11.5 SECONDS (9.7-12.2) 11/16/16 06:08 INR 1.0 11/16/16 06:08 APTT 31 SECONDS (21-34) 11/16/16 06:08 - Constitutional Appears: No Acute Distress - Head Exam Head Exam: NORMAL INSPECTION, NORMOCEPHALIC - Eye Exam Eye Exam: EOMI, Normal appearance - ENT Exam ENT Exam: Mucous Membranes Moist - Neck Exam Neck Exam: Normal Inspection - Respiratory Exam Respiratory Exam: Rhonchi, Wheezes. absent: Clear to Ausculation Bilateral - Cardiovascular Exam Cardiovascular Exam: REGULAR RHYTHM, +S1, +S2 - GI/Abdominal Exam GI & Abdominal Exam: Soft, Normal Bowel Sounds. absent: Tenderness - Extremities Exam Extremities Exam: absent: Normal Inspection Additional comments: b/l aka - Neurological Exam Neurological Exam: Alert, Awake. absent: Oriented x3 - Psychiatric Exam Psychiatric exam: Normal Affect, Normal Mood - Skin Skin Exam: Dry, Normal Color, Warm Additional comments: Sacral ulcer forming-stage 1 Assessment and Plan (1) Acute respiratory failure Assessment & Plan: Intubated in the ED on admission PH: 7.04, CO2: 124 on admission History of COPD Pulmonary consult (Dr. Quach)--->help appreciated Duonebs 3ml INH RQ8 HR Solumedrol 40mg IVP Q 12 hours Extubation 11/18 Chest xray (11/15/16): possible small left pleural effusion. Line and tubes are unchanged Chest Xray 11/16/16): No active disease Chest xray (11/19/16): moderate bilateral pleural effusionsm larger on left; bibasilare atelectasis/pneumonia cannot be excluded. Chest Xray (11/21/16): Interval near complete opacification of the left opal thorax. Suggestive for lung collapse and or pleural effusion. - Bronchoscope performed (Dr. Quach) 11/21/16): Thick secretions were aspirated and mucomyst 2cc was infused. Chest xray (11/22/16): severe cardiomegaly, pulmonary venous congestion and small left pleural effusion. Chest xray (11/24/16): possible small left pleural effusion. no infiltrate Chest xray (11/27/16): cardiomegaly; atherosclerotic calcifications of the aorta; opacity at the left lung base may reflect atelectasis/infiltrate and/or small effusion. Sputum culture (11/18/16): gram negative ariadne Sputum culture (11/16/16): Klebsiella pneumoniae, multidrug resistant Infectious disease (Dr. Anne) on board-->help appreciated Tigeyclcine 50mg IV 12 hours- day 2 (Active since 11/19/16); changed from Maxipime 1 gram IV Q 24hours Monitor WBCs (13.9 on 11/20/16) 7.9 on 11/24/16 Aspiration precaution initiated Head of bed 30 degree ordered Swallow eval- failed; patient is to remain on NPO diet (11/26/16) F/U swallow eval to see if patient needs still needs NGT tube ABG (11/26/16): pCO2 46 pO2 144 HCO3 26.7 pH 7.39 Total CO2 O2 sat 99.3 Base excess 2.3 Hgb 11.4 CarboxyHgb 1.6 Status: Acute (2) COPD (chronic obstructive pulmonary disease) Assessment & Plan: Pulmonary Consult (Dr. Quach)-->on board help appreciated-->taper steroids Solumdedrol 40mg IV Q 12hours Duonebs 3ml INH RQ8HR Chest xray (11/22/16): severe cardiomegaly, pulmonary venous congestion and small left pleural effusion. Chest xray (11/24/16): possible small left pleural effusion. no infiltrate Chest xray (11/27/16): cardiomegaly; atherosclerotic calcifications of the aorta; opacity at the left lung base may reflect atelectasis/infiltrate and/or small effusion. Status: Chronic (3) Hyperlipidemia Assessment & Plan: Lipid panel: TG mildly elevated Crestor 10mg POqHS Status: Chronic (4) Congestive heart failure Assessment & Plan: Echocardiogram (10/02/16): left ventricle systolic function is normal, EF: 65-70% , no aortic regurgitation is present, mitral regurgitation is mild, mild trciuspid regurgitation, mild pulmonary hypertension, mild pulmonic valvular regurgitation Chest xray (11/27/16): cardiomegaly; atherosclerotic calcifications of the aorta; opacity at the left lung base may reflect atelectasis/infiltrate and/or small effusion. 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 Saeed, help appreciated Patient recently started on dialysis about 2 weeks ago at [place] per review of EMR Dialysis: T/[facility]/Sat Received dialysis on 11/27/16 Status: Chronic (7) Diabetes mellitus Assessment & Plan: Accuchecks Q6H Insulin sliding scale subq6H Hgba1c: 5.0 controlled Lantus 10 units subqHS Neurotonin 100mg PO tid Status: Chronic (8) HTN (hypertension) Assessment & Plan: Monitor blood pressure Coreg 25mg PO Q12 Norvasc 5mg PO daily Status: Chronic (9) Diarrhea Assessment & Plan: Pepcid 20mg IVq daily Blood cultures (11/14/16): no growth X 4 days X2 Urine culture (11/14/16): no growth MRSA (11/15/16): MRSA not detected Blood culture (11/16/16): no growth after 48 hours 11/16/16: No salmonella, shigella, or campylobacter Urine culture: no growth Florastor 250mg PO bid C dif: negative on 11/16, 11/20, 11/21, 11/22 Anusol increased to TID 11/25/16 Status: Acute (10) Malnutrition Assessment & Plan: Low albumin at 2.1 (11/24/16) Sanitation Director consulted Tube feeding rate @25ml/hr as of 11/25/16 Goal as per dampener operator is 35ml/hr Status: Acute (11) Leukocytosis Assessment & Plan: Sputum culture (11/18/16): Klebsiella pneumoniae-->on Tigecycline Sputum culture (11/16/16): Klebsiella pneumoniae Infectious disease (Dr. Anne) on board-->help appreciated Tigeyclcine 50mg IV 12 hours (Active since 11/19/16); changed from Maxipime 1 gram IV Q 24hours Has PICC line Contact precautions May need repeat cultures if continues to uptrend Chest xray (11/22/16): severe cardiomegaly, pulmonary venous congestion and small left pleural effusion. Chest xray (11/24/16): possible small left pleural effusion. no infiltrate Blood cultures (11/14/16): no growth X 5days Urine culture (11/14/16): no growth MRSA (11/15/16): MRSA not detected Blood culture (11/16/16): no growth after 3 days 11/16/16: No salmonella, shigella, or campylobacter Urine culture: no growth Florastor 250mg PO bid C dif: negative Has bahena, PICC line, and rectocel Patients WBC on 11/26/16: 15; 11/27/16 12.4 UA: f/u Urine cx: gram negative ariadne Blood cx: f/u Status: Acute (12) Ulcer of sacral region, stage 1 Assessment & Plan: Stage 1 sacral ulcer Wound care consult Monitor Turn Q 2hr Status: Acute (13) Prophylactic measure Assessment & Plan: Pepcid 20mg IV q daily Florastor 250mg PO bid Turn Q2 hours Wound care Palliative care consult Swallow eval Status: Acute
[2016-11-27] MEDS: (Lantus) Insulin Glargine, Recombinant SC SCH (22:04)
[2016-11-28] MEDS: (Novolin R) Insulin Human Regular 100 units/ml vial SC SCH ×4 (00:05→19:28)
[2016-11-28] MEDS: Acetylcysteine 20% Inhal Soln (4ml) INH SCH ×4 (01:34→19:35)
[2016-11-28] MEDS: Albuterol-Ipratrop 3 mg / 0.5 (3 ml) UD INH SCH ×4 (01:35→19:35)
[2016-11-28] MEDS: Hydrocortisone 2.5% Rectal Cream(30 gm) PR SCH ×3 (07:30→17:18)
[2016-11-28 07:57] LABS: BASO # 0.1 K/uL (0.0-0.2); BASO % 0.3 % (0.0-2.0); HEMOGLOBIN 12.4 g/dL (11.0-16.0); LYMPH # 0.5 K/uL (1.0-4.3); LYMPH % 2.5 % (20.0-40.0); MEAN CELL VOLUME 89.1 fL (81.0-99.0); MEAN CORPUSCULAR HEMOGLOBIN 27.9 pg (27.0-31.0); MEAN CORPUSCULAR HGB CONC 31.3 g/dL (33.0-37.0); MEAN PLATELET VOLUME 11.7 fL (7.2-11.7); MONO # 0.3 K/uL (0.0-0.8); MONO % 1.9 % (0.0-10.0); NEUT # 17.2 K/uL (1.8-7.0); NEUT % 95.3 % (50.0-75.0); PLATELET COUNT 105 K/uL (130-400); RBC 4.42 Mil/uL (3.80-5.20); RED CELL DISTRIBUTION WIDTH 18.5 % (11.5-14.5)
[2016-11-28 08:12] LABS: CALCIUM 6.9 mg/dl (8.6-10.4); MAGNESIUM 1.8 mg/dL (1.6-2.3)
[2016-11-28 08:19] LABS: ALB/GLOB RATIO 0.8 (1.0-2.1)
[2016-11-28 09:13] LABS: LYMPHOCYTE 2 % (20-40); MONOCYTE 1 % (0-10); NEUTROPHIL 97 % (50-75); TOTAL CELLS COUNTED 100
[2016-11-28 09:14] LABS: ANISOCYTOSIS SLIGHT; PLATELET ESTIMATE SLIGHTLY DECREASED (NORMAL)
--- NOTE | 2016-11-28 10:19 | CP.PCM.PN ---
Subjective - Date & Time of Evaluation Date of Evaluation: 11/28/16 Time of Evaluation: 10:17 - Subjective Subjective: pt is seen and examined by me, no sob, no abdominal pain, no cp s/p hd yesterday, no complications, uf about 2 lit Objective - Vital Signs/Intake and Output Vital Signs (last 24 hours): Temp Pulse Resp BP Pulse Ox 98.9 F 86 20 172/73 H 100 11/28/16 07:02 11/28/16 07:02 11/28/16 07:02 11/28/16 07:02 11/28/16 07:02 Intake and Output: 11/28/16 11/28/16 06:59 18:59 Intake Total 320 Output Total 300 Balance 20 - Medications Medications: Current Medications Acetylcysteine (Acetylcysteine 20%) 4 ml INH RQ6 [facility] Last Admin: 11/28/16 07:21 Dose: 4 ml Albuterol/Ipratropium (Duoneb 3 Mg/0.5 Mg (3 Ml) Ud) 3 ml INH RQ6 [facility] Last Admin: 11/28/16 07:21 Dose: 3 ml Amlodipine Besylate (Norvasc) 5 mg PO DAILY [facility] Last Admin: 11/27/16 10:22 Dose: 5 mg Aspirin (Aspirin Chewable) 81 mg NG DAILY [facility] Last Admin: 11/27/16 10:15 Dose: 81 mg Benzonatate (Tessalon Perles) 100 mg PO TID PRN PRN Reason: Sore Throat Carvedilol (Coreg) 25 mg PO Q12 [facility] Last Admin: 11/27/16 22:04 Dose: 25 mg Dorzolamide HCl (Trusopt) 0 ml OU BID [facility] Last Admin: 11/27/16 18:51 Dose: 1 drop Famotidine (Pepcid) 20 mg IVP DAILY [facility] Last Admin: 11/27/16 10:15 Dose: 20 mg Gabapentin (Neurontin) 100 mg PO TID [facility] Last Admin: 11/27/16 18:51 Dose: 100 mg Hydralazine HCl (Apresoline) 10 mg IVP Q6H PRN PRN Reason: SBP above 180 mm Hg Last Admin: 11/26/16 23:54 Dose: 10 mg Hydrocortisone (Anusol-Hc) 0 gm [place] Q8H [facility] Last Admin: 07/06/17 23:16 Dose: 1 applic Tigecycline 50 mg/ Sodium (Chloride) 100 mls @ 100 mls/hr IVPB Q12H [facility] Last Admin: 11/27/16 23:57 Dose: 100 mls/hr Insulin Glargine (Lantus) 10 unit SC HS [facility] Last Admin: 11/27/16 22:04 Dose: 10 units Insulin Human Regular (Novolin R) 0 unit SC Q6H [facility] PRN Reason: Protocol Last Admin: 11/28/16 06:42 Dose: 2 unit Methylprednisolone (Solu-Medrol) 40 mg IVP Q12 [facility] Last Admin: 11/27/16 22:05 Dose: 40 mg Rosuvastatin Calcium (Crestor) 10 mg PO HS [facility] Last Admin: 11/27/16 22:04 Dose: 10 mg Saccharomyces Boulardii (Florastor) 250 mg PO BID [facility] Last Admin: 11/27/16 18:51 Dose: 250 mg - Labs Labs: 11/28/16 07:39 11/28/16 07:39 PT 11.5 SECONDS (9.7-12.2) 11/16/16 06:08 INR 1.0 11/16/16 06:08 APTT 31 SECONDS (21-34) 11/16/16 06:08 - Constitutional Appears: Well, Non-toxic, No Acute Distress - Head Exam Head Exam: ATRAUMATIC, NORMAL INSPECTION, NORMOCEPHALIC - Eye Exam Eye Exam: EOMI, Normal appearance Pupil Exam: NORMAL ACCOMODATION, PERRL - ENT Exam ENT Exam: Mucous Membranes Moist - Neck Exam Neck Exam: Full ROM, Normal Inspection - Respiratory Exam Respiratory Exam: Clear to Ausculation Bilateral, NORMAL BREATHING PATTERN - Cardiovascular Exam Cardiovascular Exam: REGULAR RHYTHM, +S1, +S2 - GI/Abdominal Exam GI & Abdominal Exam: Soft, Normal Bowel Sounds Additional comments: non tender, no guarding, no rigidity - Rectal Exam Rectal Exam: Deferred - Extremities Exam Additional comments: b/l AKA - Back Exam Additional comments: deferred - Neurological Exam Neurological Exam: Alert, Awake Additional comments: oriented x 2-3 - Skin Skin Exam: Normal Color, Warm Assessment and Plan - Assessment and Plan (Free Text) Plan: 61 yo obese HF with pmh/o htn,dm esrd, cad, chf, copd s/p resp. failure s/p extubation, pneumonia, sputum c/s + for MDSO, k.pneumonia 1. ESRD, c/w hd 3 x aweek TTS 2. HTN, bp is stable, c/w current meds, hydralazine, corg 3. COPD, c/w steroids, try to taper off if possible 4. pneumonia, c/w iv abx a sper ID/pulmonary, tygacil
[2016-11-28] MEDS: MethylPREDNISolone 40 mg Vial IVP SCH ×2 (11:09→22:52)
[2016-11-28] MEDS: Saccharomyces Boulardi 250 mg Cap PO SCH ×2 (11:31→18:31)
[2016-11-28] MEDS: Dorzolamide 2% Opht Sol 10ml OU SCH ×2 (11:31→18:30)
--- NOTE | 2016-11-28 15:35 | CP.PCM.PN ---
Subjective - Date & Time of Evaluation Date of Evaluation: 11/28/16 Time of Evaluation: 08:00 - Subjective Subjective: c/o bladder discomfort recent urine c/s shows mdro klEBS AMIKACIN ADDED MAY NEED EVAL Objective - Vital Signs/Intake and Output Vital Signs (last 24 hours): Temp Pulse Resp BP Pulse Ox 98.9 F 86 20 172/85 H 100 11/28/16 07:02 11/28/16 07:02 11/28/16 07:02 11/28/16 11:09 11/28/16 07:02 Intake and Output: 11/28/16 11/28/16 06:59 18:59 Intake Total 320 Output Total 300 Balance 20 - Medications Medications: Current Medications Acetylcysteine (Acetylcysteine 20%) 4 ml INH RQ6 [facility] Last Admin: 11/28/16 13:40 Dose: 4 ml Albuterol/Ipratropium (Duoneb 3 Mg/0.5 Mg (3 Ml) Ud) 3 ml INH RQ6 [facility] Last Admin: 11/28/16 13:40 Dose: 3 ml Amlodipine Besylate (Norvasc) 5 mg PO DAILY [facility] Last Admin: 11/28/16 11:10 Dose: 5 mg Aspirin (Aspirin Chewable) 81 mg NG DAILY [facility] Last Admin: 11/28/16 11:10 Dose: 81 mg Benzonatate (Tessalon Perles) 100 mg PO TID PRN PRN Reason: Sore Throat Carvedilol (Coreg) 25 mg PO Q12 [facility] Last Admin: 11/28/16 11:09 Dose: 25 mg Dorzolamide HCl (Trusopt) 0 ml OU BID [facility] Last Admin: 11/28/16 11:31 Dose: 1 drop Famotidine (Pepcid) 20 mg IVP DAILY [facility] Last Admin: 11/28/16 11:09 Dose: 20 mg Gabapentin (Neurontin) 100 mg PO TID [facility] Last Admin: 11/28/16 11:10 Dose: 100 mg Hydralazine HCl (Apresoline) 10 mg IVP Q6H PRN PRN Reason: SBP above 180 mm Hg Last Admin: 11/26/16 23:54 Dose: 10 mg Hydrocortisone (Anusol-Hc) 0 gm [place] Q8H [facility] Last Admin: 11/28/16 07:30 Dose: 1 applic Tigecycline 50 mg/ Sodium (Chloride) 100 mls @ 100 mls/hr IVPB Q12H [facility] Last Admin: 11/28/16 11:40 Dose: 100 mls/hr Insulin Glargine (Lantus) 10 unit SC HS [facility] Last Admin: 11/27/16 22:04 Dose: 10 units Insulin Human Regular (Novolin R) 0 unit SC Q6H [facility] PRN Reason: Protocol Last Admin: 11/28/16 06:42 Dose: 2 unit Methylprednisolone (Solu-Medrol) 40 mg IVP Q12 [facility] Last Admin: 11/28/16 11:09 Dose: 40 mg Rosuvastatin Calcium (Crestor) 10 mg PO HS [facility] Last Admin: 11/27/16 22:04 Dose: 10 mg Saccharomyces Boulardii (Florastor) 250 mg PO BID [facility] Last Admin: 11/28/16 11:31 Dose: 250 mg - Labs Labs: 11/28/16 07:39 11/28/16 07:39 PT 11.5 SECONDS (9.7-12.2) 11/16/16 06:08 INR 1.0 11/16/16 06:08 APTT 31 SECONDS (21-34) 11/16/16 06:08 - Constitutional Appears: Non-toxic, Chronically Ill - Head Exam Head Exam: NORMOCEPHALIC - Eye Exam Eye Exam: PERRL. absent: Scleral icterus - ENT Exam ENT Exam: Mucous Membranes Dry - Neck Exam Neck Exam: absent: Lymphadenopathy - Respiratory Exam Respiratory Exam: Decreased Breath Sounds, Clear to Ausculation Bilateral - Cardiovascular Exam Cardiovascular Exam: REGULAR RHYTHM, +S1, +S2 - GI/Abdominal Exam GI & Abdominal Exam: Distended, Soft - Rectal Exam Rectal Exam: Deferred - Exam Exam: NORMAL INSPECTION - Extremities Exam Extremities Exam: absent: Calf Tenderness Additional comments: BILAT AKA Assessment and Plan (1) Acute respiratory failure Status: Acute (2) COPD (chronic obstructive pulmonary disease) Status: Chronic (3) ESRD (end stage renal disease) on dialysis Status: Chronic (4) Congestive heart failure Status: Chronic (5) Diabetes mellitus Status: Chronic (6) HTN (hypertension) Status: Chronic (7) S/P AKA (above knee amputation) bilateral Status: Acute (8) S/P AKA (above knee amputation) bilateral Status: Acute
--- NOTE | 2016-11-28 16:16 | CP.PCM.PN ---
<Analia Diggs - Last Filed: 11/28/16 16:19> Subjective - Date & Time of Evaluation Date of Evaluation: 11/28/16 Time of Evaluation: 16:13 - Subjective Subjective: Hospitalists progress note by PGY2 Patient is seen and examined at bedside. No acute events overnight. Patient is alert and awake but only oriented to person. Patient is complaining of abdominal pain this morning. She denies having any N/V/D/c. Patient denies having any CP or SOB. 12 point ROS are negative except for the above mentioned. Objective - Vital Signs/Intake and Output Vital Signs (last 24 hours): Temp Pulse Resp BP Pulse Ox 98.9 F 86 20 172/85 H 100 11/28/16 07:02 11/28/16 07:02 11/28/16 07:02 11/28/16 11:09 11/28/16 07:02 Intake and Output: 11/28/16 11/28/16 06:59 18:59 Intake Total 420 Output Total 450 Balance -30 - Medications Medications: Current Medications Acetylcysteine (Acetylcysteine 20%) 4 ml INH RQ6 [facility] Last Admin: 11/28/16 13:40 Dose: 4 ml Albuterol/Ipratropium (Duoneb 3 Mg/0.5 Mg (3 Ml) Ud) 3 ml INH RQ6 [facility] Last Admin: 11/28/16 13:40 Dose: 3 ml Amlodipine Besylate (Norvasc) 5 mg PO DAILY [facility] Last Admin: 11/28/16 11:10 Dose: 5 mg Aspirin (Aspirin Chewable) 81 mg NG DAILY [facility] Last Admin: 11/28/16 11:10 Dose: 81 mg Benzonatate (Tessalon Perles) 100 mg PO TID PRN PRN Reason: Sore Throat Carvedilol (Coreg) 25 mg PO Q12 [facility] Last Admin: 11/28/16 11:09 Dose: 25 mg Dorzolamide HCl (Trusopt) 0 ml OU BID [facility] Last Admin: 11/28/16 11:31 Dose: 1 drop Famotidine (Pepcid) 20 mg IVP DAILY [facility] Last Admin: 11/28/16 11:09 Dose: 20 mg Gabapentin (Neurontin) 100 mg PO TID [facility] Last Admin: 11/28/16 11:10 Dose: 100 mg Hydralazine HCl (Apresoline) 10 mg IVP Q6H PRN PRN Reason: SBP above 180 mm Hg Last Admin: 11/26/16 23:54 Dose: 10 mg Hydrocortisone (Anusol-Hc) 0 gm NJ Q8H [facility] Last Admin: 11/28/16 07:30 Dose: 1 applic Tigecycline 50 mg/ Sodium (Chloride) 100 mls @ 100 mls/hr IVPB Q12H [facility] Last Admin: 11/28/16 11:40 Dose: 100 mls/hr Amikacin Sulfate 500 mg/ (Sodium Chloride) 102 mls @ 204 mls/hr IVPB MWF [facility] Insulin Glargine (Lantus) 10 unit SC HS [facility] Last Admin: 11/27/16 22:04 Dose: 10 units Insulin Human Regular (Novolin R) 0 unit SC Q6H [facility] PRN Reason: Protocol Last Admin: 11/28/16 06:42 Dose: 2 unit Methylprednisolone (Solu-Medrol) 40 mg IVP Q12 [facility] Last Admin: 11/28/16 11:09 Dose: 40 mg Rosuvastatin Calcium (Crestor) 10 mg PO HS [facility] Last Admin: 11/27/16 22:04 Dose: 10 mg Saccharomyces Boulardii (Florastor) 250 mg PO BID [facility] Last Admin: 11/28/16 11:31 Dose: 250 mg - Labs Labs: 11/28/16 07:39 11/28/16 07:39 PT 11.5 SECONDS (9.7-12.2) 11/16/16 06:08 INR 1.0 11/16/16 06:08 APTT 31 SECONDS (21-34) 11/16/16 06:08 - Constitutional Appears: Non-toxic - Head Exam Head Exam: ATRAUMATIC - Eye Exam Eye Exam: EOMI - ENT Exam ENT Exam: Mucous Membranes Moist - Respiratory Exam Respiratory Exam: Clear to Ausculation Bilateral. absent: Rales, Rhonchi, Wheezes - Cardiovascular Exam Cardiovascular Exam: REGULAR RHYTHM, +S1, +S2. absent: Gallop, Rubs, Murmur - GI/Abdominal Exam GI & Abdominal Exam: Distended, Guarding, Soft, Tenderness, Normal Bowel Sounds. absent: Firm, Rigid - Extremities Exam Extremities Exam: Pedal Edema - Neurological Exam Neurological Exam: Alert, Awake. absent: Oriented x3 - Skin Skin Exam: Dry, Intact Assessment and Plan - Assessment and Plan (Free Text) Assessment: (1) Acute respiratory failure Patient was intubated on admission s/p extubation on 11/18. History of COPD Pulmonary consult (Dr. Quach)--->help appreciated Duonebs 3ml INH RQ8 HR Solumedrol 40mg IVP Q 12 hours Chest xray (11/15/16): possible small left pleural effusion. Line and tubes are unchanged Chest Xray 11/16/16): No active disease Chest xray (11/19/16): moderate bilateral pleural effusionsm larger on left; bibasilare atelectasis/pneumonia cannot be excluded. Chest Xray (11/21/16): Interval near complete opacification of the left opal thorax. Suggestive for lung collapse and or pleural effusion. - Bronchoscope performed (Dr. Quach) 11/21/16): Thick secretions were aspirated and mucomyst 2cc was infused. Chest xray (11/22/16): severe cardiomegaly, pulmonary venous congestion and small left pleural effusion. Chest xray (11/24/16): possible small left pleural effusion. no infiltrate Chest xray (11/27/16): cardiomegaly; atherosclerotic calcifications of the aorta; opacity at the left lung base may reflect atelectasis/infiltrate and/or small effusion. Sputum culture (11/18/16): gram negative ariadne Sputum culture (11/16/16): Klebsiella pneumoniae, multidrug resistant Infectious disease (Dr. Anne) on board-->help appreciated Tigeyclcine 50mg IV 12 hours- day 2 (Active since 11/19/16); changed from Maxipime 1 gram IV Q 24hours Monitor WBCs (13.9 on 11/20/16) 7.9 on 11/24/16 Aspiration precaution initiated Head of bed 30 degree ordered Swallow eval- failed; patient is to remain on NPO diet (11/26/16). Patient refused to be repositioned for reeval today. continue NGT ABG (11/26/16): pCO2 46 pO2 144 HCO3 26.7 pH 7.39 Total CO2 O2 sat 99.3 Base excess 2.3 Hgb 11.4 CarboxyHgb 1.6 (2) COPD (chronic obstructive pulmonary disease) Assessment & Plan: Pulmonary Consult (Dr. Quach)-->on board help appreciated-->taper steroids Solumdedrol 40mg IV Q 12hours Duonebs 3ml INH RQ8HR Chest xray (11/22/16): severe cardiomegaly, pulmonary venous congestion and small left pleural effusion. Chest xray (11/24/16): possible small left pleural effusion. no infiltrate Chest xray (11/27/16): cardiomegaly; atherosclerotic calcifications of the aorta; opacity at the left lung base may reflect atelectasis/infiltrate and/or small effusion. (3) Hyperlipidemia Assessment & Plan: Lipid panel: TG mildly elevated Crestor 10mg POqHS (4) Congestive heart failure Assessment & Plan: Echocardiogram (10/02/16): left ventricle systolic function is normal, EF: 65-70% , no aortic regurgitation is present, mitral regurgitation is mild, mild trciuspid regurgitation, mild pulmonary hypertension, mild pulmonic valvular regurgitation Chest xray (11/27/16): cardiomegaly; atherosclerotic calcifications of the aorta; opacity at the left lung base may reflect atelectasis/infiltrate and/or small effusion. 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 Saeed, help appreciated Patient recently started on dialysis about 2 weeks ago at [place] per review of EMR Dialysis: T/[facility]/Sat Received dialysis on 11/27/16 (7) Diabetes mellitus Assessment & Plan: Accuchecks Q6H Insulin sliding scale subq6H Hgba1c: 5.0 controlled Lantus 10 units subqHS Neurotonin 100mg PO tid (8) HTN (hypertension) Assessment & Plan: Monitor blood pressure Coreg 25mg PO Q12 Norvasc 5mg PO daily (9) Diarrhea Assessment & Plan: Pepcid 20mg IVq daily Blood cultures (11/14/16): no growth X 4 days X2 Urine culture (11/14/16): no growth MRSA (11/15/16): MRSA not detected Blood culture (11/16/16): no growth after 48 hours 11/16/16: No salmonella, shigella, or campylobacter Urine culture: no growth Florastor 250mg PO bid C dif: negative on 11/16, 11/20, 11/21, 11/22 Anusol increased to TID 11/25/16 (10) Malnutrition Assessment & Plan: Low albumin at 2.1 (11/24/16) Wool Supplier consulted Tube feeding rate @25ml/hr as of 11/25/16 Goal as per vp digital marketing social media and crm is 35ml/hr Status: Acute (11) Leukocytosis Assessment & Plan: Trending up Sputum culture (11/18/16): Klebsiella pneumoniae-->on Tigecycline Sputum culture (11/16/16): Klebsiella pneumoniae Infectious disease (Dr. Anne) on board-->help appreciated Tigeyclcine 50mg IV 12 hours (Active since 11/19/16); changed from Maxipime 1 gram IV Q 24hours Has PICC line Contact precautions May need repeat cultures if continues to uptrend Chest xray (11/22/16): severe cardiomegaly, pulmonary venous congestion and small left pleural effusion. Chest xray (11/24/16): possible small left pleural effusion. no infiltrate Blood cultures (11/14/16): no growth X 5days Urine culture (11/14/16): no growth MRSA (11/15/16): MRSA not detected Blood culture (11/16/16): no growth after 3 days 11/16/16: No salmonella, shigella, or campylobacter Urine culture: no growth Florastor 250mg PO bid C dif: negative Has bahena, PICC line, and rectocel Urine cx 11/26: Klebsiella Pneumonia Blood cx: f/u (12) Ulcer of sacral region, stage 1 Assessment & Plan: Stage 1 sacral ulcer Wound care consult Monitor Turn Q 2hr started patient on vitamin c, zinc sulfate and multivitamin (13) Prophylactic measure Assessment & Plan: Pepcid 20mg IV q daily Florastor 250mg PO bid Turn Q2 hours Wound care Palliative care consult Swallow eval (14) Abdominal pain Bladder scan at bedside showed 40 cc of urine Will get kidney/bladder US Will get CT abd/pelvis with PO contrast to r/o colitis or other pathology. Spoke with steam and power superintendent, Dr. Saeed about risk of contrast induced nephropathy. He stated that PO contrast is ok and no extra session of dialysis necessary after contrast given. Case discussed with attending, Dr. Esqueda. <Ondina Esqueda V - Last Filed: 11/29/16 09:26> Objective - Vital Signs/Intake and Output Vital Signs (last 24 hours): Temp Pulse Resp BP Pulse Ox 97.6 F 70 20 120/74 96 11/29/16 01:00 11/29/16 01:00 11/29/16 01:00 11/29/16 01:00 11/29/16 01:00 Intake and Output: 11/29/16 11/29/16 06:59 18:59 Intake Total 600 Output Total 100 Balance 500 - Medications Medications: Current Medications Acetaminophen (Tylenol 650mg/20.3ml Solution Ud) 650 mg PO Q6 PRN PRN Reason: Pain, Mild (1-3) Last Admin: 11/28/16 18:30 Dose: 650 mg Acetylcysteine (Acetylcysteine 20%) 4 ml INH RQ6 [facility] Last Admin: 11/29/16 08:19 Dose: 4 ml Albuterol/Ipratropium (Duoneb 3 Mg/0.5 Mg (3 Ml) Ud) 3 ml INH RQ6 [facility] Last Admin: 11/29/16 08:19 Dose: 3 ml Amlodipine Besylate (Norvasc) 5 mg PO DAILY [facility] Last Admin: 11/28/16 11:10 Dose: 5 mg Ascorbic Acid (Vitamin C 250 Mg Tab) 250 mg PO DAILY [facility] Aspirin (Aspirin Chewable) 81 mg NG DAILY [facility] Last Admin: 11/28/16 11:10 Dose: 81 mg Benzonatate (Tessalon Perles) 100 mg PO TID PRN PRN Reason: Sore Throat Carvedilol (Coreg) 25 mg PO Q12 [facility] Last Admin: 11/28/16 22:52 Dose: 25 mg Dorzolamide HCl (Trusopt) 0 ml OU BID [facility] Last Admin: 11/28/16 18:30 Dose: 1 drop Famotidine (Pepcid) 20 mg IVP DAILY [facility] Last Admin: 11/28/16 11:09 Dose: 20 mg Gabapentin (Neurontin) 100 mg PO TID [facility] Last Admin: 11/28/16 18:30 Dose: 100 mg Hydralazine HCl (Apresoline) 10 mg IVP Q6H PRN PRN Reason: SBP above 180 mm Hg Last Admin: 11/26/16 23:54 Dose: 10 mg Hydrocortisone (Anusol-Hc) 0 gm NJ Q8H [facility] Last Admin: 11/28/16 17:18 Dose: Not Given Tigecycline 50 mg/ Sodium (Chloride) 100 mls @ 100 mls/hr IVPB Q12H [facility] Last Admin: 11/28/16 22:51 Dose: 100 mls/hr Amikacin Sulfate 500 mg/ (Sodium Chloride) 102 mls @ 204 mls/hr IVPB MWF [facility] Insulin Glargine (Lantus) 10 unit SC HS [facility] Last Admin: 11/29/16 00:03 Dose: Not Given Insulin Human Regular (Novolin R) 0 unit SC Q6H [facility] PRN Reason: Protocol Last Admin: 11/29/16 05:34 Dose: Not Given Methylprednisolone (Solu-Medrol) 40 mg IVP Q12 [facility] Last Admin: 11/28/16 22:52 Dose: 40 mg Multivitamins (Hexavitamin) 1 tab PO DAILY [facility] Rosuvastatin Calcium (Crestor) 10 mg PO HS [facility] Last Admin: 11/28/16 22:52 Dose: 10 mg Saccharomyces Boulardii (Florastor) 250 mg PO BID [facility] Last Admin: 11/28/16 18:31 Dose: 250 mg Zinc Sulfate (Zinc Sulfate 220 Mg Cap) 220 mg PO DAILY [facility] - Labs Labs: 11/28/16 07:39 11/28/16 07:39 PT 11.5 SECONDS (9.7-12.2) 11/16/16 06:08 INR 1.0 11/16/16 06:08 APTT 31 SECONDS (21-34) 11/16/16 06:08 Assessment and Plan (1) Acute respiratory failure Status: Acute (2) COPD (chronic obstructive pulmonary disease) Status: Chronic (3) Hyperlipidemia Status: Chronic (4) Congestive heart failure Status: Chronic (5) Diabetes mellitus Status: Chronic (6) ESRD (end stage renal disease) on dialysis Status: Chronic (7) HTN (hypertension) Status: Chronic (8) Hypokalemia Status: Acute (9) Prophylactic measure Status: Acute Attending/Attestation - Attestation I have personally seen and examined this patient.: Yes I have fully participated in the care of the patient.: Yes I have reviewed all pertinent clinical information, including history, physical exam and plan: Yes Notes (Text): This is late computer entry for 11/28/16. Patient seen, examined, and case discussed with day-time resident. Patient reports she is not feeling well and points to her belly. Patient is awake, alert, and appears oriented. Patient's white count is uptrending and platelets coming down. Patient's urine culture came back; multidrug resistant Klebsiella sensitive to Amikacin only ESBL+only. Infectious disease informed. Patient ordered for stool studies given patient has been on IV abx r/o C. dif. Patient ordered for CT Abdomen/Pelvis PO contrast; discussed with nephrology.
[2016-11-28] MEDS ORDERED: Acetaminophen 650mg/20.3ml solution UD PO PRN (17:18)
[2016-11-28] MEDS ORDERED: Iohexol 240 (50 ml) PO ONE ×2 (17:25→19:28)
--- NOTE | 2016-11-28 21:19 | US ---
EXAM: US Retroperitoneal Limited, Renal CLINICAL HISTORY: 61 years old, female; Signs and symptoms; Other: Retention; Additional info: Urinary retention TECHNIQUE: Real-time ultrasound of the retroperitoneum (limited) with image documentation. COMPARISON: No relevant prior studies available. FINDINGS: Limitations: Body habitus. Patient compliance as per technologist. Right kidney: Normal echogenicity. No calculi. No hydronephrosis. Left kidney: Suboptimal visualization. Normal echogenicity. No calculi. No hydronephrosis. IMPRESSION: 1.No acute findings. 2.Non-acute findings are described above.
--- NOTE | 2016-11-28 21:28 | CT ---
EXAM: CT Abdomen and Pelvis Without Intravenous Contrast CLINICAL HISTORY: 61 years old, female; Condition or disease; Intestinal condition; Other: Colitis; Additional info: Rule out colitis TECHNIQUE: Axial computed tomography images of the abdomen and pelvis without intravenous contrast. This CT exam was performed using one or more of the following dose reduction techniques: automated exposure control, adjustment of the mA and/or kV according to patient size, and/or use of iterative reconstruction technique. Coronal and sagittal reformatted images were created and reviewed. COMPARISON: No relevant prior studies available. FINDINGS: Limitations: Lack of intravenous contrast. Lower thorax: Moderate pericardial effusion. Coronary artery/valvular calcifications. Mild peripheral consolidation with associated volume loss within LEFT lower lobe. Dependent atelectasis. Small LEFT pleural effusion. ABDOMEN: Liver: Small hepatic calcification. Gallbladder and bile ducts: No calcified stones. No ductal dilation. Pancreas: Unremarkable. No ductal dilation. Spleen: No splenomegaly. Adrenals: No mass. Kidneys and ureters: No renal calculi. No hydronephrosis. Stomach and bowel: Fluid/air within small bowel. Fluid/loose stool/air within large bowel. No definite bowel wall thickening. No obstruction. Appendix: Normal caliber. No inflammation. PELVIS: Bladder: Allred catheter. Collapsed bladder, limiting evaluation. Small amount of air within lumen. No stones. Reproductive: Unremarkable as visualized. Subperitoneal space: Mild stranding in presacral space, nonspecific. ABDOMEN and PELVIS: Intraperitoneal space: No significant fluid collection. No free air. Bones/joints: Bone island. No acute fracture. Soft tissues: Small umbilical hernia containing fat. Few small soft tissue densities within anterior abdominal wall, nonspecific. Vasculature: Extensive atherosclerotic disease of visualized arteries. Lymph nodes: No pathologically enlarged lymph nodes. Tubes, lines and devices: Rectal tube. Nasogastric tube. IMPRESSION: 1. Fluid/loose stool within bowel may suggest diarrhea illness. 2. LEFT pleural effusion with atelectasis. Superimposed pneumonia not entirely excluded. 3. Moderate pericardial effusion. 4. Air within bladder lumen. DDX: Recent instrumentation or cystitis. 5. Incidental/non-acute findings are described above.
[2016-11-29] MEDS: (Lantus) Insulin Glargine, Recombinant SC SCH ×2 (00:03→22:00)
--- NOTE | 2016-11-29 00:31 | CP.PCM.PN ---
<Alejandra Buckley - Last Filed: 11/29/16 01:30> Subjective - Date & Time of Evaluation Date of Evaluation: 11/29/16 Time of Evaluation: 00:29 - Subjective Subjective: Medicine Progress Note- Dr. Blackwood Service Patient was seen and examined at bedside in no acute distress. Patient reports feeling okay today, but still has perianal pain. She reports having a mild headache. Patient is oriented to self, but not to place or time. Patient denies having chest pain, abdominal pain, nausea, vomiting, dizziness, and palpitations Objective - Vital Signs/Intake and Output Vital Signs (last 24 hours): Temp Pulse Resp BP Pulse Ox 98.4 F 69 20 144/62 98 11/28/16 15:00 11/28/16 16:00 11/28/16 15:00 11/28/16 22:52 11/28/16 15:00 Intake and Output: 11/28/16 11/29/16 18:59 06:59 Intake Total 420 600 Output Total 450 100 Balance -30 500 - Medications Medications: Current Medications Acetaminophen (Tylenol 650mg/20.3ml Solution Ud) 650 mg PO Q6 PRN PRN Reason: Pain, Mild (1-3) Last Admin: 11/28/16 18:30 Dose: 650 mg Acetylcysteine (Acetylcysteine 20%) 4 ml INH RQ6 [facility] Last Admin: 11/28/16 19:35 Dose: 4 ml Albuterol/Ipratropium (Duoneb 3 Mg/0.5 Mg (3 Ml) Ud) 3 ml INH RQ6 [facility] Last Admin: 11/28/16 19:35 Dose: 3 ml Amlodipine Besylate (Norvasc) 5 mg PO DAILY [facility] Last Admin: 11/28/16 11:10 Dose: 5 mg Ascorbic Acid (Vitamin C 250 Mg Tab) 250 mg PO DAILY [facility] Aspirin (Aspirin Chewable) 81 mg NG DAILY [facility] Last Admin: 11/28/16 11:10 Dose: 81 mg Benzonatate (Tessalon Perles) 100 mg PO TID PRN PRN Reason: Sore Throat Carvedilol (Coreg) 25 mg PO Q12 [facility] Last Admin: 11/28/16 22:52 Dose: 25 mg Dorzolamide HCl (Trusopt) 0 ml OU BID [facility] Last Admin: 11/28/16 18:30 Dose: 1 drop Famotidine (Pepcid) 20 mg IVP DAILY [facility] Last Admin: 11/28/16 11:09 Dose: 20 mg Gabapentin (Neurontin) 100 mg PO TID [facility] Last Admin: 11/28/16 18:30 Dose: 100 mg Hydralazine HCl (Apresoline) 10 mg IVP Q6H PRN PRN Reason: SBP above 180 mm Hg Last Admin: 11/26/16 23:54 Dose: 10 mg Hydrocortisone (Anusol-Hc) 0 gm DC Q8H [facility] Last Admin: 11/28/16 17:18 Dose: Not Given Tigecycline 50 mg/ Sodium (Chloride) 100 mls @ 100 mls/hr IVPB Q12H [facility] Last Admin: 11/28/16 22:51 Dose: 100 mls/hr Amikacin Sulfate 500 mg/ (Sodium Chloride) 102 mls @ 204 mls/hr IVPB MWF [facility] Insulin Glargine (Lantus) 10 unit SC [facility] Last Admin: 11/29/16 00:03 Dose: Not Given Insulin Human Regular (Novolin R) 0 unit SC Q6H [facility] PRN Reason: Protocol Last Admin: 11/28/16 19:28 Dose: 1 unit Methylprednisolone (Solu-Medrol) 40 mg IVP Q12 [facility] Last Admin: 11/28/16 22:52 Dose: 40 mg Multivitamins (Hexavitamin) 1 tab PO DAILY [facility] Rosuvastatin Calcium (Crestor) 10 mg PO HS [facility] Last Admin: 11/28/16 22:52 Dose: 10 mg Saccharomyces Boulardii (Florastor) 250 mg PO BID [facility] Last Admin: 11/28/16 18:31 Dose: 250 mg Zinc Sulfate (Zinc Sulfate 220 Mg Cap) 220 mg PO DAILY [facility] - Labs Labs: 11/28/16 07:39 11/28/16 07:39 PT 11.5 SECONDS (9.7-12.2) 11/16/16 06:08 INR 1.0 11/16/16 06:08 APTT 31 SECONDS (21-34) 11/16/16 06:08 - Constitutional Appears: No Acute Distress - Head Exam Head Exam: NORMAL INSPECTION, NORMOCEPHALIC - Eye Exam Eye Exam: EOMI, Normal appearance - ENT Exam ENT Exam: Mucous Membranes Moist - Neck Exam Neck Exam: Normal Inspection - Respiratory Exam Respiratory Exam: NORMAL BREATHING PATTERN - Cardiovascular Exam Cardiovascular Exam: REGULAR RHYTHM, +S1, +S2 - GI/Abdominal Exam GI & Abdominal Exam: Distended, Soft, Tenderness, Normal Bowel Sounds - Extremities Exam Extremities Exam: absent: Normal Inspection (b/l aka) - Neurological Exam Neurological Exam: Alert, Awake. absent: Oriented x3 - Psychiatric Exam Psychiatric exam: Normal Mood - Skin Skin Exam: Dry, Intact, Normal Color, Warm Assessment and Plan (1) Acute respiratory failure Assessment & Plan: Patient was intubated on admission s/p extubation on 11/18. History of COPD Pulmonary consult (Dr. Quach)--->help appreciated Duonebs 3ml INH RQ8 HR Solumedrol 40mg IVP Q 12 hours Chest xray (11/15/16): possible small left pleural effusion. Line and tubes are unchanged Chest Xray 11/16/16): No active disease Chest xray (11/19/16): moderate bilateral pleural effusionsm larger on left; bibasilare atelectasis/pneumonia cannot be excluded. Chest Xray (11/21/16): Interval near complete opacification of the left opal thorax. Suggestive for lung collapse and or pleural effusion. - Bronchoscope performed (Dr. Quach) 11/21/16): Thick secretions were aspirated and mucomyst 2cc was infused. Chest xray (11/22/16): severe cardiomegaly, pulmonary venous congestion and small left pleural effusion. Chest xray (11/24/16): possible small left pleural effusion. no infiltrate Chest xray (11/27/16): cardiomegaly; atherosclerotic calcifications of the aorta; opacity at the left lung base may reflect atelectasis/infiltrate and/or small effusion. Sputum culture (11/18/16): gram negative ariadne Sputum culture (11/16/16): Klebsiella pneumoniae, multidrug resistant Infectious disease (Dr. Anne) on board-->help appreciated Tigeyclcine 50mg IV 12 hours; changed from Maxipime 1 gram IV Q 24hours Monitor WBCs (13.9 on 11/20/16) 7.9 on 11/24/16 WBCs 18 on 11/29/16 Aspiration precaution initiated Head of bed 30 degree ordered Swallow eval- failed; patient is to remain on NPO diet (11/26/16). Patient refused to be repositioned for reeval today. continue NGT ABG (11/26/16): pCO2 46 pO2 144 HCO3 26.7 pH 7.39 Total CO2 O2 sat 99.3 Base excess 2.3 Hgb 11.4 CarboxyHgb 1.6 Status: Acute (2) COPD (chronic obstructive pulmonary disease) Assessment & Plan: Pulmonary Consult (Dr. Quach)-->on board help appreciated-->taper steroids Solumdedrol 40mg IV Q 12hours Duonebs 3ml INH RQ8HR Chest xray (11/22/16): severe cardiomegaly, pulmonary venous congestion and small left pleural effusion. Chest xray (11/24/16): possible small left pleural effusion. no infiltrate Chest xray (11/27/16): cardiomegaly; atherosclerotic calcifications of the aorta; opacity at the left lung base may reflect atelectasis/infiltrate and/or small effusion. Status: Chronic (3) Hyperlipidemia Assessment & Plan: Lipid panel: TG mildly elevated Crestor 10mg POqHS Status: Chronic (4) Congestive heart failure Assessment & Plan: Echocardiogram (10/02/16): left ventricle systolic function is normal, EF: 65-70% , no aortic regurgitation is present, mitral regurgitation is mild, mild trciuspid regurgitation, mild pulmonary hypertension, mild pulmonic valvular regurgitation Chest xray (11/27/16): cardiomegaly; atherosclerotic calcifications of the aorta; opacity at the left lung base may reflect atelectasis/infiltrate and/or small effusion. 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 Saeed, help appreciated Patient recently started on dialysis about 2 weeks ago at [place] per review of EMR Dialysis: T/[facility]/Sat Received dialysis on 11/27/16 Status: Chronic (7) Diabetes mellitus Assessment & Plan: Accuchecks Q6H Insulin sliding scale subq6H Hgba1c: 5.0 controlled Lantus 10 units subqHS Neurotonin 100mg PO tid Status: Chronic (8) HTN (hypertension) Assessment & Plan: Monitor blood pressure Coreg 25mg PO Q12 Norvasc 5mg PO daily Status: Chronic (9) Diarrhea Assessment & Plan: Pepcid 20mg IVq daily Blood cultures (11/14/16): no growth X 4 days X2 Urine culture (11/14/16): no growth MRSA (11/15/16): MRSA not detected Blood culture (11/16/16): no growth after 48 hours 11/16/16: No salmonella, shigella, or campylobacter Urine culture: no growth Florastor 250mg PO bid C dif: negative on 11/16, 11/20, 11/21, 11/22 Anusol increased to TID 11/25/16 Status: Acute (10) Malnutrition Assessment & Plan: Low albumin at 2.1 (11/24/16) [employer] consulted Tube feeding rate @25ml/hr as of 11/25/16 Goal as per water service dispatcher is 35ml/hr NGT removed by patient on 11/29/16. NGT replaced and ordered CXR to confirm placement. Status: Acute (11) Leukocytosis Assessment & Plan: Trending up Sputum culture (11/18/16): Klebsiella pneumoniae-->on Tigecycline Sputum culture (11/16/16): Klebsiella pneumoniae Infectious disease (Dr. Anne) on board-->help appreciated Tigeyclcine 50mg IV 12 hours (Active since 11/19/16); changed from Maxipime 1 gram IV Q 24hours Has PICC line Contact precautions May need repeat cultures if continues to uptrend Chest xray (11/22/16): severe cardiomegaly, pulmonary venous congestion and small left pleural effusion. Chest xray (11/24/16): possible small left pleural effusion. no infiltrate Blood cultures (11/14/16): no growth X 5days Urine culture (11/14/16): no growth MRSA (11/15/16): MRSA not detected Blood culture (11/16/16): no growth after 3 days 11/16/16: No salmonella, shigella, or campylobacter Urine culture: no growth Florastor 250mg PO bid C dif: negative Has bahena, PICC line, and rectocel Urine cx 11/26: Klebsiella Pneumonia Blood cx: f/u Status: Acute (12) Ulcer of sacral region, stage 1 Assessment & Plan: Stage 1 sacral ulcer Wound care consult Monitor Turn Q 2hr started patient on vitamin c, zinc sulfate and multivitamin Status: Acute (13) Abdominal pain Assessment & Plan: Bladder scan at bedside showed 40 cc of urine Kidney/bladder US: no acute findings Abd/pelv CT (11/28/16)- fluid/loose, stool within bowel may suggest diarrhea illness; Left pleural effusion w/atelectasis; superimposed pneumonia not excluded. Moderate pericardial effusion; air within bladder lumen (ddx- recent instrumentation or cystis) Will get CT abd/pelvis with PO (via NGT) contrast to r/o colitis or other pathology. Spoke with behavior support specialist, Dr. Saeed about risk of contrast induced nephropathy. He stated that PO contrast is ok and no extra session of dialysis necessary after contrast given. Status: Acute (14) Prophylactic measure Assessment & Plan: Pepcid 20mg IV q daily Florastor 250mg PO bid Turn Q2 hours Wound care Palliative care consult Swallow eval Status: Acute <Ondina Esqueda V - Last Filed: 11/29/16 18:35> Objective - Vital Signs/Intake and Output Vital Signs (last 24 hours): Temp Pulse Resp BP Pulse Ox 97.3 F L 72 16 86/25 L 99 11/29/16 16:40 11/29/16 16:40 11/29/16 16:40 11/29/16 16:40 11/29/16 16:40 Intake and Output: 11/29/16 11/29/16 06:59 18:59 Intake Total 600 Output Total 100 Balance 500 - Medications Medications: Current Medications Acetaminophen (Tylenol 650mg/20.3ml Solution Ud) 650 mg PO Q6 PRN PRN Reason: Pain, Mild (1-3) Last Admin: 11/28/16 18:30 Dose: 650 mg Acetylcysteine (Acetylcysteine 20%) 4 ml INH RQ6 [facility] Last Admin: 11/29/16 13:37 Dose: Not Given Albuterol/Ipratropium (Duoneb 3 Mg/0.5 Mg (3 Ml) Ud) 3 ml INH RQ6 [facility] Last Admin: 11/29/16 13:37 Dose: Not Given Amlodipine Besylate (Norvasc) 5 mg PO DAILY [facility] Last Admin: 11/29/16 11:22 Dose: Not Given Ascorbic Acid (Vitamin C 250 Mg Tab) 250 mg PO DAILY [facility] Last Admin: 11/29/16 11:23 Dose: Not Given Aspirin (Aspirin Chewable) 81 mg NG DAILY [facility] Last Admin: 11/29/16 11:21 Dose: Not Given Benzonatate (Tessalon Perles) 100 mg PO TID PRN PRN Reason: Sore Throat Carvedilol (Coreg) 25 mg PO Q12 [facility] Last Admin: 11/29/16 11:22 Dose: Not Given Dorzolamide HCl (Trusopt) 0 ml OU BID [facility] Last Admin: 11/29/16 17:36 Dose: 1 drop Famotidine (Pepcid) 20 mg IVP DAILY [facility] Last Admin: 11/29/16 11:23 Dose: Not Given Gabapentin (Neurontin) 100 mg PO TID [facility] Last Admin: 11/29/16 17:34 Dose: Not Given Hydralazine HCl (Apresoline) 10 mg IVP Q6H PRN PRN Reason: SBP above 180 mm Hg Last Admin: 11/26/16 23:54 Dose: 10 mg Hydrocortisone (Anusol-Hc) 0 gm DC Q8H [facility] Last Admin: 11/29/16 17:34 Dose: 1 applic Tigecycline 50 mg/ Sodium (Chloride) 100 mls @ 100 mls/hr IVPB Q12H [facility] Last Admin: 11/29/16 17:20 Dose: 100 mls/hr Amikacin Sulfate 500 mg/ (Sodium Chloride) 102 mls @ 204 mls/hr IVPB TTS [facility] Last Admin: 11/29/16 17:33 Dose: 204 mls/hr Dextrose/Sodium Chloride (Dextrose 5%/0.45% Ns 1000 Ml) 1,000 mls @ 50 mls/hr IV .Q20H [facility] Insulin Glargine (Lantus) 10 unit SC HS [facility] Last Admin: 11/29/16 00:03 Dose: Not Given Insulin Human Regular (Novolin R) 0 unit SC Q6H [facility] PRN Reason: Protocol Last Admin: 11/29/16 17:35 Dose: Not Given Multivitamins (Hexavitamin) 1 tab PO DAILY [facility] Last Admin: 11/29/16 11:22 Dose: Not Given Prednisone (Prednisone Tab) 40 mg PO DAILY [facility] Rosuvastatin Calcium (Crestor) 10 mg PO HS [facility] Last Admin: 11/28/16 22:52 Dose: 10 mg Saccharomyces Boulardii (Florastor) 250 mg PO BID [facility] Last Admin: 11/29/16 11:22 Dose: Not Given Zinc Sulfate (Zinc Sulfate 220 Mg Cap) 220 mg PO DAILY [facility] Last Admin: 11/29/16 11:23 Dose: Not Given - Labs Labs: 11/29/16 09:52 11/29/16 09:52 PT 11.5 SECONDS (9.7-12.2) 11/16/16 06:08 INR 1.0 11/16/16 06:08 APTT 31 SECONDS (21-34) 11/16/16 06:08 Assessment and Plan (1) Acute respiratory failure Status: Acute (2) COPD (chronic obstructive pulmonary disease) Status: Chronic (3) Hyperlipidemia Status: Chronic (4) Congestive heart failure Status: Chronic (5) Diabetes mellitus Status: Chronic (6) ESRD (end stage renal disease) on dialysis Status: Chronic (7) HTN (hypertension) Status: Chronic (8) Hypokalemia Status: Acute (9) Prophylactic measure Status: Acute Attending/Attestation - Attestation I have personally seen and examined this patient.: Yes I have fully participated in the care of the patient.: Yes I have reviewed all pertinent clinical information, including history, physical exam and plan: Yes Notes (Text): Patient seen, examined and case discussed with day-time resident. per overnight, patient was agitated and ripped out her NGT tube. Patient is pending swallow re-eval. Patient seen during dialysis. Patient reporting perianal; unable to assess in dialysis. Discussed with nurse, [place], patient's first dose Amikacin not due until Thursday--> spoke with Dr. Anne; will receive first of Amikacin today for multidrug resistant Klebsiella Patient's IV steroids for known hx of COPD, tapered to Prednisone 40mg PO daily. Patient started on gentle IV hydration. Will check accuchecks [id number] Patient re-evaluated in the afternoon; patient over the gluteal folds and sacral area; appears irritated, erythematous. patient has Flexseal and has noted loose stool outside of the Flexseal. Will ask general surgery to evaluate the area. Wound care referral. Patient's white count increasing and platelets mildly decreasing. patient is currently on Tigeyclcine and will start Amikacin IV today post-dialysis. Patient 's C.dif is negative.
[2016-11-29] MEDS: Albuterol-Ipratrop 3 mg / 0.5 (3 ml) UD INH SCH ×4 (01:41→19:32)
[2016-11-29] MEDS: Acetylcysteine 20% Inhal Soln (4ml) INH SCH ×4 (01:41→19:31)
[2016-11-29] MEDS: (Novolin R) Insulin Human Regular 100 units/ml vial SC SCH ×3 (05:29→17:35)
--- NOTE | 2016-11-29 08:54 | RAD ---
HISTORY: NGT placement COMPARISON: 11/14/2016 FINDINGS: LUNGS: NG tube extending into the stomach. Right central venous catheter extending into the right atrium. Left PICC line with tip extending to the cavoatrial junction. Mild venous congestion. Patchy bibasilar airspace opacities with question trace bilateral pleural effusions. Biapical pleural thickening with upper lobe granulomatous changes. Additional external looped wiring projecting over the right opal thorax. Clinical correlation. PLEURA: As above. CARDIOVASCULAR: Cardiomegaly. OSSEOUS STRUCTURES: No significant abnormalities. VISUALIZED UPPER ABDOMEN: Normal. OTHER FINDINGS: None. IMPRESSION: NG tube extending into the stomach. Right central venous catheter extending into the right atrium. Left PICC line with tip extending to the cavoatrial junction. Mild venous congestion. Patchy bibasilar airspace opacities with question trace bilateral pleural effusions. Biapical pleural thickening with upper lobe granulomatous changes. Additional external looped wiring projecting over the right opal thorax. Clinical correlation.
[2016-11-29 10:04] LABS: BASO # 0.1 K/uL (0.0-0.2); BASO % 0.3 % (0.0-2.0); HEMOGLOBIN 12.9 g/dL (11.0-16.0); LYMPH # 0.6 K/uL (1.0-4.3); LYMPH % 2.8 % (20.0-40.0); MEAN CELL VOLUME 88.7 fL (81.0-99.0); MEAN CORPUSCULAR HEMOGLOBIN 27.6 pg (27.0-31.0); MEAN CORPUSCULAR HGB CONC 31.2 g/dL (33.0-37.0); MEAN PLATELET VOLUME 12.1 fL (7.2-11.7); MONO # 0.2 K/uL (0.0-0.8); MONO % 0.9 % (0.0-10.0); NEUT # 19.5 K/uL (1.8-7.0); PLATELET COUNT 101 K/uL (130-400); RBC 4.66 Mil/uL (3.80-5.20); RED CELL DISTRIBUTION WIDTH 17.7 % (11.5-14.5); WHITE BLOOD COUNT 20.3 K/uL (4.8-10.8)
[2016-11-29 10:13] LABS: ALBUMIN 2.1 g/dL (3.5-5.0)
[2016-11-29 10:16] LABS: ALB/GLOB RATIO 0.8 (1.0-2.1)
[2016-11-29 10:17] LABS: CALCIUM 7.3 mg/dl (8.6-10.4); MAGNESIUM 2.1 mg/dL (1.6-2.3)
[2016-11-29 10:48] LABS: ANISOCYTOSIS SLIGHT; LYMPHOCYTE 3 % (20-40); MONOCYTE 1 % (0-10); NEUTROPHIL 96 % (50-75); PLATELET ESTIMATE DECREASED (NORMAL); TOTAL CELLS COUNTED 100
[2016-11-29 10:49] LABS: HYPOCHROMIC SLIGHT; OVALOCYTES SLIGHT; POIKILOCYTOSIS SLIGHT; TEARDROP CELLS SLIGHT
[2016-11-29] MEDS: Hydrocortisone 2.5% Rectal Cream(30 gm) PR SCH ×3 (11:21→23:28)
[2016-11-29] MEDS: Saccharomyces Boulardi 250 mg Cap PO SCH ×2 (11:22→18:41)
[2016-11-29] MEDS: Multiple Vitamins Tab PO SCH (11:22)
[2016-11-29] MEDS: MethylPREDNISolone 40 mg Vial IVP SCH (11:23)
[2016-11-29] MEDS: Dorzolamide 2% Opht Sol 10ml OU SCH (17:36)
[2016-11-29] MEDS: Dextrose 5%/0.45% NS 1,000 ML IV SCH (19:03)
--- NOTE | 2016-11-29 21:40 | CP.PCM.CON ---
History of Present Illness - History of Present Illness History of Present Illness: Surgery Consult note. Dr. Palacios Of note, patient is a poor historian due to current clinical state. Hx obtained from patient, chart review, and nursing staff. 61yo F with PMHx of DM, HTN, HLD, Peripheral neuropathy, PVD, COPD, Anemia, Anxiety, GERD, Obesity, CKD, Glaucoma here for altered mental status. General surgery consulted for evaluation of sacral wound. Patient c/o burning perianal/ sacral pain, unable to state duration of pain, unable to quantify pain. Denies N /V. As per nursing staff, patient has been having diarrhea during this admission. C.Diff has been sent x4, negative. Patient has rectal stool flexseal placed, however, continues to have loose stool on skin perianal area. Full ROS unable to be obtained. 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 Social Hx: [facility] resident. Allergy: Cilasatin, Imipenem, Oxycodone Review of Systems - Review of Systems Systems not reviewed;Unavailable: Altered Mental Status, Uncooperative All systems: reviewed and no additional remarkable complaints except - Constitutional Constitutional: absent: Chills, Fever - Gastrointestinal Additional comments: Suni-anal pain Past Patient History - Infectious Disease Hx of Infectious Diseases: None - Past Medical History & Family History Past Medical History?: Yes - Past Social History Smoking Status: Never Smoked - CARDIAC Hx Hypertension: Yes - PULMONARY Hx Chronic Obstructive Pulmonary Disease (COPD): Yes (ASTHMA,) - HEENT Hx HEENT Problems: Yes (WEARS RX GLASSES) Hx Glaucoma: Yes - RENAL Hx Chronic Kidney Disease: Yes - ENDOCRINE/METABOLIC Hx Diabetes Mellitus Type 2: Yes - HEMATOLOGICAL/ONCOLOGICAL Hx Anemia: Yes - INTEGUMENTARY Hx Dermatological Problems: Yes Other/Comment: notes from last pt visit/previous triage:redness under both breasts and b/l abd folds, healed skin to buttocks and sacrum - GASTROINTESTINAL Hx Gastrointestinal Disorders: Yes Other/Comment: obesity - GENITOURINARY/GYNECOLOGICAL Hx Genitourinary Disorders: Yes Hx Incontinence: Yes Hx Urinary Tract Infection: Yes - PSYCHIATRIC Hx Anxiety: Yes Hx Depression: Yes Hx Substance Use: No - ANESTHESIA Hx Anesthesia: Yes Hx Anesthesia Reactions: No Hx Malignant Hyperthermia: No Meds Allergies/Adverse Reactions: Allergies Allergy/AdvReac Type Severity Reaction Status Date / Time cilastatin sodium Allergy RASH Verified 11/14/16 18:46 [From Primaxin] imipenem [From Primaxin] Allergy RASH Verified 11/14/16 18:46 oxycodone Allergy RASH Verified 11/14/16 18:46 - Medications Medications: Current Medications Acetaminophen (Tylenol 650mg/20.3ml Solution Ud) 650 mg PO Q6 PRN PRN Reason: Pain, Mild (1-3) Last Admin: 11/28/16 18:30 Dose: 650 mg Acetylcysteine (Acetylcysteine 20%) 4 ml INH RQ6 [facility] Last Admin: 11/29/16 19:31 Dose: 4 ml Albuterol/Ipratropium (Duoneb 3 Mg/0.5 Mg (3 Ml) Ud) 3 ml INH RQ6 [facility] Last Admin: 11/29/16 19:32 Dose: 3 ml Amlodipine Besylate (Norvasc) 5 mg PO DAILY [facility] Last Admin: 11/29/16 11:22 Dose: Not Given Ascorbic Acid (Vitamin C 250 Mg Tab) 250 mg PO DAILY [facility] Last Admin: 11/29/16 11:23 Dose: Not Given Aspirin (Aspirin Chewable) 81 mg NG DAILY [facility] Last Admin: 11/29/16 11:21 Dose: Not Given Benzonatate (Tessalon Perles) 100 mg PO TID PRN PRN Reason: Sore Throat Carvedilol (Coreg) 25 mg PO Q12 [facility] Last Admin: 11/29/16 11:22 Dose: Not Given Dorzolamide HCl (Trusopt) 0 ml OU BID [facility] Last Admin: 11/29/16 17:36 Dose: 1 drop Famotidine (Pepcid) 20 mg IVP DAILY [facility] Last Admin: 11/29/16 11:23 Dose: Not Given Gabapentin (Neurontin) 100 mg PO TID [facility] Last Admin: 11/29/16 17:34 Dose: Not Given Hydralazine HCl (Apresoline) 10 mg IVP Q6H PRN PRN Reason: SBP above 180 mm Hg Last Admin: 11/26/16 23:54 Dose: 10 mg Hydrocortisone (Anusol-Hc) 0 gm CO Q8H [facility] Last Admin: 11/29/16 17:34 Dose: 1 applic Tigecycline 50 mg/ Sodium (Chloride) 100 mls @ 100 mls/hr IVPB Q12H [facility] Last Admin: 11/29/16 17:20 Dose: 100 mls/hr Amikacin Sulfate 500 mg/ (Sodium Chloride) 102 mls @ 204 mls/hr IVPB TTS [facility] Last Admin: 11/29/16 17:33 Dose: 204 mls/hr Dextrose/Sodium Chloride (Dextrose 5%/0.45% Ns 1000 Ml) 1,000 mls @ 50 mls/hr IV .Q20H [facility] Last Admin: 11/29/16 19:03 Dose: 50 mls/hr Insulin Glargine (Lantus) 10 unit SC [facility] Last Admin: 11/29/16 00:03 Dose: Not Given Insulin Human Regular (Novolin R) 0 unit SC Q6H [facility] PRN Reason: Protocol Last Admin: 11/29/16 17:35 Dose: Not Given Multivitamins (Hexavitamin) 1 tab PO DAILY [facility] Last Admin: 11/29/16 11:22 Dose: Not Given Prednisone (Prednisone Tab) 40 mg PO DAILY [facility] Rosuvastatin Calcium (Crestor) 10 mg PO [facility] Last Admin: 11/28/16 22:52 Dose: 10 mg Saccharomyces Boulardii (Florastor) 250 mg PO BID [facility] Last Admin: 11/29/16 18:41 Dose: Not Given Zinc Sulfate (Zinc Sulfate 220 Mg Cap) 220 mg PO DAILY [facility] Last Admin: 11/29/16 11:23 Dose: Not Given Physical Exam - Constitutional Appears: No Acute Distress, Agitated, Chronically Ill - Head Exam Head Exam: ATRAUMATIC, NORMAL INSPECTION, NORMOCEPHALIC - Eye Exam Eye Exam: EOMI - ENT Exam ENT Exam: Mucous Membranes Moist - Respiratory Exam Respiratory Exam: NORMAL BREATHING PATTERN - GI/Abdominal Exam GI & Abdominal Exam: Soft. absent: Distended, Guarding, Rebound, Rigid, Tenderness - Rectal Exam Additional comments: Erythema on bilateral buttocks. Erythema on sacral area. Skin intact. ?Stage 0/ 1 sacral wound. No purulent drainage, no apparent decubitus. No induration, no abscess. Flex seal in place, stool smeared on bilateral buttock and sacrum. Tender to light touch. - Extremities Exam Additional comments: Bilateral BKA noted. - Neurological Exam Neurological exam: Alert, Altered - Psychiatric Exam Psychiatric exam: Agitated Results - Vital Signs Recent Vital Signs: Last Vital Signs Temp 97.3 F L 11/29/16 16:40 Pulse 11 L 11/29/16 20:06 Resp 16 11/29/16 16:40 BP 86/25 L 11/29/16 16:40 Pulse Ox 99 11/29/16 16:40 - Labs Result Diagrams: 11/29/16 09:52 11/29/16 09:52 Labs: Laboratory Results - last 24 hr 11/28/16 11/28/16 11/29/16 17:30 21:36 05:32 WBC RBC Hgb Hct MCV MCH MCHC RDW Plt Count MPV Neut % (Auto) Lymph % (Auto) [place] % (Auto) Eos % (Auto) Baso % (Auto) Neut # Lymph # [place] # Eos # Baso # Neutrophils % (Manual) Lymphocytes % (Manual) Monocytes % (Manual) Platelet Estimate Hypochromasia (manual) Poikilocytosis (manual Anisocytosis (manual) Tear Drop Cells Ovalocytes Sodium Potassium Chloride Carbon Dioxide Anion Gap BUN Creatinine Est GFR ( Amer) Est GFR (Non-Af Amer) POC Glucose (mg/dL) 111 H 119 H Random Glucose Calcium Phosphorus Magnesium Total Bilirubin AST ALT Alkaline Phosphatase Total Protein Albumin Globulin Albumin/Globulin Ratio C. difficile Ag & Toxin Negative 11/29/16 11/29/16 11/29/16 09:52 09:52 12:28 WBC 20.3 H RBC 4.66 Hgb 12.9 Hct 41.3 MCV 88.7 MCH 27.6 MCHC 31.2 L RDW 17.7 H Plt Count 101 L MPV 12.1 H Neut % (Auto) 96.0 H Lymph % (Auto) 2.8 L [place] % (Auto) 0.9 Eos % (Auto) 0.0 Baso % (Auto) 0.3 Neut # 19.5 H Lymph # 0.6 L [place] # 0.2 Eos # 0.0 Baso # 0.1 Neutrophils % (Manual) 96 H Lymphocytes % (Manual) 3 L Monocytes % (Manual) 1 Platelet Estimate Decreased L Hypochromasia (manual) Slight Poikilocytosis (manual Slight Anisocytosis (manual) Slight Tear Drop Cells Slight Ovalocytes Slight Sodium 136 Potassium 4.1 Chloride 100 Carbon Dioxide 27 Anion Gap 14 BUN 101 H* D Creatinine 2.6 H Est GFR ( Amer) 22 Est GFR (Non-Af Amer) 19 POC Glucose (mg/dL) 103 Random Glucose 89 Calcium 7.3 L Phosphorus 5.7 H Magnesium 2.1 Total Bilirubin 0.6 AST 35 ALT 35 Alkaline Phosphatase 136 H D Total Protein 4.8 L Albumin 2.1 L Globulin 2.7 Albumin/Globulin Ratio 0.8 L C. difficile Ag & Toxin 11/29/16 16:31 WBC RBC Hgb Hct MCV MCH MCHC RDW Plt Count MPV Neut % (Auto) Lymph % (Auto) [place] % (Auto) Eos % (Auto) Baso % (Auto) Neut # Lymph # [place] # Eos # Baso # Neutrophils % (Manual) Lymphocytes % (Manual) Monocytes % (Manual) Platelet Estimate Hypochromasia (manual) Poikilocytosis (manual Anisocytosis (manual) Tear Drop Cells Ovalocytes Sodium Potassium Chloride Carbon Dioxide Anion Gap BUN Creatinine Est GFR ( Amer) Est GFR (Non-Af Amer) POC Glucose (mg/dL) 102 Random Glucose Calcium Phosphorus Magnesium Total Bilirubin AST ALT Alkaline Phosphatase Total Protein Albumin Globulin Albumin/Globulin Ratio C. difficile Ag & Toxin Assessment & Plan - Assessment and Plan (Free Text) Assessment: 61yo F with sacral/buttock skin irritation. - Diarrhea, flexseal in place with stool seepage on buttock and sacrum noted. C.Diff negative. Stool studies negative - Leukocytosis noted. Afebrile - Keep patient's sacrum/perianal area clean and dry - Wound care consult - Recommend Air mattress to relieve pressure sores - q2h turns - Continue ABX as per ID Discussed case with Dr. Suzanne Schmid PGY1 surgery pager: [phone]
[2016-11-30] MEDS: Albuterol-Ipratrop 3 mg / 0.5 (3 ml) UD INH SCH ×3 (01:27→13:20)
[2016-11-30] MEDS: Acetylcysteine 20% Inhal Soln (4ml) INH SCH ×3 (01:27→13:20)
--- NOTE | 2016-11-30 04:21 | CP.PCM.PN ---
<Alejandra Buckley - Last Filed: 11/30/16 04:18> Subjective - Date & Time of Evaluation Date of Evaluation: 11/30/16 Time of Evaluation: 04:18 - Subjective Subjective: Medicine Progress Note- Dr. Esqueda Service Patient was seen and examined at bedside in no acute distress. Patient was resting comfortably in bed. Patient reports having perianal pain. She also wants her mitts removed (originally placed because she pulled her NGT out). Patient is oriented to self, but not to place or time. Patient denies having chest pain, abdominal pain, nausea, vomiting, dizziness, headache and palpitations. Objective - Vital Signs/Intake and Output Vital Signs (last 24 hours): Temp Pulse Resp BP Pulse Ox 97.6 F 89 20 138/77 96 11/29/16 23:56 11/29/16 23:56 11/29/16 23:56 11/29/16 23:56 11/29/16 23:56 - Medications Medications: Current Medications Acetaminophen (Tylenol 650mg/20.3ml Solution Ud) 650 mg PO Q6 PRN PRN Reason: Pain, Mild (1-3) Last Admin: 11/28/16 18:30 Dose: 650 mg Acetylcysteine (Acetylcysteine 20%) 4 ml INH RQ6 [facility] Last Admin: 11/30/16 01:27 Dose: 4 ml Albuterol/Ipratropium (Duoneb 3 Mg/0.5 Mg (3 Ml) Ud) 3 ml INH RQ6 [facility] Last Admin: 11/30/16 01:27 Dose: 3 ml Amlodipine Besylate (Norvasc) 5 mg PO DAILY [facility] Last Admin: 11/29/16 11:22 Dose: Not Given Ascorbic Acid (Vitamin C 250 Mg Tab) 250 mg PO DAILY [facility] Last Admin: 11/29/16 11:23 Dose: Not Given Aspirin (Aspirin Chewable) 81 mg NG DAILY [facility] Last Admin: 11/29/16 11:21 Dose: Not Given Benzonatate (Tessalon Perles) 100 mg PO TID PRN PRN Reason: Sore Throat Carvedilol (Coreg) 25 mg PO Q12 [facility] Last Admin: 11/29/16 21:30 Dose: Not Given Dorzolamide HCl (Trusopt) 0 ml OU BID [facility] Last Admin: 11/29/16 17:36 Dose: 1 drop Famotidine (Pepcid) 20 mg IVP DAILY [facility] Last Admin: 11/29/16 11:23 Dose: Not Given Gabapentin (Neurontin) 100 mg PO TID [facility] Last Admin: 11/29/16 17:34 Dose: Not Given Hydralazine HCl (Apresoline) 10 mg IVP Q6H PRN PRN Reason: SBP above 180 mm Hg Last Admin: 11/26/16 23:54 Dose: 10 mg Hydrocortisone (Anusol-Hc) 0 gm TN Q8H [facility] Last Admin: 11/29/16 23:28 Dose: 1 applic Tigecycline 50 mg/ Sodium (Chloride) 100 mls @ 100 mls/hr IVPB Q12H [facility] Last Admin: 11/29/16 23:27 Dose: 100 mls/hr Amikacin Sulfate 500 mg/ (Sodium Chloride) 102 mls @ 204 mls/hr IVPB TTS [facility] Last Admin: 11/29/16 17:33 Dose: 204 mls/hr Dextrose/Sodium Chloride (Dextrose 5%/0.45% Ns 1000 Ml) 1,000 mls @ 50 mls/hr IV .Q20H [facility] Last Admin: 11/29/16 19:03 Dose: 50 mls/hr Insulin Glargine (Lantus) 10 unit SC [facility] Last Admin: 11/29/16 22:00 Dose: Not Given Insulin Human Regular (Novolin R) 0 unit SC Q6H [facility] PRN Reason: Protocol Last Admin: 11/30/16 00:00 Dose: Not Given Multivitamins (Hexavitamin) 1 tab PO DAILY [facility] Last Admin: 11/29/16 11:22 Dose: Not Given Prednisone (Prednisone Tab) 40 mg PO DAILY [facility] Rosuvastatin Calcium (Crestor) 10 mg PO HS [facility] Last Admin: 11/29/16 23:22 Dose: Not Given Saccharomyces Boulardii (Florastor) 250 mg PO BID [facility] Last Admin: 11/29/16 18:41 Dose: Not Given Zinc Sulfate (Zinc Sulfate 220 Mg Cap) 220 mg PO DAILY [facility] Last Admin: 11/29/16 11:23 Dose: Not Given - Labs Labs: 11/29/16 09:52 11/29/16 09:52 PT 11.5 SECONDS (9.7-12.2) 11/16/16 06:08 INR 1.0 11/16/16 06:08 APTT 31 SECONDS (21-34) 11/16/16 06:08 - Constitutional Appears: No Acute Distress - Head Exam Head Exam: NORMAL INSPECTION, NORMOCEPHALIC - Eye Exam Eye Exam: EOMI, Normal appearance - ENT Exam ENT Exam: Mucous Membranes Moist - Neck Exam Neck Exam: Normal Inspection - Respiratory Exam Respiratory Exam: Decreased Breath Sounds, Wheezes, NORMAL BREATHING PATTERN - Cardiovascular Exam Cardiovascular Exam: REGULAR RHYTHM, +S1, +S2 - GI/Abdominal Exam GI & Abdominal Exam: Soft, Normal Bowel Sounds. absent: Tenderness - Extremities Exam Extremities Exam: absent: Normal Inspection Additional comments: b/l aka - Neurological Exam Neurological Exam: Alert, Awake. absent: Oriented x3 - Psychiatric Exam Psychiatric exam: Normal Affect, Normal Mood - Skin Skin Exam: Normal Color, Warm Additional comments: sacral region- possible stage 1 sacral ulcer forming; skin is intact, but erythematous. Assessment and Plan (1) Acute respiratory failure Assessment & Plan: Patient was intubated on admission s/p extubation on 11/18. History of COPD Pulmonary consult (Dr. Quach)--->help appreciated Duonebs 3ml INH RQ8 HR Solumedrol 40mg IVP Q 12 hours Chest xray (11/15/16): possible small left pleural effusion. Line and tubes are unchanged Chest Xray 11/16/16): No active disease Chest xray (11/19/16): moderate bilateral pleural effusionsm larger on left; bibasilare atelectasis/pneumonia cannot be excluded. Chest Xray (11/21/16): Interval near complete opacification of the left opal thorax. Suggestive for lung collapse and or pleural effusion. Chest xray (11/22/16): severe cardiomegaly, pulmonary venous congestion and small left pleural effusion. Chest xray (11/24/16): possible small left pleural effusion. no infiltrate Chest xray (11/27/16): cardiomegaly; atherosclerotic calcifications of the aorta; opacity at the left lung base may reflect atelectasis/infiltrate and/or small effusion. Bronchoscope performed (Dr. Quach) 11/21/16): Thick secretions were aspirated and mucomyst 2cc was infused. Sputum culture (11/18/16): gram negative ariadne Sputum culture (11/16/16): Klebsiella pneumoniae, multidrug resistant Infectious disease (Dr. Anne) on board-->help appreciated Tigeyclcine 50mg IV 12 hours; changed from Maxipime 1 gram IV Q 24hours Monitor WBCs (13.9 on 11/20/16) 7.9 on 11/24/16 WBCs 18 on 11/28/16 WBCs 20.3 on 11/29/16 Aspiration precaution initiated Head of bed 30 degree ordered Swallow eval- failed; patient is to remain on NPO diet (11/26/16). Patient refused to be repositioned for reeval today. continue NGT ABG (11/26/16): pCO2 46 pO2 144 HCO3 26.7 pH 7.39 Total CO2 O2 sat 99.3 Base excess 2.3 Hgb 11.4 CarboxyHgb 1.6 Status: Acute (2) COPD (chronic obstructive pulmonary disease) Assessment & Plan: Pulmonary Consult (Dr. Quach)-->on board help appreciated-->taper steroids Solumdedrol 40mg IV Q 12hours Prednisone 40mg PO daily Duonebs 3ml INH RQ8HR Bronchoscope performed (Dr. Quach) 11/21/16): Thick secretions were aspirated and mucomyst 2cc was infused. Chest xray (11/15/16): possible small left pleural effusion. Line and tubes are unchanged Chest Xray 11/16/16): No active disease Chest xray (11/19/16): moderate bilateral pleural effusionsm larger on left; bibasilare atelectasis/pneumonia cannot be excluded. Chest Xray (11/21/16): Interval near complete opacification of the left opal thorax. Suggestive for lung collapse and or pleural effusion. Chest xray (11/22/16): severe cardiomegaly, pulmonary venous congestion and small left pleural effusion. Chest xray (11/24/16): possible small left pleural effusion. no infiltrate Chest xray (11/27/16): cardiomegaly; atherosclerotic calcifications of the aorta; opacity at the left lung base may reflect atelectasis/infiltrate and/or small effusion. ABG (11/26/16): pCO2 46 pO2 144 HCO3 26.7 pH 7.39 Total CO2 O2 sat 99.3 Base excess 2.3 Hgb 11.4 CarboxyHgb 1.6 Status: Chronic (3) Hyperlipidemia Assessment & Plan: Lipid panel: TG mildly elevated Crestor 10mg POqHS Status: Chronic (4) Congestive heart failure Assessment & Plan: Echocardiogram (10/02/16): left ventricle systolic function is normal, EF: 65-70% , no aortic regurgitation is present, mitral regurgitation is mild, mild trciuspid regurgitation, mild pulmonary hypertension, mild pulmonic valvular regurgitation Chest xray (11/27/16): cardiomegaly; atherosclerotic calcifications of the aorta; opacity at the left lung base may reflect atelectasis/infiltrate and/or small effusion. 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 Saeed, help appreciated Patient recently started on dialysis about 2 weeks ago at [facility] per review of EMR Dialysis: T/[facility]/Sat Received dialysis on 11/27/16 Status: Chronic (7) Diabetes mellitus Assessment & Plan: Accuchecks Q6H Insulin sliding scale subq6H Hgba1c: 5.0 controlled Lantus 10 units subqHS Neurotonin 100mg PO tid Status: Chronic (8) HTN (hypertension) Assessment & Plan: Monitor blood pressure Coreg 25mg PO Q12 Norvasc 5mg PO daily Status: Chronic (9) Diarrhea Assessment & Plan: Pepcid 20mg IVq daily Blood cultures (11/14/16): no growth X 4 days X2 Urine culture (11/14/16): no growth MRSA (11/15/16): MRSA not detected Blood culture (11/16/16): no growth after 48 hours 11/16/16: No salmonella, shigella, or campylobacter Urine culture: no growth Florastor 250mg PO bid C dif: negative on 11/16, 11/20, 11/21, 11/22 Anusol increased to TID 11/25/16 Status: Acute (10) Malnutrition Assessment & Plan: Low albumin at 2.1 (11/24/16) Drawing In Hand consulted Tube feeding rate @25ml/hr as of 11/25/16 Goal as per general maintenance mechanic is 35ml/hr NGT removed by patient on 11/29/16. NGT replaced and ordered CXR to confirm placement. NGT was removed a second time on 11/29/16. NGT has not been replaced. Status: Acute (11) Leukocytosis Assessment & Plan: Trending up Sputum culture (11/18/16): Klebsiella pneumoniae-->on Tigecycline Sputum culture (11/16/16): Klebsiella pneumoniae Bronchial culture (11/21/16): Klebsiella pneumoniae Infectious disease (Dr. Anne) on board-->help appreciated Tigeyclcine 50mg IV 12 hours (Active since 11/19/16); changed from Maxipime 1 gram IV Q 24hours As per ID, started Amikacin 500mg IV QTTS for multidrug resistant Klebsiella. () Chest xray (11/22/16): severe cardiomegaly, pulmonary venous congestion and small left pleural effusion. Chest xray (11/24/16): possible small left pleural effusion. no infiltrate Blood cultures (11/14/16): no growth X 5days Blood culture (11/16/16): no growth after 3 days Urine culture (11/14/16): no growth Urine cx 11/26: Klebsiella Pneumonia, multiresistant MRSA (11/15/16): MRSA not detected 11/16/16: No salmonella, shigella, or campylobacter Florastor 250mg PO bid C dif: negative Has bahena, PICC line, and rectocel Contact precautions May need repeat cultures if continues to uptrend Status: Acute (12) Ulcer of sacral region, stage 1 Assessment & Plan: Stage 1 sacral ulcer Wound care consult Monitor Turn Q 2hr started patient on vitamin c, zinc sulfate and multivitamin Surgical consult, Dr. Palacios, help appreciated As per surgery, keep sacral/perianal area clean and dry, would care consult, recommend air mattress to relieve pressure sores; q2h turns, and continue antibiotics as per ID. Status: Acute (13) Abdominal pain Assessment & Plan: Bladder scan at bedside showed 40 cc of urine Kidney/bladder US: no acute findings Abd/pelv CT (11/28/16)- fluid/loose, stool within bowel may suggest diarrhea illness; Left pleural effusion w/atelectasis; superimposed pneumonia not excluded. Moderate pericardial effusion; air within bladder lumen (ddx- recent instrumentation or cystis) Will get CT abd/pelvis with PO (via NGT) contrast to r/o colitis or other pathology. Spoke with hospice music therapist, Dr. Saeed about risk of contrast induced nephropathy. He stated that PO contrast is ok and no extra session of dialysis necessary after contrast given. CT abd/pelvis not completed: patient removed NGT twice and did not finished taking contrast. Status: Acute (14) Prophylactic measure Assessment & Plan: Pepcid 20mg IV q daily Florastor 250mg PO bid Turn Q2 hours Wound care Palliative care consult Swallow eval Status: Acute <Ondina Esqueda V - Last Filed: 11/30/16 17:06> Objective - Vital Signs/Intake and Output Vital Signs (last 24 hours): Temp Pulse Resp BP Pulse Ox 98.4 F 96 H 20 164/66 H 98 11/30/16 16:00 11/30/16 16:00 11/30/16 16:00 11/30/16 16:00 11/30/16 16:00 - Medications Medications: Current Medications Acetaminophen (Tylenol 650mg/20.3ml Solution Ud) 650 mg PO Q6 PRN PRN Reason: Pain, Mild (1-3) Last Admin: 11/28/16 18:30 Dose: 650 mg Acetylcysteine (Acetylcysteine 20%) 4 ml INH RQ6 [facility] Last Admin: 11/30/16 13:20 Dose: Not Given Albuterol/Ipratropium (Duoneb 3 Mg/0.5 Mg (3 Ml) Ud) 3 ml INH RQ6 [facility] Last Admin: 11/30/16 13:20 Dose: Not Given Amlodipine Besylate (Norvasc) 5 mg PO DAILY [facility] Last Admin: 11/30/16 09:51 Dose: Not Given Ascorbic Acid (Vitamin C 250 Mg Tab) 250 mg PO DAILY [facility] Last Admin: 11/30/16 09:52 Dose: Not Given Aspirin (Aspirin Chewable) 81 mg NG DAILY [facility] Last Admin: 11/30/16 09:50 Dose: Not Given Benzonatate (Tessalon Perles) 100 mg PO TID PRN PRN Reason: Sore Throat Carvedilol (Coreg) 25 mg PO Q12 [facility] Last Admin: 11/30/16 09:50 Dose: Not Given Dorzolamide HCl (Trusopt) 0 ml OU BID [facility] Last Admin: 11/30/16 10:12 Dose: 1 drop Gabapentin (Neurontin) 100 mg PO TID [facility] Last Admin: 11/30/16 13:04 Dose: Not Given Hydralazine HCl (Apresoline) 10 mg IVP Q6H PRN PRN Reason: SBP above 180 mm Hg Last Admin: 11/26/16 23:54 Dose: 10 mg Hydrocortisone (Anusol-Hc) 0 gm TN Q8H [facility] Last Admin: 11/30/16 15:47 Dose: 1 applic Tigecycline 50 mg/ Sodium (Chloride) 100 mls @ 100 mls/hr IVPB Q12H [facility] Last Admin: 11/30/16 11:14 Dose: 100 mls/hr Amikacin Sulfate 500 mg/ (Sodium Chloride) 102 mls @ 204 mls/hr IVPB TTS [facility] Last Admin: 11/29/16 17:33 Dose: 204 mls/hr Dextrose/Sodium Chloride (Dextrose 5%/0.45% Ns 1000 Ml) 1,000 mls @ 50 mls/hr IV .Q20H [facility] Last Admin: 11/30/16 15:46 Dose: 50 mls/hr Insulin Glargine (Lantus) 10 unit SC [facility] Last Admin: 11/29/16 22:00 Dose: Not Given Insulin Human Regular (Novolin R) 0 unit SC Q6H [facility] PRN Reason: Protocol Last Admin: 11/30/16 13:14 Dose: Not Given Multivitamins (Hexavitamin) 1 tab PO DAILY [facility] Last Admin: 11/30/16 09:51 Dose: Not Given Nystatin (Nystop Topical Powder) 1 applic TOP BID [facility] Prednisone (Prednisone Tab) 40 mg PO DAILY [facility] Last Admin: 11/30/16 09:52 Dose: Not Given Rosuvastatin Calcium (Crestor) 10 mg PO HS [facility] Last Admin: 11/29/16 23:22 Dose: Not Given Saccharomyces Boulardii (Florastor) 250 mg PO BID [facility] Last Admin: 11/30/16 09:51 Dose: Not Given Zinc Sulfate (Zinc Sulfate 220 Mg Cap) 220 mg PO DAILY [facility] Last Admin: 11/30/16 09:52 Dose: Not Given - Labs Labs: 11/30/16 07:56 11/30/16 07:56 PT 11.5 SECONDS (9.7-12.2) 11/16/16 06:08 INR 1.0 11/16/16 06:08 APTT 31 SECONDS (21-34) 11/16/16 06:08 Assessment and Plan (1) Acute respiratory failure Status: Acute (2) COPD (chronic obstructive pulmonary disease) Status: Chronic (3) Hyperlipidemia Status: Chronic (4) Congestive heart failure Status: Chronic (5) Diabetes mellitus Status: Chronic (6) ESRD (end stage renal disease) on dialysis Status: Chronic (7) HTN (hypertension) Status: Chronic (8) Hypokalemia Status: Acute (9) Prophylactic measure Status: Acute Attending/Attestation - Attestation I have personally seen and examined this patient.: Yes I have fully participated in the care of the patient.: Yes I have reviewed all pertinent clinical information, including history, physical exam and plan: Yes Notes (Text): Patient seen, examined and case discussed with day-time resident. Patient is upset and at times agitated. She calms once she gets her glasses since she cannot see well. Patient responds in Nepali and is hard of hearing in right ear. Patient cannot be on narcotic medications; discussed with son, will cause delirium essentially. Patient pulled out her NGT tube last morning; will attempt again today. Patient is pending swallow re-evaluation. Patient is on gentle IV hydration since she is a diabetic. Bahena exchanged since patient has a multidrug resistant Klebisella in urine sensitive to Amikacin; and has multidrug resistant Klebsiella pneumonia verified in bronchoscopy. Patient is urinary and stool incontinence, erythematous over the sacral and gluteal folds and over the groin area there is erythema. patient given Nystatin power to be applied over the groin area; nursing advised turn q 2hours Order for air mattress placed. Patient received first dose of Amikacin post-dialysis yesterday. Patient was evaluated by wound care today as well as surgery yesterday regarding sacral incontinence. Patient is refusing medications by mouth. Will transition steroids to Solumedrol 40mg IV q daily until swallow eval or NGT tube is available for use. Patient ordered for procalcitonin for tomorrow given white count is increasing and platelets are decreasing.
[2016-11-30] MEDS: (Novolin R) Insulin Human Regular 100 units/ml vial SC SCH ×4 (06:32→20:17)
[2016-11-30] MEDS: Hydrocortisone 2.5% Rectal Cream(30 gm) PR SCH ×3 (07:35→23:30)
[2016-11-30 08:11] LABS: BASO % 0.2 % (0.0-2.0); EOS # 0.1 K/uL (0.0-0.7); EOS % 0.3 % (0.0-4.0); HEMOGLOBIN 12.5 g/dL (11.0-16.0); LYMPH # 1.7 K/uL (1.0-4.3); LYMPH % 8.6 % (20.0-40.0); MEAN CELL VOLUME 88.9 fL (81.0-99.0); MEAN CORPUSCULAR HEMOGLOBIN 27.8 pg (27.0-31.0); MEAN CORPUSCULAR HGB CONC 31.3 g/dL (33.0-37.0); MEAN PLATELET VOLUME 11.8 fL (7.2-11.7); MONO # 1.1 K/uL (0.0-0.8); MONO % 5.3 % (0.0-10.0); NEUT # 17.1 K/uL (1.8-7.0); NEUT % 85.6 % (50.0-75.0); PLATELET COUNT 85 K/uL (130-400); RBC 4.48 Mil/uL (3.80-5.20); RED CELL DISTRIBUTION WIDTH 18.7 % (11.5-14.5)
[2016-11-30 08:25] LABS: ALBUMIN 1.9 g/dL (3.5-5.0)
[2016-11-30 08:28] LABS: ALB/GLOB RATIO 0.7 (1.0-2.1)
[2016-11-30 08:29] LABS: CALCIUM 6.9 mg/dl (8.6-10.4)
[2016-11-30 08:30] LABS: MAGNESIUM 1.9 mg/dL (1.6-2.3)
[2016-11-30 09:02] LABS: LYMPHOCYTE 9 % (20-40); MONOCYTE 5 % (0-10); NEUTROPHIL 86 % (50-75); PLATELET ESTIMATE DECREASED (NORMAL); TOTAL CELLS COUNTED 100
[2016-11-30 09:03] LABS: ANISOCYTOSIS SLIGHT; HYPOCHROMIC SLIGHT; OVALOCYTES SLIGHT; SCHISTOCYTES SLIGHT; TEARDROP CELLS SLIGHT
[2016-11-30] MEDS: Multiple Vitamins Tab PO SCH (09:51)
[2016-11-30] MEDS: Saccharomyces Boulardi 250 mg Cap PO SCH ×2 (09:51→17:22)
[2016-11-30] MEDS: Dorzolamide 2% Opht Sol 10ml OU SCH ×2 (10:12→17:20)
--- NOTE | 2016-11-30 15:41 | CP.PCM.PN ---
Subjective - Date & Time of Evaluation Date of Evaluation: 11/30/16 Time of Evaluation: 08:00 - Subjective Subjective: no fever wbc trending up Objective - Vital Signs/Intake and Output Vital Signs (last 24 hours): Temp Pulse Resp BP Pulse Ox 97.6 F 89 20 138/77 96 11/29/16 23:56 11/29/16 23:56 11/29/16 23:56 11/29/16 23:56 11/29/16 23:56 - Medications Medications: Current Medications Acetaminophen (Tylenol 650mg/20.3ml Solution Ud) 650 mg PO Q6 PRN PRN Reason: Pain, Mild (1-3) Last Admin: 11/28/16 18:30 Dose: 650 mg Acetylcysteine (Acetylcysteine 20%) 4 ml INH RQ6 [facility] Last Admin: 11/30/16 13:20 Dose: Not Given Albuterol/Ipratropium (Duoneb 3 Mg/0.5 Mg (3 Ml) Ud) 3 ml INH RQ6 [facility] Last Admin: 11/30/16 13:20 Dose: Not Given Amlodipine Besylate (Norvasc) 5 mg PO DAILY [facility] Last Admin: 11/30/16 09:51 Dose: Not Given Ascorbic Acid (Vitamin C 250 Mg Tab) 250 mg PO DAILY [facility] Last Admin: 11/30/16 09:52 Dose: Not Given Aspirin (Aspirin Chewable) 81 mg NG DAILY [facility] Last Admin: 11/30/16 09:50 Dose: Not Given Benzonatate (Tessalon Perles) 100 mg PO TID PRN PRN Reason: Sore Throat Carvedilol (Coreg) 25 mg PO Q12 [facility] Last Admin: 11/30/16 09:50 Dose: Not Given Dorzolamide HCl (Trusopt) 0 ml OU BID [facility] Last Admin: 11/30/16 10:12 Dose: 1 drop Famotidine (Pepcid) 20 mg IVP DAILY [facility] Last Admin: 11/30/16 10:10 Dose: 20 mg Gabapentin (Neurontin) 100 mg PO TID [facility] Last Admin: 11/30/16 13:04 Dose: Not Given Hydralazine HCl (Apresoline) 10 mg IVP Q6H PRN PRN Reason: SBP above 180 mm Hg Last Admin: 11/26/16 23:54 Dose: 10 mg Hydrocortisone (Anusol-Hc) 0 gm CA Q8H [facility] Last Admin: 11/30/16 07:35 Dose: Not Given Tigecycline 50 mg/ Sodium (Chloride) 100 mls @ 100 mls/hr IVPB Q12H [facility] Last Admin: 11/30/16 11:14 Dose: 100 mls/hr Amikacin Sulfate 500 mg/ (Sodium Chloride) 102 mls @ 204 mls/hr IVPB TTS [facility] Last Admin: 11/29/16 17:33 Dose: 204 mls/hr Dextrose/Sodium Chloride (Dextrose 5%/0.45% Ns 1000 Ml) 1,000 mls @ 50 mls/hr IV .Q20H [facility] Last Admin: 11/29/16 19:03 Dose: 50 mls/hr Insulin Glargine (Lantus) 10 unit SC [facility] Last Admin: 11/29/16 22:00 Dose: Not Given Insulin Human Regular (Novolin R) 0 unit SC Q6H [facility] PRN Reason: Protocol Last Admin: 11/30/16 13:14 Dose: Not Given Multivitamins (Hexavitamin) 1 tab PO DAILY [facility] Last Admin: 11/30/16 09:51 Dose: Not Given Nystatin (Nystop Topical Powder) 1 applic TOP BID [facility] Prednisone (Prednisone Tab) 40 mg PO DAILY [facility] Last Admin: 11/30/16 09:52 Dose: Not Given Rosuvastatin Calcium (Crestor) 10 mg PO HS [facility] Last Admin: 11/29/16 23:22 Dose: Not Given Saccharomyces Boulardii (Florastor) 250 mg PO BID [facility] Last Admin: 11/30/16 09:51 Dose: Not Given Zinc Sulfate (Zinc Sulfate 220 Mg Cap) 220 mg PO DAILY [facility] Last Admin: 11/30/16 09:52 Dose: Not Given - Labs Labs: 11/30/16 07:56 11/30/16 07:56 PT 11.5 SECONDS (9.7-12.2) 11/16/16 06:08 INR 1.0 11/16/16 06:08 APTT 31 SECONDS (21-34) 11/16/16 06:08 - Constitutional Appears: Non-toxic, Chronically Ill - Head Exam Head Exam: NORMOCEPHALIC - Eye Exam Eye Exam: PERRL. absent: Scleral icterus - ENT Exam ENT Exam: Mucous Membranes Dry - Neck Exam Neck Exam: absent: Lymphadenopathy - Respiratory Exam Respiratory Exam: Decreased Breath Sounds, Rhonchi - Cardiovascular Exam Cardiovascular Exam: REGULAR RHYTHM - GI/Abdominal Exam GI & Abdominal Exam: Distended, Soft - Rectal Exam Rectal Exam: Deferred - Exam Exam: NORMAL INSPECTION - Extremities Exam Extremities Exam: absent: Pedal Edema - Back Exam Back Exam: absent: CVA tenderness (L), CVA tenderness (R) - Neurological Exam Neurological Exam: Alert, Awake, Oriented x3 - Psychiatric Exam Psychiatric exam: Normal Mood - Skin Skin Exam: Dry Additional comments: bilat aka Assessment and Plan (1) Acute respiratory failure Status: Acute (2) COPD (chronic obstructive pulmonary disease) Status: Chronic (3) ESRD (end stage renal disease) on dialysis Status: Chronic (4) Congestive heart failure Status: Chronic (5) Diabetes mellitus Status: Chronic (6) HTN (hypertension) Status: Chronic (7) S/P AKA (above knee amputation) bilateral Status: Acute (8) S/P AKA (above knee amputation) bilateral Status: Acute
[2016-11-30] MEDS: Dextrose 5%/0.45% NS 1,000 ML IV SCH (15:46)
[2016-11-30] MEDS: MethylPREDNISolone 40 mg Vial IVP SCH (17:11)
--- NOTE | 2016-11-30 18:38 | CP.PCM.PN ---
Subjective - Date & Time of Evaluation Date of Evaluation: 11/30/16 Time of Evaluation: 13:00 - Subjective Subjective: Patient seen and examined. Lying comfortably in no acute distress Denies cough, denies fever chi, denies chest pain Continue nebulizer treatment Continue antibiotics Stable from pulmonary st Objective - Vital Signs/Intake and Output Vital Signs (last 24 hours): Temp Pulse Resp BP Pulse Ox 98.4 F 96 H 20 164/66 H 98 11/30/16 16:00 11/30/16 16:00 11/30/16 16:00 11/30/16 16:00 11/30/16 16:00 - Medications Medications: Current Medications Acetaminophen (Tylenol 650mg/20.3ml Solution Ud) 650 mg PO Q6 PRN PRN Reason: Pain, Mild (1-3) Last Admin: 11/28/16 18:30 Dose: 650 mg Acetylcysteine (Acetylcysteine 20%) 4 ml INH RQ6 [facility] Last Admin: 11/30/16 13:20 Dose: Not Given Albuterol/Ipratropium (Duoneb 3 Mg/0.5 Mg (3 Ml) Ud) 3 ml INH RQ6 [facility] Last Admin: 11/30/16 13:20 Dose: Not Given Amlodipine Besylate (Norvasc) 5 mg PO DAILY [facility] Last Admin: 11/30/16 09:51 Dose: Not Given Ascorbic Acid (Vitamin C 250 Mg Tab) 250 mg PO DAILY [facility] Last Admin: 11/30/16 09:52 Dose: Not Given Aspirin (Aspirin Chewable) 81 mg NG DAILY [facility] Last Admin: 11/30/16 09:50 Dose: Not Given Benzonatate (Tessalon Perles) 100 mg PO TID PRN PRN Reason: Sore Throat Carvedilol (Coreg) 25 mg PO Q12 [facility] Last Admin: 11/30/16 09:50 Dose: Not Given Dorzolamide HCl (Trusopt) 0 ml OU BID [facility] Last Admin: 11/30/16 17:20 Dose: 1 drop Gabapentin (Neurontin) 100 mg PO TID [facility] Last Admin: 11/30/16 17:22 Dose: 100 mg Hydralazine HCl (Apresoline) 10 mg IVP Q6H PRN PRN Reason: SBP above 180 mm Hg Last Admin: 11/26/16 23:54 Dose: 10 mg Hydrocortisone (Anusol-Hc) 0 gm [place] Q8H [facility] Last Admin: 11/30/16 15:47 Dose: 1 applic Tigecycline 50 mg/ Sodium (Chloride) 100 mls @ 100 mls/hr IVPB Q12H [facility] Last Admin: 11/30/16 11:14 Dose: 100 mls/hr Amikacin Sulfate 500 mg/ (Sodium Chloride) 102 mls @ 204 mls/hr IVPB TTS [facility] Last Admin: 11/29/16 17:33 Dose: 204 mls/hr Dextrose/Sodium Chloride (Dextrose 5%/0.45% Ns 1000 Ml) 1,000 mls @ 50 mls/hr IV .Q20H [facility] Last Admin: 11/30/16 15:46 Dose: 50 mls/hr Insulin Glargine (Lantus) 10 unit SC [facility] Last Admin: 11/29/16 22:00 Dose: Not Given Insulin Human Regular (Novolin R) 0 unit SC Q6H [facility] PRN Reason: Protocol Last Admin: 11/30/16 13:14 Dose: Not Given Methylprednisolone (Solu-Medrol) 40 mg IVP DAILY [facility] Last Admin: 11/30/16 17:11 Dose: 40 mg Multivitamins (Hexavitamin) 1 tab PO DAILY [facility] Last Admin: 11/30/16 09:51 Dose: Not Given Nystatin (Nystop Topical Powder) 1 applic TOP BID [facility] Last Admin: 11/30/16 17:24 Dose: 1 applic Prednisone (Prednisone Tab) 40 mg PO DAILY [facility] Last Admin: 11/30/16 09:52 Dose: Not Given Rosuvastatin Calcium (Crestor) 10 mg PO [facility] Last Admin: 11/29/16 23:22 Dose: Not Given Saccharomyces Boulardii (Florastor) 250 mg PO BID [facility] Last Admin: 11/30/16 17:22 Dose: 250 mg Zinc Sulfate (Zinc Sulfate 220 Mg Cap) 220 mg PO DAILY [facility] Last Admin: 11/30/16 09:52 Dose: Not Given - Labs Labs: 11/30/16 07:56 11/30/16 07:56 PT 11.5 SECONDS (9.7-12.2) 11/16/16 06:08 INR 1.0 11/16/16 06:08 APTT 31 SECONDS (21-34) 11/16/16 06:08 Assessment and Plan (1) Collapse of left lung Status: Acute (2) Hypokalemia Status: Acute (3) COPD (chronic obstructive pulmonary disease) Status: Chronic (4) ESRD (end stage renal disease) on dialysis Status: Chronic
--- NOTE | 2016-11-30 19:32 | CP.PCM.PN ---
Subjective - Date & Time of Evaluation Date of Evaluation: 11/30/16 Time of Evaluation: 19:31 - Subjective Subjective: pt is seen and examined by me, no complaints of sob, no cp, c/o slight abdominal pain Objective - Vital Signs/Intake and Output Vital Signs (last 24 hours): Temp Pulse Resp BP Pulse Ox 98.4 F 96 H 20 164/66 H 98 11/30/16 16:00 11/30/16 16:00 11/30/16 16:00 11/30/16 16:00 11/30/16 16:00 - Medications Medications: Current Medications Acetaminophen (Tylenol 650mg/20.3ml Solution Ud) 650 mg PO Q6 PRN PRN Reason: Pain, Mild (1-3) Last Admin: 11/28/16 18:30 Dose: 650 mg Acetylcysteine (Acetylcysteine 20%) 4 ml INH RQ6 [facility] Last Admin: 11/30/16 13:20 Dose: Not Given Albuterol/Ipratropium (Duoneb 3 Mg/0.5 Mg (3 Ml) Ud) 3 ml INH RQ6 [facility] Last Admin: 11/30/16 13:20 Dose: Not Given Amlodipine Besylate (Norvasc) 5 mg PO DAILY [facility] Last Admin: 11/30/16 09:51 Dose: Not Given Ascorbic Acid (Vitamin C 250 Mg Tab) 250 mg PO DAILY [facility] Last Admin: 11/30/16 09:52 Dose: Not Given Aspirin (Aspirin Chewable) 81 mg NG DAILY [facility] Last Admin: 11/30/16 09:50 Dose: Not Given Benzonatate (Tessalon Perles) 100 mg PO TID PRN PRN Reason: Sore Throat Carvedilol (Coreg) 25 mg PO Q12 [facility] Last Admin: 11/30/16 09:50 Dose: Not Given Dorzolamide HCl (Trusopt) 0 ml OU BID [facility] Last Admin: 11/30/16 17:20 Dose: 1 drop Gabapentin (Neurontin) 100 mg PO TID [facility] Last Admin: 11/30/16 17:22 Dose: 100 mg Hydralazine HCl (Apresoline) 10 mg IVP Q6H PRN PRN Reason: SBP above 180 mm Hg Last Admin: 11/26/16 23:54 Dose: 10 mg Hydrocortisone (Anusol-Hc) 0 gm [place] Q8H [facility] Last Admin: 11/30/16 15:47 Dose: 1 applic Tigecycline 50 mg/ Sodium (Chloride) 100 mls @ 100 mls/hr IVPB Q12H [facility] Last Admin: 11/30/16 11:14 Dose: 100 mls/hr Amikacin Sulfate 500 mg/ (Sodium Chloride) 102 mls @ 204 mls/hr IVPB TTS [facility] Last Admin: 11/29/16 17:33 Dose: 204 mls/hr Dextrose/Sodium Chloride (Dextrose 5%/0.45% Ns 1000 Ml) 1,000 mls @ 50 mls/hr IV .Q20H [facility] Last Admin: 11/30/16 15:46 Dose: 50 mls/hr Insulin Glargine (Lantus) 10 unit SC [facility] Last Admin: 11/29/16 22:00 Dose: Not Given Insulin Human Regular (Novolin R) 0 unit SC Q6H [facility] PRN Reason: Protocol Last Admin: 11/30/16 13:14 Dose: Not Given Methylprednisolone (Solu-Medrol) 40 mg IVP DAILY [facility] Last Admin: 11/30/16 17:11 Dose: 40 mg Multivitamins (Hexavitamin) 1 tab PO DAILY [facility] Last Admin: 11/30/16 09:51 Dose: Not Given Nystatin (Nystop Topical Powder) 1 applic TOP BID [facility] Last Admin: 11/30/16 17:24 Dose: 1 applic Prednisone (Prednisone Tab) 40 mg PO DAILY [facility] Last Admin: 11/30/16 09:52 Dose: Not Given Rosuvastatin Calcium (Crestor) 10 mg PO [facility] Last Admin: 11/29/16 23:22 Dose: Not Given Saccharomyces Boulardii (Florastor) 250 mg PO BID [facility] Last Admin: 11/30/16 17:22 Dose: 250 mg Zinc Sulfate (Zinc Sulfate 220 Mg Cap) 220 mg PO DAILY [facility] Last Admin: 11/30/16 09:52 Dose: Not Given - Labs Labs: 11/30/16 07:56 11/30/16 07:56 PT 11.5 SECONDS (9.7-12.2) 11/16/16 06:08 INR 1.0 11/16/16 06:08 APTT 31 SECONDS (21-34) 11/16/16 06:08 - Constitutional Appears: Well, Non-toxic, No Acute Distress - Head Exam Head Exam: ATRAUMATIC, NORMAL INSPECTION, NORMOCEPHALIC - Eye Exam Eye Exam: Conjunctival injection, EOMI, Normal appearance Pupil Exam: NORMAL ACCOMODATION, PERRL - ENT Exam ENT Exam: Mucous Membranes Moist - Neck Exam Neck Exam: Full ROM, Normal Inspection - Respiratory Exam Respiratory Exam: Clear to Ausculation Bilateral, NORMAL BREATHING PATTERN - Cardiovascular Exam Cardiovascular Exam: REGULAR RHYTHM, +S1, +S2 - GI/Abdominal Exam GI & Abdominal Exam: Soft, Normal Bowel Sounds - Rectal Exam Rectal Exam: Deferred Additional comments: mild diffuse tenderness+, no guarding, no rigidity - Extremities Exam Additional comments: B/L AKA - Neurological Exam Neurological Exam: Alert, Awake Additional comments: oriented to 2-3 Assessment and Plan - Assessment and Plan (Free Text) Plan: 61 yo Obese HF with pmh/o htn, copd, chf, esrd b/p AKA s/p resp. faiure, s/p extubation 1. ESRD on hd 2. HTN, 3. COPD 4. Pneumonia 5. sputum c/s +ve for MDRO, k.pneumonia c/w hd 3 x a week TTS, stable hd tx c/w current anti htn meds c/w analgesics asneeded
[2016-11-30] MEDS: (Lantus) Insulin Glargine, Recombinant SC SCH (22:11)
[2016-12-01] MEDS: Albuterol-Ipratrop 3 mg / 0.5 (3 ml) UD INH SCH ×4 (01:16→20:05)
[2016-12-01] MEDS: Acetylcysteine 20% Inhal Soln (4ml) INH SCH ×4 (01:16→20:05)
[2016-12-01] MEDS: (Novolin R) Insulin Human Regular 100 units/ml vial SC SCH ×4 (06:31→19:26)
--- NOTE | 2016-12-01 06:49 | CP.PCM.PN ---
Subjective - Date & Time of Evaluation Date of Evaluation: 11/30/16 Time of Evaluation: 07:00 - Subjective Subjective: GENERAL SURGERY PROGRESS NOTE FOR DR. BORRERO Patient seen and examined at bedside. She has flexiseal tube in place, however, stool is leaking around it. Objective - Vital Signs/Intake and Output Vital Signs (last 24 hours): Temp Pulse Resp BP Pulse Ox 98.4 F 86 18 156/59 H 100 12/01/16 00:00 12/01/16 00:00 12/01/16 00:00 12/01/16 00:00 12/01/16 00:00 Intake and Output: 11/30/16 12/01/16 18:59 06:59 Intake Total 1345 Output Total 280 Balance 1065 - Medications Medications: Current Medications Acetaminophen (Tylenol 650mg/20.3ml Solution Ud) 650 mg PO Q6 PRN PRN Reason: Pain, Mild (1-3) Last Admin: 11/28/16 18:30 Dose: 650 mg Acetylcysteine (Acetylcysteine 20%) 4 ml INH RQ6 [facility] Last Admin: 12/01/16 01:16 Dose: Not Given Albuterol/Ipratropium (Duoneb 3 Mg/0.5 Mg (3 Ml) Ud) 3 ml INH RQ6 [facility] Last Admin: 12/01/16 01:16 Dose: Not Given Amlodipine Besylate (Norvasc) 5 mg PO DAILY [facility] Last Admin: 11/30/16 09:51 Dose: Not Given Ascorbic Acid (Vitamin C 250 Mg Tab) 250 mg PO DAILY [facility] Last Admin: 11/30/16 09:52 Dose: Not Given Aspirin (Aspirin Chewable) 81 mg NG DAILY [facility] Last Admin: 11/30/16 09:50 Dose: Not Given Benzonatate (Tessalon Perles) 100 mg PO TID PRN PRN Reason: Sore Throat Carvedilol (Coreg) 25 mg PO Q12 [facility] Last Admin: 11/30/16 22:12 Dose: 25 mg Dorzolamide HCl (Trusopt) 0 ml OU BID [facility] Last Admin: 11/30/16 17:20 Dose: 1 drop Gabapentin (Neurontin) 100 mg PO TID [facility] Last Admin: 11/30/16 17:22 Dose: 100 mg Hydralazine HCl (Apresoline) 10 mg IVP Q6H PRN PRN Reason: SBP above 180 mm Hg Last Admin: 11/26/16 23:54 Dose: 10 mg Hydrocortisone (Anusol-Hc) 0 gm [place] Q8H [facility] Last Admin: 11/30/16 15:47 Dose: 1 applic Tigecycline 50 mg/ Sodium (Chloride) 100 mls @ 100 mls/hr IVPB Q12H [facility] Last Admin: 12/01/16 06:33 Dose: 100 mls/hr Amikacin Sulfate 500 mg/ (Sodium Chloride) 102 mls @ 204 mls/hr IVPB TTS [facility] Last Admin: 11/29/16 17:33 Dose: 204 mls/hr Dextrose/Sodium Chloride (Dextrose 5%/0.45% Ns 1000 Ml) 1,000 mls @ 50 mls/hr IV .Q20H [facility] Last Admin: 11/30/16 15:46 Dose: 50 mls/hr Insulin Glargine (Lantus) 10 unit SC [facility] Last Admin: 11/30/16 22:11 Dose: 10 units Insulin Human Regular (Novolin R) 0 unit SC Q6H [facility] PRN Reason: Protocol Last Admin: 12/01/16 06:31 Dose: 2 unit Methylprednisolone (Solu-Medrol) 40 mg IVP DAILY [facility] Last Admin: 11/30/16 17:11 Dose: 40 mg Multivitamins (Hexavitamin) 1 tab PO DAILY [facility] Last Admin: 11/30/16 09:51 Dose: Not Given Nystatin (Nystop Topical Powder) 1 applic TOP BID [facility] Last Admin: 11/30/16 17:24 Dose: 1 applic Prednisone (Prednisone Tab) 40 mg PO DAILY [facility] Last Admin: 11/30/16 09:52 Dose: Not Given Rosuvastatin Calcium (Crestor) 10 mg PO HS [facility] Last Admin: 11/30/16 22:11 Dose: 10 mg Saccharomyces Boulardii (Florastor) 250 mg PO BID [facility] Last Admin: 11/30/16 17:22 Dose: 250 mg Zinc Sulfate (Zinc Sulfate 220 Mg Cap) 220 mg PO DAILY [facility] Last Admin: 11/30/16 09:52 Dose: Not Given - Labs Labs: 11/30/16 07:56 11/30/16 07:56 PT 11.5 SECONDS (9.7-12.2) 11/16/16 06:08 INR 1.0 11/16/16 06:08 APTT 31 SECONDS (21-34) 11/16/16 06:08 - Constitutional Appears: Non-toxic, No Acute Distress, Chronically Ill - Respiratory Exam Respiratory Exam: NORMAL BREATHING PATTERN. absent: Respiratory Distress - Cardiovascular Exam Cardiovascular Exam: +S1, +S2 - Extremities Exam Additional comments: Bilateral BKA - Neurological Exam Neurological Exam: Alert, Awake - Skin Additional comments: Erythema on bilateral buttocks and sacral area. Stage 1. No skin breakdown. Stool leaking around Flexseal. Area tender to touch Assessment and Plan - Assessment and Plan (Free Text) Assessment: 61yo F with sacral/buttock skin irritation - C diff negative - Afebrile - Leukocytosis of 20 - Keep patient's sacrum/perianal clean and dry - Wound care - Air mattress to relieve pressure sores - Q2 turns - Abx per ID - FU wound cx - Discussed plan with Dr. Suzanne Rosa PGY-3
[2016-12-01] MEDS: Hydrocortisone 2.5% Rectal Cream(30 gm) PR SCH ×2 (07:30→16:29)
--- NOTE | 2016-12-01 07:38 | CP.PCM.PN ---
Subjective - Date & Time of Evaluation Date of Evaluation: 12/01/16 Time of Evaluation: 07:36 Objective - Vital Signs/Intake and Output Vital Signs (last 24 hours): Temp Pulse Resp BP Pulse Ox 98.4 F 86 18 156/59 H 100 12/01/16 00:00 12/01/16 00:00 12/01/16 00:00 12/01/16 00:00 12/01/16 00:00 Intake and Output: 12/01/16 12/01/16 06:59 18:59 Intake Total 1345 Output Total 380 Balance 965 - Medications Medications: Current Medications Acetaminophen (Tylenol 650mg/20.3ml Solution Ud) 650 mg PO Q6 PRN PRN Reason: Pain, Mild (1-3) Last Admin: 11/28/16 18:30 Dose: 650 mg Acetylcysteine (Acetylcysteine 20%) 4 ml INH RQ6 [facility] Last Admin: 12/01/16 01:16 Dose: Not Given Albuterol/Ipratropium (Duoneb 3 Mg/0.5 Mg (3 Ml) Ud) 3 ml INH RQ6 [facility] Last Admin: 12/01/16 01:16 Dose: Not Given Amlodipine Besylate (Norvasc) 5 mg PO DAILY [facility] Last Admin: 11/30/16 09:51 Dose: Not Given Ascorbic Acid (Vitamin C 250 Mg Tab) 250 mg PO DAILY [facility] Last Admin: 11/30/16 09:52 Dose: Not Given Aspirin (Aspirin Chewable) 81 mg NG DAILY [facility] Last Admin: 11/30/16 09:50 Dose: Not Given Benzonatate (Tessalon Perles) 100 mg PO TID PRN PRN Reason: Sore Throat Carvedilol (Coreg) 25 mg PO Q12 [facility] Last Admin: 11/30/16 22:12 Dose: 25 mg Dorzolamide HCl (Trusopt) 0 ml OU BID [facility] Last Admin: 11/30/16 17:20 Dose: 1 drop Gabapentin (Neurontin) 100 mg PO TID [facility] Last Admin: 11/30/16 17:22 Dose: 100 mg Hydralazine HCl (Apresoline) 10 mg IVP Q6H PRN PRN Reason: SBP above 180 mm Hg Last Admin: 11/26/16 23:54 Dose: 10 mg Hydrocortisone (Anusol-Hc) 0 gm [place] Q8H [facility] Last Admin: 11/30/16 15:47 Dose: 1 applic Tigecycline 50 mg/ Sodium (Chloride) 100 mls @ 100 mls/hr IVPB Q12H [facility] Last Admin: 12/01/16 06:33 Dose: 100 mls/hr Amikacin Sulfate 500 mg/ (Sodium Chloride) 102 mls @ 204 mls/hr IVPB TTS [facility] Last Admin: 11/29/16 17:33 Dose: 204 mls/hr Dextrose/Sodium Chloride (Dextrose 5%/0.45% Ns 1000 Ml) 1,000 mls @ 50 mls/hr IV .Q20H [facility] Last Admin: 11/30/16 15:46 Dose: 50 mls/hr Insulin Glargine (Lantus) 10 unit SC HS [facility] Last Admin: 11/30/16 22:11 Dose: 10 units Insulin Human Regular (Novolin R) 0 unit SC Q6H [facility] PRN Reason: Protocol Last Admin: 12/01/16 06:31 Dose: 2 unit Methylprednisolone (Solu-Medrol) 40 mg IVP DAILY [facility] Last Admin: 11/30/16 17:11 Dose: 40 mg Multivitamins (Hexavitamin) 1 tab PO DAILY [facility] Last Admin: 11/30/16 09:51 Dose: Not Given Nystatin (Nystop Topical Powder) 1 applic TOP BID [facility] Last Admin: 11/30/16 17:24 Dose: 1 applic Prednisone (Prednisone Tab) 40 mg PO DAILY [facility] Last Admin: 11/30/16 09:52 Dose: Not Given Rosuvastatin Calcium (Crestor) 10 mg PO [facility] Last Admin: 11/30/16 22:11 Dose: 10 mg Saccharomyces Boulardii (Florastor) 250 mg PO BID [facility] Last Admin: 11/30/16 17:22 Dose: 250 mg Zinc Sulfate (Zinc Sulfate 220 Mg Cap) 220 mg PO DAILY [facility] Last Admin: 11/30/16 09:52 Dose: Not Given - Labs Labs: 11/30/16 07:56 11/30/16 07:56 PT 11.5 SECONDS (9.7-12.2) 11/16/16 06:08 INR 1.0 11/16/16 06:08 APTT 31 SECONDS (21-34) 11/16/16 06:08 - Constitutional Appears: No Acute Distress - Head Exam Head Exam: NORMAL INSPECTION, NORMOCEPHALIC - Eye Exam Eye Exam: EOMI, Normal appearance - ENT Exam ENT Exam: Mucous Membranes Moist - Neck Exam Neck Exam: Normal Inspection - Respiratory Exam Respiratory Exam: NORMAL BREATHING PATTERN. absent: Rhonchi, Wheezes - Cardiovascular Exam Cardiovascular Exam: REGULAR RHYTHM, +S1, +S2. absent: Murmur - GI/Abdominal Exam GI & Abdominal Exam: Soft, Normal Bowel Sounds. absent: Tenderness - Extremities Exam Extremities Exam: absent: Normal Inspection (B/L AKA) - Neurological Exam Neurological Exam: Alert, Awake. absent: Oriented x3 - Psychiatric Exam Psychiatric exam: Normal Affect, Normal Mood - Skin Skin Exam: Warm. absent: Intact, Normal Color Additional comments: Erythematous Sacral ulcer stage 1 forming. Assessment and Plan (1) Acute respiratory failure Status: Acute (2) COPD (chronic obstructive pulmonary disease) Status: Chronic (3) Hyperlipidemia Status: Chronic (4) Congestive heart failure Status: Chronic (5) Thrombocytopenia Status: Acute (6) ESRD (end stage renal disease) on dialysis Status: Chronic (7) Diabetes mellitus Status: Chronic (8) HTN (hypertension) Status: Chronic (9) Diarrhea Status: Acute (10) Malnutrition Status: Acute (11) Leukocytosis Status: Acute (12) Ulcer of sacral region, stage 1 Status: Acute (13) Abdominal pain Status: Acute (14) Prophylactic measure Status: Acute
[2016-12-01 08:12] LABS: BASO % 0.3 % (0.0-2.0); HEMOGLOBIN 12.3 g/dL (11.0-16.0); LYMPH # 0.4 K/uL (1.0-4.3); MEAN CELL VOLUME 88.5 fL (81.0-99.0); MEAN CORPUSCULAR HGB CONC 31.7 g/dL (33.0-37.0); MEAN PLATELET VOLUME 12.1 fL (7.2-11.7); MONO # 0.6 K/uL (0.0-0.8); NEUT # 13.3 K/uL (1.8-7.0); NEUT % 92.7 % (50.0-75.0); PLATELET COUNT 79 K/uL (130-400); RBC 4.39 Mil/uL (3.80-5.20); WHITE BLOOD COUNT 14.3 K/uL (4.8-10.8)
[2016-12-01 08:27] LABS: ALBUMIN 1.9 g/dL (3.5-5.0)
[2016-12-01 08:30] LABS: ALB/GLOB RATIO 0.8 (1.0-2.1)
[2016-12-01 08:31] LABS: CALCIUM 6.7 mg/dl (8.6-10.4)
--- NOTE | 2016-12-01 08:41 | RAD ---
HISTORY: NG tube placement COMPARISON: 11/29/2016 FINDINGS: LUNGS: Right central venous catheter tip extending into the right atrium. NG tube extending into the stomach. Left PICC line with tip extending to the cavoatrial junction. Mild venous congestion. Patchy bibasilar airspace opacities with small left pleural effusion. Punctate nodular density at the lateral aspect of the right upper to mid lung zone which may represent granuloma and or small nodule. PLEURA: As above. CARDIOVASCULAR: Cardiomegaly. OSSEOUS STRUCTURES: Degenerative changes in the spine and shoulders. VISUALIZED UPPER ABDOMEN: Grossly preserved. OTHER FINDINGS: None. IMPRESSION: Right central venous catheter tip extending into the right atrium. NG tube extending into the stomach. Left PICC line with tip extending to the cavoatrial junction. Mild venous congestion. Patchy bibasilar airspace opacities with small left pleural effusion. Punctate nodular density at the lateral aspect of the right upper to mid lung zone which may represent granuloma and or small nodule.
[2016-12-01 08:49] VITALS: RESP 20
[2016-12-01 09:02] LABS: LYMPHOCYTE 2 % (20-40); MONOCYTE 3 % (0-10); NEUTROPHIL 95 % (50-75); PLATELET ESTIMATE DECREASED (NORMAL); TOTAL CELLS COUNTED 100
[2016-12-01 09:03] LABS: ANISOCYTOSIS SLIGHT; POIKILOCYTOSIS SLIGHT; TEARDROP CELLS SLIGHT
[2016-12-01] MEDS: Multiple Vitamins Tab PO SCH (10:25)
[2016-12-01] MEDS: MethylPREDNISolone 40 mg Vial IVP SCH (10:27)
[2016-12-01] MEDS: Dorzolamide 2% Opht Sol 10ml OU SCH ×2 (10:50→19:30)
[2016-12-01] MEDS: Dextrose 5%/0.45% NS 1,000 ML IV SCH (11:14)
--- NOTE | 2016-12-01 11:20 | CP.PCM.PN ---
Subjective - Date & Time of Evaluation Date of Evaluation: 12/01/16 Time of Evaluation: 07:00 - Subjective Subjective: General sx progress note for Dr. Rogelio Salas, PGY-1 Pt S & E at bedside. Pt resting comfortably in bed, no currently complaints. Objective - Vital Signs/Intake and Output Vital Signs (last 24 hours): Temp Pulse Resp BP Pulse Ox 97.4 F L 80 20 165/80 H 96 12/01/16 07:00 12/01/16 07:00 12/01/16 07:00 12/01/16 10:25 12/01/16 07:00 Intake and Output: 12/01/16 12/01/16 06:59 18:59 Intake Total 1345 Output Total 380 Balance 965 - Medications Medications: Current Medications Acetaminophen (Tylenol 650mg/20.3ml Solution Ud) 650 mg PO Q6 PRN PRN Reason: Pain, Mild (1-3) Last Admin: 11/28/16 18:30 Dose: 650 mg Acetylcysteine (Acetylcysteine 20%) 4 ml INH RQ6 [facility] Last Admin: 12/01/16 01:16 Dose: Not Given Albuterol/Ipratropium (Duoneb 3 Mg/0.5 Mg (3 Ml) Ud) 3 ml INH RQ6 [facility] Last Admin: 12/01/16 01:16 Dose: Not Given Amlodipine Besylate (Norvasc) 5 mg PO DAILY [facility] Last Admin: 12/01/16 10:25 Dose: 5 mg Ascorbic Acid (Vitamin C 250 Mg Tab) 250 mg PO DAILY [facility] Last Admin: 12/01/16 10:25 Dose: 250 mg Aspirin (Aspirin Chewable) 81 mg NG DAILY [facility] Last Admin: 12/01/16 10:24 Dose: 81 mg Benzonatate (Tessalon Perles) 100 mg PO TID PRN PRN Reason: Sore Throat Carvedilol (Coreg) 25 mg PO Q12 [facility] Last Admin: 12/01/16 10:25 Dose: 25 mg Dorzolamide HCl (Trusopt) 0 ml OU BID [facility] Last Admin: 12/01/16 10:50 Dose: 1 drop Gabapentin (Neurontin) 100 mg PO TID [facility] Last Admin: 12/01/16 10:25 Dose: 100 mg Hydralazine HCl (Apresoline) 10 mg IVP Q6H PRN PRN Reason: SBP above 180 mm Hg Last Admin: 11/26/16 23:54 Dose: 10 mg Hydrocortisone (Anusol-Hc) 0 gm [place] Q8H [facility] Last Admin: 11/30/16 23:30 Dose: Not Given Tigecycline 50 mg/ Sodium (Chloride) 100 mls @ 100 mls/hr IVPB Q12H [facility] Last Admin: 12/01/16 06:33 Dose: 100 mls/hr Amikacin Sulfate 500 mg/ (Sodium Chloride) 102 mls @ 204 mls/hr IVPB TTS [facility] Last Admin: 11/29/16 17:33 Dose: 204 mls/hr Dextrose/Sodium Chloride (Dextrose 5%/0.45% Ns 1000 Ml) 1,000 mls @ 50 mls/hr IV .Q20H [facility] Last Admin: 12/01/16 11:14 Dose: Not Given Insulin Glargine (Lantus) 10 unit SC HS [facility] Last Admin: 11/30/16 22:11 Dose: 10 units Insulin Human Regular (Novolin R) 0 unit SC Q6H [facility] PRN Reason: Protocol Last Admin: 12/01/16 06:31 Dose: 2 unit Methylprednisolone (Solu-Medrol) 40 mg IVP DAILY [facility] Last Admin: 12/01/16 10:27 Dose: 40 mg Multivitamins (Hexavitamin) 1 tab PO DAILY [facility] Last Admin: 12/01/16 10:25 Dose: 1 tab Nystatin (Nystop Topical Powder) 1 applic TOP BID [facility] Last Admin: 12/01/16 10:49 Dose: 1 applic Prednisone (Prednisone Tab) 40 mg PO DAILY [facility] Last Admin: 12/01/16 11:15 Dose: Not Given Rosuvastatin Calcium (Crestor) 10 mg PO HS [facility] Last Admin: 11/30/16 22:11 Dose: 10 mg Saccharomyces Boulardii (Florastor) 250 mg PO BID [facility] Last Admin: 11/30/16 17:22 Dose: 250 mg Zinc Sulfate (Zinc Sulfate 220 Mg Cap) 220 mg PO DAILY [facility] Last Admin: 12/01/16 10:25 Dose: 220 mg - Labs Labs: 12/01/16 07:23 12/01/16 07:23 PT 11.5 SECONDS (9.7-12.2) 06/25/17 06:08 INR 1.0 11/16/16 06:08 APTT 31 SECONDS (21-34) 11/16/16 06:08 - Constitutional Appears: Non-toxic, No Acute Distress - Head Exam Head Exam: ATRAUMATIC, NORMAL INSPECTION, NORMOCEPHALIC - Eye Exam Eye Exam: EOMI, Normal appearance - ENT Exam ENT Exam: Mucous Membranes Moist, Normal Exam - Respiratory Exam Respiratory Exam: Clear to Ausculation Bilateral, NORMAL BREATHING PATTERN - Cardiovascular Exam Cardiovascular Exam: REGULAR RHYTHM, +S1, +S2 - GI/Abdominal Exam GI & Abdominal Exam: Soft, Normal Bowel Sounds. absent: Tenderness - Neurological Exam Neurological Exam: Alert, Awake - Skin Skin Exam: Intact, Warm. absent: Normal Color (sacral area with reddening of skin) Assessment and Plan - Assessment and Plan (Free Text) Plan: 61yo F with sacral/buttock skin irritation, stable keep sacral area/perineal area clean/dry Turn pt Q2H Air mattress Optifoam to sacrum Medihoney as needed Wound care as per nursing Please re-consult as needed PAULINE attending Maritza, PGY-1
[2016-12-01] MEDS: Saccharomyces Boulardi 250 mg Cap PO SCH ×2 (12:53→19:28)
[2016-12-01 16:29] VITALS: BP 182/76; PULSE 81; TEMP 98.1; O2SAT 95
--- NOTE | 2016-12-01 16:59 | CP.PCM.DIS ---
<Alejandra BuckleySalud - Last Filed: 12/01/16 16:56> Provider - Provider Date of Admission: 11/14/16 21:45 Attending physician: Felipe Abdi MD Time Spent in preparation of Discharge (in minutes): 45 Diagnosis - Discharge Diagnosis (1) Acute respiratory failure Status: Resolved Comment: Please see hospital summary for more details. (2) COPD (chronic obstructive pulmonary disease) Status: Chronic Comment: Please see hospital summary for more details. (3) Hyperlipidemia Status: Chronic Comment: Please see hospital summary for more details. (4) Congestive heart failure Status: Chronic Comment: Please see hospital summary for more details. (5) Thrombocytopenia Status: Acute Comment: Please see hospital summary for more details. (6) ESRD (end stage renal disease) on dialysis Status: Chronic Comment: Please see hospital summary for more details. (7) Diabetes mellitus Status: Chronic Comment: Please see hospital summary for more details. (8) HTN (hypertension) Status: Chronic Comment: Please see hospital summary for more details. (9) Diarrhea Status: Resolved Comment: Please see hospital summary for more details. (10) Malnutrition Status: Resolved Comment: Please see hospital summary for more details. (11) Leukocytosis Status: Acute Comment: Please see hospital summary for more details. (12) Ulcer of sacral region, stage 1 Status: Acute Comment: Please see hospital summary for more details. (13) Abdominal pain Status: Resolved Comment: Please see hospital summary for more details. Hospital Course - Lab Results Lab Results: Micro Results 11/28/16 17:30 Stool Stool Culture - Final NO SALMONELLA, SHIGELLA OR CAMPYLOBACTER ISOLATED. 11/30/16 Unknown Sacral Gram Stain - Final 11/30/16 Unknown Sacral Wound Culture - Preliminary Gram Negative Abdullahi 11/28/16 17:30 Rectum Ova and Parasite Concentrate Exam - Final 11/21/16 09:07 Other: Please Indicate Mycobacterial Culture - Preliminary 11/26/16 14:30 Urine,Allred Urine Culture - Final Klebsiella Pneumoniae Ssp Pneu 11/24/16 14:00 Naris MRSA Culture - Final MRSA NOT DETECTED 11/21/16 18:30 Bronchial Washings Bronchial Culture - Final Klebsiella Pneumoniae Ssp Pneu 11/20/16 Unknown Stool Stool Culture - Final NO SALMONELLA, SHIGELLA OR CAMPYLOBACTER ISOLATED. 11/20/16 Unknown Rectum Ova and Parasite Concentrate Exam - Final 11/16/16 08:28 Blood-Venous Blood Culture - Final NO GROWTH AFTER 5 DAYS 11/16/16 08:28 Blood-Venous Gram Stain - Final TEST NOT PERFORMED 11/18/16 14:00 Trachasp Gram Stain - Final 11/18/16 14:00 Trachasp Sputum Culture - Final Klebsiella Pneumoniae Ssp Pneu 11/16/16 08:28 Trachasp Gram Stain - Final 11/16/16 08:28 Trachasp Sputum Culture - Final Klebsiella Pneumoniae 11/16/16 Unknown Stool Stool Culture - Final NO SALMONELLA, SHIGELLA OR CAMPYLOBACTER ISOLATED. 11/16/16 Unknown Stool Ova and Parasite Concentrate Exam - Final 11/15/16 Unknown Naris MRSA Culture (Admit) - Final MRSA NOT DETECTED Most Recent Lab Values WBC 14.3 K/uL (4.8-10.8) H 12/01/16 07:23 RBC 4.39 Mil/uL (3.80-5.20) 12/01/16 07:23 Hgb 12.3 g/dL (11.0-16.0) 12/01/16 07:23 Hct 38.9 % (34.0-47.0) 12/01/16 07:23 MCV 88.5 fL (81.0-99.0) 12/01/16 07:23 MCH 28.0 pg (27.0-31.0) 12/01/16 07:23 MCHC 31.7 g/dL (33.0-37.0) L 12/01/16 07:23 RDW 18.0 % (11.5-14.5) H 12/01/16 07:23 Plt Count 79 K/uL (130-400) L 12/01/16 07:23 MPV 12.1 fL (7.2-11.7) H 12/01/16 07:23 Neut % (Auto) 92.7 % (50.0-75.0) H 12/01/16 07:23 Lymph % (Auto) 3.0 % (20.0-40.0) L 12/01/16 07:23 Teller % (Auto) 4.0 % (0.0-10.0) 12/01/16 07:23 Eos % (Auto) 0.0 % (0.0-4.0) 12/01/16 07:23 Baso % (Auto) 0.3 % (0.0-2.0) 12/01/16 07:23 Neut # 13.3 K/uL (1.8-7.0) H 12/01/16 07:23 Lymph # 0.4 K/uL (1.0-4.3) L 12/01/16 07:23 Teller # 0.6 K/uL (0.0-0.8) 12/01/16 07:23 Eos # 0.0 K/uL (0.0-0.7) 12/01/16 07:23 Baso # 0.0 K/uL (0.0-0.2) 12/01/16 07:23 Neutrophils % (Manual) 95 % (50-75) H 12/01/16 07:23 Band Neutrophils % 2 % (0-2) 11/21/16 06:22 Lymphocytes % (Manual) 2 % (20-40) L 12/01/16 07:23 Monocytes % (Manual) 3 % (0-10) 12/01/16 07:23 Basophils % (Manual) 1 % (0-2) 11/14/16 19:32 Platelet Estimate Decreased (NORMAL) L 12/01/16 07:23 Large Platelets Present 11/21/16 06:22 RBC Morphology Normal 11/26/16 08:00 Polychromasia Slight 11/15/16 06:17 Hypochromasia (manual) Slight 11/30/16 07:56 Poikilocytosis (manual Slight 12/01/16 07:23 Anisocytosis (manual) Slight 12/01/16 07:23 Target Cells Slight 11/15/16 06:17 Tear Drop Cells Slight 12/01/16 07:23 Ovalocytes Slight 11/30/16 07:56 [place] Cells Slight 11/24/16 10:33 Schistocytes Slight 11/30/16 07:56 PT 11.5 SECONDS (9.7-12.2) 11/16/16 06:08 INR 1.0 11/16/16 06:08 APTT 31 SECONDS (21-34) 11/16/16 06:08 Hep-Reyna Thrombocytopen Positive (Negative) H 11/19/16 11:22 Puncture Site Rb 11/26/16 15:05 pCO2 38 mm/Hg (35-45) 11/26/16 15:05 pO2 75 mm/Hg (80-100) L 11/26/16 15:05 HCO3 27.3 mmol/L (21-28) 11/26/16 15:05 ABG pH 7.46 (7.35-7.45) H 11/26/16 15:05 ABG Total CO2 28.2 mmol/L (22-28) H 11/26/16 15:05 ABG O2 Saturation 97.5 % (95-98) 11/26/16 15:05 ABG Base Excess 3.1 mmol/L (-2.0-3.0) H 11/26/16 15:05 ABG Hemoglobin 11.4 g/dL (11.7-17.4) L 11/22/16 03:25 ABG Carboxyhemoglobin 1.6 % (0.5-1.5) H 11/22/16 03:25 POC ABG HHb (Measured) 0.7 % (0.0-5.0) 11/22/16 03:25 ABG Methemoglobin 1.3 % (0.0-3.0) 11/22/16 03:25 Rg Test A 11/26/16 15:05 ABG Potassium 3.9 mmol/L (3.6-5.2) 11/26/16 15:05 VBG pH 7.04 (7.32-7.43) L* 11/14/16 21:00 VBG pCO2 124 mmHg (40-60) H* 11/14/16 21:00 VBG HCO3 23.8 mmol/L 11/14/16 21:00 VBG Total CO2 37.3 mmol/L (22-28) H 11/14/16 21:00 VBG O2 Sat (Calc) 90.8 % (40-65) H 11/14/16 21:00 VBG Base Excess -0.9 mmol/L (0.0-2.0) L 11/14/16 21:00 VBG Potassium 3.4 mmol/L (3.6-5.2) L 11/14/16 21:00 A-a O2 Difference 155.0 mm/Hg 11/22/16 03:25 Respiratory Index 1.1 11/22/16 03:25 Hgb O2 Saturation 96.3 % (95.0-98.0) 11/22/16 03:25 Sodium 140.0 mmol/l (132-148) 11/26/16 15:05 Chloride 109.0 mmol/L (98-107) H 11/26/16 15:05 Glucose 103 mg/dl (65-105) 11/26/16 15:05 Lactate 0.6 mmol/L (0.7-2.1) L 11/26/16 15:05 Mechanical Rate 14 11/18/16 04:15 FiO2 50.0 % 11/22/16 03:25 Tidal Volume 450 11/18/16 04:15 PEEP 5 11/18/16 04:15 Crit Value Called To Dr graff 11/14/16 21:00 Crit Value Called By [facility] 11/14/16 21:00 Crit Value Read Back Y 11/14/16 21:00 Blood Gas Notified Time 210711/14/16 21:00 Sodium 134 mmol/L (132-148) 12/01/16 07:23 Potassium 3.5 mmol/L (3.6-5.2) L 12/01/16 07:23 Chloride 102 mmol/L (98-107) 12/01/16 07:23 Carbon Dioxide 24 mmol/L (22-30) 12/01/16 07:23 Anion Gap 12 (10-20) 12/01/16 07:23 BUN 69 mg/dL (7-17) H 12/01/16 07:23 Creatinine 2.5 MG/DL (0.7-1.2) H 12/01/16 07:23 Est GFR ( Amer) 24 12/01/16 07:23 Est GFR (Non-Af Amer) 19 12/01/16 07:23 POC Glucose (mg/dL) 169 mg/dL (65-110) H 12/01/16 12:20 Random Glucose 258 mg/dL (65-105) H 12/01/16 07:23 Hemoglobin A1c 5.0 % (4.2-6.5) 11/16/16 06:08 Calcium 6.7 mg/dl (8.6-10.4) L 12/01/16 07:23 Phosphorus 6.0 mg/dL (2.5-4.5) H 12/01/16 07:23 Magnesium 2.0 mg/dL (1.6-2.3) 12/01/16 07:23 Total Bilirubin 0.6 mg/dL (0.2-1.3) 12/01/16 07:23 AST 35 U/L (14-36) 12/01/16 07:23 ALT 49 U/L (9-52) 12/01/16 07:23 Alkaline Phosphatase 129 U/L (38-126) H D 12/01/16 07:23 Total Protein 4.3 g/dL (6.3-8.3) L 12/01/16 07:23 Albumin 1.9 g/dL (3.5-5.0) L 12/01/16 07:23 Globulin 2.5 gm/dL (2.2-3.9) 12/01/16 07:23 Albumin/Globulin Ratio 0.8 (1.0-2.1) L 12/01/16 07:23 Triglycerides 159 mg/dL (0-149) H D 11/16/16 06:08 Cholesterol 138 mg/dL (0-199) 11/16/16 06:08 LDL Cholesterol Direct 62 mg/dL (0-129) 11/16/16 06:08 HDL Cholesterol 50 mg/dL (30-70) 11/16/16 06:08 Procalcitonin 0.18 NG/ML (0.19-0.49) L 11/28/16 09:52 Arterial Blood Potassium 3.9 mmol/L (3.6-5.2) 11/26/16 15:05 Venous Blood Potassium 3.4 mmol/L (3.6-5.2) L 11/14/16 21:00 Urine Color Yellow (YELLOW) 11/14/16 21:19 Urine Clarity Turbid (Clear) 11/14/16 21:19 Urine pH 6.0 (5.0-8.0) 11/14/16 21:19 Ur Specific [place] 1.027 (1.003-1.030) 11/14/16 21:19 Urine Protein 2+ mg/dL (NEGATIVE) H 11/14/16 21:19 Urine Glucose (UA) 3+ mg/dL (Normal) H 11/14/16 21:19 Urine Ketones 1+ mg/dL (NEGATIVE) H 11/14/16 21:19 Urine Blood 1+ (NEGATIVE) H 11/14/16 21:19 Urine Nitrate Negative (NEGATIVE) 11/14/16 21:19 Urine Bilirubin Negative (NEGATIVE) 11/14/16 21:19 Urine Urobilinogen Normal mg/dL (0.2-1.0) 11/14/16 21:19 Ur Leukocyte Esterase 2+ Rustam/uL (Negative) H 11/14/16 21:19 Urine WBC (Auto) 686 /hpf (0-5) H 11/14/16 21:19 Urine RBC (Auto) 84 /hpf (0-3) H 11/14/16 21:19 Ur Squamous Epith Cells 25 /hpf (0-5) H 11/14/16 21:19 Stool Leukocytes, Qual Negative (NEGATIVE) 11/20/16 Unknown LEROY UFH Low Dose 0.1 0 % Release 11/19/16 11:22 LEROY UFH Low Dose 0.5 0 % Release 11/19/16 11:22 LEROY UFH High Dose 100 0 % Release 11/19/16 11:22 C. difficile Ag & Toxin Negative (NEGATIVE) 11/30/16 06:00 - Hospital Course Hospital Course: Chief Complaint: "Altered Mental Status" 61 year old female who presents to the emergency room for altered mental status. Unable to get a good history because patient was intubated and not alert. As per Emergency Room nurse the patient was admitted for altered mental status from the retirement. Per the EMS they stated the patient is normally alert and oriented to person, time and place at baseline. PMD: as per retirement records Dr. 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 In the ED, patient was unresponsive. Patient's EKG showed sinus rhythm and nonspecific changes. Patient was intubated and admitted to the ICU. Chest xray showed possible small left pleural effusion. Head CT showed no change from her previous CT in 06/2016, small vessel ischemia changes in white matter, 3mm lacunar infarct in right basal ganglia (no change), and bilateral mastoid air cell opacification (no change from previous). Patient acute respiratory failure was managed in the ICU with mechanical ventilation, medications, and NG tube for feeding and medication administration. Patients hypertension, diabetes mellitus, and hyperlipidemia were managed with medications. Nephrology was consulted due to patient's chronic kidney disease, end stage renal disease, and dialysis. Pulmonology was consulted for managing patient's COPD. Patient developed a fever and was found to have multi-resistant Klebsiella Pneumoniae in sputum culture, but negative blood cultures. Infectious disease was consulted to manage multi-resistant Klebsiella pneumonia. Patient was started on antibiotics for pneumonia. Patient started having diarrhea and was treated with probiotics. C.difficile, stool ova and parasites, and stool cultures were negative. Patient was extubated. Patient became thrombocytopenic and heparin-induced thrombocytopenic antibody was ordered and resulted in a positive result. Heparin was discontinued. Patient continued her dialysis on Tuesdays, , and Saturdays. Patient developed a collapsed lung, received a bronchoscopy and bronchial lavage with re-expansion of the lung. Patient developped bladder discomfort and ultrasound showed no acute findings. Urine cultures results were positive for Klebsiella pneumoniae species and patient was started on antibiotics. Patient then developed perianal pain that developed into a sacral ulcer. Wound culture of the sacral ulcer showed gram negative rods. Patient was started on topical steroids, continued to be regularly turned and received wound care. Patient is stable for discharge to [facility] as per Dr. Abdi. Patient should continue to receive all medications listed in discharge medication list. Patient should return the ED if symptoms reoccur. Discharge Exam - Head Exam Head Exam: ATRAUMATIC, NORMAL INSPECTION, NORMOCEPHALIC - Eye Exam Eye Exam: Normal appearance - ENT Exam ENT Exam: Mucous Membranes Moist - Neck Exam Neck exam: Normal Inspection - Respiratory Exam Respiratory Exam: Clear to PA & Lateral, NORMAL BREATHING PATTERN, UNREMARKABLE - Cardiovascular Exam Cardiovascular Exam: REGULAR RHYTHM, +S1, +S2. absent: Gallop, Rubs - GI/Abdominal Exam GI & Abdominal Exam: Normal Bowel Sounds, Soft, Unremarkable. absent: Tenderness - Extremities Exam Additional comments: B/L AKA - Neurological Exam Neurological exam: Alert Additional comments: Oriented to person, but not to place or time. - Psychiatric Exam Psychiatric exam: Normal Affect, Normal Mood - Skin Skin Exam: Normal Color, Warm Additional comments: Sacral ulcer- Stage 2 Discharge Plan - Follow Up Plan Condition: GUARDED [facility]position[facility] Instructions: Acute Respiratory Distress Syndrome (DC), Dialysis Diet (DC), Peripherally Inserted Central Catheters and Midline Catheters (DC), Nasogastric Tube (DC), Chronic Respiratory Failure (DC) Referrals: Mark Sheikh MD [Staff Provider] - (for ICU admission) <Felipe Abdi - Last Filed: 12/01/16 18:34> Provider - Provider Date of Admission: 11/14/16 21:45 Attending physician: Felipe Abdi MD Hospital Course - Lab Results Lab Results: Micro Results 11/28/16 17:30 Stool Stool Culture - Final NO SALMONELLA, SHIGELLA OR CAMPYLOBACTER ISOLATED. 11/30/16 Unknown Sacral Gram Stain - Final 11/30/16 Unknown Sacral Wound Culture - Preliminary Gram Negative Abdullahi 11/28/16 17:30 Rectum Ova and Parasite Concentrate Exam - Final 11/21/16 09:07 Other: Please Indicate Mycobacterial Culture - Preliminary 11/26/16 14:30 Urine,Allred Urine Culture - Final Klebsiella Pneumoniae Ssp Pneu 11/24/16 14:00 Naris MRSA Culture - Final MRSA NOT DETECTED 11/21/16 18:30 Bronchial Washings Bronchial Culture - Final Klebsiella Pneumoniae Ssp Pneu 11/20/16 Unknown Stool Stool Culture - Final NO SALMONELLA, SHIGELLA OR CAMPYLOBACTER ISOLATED. 11/20/16 Unknown Rectum Ova and Parasite Concentrate Exam - Final 11/16/16 08:28 Blood-Venous Blood Culture - Final NO GROWTH AFTER 5 DAYS 11/16/16 08:28 Blood-Venous Gram Stain - Final TEST NOT PERFORMED 11/18/16 14:00 Trachasp Gram Stain - Final 11/18/16 14:00 Trachasp Sputum Culture - Final Klebsiella Pneumoniae Ssp Pneu 11/16/16 08:28 Trachasp Gram Stain - Final 11/16/16 08:28 Trachasp Sputum Culture - Final Klebsiella Pneumoniae 11/16/16 Unknown Stool Stool Culture - Final NO SALMONELLA, SHIGELLA OR CAMPYLOBACTER ISOLATED. 11/16/16 Unknown Stool Ova and Parasite Concentrate Exam - Final 11/15/16 Unknown Naris MRSA Culture (Admit) - Final MRSA NOT DETECTED Most Recent Lab Values WBC 14.3 K/uL (4.8-10.8) H 12/01/16 07:23 RBC 4.39 Mil/uL (3.80-5.20) 12/01/16 07:23 Hgb 12.3 g/dL (11.0-16.0) 12/01/16 07:23 Hct 38.9 % (34.0-47.0) 12/01/16 07:23 MCV 88.5 fL (81.0-99.0) 12/01/16 07:23 MCH 28.0 pg (27.0-31.0) 12/01/16 07: MCHC 31.7 g/dL (33.0-37.0) L 12/01/16 07:23 RDW 18.0 % (11.5-14.5) H 12/01/16 07:23 Plt Count 79 K/uL (130-400) L 12/01/16 07:23 MPV 12.1 fL (7.2-11.7) H 12/01/16 07:23 Neut % (Auto) 92.7 % (50.0-75.0) H 12/01/16 07:23 Lymph % (Auto) 3.0 % (20.0-40.0) L 12/01/16 07:23 Teller % (Auto) 4.0 % (0.0-10.0) 12/01/16 07:23 Eos % (Auto) 0.0 % (0.0-4.0) 12/01/16 07:23 Baso % (Auto) 0.3 % (0.0-2.0) 12/01/16 07:23 Neut # 13.3 K/uL (1.8-7.0) H 12/01/16 07:23 Lymph # 0.4 K/uL (1.0-4.3) L 12/01/16 07:23 Teller # 0.6 K/uL (0.0-0.8) 12/01/16 07:23 Eos # 0.0 K/uL (0.0-0.7) 12/01/16 07:23 Baso # 0.0 K/uL (0.0-0.2) 12/01/16 07:23 Neutrophils % (Manual) 95 % (50-75) H 12/01/16 07:23 Band Neutrophils % 2 % (0-2) 11/21/16 06:22 Lymphocytes % (Manual) 2 % (20-40) L 12/01/16 07:23 Monocytes % (Manual) 3 % (0-10) 12/01/16 07:23 Basophils % (Manual) 1 % (0-2) 11/14/16 19:32 Platelet Estimate Decreased (NORMAL) L 12/01/16 07:23 Large Platelets Present 11/21/16 06:22 RBC Morphology Normal 11/26/16 08:00 Polychromasia Slight 11/15/16 06:17 Hypochromasia (manual) Slight 11/30/16 07:56 Poikilocytosis (manual Slight 12/01/16 07:23 Anisocytosis (manual) Slight 12/01/16 07:23 Target Cells Slight 11/15/16 06:17 Tear Drop Cells Slight 12/01/16 07:23 Ovalocytes Slight 11/30/16 07:56 Brenda Cells Slight 11/24/16 10:33 Schistocytes Slight 11/30/16 07:56 PT 11.5 SECONDS (9.7-12.2) 11/16/16 06:08 INR 1.0 11/16/16 06:08 APTT 31 SECONDS (21-34) 11/16/16 06:08 Hep-Reyna Thrombocytopen Positive (Negative) H 11/19/16 11:22 Puncture Site Rb 11/26/16 15:05 pCO2 38 mm/Hg (35-45) 11/26/16 15:05 pO2 75 mm/Hg (80-100) L 11/26/16 15:05 HCO3 27.3 mmol/L (21-28) 11/26/16 15:05 ABG pH 7.46 (7.35-7.45) H 11/26/16 15:05 ABG Total CO2 28.2 mmol/L (22-28) H 11/26/16 15:05 ABG O2 Saturation 97.5 % (95-98) 11/26/16 15:05 ABG Base Excess 3.1 mmol/L (-2.0-3.0) H 11/26/16 15:05 ABG Hemoglobin 11.4 g/dL (11.7-17.4) L 11/22/16 03:25 ABG Carboxyhemoglobin 1.6 % (0.5-1.5) H 11/22/16 03:25 POC ABG HHb (Measured) 0.7 % (0.0-5.0) 11/22/16 03:25 ABG Methemoglobin 1.3 % (0.0-3.0) 11/22/16 03:25 Rg Test A 11/26/16 15:05 ABG Potassium 3.9 mmol/L (3.6-5.2) 11/26/16 15:05 VBG pH 7.04 (7.32-7.43) L* 11/14/16 21:00 VBG pCO2 124 mmHg (40-60) H* 11/14/16 21:00 VBG HCO3 23.8 mmol/L 11/14/16 21:00 VBG Total CO2 37.3 mmol/L (22-28) H 11/14/16 21:00 VBG O2 Sat (Calc) 90.8 % (40-65) H 11/14/16 21:00 VBG Base Excess -0.9 mmol/L (0.0-2.0) L 11/14/16 21:00 VBG Potassium 3.4 mmol/L (3.6-5.2) L 11/14/16 21:00 A-a O2 Difference 155.0 mm/Hg 11/22/16 03:25 Respiratory Index 1.1 11/22/16 03:25 Hgb O2 Saturation 96.3 % (95.0-98.0) 11/22/16 03:25 Sodium 140.0 mmol/l (132-148) 11/26/16 15:05 Chloride 109.0 mmol/L (98-107) H 11/26/16 15:05 Glucose 103 mg/dl (65-105) 11/26/16 15:05 Lactate 0.6 mmol/L (0.7-2.1) L 11/26/16 15:05 Mechanical Rate 14 11/18/16 04:15 FiO2 50.0 % 11/22/16 03:25 Tidal Volume 450 11/18/16 04:15 PEEP 5 11/18/16 04:15 Crit Value Called To Dr graff 11/14/16 21:00 Crit Value Called By Kristian lynn 11/14/16 21:00 Crit Value Read Back Y 11/14/16 21:00 Blood Gas Notified Time 210711/14/16 21:00 Sodium 134 mmol/L (132-148) 12/01/16 07:23 Potassium 3.5 mmol/L (3.6-5.2) L 12/01/16 07:23 Chloride 102 mmol/L (98-107) 12/01/16 07:23 Carbon Dioxide 24 mmol/L (22-30) 12/01/16 07:23 Anion Gap 12 (10-20) 12/01/16 07:23 BUN 69 mg/dL (7-17) H 12/01/16 07:23 Creatinine 2.5 MG/DL (0.7-1.2) H 12/01/16 07:23 Est GFR ( Amer) 24 12/01/16 07:23 Est GFR (Non-Af Amer) 19 12/01/16 07:23 POC Glucose (mg/dL) 226 mg/dL (65-110) H 12/01/16 17:11 Random Glucose 258 mg/dL (65-105) H 12/01/16 07:23 Hemoglobin A1c 5.0 % (4.2-6.5) 11/16/16 06:08 Calcium 6.7 mg/dl (8.6-10.4) L 12/01/16 07:23 Phosphorus 6.0 mg/dL (2.5-4.5) H 12/01/16 07:23 Magnesium 2.0 mg/dL (1.6-2.3) 12/01/16 07:23 Total Bilirubin 0.6 mg/dL (0.2-1.3) 12/01/16 07:23 AST 35 U/L (14-36) 12/01/16 07:23 ALT 49 U/L (9-52) 12/01/16 07:23 Alkaline Phosphatase 129 U/L (38-126) H D 12/01/16 07:23 Total Protein 4.3 g/dL (6.3-8.3) L 12/01/16 07:23 Albumin 1.9 g/dL (3.5-5.0) L 12/01/16 07:23 Globulin 2.5 gm/dL (2.2-3.9) 12/01/16 07:23 Albumin/Globulin Ratio 0.8 (1.0-2.1) L 12/01/16 07:23 Triglycerides 159 mg/dL (0-149) H D 11/16/16 06:08 Cholesterol 138 mg/dL (0-199) 11/16/16 06:08 LDL Cholesterol Direct 62 mg/dL (0-129) 11/16/16 06:08 HDL Cholesterol 50 mg/dL (30-70) 11/16/16 06:08 Procalcitonin 0.18 NG/ML (0.19-0.49) L 11/28/16 09:52 Arterial Blood Potassium 3.9 mmol/L (3.6-5.2) 11/26/16 15:05 Venous Blood Potassium 3.4 mmol/L (3.6-5.2) L 11/14/16 21:00 Urine Color Yellow (YELLOW) 11/14/16 21:19 Urine Clarity Turbid (Clear) 11/14/16 21:19 Urine pH 6.0 (5.0-8.0) 11/14/16 21:19 Ur Specific [place] 1.027 (1.003-1.030) 11/14/16 21:19 Urine Protein 2+ mg/dL (NEGATIVE) H 11/14/16 21:19 Urine Glucose (UA) 3+ mg/dL (Normal) H 11/14/16 21:19 Urine Ketones 1+ mg/dL (NEGATIVE) H 11/14/16 21:19 Urine Blood 1+ (NEGATIVE) H 11/14/16 21:19 Urine Nitrate Negative (NEGATIVE) 11/14/16 21: Urine Bilirubin Negative (NEGATIVE) 11/14/16 21:19 Urine Urobilinogen Normal mg/dL (0.2-1.0) 11/14/16 21:19 Ur Leukocyte Esterase 2+ Rustam/uL (Negative) H 11/14/16 21:19 Urine WBC (Auto) 686 /hpf (0-5) H 11/14/16 21:19 Urine RBC (Auto) 84 /hpf (0-3) H 11/14/16 21:19 Ur Squamous Epith Cells 25 /hpf (0-5) H 11/14/16 21:19 Stool Leukocytes, Qual Negative (NEGATIVE) 11/20/16 Unknown LEROY UFH Low Dose 0.1 0 % Release 11/19/16 11:22 LEROY UFH Low Dose 0.5 0 % Release 11/19/16 11:22 LEROY UFH High Dose 100 0 % Release 11/19/16 11:22 C. difficile Ag & Toxin Negative (NEGATIVE) 11/30/16 06:00 Attending/Attestation - Attestation I have personally seen and examined this patient.: Yes I have fully participated in the care of the patient.: Yes I have reviewed all pertinent clinical information, including history, physical exam and plan: Yes Notes (Text): 12/01/16 18:34 Physical, Assessment and Plan were thoroughly gone over with the [employer]. Felipe Abdi D.O.
--- NOTE | 2016-12-01 20:12 | CP.PCM.PN ---
Subjective - Date & Time of Evaluation Date of Evaluation: 12/01/16 Time of Evaluation: 20:11 - Subjective Subjective: pt seen and examined by me, pt denies any sob, /chest pain, , pt is getting HF nebulizer treatment Objective - Vital Signs/Intake and Output Vital Signs (last 24 hours): Temp Pulse Resp BP Pulse Ox 98.1 F 81 20 182/76 H 95 12/01/16 16:26 12/01/16 16:26 12/01/16 16:26 12/01/16 16:26 12/01/16 16:26 Intake and Output: 12/01/16 12/02/16 18:59 06:59 Intake Total 850 Output Total 100 Balance 750 - Medications Medications: Current Medications Acetaminophen (Tylenol 650mg/20.3ml Solution Ud) 650 mg PO Q6 PRN PRN Reason: Pain, Mild (1-3) Last Admin: 11/28/16 18:30 Dose: 650 mg Acetylcysteine (Acetylcysteine 20%) 4 ml INH RQ6 [facility] Last Admin: 12/01/16 20:05 Dose: 4 ml Albuterol/Ipratropium (Duoneb 3 Mg/0.5 Mg (3 Ml) Ud) 3 ml INH RQ6 [facility] Last Admin: 12/01/16 20:05 Dose: 3 ml Amlodipine Besylate (Norvasc) 5 mg PO DAILY [facility] Last Admin: 12/01/16 10:25 Dose: 5 mg Ascorbic Acid (Vitamin C 250 Mg Tab) 250 mg PO DAILY [facility] Last Admin: 12/01/16 10:25 Dose: 250 mg Aspirin (Aspirin Chewable) 81 mg NG DAILY [facility] Last Admin: 12/01/16 10:24 Dose: 81 mg Benzonatate (Tessalon Perles) 100 mg PO TID PRN PRN Reason: Sore Throat Carvedilol (Coreg) 25 mg PO Q12 [facility] Last Admin: 12/01/16 10:25 Dose: 25 mg Dorzolamide HCl (Trusopt) 0 ml OU BID [facility] Last Admin: 12/01/16 19:30 Dose: 1 drop Gabapentin (Neurontin) 100 mg PO TID [facility] Last Admin: 12/01/16 19:28 Dose: Not Given Hydralazine HCl (Apresoline) 10 mg IVP Q6H PRN PRN Reason: SBP above 180 mm Hg Last Admin: 11/26/16 23:54 Dose: 10 mg Hydrocortisone (Anusol-Hc) 0 gm HI Q8H [facility] Last Admin: 12/01/16 16:29 Dose: 1 applic Tigecycline 50 mg/ Sodium (Chloride) 100 mls @ 100 mls/hr IVPB Q12H [facility] Last Admin: 12/01/16 12:53 Dose: 100 mls/hr Amikacin Sulfate 500 mg/ (Sodium Chloride) 102 mls @ 204 mls/hr IVPB TTS [facility] Last Admin: 11/29/16 17:33 Dose: 204 mls/hr Insulin Glargine (Lantus) 10 unit SC HS [facility] Last Admin: 11/30/16 22:11 Dose: 10 units Insulin Human Regular (Novolin R) 0 unit SC Q6H [facility] PRN Reason: Protocol Last Admin: 12/01/16 19:26 Dose: 2 unit Multivitamins (Hexavitamin) 1 tab PO DAILY [facility] Last Admin: 12/01/16 10:25 Dose: 1 tab Nystatin (Nystop Topical Powder) 1 applic TOP BID [facility] Last Admin: 12/01/16 19:30 Dose: 1 applic Prednisone (Prednisone Tab) 40 mg PO DAILY [facility] Last Admin: 12/01/16 11:15 Dose: Not Given Rosuvastatin Calcium (Crestor) 10 mg PO HS [facility] Last Admin: 11/30/16 22:11 Dose: 10 mg Saccharomyces Boulardii (Florastor) 250 mg PO BID [facility] Last Admin: 12/01/16 19:28 Dose: Not Given Zinc Sulfate (Zinc Sulfate 220 Mg Cap) 220 mg PO DAILY [facility] Last Admin: 12/01/16 10:25 Dose: 220 mg - Labs Labs: 12/01/16 07:23 12/01/16 07:23 PT 11.5 SECONDS (9.7-12.2) 11/16/16 06:08 INR 1.0 11/16/16 06:08 APTT 31 SECONDS (21-34) 11/16/16 06:08 - Constitutional Appears: Well, No Acute Distress - Head Exam Head Exam: ATRAUMATIC, NORMAL INSPECTION, NORMOCEPHALIC - Eye Exam Eye Exam: EOMI, Normal appearance Pupil Exam: NORMAL ACCOMODATION, PERRL - ENT Exam ENT Exam: Mucous Membranes Moist - Rectal Exam Rectal Exam: Deferred - Extremities Exam Additional comments: b/l AKA - Neurological Exam Neurological Exam: Alert, Awake - Psychiatric Exam Additional comments: oriented x 2-3 - Skin Skin Exam: Normal Color, Warm Assessment and Plan - Assessment and Plan (Free Text) Plan: 61 yo Elderly HF with pmh/o htn, dm, chf, copd, esrd on hd 3x a week , respiratory failure, s/p extubation 1. ESRD, c/w hd 3x aweek TTS 2. HTn, bp is stable , c/w current meds 3. COPD, c/w steroids and inhaller as per pulmonary for possible discharge to [facility] this evening
[2016-12-05 04:54] LABS: STOOL SODIUM 81.6 mEq/L
== END 2016-12-01 21:38 | DRG 166 ==
LOC: C.ER 18:30 → C.9E 21:45 → C.9I 22:33 → C.5T 11-24 12:50
PROVIDERS: ADMIT Family Medicine; ATTEND Family Medicine
PROC: 5A1945Z Respiratory Ventilation, 24-96 Consecutive Hours (ICD-10-PCS; principal; 2016-11-14)
PROC: 0BH17EZ Insertion of Endotracheal Airway into Trachea, Via Natural or Artificial Opening (ICD-10-PCS; 2016-11-14)
PROC: 5A1D60Z (ICD-10-PCS; 2016-11-15)
PROC: 0BBL8ZX Excision of Left Lung, Via Natural or Artificial Opening Endoscopic, Diagnostic (ICD-10-PCS; 2016-11-21)
PROC: 0B9J8ZX Drainage of Left Lower Lung Lobe, Via Natural or Artificial Opening Endoscopic, Diagnostic (ICD-10-PCS; 2016-11-21)
PROC: 0B9G8ZX Drainage of Left Upper Lung Lobe, Via Natural or Artificial Opening Endoscopic, Diagnostic (ICD-10-PCS; 2016-11-21)
PROC: 02HV33Z Insertion of Infusion Device into Superior Vena Cava, Percutaneous Approach (ICD-10-PCS; 2016-11-21)
DX: J96.22 Acute and chronic respiratory failure with hypercapnia (principal); J15.0 Pneumonia due to Klebsiella pneumoniae; I13.2 Hypertensive heart and chronic kidney disease with heart failure and with stage 5 chronic kidney disease, or end stage renal disease; E87.4 Mixed disorder of acid-base balance; N18.6 End stage renal disease; J44.0 Chronic obstructive pulmonary disease with (acute) lower respiratory infection; E46 Unspecified protein-calorie malnutrition; L89.151 Pressure ulcer of sacral region, stage 1; D69.6 Thrombocytopenia, unspecified; J98.19 Other pulmonary collapse; J98.11 Atelectasis; E11.22 Type 2 diabetes mellitus with diabetic chronic kidney disease; F41.9 Anxiety disorder, unspecified; F32.9 Major depressive disorder, single episode, unspecified; E78.00 Pure hypercholesterolemia, unspecified; E87.6 Hypokalemia; E66.01 Morbid (severe) obesity due to excess calories; I50.9 Heart failure, unspecified; I16.0 Hypertensive urgency; E11.42 Type 2 diabetes mellitus with diabetic polyneuropathy; E11.51 Type 2 diabetes mellitus with diabetic peripheral angiopathy without gangrene; E78.5 Hyperlipidemia, unspecified; Z89.611 Acquired absence of right leg above knee; Z86.73 Personal history of transient ischemic attack (TIA), and cerebral infarction without residual deficits; Z99.2 Dependence on renal dialysis; Z79.4 Long term (current) use of insulin; J96.21 Acute and chronic respiratory failure with hypoxia; Z89.612 Acquired absence of left leg above knee; Z51.5 Encounter for palliative care; Z16.24 Resistance to multiple antibiotics; R19.7 Diarrhea, unspecified; R82.71 Bacteriuria

== ENCOUNTER 2017-11-11 06:20 | Day surgery (SDC) | payer MEDICARE ==
[2017-11-11 08:17] LABS: CALCIUM 8.8 mg/dl (8.6-10.4)
[2017-11-11] MEDS ORDERED: HEPARIN-NS 5,000 UNITS/500 ML 10,000 UNIT/1,000 ML BAG IV ONE (10:01)
[2017-11-11] MEDS ORDERED: Sodium Chloride 0.9% 500 ML IV ONE (10:10)
[2017-11-11] MEDS ORDERED: ceFAZolin 1 gm in NS 2 GM/200 ML BAG IVPB ONE (10:16)
[2017-11-11] MEDS ORDERED: Iohexol 240 200 ML ONE (10:16)
[2017-11-11] MEDS ORDERED: HYDROmorphone 0.5 mg/0.5 ml ISec IVP PRN (12:21)
--- NOTE | 2017-11-11 12:21 | PCM.SURG1 ---
Surgeon's Initial Post Op Note - Surgeon's Notes Surgeon: MD [employer] Ironworker: IKER [id number] Pre-Operative Diagnosis: Need for jail dialysis access Operative Findings: n/a Post-Operative Diagnosis: same Operation Performed: Left AV shunt with graft Specimen/Specimens Removed: n/a Estimated Blood Loss: EBL {In ML}: 150 Date of Surgery/Procedure: 11/11/17 Time of Surgery/Procedure: 10:30
[2017-11-11] MEDS ORDERED: Succinylcholine Chloride 20 mg/ml Syr (5 ml) IV ONE (12:24)
[2017-11-11] MEDS ORDERED: ePHEDrine 50 mg/ml Inj ONE (12:24)
[2017-11-11] MEDS ORDERED: Propofol 10 mg/ml Inj (20 ML) ONE (12:24)
[2017-11-11 13:47] VITALS: O2SAT 95
[2017-11-11 14:31] VITALS: BP 154/56; PULSE 70; RESP 16; TEMP 97.3
--- NOTE | 2017-11-11 17:03 | RAD ---
PROCEDURE: Intraoperative Fluoroscopy. HISTORY: RENAL FAILURE FINDINGS: Fluoroscopic assistance was provided. Fluoroscopy time = 142.4 seconds. Radiation dose = 11.69 mGy Please refer to the operative report from BELINDA Maynard.
--- NOTE | 2017-11-11 21:57 | OP ---
PROCEDURE DATE: 11/11/2017 PREOPERATIVE DIAGNOSIS: Renal failure, lack of venous access. PROCEDURE CARRIED OUT: Placement of hybrid AV shunt left upper arm loop, brachial left arm. SURGEON: Azar Phillips Jr., MD DIRECTOR STRATEGIC PLANNING: Dr. Segal. ANESTHESIOLOGIST: Mr. Vazquez. TYPE OF ANESTHESIA: General anesthesia. INDICATIONS: The patient is a middle aged woman, previous amputations on dialysis. Right-sided catheter. No previous attempts of access. OPERATIVE FINDINGS: Preoperative vein mapping did not reveal adequate range with which to do a fistula, either basilic or delayed transposition. Because of this, we then created a shunt in the left upper arm. The shunt was placed on the proximal brachial artery because of the small size of the brachial artery at the elbow which was seen on ultrasonography. At the end of the procedure, we had excellent Doppler signals in both the radial and ulnar vessels at the wrist. DESCRIPTION OF PROCEDURE: The patient was given general anesthesia and intravenous antibiotics. The area was marked out with ultrasound. We then made an excision exposing the artery. After the artery was identified and controlled, we then did a curved puncture of the adjacent vein, deployed a micropuncture technique catheter. Changed this to an 0.035 wire, deployed a #14 Thai catheter and deployed a 6 to 8 mm Hybrid Wallace-Sukh shunt with the venous end being done first, then brought to the arterial tunnel, brought to the subcutaneous tunnel in a horse shoe fashion, and anastomosis of the artery using loop magnification after an anticoagulation. The patient has been given heparin while we are doing this part of the procedure. After obtaining hemostasis, we cleansed the wounds with Monocryl and Vicryl sutures. Skin clips were applied to the skin. Blood loss to the whole procedure was 150 mL and operation carried out was Hybrid shunt left upper arm. After deployment of the stent at the venous site, we then carried out fistula venogram which showed some torsion here, which responded to balloon dilatation. The stent was fully opposed and opened at the point of impact. Operation carried out is Hybrid arteriovenous shunt left upper arm. Azar Phillips Jr., MD
== END 2017-11-11 15:16 | disposition home or self-care (01) ==
LOC: C.SDS 06:20
PROVIDERS: ATTEND Surgery Vascular Surgery
DX: I12.0 Hypertensive chronic kidney disease with stage 5 chronic kidney disease or end stage renal disease (principal); N18.6 End stage renal disease; E11.22 Type 2 diabetes mellitus with diabetic chronic kidney disease
CPT/HCPCS: 36415; 36821; 80048; 82948; J0690; J1644; J7030

== ENCOUNTER 2018-05-10 07:32 | Inpatient (IN) | payer MEDICARE, MEDICAID ==
[2018-05-10 07:45] VITALS: BMI 45.0
--- NOTE | 2018-05-10 08:01 | C.PDOC ---
History Of Present Illness 63 y/o female referred from halfway for lethargy, hypotension, hypoxia, for unknown duration. As per EMS, patient was awake en route, O2 nasal cannula applied, with no change in mental status. Records reviewed, patient is a [facility] dialysis patient, unknown last dialysis session. PMHx significant for poorly controlled DM with diabetic retinopathy/nephropathy, ESRD on HD, peripheral vascular disease, B/L AKA, HTN, morbid obesity who presented to the hospital from [place] with culture positive ESBL in the urine. She is s/p discharge from [facility] on 05/01/18 from admission for urosepsis, on aztreonam. Patient also recently had dialysis catheter revised, and is s/p transfusion with no GI bleeding. Time Seen by Provider: 05/10/18 07:38 Chief Complaint (Nursing): Altered Mental Status History Per: Patient History/Exam Limitations: Clinical Condition Onset/Duration Of Symptoms: Unknown Onset Of Symptoms: Cannot Confirm Onset Current Symptoms Are (Timing): Still Present Past Medical History Reviewed: Historical Data, Nursing Documentation, Vital Signs Vital Signs: Last Vital Signs Temp 100 F H 05/10/18 07:39 Pulse 83 05/10/18 07:39 Resp 16 05/10/18 07:39 BP 115/47 L 05/10/18 07:39 Pulse Ox 100 05/10/18 07:39 - Medical History PMH: Anemia, Anxiety, Asthma, COPD (ASTHMA,), Depression, Diabetes, Emphysema, HTN, Hypercholesterolemia, Hyperlipidemia, Peripheral Edema, Pneumonia, Chronic Kidney Disease Comment Only: Cardia Arrhythmia ([id number] syndrom) Surgical History: - [facility] Procedures (04/20/18) AMPUTATION STUMP NICKI (06/24/14) ANGIOPLASTY OR ATHERECTOMY OF OTHER NON-CORONARY VESSEL(S) (12/14/06) APPLICATION OF SPLINT (10/23/04) BELOW KNEE AMPUTAT NEC (12/14/06) CENTRAL VENOUS CATHETER PLACEMENT WITH GUIDANCE (01/30/15) CONTR ABD ARTERIOGRM NEC (10/28/06) CONTR CEREBR ARTERIOGRAM (09/27/04) CONTRAST AORTOGRAM (12/14/06) CONTRAST ARTERIOGRAM NEC (12/14/06) CONTRAST ARTERIOGRAM-LEG (10/28/06) CORONAR ARTERIOGR-2 CATH (08/17/06) DILATION OF LEFT BRACHIAL ARTERY, PERCUTANEOUS APPROACH (04/20/18) DILATION OF LEFT RADIAL ARTERY, PERCUTANEOUS APPROACH (04/20/18) DRAINAGE OF GALLBLADDER WITH DRAINAGE DEVICE, PERC APPROACH (02/21/15) DRAINAGE OF LEFT LOWER LUNG LOBE, ENDO, DIAGN (11/14/16) DRAINAGE OF LEFT UPPER LUNG LOBE, ENDO, DIAGN (11/14/16) ESOPHAGOGASTRODUODENOSCOPY [EGD] W/CLOSED BIOPSY (12/04/11) EXCIS DEBRIDE OF WOUND, INFECT, OR BURN (10/08/11) EXCISION OF LEFT LUNG, ENDO, DIAGN (11/14/16) EXCISION OF SMALL INTESTINE, ENDO, DIAGN (06/26/16) EXCISION OF STOMACH, ENDO, DIAGN (02/21/15) FLUOROSCOPY OF L UP EXTREM ART USING L OSM CONTRAST (04/20/18) FLUOROSCOPY R UP EXTREM VEIN W L OSM CONTRAST, GUIDANCE (04/08/16) INJECT ANTICOAGULANT (09/18/06) INJECT/INFUSE NEC (05/15/06) INSERT INFUSION DEV IN R INT JUGULAR VEIN, PERC (10/31/16) INSERTION OF ENDOTRACHEAL AIRWAY INTO TRACHEA, VIA OPENING (11/14/16) INSERTION OF INFUSION DEV INTO R SUBCLAV VEIN, PERC APPROACH (04/20/18) INSERTION OF INFUSION DEV INTO SUP VENA CAVA, PERC APPROACH (11/14/16) INSERTION OF [id number] PERIPHERAL VESSEL STENT(S) (10/28/06) INSERTION OF ONE VASCULAR STENT (09/18/06) INSERTION OF THREE VASCULAR STENTS (09/18/06) INSPECTION OF UPPER INTESTINAL TRACT, ENDO (04/20/18) INTRODUCE OF OTH THERAP SUBST INTO RESP TRACT, VIA OPENING (02/21/15) LEFT HEART CARDIAC CATH (08/17/06) LT HEART ANGIOCARDIOGRAM (08/17/06) MAGNETIC RESONANCE IMAGING OF BRAIN AND BRAIN STEM (05/21/03) MRI OF OTHER AND UNSPECIFIED SITES (09/27/04) NEBULIZER THERAPY (05/26/12) NON-INVASIVE MECHANICAL VENTILATION (10/08/11) NONEXCIS DEBRID OF WOUND, INFECT, OR BURN (09/08/14) PACKED CELL TRANSFUSION (07/18/14) PERC ANGIOPLASTY OR ATHERECTOMY OF PRECER (EXTRACRAN) VES(S) (09/18/06) PERC INSERTION OF CAROTID ARTERY STENT(S) (09/18/06) PERFORMANCE OF URINARY FILTRATION, MULTIPLE (11/14/16) PERFORMANCE OF URINARY FILTRATION, SINGLE (10/31/16) PROCEDURE ON SINGLE VESSEL (09/18/06) PROCEDURE ON TWO VESSELS (09/18/06) RESPIRATORY VENTILATION, 24-96 CONSECUTIVE HOURS (11/14/16) TRANSFUSE NONAUT RED BLOOD CELLS IN CENTRAL VEIN, PERC (04/20/18) TRANSFUSE NONAUT RED BLOOD CELLS IN PERIPH VEIN, PERC (10/31/16) ULTRASONOGRAPHY OF RIGHT JUGULAR VEINS, GUIDANCE (10/31/16) ULTRASONOGRAPHY OF RIGHT SUBCLAVIAN VEIN, GUIDANCE (04/20/18) ULTRASONOGRAPHY OF RIGHT UPPER EXTREMITY VEINS, GUIDANCE (04/08/16) ULTRASONOGRAPHY OF SUPERIOR VENA CAVA, GUIDANCE (12/13/15) UPPER LIMB ENDARTERECTOM (12/14/06) VACCINATION NEC (09/08/14) VENOUS CATHETERIZATION NEC (05/06/12) Family History: States: Unknown Family Hx - Social History Hx Tobacco Use: No Hx Alcohol Use: No Hx Substance Use: No - Immunization History Hx Tetanus Toxoid Vaccination: No Review Of Systems Review Of Systems: ROS cannot be obtained secondary to pt's inabilty to answer questions. Physical Exam - Physical Exam Appears: Chronically Ill, Other (Awake) Skin: Warm, Dry, Other (Pressure ulcer to sacrum) Head: Atraumatic, Normacephalic Eye(s): bilateral: Normal Inspection, PERRL, EOMI Oral Mucosa: Moist Neck: Normal ROM, Supple Chest: Symmetrical Cardiovascular: Rhythm Regular, No Murmur Respiratory: No Accessory Muscle Use, Other (Limited full breath sounds, no tachypnea or retractions) Gastrointestinal/Abdominal: Soft, No Tenderness, No Distention, Other (Obese abdomen) Extremity: Deformity (Bilateral AKA) Extremity: Left: Other (Left hand with digital gangrene; LUE s/p angioplasty), Bilateral: Normal Color And Temperature Pulses: Left Radial: Normal, Right Radial: Normal Neurological/Psych: Other (Interactive with staff, appropriate behavior) ED Course And Treatment - Laboratory Results Result Diagrams: 05/10/18 08:24 05/10/18 09:06 ECG: Interpreted By Me, Viewed By Me ECG Rhythm: Sinus Rhythm ECG Interpretation: No Changes From Prior (unchanged from 04/20/18) Rate From EC (bpm) O2 Sat by Pulse Oximetry: 100 (RA) Pulse Ox Interpretation: Normal - Radiology CXR: Interpreted by Me (NEGATIVE) Progress - Re-Evaluation Re-evaluation Note: 05/10/18 08:43 NARD SBP 90. 05/10/18 09:38 D/W DR MARY LOU MORENO GEOTHERMAL PRODUCTION MANAGER WILL ADMIT - Data Reviewed Data Reviewed: Lab, Diagnostic imaging, EKG, Old records - Critical Care Citical Care: Excluding Proc Time Critical Care Time: 90 minutes Medical Decision Making Medical Decision Making: Impression: Altered mental status, r/o sepsis Will defer IV fluids per sepsis protocol due to HD history unknown last dialysis. Current volume static. Initial Plan: --EKG --VBG --Blood work w/ coag panel --Blood culture --Urinalysis --Urine culture --Flu swab --Chest x-ray Disposition Counseled Patient/Family Regarding: Studies Performed, Diagnosis - Disposition Disposition: HOSPITALIZED Disposition Time: 09:39 Condition: SERIOUS Forms: [facility] [employer] [facility] (Guatemalan) - POA Present On Arrival: None - Clinical Impression Clinical Impression: Chronic renal insufficiency, UTI (urinary tract infection), ESBL (extended spectrum beta-lactamase) producing bacteria infection - Scribe Statement The provider has reviewed the documentation as recorded by the Bg Whaley Provider Attestation: All medical record entries made by the Darrianibjeremiah were at my direction and personally dictated by me. I have reviewed the chart and agree that the record accurately reflects my personal performance of the history, physical exam, medical decision making, and the department course for this patient. I have also personally directed, reviewed, and agree with the discharge instructions and disposition.
[2018-05-10 08:36] LABS: BASO # 0.1 K/uL (0.0-0.2); BASO % 0.4 % (0.0-2.0); EOS # 0.1 K/uL (0.0-0.7); EOS % 0.8 % (0.0-4.0); HEMOGLOBIN 12.8 g/dL (11.0-16.0); LYMPH # 1.7 K/uL (1.0-4.3); LYMPH % 10.5 % (20.0-40.0); MEAN CELL VOLUME 98.1 fL (81.0-99.0); MEAN CORPUSCULAR HGB CONC 31.6 g/dL (33.0-37.0); MEAN PLATELET VOLUME 10.4 fL (7.2-11.7); MONO # 1.4 K/uL (0.0-0.8); MONO % 8.6 % (0.0-10.0); NEUT # 13.3 K/uL (1.8-7.0); NEUT % 79.7 % (50.0-75.0); NRBC % 0.1 % (0.0-2.0); RBC 4.13 Mil/uL (3.80-5.20); RED CELL DISTRIBUTION WIDTH 17.5 % (11.5-14.5); WHITE BLOOD COUNT 16.6 K/uL (4.8-10.8)
[2018-05-10 08:39] LABS: INR 1.2; PROTHROMBIN TIME 12.9 SECONDS (9.7-12.2)
[2018-05-10 09:07] LABS: VENOUS BLOOD GAS BASE EXCESS -3.3 mmol/L (0.0-2.0); VENOUS BLOOD GAS PCO2 51 mmHg (40-60); VENOUS BLOOD GAS PO2 26 mm/Hg (30-55); VENOUS BLOOD PH 7.28 (7.32-7.43)
[2018-05-10 09:11] LABS: ABG ALLEN TEST POS; ARTERIAL BLOOD GAS HEMOGLOBIN 11.8 g/dL (11.7-17.4); ARTERIAL BLOOD GAS O2 SAT 97.6 % (95-98); ARTERIAL BLOOD GAS PCO2 36 mm/Hg (35-45); ARTERIAL BLOOD GAS PH 7.33 (7.35-7.45); ARTERIAL BLOOD GAS PO2 82 mm/Hg (80-100); ARTERIAL BLOOD GAS TCO2 20.1 mmol/L (22-28)
[2018-05-10 09:15] LABS: SQUAMOUS EPITHIAL 88 /hpf (0-5); URINE BACTERIA MANY (<OCC); URINE BILIRUBIN NEGATIVE (NEGATIVE); URINE CLARITY Turbid (Clear); URINE COLOR Amber (YELLOW); URINE GLUCOSE (UA) NORMAL (Normal); URINE PROTEIN 2+ mg/dL (NEGATIVE); URINE UROBILINOGEN NORMAL mg/dL (0.2-1.0)
[2018-05-10 09:24] LABS: URINE BLOOD 3+ (NEGATIVE); URINE LEUKOCYTE ESTERASE 3+ Leu/uL (Negative)
[2018-05-10 09:29] LABS: CALCIUM 9.5 mg/dl (8.6-10.4)
[2018-05-10 09:30] LABS: ALB/GLOB RATIO 0.8 (1.0-2.1); ALBUMIN 3.4 g/dL (3.5-5.0)
[2018-05-10] MEDS ORDERED: Aztreonam 1 GM in Sodium Chloride 0.9% 100 ML IVPB STA (09:40)
[2018-05-10] MEDS ORDERED: Sodium Chloride 0.9% 250 ML IV ONE ×2 (10:21→16:01)
--- NOTE | 2018-05-10 10:25 | RAD ---
Date of service: 05/10/2018 HISTORY: Sepsis Patient COMPARISON: 11/30/2016 FINDINGS: LUNGS: No active pulmonary disease. PLEURA: No significant pleural effusion identified, no pneumothorax apparent. CARDIOVASCULAR: No aortic atherosclerotic calcification present. Normal cardiac size. No pulmonary vascular congestion. OSSEOUS STRUCTURES: No significant abnormalities. VISUALIZED UPPER ABDOMEN: Normal. OTHER FINDINGS: There is a right-sided dialysis catheter terminating in the right atrium IMPRESSION: No active disease.
[2018-05-10 11:36] LABS: VENOUS BLOOD GAS BASE EXCESS -5.5 mmol/L (0.0-2.0); VENOUS BLOOD GAS PCO2 42 mmHg (40-60); VENOUS BLOOD GAS PO2 50 mm/Hg (30-55)
--- NOTE | 2018-05-10 12:48 | CARD ---
APPROVED REPORT Date of service: 05/10/2018 EKG Measurement Heart [id number] <Conclusion> Normal sinus rhythm Marked ST abnormality, possible lateral subendocardial injury Abnormal ECG
[2018-05-10] MEDS ORDERED: metroNIDAZOLE IV 500 mg/100 ml 250 MG in Premixed IV 1 EA IVPB SCH (13:15)
[2018-05-10] MEDS ORDERED: Sodium Chloride 0.9% 1,000 ML IV SCH (13:15)
[2018-05-10] MEDS ORDERED: metroNIDAZOLE IV 250mg/50 ml 250 MG/50 ML BAG IVPB SCH (14:00)
--- NOTE | 2018-05-10 14:26 | PCM.RRT ---
SENIOR PORTFOLIO ANALYST Nurses Assessment - Situation Date: 05/10/18 - Ventilator Settings Ventilator Respiratory Rate Settin Ventilator Tidal Volume Settin I.Reason for SENIOR PORTFOLIO ANALYST - A) Acute Change in Patient: (Select all that apply): Staff member or family is worried about patient (hypotension 60/38) - Neurological Status (Select all that apply): Alert, Responsive, Oriented, Verbal, Lethargic - Respiratory Oxygen Delivery Method: Room Air (99%) - Constitutional Appears: Chronically Ill, Other (lethargic) - Head Head Exam: ATRAUMATIC, NORMOCEPHALIC - Eyes Eye Exam: Normal appearance - Respiratory Exam Respiratory Exam: Decreased Breath Sounds, Clear to Ausculation Bilateral, NORMAL BREATHING PATTERN. absent: Accessory Muscle Use, Rales, Rhonchi, Wheezes, Respiratory Distress - Cardiovascular Exam Cardiovascular Exam: REGULAR RHYTHM, +S1, +S2 - GI/Abdominal Exam GI & Abdominal Exam: Soft. absent: Distended, Firm, Guarding, Rigid, Tenderness - Neurological Exam Neurological Exam: Alert, Awake Additional exam: Responds to pain. Neuro status at baseline - oriented to self - Extremities Exam Additional comments: b/l lower extremities amputated Plan - Assessment of Findings&Treatment Plan Patient is a 63 year old female who was recently admitted for lethargy, hypotension and hypoxia from a [facility]. The SENIOR PORTFOLIO ANALYST was called for a blood pressure of 60/38. Upon arrival physician's arrival, patient was very lethargic appearing but responsive to pain. Strength 5/5 in upper extremities as she was easily able to grab physician's hands and push away from sternal rub. Patient was placed in trendelenburg positioning. Blood pressure increased to 104/76 with a HR of 80 bpm, Pulse Ox 99% on RA with a normal breathing pattern. Patient's blood pressure continued to improve with readings of 132/56, 149/46 and 132/56 (manual). Patient returned to her baseline. No testing or medications were ordered. Case discussed with Dr. Carla Drummond Blanca PGY2
[2018-05-10] MEDS ORDERED: Dextrose 50% SYRINGE Inj (50 ml) IV PRN (14:39)
[2018-05-10] MEDS ORDERED: Glucagon Recombinant 1 mg Inj IM PRN (14:39)
[2018-05-10] MEDS ORDERED: Albuterol-Ipratrop 20 mcg/actuation (4 g) INH PRN (15:13)
--- NOTE | 2018-05-10 17:07 | CP.PCM.CON ---
History of Present Illness - History of Present Illness History of Present Illness: Critical Care Consult Note for Dr. Ceron 63 year old female with PMHx of ESRD on HD TThS, DM 2, HTN, HLD, COPD, previous multi-drug resistant UTI brought to ED from care home for lethargy and hypotension admitted for UTI. [facility] called today for patient for hypotension 60/38. ICU was consulted for persistent hypotension despite 3L IV NS. Patient complains of suprapubic abdominal pain. Unable to obtain further history secondary to patient condition. History obtained via chart review. 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 Remeron 15mg HS, Silvadene Cream 1% behind left buttock and thigh BID, Tylenol 325 Q4H PRN mild pain Allergies: Oxycodone, cilastin, imipenem Family History:unable to obtain Social: Patient lives in [place], [facility]. Denies tobacco, alcohol, drugs. PMD: Dr. Lisset Bee, as per care home records Review of Systems - Review of Systems Systems not reviewed;Unavailable: Other (Patient condition) Past Patient History - Infectious Disease Hx of Infectious Diseases: None - Past Medical History & Family History Past Medical History?: Yes - Past Social History Smoking Status: Former Smoker - CARDIAC Hx Cardiac Disorders: Yes Hx Cardia Arrhythmia: ([id number] syndrom) Hx Hypercholesterolemia: Yes Hx Hypertension: Yes Hx Peripheral Edema: Yes - PULMONARY Hx Respiratory Disorders: Yes Hx Asthma: Yes Hx Chronic Obstructive Pulmonary Disease (COPD): Yes (ASTHMA,) Hx Emphysema: Yes Hx Pneumonia: Yes - NEUROLOGICAL Hx Neurological Disorder: Yes HX Cerebrovascular Accident: Yes - HEENT Hx HEENT Problems: Yes (WEARS RX GLASSES) Hx Blind: No Hx Cataracts: No Hx Deafness: No Hx Difficulty Chewing: No Hx Epistaxis: No Hx Glaucoma: Yes Hx Macular Degeneration: No Other/Comment: TOP & BOTTOM DENTURES - RENAL Hx Chronic Kidney Disease: Yes Hx Dialysis: Yes Type of Dialysis Access: Right chest permacath Date of Last Dialysis Treatment: 05/08/18 - ENDOCRINE/METABOLIC Hx Endocrine Disorders: Yes Hx Diabetes Mellitus Type 2: Yes - HEMATOLOGICAL/ONCOLOGICAL Hx Blood Disorders: Yes Hx Anemia: Yes - INTEGUMENTARY Hx Dermatological Problems: Yes Other/Comment: notes from last pt visit/previous triage:redness under both breasts and b/l abd folds, healed skin to buttocks and sacrum - MUSCULOSKELETAL/RHEUMATOLOGICAL Hx Falls: No - GASTROINTESTINAL Hx Gastrointestinal Disorders: Yes Hx Gastroesophageal Reflux: Yes Other/Comment: obesity - GENITOURINARY/GYNECOLOGICAL Hx Genitourinary Disorders: Yes Hx Hematuria: No Hx Incontinence: Yes Hx Urinary Tract Infection: Yes Other/Comment: pylonephritis - PSYCHIATRIC Hx Psychophysiologic Disorder: Yes Hx Anxiety: Yes Hx Depression: Yes Hx Substance Use: No - SURGICAL HISTORY Hx Surgeries: Yes Hx Amputation: Yes (BL BKA) - ANESTHESIA Hx Anesthesia: Yes Hx Anesthesia Reactions: No Hx Malignant Hyperthermia: No Has any member of the family had a problem w/ anesthesia?: No Meds Allergies/Adverse Reactions: Allergies Allergy/AdvReac Type Severity Reaction Status Date / Time cilastatin sodium Allergy RASH Verified 04/20/18 21:48 [From Primaxin] imipenem [From Primaxin] Allergy RASH Verified 04/20/18 21:48 oxycodone Allergy RASH Verified 04/20/18 21:48 cilastin Allergy unknown Uncoded 04/20/18 21:48 - Medications Medications: Current Medications Acetaminophen (Tylenol 325mg Tab) 650 mg PO Q4H PRN PRN Reason: Pain, Mild (1-3) Albuterol/Ipratropium (Combivent Respimat) 2 puff INH BID PRN PRN Reason: Shortness of Breath Albuterol/Ipratropium (Duoneb 3 Mg/0.5 Mg (3 Ml) Ud) 3 ml INH RQ6 [facility] Ascorbic Acid (Vitamin C 250 Mg Tab) 250 mg PO DAILY [facility] Dextrose (Dextrose 50% Inj) 0 ml IV STAT PRN; Protocol PRN Reason: Hypoglycemia Protocol Dextrose (Glutose 15) 0 gm PO ONCE PRN; Protocol PRN Reason: Hypoglycemia Protocol Gabapentin (Neurontin) 100 mg PO TID [facility] Glucagon (Glucagen Diagnostic Kit) 0 mg IM STAT PRN; Protocol PRN Reason: Hypoglycemia Protocol Metronidazole (Flagyl) 250 mg in 50 mls @ 100 mls/hr IVPB Q12H [facility]; Protocol Last Admin: 05/10/18 14:03 Dose: 100 mls/hr Dextrose (Dextrose 5% In Water 1000 Ml) 1,000 mls @ 0 mls/hr IV .Q0M PRN; Protocol PRN Reason: Hypoglycemia Protocol Sodium Chloride (Sodium Chloride 0.9%) 250 mls @ 250 mls/hr IV .Q1H ONE Stop: 05/10/18 17:00 Last Admin: 05/10/18 16:13 Dose: 250 mls/hr Insulin Aspart (Novolog) 0 unit SC ACHS [facility]; Protocol Insulin Glargine (Lantus) 10 unit SC HS [facility] Mirtazapine (Remeron) 7.5 mg PO HS [facility] Rosuvastatin Calcium (Crestor) 5 mg PO HS [facility] Physical Exam - Constitutional Appears: Other (Lethargic) - Head Exam Head Exam: ATRAUMATIC, NORMOCEPHALIC - Eye Exam Eye Exam: EOMI - ENT Exam ENT Exam: Mucous Membranes Dry - Neck Exam Neck exam: Positive for: Full Rom - Respiratory Exam Respiratory Exam: Clear to Auscultation Bilateral. absent: Accessory Muscle Use, Decreased Breath Sounds, Rhonchi, Wheezes, Respiratory Distress - Cardiovascular Exam Cardiovascular Exam: REGULAR RHYTHM, +S1, +S2 - GI/Abdominal Exam GI & Abdominal Exam: Normal Bowel Sounds, Tenderness (diffuse ). absent: D istended, Guarding, Rebound, Rigid - Extremities Exam Additional comments: Bilateral BKA - Neurological Exam Additional comments: Awake, lethargic, oriented to self only. Follows commands. 4/5 bilateral upper extremity muscle strength - Psychiatric Exam Psychiatric exam: Flat Affect - Skin Additional comments: R permacath noted. Unstagable sacral ulcer. L AV fistula. Results - Vital Signs Recent Vital Signs: Last Vital Signs Temp 98.1 F 05/10/18 15:00 Pulse 81 05/10/18 16:37 Resp 18 05/10/18 16:37 BP 56/29 L 05/10/18 16:37 Pulse Ox 100 05/10/18 16:37 - Labs Result Diagrams: 05/10/18 08:24 05/10/18 09:06 Labs: Laboratory Results - last 24 hr 05/10/18 05/10/18 05/10/18 07:54 08:24 08:24 WBC 16.6 H RBC 4.13 Hgb 12.8 Hct 40.5 MCV 98.1 D MCH 31.0 MCHC 31.6 L RDW 17.5 H Plt Count 257 D MPV 10.4 Neut % (Auto) 79.7 H Lymph % (Auto) 10.5 L [place] % (Auto) 8.6 Eos % (Auto) 0.8 Baso % (Auto) 0.4 Neut # (Auto) 13.3 H Lymph # (Auto) 1.7 [place] # (Auto) 1.4 H Eos # (Auto) 0.1 Baso # (Auto) 0.1 PT 12.9 H INR 1.2 APTT 36 H Puncture Site pCO2 pO2 HCO3 ABG pH ABG Total CO2 ABG O2 Saturation ABG Base Excess ABG Hemoglobin ABG Carboxyhemoglobin POC ABG HHb (Measured) ABG Methemoglobin Rg Test VBG pH VBG pCO2 VBG HCO3 VBG Total CO2 VBG O2 Sat (Calc) VBG Base Excess VBG Potassium A-a O2 Difference Respiratory Index Hgb O2 Saturation Sodium Chloride Glucose Lactate FiO2 Potassium Carbon Dioxide Anion Gap BUN Creatinine Est GFR ( Amer) Est GFR (Non-Af Amer) POC Glucose (mg/dL) 156 H Random Glucose Calcium Phosphorus Magnesium Total Bilirubin AST ALT Alkaline Phosphatase Total Protein Albumin Globulin Albumin/Globulin Ratio Venous Blood Potassium Urine Color Urine Clarity Urine pH Ur Specific [place] Urine Protein Urine Glucose (UA) Urine Ketones Urine Blood Urine Nitrate Urine Bilirubin Urine Urobilinogen Ur Leukocyte Esterase Urine WBC (Auto) Urine RBC (Auto) Ur Squamous Epith Cells Urine Bacteria Influenza Typ A,B (EIA) 05/10/18 05/10/18 05/10/18 08:24 08:31 09:01 WBC RBC Hgb Hct MCV MCH MCHC RDW Plt Count MPV Neut % (Auto) Lymph % (Auto) [place] % (Auto) Eos % (Auto) Baso % (Auto) Neut # (Auto) Lymph # (Auto) [place] # (Auto) Eos # (Auto) Baso # (Auto) PT INR APTT Puncture Site pCO2 pO2 26 L HCO3 ABG pH ABG Total CO2 ABG O2 Saturation ABG Base Excess ABG Hemoglobin ABG Carboxyhemoglobin POC ABG HHb (Measured) ABG Methemoglobin Rg Test VBG pH 7.28 L VBG pCO2 51 VBG HCO3 20.8 VBG Total CO2 25.6 VBG O2 Sat (Calc) 53.2 VBG Base Excess -3.3 L VBG Potassium 2.9 L A-a O2 Difference Respiratory Index Hgb O2 Saturation Sodium 140.0 Chloride 105.0 Glucose 160 H Lactate 1.7 FiO2 Potassium Carbon Dioxide Anion Gap BUN Creatinine Est GFR ( Amer) Est GFR (Non-Af Amer) POC Glucose (mg/dL) Random Glucose Calcium Phosphorus Magnesium Total Bilirubin AST ALT Alkaline Phosphatase Total Protein Albumin Globulin Albumin/Globulin Ratio Venous Blood Potassium 2.9 L Urine Color [place] Urine Clarity Turbid Urine pH 5.0 Ur Specific [place] 1.026 Urine Protein 2+ H Urine Glucose (UA) Normal Urine Ketones Negative Urine Blood 3+ H Urine Nitrate Negative Urine Bilirubin Negative Urine Urobilinogen Normal Ur Leukocyte Esterase 3+ H Urine WBC (Auto) 630 H Urine RBC (Auto) 510 H Ur Squamous Epith Cells 88 H Urine Bacteria Many H Influenza Typ A,B (EIA) Negative for flu a/b 05/10/18 05/10/18 05/10/18 09:05 09:06 11:33 WBC RBC Hgb Hct MCV MCH MCHC RDW Plt Count MPV Neut % (Auto) Lymph % (Auto) [place] % (Auto) Eos % (Auto) Baso % (Auto) Neut # (Auto) Lymph # (Auto) [place] # (Auto) Eos # (Auto) Baso # (Auto) PT INR APTT Puncture Site Lra pCO2 36 pO2 82 50 HCO3 20.0 L ABG pH 7.33 L ABG Total CO2 20.1 L ABG O2 Saturation 97.6 ABG Base Excess -6.3 L ABG Hemoglobin 11.8 ABG Carboxyhemoglobin 1.4 POC ABG HHb (Measured) 2.3 ABG Methemoglobin 0.9 Rg Test Pos VBG pH 7.30 L VBG pCO2 42 VBG HCO3 20.2 VBG Total CO2 22.0 VBG O2 Sat (Calc) 88.6 H VBG Base Excess -5.5 L VBG Potassium 3.9 A-a O2 Difference 23.0 Respiratory Index 0.3 Hgb O2 Saturation 95.4 Sodium 136 136.0 Chloride 101 105.0 Glucose 254 H Lactate 1.1 FiO2 21.0 Potassium 3.7 Carbon Dioxide 21 L Anion Gap 18 BUN 36 H Creatinine 4.6 H Est GFR ( Amer) 12 Est GFR (Non-Af Amer) 10 POC Glucose (mg/dL) Random Glucose 187 H Calcium 9.5 Phosphorus 2.3 L Magnesium 2.1 Total Bilirubin 0.7 AST 58 H D ALT 14 Alkaline Phosphatase 91 Total Protein 7.5 Albumin 3.4 L D Globulin 4.1 H Albumin/Globulin Ratio 0.8 L Venous Blood Potassium 3.9 Urine Color Urine Clarity Urine pH Ur Specific [place] Urine Protein Urine Glucose (UA) Urine Ketones Urine Blood Urine Nitrate Urine Bilirubin Urine Urobilinogen Ur Leukocyte Esterase Urine WBC (Auto) Urine RBC (Auto) Ur Squamous Epith Cells Urine Bacteria Influenza Typ A,B (EIA) 05/10/18 05/10/18 05/10/18 12:05 13:15 16:00 WBC RBC Hgb Hct MCV MCH MCHC RDW Plt Count MPV Neut % (Auto) Lymph % (Auto) [place] % (Auto) Eos % (Auto) Baso % (Auto) Neut # (Auto) Lymph # (Auto) [place] # (Auto) Eos # (Auto) Baso # (Auto) PT INR APTT Puncture Site pCO2 pO2 HCO3 ABG pH ABG Total CO2 ABG O2 Saturation ABG Base Excess ABG Hemoglobin ABG Carboxyhemoglobin POC ABG HHb (Measured) ABG Methemoglobin Rg Test VBG pH VBG pCO2 VBG HCO3 VBG Total CO2 VBG O2 Sat (Calc) VBG Base Excess VBG Potassium A-a O2 Difference Respiratory Index Hgb O2 Saturation Sodium Chloride Glucose Lactate FiO2 Potassium Carbon Dioxide Anion Gap BUN Creatinine Est GFR ( Amer) Est GFR (Non-Af Amer) POC Glucose (mg/dL) 240 H 266 H 227 H Random Glucose Calcium Phosphorus Magnesium Total Bilirubin AST ALT Alkaline Phosphatase Total Protein Albumin Globulin Albumin/Globulin Ratio Venous Blood Potassium Urine Color Urine Clarity Urine pH Ur Specific [place] Urine Protein Urine Glucose (UA) Urine Ketones Urine Blood Urine Nitrate Urine Bilirubin Urine Urobilinogen Ur Leukocyte Esterase Urine WBC (Auto) Urine RBC (Auto) Ur Squamous Epith Cells Urine Bacteria Influenza Typ A,B (EIA) Assessment & Plan - Assessment and Plan (Free Text) Plan: 63 year old female with PMHx of ESRD on HD TThS, DM 2, HTN, HLD, COPD, previous multi-drug resistant UTI brought to ED from care home for lethargy and hyp otension admitted for UTI. [facility] RE[facility] called today for patient for hypotension 60/38. ICU was consulted for persistent hypotension. Neuro: Awake, oriented to self Gabapentin 100mg TID Tylenol 650 PO Q4H PRN pain Remeron 7.5mg PO HS Cardio: BP in ICU: 107-117/38-44, monitor Crestor 5mg PO HS D5/0.45%NS @ 40cc/hr Pulm: Duonebs INH RQ6H CXR 05/10: No active disease GI: Renal diet Renal: BUN/Cr: 36/4.6 HD on TThS, resume tomorrow Endo: Glargine 10u SC HS Aspart sliding scale ACHS Skin: Wound care nurse consulted for sacral ulcer: Medihoney and foam dressing daily Turn Q2 hours ID: WBC 16.6 Tmax: 100 on admission UA: 3+ blood, 2+protein, 3+ LE, 630 WBC, many bacteria Aztronam 500mg Q12H Metronidazole IV 250mg Q8H follow up blood cx, urine cx Heme: H/H: 12.8/40.5 Ppx: DVT-Heparin 5000u Q8H GI- not indicated Ascorbic acid 250mg PO daily Case discussed and all management as per Dr. Ceron. Analilia Baron, PGY-1.
[2018-05-10] MEDS: (Novolog) Insulin Aspart, Recombinant 100 u/ml 10 ml vial SC SCH ×2 (17:47→22:27)
--- NOTE | 2018-05-10 17:49 | CP.PCM.PN ---
Subjective - Date & Time of Evaluation Date of Evaluation: 05/10/18 Time of Evaluation: 14:00 Objective - Vital Signs/Intake and Output Vital Signs (last 24 hours): Temp Pulse Resp BP Pulse Ox 98.1 F 83 18 114/38 L 100 05/10/18 15:00 05/10/18 17:40 05/10/18 17:40 05/10/18 17:23 05/10/18 17:30 Intake and Output: 05/10/18 05/10/18 06:59 18:59 Intake Total 50 Balance 50 - Medications Medications: Current Medications Acetaminophen (Tylenol 325mg Tab) 650 mg PO Q4H PRN PRN Reason: Pain, Mild (1-3) Albuterol/Ipratropium (Combivent Respimat) 2 puff INH BID PRN PRN Reason: Shortness of Breath Albuterol/Ipratropium (Duoneb 3 Mg/0.5 Mg (3 Ml) Ud) 3 ml INH RQ6 [facility] Ascorbic Acid (Vitamin C 250 Mg Tab) 250 mg PO DAILY [facility] Dextrose (Dextrose 50% Inj) 0 ml IV STAT PRN; Protocol PRN Reason: Hypoglycemia Protocol Dextrose (Glutose 15) 0 gm PO ONCE PRN; Protocol PRN Reason: Hypoglycemia Protocol Gabapentin (Neurontin) 100 mg PO TID [facility] Glucagon (Glucagen Diagnostic Kit) 0 mg IM STAT PRN; Protocol PRN Reason: Hypoglycemia Protocol Dextrose (Dextrose 5% In Water 1000 Ml) 1,000 mls @ 0 mls/hr IV .Q0M PRN; Pro tocol PRN Reason: Hypoglycemia Protocol Aztreonam 500 mg/ Sodium (Chloride) 50 mls @ 100 mls/hr IVPB Q12H [facility]; Protocol Metronidazole (Flagyl) 250 mg in 50 mls @ 100 mls/hr IVPB Q8H [facility]; Protocol Insulin Aspart (Novolog) 0 unit SC ACHS [facility]; Protocol Last Admin: 05/10/18 17:47 Dose: Not Given Insulin Glargine (Lantus) 10 unit SC HS [facility] Mirtazapine (Remeron) 7.5 mg PO HS [facility] Rosuvastatin Calcium (Crestor) 5 mg PO HS [facility] - Labs Labs: 05/10/18 08:24 05/10/18 09:06 PT 12.9 SECONDS (9.7-12.2) H 05/10/18 08:24 INR 1.2 05/10/18 08:24 APTT 36 SECONDS (21-34) H 05/10/18 08:24
--- NOTE | 2018-05-10 18:30 | CP.PCM.CON ---
History of Present Illness - History of Present Illness History of Present Illness: pt is seen and examined, full consult is dictated #[id number] 1. ESRD 2. Hypotension 3. fever, r/o urosepsis 4. DM for hd in am check urine c/s, blood c/s c/w iv abx case d/w icu resident start ivf d51/2 ns at 40 ml/hr Past Patient History - Infectious Disease Hx of Infectious Diseases: None - Past Medical History & Family History Past Medical History?: Yes - Past Social History Smoking Status: Former Smoker - CARDIAC Hx Cardiac Disorders: Yes Hx Cardia Arrhythmia: ([id number] syndrom) Hx Hypercholesterolemia: Yes Hx Hypertension: Yes Hx Peripheral Edema: Yes - PULMONARY Hx Respiratory Disorders: Yes Hx Asthma: Yes Hx Chronic Obstructive Pulmonary Disease (COPD): Yes (ASTHMA,) Hx Emphysema: Yes Hx Pneumonia: Yes - NEUROLOGICAL Hx Neurological Disorder: Yes HX Cerebrovascular Accident: Yes - HEENT Hx HEENT Problems: Yes (WEARS RX GLASSES) Hx Blind: No Hx Cataracts: No Hx Deafness: No Hx Difficulty Chewing: No Hx Epistaxis: No Hx Glaucoma: Yes Hx Macular Degeneration: No Other/Comment: TOP & BOTTOM DENTURES - RENAL Hx Chronic Kidney Disease: Yes Hx Dialysis: Yes Type of Dialysis Access: Right chest permacath Date of Last Dialysis Treatment: 05/08/18 - ENDOCRINE/METABOLIC Hx Endocrine Disorders: Yes Hx Diabetes Mellitus Type 2: Yes - HEMATOLOGICAL/ONCOLOGICAL Hx Blood Disorders: Yes Hx Anemia: Yes - INTEGUMENTARY Hx Dermatological Problems: Yes Other/Comment: notes from last pt visit/previous triage:redness under both breasts and b/l abd folds, healed skin to buttocks and sacrum - MUSCULOSKELETAL/RHEUMATOLOGICAL Hx Falls: No - GASTROINTESTINAL Hx Gastrointestinal Disorders: Yes Hx Gastroesophageal Reflux: Yes Other/Comment: obesity - GENITOURINARY/GYNECOLOGICAL Hx Genitourinary Disorders: Yes Hx Hematuria: No Hx Incontinence: Yes Hx Urinary Tract Infection: Yes Other/Comment: pylonephritis - PSYCHIATRIC Hx Psychophysiologic Disorder: Yes Hx Anxiety: Yes Hx Depression: Yes Hx Substance Use: No - SURGICAL HISTORY Hx Surgeries: Yes Hx Amputation: Yes (BL BKA) - ANESTHESIA Hx Anesthesia: Yes Hx Anesthesia Reactions: No Hx Malignant Hyperthermia: No Has any member of the family had a problem w/ anesthesia?: No Meds Allergies/Adverse Reactions: Allergies Allergy/AdvReac Type Severity Reaction Status Date / Time cilastatin sodium Allergy RASH Verified 04/20/18 21:48 [From Primaxin] imipenem [From Primaxin] Allergy RASH Verified 04/20/18 21:48 oxycodone Allergy RASH Verified 04/20/18 21:48 cilastin Allergy unknown Uncoded 04/20/18 21:48 - Medications Medications: Current Medications Acetaminophen (Tylenol 325mg Tab) 650 mg PO Q4H PRN PRN Reason: Pain, Mild (1-3) Albuterol/Ipratropium (Combivent Respimat) 2 puff INH BID PRN PRN Reason: Shortness of Breath Albuterol/Ipratropium (Duoneb 3 Mg/0.5 Mg (3 Ml) Ud) 3 ml INH RQ6 [facility] Ascorbic Acid (Vitamin C 250 Mg Tab) 250 mg PO DAILY [facility] Dextrose (Dextrose 50% Inj) 0 ml IV STAT PRN; Protocol PRN Reason: Hypoglycemia Protocol Dextrose (Glutose 15) 0 gm PO ONCE PRN; Protocol PRN Reason: Hypoglycemia Protocol Gabapentin (Neurontin) 100 mg PO TID [facility] Last Admin: 05/10/18 18:05 Dose: 100 mg Glucagon (Glucagen Diagnostic Kit) 0 mg IM STAT PRN; Protocol PRN Reason: Hypoglycemia Protocol Dextrose (Dextrose 5% In Water 1000 Ml) 1,000 mls @ 0 mls/hr IV .Q0M PRN; Protocol PRN Reason: Hypoglycemia Protocol Aztreonam 500 mg/ Sodium (Chloride) 50 mls @ 100 mls/hr IVPB Q12H [facility]; Protocol Metronidazole (Flagyl) 250 mg in 50 mls @ 100 mls/hr IVPB Q8H [facility]; Protocol Insulin Aspart (Novolog) 0 unit SC ACHS [facility]; Protocol Last Admin: 05/10/18 17:47 Dose: Not Given Insulin Glargine (Lantus) 10 unit SC HS [facility] Mirtazapine (Remeron) 7.5 mg PO HS [facility] Rosuvastatin Calcium (Crestor) 5 mg PO HS [facility] Results - Vital Signs Recent Vital Signs: Last Vital Signs Temp 98.1 F 05/10/18 15:00 Pulse 83 05/10/18 17:40 Resp 18 05/10/18 17:40 BP 114/38 L 05/10/18 17:23 Pulse Ox 100 05/10/18 17:30 - Labs Result Diagrams: 05/10/18 08:24 05/10/18 09:06 Labs: Laboratory Results - last 24 hr 05/10/18 05/10/18 05/10/18 07:54 08:24 08:24 WBC 16.6 H RBC 4.13 Hgb 12.8 Hct 40.5 MCV 98.1 D MCH 31.0 MCHC 31.6 L RDW 17.5 H Plt Count 257 D MPV 10.4 Neut % (Auto) 79.7 H Lymph % (Auto) 10.5 L Barnes % (Auto) 8.6 Eos % (Auto) 0.8 Baso % (Auto) 0.4 Neut # (Auto) 13.3 H Lymph # (Auto) 1.7 Barnes # (Auto) 1.4 H Eos # (Auto) 0.1 Baso # (Auto) 0.1 PT 12.9 H INR 1.2 APTT 36 H Puncture Site pCO2 pO2 HCO3 ABG pH ABG Total CO2 ABG O2 Saturation ABG Base Excess ABG Hemoglobin ABG Carboxyhemoglobin POC ABG HHb (Measured) ABG Methemoglobin Rg Test VBG pH VBG pCO2 VBG HCO3 VBG Total CO2 VBG O2 Sat (Calc) VBG Base Excess VBG Potassium A-a O2 Difference Respiratory Index Hgb O2 Saturation Sodium Chloride Glucose Lactate FiO2 Potassium Carbon Dioxide Anion Gap BUN Creatinine Est GFR ( Amer) Est GFR (Non-Af Amer) POC Glucose (mg/dL) 156 H Random Glucose Calcium Phosphorus Magnesium Total Bilirubin AST ALT Alkaline Phosphatase Total Protein Albumin Globulin Albumin/Globulin Ratio Venous Blood Potassium Urine Color Urine Clarity Urine pH Ur Specific [place] Urine Protein Urine Glucose (UA) Urine Ketones Urine Blood Urine Nitrate Urine Bilirubin Urine Urobilinogen Ur Leukocyte Esterase Urine WBC (Auto) Urine RBC (Auto) Ur Squamous Epith Cells Urine Bacteria Influenza Typ A,B (EIA) 05/10/18 05/10/18 05/10/18 08:24 08:31 09:01 WBC RBC Hgb Hct MCV MCH MCHC RDW Plt Count MPV Neut % (Auto) Lymph % (Auto) [place] % (Auto) Eos % (Auto) Baso % (Auto) Neut # (Auto) Lymph # (Auto) Barnes # (Auto) Eos # (Auto) Baso # (Auto) PT INR APTT Puncture Site pCO2 pO2 26 L HCO3 ABG pH ABG Total CO2 ABG O2 Saturation ABG Base Excess ABG Hemoglobin ABG Carboxyhemoglobin POC ABG HHb (Measured) ABG Methemoglobin Rg Test VBG pH 7.28 L VBG pCO2 51 VBG HCO3 20.8 VBG Total CO2 25.6 VBG O2 Sat (Calc) 53.2 VBG Base Excess -3.3 L VBG Potassium 2.9 L A-a O2 Difference Respiratory Index Hgb O2 Saturation Sodium 140.0 Chloride 105.0 Glucose 160 H Lactate 1.7 FiO2 Potassium Carbon Dioxide Anion Gap BUN Creatinine Est GFR ( Amer) Est GFR (Non-Af Amer) POC Glucose (mg/dL) Random Glucose Calcium Phosphorus Magnesium Total Bilirubin AST ALT Alkaline Phosphatase Total Protein Albumin Globulin Albumin/Globulin Ratio Venous Blood Potassium 2.9 L Urine Color [place] Urine Clarity Turbid Urine pH 5.0 Ur Specific [place] 1.026 Urine Protein 2+ H Urine Glucose (UA) Normal Urine Ketones Negative Urine Blood 3+ H Urine Nitrate Negative Urine Bilirubin Negative Urine Urobilinogen Normal Ur Leukocyte Esterase 3+ H Urine WBC (Auto) 630 H Urine RBC (Auto) 510 H Ur Squamous Epith Cells 88 H Urine Bacteria Many H Influenza Typ A,B (EIA) Negative for flu a/b 05/10/18 05/10/18 05/10/18 09:05 09:06 11:33 WBC RBC Hgb Hct MCV MCH MCHC RDW Plt Count MPV Neut % (Auto) Lymph % (Auto) Barnes % (Auto) Eos % (Auto) Baso % (Auto) Neut # (Auto) Lymph # (Auto) Barnes # (Auto) Eos # (Auto) Baso # (Auto) PT INR APTT Puncture Site Lra pCO2 36 pO2 82 50 HCO3 20.0 L ABG pH 7.33 L ABG Total CO2 20.1 L ABG O2 Saturation 97.6 ABG Base Excess -6.3 L ABG Hemoglobin 11.8 ABG Carboxyhemoglobin 1.4 POC ABG HHb (Measured) 2.3 ABG Methemoglobin 0.9 Rg Test Pos VBG pH 7.30 L VBG pCO2 42 VBG HCO3 20.2 VBG Total CO2 22.0 VBG O2 Sat (Calc) 88.6 H VBG Base Excess -5.5 L VBG Potassium 3.9 A-a O2 Difference 23.0 Respiratory Index 0.3 Hgb O2 Saturation 95.4 Sodium 136 136.0 Chloride 101 105.0 Glucose 254 H Lactate 1.1 FiO2 21.0 Potassium 3.7 Carbon Dioxide 21 L Anion Gap 18 BUN 36 H Creatinine 4.6 H Est GFR ( Amer) 12 Est GFR (Non-Af Amer) 10 POC Glucose (mg/dL) Random Glucose 187 H Calcium 9.5 Phosphorus 2.3 L Magnesium 2.1 Total Bilirubin 0.7 AST 58 H D ALT 14 Alkaline Phosphatase 91 Total Protein 7.5 Albumin 3.4 L D Globulin 4.1 H Albumin/Globulin Ratio 0.8 L Venous Blood Potassium 3.9 Urine Color Urine Clarity Urine pH Ur Specific [place] Urine Protein Urine Glucose (UA) Urine Ketones Urine Blood Urine Nitrate Urine Bilirubin Urine Urobilinogen Ur Leukocyte Esterase Urine WBC (Auto) Urine RBC (Auto) Ur Squamous Epith Cells Urine Bacteria Influenza Typ A,B (EIA) 05/10/18 05/10/18 05/10/18 12:05 13:15 16:00 WBC RBC Hgb Hct MCV MCH MCHC RDW Plt Count MPV Neut % (Auto) Lymph % (Auto) Barnes % (Auto) Eos % (Auto) Baso % (Auto) Neut # (Auto) Lymph # (Auto) Barnes # (Auto) Eos # (Auto) Baso # (Auto) PT INR APTT Puncture Site pCO2 pO2 HCO3 ABG pH ABG Total CO2 ABG O2 Saturation ABG Base Excess ABG Hemoglobin ABG Carboxyhemoglobin POC ABG HHb (Measured) ABG Methemoglobin Rg Test VBG pH VBG pCO2 VBG HCO3 VBG Total CO2 VBG O2 Sat (Calc) VBG Base Excess VBG Potassium A-a O2 Difference Respiratory Index Hgb O2 Saturation Sodium Chloride Glucose Lactate FiO2 Potassium Carbon Dioxide Anion Gap BUN Creatinine Est GFR ( Amer) Est GFR (Non-Af Amer) POC Glucose (mg/dL) 240 H 266 H 227 H Random Glucose Calcium Phosphorus Magnesium Total Bilirubin AST ALT Alkaline Phosphatase Total Protein Albumin Globulin Albumin/Globulin Ratio Venous Blood Potassium Urine Color Urine Clarity Urine pH Ur Specific [place] Urine Protein Urine Glucose (UA) Urine Ketones Urine Blood Urine Nitrate Urine Bilirubin Urine Urobilinogen Ur Leukocyte Esterase Urine WBC (Auto) Urine RBC (Auto) Ur Squamous Epith Cells Urine Bacteria Influenza Typ A,B (EIA)
[2018-05-10] MEDS: Dextrose 5%/0.45% NS 1,000 ML IV SCH (19:27)
[2018-05-10] MEDS: Albuterol-Ipratrop 3 mg / 0.5 (3 ml) UD INH SCH (19:39)
--- NOTE | 2018-05-10 20:09 | CP.PCM.CON ---
History of Present Illness - History of Present Illness History of Present Illness: INFECTIOUS DISEASE CONSULT; PATIENT SEEN IN ICU; HX OBTAINED FROM THE CHART/AND STAFF. PATIENT IN SEPTIC SHOCK/OPENS EYES TO NAME, BUT NONVERBAL AT PRESENT. HPI; 63 year old female with PMHx of ESRD on HD TThS, DM 2, HTN, HLD, COPD, previous multi-drug resistant UTI brought to ED from [facility] for lethargy and hypotension admitted for UTI. PSYCHIATRIC MENTAL HEALTH NURSE called today for patient for hypotension 60/38. ICU was consulted for persistent hypotension despite 3L IV NS. Patient complains of suprapubic abdominal pain. Unable to obtain further history secondary to patient condition. History obtained via chart review. PATIENT ALSO REPORTED TO HAVE DIARRHEA AND WATERY STOOLS PER STAFFING ACCOUNT MANAGER.. PMHx: Anemia, Diabetes, HTN, Hyperlipidemia, glaucoma, peripheral neuropathy, COPD, aphasia, GERD, PVD, ESRD on HD TTS ([facility] dialysis [place]), Cardiac Arrhythmia ([id number] syndrome) Past Surgical History: Complete traumatic amputation at the knee level bilaterally, R permacath, L AV fistula with graft 2017 Medications: Acetylcysteine solution 20% inh Q6H, Asa 81mg, carvedilol 25mg daily, Ipratropium-albuterol 2 puff BID, Crestor 10mg daily, Dilaudid 0.5mg Q4H PRN moderate pain, Dilaudid 1mg Q4H PRN severe pain, famotidine 20mg Q4H, Gabapentin 100mg TID, Humalog 6 u sc before meals non-dialysis days, 100 u BID on dialysis days, hydralazine 20mg Q6H, Duoneb BID, Lantus 10mg sc HS, mylanta 30ml PO Q4H PRN, Novolin sliding scale. Remeron 15mg HS, Silvadene Cream 1% behind left buttock and thigh BID, Tylenol 325 Q4H PRN mild pain Allergies: Oxycodone, cilastin, imipenem,PATIENT TOLERATED AZACTAM WITHOUT ANY SIDE EFFECTS AT 9:40 am IN THE ER Family History:unable to obtain Social: Patient lives in [facility]irement, [facility]. Denies tobacco, alcohol, drugs. PMD: Dr. Lisset Bee, as per [facility] records Review of Systems - Review of Systems Systems not reviewed;Unavailable: Altered Mental Status All systems: reviewed and no additional remarkable complaints except (PATIENT DOES NOT HAVE A [place] CATHETER. ESRD.) Past Patient History - Infectious Disease Hx of Infectious Diseases: None - Past Medical History & Family History Past Medical History?: Yes - Past Social History Smoking Status: Former Smoker - CARDIAC Hx Cardiac Disorders: Yes Hx Cardia Arrhythmia: ([id number] syndrom) Hx Hypercholesterolemia: Yes Hx Hypertension: Yes Hx Peripheral Edema: Yes - PULMONARY Hx Respiratory Disorders: Yes Hx Asthma: Yes Hx Chronic Obstructive Pulmonary Disease (COPD): Yes (ASTHMA,) Hx Emphysema: Yes Hx Pneumonia: Yes - NEUROLOGICAL Hx Neurological Disorder: Yes HX Cerebrovascular Accident: Yes - HEENT Hx HEENT Problems: Yes (WEARS RX GLASSES) Hx Blind: No Hx Cataracts: No Hx Deafness: No Hx Difficulty Chewing: No Hx Epistaxis: No Hx Glaucoma: Yes Hx Macular Degeneration: No Other/Comment: TOP & BOTTOM DENTURES - RENAL Hx Chronic Kidney Disease: Yes Hx Dialysis: Yes Type of Dialysis Access: Right chest permacath Date of Last Dialysis Treatment: 05/08/18 - ENDOCRINE/METABOLIC Hx Endocrine Disorders: Yes Hx Diabetes Mellitus Type 2: Yes - HEMATOLOGICAL/ONCOLOGICAL Hx Blood Disorders: Yes Hx Anemia: Yes - INTEGUMENTARY Hx Dermatological Problems: Yes Other/Comment: notes from last pt visit/previous triage:redness under both breasts and b/l abd folds, healed skin to buttocks and sacrum - MUSCULOSKELETAL/RHEUMATOLOGICAL Hx Falls: No - GASTROINTESTINAL Hx Gastrointestinal Disorders: Yes Hx Gastroesophageal Reflux: Yes Other/Comment: obesity - GENITOURINARY/GYNECOLOGICAL Hx Genitourinary Disorders: Yes Hx Hematuria: No Hx Incontinence: Yes Hx Urinary Tract Infection: Yes Other/Comment: pylonephritis - PSYCHIATRIC Hx Psychophysiologic Disorder: Yes Hx Anxiety: Yes Hx Depression: Yes Hx Substance Use: No - SURGICAL HISTORY Hx Surgeries: Yes Hx Amputation: Yes (BL BKA) - ANESTHESIA Hx Anesthesia: Yes Hx Anesthesia Reactions: No Hx Malignant Hyperthermia: No Has any member of the family had a problem w/ anesthesia?: No Meds Allergies/Adverse Reactions: Allergies Allergy/AdvReac Type Severity Reaction Status Date / Time cilastatin sodium Allergy RASH Verified 04/20/18 21:48 [From Primaxin] imipenem [From Primaxin] Allergy RASH Verified 04/20/18 21:48 oxycodone Allergy RASH Verified 11/27/18 21:48 cilastin Allergy unknown Uncoded 04/20/18 21:48 - Medications Medications: Current Medications Acetaminophen (Tylenol 325mg Tab) 650 mg PO Q4H PRN PRN Reason: Pain, Mild (1-3) Albuterol/Ipratropium (Combivent Respimat) 2 puff INH BID PRN PRN Reason: Shortness of Breath Albuterol/Ipratropium (Duoneb 3 Mg/0.5 Mg (3 Ml) Ud) 3 ml INH RQ6 [facility] Ascorbic Acid (Vitamin C 250 Mg Tab) 250 mg PO DAILY [facility] Dextrose (Dextrose 50% Inj) 0 ml IV STAT PRN; Protocol PRN Reason: Hypoglycemia Protocol Dextrose (Glutose 15) 0 gm PO ONCE PRN; Protocol PRN Reason: Hypoglycemia Protocol Gabapentin (Neurontin) 100 mg PO TID [facility] Last Admin: 05/10/18 18:05 Dose: 100 mg Glucagon (Glucagen Diagnostic Kit) 0 mg IM STAT PRN; Protocol PRN Reason: Hypoglycemia Protocol Heparin Sodium (Porcine) (Heparin) 5,000 units SC Q8 [facility] Dextrose (Dextrose 5% In Water 1000 Ml) 1,000 mls @ 0 mls/hr IV .Q0M PRN; Protocol PRN Reason: Hypoglycemia Protocol Aztreonam 500 mg/ Sodium (Chloride) 50 mls @ 100 mls/hr IVPB Q12H [facility]; Protocol Metronidazole (Flagyl) 250 mg in 50 mls @ 100 mls/hr IVPB Q8H [facility]; Protocol Dextrose/Sodium Chloride (Dextrose 5%/0.45% Ns 1000 Ml) 1,000 mls @ 40 mls/hr IV .Q24H [facility] Last Admin: 05/10/18 19:27 Dose: 40 mls/hr Insulin Aspart (Novolog) 0 unit SC ACHS [facility]; Protocol Last Admin: 05/10/18 17:47 Dose: Not Given Insulin Glargine (Lantus) 10 unit SC HS [facility] Mirtazapine (Remeron) 7.5 mg PO HS [facility] Rosuvastatin Calcium (Crestor) 5 mg PO HS [facility] Physical Exam - Constitutional Appears: In Acute Distress - Head Exam Head Exam: NORMAL INSPECTION - Eye Exam Eye Exam: PERRL - ENT Exam ENT Exam: Mucous Membranes Dry - Neck Exam Neck exam: Positive for: Normal Inspection. Negative for: Meningismus - Respiratory Exam Respiratory Exam: Decreased Breath Sounds, NORMAL BREATHING PATTERN - Cardiovascular Exam Cardiovascular Exam: Tachycardia, REGULAR RHYTHM, +S1, +S2 - GI/Abdominal Exam GI & Abdominal Exam: Normal Bowel Sounds, Soft, Tenderness (qUESTIONABLE SUPRAPUBIC MENTIONED BEFORE IN HISTORY. pATIENT UNABLE TO RESPOND TO PAINFUL STIMULI.) - Extremities Exam Additional comments: BILATERAL ABOVE-KNEE AMPUTATION. - Neurological Exam Neurological exam: Altered, CN II-XII Intact (OPENS EYES TO STIMULI. UNABLE TO EXAMINE ) Results - Vital Signs Recent Vital Signs: Last Vital Signs Temp 98.1 F 05/10/18 15:00 Pulse 83 05/10/18 17:40 Resp 18 05/10/18 17:40 BP 114/38 L 05/10/18 17:23 Pulse Ox 100 05/10/18 17:30 - Labs Result Diagrams: 05/10/18 08:24 05/10/18 09:06 Labs: Laboratory Results - last 24 hr 05/10/18 05/10/18 05/10/18 07:54 08:24 08:24 WBC 16.6 H RBC 4.13 Hgb 12.8 Hct 40.5 MCV 98.1 D MCH 31.0 MCHC 31.6 L RDW 17.5 H Plt Count 257 D MPV 10.4 Neut % (Auto) 79.7 H Lymph % (Auto) 10.5 L [place] % (Auto) 8.6 Eos % (Auto) 0.8 Baso % (Auto) 0.4 Neut # (Auto) 13.3 H Lymph # (Auto) 1.7 [place] # (Auto) 1.4 H Eos # (Auto) 0.1 Baso # (Auto) 0.1 PT 12.9 H INR 1.2 APTT 36 H Puncture Site pCO2 pO2 HCO3 ABG pH ABG Total CO2 ABG O2 Saturation ABG Base Excess ABG Hemoglobin ABG Carboxyhemoglobin POC ABG HHb (Measured) ABG Methemoglobin Rg Test VBG pH VBG pCO2 VBG HCO3 VBG Total CO2 VBG O2 Sat (Calc) VBG Base Excess VBG Potassium A-a O2 Difference Respiratory Index Hgb O2 Saturation Sodium Chloride Glucose Lactate FiO2 Potassium Carbon Dioxide Anion Gap BUN Creatinine Est GFR ( Amer) Est GFR (Non-Af Amer) POC Glucose (mg/dL) 156 H Random Glucose Calcium Phosphorus Magnesium Total Bilirubin AST ALT Alkaline Phosphatase Total Protein Albumin Globulin Albumin/Globulin Ratio Venous Blood Potassium Urine Color Urine Clarity Urine pH Ur Specific [place] Urine Protein Urine Glucose (UA) Urine Ketones Urine Blood Urine Nitrate Urine Bilirubin Urine Urobilinogen Ur Leukocyte Esterase Urine WBC (Auto) Urine RBC (Auto) Ur Squamous Epith Cells Urine Bacteria Influenza Typ A,B (EIA) 05/10/18 05/10/18 05/10/18 08:24 08:31 09:01 WBC RBC Hgb Hct MCV MCH MCHC RDW Plt Count MPV Neut % (Auto) Lymph % (Auto) [place] % (Auto) Eos % (Auto) Baso % (Auto) Neut # (Auto) Lymph # (Auto) [place] # (Auto) Eos # (Auto) Baso # (Auto) PT INR APTT Puncture Site pCO2 pO2 26 L HCO3 ABG pH ABG Total CO2 ABG O2 Saturation ABG Base Excess ABG Hemoglobin ABG Carboxyhemoglobin POC ABG HHb (Measured) ABG Methemoglobin Rg Test VBG pH 7.28 L VBG pCO2 51 VBG HCO3 20.8 VBG Total CO2 25.6 VBG O2 Sat (Calc) 53.2 VBG Base Excess -3.3 L VBG Potassium 2.9 L A-a O2 Difference Respiratory Index Hgb O2 Saturation Sodium 140.0 Chloride 105.0 Glucose 160 H Lactate 1.7 FiO2 Potassium Carbon Dioxide Anion Gap BUN Creatinine Est GFR ( Amer) Est GFR (Non-Af Amer) POC Glucose (mg/dL) Random Glucose Calcium Phosphorus Magnesium Total Bilirubin AST ALT Alkaline Phosphatase Total Protein Albumin Globulin Albumin/Globulin Ratio Venous Blood Potassium 2.9 L Urine Color [place] Urine Clarity Turbid Urine pH 5.0 Ur Specific [place] 1.026 Urine Protein 2+ H Urine Glucose (UA) Normal Urine Ketones Negative Urine Blood 3+ H Urine Nitrate Negative Urine Bilirubin Negative Urine Urobilinogen Normal Ur Leukocyte Esterase 3+ H Urine WBC (Auto) 630 H Urine RBC (Auto) 510 H Ur Squamous Epith Cells 88 H Urine Bacteria Many H Influenza Typ A,B (EIA) Negative for flu a/b 05/10/18 05/10/18 05/10/18 09:05 09:06 11:33 WBC RBC Hgb Hct MCV MCH MCHC RDW Plt Count MPV Neut % (Auto) Lymph % (Auto) [place] % (Auto) Eos % (Auto) Baso % (Auto) Neut # (Auto) Lymph # (Auto) [place] # (Auto) Eos # (Auto) Baso # (Auto) PT INR APTT Puncture Site Lra pCO2 36 pO2 82 50 HCO3 20.0 L ABG pH 7.33 L ABG Total CO2 20.1 L ABG O2 Saturation 97.6 ABG Base Excess -6.3 L ABG Hemoglobin 11.8 ABG Carboxyhemoglobin 1.4 POC ABG HHb (Measured) 2.3 ABG Methemoglobin 0.9 Rg Test Pos VBG pH 7.30 L VBG pCO2 42 VBG HCO3 20.2 VBG Total CO2 22.0 VBG O2 Sat (Calc) 88.6 H VBG Base Excess -5.5 L VBG Potassium 3.9 A-a O2 Difference 23.0 Respiratory Index 0.3 Hgb O2 Saturation 95.4 Sodium 136 136.0 Chloride 101 105.0 Glucose 254 H Lactate 1.1 FiO2 21.0 Potassium 3.7 Carbon Dioxide 21 L Anion Gap 18 BUN 36 H Creatinine 4.6 H Est GFR ( Amer) 12 Est GFR (Non-Af Amer) 10 POC Glucose (mg/dL) Random Glucose 187 H Calcium 9.5 Phosphorus 2.3 L Magnesium 2.1 Total Bilirubin 0.7 AST 58 H D ALT 14 Alkaline Phosphatase 91 Total Protein 7.5 Albumin 3.4 L D Globulin 4.1 H Albumin/Globulin Ratio 0.8 L Venous Blood Potassium 3.9 Urine Color Urine Clarity Urine pH Ur Specific [place] Urine Protein Urine Glucose (UA) Urine Ketones Urine Blood Urine Nitrate Urine Bilirubin Urine Urobilinogen Ur Leukocyte Esterase Urine WBC (Auto) Urine RBC (Auto) Ur Squamous Epith Cells Urine Bacteria Influenza Typ A,B (EIA) 05/10/18 05/10/18 05/10/18 12:05 13:15 16:00 WBC RBC Hgb Hct MCV MCH MCHC RDW Plt Count MPV Neut % (Auto) Lymph % (Auto) [place] % (Auto) Eos % (Auto) Baso % (Auto) Neut # (Auto) Lymph # (Auto) [place] # (Auto) Eos # (Auto) Baso # (Auto) PT INR APTT Puncture Site pCO2 pO2 HCO3 ABG pH ABG Total CO2 ABG O2 Saturation ABG Base Excess ABG Hemoglobin ABG Carboxyhemoglobin POC ABG HHb (Measured) ABG Methemoglobin Rg Test VBG pH VBG pCO2 VBG HCO3 VBG Total CO2 VBG O2 Sat (Calc) VBG Base Excess VBG Potassium A-a O2 Difference Respiratory Index Hgb O2 Saturation Sodium Chloride Glucose Lactate FiO2 Potassium Carbon Dioxide Anion Gap BUN Creatinine Est GFR ( Amer) Est GFR (Non-Af Amer) POC Glucose (mg/dL) 240 H 266 H 227 H Random Glucose Calcium Phosphorus Magnesium Total Bilirubin AST ALT Alkaline Phosphatase Total Protein Albumin Globulin Albumin/Globulin Ratio Venous Blood Potassium Urine Color Urine Clarity Urine pH Ur Specific [place] Urine Protein Urine Glucose (UA) Urine Ketones Urine Blood Urine Nitrate Urine Bilirubin Urine Urobilinogen Ur Leukocyte Esterase Urine WBC (Auto) Urine RBC (Auto) Ur Squamous Epith Cells Urine Bacteria Influenza Typ A,B (EIA) - Imaging and Cardiology Chest x-ray Status: Report reviewed by me (NO ACTIVE DISEASE.) Assessment & Plan (1) Septic shock Assessment and Plan: panculture UA urine culture stat Diarrhea workup IV antibiotics as ordered. Follow-up cultures to adjust antibiotics Case discussed with the resident- dr Billingsley. Status: Acute (2) UTI (lower urinary tract infection) Assessment and Plan: patient has HX OF +ESBL E.COLI/ AND ESBL+VE KLEIBSIELLA PN. S- MERREM.BACTRIM,GENTAMICI. PATIENT ALLERGIC TO PENICILLIN. TOLERATED iv AZACTAM IN THE ER WITHOUT ANY RASH OR SIDE EFFECTS. PLAN; CONTINUE iv aZACTAM 500 MG EVERY 12 HOURLY FOR NOW .05/10/18. Status: Acute (3) Diarrhea Assessment and Plan: PATIENT ALSO HAS DIARRHEA. STOOLS FOR c. DIFFICILE TOXIN.-P AGREE WITH STARTING iv fLAGYL 250 MG IVPB EVERY 8 HOURLY. STOOLS FOR LEUKOCYTES AND CULTURE. Status: Resolved (4) ESRD (end stage renal disease) on dialysis Assessment and Plan: patient on hemodialysis TTS. Status: Chronic (5) S/P AKA (above knee amputation) bilateral Status: Acute
--- NOTE | 2018-05-10 21:02 | CP.PCM.HP ---
Past Patient History - Infectious Disease Hx of Infectious Diseases: None - Past Medical History & Family History Past Medical History?: Yes - Past Social History Smoking Status: Former Smoker - CARDIAC Hx Cardiac Disorders: Yes Hx Cardia Arrhythmia: ([id number]) Hx Hypercholesterolemia: Yes Hx Hypertension: Yes Hx Peripheral Edema: Yes - PULMONARY Hx Respiratory Disorders: Yes Hx Asthma: Yes Hx Chronic Obstructive Pulmonary Disease (COPD): Yes (ASTHMA,) Hx Emphysema: Yes Hx Pneumonia: Yes - NEUROLOGICAL Hx Neurological Disorder: Yes HX Cerebrovascular Accident: Yes - HEENT Hx HEENT Problems: Yes (WEARS RX GLASSES) Hx Blind: No Hx Cataracts: No Hx Deafness: No Hx Difficulty Chewing: No Hx Epistaxis: No Hx Glaucoma: Yes Hx Macular Degeneration: No Other/Comment: TOP & BOTTOM DENTURES - RENAL Hx Chronic Kidney Disease: Yes Hx Dialysis: Yes Type of Dialysis Access: Right chest permacath Date of Last Dialysis Treatment: 05/08/18 - ENDOCRINE/METABOLIC Hx Endocrine Disorders: Yes Hx Diabetes Mellitus Type 2: Yes - HEMATOLOGICAL/ONCOLOGICAL Hx Blood Disorders: Yes Hx Anemia: Yes - INTEGUMENTARY Hx Dermatological Problems: Yes Other/Comment: notes from last pt visit/previous triage:redness under both breasts and b/l abd folds, healed skin to buttocks and sacrum - MUSCULOSKELETAL/RHEUMATOLOGICAL Hx Falls: No - GASTROINTESTINAL Hx Gastrointestinal Disorders: Yes Hx Gastroesophageal Reflux: Yes Other/Comment: obesity - GENITOURINARY/GYNECOLOGICAL Hx Genitourinary Disorders: Yes Hx Hematuria: No Hx Incontinence: Yes Hx Urinary Tract Infection: Yes Other/Comment: pylonephritis - PSYCHIATRIC Hx Psychophysiologic Disorder: Yes Hx Anxiety: Yes Hx Depression: Yes Hx Substance Use: No - SURGICAL HISTORY Hx Surgeries: Yes Hx Amputation: Yes (BL BKA) - ANESTHESIA Hx Anesthesia: Yes Hx Anesthesia Reactions: No Hx Malignant Hyperthermia: No Has any member of the family had a problem w/ anesthesia?: No Meds Allergies/Adverse Reactions: Allergies Allergy/AdvReac Type Severity Reaction Status Date / Time cilastatin sodium Allergy RASH Verified 04/20/18 21:48 [From Primaxin] imipenem [From Primaxin] Allergy RASH Verified 04/20/18 21:48 oxycodone Allergy RASH Verified 04/20/18 21:48 cilastin Allergy unknown Uncoded 04/20/18 21:48 Results - Vital Signs Recent Vital Signs: Last Vital Signs Temp 97.5 F L 12/17/18 17:00 Pulse 84 05/10/18 20:10 Resp 13 05/10/18 20:10 BP 99/35 L 05/10/18 19:51 Pulse Ox 100 05/10/18 20:00 - Labs Result Diagrams: 05/10/18 08:24 05/10/18 09:06 Labs: Laboratory Results - last 24 hr 05/10/18 05/10/18 05/10/18 07:54 08:24 08:24 WBC 16.6 H RBC 4.13 Hgb 12.8 Hct 40.5 MCV 98.1 D MCH 31.0 MCHC 31.6 L RDW 17.5 H Plt Count 257 D MPV 10.4 Neut % (Auto) 79.7 H Lymph % (Auto) 10.5 L [place] % (Auto) 8.6 Eos % (Auto) 0.8 Baso % (Auto) 0.4 Neut # (Auto) 13.3 H Lymph # (Auto) 1.7 [place] # (Auto) 1.4 H Eos # (Auto) 0.1 Baso # (Auto) 0.1 PT 12.9 H INR 1.2 APTT 36 H Puncture Site pCO2 pO2 HCO3 ABG pH ABG Total CO2 ABG O2 Saturation ABG Base Excess ABG Hemoglobin ABG Carboxyhemoglobin POC ABG HHb (Measured) ABG Methemoglobin Rg Test VBG pH VBG pCO2 VBG HCO3 VBG Total CO2 VBG O2 Sat (Calc) VBG Base Excess VBG Potassium A-a O2 Difference Respiratory Index Hgb O2 Saturation Sodium Chloride Glucose Lactate FiO2 Potassium Carbon Dioxide Anion Gap BUN Creatinine Est GFR ( Amer) Est GFR (Non-Af Amer) POC Glucose (mg/dL) 156 H Random Glucose Calcium Phosphorus Magnesium Total Bilirubin AST ALT Alkaline Phosphatase Total Protein Albumin Globulin Albumin/Globulin Ratio Venous Blood Potassium Urine Color Urine Clarity Urine pH Ur Specific [place] Urine Protein Urine Glucose (UA) Urine Ketones Urine Blood Urine Nitrate Urine Bilirubin Urine Urobilinogen Ur Leukocyte Esterase Urine WBC (Auto) Urine RBC (Auto) Ur Squamous Epith Cells Urine Bacteria C. difficile Ag & Toxin Influenza Typ A,B (EIA) 05/10/18 05/10/18 05/10/18 08:24 08:31 09:01 WBC RBC Hgb Hct MCV MCH MCHC RDW Plt Count MPV Neut % (Auto) Lymph % (Auto) [place] % (Auto) Eos % (Auto) Baso % (Auto) Neut # (Auto) Lymph # (Auto) [place] # (Auto) Eos # (Auto) Baso # (Auto) PT INR APTT Puncture Site pCO2 pO2 26 L HCO3 ABG pH ABG Total CO2 ABG O2 Saturation ABG Base Excess ABG Hemoglobin ABG Carboxyhemoglobin POC ABG HHb (Measured) ABG Methemoglobin Rg Test VBG pH 7.28 L VBG pCO2 51 VBG HCO3 20.8 VBG Total CO2 25.6 VBG O2 Sat (Calc) 53.2 VBG Base Excess -3.3 L VBG Potassium 2.9 L A-a O2 Difference Respiratory Index Hgb O2 Saturation Sodium 140.0 Chloride 105.0 Glucose 160 H Lactate 1.7 FiO2 Potassium Carbon Dioxide Anion Gap BUN Creatinine Est GFR ( Amer) Est GFR (Non-Af Amer) POC Glucose (mg/dL) Random Glucose Calcium Phosphorus Magnesium Total Bilirubin AST ALT Alkaline Phosphatase Total Protein Albumin Globulin Albumin/Globulin Ratio Venous Blood Potassium 2.9 L Urine Color [place] Urine Clarity Turbid Urine pH 5.0 Ur Specific [place] 1.026 Urine Protein 2+ H Urine Glucose (UA) Normal Urine Ketones Negative Urine Blood 3+ H Urine Nitrate Negative Urine Bilirubin Negative Urine Urobilinogen Normal Ur Leukocyte Esterase 3+ H Urine WBC (Auto) 630 H Urine RBC (Auto) 510 H Ur Squamous Epith Cells 88 H Urine Bacteria Many H C. difficile Ag & Toxin Influenza Typ A,B (EIA) Negative for flu a/b 05/10/18 05/10/18 05/10/18 09:05 09:06 11:33 WBC RBC Hgb Hct MCV MCH MCHC RDW Plt Count MPV Neut % (Auto) Lymph % (Auto) [place] % (Auto) Eos % (Auto) Baso % (Auto) Neut # (Auto) Lymph # (Auto) [place] # (Auto) Eos # (Auto) Baso # (Auto) PT INR APTT Puncture Site Lra pCO2 36 pO2 82 50 HCO3 20.0 L ABG pH 7.33 L ABG Total CO2 20.1 L ABG O2 Saturation 97.6 ABG Base Excess -6.3 L ABG Hemoglobin 11.8 ABG Carboxyhemoglobin 1.4 POC ABG HHb (Measured) 2.3 ABG Methemoglobin 0.9 Rg Test Pos VBG pH 7.30 L VBG pCO2 42 VBG HCO3 20.2 VBG Total CO2 22.0 VBG O2 Sat (Calc) 88.6 H VBG Base Excess -5.5 L VBG Potassium 3.9 A-a O2 Difference 23.0 Respiratory Index 0.3 Hgb O2 Saturation 95.4 Sodium 136 136.0 Chloride 101 105.0 Glucose 254 H Lactate 1.1 FiO2 21.0 Potassium 3.7 Carbon Dioxide 21 L Anion Gap 18 BUN 36 H Creatinine 4.6 H Est GFR ( Amer) 12 Est GFR (Non-Af Amer) 10 POC Glucose (mg/dL) Random Glucose 187 H Calcium 9.5 Phosphorus 2.3 L Magnesium 2.1 Total Bilirubin 0.7 AST 58 H D ALT 14 Alkaline Phosphatase 91 Total Protein 7.5 Albumin 3.4 L D Globulin 4.1 H Albumin/Globulin Ratio 0.8 L Venous Blood Potassium 3.9 Urine Color Urine Clarity Urine pH Ur Specific [place] Urine Protein Urine Glucose (UA) Urine Ketones Urine Blood Urine Nitrate Urine Bilirubin Urine Urobilinogen Ur Leukocyte Esterase Urine WBC (Auto) Urine RBC (Auto) Ur Squamous Epith Cells Urine Bacteria C. difficile Ag & Toxin Influenza Typ A,B (EIA) 05/10/18 05/10/18 05/10/18 12:05 13:15 16:00 WBC RBC Hgb Hct MCV MCH MCHC RDW Plt Count MPV Neut % (Auto) Lymph % (Auto) [place] % (Auto) Eos % (Auto) Baso % (Auto) Neut # (Auto) Lymph # (Auto) [place] # (Auto) Eos # (Auto) Baso # (Auto) PT INR APTT Puncture Site pCO2 pO2 HCO3 ABG pH ABG Total CO2 ABG O2 Saturation ABG Base Excess ABG Hemoglobin ABG Carboxyhemoglobin POC ABG HHb (Measured) ABG Methemoglobin Rg Test VBG pH VBG pCO2 VBG HCO3 VBG Total CO2 VBG O2 Sat (Calc) VBG Base Excess VBG Potassium A-a O2 Difference Respiratory Index Hgb O2 Saturation Sodium Chloride Glucose Lactate FiO2 Potassium Carbon Dioxide Anion Gap BUN Creatinine Est GFR ( Amer) Est GFR (Non-Af Amer) POC Glucose (mg/dL) 240 H 266 H 227 H Random Glucose Calcium Phosphorus Magnesium Total Bilirubin AST ALT Alkaline Phosphatase Total Protein Albumin Globulin Albumin/Globulin Ratio Venous Blood Potassium Urine Color Urine Clarity Urine pH Ur Specific [place] Urine Protein Urine Glucose (UA) Urine Ketones Urine Blood Urine Nitrate Urine Bilirubin Urine Urobilinogen Ur Leukocyte Esterase Urine WBC (Auto) Urine RBC (Auto) Ur Squamous Epith Cells Urine Bacteria C. difficile Ag & Toxin Influenza Typ A,B (EIA) 05/10/18 19:55 WBC RBC Hgb Hct MCV MCH MCHC RDW Plt Count MPV Neut % (Auto) Lymph % (Auto) [place] % (Auto) Eos % (Auto) Baso % (Auto) Neut # (Auto) Lymph # (Auto) [place] # (Auto) Eos # (Auto) Baso # (Auto) PT INR APTT Puncture Site pCO2 pO2 HCO3 ABG pH ABG Total CO2 ABG O2 Saturation ABG Base Excess ABG Hemoglobin ABG Carboxyhemoglobin POC ABG HHb (Measured) ABG Methemoglobin Rg Test VBG pH VBG pCO2 VBG HCO3 VBG Total CO2 VBG O2 Sat (Calc) VBG Base Excess VBG Potassium A-a O2 Difference Respiratory Index Hgb O2 Saturation Sodium Chloride Glucose Lactate FiO2 Potassium Carbon Dioxide Anion Gap BUN Creatinine Est GFR ( Amer) Est GFR (Non-Af Amer) POC Glucose (mg/dL) Random Glucose Calcium Phosphorus Magnesium Total Bilirubin AST ALT Alkaline Phosphatase Total Protein Albumin Globulin Albumin/Globulin Ratio Venous Blood Potassium Urine Color Urine Clarity Urine pH Ur Specific [place] Urine Protein Urine Glucose (UA) Urine Ketones Urine Blood Urine Nitrate Urine Bilirubin Urine Urobilinogen Ur Leukocyte Esterase Urine WBC (Auto) Urine RBC (Auto) Ur Squamous Epith Cells Urine Bacteria C. difficile Ag & Toxin Negative Influenza Typ A,B (EIA)
[2018-05-10] MEDS: (Lantus) Insulin Glargine, Recombinant SC SCH (22:24)
[2018-05-10] MEDS: metroNIDAZOLE IV 250mg/50 ml 250 MG/50 ML BAG IVPB SCH (22:27)
[2018-05-11] MEDS: Albuterol-Ipratrop 3 mg / 0.5 (3 ml) UD INH SCH ×4 (01:53→20:53)
[2018-05-11 06:24] LABS: ALB/GLOB RATIO 0.8 (1.0-2.1)
[2018-05-11] MEDS: metroNIDAZOLE IV 250mg/50 ml 250 MG/50 ML BAG IVPB SCH ×3 (06:38→21:18)
[2018-05-11] MEDS: (Novolog) Insulin Aspart, Recombinant 100 u/ml 10 ml vial SC SCH ×4 (07:45→22:38)
--- NOTE | 2018-05-11 07:50 | CP.CCUPN ---
<Analilia Baron P - Last Filed: 05/11/18 13:16> CCU Subjective - Physician Review Subjective (Free Text): ICU progress note for Dr. Quach. Patient seen and evaluated at bedside. No acute events overnight. Complains of diffuse abdominal pain. Denies any other complaints. CCU Objective - Vital Signs / Intake & Output Vital Signs (Last 4 hours): Vital Signs Temp Pulse Resp BP Pulse Ox 05/11/18 07:00 83 13 100 05/11/18 06:51 111/69 05/11/18 06:30 75 14 100 05/11/18 06:20 81 14 100 05/11/18 06:13 102/60 05/11/18 05:30 83 14 100 05/11/18 05:10 87 15 100 05/11/18 05:00 82 14 100 05/11/18 04:50 86 15 144/49 L 100 05/11/18 04:40 84 15 100 05/11/18 04:30 84 14 100 05/11/18 04:10 85 15 100 05/11/18 04:00 98.5 F 84 14 100 05/11/18 03:51 85 14 118/45 L 100 05/11/18 03:50 86 14 100 Intake and Output (Last 8hrs): Intake & Output 05/10/18 05/11/18 05/11/18 22:59 06:59 14:59 Intake Total 450 320 40 Balance 450 320 40 Weight 139 lb 5.314 oz Intake: Intake, IV Amount 370 320 40 Left Hand 370 320 40 Oral 80 0 0 Other: # Voids Urine, Voided 0 0 0 # Bowel Movements 0 0 0 - Physical Exam Head: Positive for: Atraumatic, Normocephalic Pupils: Positive for: PERRL Extroacular Muscles: Positive for: EOMI Conjunctiva: Positive for: Normal Mouth: Positive for: Dry Neck: Positive for: Normal Range of Motion Respiratory/Chest: Positive for: Clear to Auscultation. Negative for: Respiratory Distress, Wheezes, Rales, Rhonchi Cardiovascular: Positive for: Regular Rate and Rhythm, Normal S1, S2 Abdomen: Positive for: Tenderness (diffuse). Negative for: Rebound, Guarding Upper Extremity: Positive for: Normal Inspection Lower Extremity: Positive for: Other (bilateral AKA) Neurological: Positive for: CN II-XII Intact, Speech Normal, Other (4/5 muscle strength bilateral lower extremities. Awake, oriented to self.) Skin: Positive for: Warm, Dry, Other (R chest permacath) Psychiatric: Negative for: Oriented x 3 (oriented x1) - Medications Active Medications: Active Medications Generic Name Dose Route Start Last Admin Trade Name Freq PRN Reason Stop Dose Admin Acetaminophen 650 mg 05/10/18 14:32 Tylenol 325mg Tab PO Q4H PRN Pain, Mild (1-3) Albuterol/Ipratropium 2 puff 05/10/18 15:13 Combivent Respimat INH BID PRN Shortness of Breath Albuterol/Ipratropium 3 ml 05/10/18 20:00 05/11/18 01:53 Duoneb 3 Mg/0.5 Mg (3 Ml) Ud INH 3 ml RQ6 ELIZABETH Administration Ascorbic Acid 250 mg 05/11/18 10:00 Vitamin C 250 Mg Tab PO DAILY ELIZABETH Dextrose 0 ml 05/10/18 14:39 Dextrose 50% Inj IV STAT PRN Hypoglycemia Protocol Protocol Dextrose 0 gm 05/10/18 14:39 Glutose 15 PO ONCE PRN Hypoglycemia Protocol Protocol Gabapentin 100 mg 05/10/18 18:00 05/10/18 18:05 Neurontin PO 100 mg TID ELIZABETH Administration Glucagon 0 mg 05/10/18 14:39 Glucagen Diagnostic Kit IM STAT PRN Hypoglycemia Protocol Protocol Heparin Sodium (Porcine) 5,000 units 05/10/18 22:00 05/11/18 06:38 Heparin SC 5,000 units Q8 ELIZABETH Administration Dextrose 1,000 mls @ 0 mls/hr 05/10/18 14:39 Dextrose 5% In Water 1000 Ml IV .Q0M PRN Hypoglycemia Protocol Protocol Per Protocol Aztreonam 500 mg/ Sodium 50 mls @ 100 mls/hr 05/10/18 22:00 05/10/18 22:20 Chloride IVPB 100 mls/hr Q12H ELIZABETH Administration Protocol Metronidazole 250 mg in 50 mls @ 100 mls/hr 05/10/18 22:15 05/11/18 06:38 Flagyl IVPB 100 mls/hr Q8H ELIZABETH Administration Protocol Dextrose/Sodium Chloride 1,000 mls @ 40 mls/hr 05/10/18 18:45 05/10/18 19:27 Dextrose 5%/0.45% Ns 1000 Ml IV 40 mls/hr .Q24H ELIZABETH Administration Insulin Aspart 0 unit 05/10/18 16:30 05/10/18 22:27 Novolog SC Not Given ACHS ELIZABETH Protocol Insulin Glargine 10 unit 05/10/18 22:00 05/10/18 22:24 Lantus SC 10 units HS ELIZABETH Administration Mirtazapine 7.5 mg 05/10/18 22:00 05/10/18 22:58 Remeron PO 7.5 mg HS ELIZABETH Administration Rosuvastatin Calcium 5 mg 05/10/18 22:00 05/10/18 22:24 Crestor PO 5 mg HS ELIZABETH Administration - Patient Studies Lab Studies: Lab Studies 05/11/18 05/11/18 05/10/18 Range/Units 07:35 06:01 21:34 WBC (4.8-10.8) K/uL RBC (3.80-5.20) Mil/uL Hgb (11.0-16.0) g/dL Hct (34.0-47.0) % MCV (81.0-99.0) fL MCH (27.0-31.0) pg MCHC (33.0-37.0) g/dL RDW (11.5-14.5) % Plt Count (130-400) K/uL MPV (7.2-11.7) fL Neut % (Auto) (50.0-75.0) % Lymph % (Auto) (20.0-40.0) % Owsley % (Auto) (0.0-10.0) % Eos % (Auto) (0.0-4.0) % Baso % (Auto) (0.0-2.0) % Neut # (Auto) (1.8-7.0) K/uL Lymph # (Auto) (1.0-4.3) K/uL Owsley # (Auto) (0.0-0.8) K/uL Eos # (Auto) (0.0-0.7) K/uL Baso # (Auto) (0.0-0.2) K/uL PT (9.7-12.2) SECONDS INR APTT (21-34) SECONDS Puncture Site pCO2 (35-45) mm/Hg pO2 (30-55) mm/Hg HCO3 (21-28) mmol/L ABG pH (7.35-7.45) ABG Total CO2 (22-28) mmol/L ABG O2 Saturation (95-98) % ABG Base Excess (-2.0-3.0) mmol/L ABG Hemoglobin (11.7-17.4) g/dL ABG Carboxyhemoglobin (0.5-1.5) % POC ABG HHb (Measured) (0.0-5.0) % ABG Methemoglobin (0.0-3.0) % Rg Test VBG pH (7.32-7.43) VBG pCO2 (40-60) mmHg VBG HCO3 mmol/L VBG Total CO2 (22-28) mmol/L VBG O2 Sat (Calc) (40-65) % VBG Base Excess (0.0-2.0) mmol/L VBG Potassium (3.6-5.2) mmol/L A-a O2 Difference mm/Hg Respiratory Index Hgb O2 Saturation (95.0-98.0) % Sodium 134 (132-148) mmol/l Chloride 104 (98-107) mmol/L Glucose (65-105) mg/dl Lactate (0.7-2.1) mmol/L FiO2 % Potassium 3.5 L (3.6-5.2) mmol/L Carbon Dioxide 17 L (22-30) mmol/L Anion Gap 17 (10-20) BUN 42 H (7-17) mg/dL Creatinine 5.2 H (0.7-1.2) mg/dL Est GFR ( Amer) 10 Est GFR (Non-Af Amer) 8 POC Glucose (mg/dL) 269 H 324 H (65-110) mg/dL Random Glucose 311 H (65-105) mg/dL Calcium 9.0 (8.6-10.4) mg/dl Phosphorus 3.3 (2.5-4.5) mg/dL Magnesium 2.0 (1.6-2.3) mg/dL Total Bilirubin 0.5 (0.2-1.3) mg/dL AST 55 H (14-36) U/L ALT 25 (9-52) U/L Alkaline Phosphatase 100 (38-126) U/L Total Protein 6.6 (6.3-8.3) g/dL Albumin 3.0 L (3.5-5.0) g/dL Globulin 3.6 (2.2-3.9) gm/dL Albumin/Globulin Ratio 0.8 L (1.0-2.1) Venous Blood Potassium (3.6-5.2) mmol/L Urine Color (YELLOW) Urine Clarity (Clear) Urine pH (5.0-8.0) Ur Specific Tarpley (1.003-1.030) Urine Protein (NEGATIVE) mg/dL Urine Glucose (UA) (Normal) mg/dL Urine Ketones (NEGATIVE) mg/dL Urine Blood (NEGATIVE) Urine Nitrate (NEGATIVE) Urine Bilirubin (NEGATIVE) Urine Urobilinogen (0.2-1.0) mg/dL Ur Leukocyte Esterase (Negative) Rustam/uL Urine WBC (Auto) (0-5) /hpf Urine RBC (Auto) (0-3) /hpf Ur Squamous Epith Cells (0-5) /hpf Urine Bacteria (<OCC) C. difficile Ag & Toxin (NEGATIVE) Influenza Typ A,B (EIA) (NEGATIVE) 05/10/18 05/10/18 05/10/18 Range/Units 19:55 16:00 13:15 WBC (4.8-10.8) K/uL RBC (3.80-5.20) Mil/uL Hgb (11.0-16.0) g/dL Hct (34.0-47.0) % MCV (81.0-99.0) fL MCH (27.0-31.0) pg MCHC (33.0-37.0) g/dL RDW (11.5-14.5) % Plt Count (130-400) K/uL MPV (7.2-11.7) fL Neut % (Auto) (50.0-75.0) % Lymph % (Auto) (20.0-40.0) % Owsley % (Auto) (0.0-10.0) % Eos % (Auto) (0.0-4.0) % Baso % (Auto) (0.0-2.0) % Neut # (Auto) (1.8-7.0) K/uL Lymph # (Auto) (1.0-4.3) K/uL Owsley # (Auto) (0.0-0.8) K/uL Eos # (Auto) (0.0-0.7) K/uL Baso # (Auto) (0.0-0.2) K/uL PT (9.7-12.2) SECONDS INR APTT (21-34) SECONDS Puncture Site pCO2 (35-45) mm/Hg pO2 (30-55) mm/Hg HCO3 (21-28) mmol/L ABG pH (7.35-7.45) ABG Total CO2 (22-28) mmol/L ABG O2 Saturation (95-98) % ABG Base Excess (-2.0-3.0) mmol/L ABG Hemoglobin (11.7-17.4) g/dL ABG Carboxyhemoglobin (0.5-1.5) % POC ABG HHb (Measured) (0.0-5.0) % ABG Methemoglobin (0.0-3.0) % Rg Test VBG pH (7.32-7.43) VBG pCO2 (40-60) mmHg VBG HCO3 mmol/L VBG Total CO2 (22-28) mmol/L VBG O2 Sat (Calc) (40-65) % VBG Base Excess (0.0-2.0) mmol/L VBG Potassium (3.6-5.2) mmol/L A-a O2 Difference mm/Hg Respiratory Index Hgb O2 Saturation (95.0-98.0) % Sodium (132-148) mmol/l Chloride (98-107) mmol/L Glucose (65-105) mg/dl Lactate (0.7-2.1) mmol/L FiO2 % Potassium (3.6-5.2) mmol/L Carbon Dioxide (22-30) mmol/L Anion Gap (10-20) BUN (7-17) mg/dL Creatinine (0.7-1.2) mg/dL Est GFR ( Amer) Est GFR (Non-Af Amer) POC Glucose (mg/dL) 227 H 266 H (65-110) mg/dL Random Glucose (65-105) mg/dL Calcium (8.6-10.4) mg/dl Phosphorus (2.5-4.5) mg/dL Magnesium (1.6-2.3) mg/dL Total Bilirubin (0.2-1.3) mg/dL AST (14-36) U/L ALT (9-52) U/L Alkaline Phosphatase (38-126) U/L Total Protein (6.3-8.3) g/dL Albumin (3.5-5.0) g/dL Globulin (2.2-3.9) gm/dL Albumin/Globulin Ratio (1.0-2.1) Venous Blood Potassium (3.6-5.2) mmol/L Urine Color (YELLOW) Urine Clarity (Clear) Urine pH (5.0-8.0) Ur Specific Tarpley (1.003-1.030) Urine Protein (NEGATIVE) mg/dL Urine Glucose (UA) (Normal) mg/dL Urine Ketones (NEGATIVE) mg/dL Urine Blood (NEGATIVE) Urine Nitrate (NEGATIVE) Urine Bilirubin (NEGATIVE) Urine Urobilinogen (0.2-1.0) mg/dL Ur Leukocyte Esterase (Negative) Rustam/uL Urine WBC (Auto) (0-5) /hpf Urine RBC (Auto) (0-3) /hpf Ur Squamous Epith Cells (0-5) /hpf Urine Bacteria (<OCC) C. difficile Ag & Toxin Negative (NEGATIVE) Influenza Typ A,B (EIA) (NEGATIVE) 05/10/18 05/10/18 05/10/18 Range/Units 12:05 11:33 09:06 WBC (4.8-10.8) K/uL RBC (3.80-5.20) Mil/uL Hgb (11.0-16.0) g/dL Hct (34.0-47.0) % MCV (81.0-99.0) fL MCH (27.0-31.0) pg MCHC (33.0-37.0) g/dL RDW (11.5-14.5) % Plt Count (130-400) K/uL MPV (7.2-11.7) fL Neut % (Auto) (50.0-75.0) % Lymph % (Auto) (20.0-40.0) % Owsley % (Auto) (0.0-10.0) % Eos % (Auto) (0.0-4.0) % Baso % (Auto) (0.0-2.0) % Neut # (Auto) (1.8-7.0) K/uL Lymph # (Auto) (1.0-4.3) K/uL Owsley # (Auto) (0.0-0.8) K/uL Eos # (Auto) (0.0-0.7) K/uL Baso # (Auto) (0.0-0.2) K/uL PT (9.7-12.2) SECONDS INR APTT (21-34) SECONDS Puncture Site pCO2 (35-45) mm/Hg pO2 50 (30-55) mm/Hg HCO3 (21-28) mmol/L ABG pH (7.35-7.45) ABG Total CO2 (22-28) mmol/L ABG O2 Saturation (95-98) % ABG Base Excess (-2.0-3.0) mmol/L ABG Hemoglobin (11.7-17.4) g/dL ABG Carboxyhemoglobin (0.5-1.5) % POC ABG HHb (Measured) (0.0-5.0) % ABG Methemoglobin (0.0-3.0) % Rg Test VBG pH 7.30 L (7.32-7.43) VBG pCO2 42 (40-60) mmHg VBG HCO3 20.2 mmol/L VBG Total CO2 22.0 (22-28) mmol/L VBG O2 Sat (Calc) 88.6 H (40-65) % VBG Base Excess -5.5 L (0.0-2.0) mmol/L VBG Potassium 3.9 (3.6-5.2) mmol/L A-a O2 Difference mm/Hg Respiratory Index Hgb O2 Saturation (95.0-98.0) % Sodium 136.0 136 (132-148) mmol/l Chloride 105.0 101 (98-107) mmol/L Glucose 254 H (65-105) mg/dl Lactate 1.1 (0.7-2.1) mmol/L FiO2 % Potassium 3.7 (3.6-5.2) mmol/L Carbon Dioxide 21 L (22-30) mmol/L Anion Gap 18 (10-20) BUN 36 H (7-17) mg/dL Creatinine 4.6 H (0.7-1.2) mg/dL Est GFR ( Amer) 12 Est GFR (Non-Af Amer) 10 POC Glucose (mg/dL) 240 H (65-110) mg/dL Random Glucose 187 H (65-105) mg/dL Calcium 9.5 (8.6-10.4) mg/dl Phosphorus 2.3 L (2.5-4.5) mg/dL Magnesium 2.1 (1.6-2.3) mg/dL Total Bilirubin 0.7 (0.2-1.3) mg/dL AST 58 H D (14-36) U/L ALT 14 (9-52) U/L Alkaline Phosphatase 91 (38-126) U/L Total Protein 7.5 (6.3-8.3) g/dL Albumin 3.4 L D (3.5-5.0) g/dL Globulin 4.1 H (2.2-3.9) gm/dL Albumin/Globulin Ratio 0.8 L (1.0-2.1) Venous Blood Potassium 3.9 (3.6-5.2) mmol/L Urine Color (YELLOW) Urine Clarity (Clear) Urine pH (5.0-8.0) Ur Specific Tarpley (1.003-1.030) Urine Protein (NEGATIVE) mg/dL Urine Glucose (UA) (Normal) mg/dL Urine Ketones (NEGATIVE) mg/dL Urine Blood (NEGATIVE) Urine Nitrate (NEGATIVE) Urine Bilirubin (NEGATIVE) Urine Urobilinogen (0.2-1.0) mg/dL Ur Leukocyte Esterase (Negative) Rustam/uL Urine WBC (Auto) (0-5) /hpf Urine RBC (Auto) (0-3) /hpf Ur Squamous Epith Cells (0-5) /hpf Urine Bacteria (<OCC) C. difficile Ag & Toxin (NEGATIVE) Influenza Typ A,B (EIA) (NEGATIVE) 05/10/18 05/10/18 05/10/18 Range/Units 09:05 09:01 08:31 WBC (4.8-10.8) K/uL RBC (3.80-5.20) Mil/uL Hgb (11.0-16.0) g/dL Hct (34.0-47.0) % MCV (81.0-99.0) fL MCH (27.0-31.0) pg MCHC (33.0-37.0) g/dL RDW (11.5-14.5) % Plt Count (130-400) K/uL MPV (7.2-11.7) fL Neut % (Auto) (50.0-75.0) % Lymph % (Auto) (20.0-40.0) % Owsley % (Auto) (0.0-10.0) % Eos % (Auto) (0.0-4.0) % Baso % (Auto) (0.0-2.0) % Neut # (Auto) (1.8-7.0) K/uL Lymph # (Auto) (1.0-4.3) K/uL Owsley # (Auto) (0.0-0.8) K/uL Eos # (Auto) (0.0-0.7) K/uL Baso # (Auto) (0.0-0.2) K/uL PT (9.7-12.2) SECONDS INR APTT (21-34) SECONDS Puncture Site Lra pCO2 36 (35-45) mm/Hg pO2 82 26 L (30-55) mm/Hg HCO3 20.0 L (21-28) mmol/L ABG pH 7.33 L (7.35-7.45) ABG Total CO2 20.1 L (22-28) mmol/L ABG O2 Saturation 97.6 (95-98) % ABG Base Excess -6.3 L (-2.0-3.0) mmol/L ABG Hemoglobin 11.8 (11.7-17.4) g/dL ABG Carboxyhemoglobin 1.4 (0.5-1.5) % POC ABG HHb (Measured) 2.3 (0.0-5.0) % ABG Methemoglobin 0.9 (0.0-3.0) % Rg Test Pos VBG pH 7.28 L (7.32-7.43) VBG pCO2 51 (40-60) mmHg VBG HCO3 20.8 mmol/L VBG Total CO2 25.6 (22-28) mmol/L VBG O2 Sat (Calc) 53.2 (40-65) % VBG Base Excess -3.3 L (0.0-2.0) mmol/L VBG Potassium 2.9 L (3.6-5.2) mmol/L A-a O2 Difference 23.0 mm/Hg Respiratory Index 0.3 Hgb O2 Saturation 95.4 (95.0-98.0) % Sodium 140.0 (132-148) mmol/l Chloride 105.0 (98-107) mmol/L Glucose 160 H (65-105) mg/dl Lactate 1.7 (0.7-2.1) mmol/L FiO2 21.0 % Potassium (3.6-5.2) mmol/L Carbon Dioxide (22-30) mmol/L Anion Gap (10-20) BUN (7-17) mg/dL Creatinine (0.7-1.2) mg/dL Est GFR ( Amer) Est GFR (Non-Af Amer) POC Glucose (mg/dL) (65-110) mg/dL Random Glucose (65-105) mg/dL Calcium (8.6-10.4) mg/dl Phosphorus (2.5-4.5) mg/dL Magnesium (1.6-2.3) mg/dL Total Bilirubin (0.2-1.3) mg/dL AST (14-36) U/L ALT (9-52) U/L Alkaline Phosphatase (38-126) U/L Total Protein (6.3-8.3) g/dL Albumin (3.5-5.0) g/dL Globulin (2.2-3.9) gm/dL Albumin/Globulin Ratio (1.0-2.1) Venous Blood Potassium 2.9 L (3.6-5.2) mmol/L Urine Color [place] (YELLOW) Urine Clarity Turbid (Clear) Urine pH 5.0 (5.0-8.0) Ur Specific Tarpley 1.026 (1.003-1.030) Urine Protein 2+ H (NEGATIVE) mg/dL Urine Glucose (UA) Normal (Normal) mg/dL Urine Ketones Negative (NEGATIVE) mg/dL Urine Blood 3+ H (NEGATIVE) Urine Nitrate Negative (NEGATIVE) Urine Bilirubin Negative (NEGATIVE) Urine Urobilinogen Normal (0.2-1.0) mg/dL Ur Leukocyte Esterase 3+ H (Negative) Rustam/uL Urine WBC (Auto) 630 H (0-5) /hpf Urine RBC (Auto) 510 H (0-3) /hpf Ur Squamous Epith Cells 88 H (0-5) /hpf Urine Bacteria Many H (<OCC) C. difficile Ag & Toxin (NEGATIVE) Influenza Typ A,B (EIA) (NEGATIVE) 05/10/18 05/10/18 05/10/18 Range/Units 08:24 08:24 08:24 WBC 16.6 H (4.8-10.8) K/uL RBC 4.13 (3.80-5.20) Mil/uL Hgb 12.8 (11.0-16.0) g/dL Hct 40.5 (34.0-47.0) % MCV 98.1 D (81.0-99.0) fL MCH 31.0 (27.0-31.0) pg MCHC 31.6 L (33.0-37.0) g/dL RDW 17.5 H (11.5-14.5) % Plt Count 257 D (130-400) K/uL MPV 10.4 (7.2-11.7) fL Neut % (Auto) 79.7 H (50.0-75.0) % Lymph % (Auto) 10.5 L (20.0-40.0) % Owsley % (Auto) 8.6 (0.0-10.0) % Eos % (Auto) 0.8 (0.0-4.0) % Baso % (Auto) 0.4 (0.0-2.0) % Neut # (Auto) 13.3 H (1.8-7.0) K/uL Lymph # (Auto) 1.7 (1.0-4.3) K/uL Owsley # (Auto) 1.4 H (0.0-0.8) K/uL Eos # (Auto) 0.1 (0.0-0.7) K/uL Baso # (Auto) 0.1 (0.0-0.2) K/uL PT 12.9 H (9.7-12.2) SECONDS INR 1.2 APTT 36 H (21-34) SECONDS Puncture Site pCO2 (35-45) mm/Hg pO2 (30-55) mm/Hg HCO3 (21-28) mmol/L ABG pH (7.35-7.45) ABG Total CO2 (22-28) mmol/L ABG O2 Saturation (95-98) % ABG Base Excess (-2.0-3.0) mmol/L ABG Hemoglobin (11.7-17.4) g/dL ABG Carboxyhemoglobin (0.5-1.5) % POC ABG HHb (Measured) (0.0-5.0) % ABG Methemoglobin (0.0-3.0) % Rg Test VBG pH (7.32-7.43) VBG pCO2 (40-60) mmHg VBG HCO3 mmol/L VBG Total CO2 (22-28) mmol/L VBG O2 Sat (Calc) (40-65) % VBG Base Excess (0.0-2.0) mmol/L VBG Potassium (3.6-5.2) mmol/L A-a O2 Difference mm/Hg Respiratory Index Hgb O2 Saturation (95.0-98.0) % Sodium (132-148) mmol/l Chloride (98-107) mmol/L Glucose (65-105) mg/dl Lactate (0.7-2.1) mmol/L FiO2 % Potassium (3.6-5.2) mmol/L Carbon Dioxide (22-30) mmol/L Anion Gap (10-20) BUN (7-17) mg/dL Creatinine (0.7-1.2) mg/dL Est GFR ( Amer) Est GFR (Non-Af Amer) POC Glucose (mg/dL) (65-110) mg/dL Random Glucose (65-105) mg/dL Calcium (8.6-10.4) mg/dl Phosphorus (2.5-4.5) mg/dL Magnesium (1.6-2.3) mg/dL Total Bilirubin (0.2-1.3) mg/dL AST (14-36) U/L ALT (9-52) U/L Alkaline Phosphatase (38-126) U/L Total Protein (6.3-8.3) g/dL Albumin (3.5-5.0) g/dL Globulin (2.2-3.9) gm/dL Albumin/Globulin Ratio (1.0-2.1) Venous Blood Potassium (3.6-5.2) mmol/L Urine Color (YELLOW) Urine Clarity (Clear) Urine pH (5.0-8.0) Ur Specific Tarpley (1.003-1.030) Urine Protein (NEGATIVE) mg/dL Urine Glucose (UA) (Normal) mg/dL Urine Ketones (NEGATIVE) mg/dL Urine Blood (NEGATIVE) Urine Nitrate (NEGATIVE) Urine Bilirubin (NEGATIVE) Urine Urobilinogen (0.2-1.0) mg/dL Ur Leukocyte Esterase (Negative) Rustam/uL Urine WBC (Auto) (0-5) /hpf Urine RBC (Auto) (0-3) /hpf Ur Squamous Epith Cells (0-5) /hpf Urine Bacteria (<OCC) C. difficile Ag & Toxin (NEGATIVE) Influenza Typ A,B (EIA) Negative for flu a/b (NEGATIVE) 05/10/18 Range/Units 07:54 WBC (4.8-10.8) K/uL RBC (3.80-5.20) Mil/uL Hgb (11.0-16.0) g/dL Hct (34.0-47.0) % MCV (81.0-99.0) fL MCH (27.0-31.0) pg MCHC (33.0-37.0) g/dL RDW (11.5-14.5) % Plt Count (130-400) K/uL MPV (7.2-11.7) fL Neut % (Auto) (50.0-75.0) % Lymph % (Auto) (20.0-40.0) % Owsley % (Auto) (0.0-10.0) % Eos % (Auto) (0.0-4.0) % Baso % (Auto) (0.0-2.0) % Neut # (Auto) (1.8-7.0) K/uL Lymph # (Auto) (1.0-4.3) K/uL Owsley # (Auto) (0.0-0.8) K/uL Eos # (Auto) (0.0-0.7) K/uL Baso # (Auto) (0.0-0.2) K/uL PT (9.7-12.2) SECONDS INR APTT (21-34) SECONDS Puncture Site pCO2 (35-45) mm/Hg pO2 (30-55) mm/Hg HCO3 (21-28) mmol/L ABG pH (7.35-7.45) ABG Total CO2 (22-28) mmol/L ABG O2 Saturation (95-98) % ABG Base Excess (-2.0-3.0) mmol/L ABG Hemoglobin (11.7-17.4) g/dL ABG Carboxyhemoglobin (0.5-1.5) % POC ABG HHb (Measured) (0.0-5.0) % ABG Methemoglobin (0.0-3.0) % Rg Test VBG pH (7.32-7.43) VBG pCO2 (40-60) mmHg VBG HCO3 mmol/L VBG Total CO2 (22-28) mmol/L VBG O2 Sat (Calc) (40-65) % VBG Base Excess (0.0-2.0) mmol/L VBG Potassium (3.6-5.2) mmol/L A-a O2 Difference mm/Hg Respiratory Index Hgb O2 Saturation (95.0-98.0) % Sodium (132-148) mmol/l Chloride (98-107) mmol/L Glucose (65-105) mg/dl Lactate (0.7-2.1) mmol/L FiO2 % Potassium (3.6-5.2) mmol/L Carbon Dioxide (22-30) mmol/L Anion Gap (10-20) BUN (7-17) mg/dL Creatinine (0.7-1.2) mg/dL Est GFR ( Amer) Est GFR (Non-Af Amer) POC Glucose (mg/dL) 156 H (65-110) mg/dL Random Glucose (65-105) mg/dL Calcium (8.6-10.4) mg/dl Phosphorus (2.5-4.5) mg/dL Magnesium (1.6-2.3) mg/dL Total Bilirubin (0.2-1.3) mg/dL AST (14-36) U/L ALT (9-52) U/L Alkaline Phosphatase (38-126) U/L Total Protein (6.3-8.3) g/dL Albumin (3.5-5.0) g/dL Globulin (2.2-3.9) gm/dL Albumin/Globulin Ratio (1.0-2.1) Venous Blood Potassium (3.6-5.2) mmol/L Urine Color (YELLOW) Urine Clarity (Clear) Urine pH (5.0-8.0) Ur Specific [place] (1.003-1.030) Urine Protein (NEGATIVE) mg/dL Urine Glucose (UA) (Normal) mg/dL Urine Ketones (NEGATIVE) mg/dL Urine Blood (NEGATIVE) Urine Nitrate (NEGATIVE) Urine Bilirubin (NEGATIVE) Urine Urobilinogen (0.2-1.0) mg/dL Ur Leukocyte Esterase (Negative) Rustam/uL Urine WBC (Auto) (0-5) /hpf Urine RBC (Auto) (0-3) /hpf Ur Squamous Epith Cells (0-5) /hpf Urine Bacteria (<OCC) C. difficile Ag & Toxin (NEGATIVE) Influenza Typ A,B (EIA) (NEGATIVE) Laboratory Results - last 24 hr 05/10/18 05/10/18 05/10/18 07:54 08:24 08:24 WBC 16.6 H RBC 4.13 Hgb 12.8 Hct 40.5 MCV 98.1 D MCH 31.0 MCHC 31.6 L RDW 17.5 H Plt Count 257 D MPV 10.4 Neut % (Auto) 79.7 H Lymph % (Auto) 10.5 L Ows[place] % (Auto) 8.6 Eos % (Auto) 0.8 Baso % (Auto) 0.4 Neut # (Auto) 13.3 H Lymph # (Auto) 1.7 Owsley # (Auto) 1.4 H Eos # (Auto) 0.1 Baso # (Auto) 0.1 PT 12.9 H INR 1.2 APTT 36 H Puncture Site pCO2 pO2 HCO3 ABG pH ABG Total CO2 ABG O2 Saturation ABG Base Excess ABG Hemoglobin ABG Carboxyhemoglobin POC ABG HHb (Measured) ABG Methemoglobin Rg Test VBG pH VBG pCO2 VBG HCO3 VBG Total CO2 VBG O2 Sat (Calc) VBG Base Excess VBG Potassium A-a O2 Difference Respiratory Index Hgb O2 Saturation Sodium Chloride Glucose Lactate FiO2 Potassium Carbon Dioxide Anion Gap BUN Creatinine Est GFR ( Amer) Est GFR (Non-Af Amer) POC Glucose (mg/dL) 156 H Random Glucose Calcium Phosphorus Magnesium Total Bilirubin AST ALT Alkaline Phosphatase Total Protein Albumin Globulin Albumin/Globulin Ratio Venous Blood Potassium Urine Color Urine Clarity Urine pH Ur Specific [place] Urine Protein Urine Glucose (UA) Urine Ketones Urine Blood Urine Nitrate Urine Bilirubin Urine Urobilinogen Ur Leukocyte Esterase Urine WBC (Auto) Urine RBC (Auto) Ur Squamous Epith Cells Urine Bacteria C. difficile Ag & Toxin Influenza Typ A,B (EIA) 05/10/18 05/10/18 05/10/18 08:24 08:31 09:01 WBC RBC Hgb Hct MCV MCH MCHC RDW Plt Count MPV Neut % (Auto) Lymph % (Auto) Ows[place] % (Auto) Eos % (Auto) Baso % (Auto) Neut # (Auto) Lymph # (Auto) Ows[place] # (Auto) Eos # (Auto) Baso # (Auto) PT INR APTT Puncture Site pCO2 pO2 26 L HCO3 ABG pH ABG Total CO2 ABG O2 Saturation ABG Base Excess ABG Hemoglobin ABG Carboxyhemoglobin POC ABG HHb (Measured) ABG Methemoglobin Rg Test VBG pH 7.28 L VBG pCO2 51 VBG HCO3 20.8 VBG Total CO2 25.6 VBG O2 Sat (Calc) 53.2 VBG Base Excess -3.3 L VBG Potassium 2.9 L A-a O2 Difference Respiratory Index Hgb O2 Saturation Sodium 140.0 Chloride 105.0 Glucose 160 H Lactate 1.7 FiO2 Potassium Carbon Dioxide Anion Gap BUN Creatinine Est GFR ( Amer) Est GFR (Non-Af Amer) POC Glucose (mg/dL) Random Glucose Calcium Phosphorus Magnesium Total Bilirubin AST ALT Alkaline Phosphatase Total Protein Albumin Globulin Albumin/Globulin Ratio Venous Blood Potassium 2.9 L Urine Color Le[place] Urine Clarity Turbid Urine pH 5.0 Ur Specific Tarpley 1.026 Urine Protein 2+ H Urine Glucose (UA) Normal Urine Ketones Negative Urine Blood 3+ H Urine Nitrate Negative Urine Bilirubin Negative Urine Urobilinogen Normal Ur Leukocyte Esterase 3+ H Urine WBC (Auto) 630 H Urine RBC (Auto) 510 H Ur Squamous Epith Cells 88 H Urine Bacteria Many H C. difficile Ag & Toxin Influenza Typ A,B (EIA) Negative for flu a/b 05/10/18 05/10/18 05/10/18 09:05 09:06 11:33 WBC RBC Hgb Hct MCV MCH MCHC RDW Plt Count MPV Neut % (Auto) Lymph % (Auto) Ows[place] % (Auto) Eos % (Auto) Baso % (Auto) Neut # (Auto) Lymph # (Auto) [place]ws[place] # (Auto) Eos # (Auto) Baso # (Auto) PT INR APTT Puncture Site Lra pCO2 36 pO2 82 50 HCO3 20.0 L ABG pH 7.33 L ABG Total CO2 20.1 L ABG O2 Saturation 97.6 ABG Base Excess -6.3 L ABG Hemoglobin 11.8 ABG Carboxyhemoglobin 1.4 POC ABG HHb (Measured) 2.3 ABG Methemoglobin 0.9 Rg Test Pos VBG pH 7.30 L VBG pCO2 42 VBG HCO3 20.2 VBG Total CO2 22.0 VBG O2 Sat (Calc) 88.6 H VBG Base Excess -5.5 L VBG Potassium 3.9 A-a O2 Difference 23.0 Respiratory Index 0.3 Hgb O2 Saturation 95.4 Sodium 136 136.0 Chloride 101 105.0 Glucose 254 H Lactate 1.1 FiO2 21.0 Potassium 3.7 Carbon Dioxide 21 L Anion Gap 18 BUN 36 H Creatinine 4.6 H Est GFR ( Amer) 12 Est GFR (Non-Af Amer) 10 POC Glucose (mg/dL) Random Glucose 187 H Calcium 9.5 Phosphorus 2.3 L Magnesium 2.1 Total Bilirubin 0.7 AST 58 H D ALT 14 Alkaline Phosphatase 91 Total Protein 7.5 Albumin 3.4 L D Globulin 4.1 H Albumin/Globulin Ratio 0.8 L Venous Blood Potassium 3.9 Urine Color Urine Clarity Urine pH Ur Specific [place] Urine Protein Urine Glucose (UA) Urine Ketones Urine Blood Urine Nitrate Urine Bilirubin Urine Urobilinogen Ur Leukocyte Esterase Urine WBC (Auto) Urine RBC (Auto) Ur Squamous Epith Cells Urine Bacteria C. difficile Ag & Toxin Influenza Typ A,B (EIA) 05/10/18 05/10/18 05/10/18 12:05 13:15 16:00 WBC RBC Hgb Hct MCV MCH MCHC RDW Plt Count MPV Neut % (Auto) Lymph % (Auto) Ows[place] % (Auto) Eos % (Auto) Baso % (Auto) Neut # (Auto) Lymph # (Auto) [place] # (Auto) Eos # (Auto) Baso # (Auto) PT INR APTT Puncture Site pCO2 pO2 HCO3 ABG pH ABG Total CO2 ABG O2 Saturation ABG Base Excess ABG Hemoglobin ABG Carboxyhemoglobin POC ABG HHb (Measured) ABG Methemoglobin Rg Test VBG pH VBG pCO2 VBG HCO3 VBG Total CO2 VBG O2 Sat (Calc) VBG Base Excess VBG Potassium A-a O2 Difference Respiratory Index Hgb O2 Saturation Sodium Chloride Glucose Lactate FiO2 Potassium Carbon Dioxide Anion Gap BUN Creatinine Est GFR ( Amer) Est GFR (Non-Af Amer) POC Glucose (mg/dL) 240 H 266 H 227 H Random Glucose Calcium Phosphorus Magnesium Total Bilirubin AST ALT Alkaline Phosphatase Total Protein Albumin Globulin Albumin/Globulin Ratio Venous Blood Potassium Urine Color Urine Clarity Urine pH Ur Specific [place] Urine Protein Urine Glucose (UA) Urine Ketones Urine Blood Urine Nitrate Urine Bilirubin Urine Urobilinogen Ur Leukocyte Esterase Urine WBC (Auto) Urine RBC (Auto) Ur Squamous Epith Cells Urine Bacteria C. difficile Ag & Toxin Influenza Typ A,B (EIA) 05/10/18 05/10/18 05/11/18 19:55 21:34 06:01 WBC RBC Hgb Hct MCV MCH MCHC RDW Plt Count MPV Neut % (Auto) Lymph % (Auto) [place] % (Auto) Eos % (Auto) Baso % (Auto) Neut # (Auto) Lymph # (Auto) [place] # (Auto) Eos # (Auto) Baso # (Auto) PT INR APTT Puncture Site pCO2 pO2 HCO3 ABG pH ABG Total CO2 ABG O2 Saturation ABG Base Excess ABG Hemoglobin ABG Carboxyhemoglobin POC ABG HHb (Measured) ABG Methemoglobin Rg Test VBG pH VBG pCO2 VBG HCO3 VBG Total CO2 VBG O2 Sat (Calc) VBG Base Excess VBG Potassium A-a O2 Difference Respiratory Index Hgb O2 Saturation Sodium 134 Chloride 104 Glucose Lactate FiO2 Potassium 3.5 L Carbon Dioxide 17 L Anion Gap 17 BUN 42 H Creatinine 5.2 H Est GFR ( Amer) 10 Est GFR (Non-Af Amer) 8 POC Glucose (mg/dL) 324 H Random Glucose 311 H Calcium 9.0 Phosphorus 3.3 Magnesium 2.0 Total Bilirubin 0.5 AST 55 H ALT 25 Alkaline Phosphatase 100 Total Protein 6.6 Albumin 3.0 L Globulin 3.6 Albumin/Globulin Ratio 0.8 L Venous Blood Potassium Urine Color Urine Clarity Urine pH Ur Specific [place] Urine Protein Urine Glucose (UA) Urine Ketones Urine Blood Urine Nitrate Urine Bilirubin Urine Urobilinogen Ur Leukocyte Esterase Urine WBC (Auto) Urine RBC (Auto) Ur Squamous Epith Cells Urine Bacteria C. difficile Ag & Toxin Negative Influenza Typ A,B (EIA) 05/11/18 07:35 WBC RBC Hgb Hct MCV MCH MCHC RDW Plt Count MPV Neut % (Auto) Lymph % (Auto) [place] % (Auto) Eos % (Auto) Baso % (Auto) Neut # (Auto) Lymph # (Auto) [place] # (Auto) Eos # (Auto) Baso # (Auto) PT INR APTT Puncture Site pCO2 pO2 HCO3 ABG pH ABG Total CO2 ABG O2 Saturation ABG Base Excess ABG Hemoglobin ABG Carboxyhemoglobin POC ABG HHb (Measured) ABG Methemoglobin Rg Test VBG pH VBG pCO2 VBG HCO3 VBG Total CO2 VBG O2 Sat (Calc) VBG Base Excess VBG Potassium A-a O2 Difference Respiratory Index Hgb O2 Saturation Sodium Chloride Glucose Lactate FiO2 Potassium Carbon Dioxide Anion Gap BUN Creatinine Est GFR ( Amer) Est GFR (Non-Af Amer) POC Glucose (mg/dL) 269 H Random Glucose Calcium Phosphorus Magnesium Total Bilirubin AST ALT Alkaline Phosphatase Total Protein Albumin Globulin Albumin/Globulin Ratio Venous Blood Potassium Urine Color Urine Clarity Urine pH Ur Specific [place] Urine Protein Urine Glucose (UA) Urine Ketones Urine Blood Urine Nitrate Urine Bilirubin Urine Urobilinogen Ur Leukocyte Esterase Urine WBC (Auto) Urine RBC (Auto) Ur Squamous Epith Cells Urine Bacteria C. difficile Ag & Toxin Influenza Typ A,B (EIA) Radiology Impressions: Radiology Impressions Chest X-Ray 05/10/18 08:03 IMPRESSION: No active disease. EKG/Cardiology Studies: Cardiology / EKG Studies 05/10/18 07:42 ELECTROCARDIOGRAM Stat Comment: Mode Of Transportation: Reason For Exam: Sepsis Patient 05/10/18 08:03 ELECTROCARDIOGRAM Stat Comment: Mode Of Transportation: Reason For Exam: Sepsis Patient Fingerstick Blood Sugar Results: 324 Review of Systems - Review of Systems Systems not reviewed;Unavailable: Other (Dementia) Critical Care Progress Note - Extremities/Vascular Does the Patient have a Central Venous Catheter?: No Does the Patient need a Central Venous Catheter?: No Does the Patient have a Allred Catheter?: No Does the Patient need a Allred Catheter?: No - Prophylaxis GI Prophylaxis GI: Not Indicated - Prophylaxis DVT Prophylaxis DVT: Heparin SQ - Nutrition Nutrition: Nutrition Category Date Time Status Renal Diet [DIET] Diets 05/10/18 Dinner Active Assessment/Plan - Assessment and Plan (Free Text) Plan: 63 year old female with PMHx of ESRD on HD TThS, DM 2, HTN, HLD, COPD, previous multi-drug resistant UTI brought to ED from senior care for lethargy and hypotension admitted for UTI. ROLL REPAIRER called today for patient for hypotension 60/38. ICU was consulted for persistent hypotension. Neuro: Awake, oriented to self Gabapentin 100mg TID Tylenol 650 PO Q4H PRN pain Remeron 7.5mg PO HS Cardio: BP: 111/69 at the time of exam Crestor 5mg PO HS D5/0.45%NS @ 40cc/hr Pulm: Duonebs INH RQ6H CXR 05/10: No active disease GI: Renal diet-moderate consistency Renal: HD on TThS Endo: Glargine 10u SC HS Aspart sliding scale ACHS Skin: Wound care nurse consulted for sacral ulcer: Medihoney and foam dressing daily Turn Q2 hours ID: WBC 15.3 from 16.6 Afebrile UA: 3+ blood, 2+protein, 3+ LE, 630 WBC, many bacteria Aztronam 500mg Q12H Metronidazole IV 250mg Q8H blood cx: No growth 24H urine cx: prelim- gram neg abdullahi Heme: H/H: 10.4/32.9, monitor Ppx: DVT-Heparin 5000u Q8H GI- not indicated Ascorbic acid 250mg PO daily Palliative care consulted. Help appreciated. Patient's son, Corey Edwards, is power of information systems security specialist. He may be contacted at [phone] for any changes or decision making. Dispo: Transfer to med-surg. Re-consult as necessary. Case discussed and all management as per Dr. Quach. Analilia Baron, PGY-1. <Lai Quach - Last Filed: 05/11/18 18:09> CCU Subjective - Physician Review Critical Care Time Spent (in minutes): 30 CCU Objective - Vital Signs / Intake & Output Vital Signs (Last 4 hours): Vital Signs Temp Pulse Resp BP Pulse Ox 05/11/18 17:46 78 11 L 109/34 L 100 05/11/18 17:44 85 17 100 05/11/18 17:43 79 12 100 05/11/18 17:31 73 14 100 05/11/18 17:30 72 12 100 05/11/18 17:00 74 13 100 05/11/18 16:30 70 16 98 05/11/18 16:00 98.3 F 72 13 100 05/11/18 15:30 79 12 100 05/11/18 15:00 86 13 98 05/11/18 14:30 85 10 L 100 Intake and Output (Last 8hrs): Intake & Output 05/11/18 05/11/18 05/11/18 06:59 14:59 22:59 Intake Total 320 370 40 Balance 320 370 40 Weight 139 lb 15.896 oz Intake: Intake, IV Amount 320 200 40 Left Hand 320 200 40 Oral 0 170 Other: # Voids Urine, Voided 0 0 # Bowel Movements 0 0 - Medications Active Medications: Active Medications Generic Name Dose Route Start Last Admin Trade Name Freq PRN Reason Stop Dose Admin Acetaminophen 650 mg 05/10/18 14:32 05/11/18 12:26 Tylenol 325mg Tab PO 650 mg Q4H PRN Administration Pain, Mild (1-3) Albuterol/Ipratropium 2 puff 05/10/18 15:13 Combivent Respimat INH BID PRN Shortness of Breath Albuterol/Ipratropium 3 ml 05/10/18 20:00 05/11/18 13:22 Duoneb 3 Mg/0.5 Mg (3 Ml) Ud INH 3 ml RQ6 ELIZABETH Administration Ascorbic Acid 250 mg 05/11/18 10:00 05/11/18 10:35 Vitamin C 250 Mg Tab PO 250 mg DAILY ELIZABETH Administration Dextrose 0 ml 05/10/18 14:39 Dextrose 50% Inj IV STAT PRN Hypoglycemia Protocol Protocol Dextrose 0 gm 05/10/18 14:39 Glutose 15 PO ONCE PRN Hypoglycemia Protocol Protocol Gabapentin 100 mg 05/10/18 18:00 05/11/18 17:36 Neurontin PO 100 mg TID ELIZABETH Administration Glucagon 0 mg 05/10/18 14:39 Glucagen Diagnostic Kit IM STAT PRN Hypoglycemia Protocol Protocol Heparin Sodium (Porcine) 5,000 units 05/10/18 22:00 05/11/18 13:39 Heparin SC 5,000 units Q8 ELIZABETH Administration Dextrose 1,000 mls @ 0 mls/hr 05/10/18 14:39 Dextrose 5% In Water 1000 Ml IV .Q0M PRN Hypoglycemia Protocol Protocol Per Protocol Aztreonam 500 mg/ Sodium 50 mls @ 100 mls/hr 05/10/18 22:00 05/11/18 12:25 Chloride IVPB 100 mls/hr Q12H ELIZABETH Administration Protocol Metronidazole 250 mg in 50 mls @ 100 mls/hr 05/10/18 22:15 05/11/18 13:40 Flagyl IVPB 100 mls/hr Q8H ELIZABETH Administration Protocol Dextrose/Sodium Chloride 1,000 mls @ 40 mls/hr 05/10/18 18:45 05/10/18 19:27 Dextrose 5%/0.45% Ns 1000 Ml IV 40 mls/hr .Q24H ELIZABETH Administration Insulin Aspart 0 unit 05/10/18 16:30 05/11/18 17:36 Novolog SC 1 u ACHS ELIZABETH Administration Protocol Insulin Glargine 10 unit 05/10/18 22:00 05/10/18 22:24 Lantus SC 10 units HS ELIZABETH Administration Mirtazapine 7.5 mg 05/10/18 22:00 05/10/18 22:58 Remeron PO 7.5 mg HS ELIZABETH Administration Rosuvastatin Calcium 5 mg 05/10/18 22:00 05/10/18 22:24 Crestor PO 5 mg HS ELIZABETH Administration - Patient Studies Lab Studies: Microbiology Studies 05/10/18 09:30 Blood Culture - Preliminary Blood NO GROWTH AFTER 24 HOURS 05/10/18 08:36 Blood Culture - Preliminary Blood NO GROWTH AFTER 24 HOURS 05/10/18 08:42 Urine Culture - Preliminary Urine,Catheterized Gram Negative Abdullahi Lab Studies 05/11/18 05/11/18 05/11/18 Range/Units 16:26 11:18 07:53 WBC 15.3 H (4.8-10.8) K/uL RBC 3.34 L (3.80-5.20) Mil/uL Hgb 10.4 L D (11.0-16.0) g/dL Hct 32.9 L (34.0-47.0) % MCV 98.6 (81.0-99.0) fL MCH 31.3 H (27.0-31.0) pg MCHC 31.8 L (33.0-37.0) g/dL RDW 18.1 H (11.5-14.5) % Plt Count 199 (130-400) K/uL MPV 10.6 (7.2-11.7) fL Neut % (Auto) 83.1 H (50.0-75.0) % Lymph % (Auto) 7.7 L (20.0-40.0) % [place] % (Auto) 8.1 (0.0-10.0) % Eos % (Auto) 0.7 (0.0-4.0) % Baso % (Auto) 0.4 (0.0-2.0) % Neut # (Auto) 12.7 H (1.8-7.0) K/uL Lymph # (Auto) 1.2 (1.0-4.3) K/uL [place] # (Auto) 1.2 H (0.0-0.8) K/uL Eos # (Auto) 0.1 (0.0-0.7) K/uL Baso # (Auto) 0.1 (0.0-0.2) K/uL Neutrophils % (Manual) 84 H (50-75) % Lymphocytes % (Manual) 7 L (20-40) % Monocytes % (Manual) 8 (0-10) % Eosinophils % (Manual) 1 (0-4) % Platelet Estimate Normal (NORMAL) Polychromasia Slight Hypochromasia (manual) Slight Poikilocytosis (manual Slight Anisocytosis (manual) Slight Macrocytosis (manual) Slight Ovalocytes Slight Brenda Cells Slight Sodium (132-148) mmol/L Potassium (3.6-5.2) mmol/L Chloride (98-107) mmol/L Carbon Dioxide (22-30) mmol/L Anion Gap (10-20) BUN (7-17) mg/dL Creatinine (0.7-1.2) mg/dL Est GFR ( Amer) Est GFR (Non-Af Amer) POC Glucose (mg/dL) 182 H 125 H (65-110) mg/dL Random Glucose (65-105) mg/dL Calcium (8.6-10.4) mg/dl Phosphorus (2.5-4.5) mg/dL Magnesium (1.6-2.3) mg/dL Total Bilirubin (0.2-1.3) mg/dL AST (14-36) U/L ALT (9-52) U/L Alkaline Phosphatase (38-126) U/L Total Protein (6.3-8.3) g/dL Albumin (3.5-5.0) g/dL Globulin (2.2-3.9) gm/dL Albumin/Globulin Ratio (1.0-2.1) C. difficile Ag & Toxin (NEGATIVE) 05/11/18 05/11/18 05/10/18 Range/Units 07:35 06:01 21:34 WBC (4.8-10.8) K/uL RBC (3.80-5.20) Mil/uL Hgb (11.0-16.0) g/dL Hct (34.0-47.0) % MCV (81.0-99.0) fL MCH (27.0-31.0) pg MCHC (33.0-37.0) g/dL RDW (11.5-14.5) % Plt Count (130-400) K/uL MPV (7.2-11.7) fL Neut % (Auto) (50.0-75.0) % Lymph % (Auto) (20.0-40.0) % [place] % (Auto) (0.0-10.0) % Eos % (Auto) (0.0-4.0) % Baso % (Auto) (0.0-2.0) % Neut # (Auto) (1.8-7.0) K/uL Lymph # (Auto) (1.0-4.3) K/uL [place] # (Auto) (0.0-0.8) K/uL Eos # (Auto) (0.0-0.7) K/uL Baso # (Auto) (0.0-0.2) K/uL Neutrophils % (Manual) (50-75) % Lymphocytes % (Manual) (20-40) % Monocytes % (Manual) (0-10) % Eosinophils % (Manual) (0-4) % Platelet Estimate (NORMAL) Polychromasia Hypochromasia (manual) Poikilocytosis (manual Anisocytosis (manual) Macrocytosis (manual) Ovalocytes [place] Cells Sodium 134 (132-148) mmol/L Potassium 3.5 L (3.6-5.2) mmol/L Chloride 104 (98-107) mmol/L Carbon Dioxide 17 L (22-30) mmol/L Anion Gap 17 (10-20) BUN 42 H (7-17) mg/dL Creatinine 5.2 H (0.7-1.2) mg/dL Est GFR ( Amer) 10 Est GFR (Non-Af Amer) 8 POC Glucose (mg/dL) 269 H 324 H (65-110) mg/dL Random Glucose 311 H (65-105) mg/dL Calcium 9.0 (8.6-10.4) mg/dl Phosphorus 3.3 (2.5-4.5) mg/dL Magnesium 2.0 (1.6-2.3) mg/dL Total Bilirubin 0.5 (0.2-1.3) mg/dL AST 55 H (14-36) U/L ALT 25 (9-52) U/L Alkaline Phosphatase 100 (38-126) U/L Total Protein 6.6 (6.3-8.3) g/dL Albumin 3.0 L (3.5-5.0) g/dL Globulin 3.6 (2.2-3.9) gm/dL Albumin/Globulin Ratio 0.8 L (1.0-2.1) C. difficile Ag & Toxin (NEGATIVE) 05/10/18 Range/Units 19:55 WBC (4.8-10.8) K/uL RBC (3.80-5.20) Mil/uL Hgb (11.0-16.0) g/dL Hct (34.0-47.0) % MCV (81.0-99.0) fL MCH (27.0-31.0) pg MCHC (33.0-37.0) g/dL RDW (11.5-14.5) % Plt Count (130-400) K/uL MPV (7.2-11.7) fL Neut % (Auto) (50.0-75.0) % Lymph % (Auto) (20.0-40.0) % [place] % (Auto) (0.0-10.0) % Eos % (Auto) (0.0-4.0) % Baso % (Auto) (0.0-2.0) % Neut # (Auto) (1.8-7.0) K/uL Lymph # (Auto) (1.0-4.3) K/uL [place] # (Auto) (0.0-0.8) K/uL Eos # (Auto) (0.0-0.7) K/uL Baso # (Auto) (0.0-0.2) K/uL Neutrophils % (Manual) (50-75) % Lymphocytes % (Manual) (20-40) % Monocytes % (Manual) (0-10) % Eosinophils % (Manual) (0-4) % Platelet Estimate (NORMAL) Polychromasia Hypochromasia (manual) Poikilocytosis (manual Anisocytosis (manual) Macrocytosis (manual) Ovalocytes [place] Cells Sodium (132-148) mmol/L Potassium (3.6-5.2) mmol/L Chloride (98-107) mmol/L Carbon Dioxide (22-30) mmol/L Anion Gap (10-20) BUN (7-17) mg/dL Creatinine (0.7-1.2) mg/dL Est GFR ( Amer) Est GFR (Non-Af Amer) POC Glucose (mg/dL) (65-110) mg/dL Random Glucose (65-105) mg/dL Calcium (8.6-10.4) mg/dl Phosphorus (2.5-4.5) mg/dL Magnesium (1.6-2.3) mg/dL Total Bilirubin (0.2-1.3) mg/dL AST (14-36) U/L ALT (9-52) U/L Alkaline Phosphatase (38-126) U/L Total Protein (6.3-8.3) g/dL Albumin (3.5-5.0) g/dL Globulin (2.2-3.9) gm/dL Albumin/Globulin Ratio (1.0-2.1) C. difficile Ag & Toxin Negative (NEGATIVE) Laboratory Results - last 24 hr 05/10/18 05/10/18 05/11/18 19:55 21:34 06:01 WBC RBC Hgb Hct MCV MCH MCHC RDW Plt Count MPV Neut % (Auto) Lymph % (Auto) [place] % (Auto) Eos % (Auto) Baso % (Auto) Neut # (Auto) Lymph # (Auto) [place] # (Auto) Eos # (Auto) Baso # (Auto) Neutrophils % (Manual) Lymphocytes % (Manual) Monocytes % (Manual) Eosinophils % (Manual) Platelet Estimate Polychromasia Hypochromasia (manual) Poikilocytosis (manual Anisocytosis (manual) Macrocytosis (manual) Ovalocytes Brenda Cells Sodium 134 Potassium 3.5 L Chloride 104 Carbon Dioxide 17 L Anion Gap 17 BUN 42 H Creatinine 5.2 H Est GFR ( Amer) 10 Est GFR (Non-Af Amer) 8 POC Glucose (mg/dL) 324 H Random Glucose 311 H Calcium 9.0 Phosphorus 3.3 Magnesium 2.0 Total Bilirubin 0.5 AST 55 H ALT 25 Alkaline Phosphatase 100 Total Protein 6.6 Albumin 3.0 L Globulin 3.6 Albumin/Globulin Ratio 0.8 L C. difficile Ag & Toxin Negative 05/11/18 05/11/18 05/11/18 07:35 07:53 11:18 WBC 15.3 H RBC 3.34 L Hgb 10.4 L D Hct 32.9 L MCV 98.6 MCH 31.3 H MCHC 31.8 L RDW 18.1 H Plt Count 199 MPV 10.6 Neut % (Auto) 83.1 H Lymph % (Auto) 7.7 L [place] % (Auto) 8.1 Eos % (Auto) 0.7 Baso % (Auto) 0.4 Neut # (Auto) 12.7 H Lymph # (Auto) 1.2 [place] # (Auto) 1.2 H Eos # (Auto) 0.1 Baso # (Auto) 0.1 Neutrophils % (Manual) 84 H Lymphocytes % (Manual) 7 L Monocytes % (Manual) 8 Eosinophils % (Manual) 1 Platelet Estimate Normal Polychromasia Slight Hypochromasia (manual) Slight Poikilocytosis (manual Slight Anisocytosis (manual) Slight Macrocytosis (manual) Slight Ovalocytes Slight Brenda Cells Slight Sodium Potassium Chloride Carbon Dioxide Anion Gap BUN Creatinine Est GFR ( Amer) Est GFR (Non-Af Amer) POC Glucose (mg/dL) 269 H 125 H Random Glucose Calcium Phosphorus Magnesium Total Bilirubin AST ALT Alkaline Phosphatase Total Protein Albumin Globulin Albumin/Globulin Ratio C. difficile Ag & Toxin 05/11/18 16:26 WBC RBC Hgb Hct MCV MCH MCHC RDW Plt Count MPV Neut % (Auto) Lymph % (Auto) [place] % (Auto) Eos % (Auto) Baso % (Auto) Neut # (Auto) Lymph # (Auto) [place] # (Auto) Eos # (Auto) Baso # (Auto) Neutrophils % (Manual) Lymphocytes % (Manual) Monocytes % (Manual) Eosinophils % (Manual) Platelet Estimate Polychromasia Hypochromasia (manual) Poikilocytosis (manual Anisocytosis (manual) Macrocytosis (manual) Ovalocytes Brenda Cells Sodium Potassium Chloride Carbon Dioxide Anion Gap BUN Creatinine Est GFR ( Amer) Est GFR (Non-Af Amer) POC Glucose (mg/dL) 182 H Random Glucose Calcium Phosphorus Magnesium Total Bilirubin AST ALT Alkaline Phosphatase Total Protein Albumin Globulin Albumin/Globulin Ratio C. difficile Ag & Toxin Critical Care Progress Note - Nutrition Nutrition: Nutrition Category Date Time Status Renal Diet [DIET] Diets 05/10/18 Dinner Active Attending/Attestation - Attestation I have personally seen and examined this patient.: Yes I have fully participated in the care of the patient.: Yes I have reviewed all pertinent clinical information: Yes Notes (Text): 05/11/18 18:09 patient seen and examined in the intensive care unit. Assessment and plan as per resident note Stable for transfer to floor Continue hemodialysis Continue antibiotics Patient normotensive
[2018-05-11 08:01] LABS: BASO # 0.1 K/uL (0.0-0.2); EOS # 0.1 K/uL (0.0-0.7)
[2018-05-11 08:11] LABS: BASO % 0.4 % (0.0-2.0); EOS % 0.7 % (0.0-4.0); LYMPH # 1.2 K/uL (1.0-4.3); LYMPH % 7.7 % (20.0-40.0); MEAN CELL VOLUME 98.6 fL (81.0-99.0); MEAN CORPUSCULAR HEMOGLOBIN 31.3 pg (27.0-31.0); MEAN CORPUSCULAR HGB CONC 31.8 g/dL (33.0-37.0); MEAN PLATELET VOLUME 10.6 fL (7.2-11.7); MONO # 1.2 K/uL (0.0-0.8); MONO % 8.1 % (0.0-10.0); NEUT # 12.7 K/uL (1.8-7.0); NEUT % 83.1 % (50.0-75.0); PLATELET COUNT 199 K/uL (130-400); RBC 3.34 Mil/uL (3.80-5.20); RED CELL DISTRIBUTION WIDTH 18.1 % (11.5-14.5); WHITE BLOOD COUNT 15.3 K/uL (4.8-10.8)
[2018-05-11 08:13] LABS: HEMOGLOBIN 10.4 g/dL (11.0-16.0)
--- NOTE | 2018-05-11 08:26 | CON ---
DATE: 05/10/2018 RENAL CONSULTATION LOCATION: The patient is located in ICU, bed 6. REQUESTED BY: Filemon Stiles MD REASON FOR RENAL CONSULTATION: End-stage renal disease for continuation of hemodialysis three times a week, Thursday, , and Thursday, and hypotension and fever. HISTORY OF PRESENT ILLNESS: Mrs. Edwards is a 63-year-old elderly female, known to me from the previous admissions with a past medical history significant for longstanding hypertension, diabetes, COPD, CHF, recurrent UTIs, bilateral AKA, end-stage renal disease, on hemodialysis for the last 1-1/2 years who was sent from the intermediate with chief complaints of lethargy, hypotension, hypoxia for known duration. The patient was also found to have a low-grade temperature on admission and blood pressure about 115/47 in the emergency room, pulse 83, respirations 16, temperature 100, saturation 100%. The patient was admitted to ICU for sepsis and altered mental status. The patient is awake, not following commands appropriately. The patient is confused, not in acute distress, on nasal cannula. PAST MEDICAL HISTORY: Significant for hypertension, diabetes, depression, COPD, CHF, hyperlipidemia, peripheral vascular disease, and also bilateral AKA, history of WPW syndrome. PAST SURGICAL HISTORY: Bilateral AKA and clotted left upper extremity AV graft and also right intrajugular Permacath. ALLERGIES: ALLERGIC TO IMIPENEM, OXYCODONE. SOCIAL HISTORY: No smoking. No alcohol. No drugs. FAMILY HISTORY: Not significant. CURRENT MEDICATIONS: Include as follows as: Azactam 500 mg IV every 12 hours, DuoNeb inhaler 2 puffs inhaler b.i.d., Crestor 5 mg at bedtime, IV fluids D5 half normal saline at mL/hour, Flagyl 250 mg IV every 8 hours, also subcu heparin 5000 units every 8 hours, Lantus 10 units subcu at bedtime, Neurontin 100 mg p.o. t.i.d., Remeron 7.5 mg p.o. at bedtime, Tylenol, ascorbic acid, vitamin C 250 mg p.o. daily. REVIEW OF SYSTEMS: Significant for low-grade fever and altered mental status, hypotension. All other review of systems are reviewed and negative. Her baseline mental status about 1 to 2 during the dialysis. PHYSICAL EXAMINATION: VITAL SIGNS: Blood pressure previously was 56/29, pulse 81, respirations 19, and T-max is 100. Her blood pressure after IV fluids is about 99/35, pulse 86, respirations 16, saturation 100%. Height 4 feet 2 inches and weight is 139 pounds. GENERAL: Mrs. Edwards is a 63-year-old elderly obese female with bilateral amputation, AKA, moderately built, moderately nourished, not in distress. HEENT: Pupils normal and reactive to light and accommodation. Conjunctivae pink. Sclerae anicteric. Tongue is moist. Trachea is midline. LUNGS: Symmetric on both sides. Bilateral breath sounds present. No crackles. The patient has a right intrajugular Permacath. CARDIOVASCULAR SYSTEM: [place] at the fifth intercostal space. S1, S2 audible. No murmur or gallop. ABDOMEN: Normal in appearance. Soft, tympanitic. No guarding. No rigidity. No hepatosplenomegaly. CENTRAL NERVOUS SYSTEM: The patient is awake and oriented times one. Cranial nerves II through XII grossly intact. Sensory system is within normal limits. Motor, bilateral AKA, status post clotted left upper extremity AV graft. LABORATORY DATA: Her laboratory data include as follows: As of 05/10/2018, WBC 16.6, hemoglobin 12.8, hematocrit is 40.5, platelets 257. PT 12.9, PTT 36. ABG, pH 7.33. pCO2 is 36, pO2 is 82, O2 saturation is 97.6, and bicarb is 20. Sodium 136, potassium 3.7, chloride 101, CO2 of 21, BUN 36, creatinine 4.6. Glucose 187, calcium 9.5, phosphorus 2.3, magnesium 2.1. Total bili 0.7, AST 58, and ALT 14, alkaline phosphatase 91, total protein 7.5, albumin is 3.4. Urinalysis, lani, turbid, pH is 5, specific 1.026, protein 2+, glucose normal, ketones negative, blood 3+, nitrites negative, bilirubin negative, urobilinogen normal, leukocyte esterase 3+, wbc 630, rbc 510, and bacteria many, and stool for C. difficile toxin is negative, and influenza A and B antibodies negative. Chest x-ray as of 05/10/2018, there is right side dialysis catheter terminating in the right atrium. No active disease. IMPRESSION: In summary, Mrs. Edwards is a 63-year-old elderly female with hypertension, diabetes, end-stage renal disease, chronic obstructive pulmonary disease, congestive heart failure, recurrent urinary tract infections, asthma, depression, and hemodialysis three times a week Thursday, , Thursday who was sent from the intermediate with altered mental status found at the baseline and also low-grade fever, and found to be hypotensive in the hospital with a code sepsis and hypotension. The patient was given IV fluids and subsequently was admitted to ICU. 1. End-stage renal disease. Continue dialysis three times a week, Thursday, , and Thursday. 2. Status post hypotension, rule out urosepsis. 3. Diabetes. 4. History of hypertension, status post hypotension due to sepsis and responded to IV fluids. Continue antibiotics as per Infectious Disease recommendations. Check urine and blood culture reports, and continue IV fluids D5 half normal saline at 42 mL/hour due to decreased p.o. intake. We will schedule for hemodialysis in a.m. We will follow with you. Thank you for allowing me to participate in your patient's care. Outline sepsis at this time. Asha Saeed MD
[2018-05-11 09:01] LABS: ANISOCYTOSIS SLIGHT; EOSINOPHIL 1 % (0-4); HYPOCHROMIC SLIGHT; LYMPHOCYTE 7 % (20-40); MONOCYTE 8 % (0-10); NEUTROPHIL 84 % (50-75); PLATELET ESTIMATE NORMAL (NORMAL); POIKILOCYTOSIS SLIGHT; TOTAL CELLS COUNTED 100
[2018-05-11 09:02] LABS: BURR CELLS SLIGHT; OVALOCYTES SLIGHT; POLYCHROMIC SLIGHT
--- NOTE | 2018-05-11 10:50 | CP.PCM.CON ---
History of Present Illness - History of Present Illness History of Present Illness: Palliative consult requested by Doctor rodriguez for goals of care discussion Patient is a 63 yo female admitted from [place] with lethargy, low BP and Hypoxia, and changes in mental status. On 05/01/18 patient was discharged from [facility] where was treated for UTI. 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 Last HD was not known at time of admission. CXR was negative acute findings. The same day, patient's BP dropped to 60/38. MANUFACTURING ASSOCIATE was called and patient revived successfully and transfered to ICU. Diagnosis of septic shock was established and Id consult called. Azactam and Flagyl IV initiated. Patient remains lethargic . BP today 127/37. Patient's wishes for the end of life care are not known. Palliative care was called to discuss with care planing . PMH: ESRD with HD, B/L AKA, uncontroled DM, diabetic rethinopathy, neuropathy, PVD, recently revision of AV shunt, Blood Tf without GI bleeding Soc. Hx: , [place] resident, has two children Fam. Hx: unknown Review of Systems - Review of Systems All systems: reviewed and no additional remarkable complaints except Review of Systems: ROS unobtainable from patient due to lethargy. ROS obtained from nursing. Per nursing, patient remains lethargic and only recting to tactile stimuli. Past Patient History - Infectious Disease Hx of Infectious Diseases: None - Past Medical History & Family History Past Medical History?: Yes - Past Social History Smoking Status: Former Smoker - CARDIAC Hx Cardiac Disorders: Yes Hx Cardia Arrhythmia: ([id number] syndrom) Hx Hypercholesterolemia: Yes Hx Hypertension: Yes Hx Peripheral Edema: Yes - PULMONARY Hx Respiratory Disorders: Yes Hx Asthma: Yes Hx Chronic Obstructive Pulmonary Disease (COPD): Yes (ASTHMA,) Hx Emphysema: Yes Hx Pneumonia: Yes - NEUROLOGICAL Hx Neurological Disorder: Yes HX Cerebrovascular Accident: Yes - HEENT Hx HEENT Problems: Yes (WEARS RX GLASSES) Hx Blind: No Hx Cataracts: No Hx Deafness: No Hx Difficulty Chewing: No Hx Epistaxis: No Hx Glaucoma: Yes Hx Macular Degeneration: No Other/Comment: TOP & BOTTOM DENTURES - RENAL Hx Chronic Kidney Disease: Yes Hx Dialysis: Yes Type of Dialysis Access: Right chest permacath Date of Last Dialysis Treatment: 05/08/18 - ENDOCRINE/METABOLIC Hx Endocrine Disorders: Yes Hx Diabetes Mellitus Type 2: Yes - HEMATOLOGICAL/ONCOLOGICAL Hx Blood Disorders: Yes Hx Anemia: Yes - INTEGUMENTARY Hx Dermatological Problems: Yes Other/Comment: notes from last pt visit/previous triage:redness under both breasts and b/l abd folds, healed skin to buttocks and sacrum - MUSCULOSKELETAL/RHEUMATOLOGICAL Hx Falls: No - GASTROINTESTINAL Hx Gastrointestinal Disorders: Yes Hx Gastroesophageal Reflux: Yes Other/Comment: obesity - GENITOURINARY/GYNECOLOGICAL Hx Genitourinary Disorders: Yes Hx Hematuria: No Hx Incontinence: Yes Hx Urinary Tract Infection: Yes Other/Comment: pylonephritis - PSYCHIATRIC Hx Psychophysiologic Disorder: Yes Hx Anxiety: Yes Hx Depression: Yes Hx Substance Use: No - SURGICAL HISTORY Hx Surgeries: Yes Hx Amputation: Yes (BL BKA) - ANESTHESIA Hx Anesthesia: Yes Hx Anesthesia Reactions: No Hx Malignant Hyperthermia: No Has any member of the family had a problem w/ anesthesia?: No Meds Allergies/Adverse Reactions: Allergies Allergy/AdvReac Type Severity Reaction Status Date / Time cilastatin sodium Allergy RASH Verified 04/20/18 21:48 [From Primaxin] imipenem [From Primaxin] Allergy RASH Verified 04/20/18 21:48 oxycodone Allergy RASH Verified 04/20/18 21:48 cilastin Allergy unknown Uncoded 04/20/18 21:48 - Medications Medications: Current Medications Acetaminophen (Tylenol 325mg Tab) 650 mg PO Q4H PRN PRN Reason: Pain, Mild (1-3) Last Admin: 05/11/18 07:45 Dose: 650 mg Albuterol/Ipratropium (Combivent Respimat) 2 puff INH BID PRN PRN Reason: Shortness of Breath Albuterol/Ipratropium (Duoneb 3 Mg/0.5 Mg (3 Ml) Ud) 3 ml INH RQ6 [facility] Last Admin: 05/11/18 08:14 Dose: 3 ml Ascorbic Acid (Vitamin C 250 Mg Tab) 250 mg PO DAILY [facility] Last Admin: 05/11/18 10:35 Dose: 250 mg Dextrose (Dextrose 50% Inj) 0 ml IV STAT PRN; Protocol PRN Reason: Hypoglycemia Protocol Dextrose (Glutose 15) 0 gm PO ONCE PRN; Protocol PRN Reason: Hypoglycemia Protocol Gabapentin (Neurontin) 100 mg PO TID [facility] Last Admin: 05/11/18 10:35 Dose: 100 mg Glucagon (Glucagen Diagnostic Kit) 0 mg IM STAT PRN; Protocol PRN Reason: Hypoglycemia Protocol Heparin Sodium (Porcine) (Heparin) 5,000 units SC Q8 [facility] Last Admin: 05/11/18 06:38 Dose: 5,000 units Dextrose (Dextrose 5% In Water 1000 Ml) 1,000 mls @ 0 mls/hr IV .Q0M PRN; Protocol PRN Reason: Hypoglycemia Protocol Aztreonam 500 mg/ Sodium (Chloride) 50 mls @ 100 mls/hr IVPB Q12H [facility]; Protocol Last Admin: 05/10/18 22:20 Dose: 100 mls/hr Metronidazole (Flagyl) 250 mg in 50 mls @ 100 mls/hr IVPB Q8H [facility]; Protocol Last Admin: 05/11/18 06:38 Dose: 100 mls/hr Dextrose/Sodium Chloride (Dextrose 5%/0.45% Ns 1000 Ml) 1,000 mls @ 40 mls/hr IV .Q24H [facility] Last Admin: 05/10/18 19:27 Dose: 40 mls/hr Insulin Aspart (Novolog) 0 unit SC ACHS [facility]; Protocol Last Admin: 05/11/18 07:45 Dose: 3 u Insulin Glargine (Lantus) 10 unit SC [facility] Last Admin: 05/10/18 22:24 Dose: 10 units Mirtazapine (Remeron) 7.5 mg PO [facility] Last Admin: 05/10/18 22:58 Dose: 7.5 mg Rosuvastatin Calcium (Crestor) 5 mg PO [facility] Last Admin: 05/10/18 22:24 Dose: 5 mg Physical Exam - Constitutional Appears: In Acute Distress, Chronically Ill - Head Exam Head Exam: ATRAUMATIC, NORMAL INSPECTION, NORMOCEPHALIC - Eye Exam Eye Exam: EOMI, Normal appearance, PERRL Pupil Exam: NORMAL ACCOMODATION, PERRL - ENT Exam ENT Exam: Mucous Membranes Dry - Neck Exam Neck exam: Positive for: Normal Inspection - Respiratory Exam Respiratory Exam: Decreased Breath Sounds, NORMAL BREATHING PATTERN - Cardiovascular Exam Cardiovascular Exam: Tachycardia - GI/Abdominal Exam GI & Abdominal Exam: Diminished Bowel Sounds, Soft - Rectal Exam Rectal Exam: Deferred - Exam Additional comments: On HD - Extremities Exam Additional comments: B/L AKA - Back Exam Back exam: NORMAL INSPECTION - Neurological Exam Neurological exam: Alert, Altered - Psychiatric Exam Psychiatric exam: Depressed, Flat Affect - Skin Skin Exam: Pallor Results - Vital Signs Recent Vital Signs: Last Vital Signs Temp 97.4 F L 05/11/18 09:20 Pulse 73 05/11/18 09:43 Resp 12 05/11/18 09:43 BP 127/43 L 05/11/18 10:20 Pulse Ox 100 05/11/18 09:20 - Labs Result Diagrams: 05/11/18 07:53 05/11/18 06:01 Labs: Laboratory Results - last 24 hr 05/10/18 05/10/18 05/10/18 11:33 12:05 13:15 WBC RBC Hgb Hct MCV MCH MCHC RDW Plt Count MPV Neut % (Auto) Lymph % (Auto) [place] % (Auto) Eos % (Auto) Baso % (Auto) Neut # (Auto) Lymph # (Auto) [place] # (Auto) Eos # (Auto) Baso # (Auto) Neutrophils % (Manual) Lymphocytes % (Manual) Monocytes % (Manual) Eosinophils % (Manual) Platelet Estimate Polychromasia Hypochromasia (manual) Poikilocytosis (manual Anisocytosis (manual) Macrocytosis (manual) Ovalocytes [place] Cells pO2 50 VBG pH 7.30 L VBG pCO2 42 VBG HCO3 20.2 VBG Total CO2 22.0 VBG O2 Sat (Calc) 88.6 H VBG Base Excess -5.5 L VBG Potassium 3.9 Sodium 136.0 Chloride 105.0 Glucose 254 H Lactate 1.1 Potassium Carbon Dioxide Anion Gap BUN Creatinine Est GFR ( Amer) Est GFR (Non-Af Amer) POC Glucose (mg/dL) 240 H 266 H Random Glucose Calcium Phosphorus Magnesium Total Bilirubin AST ALT Alkaline Phosphatase Total Protein Albumin Globulin Albumin/Globulin Ratio Venous Blood Potassium 3.9 C. difficile Ag & Toxin 05/10/18 05/10/18 05/10/18 16:00 19:55 21:34 WBC RBC Hgb Hct MCV MCH MCHC RDW Plt Count MPV Neut % (Auto) Lymph % (Auto) [place] % (Auto) Eos % (Auto) Baso % (Auto) Neut # (Auto) Lymph # (Auto) [place] # (Auto) Eos # (Auto) Baso # (Auto) Neutrophils % (Manual) Lymphocytes % (Manual) Monocytes % (Manual) Eosinophils % (Manual) Platelet Estimate Polychromasia Hypochromasia (manual) Poikilocytosis (manual Anisocytosis (manual) Macrocytosis (manual) Ovalocytes [place] Cells pO2 VBG pH VBG pCO2 VBG HCO3 VBG Total CO2 VBG O2 Sat (Calc) VBG Base Excess VBG Potassium Sodium Chloride Glucose Lactate Potassium Carbon Dioxide Anion Gap BUN Creatinine Est GFR ( Amer) Est GFR (Non-Af Amer) POC Glucose (mg/dL) 227 H 324 H Random Glucose Calcium Phosphorus Magnesium Total Bilirubin AST ALT Alkaline Phosphatase Total Protein Albumin Globulin Albumin/Globulin Ratio Venous Blood Potassium C. difficile Ag & Toxin Negative 05/11/18 05/11/18 05/11/18 06:01 07:35 07:53 WBC 15.3 H RBC 3.34 L Hgb 10.4 L D Hct 32.9 L MCV 98.6 MCH 31.3 H MCHC 31.8 L RDW 18.1 H Plt Count 199 MPV 10.6 Neut % (Auto) 83.1 H Lymph % (Auto) 7.7 L [place] % (Auto) 8.1 Eos % (Auto) 0.7 Baso % (Auto) 0.4 Neut # (Auto) 12.7 H Lymph # (Auto) 1.2 [place] # (Auto) 1.2 H Eos # (Auto) 0.1 Baso # (Auto) 0.1 Neutrophils % (Manual) 84 H Lymphocytes % (Manual) 7 L Monocytes % (Manual) 8 Eosinophils % (Manual) 1 Platelet Estimate Normal Polychromasia Slight Hypochromasia (manual) Slight Poikilocytosis (manual Slight Anisocytosis (manual) Slight Macrocytosis (manual) Slight Ovalocytes Slight [place] Cells Slight pO2 VBG pH VBG pCO2 VBG HCO3 VBG Total CO2 VBG O2 Sat (Calc) VBG Base Excess VBG Potassium Sodium 134 Chloride 104 Glucose Lactate Potassium 3.5 L Carbon Dioxide 17 L Anion Gap 17 BUN 42 H Creatinine 5.2 H Est GFR ( Amer) 10 Est GFR (Non-Af Amer) 8 POC Glucose (mg/dL) 269 H Random Glucose 311 H Calcium 9.0 Phosphorus 3.3 Magnesium 2.0 Total Bilirubin 0.5 AST 55 H ALT 25 Alkaline Phosphatase 100 Total Protein 6.6 Albumin 3.0 L Globulin 3.6 Albumin/Globulin Ratio 0.8 L Venous Blood Potassium C. difficile Ag & Toxin Assessment & Plan - Assessment and Plan (Free Text) Assessment: Palliative consult Full Code, there is no advance directive on chart, PPS 10% I reviewed Medical records, all diagnostic studies, examined patient in the bed and discussed her condition with nursing Patient is alert, lethargic, eyes closed, unresponsive to verbal stimuli. Patient reacts to pressure over eye balls. HD at present. Skin is pale and dry, Hb 10.4. Breathing is diminished. No cough noted. Abdomen soft, hypoactive bowel sounds. No BM since admission. NPO. IVF for hydration. Anuria. On HD.B/L AKA. Sacral pressure sore, wound care on board. Neurontin 100 mg TID for Neuropathy. Patient unable to report pain Urine cultures positive Gram - rods, Falgyl and Azactam on board. WBC 15.3, afebrile BP 127/37 I spoke to patient's daughter over the phone. Family meeting scheduled for tomorrow at 2 PM. Impressions * Chronically ill lady with significantly reduced quality of life * Lethargy * At risk for malnutrition * Skin break down 2nd to limited mobility and poor nutrition * If patient remains lethargic the way of artificial feedings will need to be discussed * Patient's wishes for the end of life care are not known * Patient is unable to advocate for herself due to condition * Severity of Neuropathy is hard to evaluate, ? need for Neurontin TID Suggestions * Maintain NPO while lethargic * IV hydration * Promote skin integrity * Considering tapering down the Neurontin dose to BID * Family meeting for goals of care discussion with patient's daughter at 2 PM palliative care will continue to fallow up and assist in care planing. Thank you for the consult.
--- NOTE | 2018-05-11 11:09 | CP.PCM.PCO ---
Physician Communication Note - Physician Communication Note Physician Communication Note: Family meeting tomorrow at 2 pm
--- NOTE | 2018-05-11 19:01 | CP.PCM.PN ---
Subjective - Date & Time of Evaluation Date of Evaluation: 05/11/18 Time of Evaluation: 19:01 - Subjective Subjective: pt is seen and examined, follow up consult is dictated #[id number] stable hd tc today, uf 1 lit Objective - Vital Signs/Intake and Output Vital Signs (last 24 hours): Temp Pulse Resp BP Pulse Ox 98.3 F 78 11 L 109/34 L 100 05/11/18 16:00 05/11/18 17:46 05/11/18 17:46 05/11/18 17:46 05/11/18 17:46 Intake and Output: 05/11/18 05/12/18 18:59 06:59 Intake Total 410 Balance 410 - Medications Medications: Current Medications Acetaminophen (Tylenol 325mg Tab) 650 mg PO Q4H PRN PRN Reason: Pain, Mild (1-3) Last Admin: 05/11/18 12:26 Dose: 650 mg Albuterol/Ipratropium (Combivent Respimat) 2 puff INH BID PRN PRN Reason: Shortness of Breath Albuterol/Ipratropium (Duoneb 3 Mg/0.5 Mg (3 Ml) Ud) 3 ml INH RQ6 [facility] Last Admin: 05/11/18 13:22 Dose: 3 ml Ascorbic Acid (Vitamin C 250 Mg Tab) 250 mg PO DAILY [facility] Last Admin: 05/11/18 10:35 Dose: 250 mg Dextrose (Dextrose 50% Inj) 0 ml IV STAT PRN; Protocol PRN Reason: Hypoglycemia Protocol Dextrose (Glutose 15) 0 gm PO ONCE PRN; Protocol PRN Reason: Hypoglycemia Protocol Gabapentin (Neurontin) 100 mg PO TID [facility] Last Admin: 05/11/18 17:36 Dose: 100 mg Glucagon (Glucagen Diagnostic Kit) 0 mg IM STAT PRN; Protocol PRN Reason: Hypoglycemia Protocol Heparin Sodium (Porcine) (Heparin) 5,000 units SC Q8 [facility] Last Admin: 05/11/18 13:39 Dose: 5,000 units Dextrose (Dextrose 5% In Water 1000 Ml) 1,000 mls @ 0 mls/hr IV .Q0M PRN; Protocol PRN Reason: Hypoglycemia Protocol Aztreonam 500 mg/ Sodium (Chloride) 50 mls @ 100 mls/hr IVPB Q12H [facility]; Protocol Last Admin: 05/11/18 12:25 Dose: 100 mls/hr Metronidazole (Flagyl) 250 mg in 50 mls @ 100 mls/hr IVPB Q8H [facility]; Protocol Last Admin: 05/11/18 13:40 Dose: 100 mls/hr Dextrose/Sodium Chloride (Dextrose 5%/0.45% Ns 1000 Ml) 1,000 mls @ 40 mls/hr IV .Q24H [facility] Last Admin: 05/10/18 19:27 Dose: 40 mls/hr Insulin Aspart (Novolog) 0 unit SC [facility]; Protocol Last Admin: 05/11/18 17:36 Dose: 1 u Insulin Glargine (Lantus) 10 unit SC HS [facility] Last Admin: 05/10/18 22:24 Dose: 10 units Mirtazapine (Remeron) 7.5 mg PO HS [facility] Last Admin: 05/10/18 22:58 Dose: 7.5 mg Rosuvastatin Calcium (Crestor) 5 mg PO HS [facility] Last Admin: 05/10/18 22:24 Dose: 5 mg - Labs Labs: 05/11/18 07:53 05/11/18 06:01 PT 12.9 SECONDS (9.7-12.2) H 05/10/18 08:24 INR 1.2 05/10/18 08:24 APTT 36 SECONDS (21-34) H 05/10/18 08:24
[2018-05-11] MEDS: Dextrose 5%/0.45% NS 1,000 ML IV SCH (19:13)
--- NOTE | 2018-05-11 22:12 | CP.PCM.PN ---
Subjective - Date & Time of Evaluation Date of Evaluation: 05/11/18 Time of Evaluation: 22:12 - Subjective Subjective: AFEBRILE, HYPOTHERMIC TMAX 97.5 BP IMPROVED,MORE RESPONSIVE C/O ABDOMINAL PAIN. Objective - Vital Signs/Intake and Output Vital Signs (last 24 hours): Temp Pulse Resp BP Pulse Ox 98.3 F 78 11 L 109/34 L 100 05/11/18 16:00 05/11/18 17:46 05/11/18 17:46 05/11/18 17:46 05/11/18 17:46 Intake and Output: 05/11/18 05/12/18 18:59 06:59 Intake Total 410 Balance 410 - Medications Medications: Current Medications Acetaminophen (Tylenol 325mg Tab) 650 mg PO Q4H PRN PRN Reason: Pain, Mild (1-3) Last Admin: 05/11/18 12:26 Dose: 650 mg Albuterol/Ipratropium (Combivent Respimat) 2 puff INH BID PRN PRN Reason: Shortness of Breath Albuterol/Ipratropium (Duoneb 3 Mg/0.5 Mg (3 Ml) Ud) 3 ml INH RQ6 [facility] Last Admin: 05/11/18 20:53 Dose: 3 ml Ascorbic Acid (Vitamin C 250 Mg Tab) 250 mg PO DAILY [facility] Last Admin: 05/11/18 10:35 Dose: 250 mg Dextrose (Dextrose 50% Inj) 0 ml IV STAT PRN; Protocol PRN Reason: Hypoglycemia Protocol Dextrose (Glutose 15) 0 gm PO ONCE PRN; Protocol PRN Reason: Hypoglycemia Protocol Gabapentin (Neurontin) 100 mg PO TID [facility] Last Admin: 05/11/18 17:36 Dose: 100 mg Glucagon (Glucagen Diagnostic Kit) 0 mg IM STAT PRN; Protocol PRN Reason: Hypoglycemia Protocol Heparin Sodium (Porcine) (Heparin) 5,000 units SC Q8 [facility] Last Admin: 05/11/18 21:17 Dose: 5,000 units Dextrose (Dextrose 5% In Water 1000 Ml) 1,000 mls @ 0 mls/hr IV .Q0M PRN; Protocol PRN Reason: Hypoglycemia Protocol Aztreonam 500 mg/ Sodium (Chloride) 50 mls @ 100 mls/hr IVPB Q12H [facility]; Protocol Last Admin: 05/11/18 21:18 Dose: 100 mls/hr Metronidazole (Flagyl) 250 mg in 50 mls @ 100 mls/hr IVPB Q8H [facility]; Protocol Last Admin: 05/11/18 21:18 Dose: 100 mls/hr Dextrose/Sodium Chloride (Dextrose 5%/0.45% Ns 1000 Ml) 1,000 mls @ 40 mls/hr IV .Q24H [facility] Last Admin: 05/11/18 19:13 Dose: 40 mls/hr Insulin Aspart (Novolog) 0 unit SC [facility]; Protocol Last Admin: 05/11/18 17:36 Dose: 1 u Insulin Glargine (Lantus) 10 unit SC [facility] Last Admin: 05/10/18 22:24 Dose: 10 units Mirtazapine (Remeron) 7.5 mg PO [facility] Last Admin: 05/11/18 21:21 Dose: 7.5 mg Rosuvastatin Calcium (Crestor) 5 mg PO [facility] Last Admin: 05/11/18 21:21 Dose: 5 mg - Labs Labs: 05/11/18 07:53 05/11/18 06:01 PT 12.9 SECONDS (9.7-12.2) H 05/10/18 08:24 INR 1.2 05/10/18 08:24 APTT 36 SECONDS (21-34) H 05/10/18 08:24 - Constitutional Appears: No Acute Distress, Confused, Chronically Ill - Head Exam Head Exam: NORMAL INSPECTION - Eye Exam Eye Exam: EOMI, PERRL. absent: Scleral icterus - ENT Exam ENT Exam: Normal Oropharynx - Neck Exam Neck Exam: Normal Inspection - Respiratory Exam Respiratory Exam: Decreased Breath Sounds, NORMAL BREATHING PATTERN - Cardiovascular Exam Cardiovascular Exam: Tachycardia, REGULAR RHYTHM, +S1, +S2 - GI/Abdominal Exam GI & Abdominal Exam: Soft, Tenderness (SUPRAPUBIC/UMBLICAL.), Hypoactive Bowel Sounds - Extremities Exam Additional comments: B/L AKA - Neurological Exam Neurological Exam: Altered, Awake, CN II-XII Intact - Psychiatric Exam Psychiatric exam: Flat Affect - Skin Skin Exam: Normal Color, Warm Assessment and Plan (1) Septic shock Assessment & Plan: IV antibiotics as ordered. Follow-up cultures to adjust antibiotics Status: Acute (2) UTI (lower urinary tract infection) Assessment & Plan: URINE CULTURE +VE GNR.-Identification pending. Continue IV Azactam 500 mg every 12 hourly Continue IV Flagyl 250 mg every 8 hourly. ADD IV GENTAMICIN 100MG X 1DOSE TONIGHT 05/12/18 'F/U GENTAMYCIN 80MG IVPB POST HD THURS. SAT. ie 05/13/18., 05/15/18 f/u cultures to adjust abx CONTACT PRECAUTIONS(HX ESBL +VE E.COLI ) Status: Acute (3) Diarrhea Assessment & Plan: STOOL C. DIFFICILE -VE Status: Resolved (4) ESRD (end stage renal disease) on dialysis Assessment & Plan: ON HD T,,S Status: Chronic (5) S/P AKA (above knee amputation) bilateral Status: Acute
[2018-05-11] MEDS: (Lantus) Insulin Glargine, Recombinant SC SCH (22:37)
--- NOTE | 2018-05-11 23:53 | CP.PCM.PN ---
Subjective - Subjective Subjective: dictated Objective - Vital Signs/Intake and Output Vital Signs (last 24 hours): Temp Pulse Resp BP Pulse Ox 98.3 F 78 11 L 109/34 L 100 05/11/18 16:00 05/11/18 17:46 05/11/18 17:46 05/11/18 17:46 05/11/18 17:46 Intake and Output: 05/11/18 1218 18:59 06:59 Intake Total 410 Balance 410 - Medications Medications: Current Medications Acetaminophen (Tylenol 325mg Tab) 650 mg PO Q4H PRN PRN Reason: Pain, Mild (1-3) Last Admin: 05/11/18 12:26 Dose: 650 mg Albuterol/Ipratropium (Combivent Respimat) 2 puff INH BID PRN PRN Reason: Shortness of Breath Albuterol/Ipratropium (Duoneb 3 Mg/0.5 Mg (3 Ml) Ud) 3 ml INH RQ6 [facility] Last Admin: 05/11/18 20:53 Dose: 3 ml Ascorbic Acid (Vitamin C 250 Mg Tab) 250 mg PO DAILY [facility] Last Admin: 05/11/18 10:35 Dose: 250 mg Dextrose (Dextrose 50% Inj) 0 ml IV STAT PRN; Protocol PRN Reason: Hypoglycemia Protocol Dextrose (Glutose 15) 0 gm PO ONCE PRN; Protocol PRN Reason: Hypoglycemia Protocol Gabapentin (Neurontin) 100 mg PO TID [facility] Last Admin: 05/11/18 17:36 Dose: 100 mg Glucagon (Glucagen Diagnostic Kit) 0 mg IM STAT PRN; Protocol PRN Reason: Hypoglycemia Protocol Heparin Sodium (Porcine) (Heparin) 5,000 units SC Q8 [facility] Last Admin: 05/11/18 21:17 Dose: 5,000 units Dextrose (Dextrose 5% In Water 1000 Ml) 1,000 mls @ 0 mls/hr IV .Q0M PRN; Protocol PRN Reason: Hypoglycemia Protocol Aztreonam 500 mg/ Sodium (Chloride) 50 mls @ 100 mls/hr IVPB Q12H [facility]; Protocol Last Admin: 05/11/18 21:18 Dose: 100 mls/hr Metronidazole (Flagyl) 250 mg in 50 mls @ 100 mls/hr IVPB Q8H [facility]; Protocol Last Admin: 05/11/18 21:18 Dose: 100 mls/hr Dextrose/Sodium Chloride (Dextrose 5%/0.45% Ns 1000 Ml) 1,000 mls @ 40 mls/hr IV .Q24H [facility] Last Admin: 05/11/18 19:13 Dose: 40 mls/hr Insulin Aspart (Novolog) 0 unit SC [facility]; Protocol Last Admin: 05/11/18 22:38 Dose: Not Given Insulin Glargine (Lantus) 10 unit SC [facility] Last Admin: 05/11/18 22:37 Dose: Not Given Mirtazapine (Remeron) 7.5 mg PO HS [facility] Last Admin: 05/11/18 21:21 Dose: 7.5 mg Rosuvastatin Calcium (Crestor) 5 mg PO [facility] Last Admin: 05/11/18 21:21 Dose: 5 mg - Labs Labs: 05/11/18 07:53 05/11/18 06:01 PT 12.9 SECONDS (9.7-12.2) H 05/10/18 08:24 INR 1.2 05/10/18 08:24 APTT 36 SECONDS (21-34) H 05/10/18 08:24
[2018-05-12] MEDS: Albuterol-Ipratrop 3 mg / 0.5 (3 ml) UD INH SCH ×4 (02:44→19:37)
--- NOTE | 2018-05-12 04:45 | PN ---
DATE: 05/11/2018 FOLLOWUP RENAL CONSULTATION LOCATION: The patient is located in ICU, bed 6. REQUESTED BY: Filemon Stiles MD REASON FOR FOLLOWUP: End-stage renal disease, sepsis, for continuation of hemodialysis. SUBJECTIVE: Mrs. Edwards is a 63-year-old elderly obese female with a past medical history significant for longstanding hypertension, diabetes, legally blind, chronic obstructive pulmonary disease, asthma, end-stage renal disease, bilateral AKA, recurrent UTI, who was sent from the [facility] with altered mental status, hypotension and fever. Now, the urine culture is positive for gram-negative rods. Blood culture is negative, on IV antibiotics. The patient is feeling much better, back to almost her baseline mental status. The patient underwent hemodialysis today, had ultrafiltration of about 1 liter. The patient is complaining of pain in the lower abdomen and also in the legs. The patient is not in acute distress. PHYSICAL EXAMINATION: VITAL SIGNS: As follows: Blood pressure 109/34, pulse 78, respirations 17, saturation 100%, temperature 98.3, T-max is 100. Height 4 feet 2 inches, weight is 139 pounds. GENERAL: Mrs. Edwards is a 63-year-old elderly obese female, moderately built, moderately nourished, not in distress. Legally blind with bilateral amputee. HEENT: Pupils are normal and reactive to light and accommodation. Conjunctivae pink. Sclerae are anicteric. Legally blind. Tongue is moist. Trachea is midline. No thyroid enlargement. LUNGS: Symmetric on both sides. Bilateral breath sounds present. Clear to auscultation. CARDIOVASCULAR SYSTEM: [place] at the fifth intercostal space, midclavicular line. S1 and S2 audible. No murmur, no gallop. ABDOMEN: Normal in appearance, soft, tympanitic. The patient has lower abdominal tenderness. No guarding. No rigidity. No hepatosplenomegaly. No abdominal bruit. CENTRAL NERVOUS SYSTEM: The patient is alert, awake, oriented x1-2. Sensory system is grossly within normal limits. Motor system, moving both upper extremities. EXTREMITIES: Bilateral lower extremity AKA. CURRENT MEDICATIONS: Include as follows: Azactam 500 mg IV every 12 hours and Combivent two puffs inhaler b.i.d., Crestor 5 mg p.o. at bedtime, DuoNeb inhaler, Flagyl 250 mg IV every 8 hours, subcutaneous heparin 5000 every 8 hours, Lantus 10 units subcutaneously at bedtime, Neurontin 100 mg p.o. t.i.d., NovoLog per sliding scale, Remeron 7.5 mg at bedtime, Tylenol, and also vitamin C 250 mg p.o. daily. LABORATORY DATA: Include as follows, as of 05/11/2018, WBC 15.3, hemoglobin 10.4, hematocrit is 32.9, platelets 199, neutrophils 84, lymphs 7, monos 8, eosinophils 1. Sodium 134, potassium 3.5, chloride 104, CO2 of 17, BUN 42, creatinine 5.2, glucose 311, calcium 9, phosphorus 3.3, and magnesium 2. Total bilirubin 0.5, AST 55, ALT 25, alkaline phosphatase 100, total protein 6.6, albumin 3. Urine culture is positive for gram-negative rods and blood culture x2 is negative and MRSA screening is negative as of 05/10/2018. ASSESSMENT AND PLAN: In summary, Mrs. Edwards is a 63-year-old elderly obese female, legally blind, bilateral amputee with lower abdominal pain. 1. End-stage renal disease. Continue hemodialysis three times a week on Thursday, , Thursday. 2. Urinary tract infection. Continue Azactam and follow up urine culture report. 3. Diabetes. 4. Status post hypotension secondary to sepsis, most likely urosepsis. Continue her current antibiotics, current medication and the patient underwent hemodialysis today without any complication, had ultrafiltration of 1 liter and continue analgesics as needed. We will follow with you. Thank you for allowing me to participate in your patient's care. Asha Saeed MD
[2018-05-12 05:43] LABS: BASO % 0.4 % (0.0-2.0); EOS # 0.3 K/uL (0.0-0.7); EOS % 3.7 % (0.0-4.0); HEMOGLOBIN 10.8 g/dL (11.0-16.0); LYMPH # 1.1 K/uL (1.0-4.3); LYMPH % 13.4 % (20.0-40.0); MEAN CELL VOLUME 97.2 fL (81.0-99.0); MEAN CORPUSCULAR HEMOGLOBIN 31.3 pg (27.0-31.0); MEAN CORPUSCULAR HGB CONC 32.3 g/dL (33.0-37.0); MEAN PLATELET VOLUME 10.1 fL (7.2-11.7); MONO # 0.7 K/uL (0.0-0.8); MONO % 7.9 % (0.0-10.0); NEUT # 6.4 K/uL (1.8-7.0); NEUT % 74.6 % (50.0-75.0); NRBC % 0.1 % (0.0-2.0); RBC 3.45 Mil/uL (3.80-5.20); RED CELL DISTRIBUTION WIDTH 17.8 % (11.5-14.5); WHITE BLOOD COUNT 8.5 K/uL (4.8-10.8)
[2018-05-12] MEDS: metroNIDAZOLE IV 250mg/50 ml 250 MG/50 ML BAG IVPB SCH ×3 (05:50→21:40)
[2018-05-12 06:08] LABS: ALB/GLOB RATIO 0.8 (1.0-2.1); ALBUMIN 2.9 g/dL (3.5-5.0); CALCIUM 8.6 mg/dl (8.6-10.4)
[2018-05-12] MEDS: (Novolog) Insulin Aspart, Recombinant 100 u/ml 10 ml vial SC SCH ×4 (07:49→21:50)
[2018-05-12] MEDS ORDERED: Potassium Chloride 20 mEq/15 ml LIQ UD PO ONE (08:43)
--- NOTE | 2018-05-12 14:36 | CP.PCM.PN ---
Subjective - Date & Time of Evaluation Date of Evaluation: 05/12/18 Time of Evaluation: 14:36 - Subjective Subjective: AFEBRILE, VSS TMAX 98.4 BP IMPROVED,MORE RESPONSIVE +VE MUCOID STOOLS PER RN PT HAS SACRAL DEC ULCERS-UNSTAGEABLE (SEEN BY WOUND CARE MR COLTON RN ) LABS REVIEWED . URNE CULTURE +VE ESBL + E.COLI S GENTAMICIN Objective - Vital Signs/Intake and Output Vital Signs (last 24 hours): Temp Pulse Resp BP Pulse Ox 97.5 F L 78 11 L 109/34 L 100 05/12/18 04:00 05/11/18 17:46 05/11/18 17:46 05/11/18 17:46 05/12/18 04:00 Intake and Output: 05/12/18 05/12/18 06:59 18:59 Intake Total 40 Balance 40 - Medications Medications: Current Medications Acetaminophen (Tylenol 325mg Tab) 650 mg PO Q4H PRN PRN Reason: Pain, Mild (1-3) Last Admin: 05/12/18 07:45 Dose: 650 mg Albuterol/Ipratropium (Combivent Respimat) 2 puff INH BID PRN PRN Reason: Shortness of Breath Albuterol/Ipratropium (Duoneb 3 Mg/0.5 Mg (3 Ml) Ud) 3 ml INH RQ6 [facility] Last Admin: 05/12/18 14:02 Dose: 3 ml Ascorbic Acid (Vitamin C 250 Mg Tab) 250 mg PO DAILY [facility] Last Admin: 05/12/18 10:24 Dose: 250 mg Dextrose (Dextrose 50% Inj) 0 ml IV STAT PRN; Protocol PRN Reason: Hypoglycemia Protocol Dextrose (Glutose 15) 0 gm PO ONCE PRN; Protocol PRN Reason: Hypoglycemia Protocol Gabapentin (Neurontin) 100 mg PO TID [facility] Last Admin: 05/12/18 13:55 Dose: 100 mg Glucagon (Glucagen Diagnostic Kit) 0 mg IM STAT PRN; Protocol PRN Reason: Hypoglycemia Protocol Heparin Sodium (Porcine) (Heparin) 5,000 units SC Q8 [facility] Last Admin: 05/12/18 13:55 Dose: 5,000 units Dextrose (Dextrose 5% In Water 1000 Ml) 1,000 mls @ 0 mls/hr IV .Q0M PRN; Protocol PRN Reason: Hypoglycemia Protocol Metronidazole (Flagyl) 250 mg in 50 mls @ 100 mls/hr IVPB Q8H [facility]; Protocol Last Admin: 05/12/18 13:54 Dose: 100 mls/hr Dextrose/Sodium Chloride (Dextrose 5%/0.45% Ns 1000 Ml) 1,000 mls @ 40 mls/hr IV .Q24H [facility] Last Admin: 05/11/18 19:13 Dose: 40 mls/hr Gentamicin Sulfate 80 mg/ (Sodium Chloride) 102 mls @ 100 mls/hr IVPB QOD6 [facility]; Protocol Stop: 05/15/18 19:02 Vancomycin HCl/Dextrose (Vancocin) 500 mg in 100 mls @ 100 mls/hr IVPB TTS [facility] Stop: 05/18/18 10:01 Insulin Aspart (Novolog) 0 unit SC ACHS [facility]; Protocol Last Admin: 05/12/18 11:50 Dose: Not Given Insulin Glargine (Lantus) 10 unit SC HS [facility] Last Admin: 05/11/18 22:37 Dose: Not Given Mirtazapine (Remeron) 7.5 mg PO HS [facility] Last Admin: 05/11/18 21:21 Dose: 7.5 mg Rosuvastatin Calcium (Crestor) 5 mg PO HS [facility] Last Admin: 05/11/18 21:21 Dose: 5 mg - Labs Labs: 05/12/18 05:37 05/12/18 05:35 PT 12.9 SECONDS (9.7-12.2) H 05/10/18 08:24 INR 1.2 05/10/18 08:24 APTT 36 SECONDS (21-34) H 05/10/18 08:24 - Constitutional Appears: No Acute Distress, Chronically Ill - Head Exam Head Exam: NORMAL INSPECTION - Eye Exam Eye Exam: EOMI, PERRL - ENT Exam ENT Exam: Normal Oropharynx - Neck Exam Neck Exam: Normal Inspection - Respiratory Exam Respiratory Exam: Decreased Breath Sounds - Cardiovascular Exam Cardiovascular Exam: Tachycardia, +S1, +S2 - GI/Abdominal Exam GI & Abdominal Exam: Soft, Tenderness (+VE SUPRAPUBIC), Hypoactive Bowel Sounds - Extremities Exam Additional comments: B/L AKA. - Neurological Exam Neurological Exam: Awake, CN II-XII Intact, Oriented x3 - Psychiatric Exam Psychiatric exam: Normal Mood - Skin Skin Exam: Normal Color, Warm (+VE SACRAL DEC ULCER UNSTAGEABLE.) Assessment and Plan (1) Septic shock Status: Acute (2) UTI (lower urinary tract infection) Assessment & Plan: URINE CULTURE +VE ESBL +VE E. COLI S-GENT.MERREM.TMP/SMX DC IV AZACTAM Continue IV Flagyl 250 mg every 8 hourly. ADD IV GENTAMICIN 100MG X 1DOSE TONIGHT 05/12/18 'F/U GENTAMYCIN 80MG IVPB POST HD THURS. SAT. ie 05/13/18., 05/15/18 f/u cultures to adjust abx Status: Acute (3) ESRD (end stage renal disease) on dialysis Status: Chronic (4) S/P AKA (above knee amputation) bilateral Status: Acute (5) Decubitus ulcer, unstageable Assessment & Plan: WOUND CARE . SEEN BY MR [employer] TECHNICIAN. WOUND CULTURE. ON IV ABX IV FLAGYL 250MG IV Q8HRLY 05/11/18 ADD IV VANCOMYCIN 1GM POST HD TTS X 6 DOSES ( STARTING 05/13/18 ) Status: Acute
--- NOTE | 2018-05-12 14:53 | CP.PCM.PN ---
Subjective - Date & Time of Evaluation Date of Evaluation: 05/12/18 Time of Evaluation: 14:50 - Subjective Subjective: Patient is more alert today, still confused. Able to recognized her children but is asking about her who 19 years ago. Patient tolerates her food. She has only lower dentures as she lost lower dentures at [facility] as per son's statement. Pressure sorrs remain large, wound nurse on board. last Hd yesterday, BUN/ [place]im [place] are 9.0/3.0 Objective - Vital Signs/Intake and Output Vital Signs (last 24 hours): Temp Pulse Resp BP Pulse Ox 97.5 F L 78 11 L 109/34 L 100 05/12/18 04:00 05/11/18 17:46 05/11/18 17:46 05/11/18 17:46 05/12/18 04:00 Intake and Output: 05/12/18 05/12/18 06:59 18:59 Intake Total 40 Balance 40 - Medications Medications: Current Medications Acetaminophen (Tylenol 325mg Tab) 650 mg PO Q4H PRN PRN Reason: Pain, Mild (1-3) Last Admin: 05/12/18 07:45 Dose: 650 mg Albuterol/Ipratropium (Combivent Respimat) 2 puff INH BID PRN PRN Reason: Shortness of Breath Albuterol/Ipratropium (Duoneb 3 Mg/0.5 Mg (3 Ml) Ud) 3 ml INH RQ6 [facility] Last Admin: 05/12/18 14:02 Dose: 3 ml Ascorbic Acid (Vitamin C 250 Mg Tab) 250 mg PO DAILY [facility] Last Admin: 05/12/18 10:24 Dose: 250 mg Dextrose (Dextrose 50% Inj) 0 ml IV STAT PRN; Protocol PRN Reason: Hypoglycemia Protocol Dextrose (Glutose 15) 0 gm PO ONCE PRN; Protocol PRN Reason: Hypoglycemia Protocol Gabapentin (Neurontin) 100 mg PO TID [facility] Last Admin: 05/12/18 13:55 Dose: 100 mg Glucagon (Glucagen Diagnostic Kit) 0 mg IM STAT PRN; Protocol PRN Reason: Hypoglycemia Protocol Heparin Sodium (Porcine) (Heparin) 5,000 units SC Q8 [facility] Last Admin: 05/12/18 13:55 Dose: 5,000 units Dextrose (Dextrose 5% In Water 1000 Ml) 1,000 mls @ 0 mls/hr IV .Q0M PRN; Protocol PRN Reason: Hypoglycemia Protocol Metronidazole (Flagyl) 250 mg in 50 mls @ 100 mls/hr IVPB Q8H [facility]; Protocol Last Admin: 05/12/18 13:54 Dose: 100 mls/hr Dextrose/Sodium Chloride (Dextrose 5%/0.45% Ns 1000 Ml) 1,000 mls @ 40 mls/hr IV .Q24H [facility] Last Admin: 05/11/18 19:13 Dose: 40 mls/hr Gentamicin Sulfate 80 mg/ (Sodium Chloride) 102 mls @ 100 mls/hr IVPB QOD6 [facility]; Protocol Stop: 05/15/18 19:02 Vancomycin HCl/Dextrose (Vancocin) 500 mg in 100 mls @ 100 mls/hr IVPB TTS [facility] Stop: 05/18/18 10:01 Insulin Aspart (Novolog) 0 unit SC ACHS [facility]; Protocol Last Admin: 05/12/18 11:50 Dose: Not Given Insulin Glargine (Lantus) 10 unit SC HS [facility] Last Admin: 05/11/18 22:37 Dose: Not Given Mirtazapine (Remeron) 7.5 mg PO HS [facility] Last Admin: 05/11/18 21:21 Dose: 7.5 mg Rosuvastatin Calcium (Crestor) 5 mg PO HS [facility] Last Admin: 05/11/18 21:21 Dose: 5 mg - Labs Labs: 05/12/18 05:37 05/12/18 05:35 PT 12.9 SECONDS (9.7-12.2) H 05/10/18 08:24 INR 1.2 05/10/18 08:24 APTT 36 SECONDS (21-34) H 05/10/18 08:24 - Constitutional Appears: Chronically Ill - Head Exam Head Exam: ATRAUMATIC, NORMAL INSPECTION, NORMOCEPHALIC - Eye Exam Eye Exam: EOMI, Normal appearance, PERRL Pupil Exam: NORMAL ACCOMODATION, PERRL - ENT Exam ENT Exam: Mucous Membranes Moist, Normal Exam - Neck Exam Neck Exam: Full ROM, Normal Inspection - Respiratory Exam Respiratory Exam: Decreased Breath Sounds, NORMAL BREATHING PATTERN - Cardiovascular Exam Cardiovascular Exam: Irregular Rhythm - GI/Abdominal Exam GI & Abdominal Exam: Normal Bowel Sounds - Rectal Exam Rectal Exam: Deferred - Exam Additional comments: On HD - Back Exam Additional comments: large sacral pressure sore - Neurological Exam Neurological Exam: Alert, Altered Neuro motor strength exam: Left Upper Extremity: 2/1, Right Upper Extremity: 2/1, Left Lower Extremity: 0, Right Lower Extremity: 0 - Psychiatric Exam Psychiatric exam: Flat Affect - Skin Skin Exam: Pallor Additional comments: scaral pressure sore Assessment and Plan - Assessment and Plan (Free Text) Assessment: Goals of care discussed with patient's son Mr. Edwards. I reviewed patient's clinical condition and elicited his understanding. He expressed angry attitude at first being concerned with his mother's sacral pressure sore. After long and detailed discussion Mr. Edwrads understood that his mother's condition was result of her over all complex medical Hx. he further talked about patient abusing alcohol and smoking heavily. I offered support. Further Mr. Edwards verbalized his goals for his mother increased comfort. I offered more teaching on sacral pressure sore. Code status discussed. Mr. Edwards said he was POA and the only Medical decision maker, but did not have document to prove it. Later on , his sister confirmed his statement. Mr. Edwards stated his mother used to tell him no to have her life prolonged on life support if her condition worsens. She preferred natural . POLST introduced. Mr. Edwards chose DNR/DNI. I shared this with his sister who came in just after he left, and with ICU team. Impression * Confusion * Body image disturbance * Large pressure sore * Needs max assistance with ADLs * Difficulties chewing due to lost dentures * Unable to advocate for her self * Son, who is POA advocates for natural as it was his mother wish Suggestions * Reorient patient upon each interaction * Assist with ADls * Aggressive sacral pressure treatment with frequent repositioning and air mattress use * DNR/DNI * Discharge planing to [place] when stable * POLST on chart Palliative care will sign off at this time. Advance care planing 46 min
[2018-05-12] MEDS: Dextrose 5%/0.45% NS 1,000 ML IV SCH (17:48)
--- NOTE | 2018-05-12 19:19 | CP.PCM.PN ---
Subjective - Date & Time of Evaluation Date of Evaluation: 05/12/18 Time of Evaluation: 19:19 - Subjective Subjective: pt is seen and examined, follow up consult is dictated #[id number] Objective - Vital Signs/Intake and Output Vital Signs (last 24 hours): Temp Pulse Resp BP Pulse Ox 97.3 F L 89 15 113/88 100 05/12/18 16:00 05/12/18 16:00 05/12/18 16:00 05/12/18 16:00 05/12/18 16:00 - Medications Medications: Current Medications Acetaminophen (Tylenol 325mg Tab) 650 mg PO Q4H PRN PRN Reason: Pain, Mild (1-3) Last Admin: 05/12/18 16:19 Dose: 650 mg Albuterol/Ipratropium (Combivent Respimat) 2 puff INH BID PRN PRN Reason: Shortness of Breath Albuterol/Ipratropium (Duoneb 3 Mg/0.5 Mg (3 Ml) Ud) 3 ml INH RQ6 [facility] Last Admin: 05/12/18 14:02 Dose: 3 ml Ascorbic Acid (Vitamin C 250 Mg Tab) 250 mg PO DAILY [facility] Last Admin: 05/12/18 10:24 Dose: 250 mg Dextrose (Dextrose 50% Inj) 0 ml IV STAT PRN; Protocol PRN Reason: Hypoglycemia Protocol Dextrose (Glutose 15) 0 gm PO ONCE PRN; Protocol PRN Reason: Hypoglycemia Protocol Gabapentin (Neurontin) 100 mg PO TID [facility] Last Admin: 05/12/18 17:09 Dose: 100 mg Glucagon (Glucagen Diagnostic Kit) 0 mg IM STAT PRN; Protocol PRN Reason: Hypoglycemia Protocol Heparin Sodium (Porcine) (Heparin) 5,000 units SC Q8 [facility] Last Admin: 05/12/18 13:55 Dose: 5,000 units Dextrose (Dextrose 5% In Water 1000 Ml) 1,000 mls @ 0 mls/hr IV .Q0M PRN; Protocol PRN Reason: Hypoglycemia Protocol Metronidazole (Flagyl) 250 mg in 50 mls @ 100 mls/hr IVPB Q8H [facility]; Protocol Last Admin: 05/12/18 13:54 Dose: 100 mls/hr Dextrose/Sodium Chloride (Dextrose 5%/0.45% Ns 1000 Ml) 1,000 mls @ 40 mls/hr IV .Q24H [facility] Last Admin: 05/12/18 17:48 Dose: 40 mls/hr Gentamicin Sulfate 80 mg/ (Sodium Chloride) 102 mls @ 100 mls/hr IVPB QOD6 [facility]; Protocol Stop: 05/15/18 19:02 Vancomycin HCl/Dextrose (Vancocin) 500 mg in 100 mls @ 100 mls/hr IVPB TTS [facility] Stop: 05/18/18 10:01 Insulin Aspart (Novolog) 0 unit SC ACHS [facility]; Protocol Last Admin: 05/12/18 17:08 Dose: 1 u Insulin Glargine (Lantus) 10 unit SC HS [facility] Last Admin: 05/11/18 22:37 Dose: Not Given Mirtazapine (Remeron) 7.5 mg PO HS [facility] Last Admin: 05/11/18 21:21 Dose: 7.5 mg Rosuvastatin Calcium (Crestor) 5 mg PO HS [facility] Last Admin: 05/11/18 21:21 Dose: 5 mg Tramadol HCl (Ultram) 25 mg PO TID PRN PRN Reason: Pain, moderate (4-7) - Labs Labs: 05/12/18 05:37 05/12/18 05:35 PT 12.9 SECONDS (9.7-12.2) H 05/10/18 08:24 INR 1.2 05/10/18 08:24 APTT 36 SECONDS (21-34) H 05/10/18 08:24
[2018-05-12] MEDS: (Lantus) Insulin Glargine, Recombinant SC SCH (21:36)
[2018-05-12] MEDS: Tramadol 25 mg PO PRN (21:38)
[2018-05-13] MEDS: Albuterol-Ipratrop 3 mg / 0.5 (3 ml) UD INH SCH ×4 (02:45→19:47)
--- NOTE | 2018-05-13 03:14 | PN ---
DATE: 05/12/2018 SUBJECTIVE: The patient is hemodynamically more stable. Blood pressure is up. She is on antibiotics. She has been seen by ID. She is in ICU, not on mechanical ventilator. PHYSICAL EXAMINATION: VITAL SIGNS: Blood pressure 128/77, pulse 98, respiratory rate 14, and temperature 99. LUNGS: Clear. CARDIOVASCULAR SYSTEM: S1 and S2, regular. ABDOMEN: Soft. ASSESSMENT: 1. Multidrug-resistant urinary tract infection with Escherichia coli, which is sensitive to all the meropenem, Zosyn, and Bactrim, and THE PATIENT IS ALLERGIC TO MEROPENEM AND IMIPENEM. 2. Hypertension. 3. Diabetes. 4. End-stage renal disease, on hemodialysis. PLAN: Continue antibiotics. Monitor the patient. Filemon Stiles MD
--- NOTE | 2018-05-13 04:36 | PN ---
DATE: 05/12/2018 SUBJECTIVE: The patient is afebrile. Now, she is more alert and she is complaining of bilateral leg pain, more in the right leg. The patient has a wound on the back. PHYSICAL EXAMINATION: VITAL SIGNS: Blood pressure 141/50, pulse 87, respiratory rate 15, and temperature 98. LUNGS: Clear. CARDIOVASCULAR SYSTEM: S1 and S2 are regular. EXTREMITIES: Bilateral AKA, stump is clean. CENTRAL NERVOUS SYSTEM: Awake and alert. ASSESSMENT: 1. Urosepsis, septicemia. 2. Type 2 diabetes. 3. Hypertension. 4. Chronic kidney disease, on hemodialysis. PLAN: Continue current medications. Monitor the patient. Filemon Stiles MD
--- NOTE | 2018-05-13 05:06 | HP ---
CHIEF COMPLAINT: Fever and chills. HISTORY OF PRESENT ILLNESS: This is a 63-year-old female who is a [facility] with end-stage renal disease, on hemodialysis 3 times a week, Thursday, , and Thursday; type 2 diabetes; hypertension; hyperlipidemia; COPD; and she has a history of multiple urinary tract infection with multidrug-resistant organism and she recently was discharged from [facility] after she was treated with aztreonam for urinary tract infection. Subsequently, the patient went back to the prison, and from prison, she was transferred to with a blood pressure of 60/38, altered mental status, weak, lethargic, CBC with a fluid bolus 3 liter in the ER, and she complained of suprapubic abdominal pain, generalized weakness, and the patient could not give further details. The patient has history of prior bilateral above-knee amputations. No further details. PAST MEDICAL HISTORY: Diabetes, hypertension, hyperlipidemia, CKD on hemodialysis, peripheral neuropathy, peripheral arterial disease with bilateral above-knee amputations, and Dffke-Odldyebat-Bdeth syndrome, end-stage renal disease on hemodialysis. SOCIAL HISTORY: She is a nonsmoker, non-EtOH user. ALLERGIES: SHE IS ALLERGIC TO IMIPENEM, OXYCODONE, AND MEROPENEM. CURRENT MEDICATIONS: At prison are hydralazine, Norvasc, Crestor, Remeron, insulin, Dilaudid, Neurontin, Coreg, aspirin, vitamins, DuoNeb, , and acetylcysteine. FAMILY HISTORY: Not obtainable. PHYSICAL EXAMINATION: GENERAL: An elderly female. She is in the ICU. She is arousable. She responds with minimum answers to the questions, real brief, and she has generalized weakness. She is complaining of abdominal pain in the pelvic area. VITAL SIGNS: Blood pressure 99/35, pulse 89, respiratory rate 16, and temperature 98. SKIN: Dry. Poor turgor. HEENT: Atraumatic and normocephalic. Positive pallor. Negative jaundice. Extraocular movements are intact. NECK: Supple. No JVD. No lymph nodes. CHEST WALL: Bilateral symmetrical expansion. No deformity. BREASTS: No masses. LUNGS: Clear. No rales. No rhonchi. ABDOMEN: Soft and nontender. Suprapubic tenderness. RECTAL: Unable to perform. PELVIC: Unable to perform. EXTREMITIES: Bilateral AKA, stumps are clean. CENTRAL NERVOUS SYSTEM: Arousable, lethargic. ASSESSMENT: 1. Septic shock. 2. Urinary tract infection with systemic bacteremia versus septicemia. 3. Type 2 diabetes. 4. End-stage renal disease, on hemodialysis. PLAN: Admit. Detailed orders written. Seen and examined. Filemon Stiles MD
[2018-05-13] MEDS: metroNIDAZOLE IV 250mg/50 ml 250 MG/50 ML BAG IVPB SCH ×3 (06:01→21:14)
[2018-05-13 06:16] LABS: BASO # 0.1 K/uL (0.0-0.2); BASO % 0.9 % (0.0-2.0); EOS # 0.4 K/uL (0.0-0.7); EOS % 4.1 % (0.0-4.0); HEMOGLOBIN 9.7 g/dL (11.0-16.0); LYMPH # 1.4 K/uL (1.0-4.3); LYMPH % 16.5 % (20.0-40.0); MEAN CELL VOLUME 98.2 fL (81.0-99.0); MEAN CORPUSCULAR HEMOGLOBIN 31.6 pg (27.0-31.0); MEAN CORPUSCULAR HGB CONC 32.2 g/dL (33.0-37.0); MEAN PLATELET VOLUME 10.1 fL (7.2-11.7); MONO # 0.8 K/uL (0.0-0.8); MONO % 9.5 % (0.0-10.0); NEUT # 5.9 K/uL (1.8-7.0); NRBC % 0.1 % (0.0-2.0); RBC 3.08 Mil/uL (3.80-5.20); RED CELL DISTRIBUTION WIDTH 18.7 % (11.5-14.5); WHITE BLOOD COUNT 8.6 K/uL (4.8-10.8)
--- NOTE | 2018-05-13 06:26 | PN ---
DATE: 05/12/2018 FOLLOWUP RENAL CONSULTATION LOCATION: The patient is located in ICU, bed 6. REQUESTED BY: Filemon Stiles MD REASON FOR FOLLOWUP: End-stage renal disease, sepsis. SUBJECTIVE: Mrs. Edwards is a 63-year-old elderly, obese female with a past medical history significant for longstanding hypertension, diabetes, end-stage renal disease, COPD, asthma, bilateral AKA, end-stage renal disease, on hemodialysis three times a week Thursday, , Thursday for the last two years. The [facility] with weakness, hypotension, and fever, and found to have gram-negative rods in the urine, identified as E. Coli positive, ESBL positive, and blood cultures are negative so far. The patient is not in acute distress. The patient is almost back to her baseline mental status. OBJECTIVE: VITAL SIGNS: As follows: Blood pressure 113/88, pulse 89, respirations 15, temperature 97.3, saturation 100%, height 4 feet 2 inches and weight is 139 pounds. GENERAL: Mrs. Edwards is a 63-year-old elderly obese female with bilateral amputee, not in distress, moderately built, moderately nourished. HEENT: Pupils normal and reactive to light and accommodation. Conjunctivae pink. Sclerae anicteric. The patient is legally blind. Tongue is moist, and trachea is midline. LUNGS: Symmetric on both sides. Bilateral breath sounds present. Clear to auscultation. CARDIOVASCULAR SYSTEM: [place] at the fifth intercostal space, midclavicular line. S1, S2 audible. No murmur or gallop. ABDOMEN: Normal in appearance. Soft, tympanitic. No guarding, no rigidity. Mild suprapubic tenderness present. No abdominal bruit. CENTRAL NERVOUS SYSTEM: The patient is alert, awake, oriented times one to two. Sensory system is grossly within normal limits. Motor system, moving both upper and lower extremities, status post bilateral AKA. CURRENT MEDICATIONS: Include as follows: Combivent and Crestor, Flagyl IV 250 mg every 8 hours, DuoNeb inhaler, gentamicin 80 mg IV piggyback, subcu heparin 5000 units every 8 hours, Lantus 10,000 units subcu at bedtime, Neurontin, NovoLog, Remeron, Ultram, vancomycin 500 mg three times a week, ascorbic acid, vitamin C 250 mg p.o. daily. LABORATORY DATA: Include as follows: As of 05/12/2018, WBC 8.5, hemoglobin 10.8, hematocrit is 33.5, platelets 176. Sodium 138, potassium 2.7, chloride 103, CO2 of 26, BUN 19, creatinine 3, glucose 110, calcium 8.6, phosphorus 2.2, magnesium 1.9. Total bili 0.3, AST 41, ALT 26, alkaline phos of 100, total protein 6.4, albumin is 2.9. Accu-Cheks 142, 155. Urine culture as of 05/10/2018, positive for E. Coli and blood culture x2 negative. MRSA screening is negative. Also, E. Coli is positive for ESBL. ASSESSMENT: In summary, Mrs. Edwards is a 63-year-old elderly female with hypertension, diabetes, chronic obstructive pulmonary disease, end-stage renal disease, bilateral amputee, recurrent urinary tract infection who was admitted with lower abdominal pain, altered mental status, hypertension, and fever; found to have urine culture positive for Escherichia coli, extended-spectrum beta-lactamases positive. 1. End-stage renal disease. Continue hemodialysis three times a week; Thursday, , Thursday. 2. Hypokalemia. The patient was supplemented potassium this morning. Agree with IV and p.o. supplement. 3. Urosepsis. 4. Diabetes. Continue her current medications as per ID recommendations. Adjust antibiotics as per the sensitivity. The patient has history of gentamicin. The patient is scheduled for hemodialysis in a.m. Repeat BMP in a.m. and magnesium level. Thank you for allowing me to participate in your patient's care. Asha Saeed MD
[2018-05-13 06:32] LABS: ALB/GLOB RATIO 0.8 (1.0-2.1); ALBUMIN 2.6 g/dL (3.5-5.0); CALCIUM 8.4 mg/dl (8.6-10.4)
[2018-05-13] MEDS: (Novolog) Insulin Aspart, Recombinant 100 u/ml 10 ml vial SC SCH ×4 (07:56→22:18)
[2018-05-13] MEDS: Tramadol 25 mg PO PRN ×3 (09:01→22:32)
[2018-05-13] MEDS ORDERED: Vancomycin 500mg/D5W 100 ml 500 MG/100 ML BAG IVPB SCH (10:00)
--- NOTE | 2018-05-13 14:30 | CP.PCM.PN ---
Subjective - Date & Time of Evaluation Date of Evaluation: 05/13/18 Time of Evaluation: 14:30 - Subjective Subjective: AFEBRILE, VSS TMAX 98.4 BP IMPROVED,MORE RESPONSIVE NO MORE DIARRHOEA PT HAS SACRAL DEC ULCERS-UNSTAGEABLE (SEEN BY WOUND CARE MR COLTON RN ) PATIENT SEEN BY PALLIATIVE CARE-NOW DNR/DNI. LABS REVIEWED . RESOLVING LEUKOCYTOSIS. SACRAL WOUND CULTURE +VE GPC URNE CULTURE +VE ESBL + E.COLI S GENTAMICIN Objective - Vital Signs/Intake and Output Vital Signs (last 24 hours): Temp Pulse Resp BP Pulse Ox 97.5 F L 102 H 18 115/83 98 05/13/18 11:05 05/13/18 13:45 05/13/18 13:45 05/13/18 13:45 05/13/18 08:00 Intake and Output: 05/13/18 05/13/18 06:59 18:59 Intake Total 740 Output Total 0 Balance 740 - Medications Medications: Current Medications Acetaminophen (Tylenol 325mg Tab) 650 mg PO Q4H PRN PRN Reason: Pain, Mild (1-3) Last Admin: 05/13/18 02:58 Dose: 650 mg Albuterol/Ipratropium (Combivent Respimat) 2 puff INH BID PRN PRN Reason: Shortness of Breath Albuterol/Ipratropium (Duoneb 3 Mg/0.5 Mg (3 Ml) Ud) 3 ml INH RQ6 [facility] Last Admin: 05/13/18 13:28 Dose: 3 ml Ascorbic Acid (Vitamin C 250 Mg Tab) 250 mg PO DAILY [facility] Last Admin: 05/13/18 09:01 Dose: 250 mg Dextrose (Dextrose 50% Inj) 0 ml IV STAT PRN; Protocol PRN Reason: Hypoglycemia Protocol Last Admin: 05/13/18 07:37 Dose: 50 ml Dextrose (Glutose 15) 0 gm PO ONCE PRN; Protocol PRN Reason: Hypoglycemia Protocol Gabapentin (Neurontin) 100 mg PO TID [facility] Last Admin: 05/13/18 12:59 Dose: 100 mg Glucagon (Glucagen Diagnostic Kit) 0 mg IM STAT PRN; Protocol PRN Reason: Hypoglycemia Protocol Heparin Sodium (Porcine) (Heparin) 5,000 units SC Q8 [facility] Last Admin: 05/13/18 13:00 Dose: 5,000 units Dextrose (Dextrose 5% In Water 1000 Ml) 1,000 mls @ 0 mls/hr IV .Q0M PRN; Protocol PRN Reason: Hypoglycemia Protocol Metronidazole (Flagyl) 250 mg in 50 mls @ 100 mls/hr IVPB Q8H [facility]; Protocol Last Admin: 05/13/18 06:01 Dose: 100 mls/hr Dextrose/Sodium Chloride (Dextrose 5%/0.45% Ns 1000 Ml) 1,000 mls @ 40 mls/hr IV .Q24H [facility] Last Admin: 05/12/18 17:48 Dose: 40 mls/hr Gentamicin Sulfate 80 mg/ (Sodium Chloride) 102 mls @ 100 mls/hr IVPB QOD6 [facility]; Protocol Stop: 05/15/18 19:02 Vancomycin HCl/Dextrose (Vancocin) 500 mg in 100 mls @ 100 mls/hr IVPB TTS [facility] Stop: 05/18/18 10:01 Insulin Aspart (Novolog) 0 unit SC ACHS [facility]; Protocol Last Admin: 05/13/18 11:39 Dose: Not Given Insulin Glargine (Lantus) 10 unit SC HS [facility] Last Admin: 05/12/18 21:36 Dose: 10 units Mirtazapine (Remeron) 7.5 mg PO HS [facility] Last Admin: 05/12/18 21:37 Dose: 7.5 mg Rosuvastatin Calcium (Crestor) 5 mg PO HS [facility] Last Admin: 05/12/18 21:37 Dose: 5 mg Tramadol HCl (Ultram) 25 mg PO TID PRN PRN Reason: Pain, moderate (4-7) Last Admin: 05/13/18 12:59 Dose: 25 mg - Labs Labs: 05/13/18 06:11 05/13/18 06:09 PT 12.9 SECONDS (9.7-12.2) H 05/10/18 08:24 INR 1.2 05/10/18 08:24 APTT 36 SECONDS (21-34) H 05/10/18 08:24 - Constitutional Appears: No Acute Distress - Head Exam Head Exam: NORMAL INSPECTION - Eye Exam Eye Exam: EOMI, PERRL - ENT Exam ENT Exam: Normal Oropharynx - Neck Exam Neck Exam: Normal Inspection - Respiratory Exam Respiratory Exam: Decreased Breath Sounds (BASES.), Clear to Ausculation Bilateral, NORMAL BREATHING PATTERN - Cardiovascular Exam Cardiovascular Exam: Tachycardia, REGULAR RHYTHM, +S1, +S2 - GI/Abdominal Exam GI & Abdominal Exam: Soft, Normal Bowel Sounds. absent: Tenderness - Extremities Exam Additional comments: B/L AKA. - Neurological Exam Neurological Exam: Awake, Oriented x3 - Psychiatric Exam Psychiatric exam: Normal Affect - Skin Skin Exam: Rash (SACRAL DECUBITUS ULCER UNSTAGEABLE.) Assessment and Plan (1) Septic shock Assessment & Plan: S/P SEPTIC SHOCK. PRESENTLY ON iv ANTIBIOTICS. Status: Acute (2) UTI (lower urinary tract infection) Assessment & Plan: URINE CULTURE +VE ESBL +VE E. COLI S-GENT.MERREM.TMP/SMX ON IV GENTAMICIN 100MG X 1DOSE TONIGHT 05/12/18 'F/U GENTAMYCIN 80MG IVPB POST HD TTS X 6 DOSES POST HD (2 WEEKS ) CONTACT PRECAUTIONS. Status: Acute (3) ESRD (end stage renal disease) on dialysis Assessment & Plan: PATIENT ON HEMODIALYSIS thursdays AND saturdays. Status: Chronic (4) S/P AKA (above knee amputation) bilateral Status: Acute (5) Decubitus ulcer, unstageable Status: Acute - Assessment and Plan (Free Text) Plan: WOUND CARE . SEEN BY MR [employer]. WOUND CULTURE -P ON IV VANCOMYCIN 500 MG IVPB POS EACH HD TTS X 9 DOSES ( 3 WEEKS, ) IV FLAGYL 250MG IV Q8HRLY 05/11/18 FOR TOTAL OF 2WEEKS- CAN CHANGE TO PO IF TOLERATED Status: Acute
--- NOTE | 2018-05-13 18:44 | CP.PCM.PN ---
Subjective - Date & Time of Evaluation Date of Evaluation: 05/13/18 Time of Evaluation: 18:43 - Subjective Subjective: pt is seen and examined, follow up consult is dictated #[id number] Objective - Vital Signs/Intake and Output Vital Signs (last 24 hours): Temp Pulse Resp BP Pulse Ox 98.2 F 84 16 153/57 H 98 05/13/18 16:00 05/13/18 16:00 05/13/18 16:00 05/13/18 16:00 05/13/18 16:00 Intake and Output: 05/13/18 05/13/18 06:59 18:59 Intake Total 740 1680 Output Total 0 0 Balance 740 1680 - Medications Medications: Current Medications Acetaminophen (Tylenol 325mg Tab) 650 mg PO Q4H PRN PRN Reason: Pain, Mild (1-3) Last Admin: 05/13/18 02:58 Dose: 650 mg Albuterol/Ipratropium (Combivent Respimat) 2 puff INH BID PRN PRN Reason: Shortness of Breath Albuterol/Ipratropium (Duoneb 3 Mg/0.5 Mg (3 Ml) Ud) 3 ml INH RQ6 [facility] Last Admin: 05/13/18 13:28 Dose: 3 ml Ascorbic Acid (Vitamin C 250 Mg Tab) 250 mg PO DAILY [facility] Last Admin: 05/13/18 09:01 Dose: 250 mg Dextrose (Dextrose 50% Inj) 0 ml IV STAT PRN; Protocol PRN Reason: Hypoglycemia Protocol Last Admin: 05/13/18 07:37 Dose: 50 ml Dextrose (Glutose 15) 0 gm PO ONCE PRN; Protocol PRN Reason: Hypoglycemia Protocol Gabapentin (Neurontin) 100 mg PO TID [facility] Last Admin: 05/13/18 17:16 Dose: 100 mg Glucagon (Glucagen Diagnostic Kit) 0 mg IM STAT PRN; Protocol PRN Reason: Hypoglycemia Protocol Heparin Sodium (Porcine) (Heparin) 5,000 units SC Q8 [facility] Last Admin: 05/13/18 13:00 Dose: 5,000 units Metronidazole (Flagyl) 250 mg in 50 mls @ 100 mls/hr IVPB Q8H [facility]; Protocol Last Admin: 05/13/18 14:36 Dose: 100 mls/hr Dextrose/Sodium Chloride (Dextrose 5%/0.45% Ns 1000 Ml) 1,000 mls @ 40 mls/hr IV .Q24H [facility] Last Admin: 05/12/18 17:48 Dose: 40 mls/hr Gentamicin Sulfate 80 mg/ (Sodium Chloride) 102 mls @ 100 mls/hr IVPB QOD6 [facility]; Protocol Stop: 05/15/18 19:02 Last Admin: 05/13/18 17:14 Dose: 100 mls/hr Vancomycin HCl/Dextrose (Vancocin) 500 mg in 100 mls @ 100 mls/hr IVPB TTS [facility] Stop: 05/18/18 10:01 Last Admin: 05/13/18 17:13 Dose: 100 mls/hr Insulin Aspart (Novolog) 0 unit SC ACHS [facility]; Protocol Last Admin: 05/13/18 16:30 Dose: Not Given Insulin Glargine (Lantus) 10 unit SC HS [facility] Last Admin: 05/12/18 21:36 Dose: 10 units Mirtazapine (Remeron) 7.5 mg PO HS [facility] Last Admin: 05/12/18 21:37 Dose: 7.5 mg Rosuvastatin Calcium (Crestor) 5 mg PO HS [facility] Last Admin: 05/12/18 21:37 Dose: 5 mg Tramadol HCl (Ultram) 25 mg PO TID PRN PRN Reason: Pain, moderate (4-7) Last Admin: 05/13/18 12:59 Dose: 25 mg - Labs Labs: 05/13/18 06:11 05/13/18 06:09 PT 12.9 SECONDS (9.7-12.2) H 05/10/18 08:24 INR 1.2 05/10/18 08:24 APTT 36 SECONDS (21-34) H 05/10/18 08:24
[2018-05-13] MEDS: Dextrose 5%/0.45% NS 1,000 ML IV SCH (19:54)
--- NOTE | 2018-05-13 22:26 | CP.PCM.PN ---
Subjective - Subjective Subjective: dictated Objective - Vital Signs/Intake and Output Vital Signs (last 24 hours): Temp Pulse Resp BP Pulse Ox 98.7 F 84 16 153/57 H 98 05/13/18 20:00 05/13/18 16:00 05/13/18 16:00 05/13/18 16:00 05/13/18 16:00 Intake and Output: 05/13/18 05/14/18 18:59 06:59 Intake Total 1680 Output Total 0 Balance 1680 - Medications Medications: Current Medications Acetaminophen (Tylenol 325mg Tab) 650 mg PO Q4H PRN PRN Reason: Pain, Mild (1-3) Last Admin: 05/13/18 02:58 Dose: 650 mg Albuterol/Ipratropium (Combivent Respimat) 2 puff INH BID PRN PRN Reason: Shortness of Breath Albuterol/Ipratropium (Duoneb 3 Mg/0.5 Mg (3 Ml) Ud) 3 ml INH RQ6 [facility] Last Admin: 05/13/18 19:47 Dose: 3 ml Ascorbic Acid (Vitamin C 250 Mg Tab) 250 mg PO DAILY [facility] Last Admin: 05/13/18 09:01 Dose: 250 mg Dextrose (Dextrose 50% Inj) 0 ml IV STAT PRN; Protocol PRN Reason: Hypoglycemia Protocol Last Admin: 05/13/18 07:37 Dose: 50 ml Dextrose (Glutose 15) 0 gm PO ONCE PRN; Protocol PRN Reason: Hypoglycemia Protocol Gabapentin (Neurontin) 100 mg PO TID [facility] Last Admin: 05/13/18 17:16 Dose: 100 mg Glucagon (Glucagen Diagnostic Kit) 0 mg IM STAT PRN; Protocol PRN Reason: Hypoglycemia Protocol Metronidazole (Flagyl) 250 mg in 50 mls @ 100 mls/hr IVPB Q8H [facility]; Protocol Last Admin: 05/13/18 21:14 Dose: 100 mls/hr Gentamicin Sulfate 80 mg/ (Sodium Chloride) 102 mls @ 100 mls/hr IVPB QOD6 [facility]; Protocol Stop: 05/15/18 19:02 Last Admin: 05/13/18 17:14 Dose: 100 mls/hr Vancomycin HCl/Dextrose (Vancocin) 500 mg in 100 mls @ 100 mls/hr IVPB TTS [facility] Stop: 05/18/18 10:01 Last Admin: 05/13/18 17:13 Dose: 100 mls/hr Insulin Aspart (Novolog) 0 unit SC ACHS [facility]; Protocol Last Admin: 05/13/18 22:18 Dose: Not Given Mirtazapine (Remeron) 7.5 mg PO HS [facility] Last Admin: 05/13/18 21:13 Dose: 7.5 mg Rosuvastatin Calcium (Crestor) 5 mg PO HS [facility] Last Admin: 05/13/18 21:14 Dose: 5 mg Tramadol HCl (Ultram) 25 mg PO TID PRN PRN Reason: Pain, moderate (4-7) - Labs Labs: 05/13/18 06:11 05/13/18 06:09 PT 12.9 SECONDS (9.7-12.2) H 05/10/18 08:24 INR 1.2 05/10/18 08:24 APTT 36 SECONDS (21-34) H 05/10/18 08:24
[2018-05-14] MEDS: Albuterol-Ipratrop 3 mg / 0.5 (3 ml) UD INH SCH ×2 (01:54→07:45)
--- NOTE | 2018-05-14 02:54 | PN ---
DATE: 05/13/2018 SUBJECTIVE: The patient is afebrile. She is on IV antibiotics, being seen by ID. No nausea, vomiting. No chest pain. No dizziness. She stump pain in the right leg. PHYSICAL EXAMINATION: VITAL SIGNS: Blood pressure 152/57, pulse 84, respiratory rate 16, temperature 98.2. LUNGS: Clear. CARDIOVASCULAR EXAM: S1, S2. Regular. ABDOMEN: Soft. ASSESSMENT: 1. Urinary tract infection complicated with multidrug resistant E. Coli and the patient is on antibiotics. 2. Hypertension. 3. Peripheral arterial disease, status post bilateral above knee amputation. 4. Diabetes. PLAN: Continue antibiotics. Monitor patient. If Infectious Disease clears the patient, [facility]. CONDITION: Guarded. Filemon Stiles MD
--- NOTE | 2018-05-14 03:59 | PN ---
DATE: 05/13/2018 FOLLOWUP RENAL CONSULTATION LOCATION: The patient is located in ICU, bed 6. REQUESTED BY: Filemon Stiles MD. REASON FOR FOLLOWUP: End-stage renal disease and continuation of the hemodialysis. SUBJECTIVE: Mrs. Edwards is a 63-year-old elderly obese female with a history of longstanding hypertension, diabetes, end-stage renal disease, bilateral amputee, bedridden with recurrent UTI who was admitted with altered mental status and fever. The patient was found to have urine culture positive for gram-negative rods and identified as E. Coli. The patient is complaining of abdominal pain and back pain. PHYSICAL EXAMINATION: GENERAL: Mrs. Edwards is a 63-year-old elderly obese female, well-built, well-nourished, not in distress. HEENT: Pupils normal and reactive to light and accommodation. Conjunctivae pink. Sclerae anicteric. The patient is legally blind. No thyroid enlargement. LUNGS: Symmetric on both sides. Bilateral breath sounds present. Clear to auscultation. CARDIOVASCULAR SYSTEM: Lavina at the fifth intercostal space, midclavicular line. S1, S2 audible. No murmur or gallop. ABDOMEN: Normal in appearance. Soft. Bowel sounds are present. No hepatosplenomegaly. The patient has [id number] lower abdominal tenderness present. CENTRAL NERVOUS SYSTEM: The patient is alert, awake, oriented x2. Sensory and motor system is grossly within normal limits. EXTREMITIES: Bilateral AKA. CURRENT MEDICATIONS: Include as follows: Combivent and Crestor, DuoNeb inhaler, Flagyl IV 250 mg every 8 hours, gentamicin 80 mg IV piggyback, gabapentin 100 mg p.o. t.i.d., NovoLog, Remeron, Tylenol, tramadol, vancomycin 500 mg 3 times a week, and ascorbic acid 250 mg p.o. daily. LABORATORY DATA: Include as follows: As of 05/13/2018, WBC 8.6, hemoglobin 9.7, hematocrit is 30.2, platelets 171. Sodium 134, potassium 3.8, chloride 104, CO2 of 20, BUN 28, creatinine 3.7, glucose 220, calcium 8.4, phosphorus 2, magnesium 1.7. Total bili 0.4, AST 44, ALT 23, alkaline phosphatase 78, total protein 6, albumin is 2.6. ASSESSMENT: In summary, Mrs. Edwards is a 63-year-old elderly obese female with a history of hypertension, diabetes, emphysema, end-stage renal disease, bilateral amputee, recurrent urinary tract infection who was admitted with altered mental status, fever, and lower abdominal pain. The patient was found to have urine culture positive for Escherichia coli and also extended-spectrum beta-lactamase positive, status post hypertension. 1. End-stage renal disease. Continue hemodialysis three times a week; Thursday, , and Thursday. The patient underwent the hemodialysis today and ultrafiltration about 0.5 liters. 2. Urinary tract infection with Escherichia coli and extended-spectrum beta-lactamase positive. Continue antibiotic as per Infectious Disease recommendation. 3. Hypertension. 4. Diabetes. 5. Emphysema. We will follow with you. Thank you for allowing me to participate in your patient's care. Continue antibiotics as per Dr. Stiles. Asha Saeed MD
[2018-05-14] MEDS: metroNIDAZOLE IV 250mg/50 ml 250 MG/50 ML BAG IVPB SCH (05:18)
[2018-05-14 06:29] LABS: BASO % 0.6 % (0.0-2.0); EOS # 0.2 K/uL (0.0-0.7); EOS % 3.1 % (0.0-4.0); HEMOGLOBIN 10.9 g/dL (11.0-16.0); LYMPH # 1.6 K/uL (1.0-4.3); LYMPH % 22.2 % (20.0-40.0); MEAN CELL VOLUME 96.9 fL (81.0-99.0); MEAN CORPUSCULAR HEMOGLOBIN 31.5 pg (27.0-31.0); MEAN CORPUSCULAR HGB CONC 32.5 g/dL (33.0-37.0); MEAN PLATELET VOLUME 10.1 fL (7.2-11.7); MONO # 0.6 K/uL (0.0-0.8); MONO % 8.5 % (0.0-10.0); NEUT # 4.9 K/uL (1.8-7.0); NEUT % 65.6 % (50.0-75.0); NRBC % 0.1 % (0.0-2.0); RBC 3.46 Mil/uL (3.80-5.20); RED CELL DISTRIBUTION WIDTH 18.6 % (11.5-14.5); WHITE BLOOD COUNT 7.4 K/uL (4.8-10.8)
[2018-05-14 06:53] LABS: ALB/GLOB RATIO 0.9 (1.0-2.1); ALBUMIN 3.1 g/dL (3.5-5.0); CALCIUM 8.2 mg/dl (8.6-10.4)
[2018-05-14] MEDS: (Novolog) Insulin Aspart, Recombinant 100 u/ml 10 ml vial SC SCH ×3 (07:30→16:30)
[2018-05-14] MEDS: Tramadol 25 mg PO PRN ×2 (08:38→17:05)
--- NOTE | 2018-05-14 11:04 | CP.PCM.PN ---
Subjective - Date & Time of Evaluation Date of Evaluation: 05/14/18 Time of Evaluation: 11:04 - Subjective Subjective: pt is seen and examined, follow up consult is dictated #[id number] Objective - Vital Signs/Intake and Output Vital Signs (last 24 hours): Temp Pulse Resp BP Pulse Ox 98.5 F 100 H 14 158/21 H 99 05/14/18 04:48 05/14/18 04:00 05/14/18 04:00 05/14/18 00:00 05/14/18 04:00 Intake and Output: 05/14/18 05/14/18 06:59 18:59 Intake Total 690 Balance 690 - Medications Medications: Current Medications Acetaminophen (Tylenol 325mg Tab) 650 mg PO Q4H PRN PRN Reason: Pain, Mild (1-3) Last Admin: 05/14/18 09:30 Dose: 650 mg Albuterol/Ipratropium (Combivent Respimat) 2 puff INH BID PRN PRN Reason: Shortness of Breath Albuterol/Ipratropium (Duoneb 3 Mg/0.5 Mg (3 Ml) Ud) 3 ml INH RQ6 [facility] Last Admin: 05/14/18 07:45 Dose: 3 ml Ascorbic Acid (Vitamin C 250 Mg Tab) 250 mg PO DAILY [facility] Last Admin: 05/14/18 09:30 Dose: 250 mg Dextrose (Dextrose 50% Inj) 0 ml IV STAT PRN; Protocol PRN Reason: Hypoglycemia Protocol Last Admin: 05/13/18 07:37 Dose: 50 ml Dextrose (Glutose 15) 0 gm PO ONCE [facility]; Protocol PRN Reason: Hypoglycemia Protocol Gabapentin (Neurontin) 100 mg PO TID [facility] Last Admin: 05/14/18 09:30 Dose: 100 mg Glucagon (Glucagen Diagnostic Kit) 0 mg IM STAT PRN; Protocol PRN Reason: Hypoglycemia Protocol Metronidazole (Flagyl) 250 mg in 50 mls @ 100 mls/hr IVPB Q8H [facility]; Protocol Last Admin: 05/14/18 05:18 Dose: 100 mls/hr Gentamicin Sulfate 80 mg/ (Sodium Chloride) 102 mls @ 100 mls/hr IVPB QOD6 [facility]; Protocol Stop: 05/15/18 19:02 Last Admin: 05/13/18 17:14 Dose: 100 mls/hr Vancomycin HCl/Dextrose (Vancocin) 500 mg in 100 mls @ 100 mls/hr IVPB TTS [facility] Stop: 05/18/18 10:01 Last Admin: 05/13/18 17:13 Dose: 100 mls/hr Insulin Aspart (Novolog) 0 unit SC ACHS [facility]; Protocol Last Admin: 05/13/18 22:18 Dose: Not Given Mirtazapine (Remeron) 7.5 mg PO HS [facility] Last Admin: 05/13/18 21:13 Dose: 7.5 mg Rosuvastatin Calcium (Crestor) 5 mg PO HS [facility] Last Admin: 05/13/18 21:14 Dose: 5 mg Tramadol HCl (Ultram) 25 mg PO TID PRN PRN Reason: Pain, moderate (4-7) Last Admin: 05/14/18 08:38 Dose: 25 mg - Labs Labs: 05/14/18 06:21 05/14/18 06:21 PT 12.9 SECONDS (9.7-12.2) H 05/10/18 08:24 INR 1.2 05/10/18 08:24 APTT 36 SECONDS (21-34) H 05/10/18 08:24
--- NOTE | 2018-05-14 13:03 | CP.PCM.PN ---
Subjective - Date & Time of Evaluation Date of Evaluation: 05/14/18 Time of Evaluation: 13:03 - Subjective Subjective: AFEBRILE, VSS TMAX 98.4 MORE RESPONSIVE NO MORE DIARRHOEA PT HAS SACRAL DEC ULCERS-UNSTAGEABLE Objective - Vital Signs/Intake and Output Vital Signs (last 24 hours): Temp Pulse Resp BP Pulse Ox 98.3 F 79 14 158/21 H 99 05/14/18 12:00 05/14/18 12:00 05/14/18 12:00 05/14/18 00:00 05/14/18 12:00 Intake and Output: 05/14/18 05/14/18 06:59 18:59 Intake Total 690 400 Balance 690 400 - Medications Medications: Current Medications Acetaminophen (Tylenol 325mg Tab) 650 mg PO Q4H PRN PRN Reason: Pain, Mild (1-3) Last Admin: 05/14/18 09:30 Dose: 650 mg Albuterol/Ipratropium (Combivent Respimat) 2 puff INH BID PRN PRN Reason: Shortness of Breath Albuterol/Ipratropium (Duoneb 3 Mg/0.5 Mg (3 Ml) Ud) 3 ml INH RQ6 [facility] Last Admin: 05/14/18 07:45 Dose: 3 ml Ascorbic Acid (Vitamin C 250 Mg Tab) 250 mg PO DAILY [facility] Last Admin: 05/14/18 09:30 Dose: 250 mg Dextrose (Dextrose 50% Inj) 0 ml IV STAT PRN; Protocol PRN Reason: Hypoglycemia Protocol Last Admin: 05/13/18 07:37 Dose: 50 ml Dextrose (Glutose 15) 0 gm PO ONCE PRN; Protocol PRN Reason: Hypoglycemia Protocol Gabapentin (Neurontin) 100 mg PO TID [facility] Last Admin: 05/14/18 09:30 Dose: 100 mg Glucagon (Glucagen Diagnostic Kit) 0 mg IM STAT PRN; Protocol PRN Reason: Hypoglycemia Protocol Gentamicin Sulfate 80 mg/ (Sodium Chloride) 102 mls @ 100 mls/hr IVPB QOD6 [facility]; Protocol Stop: 05/15/18 19:02 Last Admin: 05/13/18 17:14 Dose: 100 mls/hr Vancomycin HCl/Dextrose (Vancocin) 500 mg in 100 mls @ 100 mls/hr IVPB TTS [facility] Stop: 05/18/18 10:01 Last Admin: 05/13/18 17:13 Dose: 100 mls/hr Insulin Aspart (Novolog) 0 unit SC ACHS [facility]; Protocol Last Admin: 05/13/18 22:18 Dose: Not Given Metronidazole (Flagyl) 250 mg PO BID [facility]; Protocol Stop: 05/28/18 18:01 Mirtazapine (Remeron) 7.5 mg PO HS [facility] Last Admin: 05/13/18 21:13 Dose: 7.5 mg Rosuvastatin Calcium (Crestor) 5 mg PO HS [facility] Last Admin: 05/13/18 21:14 Dose: 5 mg Tramadol HCl (Ultram) 25 mg PO TID PRN PRN Reason: Pain, moderate (4-7) Last Admin: 05/14/18 08:38 Dose: 25 mg - Labs Labs: 05/14/18 06:21 05/14/18 06:21 PT 12.9 SECONDS (9.7-12.2) H 05/10/18 08:24 INR 1.2 05/10/18 08:24 APTT 36 SECONDS (21-34) H 05/10/18 08:24 - Constitutional Appears: No Acute Distress, Chronically Ill - Head Exam Head Exam: NORMAL INSPECTION - Eye Exam Eye Exam: EOMI, PERRL - ENT Exam ENT Exam: Normal Oropharynx - Neck Exam Neck Exam: Normal Inspection - Respiratory Exam Respiratory Exam: Decreased Breath Sounds, NORMAL BREATHING PATTERN - GI/Abdominal Exam GI & Abdominal Exam: Soft, Normal Bowel Sounds. absent: Tenderness (b/l amputation.) - Neurological Exam Neurological Exam: Awake, CN II-XII Intact - Psychiatric Exam Psychiatric exam: Flat Affect - Skin Skin Exam: Normal Color, Warm Assessment and Plan (1) Septic shock Status: Acute (2) UTI (lower urinary tract infection) Assessment & Plan: URINE CULTURE +VE ESBL +VE E. COLI S-GENT.MERREM.TMP/SMX ON IV GENTAMICIN 100MG X 1DOSE TONIGHT 05/12/18 'F/U GENTAMYCIN 80MG IVPB POST HD TTS X 6 DOSES POST HD (2 WEEKS ) CONTACT PRECAUTIONS. Status: Acute (3) ESRD (end stage renal disease) on dialysis Status: Chronic (4) S/P AKA (above knee amputation) bilateral Status: Acute (5) Decubitus ulcer, unstageable Status: Acute - Assessment and Plan (Free Text) Plan: wound culture +ve enterococcus feacalis/ GNR. ON IV VANCOMYCIN 500 MG IVPB POS EACH HD TTS X 9 DOSES ( 3 WEEKS, ) IV FLAGYL 250MG IV Q8HRLY 05/11/18 FOR TOTAL OF 2WEEKS- CAN CHANGE TO PO IF TOLERATED. CASE DISCUSSED WITH CTC OPERATOR .
--- NOTE | 2018-05-14 15:36 | PN ---
DATE: 05/14/2018 SUBJECTIVE: Her new urine culture is positive for Enterococcus faecalis and E. coli. The patient is afebrile. She is on antibiotics. She gets pain at times. She denies any nausea or vomiting. PHYSICAL EXAMINATION: VITAL SIGNS: Blood pressure , pulse 100, respiratory rate 14, and temperature 98.5. LUNGS: Clear. CARDIOVASCULAR SYSTEM: S1 and S2 regular. ABDOMEN: Soft. ASSESSMENT: 1. Complicated urinary tract infection with multiple organism with multidrug resistant germs. 2. Hypertension. 3. Diabetes. PLAN: Continue current medication. Monitor the patient. Filemon Stiles MD
--- NOTE | 2018-05-14 16:54 | CP.PCM.PN ---
Subjective - Date & Time of Evaluation Date of Evaluation: 05/14/18 Time of Evaluation: 11:00 - Subjective Subjective: a3wake, more responsive, no acute distress. Objective - Vital Signs/Intake and Output Vital Signs (last 24 hours): Temp Pulse Resp BP Pulse Ox 98.3 F 79 14 158 H 99 05/14/18 12:00 05/14/18 12:00 05/14/18 12:00 05/14/18 00:00 05/14/18 12:00 Intake and Output: 05/14/18 05/14/18 06:59 18:59 Intake Total 690 400 Balance 690 400 - Medications Medications: Current Medications Acetaminophen (Tylenol 325mg Tab) 650 mg PO Q4H PRN PRN Reason: Pain, Mild (1-3) Last Admin: 05/14/18 09:30 Dose: 650 mg Albuterol/Ipratropium (Combivent Respimat) 2 puff INH BID PRN PRN Reason: Shortness of Breath Albuterol/Ipratropium (Duoneb 3 Mg/0.5 Mg (3 Ml) Ud) 3 ml INH RQ6 [facility] Last Admin: 05/14/18 07:45 Dose: 3 ml Ascorbic Acid (Vitamin C 250 Mg Tab) 250 mg PO DAILY [facility] Last Admin: 05/14/18 09:30 Dose: 250 mg Dextrose (Dextrose 50% Inj) 0 ml IV STAT PRN; Protocol PRN Reason: Hypoglycemia Protocol Last Admin: 05/13/18 07:37 Dose: 50 ml Dextrose (Glutose 15) 0 gm PO ONCE PRN; Protocol PRN Reason: Hypoglycemia Protocol Gabapentin (Neurontin) 100 mg PO TID [facility] Last Admin: 05/14/18 09:30 Dose: 100 mg Glucagon (Glucagen Diagnostic Kit) 0 mg IM STAT PRN; Protocol PRN Reason: Hypoglycemia Protocol Gentamicin Sulfate 80 mg/ (Sodium Chloride) 102 mls @ 100 mls/hr IVPB QOD6 [facility]; Protocol Stop: 05/15/18 19:02 Last Admin: 05/13/18 17:14 Dose: 100 mls/hr Vancomycin HCl/Dextrose (Vancocin) 500 mg in 100 mls @ 100 mls/hr IVPB TTS [facility] Stop: 05/18/18 10:01 Last Admin: 05/13/18 17:13 Dose: 100 mls/hr Insulin Aspart (Novolog) 0 unit SC ACHS [facility]; Protocol Last Admin: 05/13/18 22:18 Dose: Not Given Metronidazole (Flagyl) 250 mg PO BID [facility]; Protocol Stop: 05/28/18 18:01 Mirtazapine (Remeron) 7.5 mg PO HS [facility] Last Admin: 05/13/18 21:13 Dose: 7.5 mg Rosuvastatin Calcium (Crestor) 5 mg PO HS [facility] Last Admin: 05/13/18 21:14 Dose: 5 mg Tramadol HCl (Ultram) 25 mg PO TID PRN PRN Reason: Pain, moderate (4-7) Last Admin: 05/14/18 08:38 Dose: 25 mg - Labs Labs: 05/14/18 06:21 05/14/18 06:21 PT 12.9 SECONDS (9.7-12.2) H 05/10/18 08:24 INR 1.2 05/10/18 08:24 APTT 36 SECONDS (21-34) H 05/10/18 08:24 Assessment and Plan - Assessment and Plan (Free Text) Assessment: 63 year old female admitted with sepsis, UTI, sacral ulcer, seen and examined. Awake, responsiveno sob or acute distress. Discussed with DR Stiles and DR Murillo , plan to discharge back to [facility] on iv vanco after HD and flagyl for 2 more weeks. Transportation arranged. Sacral wound to be followed by [facility] in the shelter.
[2018-05-14 18:32] VITALS: PULSE 80
[2018-05-14 18:41] VITALS: BP 97/49; RESP 16; TEMP 98.5; O2SAT 97
--- NOTE | 2018-05-17 07:49 | PN ---
DATE: 05/14/2018 LOCATION: ICU, bed 6. REQUESTED BY: Dr. Filemon Stiles SUBJECTIVE: Ms. Edwards is a 63-year-old elderly obese female with a past medical history significant for longstanding hypertension, diabetes, legally blind, emphysema, COPD, questionable emphysema, decubiti and also bilateral AKA, end-stage renal disease and recurrent UTI, was admitted with altered mental status, hypotension and possible urosepsis and the patient was found to have an UTI with ESBL positive. The patient is feeling much better, complains of constant pain in the leg, not in distress. CURRENT MEDICATIONS: This morning include as follows; Tylenol, DuoNeb inhaler, vitamin C 250 mg p.o. daily, Flagyl 250 mg every 8 hours, gentamicin, vancomycin, Remeron, Crestor and tramadol 25 mg p.o. t.i.d. LABORATORY DATA: Includes as follows; WBC 7.4, hemoglobin 10.9, hematocrit 33.6, platelets 202. Sodium 134, potassium 3.8, chloride 100, CO of 23, BUN 13, creatinine 2.3, glucose 72. PHYSICAL EXAMINATION: VITAL SIGNS: Blood pressure this morning 108/27, pulse 90, respirations 14, temperature 98.7, saturation 99, height 4 feet 2 inches, weight 139 pounds. GENERAL: Mrs. Edwards is slightly old elderly obese female not in distress. HEENT: Pupils normal and reactive to light and accommodation. Conjunctivae pink. Sclerae anicteric. Tongue is moist and the patient is legally blind. No thyroid enlargement. LUNGS: Symmetric on both sides. Bilateral breath sounds present. Clear to auscultation. CVS: [place] at the fifth intercostal space, midclavicular line. S1 and S2 audible. No murmur or gallop. ABDOMEN: Normal in appearance. Soft, tympanic. No guarding. Positive mild lower abdominal discomfort and tenderness present. PIN SORTER AND BAGGER: The patient is alert, awake, oriented x2. Sensory system is grossly within normal limits. Motor system is moving both upper extremities. EXTREMITIES: Status post loop bilateral AKA. IMPRESSION: In summary, Ms. Edwards is a 63-year-old elderly female with; 1. Hypertension; diabetes; chronic obstructive pulmonary disease; legally blind; bilateral above-knee amputation; end-stage renal disease, on hemodialysis with recurrent urinary tract infections. 2. End-stage renal disease. Continue hemodialysis three times a week on Thursday, , Thursday. 3. Urinary tract infection with extended spectrum beta-lactamases Escherichia coli positive. Continue antibiotics as per Dr. Stiles. 4. Pain in the left stump, most likely phantom pain. Continue analgesics as per Dr. Stiles. 5. Diabetes. Continue to monitor Accu-Cheks. The patient is stable from the renal standpoint. The patient may be transferred back to subacute rehab. Thank you for allowing me to participate in your patient's care. The patient will be followed with her clothing man as an outpatient, Dr. Hilario. Asha Saeed MD
== END 2018-05-14 18:00 | DRG 871 ==
LOC: C.ER 07:32 → C.9E 09:39 → C.5S 11:49 → C.9I 16:52
PROVIDERS: ADMIT Internal Medicine; ATTEND Internal Medicine
PROC: 5A1D70Z Performance of Urinary Filtration, Intermittent, Less than 6 Hours Per Day (ICD-10-PCS; principal; 2018-05-11)
DX: A41.9 Sepsis, unspecified organism (principal); N18.6 End stage renal disease; R65.21 Severe sepsis with septic shock; N39.0 Urinary tract infection, site not specified; I13.2 Hypertensive heart and chronic kidney disease with heart failure and with stage 5 chronic kidney disease, or end stage renal disease; R09.02 Hypoxemia; E11.42 Type 2 diabetes mellitus with diabetic polyneuropathy; B96.20 Unspecified Escherichia coli [E. coli] as the cause of diseases classified elsewhere; E11.22 Type 2 diabetes mellitus with diabetic chronic kidney disease; E11.319 Type 2 diabetes mellitus with unspecified diabetic retinopathy without macular edema; E11.51 Type 2 diabetes mellitus with diabetic peripheral angiopathy without gangrene; E66.9 Obesity, unspecified; E78.00 Pure hypercholesterolemia, unspecified; E87.6 Hypokalemia; F32.9 Major depressive disorder, single episode, unspecified; I45.6 Pre-excitation syndrome; H54.8 Legal blindness, as defined in USA; I50.9 Heart failure, unspecified; J43.9 Emphysema, unspecified; K21.9 Gastro-esophageal reflux disease without esophagitis; L89.150 Pressure ulcer of sacral region, unstageable; Z51.5 Encounter for palliative care; Z66 Do not resuscitate; I69.320 Aphasia following cerebral infarction; Z87.891 Personal history of nicotine dependence; Z99.2 Dependence on renal dialysis; F41.9 Anxiety disorder, unspecified; Z88.0 Allergy status to penicillin